=== PATIENT | female | born 1955 | race American Indian/Alaskan Native ===

== ENCOUNTER 2016-10-25 14:22 | Observation (INO) | payer MEDICARE, OTHER ==
[2016-10-25 14:45] VITALS: BMI 25.3
[2016-10-25] MEDS ORDERED: Sodium Chloride 0.9% 1,000 ML IV ONE (14:57)
--- NOTE | 2016-10-25 14:58 | ED PDOC ---
Arrival/HPI - General Chief Complaint: Weakness/Neurological Deficit Time Seen by Provider: 10/25/16 14:38 Historian: Patient - History of Present Illness Narrative History of Present Illness (Text): 10/25/16 14:59 61yo female with PMHx of Afib, Asthma, Hypertension, BIBA for complaint of generalized weakness. Reports clear productive cough since Saturday. States she had chest pain earlier today that lasted for minutes. Also admits to melena since Saturday. She saw her PMD 3weeks ago. Denies fever, chills, abdominal pain , nausea, vomiting, diarrhea, constipation, SOB, diaphoresis, LE edema, sore throat, sick contact, travel. Past Medical History - Provider Review Nursing Documentation Reviewed: Yes - Infectious Disease Hx of Infectious Diseases: None - Tetanus Immunization Tetanus Immunization: Unknown - Past Medical History Past Medical History: No Previous - Cardiac Hx Cardiac Disorders: Yes Hx Cardiac Arrhythmia: Yes Hx Heart Murmur: Yes Hx Hypertension: Yes - Pulmonary Hx Respiratory Disorders: Yes Hx Asthma: Yes Hx Chronic Obstructive Pulmonary Disease (COPD): Yes - Neurological Hx Neurological Disorder: No Hx Paralysis: No - HEENT Hx HEENT Disorder: No Hx Blind: No Hx Cataracts: No Hx Deafness: No Hx Difficulty Chewing: No Hx Epistaxis: No Hx Glaucoma: No Hx Macular Degeneration: No - Renal Hx Renal Disorder: No - Endocrine/Metabolic Hx Endocrine Disorders: No - Hematological/Oncological Hx Blood Disorders: Yes Hx Blood Transfusions: Yes (4 YRS AGO) - Integumentary Hx Dermatological Disorder: No Hx Cellulitis: No - Musculoskeletal/Rheumatological Hx Musculoskeletal Disorders: Yes Hx Falls: Yes - Gastrointestinal Hx Gastrointestinal Disorders: No Hx Crohn's Disease: No Hx Diverticulitis: No Hx Gastroesophageal Reflux: No Hx Gastrointestinal Ulcer: No Hx Liver Failure: No - Genitourinary/Gynecological Hx Genitourinary Disorders: No - Psychiatric Hx Psychophysiologic Disorder: No Hx Emotional Abuse: No Hx Physical Abuse: No Hx Substance Use: No - Surgical History Hx Cardiac Catheterization: Yes Hx Cholecystectomy: Yes Other/Comment: B/L Bunion removal to feet - Anesthesia Hx Anesthesia Reactions: No Hx Malignant Hyperthermia: No - Suicidal Assessment Feels Threatened In Home Enviroment: No Family/Social History - Physician Review Nursing Documentation Reviewed: Yes Family/Social History: Unknown Family HX Smoking Status: Former Smoker Hx Alcohol Use: No Amount per day: 6 Hx Substance Use: No Hx Substance Use Treatment: No Allergies/Home Meds Allergies/Adverse Reactions: Allergies ALTOIDS Allergy (Intermediate, Uncoded 10/25/16 14:45) SWELLING FACE/LIPS UNKNOWN FOOD Allergy (Intermediate, Uncoded 10/25/16 14:45) SWELLING FACE/LIPS SEEN IN ED 03/07/16 Home Medications: Home Meds Medication Instructions Recorded Confirmed Aspirin [Aspir 81] 81 mg PO DAILY 01/16/13 06/10/16 Fluticasone/Salmeterol [Advair 1 puff IH BID PRN 01/16/13 06/10/16 250-50 Diskus] Metoprolol Tartrate [Lopressor] 25 mg PO BID 01/16/13 06/10/16 Tiotropium [Spiriva] 18 mcg IH DAILY PRN 01/16/13 06/10/16 Enalapril Maleate [Enalapril] 5 mg PO QAM 03/08/16 06/10/16 Furosemide 40 mg PO QAM 03/08/16 06/10/16 traMADol [Ultram] 50 mg PO TID PRN 05/29/16 06/10/16 Review of Systems - Physician Review All systems were reviewed & negative as marked: Yes - Review of Systems Constitutional: Fatigue Eyes: Normal ENT: Normal Respiratory: Normal Cardiovascular: Chest Pain. absent: Palpitations, Edema, Calf Pain Gastrointestinal: Stool Changes (Melena). absent: Abdominal Pain, Constipation , Diarrhea, Nausea, Vomiting, Hematochezia, Hematemesis Genitourinary Female: Normal Musculoskeletal: Normal Skin: Normal Neurological: Normal Endocrine: Normal Hemo/Lymphatic: Normal Psychiatric: Normal Physical Exam Vital Signs Reviewed: Yes Vital Signs Temp Pulse Resp BP Pulse Ox 10/25/16 20:08 102 H 20 123/81 100 10/25/16 17:00 126 H 18 152/79 H 100 10/25/16 15:47 98.4 F 115 H 20 158/86 H 100 Temperature: Afebrile Blood Pressure: Normal Pulse: Regular Respiratory Rate: Normal Appearance: Positive for: Well-Appearing, Non-Toxic, Comfortable Pain Distress: None Mental Status: Positive for: Alert and Oriented X 3 - Systems Exam Head: Present: Atraumatic, Normocephalic Pupils: Present: PERRL Extroacular Muscles: Present: EOMI Conjunctiva: Present: Normal Mouth: Present: Moist Mucous Membranes Neck: Present: Normal Range of Motion Respiratory/Chest: Present: Clear to Auscultation, Good Air Exchange. No: Respiratory Distress, Accessory Muscle Use, Wheezes, Decreased Breath Sounds, Rales, Retracting, Rhonchi Cardiovascular: Present: Regular Rate and Rhythm, Normal S1, S2. No: Murmurs Abdomen: Present: Normal Bowel Sounds. No: Tenderness, Distention, Peritoneal Signs, Rebound, Guarding, McBurney's Point Tender, Rovsing's Sign Present Back: Present: Normal Inspection Upper Extremity: Present: Normal Inspection. No: Cyanosis, Edema Lower Extremity: Present: Normal Inspection. No: Edema Neurological: Present: GCS=15, CN II-XII Intact, Speech Normal Skin: Present: Warm, Dry, Normal Color. No: Rashes Psychiatric: Present: Alert, Oriented x 3, Normal Insight, Normal Concentration Medical Decision Making ED Course and Treatment: 10/25/16 22:30 PT presented for stated history. She remained tacy in ED even with hydration. Lab was reviewed with elevated LFT, Cr. and Lactate noted. Elevated LFT was pt' s baseline when compared to previous lab result. Review of pt's lab and VS however indicated that pt does not meet the Sepsis criteria. She had no leukocytosis and hypotensive. CXR was NAD. Rocephin and Zithromax was given secondary to pt's complaint of productive cough and history of COPD. Case was DW Dr. Guerra and pt was placed in Tele OBS. Result and plan was DW the pt and she agreed. - Lab Interpretations Lab Results: 10/25/16 15:59 10/25/16 15:59 Lab Results 10/25/16 18:10: Influenza Typ A,B (EIA) Negative for flu a/b 10/25/16 16:05: Phosphorus 3.4, Magnesium 1.6 L 10/25/16 15:59: WBC 7.2, RBC 3.72, Hgb 11.7 L, Hct 33.9 L, MCV 91.1, MCH 31.5, MCHC 34.5, RDW 14.5, Plt Count 249, MPV 9.9, Gran % 62.4, Lymph % (Auto) 22.6, Cooper % (Auto) 14.1 H, Eos % (Auto) 0.6 L, Baso % (Auto) 0.3, Gran # 4.48, Lymph # 1.6, Cooper # 1.0 H, Eos # 0.0, Baso # 0.02, PT 10.7, INR 0.99, APTT 23.3 L, pO2 36, VBG pH 7.30 L, VBG pCO2 51.0, VBG HCO3 25.1, VBG Total CO2 26.7, VBG O2 Sat (Calc) 68.2 H, VBG Base Excess -2.0 L, VBG Potassium 3.7, Glucose 176 H, Lactate 4.4 H*, FiO2 21.0, Sodium 133.0, Potassium 4.0, Chloride 97.0 L, Carbon Dioxide 25, Anion Gap 16, BUN 17, Creatinine 1.5 H, Est GFR ( Amer) 43, Est GFR (Non-Af Amer) 35, Random Glucose 169 H, Calcium 9.9, Total Bilirubin 1.0 , AST 175 H, ALT 113 H, Alkaline Phosphatase 154 H, Lactate Dehydrogenase 690, Total Creatine Kinase 70, Troponin I < 0.01, Total Protein 7.9, Albumin 4.1, Globulin 3.8, Albumin/Globulin Ratio 1.1, Venous Blood Potassium 3.7 - RAD Interpretation Radiology Orders: 10/25/16 14:58 CHEST PORTABLE [RAD] Stat - EKG Interpretation Interpreted by ED Physician: Yes (sinus tachy with PAC; LAD; LVH @ 101bpm. No ST changes) - Medication Orders Current Medication Orders: Discontinued Medications Sodium Chloride (Sodium Chloride 0.9%) 1,000 mls @ 250 mls/hr IV .Q4H ONE Stop: 10/25/16 18:56 Last Admin: 10/25/16 16:14 Dose: 250 MLS/HR eMAR Start Stop Document 10/25/16 16:14 OCS (Rec: 10/25/16 16:14 OCS [facility] [id number]) Intravenous Solution Start Date 10/25/16 Start Time 16:14 Sodium Chloride 2,200 ml/ IV (SUPPLIES) 2,200 mls @ 4,408.92 mls/hr IV ONCE ONE PRN Reason: 60 ML/KG/HR Stop: 10/25/16 16:25 Azithromycin (Zithromax 500mg In Ns) 250 mls @ 167 mls/hr IVPB STAT STA PRN Reason: Protocol Stop: 10/25/16 18:47 Last Admin: 10/25/16 20:27 Dose: 167 MLS/HR eMAR Start Stop Document 10/25/16 20:27 OCS (Rec: 10/25/16 20:28 OCS [facility] [id number]) Intravenous Solution Start Date 10/25/16 Start Time 20:28 Ceftriaxone Sodium (Rocephin 1 Gram Ivpb) 100 mls @ 200 mls/hr IVPB STAT STA PRN Reason: Protocol Stop: 10/25/16 17:46 Last Admin: 10/25/16 17:31 Dose: 200 MLS/HR eMAR Start Stop Document 10/25/16 17:31 OCS (Rec: 10/25/16 17:31 OCS [facility] [id number]) Intravenous Solution Start Date 10/25/16 Start Time 17:31 Disposition/Present on Arrival - Present on Arrival Any Indicators Present on Arrival: No History of DVT/PE: No History of Uncontrolled Diabetes: No Urinary Catheter: No History of Decub. Ulcer: No History Surgical Site Infection Following: None - Disposition Have Diagnosis and Disposition been Completed?: Yes Diagnosis: Chest pain, Bronchitis, Malaise, Elevated liver function tests, Dehydration Disposition: HOME/ ROUTINE Disposition Time: 17:20 Patient Problems: Current Active Problems Problem Status Diagnosed Bronchitis Acute Chest pain Acute Malaise Acute Condition: FAIR
--- NOTE | 2016-10-25 15:36 | RAD ---
HISTORY: chest pain COMPARISON: 07/20/2016 FINDINGS: LUNGS: No active pulmonary disease. PLEURA: No significant pleural effusion identified, no pneumothorax apparent. CARDIOVASCULAR: Normal. OSSEOUS STRUCTURES: No significant abnormalities. VISUALIZED UPPER ABDOMEN: Normal. OTHER FINDINGS: None. IMPRESSION: No active disease.
[2016-10-25 16:07] LABS: ADD MANUAL DIFF? NO
[2016-10-25 16:13] LABS: BASO # 0.02 K/mm3 (0.0-2.0); BASO % 0.3 % (0.0-3.0); EOS % 0.6 % (1.5-5.0); GRAN # 4.48 (1.4-6.5); GRAN % 62.4 % (50.0-68.0); HEMATOCRIT 33.9 % (36.0-48.0); LYMPH # 1.6 (1.2-3.4); LYMPH % 22.6 % (22.0-35.0); MEAN CELL VOLUME 91.1 fL (80.0-105.0); MEAN CORPUSCULAR HEMOGLOBIN 31.5 pg (25.0-35.0); MEAN CORPUSCULAR HGB CONC 34.5 g/dl (31.0-37.0); MEAN PLATELET VOLUME 9.9 fl (7.0-11.0); MONO % 14.1 % (1.0-6.0); PLATELET COUNT 249 10^3/uL (120.0-450.0); RED CELL DISTRIBUTION WIDTH 14.5 % (11.5-14.5); WHITE BLOOD COUNT 7.2 10^3/ul (4.5-11.0)
[2016-10-25 16:21] LABS: ALB/GLOB RATIO 1.1 (1.1-1.8); ALKALINE PHOSPHATASE 154 U/L (38-133); ALT/SGPT 113 U/L (7-56); AST/SGOT 175 U/L (15-39); BLOOD UREA NITROGEN 17 mg/dL (7-21); CALCIUM 9.9 mg/dL (8.4-10.5); CARBON DIOXIDE 25 mmol/L (21-33); CHLORIDE 95 mmol/L (98-107); GFR AFRICAN-AMERICAN 43; GLUCOSE,RANDOM 169 mg/dL (70-110); INR 0.99 (0.93-1.08); PARTIAL THROMBOPLASTIN TIME 23.3 Seconds (23.7-30.8); SODIUM 132 mmol/L (132-148); TOTAL PROTEIN 7.9 g/dL (5.8-8.3)
[2016-10-25 16:34] LABS: TROPONIN I < 0.01 ng/mL
[2016-10-25 17:01] LABS: MAGNESIUM 1.6 mg/dL (1.7-2.2); PHOSPHOROUS 3.4 mg/dL (2.5-4.5)
[2016-10-25] MEDS ORDERED: cefTRIAXone 1 gm 100 ML IVPB STA (17:17)
[2016-10-25] MEDS ORDERED: Azithromycin 500MG/NS 250ml 250 ML IVPB STA (17:18)
[2016-10-25 20:00] LABS: URINE BILIRUBIN NEGATIVE (NEGATIVE); URINE BLOOD NEGATIVE (NEGATIVE); URINE GLUCOSE (UA) NEGATIVE (NEGATIVE); URINE KETONE TRACE mg/dL (NEGATIVE); URINE LEUKOCYTE ESTERASE TRACE Leu/uL (NEGATIVE); URINE PROTEIN NEGATIVE mg/dL (<30 mg/dL); URINE UROBILINOGEN 0.2 E.U./dL (<1 E.U./dL)
[2016-10-25 20:09] LABS: URINE APPEARANCE SL CLOUDY (CLEAR); URINE COLOR DARK YELLOW (YELLOW)
[2016-10-25 20:19] LABS: URINE RBC 0 - 2 /hpf (0-2)
[2016-10-25 20:20] LABS: URINE BACTERIA RARE (NEG); URINE WBC 0 - 2 /hpf (0-6)
[2016-10-26] MEDS ORDERED: Tiotropium 18 mcg Cap For Inhalation IH PRN (07:10)
[2016-10-26] MEDS ORDERED: Sodium Chloride 0.45% 1,000 ML IV SCH ×2 (07:30→08:30)
[2016-10-26] MEDS ORDERED: Magnesium Sulfate 2 GM in Sodium Chloride 0.9% 100 ML IVPB ONE (08:23)
[2016-10-26 09:04] LABS: ALB/GLOB RATIO 1.1 (1.1-1.8); ALKALINE PHOSPHATASE 120 U/L (38-133); ALT/SGPT 93 U/L (7-56); AST/SGOT 124 U/L (15-39); BILIRUBIN,TOTAL 0.8 mg/dL (0.2-1.3); BLOOD UREA NITROGEN 14 mg/dL (7-21); CARBON DIOXIDE 24 mmol/L (21-33); CHLORIDE 101 mmol/L (98-107); CHOLESTEROL 171 mg/dL (130-200); GFR AFRICAN-AMERICAN > 60; GLUCOSE,RANDOM 105 mg/dL (70-110); MAGNESIUM 1.5 mg/dL (1.7-2.2); PHOSPHOROUS 3.6 mg/dL (2.5-4.5); POTASSIUM 3.4 mmol/L (3.6-5.0); SODIUM 135 mmol/L (132-148); TOTAL PROTEIN 6.8 g/dL (5.8-8.3)
--- NOTE | 2016-10-26 09:14 | US ---
HISTORY: high lfts and high creatinine COMPARISON: None available. TECHNIQUE: Sonographic evaluation of the abdomen. FINDINGS: LIVER: Measures 20.5 cm in sagittal dimension. Echogenic liver may be seen in setting of hepatic parenchymal disease or fatty infiltration. No focal hepatic mass identified. The main portal vein appears patent with normal directional flow. No intrahepatic bile duct dilatation. GALLBLADDER: Cholecystectomy. COMMON BILE DUCT: Measures 4 mm. PANCREAS: Not well visualized. RIGHT KIDNEY: Measures 9.8 x 4.4 x 5.5cm. No obstructing calculus or hydronephrosis identified. LEFT KIDNEY: Measures 8.2 x 5.2 x 5.8cm. No obstructing calculus or hydronephrosis identified. SPLEEN: Measures approximately 5.0 x 3.1 x 2.5 cm. AORTA: Not well-visualized. IVC: Not well-visualized. OTHER FINDINGS: None. IMPRESSION: Hepatomegaly. Echogenic liver may be seen in setting of hepatic parenchymal disease or fatty infiltration. Cholecystectomy.
[2016-10-26] MEDS ORDERED: Potassium Chloride 20 mEq ER Tab PO ONE (09:50)
--- NOTE | 2016-10-26 10:14 | CON ---
DATE: 10/26/2016 SERVICE: Cardiology. CONSULTING PHYSICIAN: Dr. Brittany Beebe. REASON FOR CONSULTATION: Cardiac evaluation. History of mitral regurgitation, shortness of breath, admitted with chest pain, palpitation, felt like she was going to pass out. BRIEF CLINICAL HISTORY: This is a 61-year-old female with past medical history of asthma, paroxysmal atrial fibrillation, hypertension, mitral regurgitation, status post cardiac catheterization many ye ars ago, normal coronaries, moderate to severe mitral regurgitation, papillary muscle dysfunction. T EE was suggested, but patient never showed up and never followed through, came in yesterday with com plaint of very brief episode of chest pain for 1 minute. Prior to that, patient had shortness of [place] ath, felt like she was going to passed out, used pump couple of times, but did not get better (albute rol), so came to the Emergency Room. Denies any episode of chest pain, but complained of shortness o f breath, dyspnea on exertion. PAST MEDICAL HISTORY: Significant for hypertension, history of mitral regurgitation, papillary muscl e dysfunction. MEDINA was suggested, but the patient never showed up. History of asthma and questionab le history of palpitation and paroxysmal atrial fibrillation. PAST SURGICAL HISTORY: Significant for surgery for carpal tunnel syndrome and history of cholecystec aristides and history of bunion removal from the toe. Previous cardiac workup as follows: The patient had a cardiac catheterization done on 02/05/2013 claudia t shows normal coronaries, moderate to severe mitral regurgitation. The patient had a stress test do ne on 01/27/2015 which was negative, ejection fraction 64%, negative for ischemia. The patient had ec ho on 01/26/2015 that shows ejection fraction 50%, moderate mitral regurgitation, mild to moderate tri cuspid regurg, RV systolic pressure 35. Echo shows papillary muscle dysfunction, mild to moderate mi tral regurg, RV systolic pressure 35. MEDINA was suggested and scheduled. The patient never showed up. SOCIAL HISTORY: Denies smoking. Denies any history of alcohol abuse, socially drinks alcohol. FAMILY HISTORY: One brother at the age of 39 with MD. ALLERGIES: ALLERGY TO UNKNOWN FOOD. PHYSICAL EXAMINATION: VITAL SIGNS: Height of the patient 5 feet 7 inches, weight of the [id number] pounds, body mass index 25.4 kg/m2. Temperature afebrile, heart rate 120, blood pressure 142/89. HEENT: PERRLA. Extraocular muscles intact. NECK: Supple. No carotid bruits. No thyromegaly. CHEST: Clear to auscultation. HEART: S1, S2 regular. ABDOMEN: Soft. EXTREMITIES: Clubbing and cyanosis negative. LABORATORY DATA: Blood workup as follows: WBC 7.8, hemoglobin 11.7, hematocrit 33.9, platelet count 249. Chemistry shows sodium 130, potassium 4, chloride 95, carbon dioxide 16, anion gap of 17, BUN 17, creatinine 1.5. IMPRESSION: Acute kidney injury, sinus tachycardia, history of mitral regurgitation, moderate to sev ere; papillary muscle dysfunction, asthma, paroxysmal atrial fibrillation, status post cardiac cathet erization 02/05/2013, normal coronaries, status post a stress test 01/27/2015, normal cardiac perfusi on study. History of echo 01/26/2015 that shows ejection fraction 50%, moderate mitral regurgitation, papillary muscle dysfunction, mild to moderate tricuspid regurgitation, right ventricular systolic p ressure 35. Transesophageal echocardiogram was recommended and scheduled, but patient never showed u p. RECOMMENDATION: 1. We will lower the fluid to prevent going into pulmonary edema. The patient has mitral regurgitat ion. We will cut down to 50 mL an hour. 2. Schedule repeat echo to assess LV function and mitral regurgitation. We will get a stress test t o rule out any ischemia. Low-dose beta-jasmyn. We will follow with you with a lipid profile, TSH, thyroid profile, lipid profile and hemoglobin A1c because fasting blood sugar 169. We will follow wi th you. Also, supplement magnesium and repeat the lab in the morning. Thank you, Dr. Guerra, for providing us the opportunity in taking care of the patient. Brittany Beebe MD cc: [id number] TT: 10/26/2016 10:14:10 Confirmation # [id number] Dictation # [id number] tn
--- NOTE | 2016-10-26 10:19 | HP ---
CHIEF COMPLAINT: Generalized weakness, chest pain. HISTORY OF PRESENT ILLNESS: According to the patient, she feels whole body aches, general weakness, a little bit of cough for the last few days. She did have chest pain for a few minutes, then went aw ay and keeps coming back again. The patient denied any relation to exertion. She has that pain whil e she is sitting. She has no nausea, no dizziness, no other complaint. The patient also denied any fever, chills. However, she has these symptoms for the last few days, seems getting more frequent of chest pain. Her body aches are still there and she still feels generally weak. PAST MEDICAL HISTORY: She has history of hypertension, high cholesterol, history of gout and pseudog out. She had history of back cyst, surgical removed cyst from her back and bunion surgery. She had history of supraventricular tachycardia, palpitations, cardiac arrhythmia, supraventricular, mitral r egurg. No history of coronary artery disease, no history of any cardiac events like NH. She also do es have a history of asthma, sometimes she uses inhalers. ALLERGIES: SHE SAID ALTOIDS, BUT NO OTHER ALLERGIES. SOCIAL HISTORY: No smoking, no drinking. She lives by herself. FAMILY HISTORY: She had a brother had a heart attack at age 39. REVIEW OF SYSTEMS: Shows complaint of knee arthritis, knee pain, back pain. Sometimes she does comp candi of dyspnea or cough, wheezing. Otherwise, negative. HOME MEDICATIONS: She has tramadol, Cardizem-CD 240, Spiriva inhalers, Naprosyn, Lopressor 25 b.i.d. , Mobic 7.5. Probably, patient does not take both of them, but she takes it when she needs it. Lasi x 40 every day, Advair, enalapril 5 mg once a day, colchicine 0.6 once a day, aspirin 81 once a day, allopurinol 100 once a day. PHYSICAL EXAMINATION: Please be advised that patient was seen on 10/25/2016: GENERAL: The patient in the bed. She is comfortable, no respiratory distress, does not seem to be i n any significant distress. VITAL SIGNS: Temperature 98, heart rate 115, blood pressure 158/86, respirations 20, saturating 100% . HEAD AND NECK: Normal. No JVD, no thyromegaly. CHEST: Clear. CARDIAC: First sound, second sound normal. ABDOMEN: Soft, nontender, obese. EXTREMITIES: No edema. NEUROLOGIC: She is normal. She is alert, awake, oriented x 3, moves all extremities. LABORATORY DATA: White count 7.2, hemoglobin 11.7, hematocrit 33.9, platelets 249. Chemistry: Sodi um 132, potassium 4, chloride 95, bicarbonate 25, BUN 17, creatinine 1.5, blood sugar 169. Her liver function test: AST and ALT is elevated including also alkaline phosphatase. The patient also had m agnesium which is low at 1.6. Her lactate level was slightly elevated. The patient also had a urina lysis, which was negative. She also had serology for influenza type A and B and it was negative. Sh e also had a PT/INR, which is normal, PTT was normal. Her ABG shows pH 7.30, pCO2 36, pCO2 51. That is venous blood and lactate level was 4.4 on room air. Chest x-ray also was done, which shows no active pulmonary disease. Cardiovascular is normal and the pleura with no significant effusion. Also, she had an EKG was reported. There is no acute ST eleva tion reported. IMPRESSION AND PLAN: 1. This is a 61-year-old female with history of hypertension, moderate mitral regurgitation. Came i n with generalized weakness, cough, chest pain, which is not related to her cough. We will admit the patient to telemetry. We will get cardiac enzymes, cardiology consult, ID consult. Cardiology, Dr. Beebe. ID consult, Dr. Florez. We will put the patient on Rocephin, Zithromax for now. Cultures hav e been obtained. 2. Renal insufficiency. 3. Abnormal liver functions test, hepatitis, could be drug induced versus vital. Will consider GI c onsult. Will give the patient IV fluid. Repeat labs in the morning. We did advise the patient not to take nonsteroidals unnecessarily. Hold off on any nonsteroidal anti-inflammatory drugs. IV hydra tion. Hold on Lasix. Continue IV. Repeat labs and will follow up clinically. Ultrasound of the li can and kidney has been ordered and will continue follow up with the patient and other consultants. Baltazar Guerra MD cc: [phone] TT: 10/26/2016 10:18:48 en
[2016-10-26] MEDS: diltiaZEM 240 mg/24 Hours CD Cap PO SCH (11:30)
[2016-10-26] MEDS: cefTRIAXone 1 gm 100 ML IVPB SCH (12:45)
--- NOTE | 2016-10-26 13:33 | CARD ---
APPROVED REPORT EKG Measurement Heart [id number] <Conclusion> Sinus tachycardia with premature atrial complexes with aberrant conduction Left axis deviation Moderate voltage criteria for LVH, may be normal variant Nonspecific ST abnormality Abnormal ECG
[2016-10-26] MEDS: Azithromycin 500MG/NS 250ml 250 ML IVPB SCH ×2 (13:41)
--- NOTE | 2016-10-26 17:46 | CARD ---
APPROVED REPORT EXAM: Two-dimensional and M-mode echocardiogram with Doppler and color Doppler. INDICATION CP/LVFX/MR 2D DIMENSIONS IVSd1.0 (0.7-1.1cm)LVDd4.1 (3.9-5.9cm) PWd1.3 (0.7-1.1cm)LVDs3.0 (2.5-4.0cm) FS (%) 27.4 %LVEF (%)53.6 (>50%) M-Mode DIMENSIONS Aortic Root3.10 (2.2-3.7cm)Aortic Cusp Exc.1.50 (1.5-2.0cm) Aortic Valve AoV Peak Clpavxzg758.0cm/[place] Peak GR.9mmHg Mitral Valve MV E Pwrvowbv51.3cm/sMV A Svgoxzyy989.0cm/sE/A ratio0.5 TDI Lateral E' Peak V8.87cm/sMedial E' Peak V7.70cm/sE/Lateral E'6.1 E/Medial E'7.1 Pulmonary Valve PV Peak Ubivknfz58.9cm/sPV Peak Grad.2mmHg Tricuspid Valve TR Peak Mirclino343us/sRAP [id number] Peak Gr.29mmHg [id number] LEFT VENTRICLE The left ventricle is normal size. There is normal left ventricular wall thickness. The left ventricular function is normal.EF-55-60% There is borderline hypokinesis in the apical anterior wall. Transmitral Doppler flow pattern is Grade III-reversible restrictive diastolic dysfunction. No left ventricle thrombus noted on this study. There is no ventricular septal defect visualized. There is no left ventricular aneurysm. There is no mass noted in the left ventricle. RIGHT VENTRICLE The right ventricle is mildly to moderately dilated. There is normal right ventricular wall thickness. Systolic function of RV is mildly reduced. ATRIA The left atrium is mildly dilated. The right atrium is mildly dilated. The atrial septum is aneurysmal. AORTIC VALVE The aortic valve is thickened but opens well. There is trace aortic regurgitation. There is no aortic valvular stenosis. There is no aortic valvular vegetation. MITRAL VALVE The mitral valve is thickened but opens well. Mitral annular calcification is mild to moderate. Mitral regurgitation is severe. The mitral regurgitant jet is posteriorly directed, which is consistent with anterior leaflet pathology. There is no mitral valve stenosis. A mild mitral valve prolapse is present, of anterior leaflet TRICUSPID VALVE The tricuspid valve leaflets are thickened , but open well. There is moderate tricuspid regurgitation.RVSP-39 mmof Hg. There is no tricuspid valve stenosis. There is no tricuspid valve prolapse or vegetation. PULMONIC VALVE The pulmonic valve is mildly thickened. There is no pulmonic valvular regurgitation. There is no pulmonic valvular stenosis. GREAT VESSELS The aortic root is normal in size. The ascending aorta is normal in size. The pulmonary artery is normal. The IVC is normal in size and collapses >50% with inspiration. PERICARDIAL EFFUSION There is no pleural effusion. There is no pericardial effusion. <Conclusion> The left ventricle is normal size. There is normal left ventricular wall thickness. The left ventricular function is normal.EF-55-60% The right ventricle is mildly to moderately dilated. Systolic function of RV is mildly reduced. There is trace aortic regurgitation. Mitral regurgitation is severe. The mitral regurgitant jet is posteriorly directed, which is consistent with anterior leaflet pathology. There is moderate tricuspid regurgitation.RVSP-39 mmof Hg. The IVC is normal in size and collapses >50% with inspiration. There is no pericardial effusion.
--- NOTE | 2016-10-26 18:15 | CP.PCM.CON ---
History of Present Illness - History of Present Illness History of Present Illness: 61 year old female with PMH of atrial fibrillation, asthma, HTN came in to [facility] because of generalized weakness, associated with cough productive of clear phlegm and some shortness of breath. She denies fever or chills, no nausea or vomiting, no chest pain, no headache or dizziness, no abdominal pain, no diarrhea, no dysuria, no sore throat, no colds. Infectious Diseases consult is requested to further evaluate and manage. Review of Systems - Review of Systems All systems: reviewed and no additional remarkable complaints except (as per HPI ) Past Patient History - Infectious Disease Hx of Infectious Diseases: None - Tetanus Immunizations Tetanus Immunization: Unknown - Past Social History Smoking Status: Former Smoker - CARDIAC Hx Cardiac Disorders: Yes Hx Cardia Arrhythmia: Yes Hx Heart Murmur: Yes Hx Hypertension: Yes - PULMONARY Hx Respiratory Disorders: Yes Hx Asthma: Yes Hx Chronic Obstructive Pulmonary Disease (COPD): Yes - NEUROLOGICAL Hx Neurological Disorder: No Hx Paralysis: No - HEENT Hx HEENT Problems: No Hx Blind: No Hx Cataracts: No Hx Deafness: No Hx Difficulty Chewing: No Hx Epistaxis: No Hx Glaucoma: No Hx Macular Degeneration: No - RENAL Hx Chronic Kidney Disease: No - ENDOCRINE/METABOLIC Hx Endocrine Disorders: No - HEMATOLOGICAL/ONCOLOGICAL Hx Blood Disorders: Yes Hx Blood Transfusions: Yes (4 YRS AGO) - INTEGUMENTARY Hx Dermatological Problems: No Hx Cellulitis: No - MUSCULOSKELETAL/RHEUMATOLOGICAL Hx Musculoskeletal Disorders: Yes Hx Falls: Yes - GASTROINTESTINAL Hx Gastrointestinal Disorders: No Hx Crohn's Disease: No Hx Diverticulitis: No Hx Gastroesophageal Reflux: No Hx Liver Failure: No - GENITOURINARY/GYNECOLOGICAL Hx Genitourinary Disorders: No - PSYCHIATRIC Hx Psychophysiologic Disorder: No Hx Emotional Abuse: No Hx Physical Abuse: No Hx Substance Use: No - SURGICAL HISTORY Hx Cardiac Catheterization: Yes Hx Cholecystectomy: Yes Other/Comment: B/L Bunion removal to feet - ANESTHESIA Hx Anesthesia Reactions: No Hx Malignant Hyperthermia: No Meds Allergies/Adverse Reactions: Allergies Allergy/AdvReac Type Severity Reaction Status Date / Time ALTOIDS Allergy Intermediate SWELLING Uncoded 10/25/16 14:45 FACE/LIPS UNKNOWN FOOD Allergy Intermediate SWELLING Uncoded 10/25/16 14:45 FACE/LIPS Physical Exam - Constitutional Appears: Non-toxic, No Acute Distress - Head Exam Head Exam: NORMAL INSPECTION - ENT Exam ENT Exam: Mucous Membranes Moist - Neck Exam Neck exam: Negative for: Lymphadenopathy, Meningismus - Respiratory Exam Respiratory Exam: Decreased Breath Sounds - Cardiovascular Exam Cardiovascular Exam: +S1, +S2 - GI/Abdominal Exam GI & Abdominal Exam: Soft. absent: Tenderness Results - Vital Signs Recent Vital Signs: Last Vital Signs Temp 98.4 F 10/25/16 15:47 Pulse 102 H 10/25/16 20:08 Resp 20 10/25/16 20:08 BP 123/81 10/25/16 20:08 Pulse Ox 100 10/25/16 20:08 - Labs Result Diagrams: 10/25/16 15:59 10/26/16 08:30 Labs: Laboratory Results - last 24 hr 10/25/16 19:45 Urine Color Dark yellow Urine Appearance Sl cloudy Urine pH 6.0 Ur Specific [place] 1.020 Urine Protein Negative Urine Glucose (UA) Negative Urine Ketones Trace H Urine Blood Negative Urine Nitrate Negative Urine Bilirubin Negative Urine Urobilinogen 0.2 Ur Leukocyte Esterase Trace H Urine RBC 0 - 2 Urine WBC 0 - 2 Ur Epithelial Cells 1 - 3 Urine Bacteria Rare Assessment & Plan - Assessment and Plan (Free Text) Plan: Assessment Consider acute bronchitis atrial fibrillation asthma HTN Plan Started patient on Rocephin and Zithromax; follow up blood cx; reviewed CXR which did not show infiltrates; PCT is only 0.15 Will follow clinically
--- NOTE | 2016-10-26 19:25 | CON ---
DATE: 10/26/2016 This patient was seen and evaluated earlier today. This is a 61-year-old patient with a past medical history of paroxysmal atrial fibrillation, hypertension, asthma, admitted with chest pain. The indra ent also was admitted with chest pain and dizziness. The patient also complains of some dark stool s scooter Saturday. No history of vomiting blood. No abdominal pain. The patient also complains of exerti onal shortness of breath. She said this has been progressively for the last 2 years, but recently go t worse. Other past medical history as above. The patient has a history of asthma, history of a colonoscopy done in the [facility] about close to 5 year s ago, history of carpal tunnel syndrome surgery, status post cholecystectomy, and history of bunion surgery done in the past. SOCIAL HISTORY: Denies smoking. Alcohol socially over the weekend. FAMILY HISTORY: Positive for PR, coronary artery disease. Brother at the age of 39 with PR. ALLERGIES TO SOME FOOD. REVIEW OF SYSTEMS: Positive as above. Other systems reviewed and negative. On examination, the patient is lying on the bed not in acute distress. Temperature is 97.8, pulse 97, blood pressure is 105/59, respirations 18. HENT: Atraumatic. Anicteric. NECK: Supple. HEART: S1, S2 heard. LUNGS: Bilateral air entry present. ABDOMEN: Soft. There was no tenderness. HEART: S1, S2 is heard. There was a systolic murmur present. ABDOMEN: Soft. There is no mass, no tenderness. EXTREMITIES: No edema, no cyanosis. CLINICAL LABORATORIES: Hemoglobin 11.7, hematocrit 33.9, WBC 7.2, platelets 249, BUN 14, creatinine 0.9, total bilirubin is 1.5. AST is 134, ALT is 93, improving. The patient did have an ultrasound scan of the abdomen done status post cholecystectomy. Common bile duct is normal; measures only 4 mm. IMPRESSION: This 61-year-old patient with significant valvular disease secondary to the papular dysf unction, and a history of paroxysmal atrial fibrillation in the past, admitted with chest pain and al so shortness of breath. The patient also was found to have an elevated liver enzymes. Status post c holecystectomy, common bile duct is normal. The patient has come in with exertion. The likelihood o f questionable history of dark stools. On exam, the patient's hemoglobin was normal at 11.7 . Her other comorbidities include asthma, hypertension, asthma, suspected asthmatic bronchitis. The patient has been started on antibiotic, ce ftriaxone. The LFTs showing improving trend. The most likely cause for the LFTs could be secondary to the hepat ic congestion. Hepatitis profile has been requested. Will follow up on that. Followup of CBC. The patient did have a colonoscopy done close to 5 years ago in [facility]. She was told there were no polyp s. Will continue to closely follow up her care, and suggest further management based on the clinical cou rse. Sun Ramirez MD cc: [phone] TT: 10/26/2016 19:25:05 Confirmation # [id number] Dictation # [id number] geoffrey
[2016-10-27 05:52] VITALS: RESP 18
--- NOTE | 2016-10-27 06:55 | CP.PCM.PN ---
Subjective - Date & Time of Evaluation Date of Evaluation: 10/27/16 Time of Evaluation: 06:54 - Subjective Subjective: Nurse Maya calls :"Right sided chest pain." Patient was seen at bedside. Complains of waking up with left sided chest pain 20 minutes ago, at 8 /10 in the beginning now at 5/10, heaviness, no radiation of pain. No complaints of sob, nausea, sweating, palpitation. Has no other complaints. EKG troponin were ordered. This 61 year odl woman was admitted with body ache , generalized weakness, cough, Has PMH of HTN,HLD,Gout, pseudo gout, SVT, MR. Objective - Vital Signs/Intake and Output Vital Signs (last 24 hours): Temp Pulse Resp BP Pulse Ox 98.0 F 83 18 133/76 99 10/27/16 05:51 10/27/16 05:51 10/27/16 05:51 10/27/16 05:51 10/27/16 05:51 Intake and Output: 10/26/16 10/27/16 18:59 06:59 Intake Total 180 1610 Output Total 1300 Balance -1120 1610 - Medications Medications: Current Medications Allopurinol (Zyloprim) 100 mg PO DAILY [facility] Last Admin: 10/26/16 11:31 Dose: 100 mg Aspirin (Ecotrin) 81 mg PO DAILY [facility] Last Admin: 10/26/16 11:31 Dose: 81 mg Diltiazem HCl (Cardizem Cd) 240 mg PO DAILY [facility] Last Admin: 10/26/16 11:30 Dose: 240 mg Azithromycin (Zithromax 500mg In Ns) 250 mls @ 167 mls/hr IVPB DAILY [facility] PRN Reason: Protocol Last Admin: 10/26/16 13:41 Dose: 167 mls/hr Ceftriaxone Sodium (Rocephin 1 Gram Ivpb) 100 mls @ 100 mls/hr IVPB DAILY [facility] PRN Reason: Protocol Last Admin: 10/26/16 12:45 Dose: 100 mls/hr Lisinopril (Zestril) 5 mg PO DAILY [facility] Last Admin: 10/26/16 11:31 Dose: 5 mg Metoprolol Tartrate (Lopressor) 25 mg PO BID [facility] Last Admin: 10/26/16 18:15 Dose: 25 mg Tiotropium [place] (Spiriva) 18 mcg IH DAILY PRN PRN Reason: Cough and congestion Tramadol HCl (Ultram) 50 mg PO TID PRN PRN Reason: Pain, moderate (4-7) - Labs Labs: 10/26/16 08:30 PT 10.7 Seconds (9.9-11.8) 10/25/16 15:59 INR 0.99 (0.93-1.08) 10/25/16 15:59 APTT 23.3 Seconds (23.7-30.8) L 10/25/16 15:59 - Constitutional Appears: Well, No Acute Distress - Head Exam Head Exam: ATRAUMATIC, NORMAL INSPECTION, NORMOCEPHALIC - Eye Exam Eye Exam: Normal appearance - ENT Exam ENT Exam: Normal External Ear Exam - Neck Exam Neck Exam: Normal Inspection - Respiratory Exam Respiratory Exam: Clear to Ausculation Bilateral, NORMAL BREATHING PATTERN. absent: Accessory Muscle Use, Chest Wall Tenderness, Rhonchi, Wheezes, Respiratory Distress, Stridor - Cardiovascular Exam Cardiovascular Exam: REGULAR RHYTHM, +S1 (Normal.), +S2 (Normal.). absent: JVD - GI/Abdominal Exam GI & Abdominal Exam: Normal Bowel Sounds. absent: Distended - Rectal Exam Rectal Exam: Deferred - Extremities Exam Extremities Exam: Normal Inspection - Back Exam Back Exam: NORMAL INSPECTION - Neurological Exam Neurological Exam: Oriented x3 - Psychiatric Exam Psychiatric exam: Normal Affect, Normal Mood, Suicidal Ideation - Skin Skin Exam: Normal Color Assessment and Plan - Assessment and Plan (Free Text) Assessment: A/P : Chest pain. Abnormal LFT. Anemia. EKG- New flipped T's in 1,aVL, II. Troponin -Pending. 0.4mg SL NTG. Serial EKG,troponins.
[2016-10-27 08:14] LABS: HEMATOCRIT 29.2 % (36.0-48.0); MEAN CELL VOLUME 91.8 fL (80.0-105.0); MEAN CORPUSCULAR HEMOGLOBIN 31.4 pg (25.0-35.0); MEAN CORPUSCULAR HGB CONC 34.2 g/dl (31.0-37.0); MEAN PLATELET VOLUME 10.2 fl (7.0-11.0); RED CELL DISTRIBUTION WIDTH 14.7 % (11.5-14.5); WHITE BLOOD COUNT 4.8 10^3/ul (4.5-11.0)
[2016-10-27 08:18] LABS: ALKALINE PHOSPHATASE 112 U/L (38-133); ALT/SGPT 90 U/L (7-56); AST/SGOT 126 U/L (15-39); BILIRUBIN,TOTAL 0.7 mg/dL (0.2-1.3); BLOOD UREA NITROGEN 9 mg/dL (7-21); CALCIUM 9.2 mg/dL (8.4-10.5); CARBON DIOXIDE 23 mmol/L (21-33); CHLORIDE 104 mmol/L (98-107); GFR AFRICAN-AMERICAN > 60; GLUCOSE,RANDOM 91 mg/dL (70-110); POTASSIUM 3.8 mmol/L (3.6-5.0); SODIUM 135 mmol/L (132-148); TOTAL PROTEIN 6.5 g/dL (5.8-8.3)
[2016-10-27] MEDS: diltiaZEM 240 mg/24 Hours CD Cap PO SCH (10:27)
[2016-10-27] MEDS: cefTRIAXone 1 gm 100 ML IVPB SCH (10:30)
[2016-10-27] MEDS: Azithromycin 500MG/NS 250ml 250 ML IVPB SCH (10:30)
[2016-10-27 16:34] VITALS: TEMP 98; O2SAT 100
[2016-10-27 17:24] VITALS: BP 91/69; PULSE 75
[2016-10-27] MEDS ORDERED: Pantoprazole 40 mg EC Tab PO STA (18:07)
--- NOTE | 2016-10-27 19:55 | CARD ---
APPROVED REPORT EKG Measurement Heart [id number] <Conclusion> Sinus rhythm with premature atrial complexes Minimal voltage criteria for LVH, may be normal variant consider inferior ischemia Borderline ECG
--- NOTE | 2016-10-27 20:03 | CARD ---
APPROVED REPORT EKG Measurement Heart [id number] <Conclusion> arm lead reversal, Sinus rhythm with premature atrial complexes Septal infarct, age undetermined Abnormal ECG
--- NOTE | 2016-10-27 21:32 | CP.PCM.PN ---
Subjective - Date & Time of Evaluation Date of Evaluation: 10/27/16 Time of Evaluation: 12:30 - Subjective Subjective: Comfortable in bed, not in distress, not short of breath at rest but still with dyspnea on exertion. No fevers overnight. Objective - Vital Signs/Intake and Output Vital Signs (last 24 hours): Temp Pulse Resp BP Pulse Ox 98.0 F 75 18 91/69 L 100 10/27/16 16:33 10/27/16 17:23 10/27/16 16:33 10/27/16 17:23 10/27/16 16:33 Intake and Output: 10/27/16 10/28/16 18:59 06:59 Intake Total 1190 Balance 1190 - Medications Medications: Current Medications Allopurinol (Zyloprim) 100 mg PO DAILY [facility] Last Admin: 10/27/16 10:27 Dose: 100 mg Aspirin (Ecotrin) 81 mg PO DAILY [facility] Last Admin: 10/27/16 10:27 Dose: 81 mg Diltiazem HCl (Cardizem Cd) 240 mg PO DAILY [facility] Last Admin: 10/27/16 10:27 Dose: 240 mg Lisinopril (Zestril) 5 mg PO DAILY [facility] Last Admin: 10/27/16 10:27 Dose: 5 mg Metoprolol Tartrate (Lopressor) 25 mg PO BID [facility] Last Admin: 10/27/16 17:23 Dose: Not Given Pantoprazole Sodium (Protonix Ec Tab) 40 mg PO 0630 [facility] Tiotropium [place] (Spiriva) 18 mcg IH DAILY PRN PRN Reason: Cough and congestion Tramadol HCl (Ultram) 50 mg PO TID PRN PRN Reason: Pain, moderate (4-7) - Labs Labs: 10/27/16 08:00 10/27/16 08:00 PT 10.7 Seconds (9.9-11.8) 10/25/16 15:59 INR 0.99 (0.93-1.08) 10/25/16 15:59 APTT 23.3 Seconds (23.7-30.8) L 10/25/16 15:59 - Constitutional Appears: Non-toxic, No Acute Distress - Head Exam Head Exam: NORMAL INSPECTION - ENT Exam ENT Exam: Mucous Membranes Moist - Neck Exam Neck Exam: absent: Lymphadenopathy, Meningismus - Respiratory Exam Respiratory Exam: Decreased Breath Sounds - Cardiovascular Exam Cardiovascular Exam: +S1, +S2 - GI/Abdominal Exam GI & Abdominal Exam: Soft. absent: Tenderness Assessment and Plan - Assessment and Plan (Free Text) Plan: Assessment dyspnea probably related to pulmonary edema from severe mitral regurgitation; no evidence or infection noted atrial fibrillation asthma HTN Plan blood cx negative; reviewed CXR which did not show infiltrates; PCT is only 0.15 - will d/c antibiotics and observe Will follow clinically Follow up plan for mitral regurgitation
[2016-10-28] MEDS ORDERED: Pantoprazole 40 mg EC Tab PO SCH (06:30)
--- NOTE | 2016-10-28 07:34 | PN ---
DATE: 10/26/2016 This patient was seen and evaluated today. The patient is comfortable, tolerating the diet. PHYSICAL EXAMINATION: ABDOMEN: Soft. There is no mass palpable. No tenderness. HEART: S1, S2 heard. There is a systolic murmur present. LUNGS: Bilateral air entry present. EXTREMITIES: No edema. No cyanosis. LABORATORY DATA: Hemoglobin 10, hematocrit 29.2, WBCs 4.8, platelets 241. Chemistries showed LFTs: AST is 126, ALT is 90, . IMPRESSION: This is a 61-year-old patient was admitted with atypical chest pain. The patient also f ound to have elevated liver enzymes. GI consult was requested to evaluate. Sonogram was negative, s tatus post cholecystectomy. The patient does binge drinking, mainly during the weekend. Recen tly, she has increased her alcohol intake. She is very concerned about it. She is worried about the liver damage. I did explain to her that part of the liver enzyme elevation could be due to the alco hol and she has promised to change her lifestyle. The patient may benefit from the elective upper ga strointestinal endoscopic evaluation. She did give a history of having colonoscopy done more than 5 years ago. She said there were no polyps at that time. The patient is fully aware of the importance of followup outpatient to have this workup done. Thank you very much for allowing us to participate in the care of the patient. The patient would farhan efit from empiric PPI, Protonix therapy, empiric short course of PPI therapy. Sun Ramirez MD cc: [id number] TT: 10/28/2016 07:33:53 Confirmation # [id number] Dictation # [id number] en
--- NOTE | 2016-10-29 10:29 | DS ---
The patient - she feels better. She has no new complaints. She is comfortable. She wants to go [facility], and will be discharged home today. Her discharge date is 10/27/2016. PHYSICAL EXAMINATION: VITAL SIGNS: Today, temperature 98, heart rate 86, blood pressure 134/88, respirations 19, saturatio n 100%. HEAD AND NECK: Normal. No JVD, no thyromegaly. CHEST: Clear. CARDIAC: First and second sounds are normal. Systolic murmur. ABDOMEN: Soft, obese, nontender. EXTREMITIES: No edema, some varicose veins. NEUROLOGIC: Normal. LABORATORY STUDIES: The patient has urine culture negative. Blood culture negative, and she also walker d a stress thallium, which was negative for ischemia. Echocardiograph: Severe MR. The patient advis ed MEDINA. She refused now. DISCHARGE DIAGNOSES: 1. Severe mitral regurgitation. 2. Chest pain, noncardiac. 3. Hypertension, hypercholesterolemia. 4. Abnormal liver function test. We discontinued allopurinol. We discontinued metoprolol 25 b.i.d. ____ because of low blood pressure of 91, and we will keep enalapril 5 mg 1 a day, and we will keep Cardizem. We will monitor her vitals - blood pressure and heart rate, as outpatient. 5. Renal insufficiency, resolved. We will monitor her kidney function as outpatient. The patient also advised to hold off on colchicine, to hold off on any allopurinol since she has only 1 or 2 ____ per year, and we will monitor her condition for that - only use it p.r.n. for the colchi cine p.r.n. The patient advised to continue tramadol p.r.n., Cardizem CD 240 once a day, Spiriva, La six 40 mg in the morning, Advair, aspirin 81, Protonix 40 mg 1 a day, and follow up in the office. E nalapril 5 mg 1 a day. Baltazar Guerra MD cc: [phone] TT: 10/29/2016 10:28:27 geoffrey
--- NOTE | 2016-10-29 10:31 | PN ---
DATE: 10/26/2016 SUBJECTIVE: The patient is comfortable, no distress. She feels better. She had a stress test done, results still pending, but she feels better. PHYSICAL EXAMINATION: On 10/26: VITAL SIGNS: Temperature 98.4, heart rate 91, blood pressure 115/77, respirations 20, saturation 90 on room air. HEAD AND NECK: Normal. No JVD, no thyromegaly. CHEST: Clear, good entry. CARDIAC: First sound, second sounds are normal. ABDOMEN: Soft, nontender. EXTREMITIES: No edema. NEUROLOGIC: Normal. LABORATORY DATA: The patient had an echocardiogram; laboratory-alan, echocardiogram shows severe neetu ral regurgitations. She also had abnormal liver functions test and high creatinine, and labs were or dered for tomorrow to check on her creatinine and liver functions test. She had also liver ultrasoun d, which shows hepatomegaly, echogenic liver, may be seen in the setting of hepatic parenchymal disea ses or fatty infiltrations. IMPRESSION AND PLAN: 1. Chest pain, dyspnea. The patient was seen by Dr. Beebe. Echocardiography shows severe mitral reg urgitation, stress test still pending. The patient will need a transesophageal echo, she refused. W ill discuss with her later. 2. History of hypertension, history of paroxysmal atrial fibrillation, stable now. No need for any anticoagulation; however, with severe mitral regurgitation, she may need surgical evaluations includi ng mitral valve replacement or valve ligation. Will discuss further with the cardiology consult. 3. The patient does have a history of abnormal liver function tests, high creatinine. Will repeat l abs in the morning. We will repeat chemistry and liver enzymes and so far her ultrasound of the live r shows fatty liver. 4. Valvular heart disease, severe mitral regurgitation, transesophageal echocardiogram recommended. PLAN: Continue current treatment for now. We will follow up clinically. We will discuss further [facility] cardiology. Awaiting a stress test. Baltazar Guerra MD cc: [phone] TT: 10/29/2016 10:30:37 Confirmation # [id number] Dictation # [id number] an
== END 2016-10-27 19:30 | disposition home or self-care (01) ==
LOC: ED 14:22 → ERH 18:11 → 2RSO 21:05 → 5RNO 10-27 14:01
PROVIDERS: ADMIT Internal Medicine; ATTEND Internal Medicine
DX: I08.1 Rheumatic disorders of both mitral and tricuspid valves (principal); R07.89 Other chest pain; J20.9 Acute bronchitis, unspecified; I10 Essential (primary) hypertension; E78.5 Hyperlipidemia, unspecified; I48.0 Paroxysmal atrial fibrillation; J44.9 Chronic obstructive pulmonary disease, unspecified; E86.0 Dehydration; E78.00 Pure hypercholesterolemia, unspecified; J45.909 Unspecified asthma, uncomplicated; M10.9 Gout, unspecified; D64.9 Anemia, unspecified; J81.1 Chronic pulmonary edema; K75.9 Inflammatory liver disease, unspecified; K76.0 Fatty (change of) liver, not elsewhere classified; N28.9 Disorder of kidney and ureter, unspecified; Z79.82 Long term (current) use of aspirin; Z79.899 Other long term (current) drug therapy; Z82.49 Family history of ischemic heart disease and other diseases of the circulatory system; Z87.891 Personal history of nicotine dependence; Z90.49 Acquired absence of other specified parts of digestive tract; Z91.018 Allergy to other foods; R40.2412 Glasgow coma scale score 13-15, at arrival to emergency department; R53.81 Other malaise; R79.89 Other specified abnormal findings of blood chemistry; M17.9 Osteoarthritis of knee, unspecified; M54.9 Dorsalgia, unspecified; M25.569 Pain in unspecified knee; I51.89 Other ill-defined heart diseases; N17.9 Acute kidney failure, unspecified; R00.0 Tachycardia, unspecified
CPT/HCPCS: 36415; 71010; 76700; 80053; 80061; 80074; 81001; 82550; 82803; 83036; 83615; 83735; 84100; 84145; 84443; 84484; 85025; 85027; 85610; 85730; 87040; 87086; 87804; 93005; 93017; 93306; 96365; 96367; 96375; 96376; 99285; G0378; J0456; J0696; J3475; J7030; J7040

== ENCOUNTER 2016-11-07 11:00 | Emergency (ER) | payer MEDICARE, OTHER ==
[2016-11-07 11:01] VITALS: BMI 25.3
[2016-11-07 11:11] VITALS: TEMP 99.2
[2016-11-07] MEDS ORDERED: DiphenhydrAMINE 50 mg/ml Inj IVP STA (11:25)
--- NOTE | 2016-11-07 11:27 | ED PDOC ---
Arrival/HPI - General Chief Complaint: Allergic Reaction Time Seen by Provider: 11/07/16 11:17 Historian: Patient - History of Present Illness Narrative History of Present Illness (Text): 11/07/16 11:18 A 61 year old female, whose past medical history includes hypertension, high cholesterol, gout, and asthma, presents to the emergency department complaining of an allergic reaction that began last night. Patient reports yesterday for dinner she had Popeyes chicken, which she usually does but also had a Chewy yogurt bar. She states afterwards she went to shower and she used her body wash on her face because she ran out of her soap. Patient says before going to bed she felt a bump on the left side of her face but went to sleep without difficulty. This morning upon waking up she noticed swelling to her face and lips. Patient denies any shortness of breath, rash, feeling of throat constricting, or any other complaints at this time. PMD: Dr. Guerra Time/Duration: Other (8-16 hours) Symptom Onset: Gradual Symptom Course: Worsening Quality: Other Activities at Onset: Rest Context: Home Past Medical History - Provider Review Nursing Documentation Reviewed: Yes - Infectious Disease Hx of Infectious Diseases: None - Tetanus Immunization Tetanus Immunization: Unknown - Past Medical History Past Medical History: No Previous - Cardiac Hx Cardiac Disorders: Yes Hx Cardiac Arrhythmia: Yes Hx Heart Murmur: Yes Hx Hypertension: Yes - Pulmonary Hx Respiratory Disorders: Yes Hx Asthma: Yes Hx Chronic Obstructive Pulmonary Disease (COPD): Yes - Neurological Hx Neurological Disorder: No Hx Paralysis: No - HEENT Hx HEENT Disorder: No Hx Sinusitis: Yes - Renal Hx Renal Disorder: No - Endocrine/Metabolic Hx Endocrine Disorders: No - Hematological/Oncological Hx Blood Disorders: Yes Hx Blood Transfusions: Yes - Integumentary Hx Dermatological Disorder: No Hx Cellulitis: No - Musculoskeletal/Rheumatological Hx Musculoskeletal Disorders: Yes Hx Falls: Yes - Gastrointestinal Hx Gastrointestinal Disorders: No Hx Crohn's Disease: No Hx Diverticulitis: No Hx Gastroesophageal Reflux: No Hx Liver Failure: No - Genitourinary/Gynecological Hx Genitourinary Disorders: No - Psychiatric Hx Psychophysiologic Disorder: No Hx Emotional Abuse: No Hx Physical Abuse: No Hx Substance Use: No - Surgical History Hx Cardiac Catheterization: Yes Hx Cholecystectomy: Yes Hx Orthopedic Surgery: Yes - Anesthesia Hx Anesthesia Reactions: No Hx Malignant Hyperthermia: No - Suicidal Assessment Feels Threatened In Home Enviroment: No Family/Social History - Physician Review Nursing Documentation Reviewed: Yes Family/Social History: Unknown Family HX Smoking Status: Former Smoker Hx Alcohol Use: No Amount per day: 6 Hx Substance Use: No Hx Substance Use Treatment: No Allergies/Home Meds Allergies/Adverse Reactions: Allergies ALTOIDS Allergy (Intermediate, Uncoded 11/07/16 11:03) SWELLING FACE/LIPS UNKNOWN FOOD Allergy (Intermediate, Uncoded 11/07/16 11:03) SWELLING FACE/LIPS SEEN IN ED 03/07/16 Home Medications: Home Meds Medication Instructions Recorded Confirmed Fluticasone/Salmeterol [Advair 1 puff IH BID PRN 01/16/13 11/07/16 250-50 Diskus] Metoprolol Tartrate [Lopressor] 25 mg PO BID 01/16/13 11/07/16 Tiotropium [Spiriva] 18 mcg IH DAILY PRN 01/16/13 06/10/16 Furosemide 40 mg PO QAM 03/08/16 11/07/16 traMADol [Ultram] 50 mg PO TID PRN 05/29/16 11/07/16 Review of Systems - Physician Review All systems were reviewed & negative as marked: Yes - Review of Systems Constitutional: Other (facial swelling) ENT: Other (lip swelling; no throat closing sensation) Respiratory: absent: SOB Skin: absent: Rash Physical Exam Vital Signs Reviewed: Yes Vital Signs Temp Pulse Resp BP Pulse Ox 11/07/16 14:17 97 H 18 106/75 95 11/07/16 11:06 99.2 F 112 H 17 102/71 97 Temperature: Afebrile Blood Pressure: Normal Pulse: Tachycardic Respiratory Rate: Normal Appearance: Positive for: Well-Appearing, Non-Toxic, Comfortable Pain Distress: None Mental Status: Positive for: Alert and Oriented X 3 - Systems Exam Head: Present: Atraumatic, Normocephalic, Swelling Pupils: Present: PERRL Extroacular Muscles: Present: EOMI Conjunctiva: Present: Normal Mouth: Present: Moist Mucous Membranes. No: Normal Lips (swelling) Pharnyx: Present: Normal. No: ERYTHEMA, EXUDATE, TONSILS ENLARGED Neck: Present: Normal Range of Motion Respiratory/Chest: Present: Clear to Auscultation, Good Air Exchange. No: Respiratory Distress, Accessory Muscle Use Cardiovascular: Present: Normal S1, S2, Tachycardic. No: Murmurs Abdomen: Present: Normal Bowel Sounds. No: Tenderness, Distention, Peritoneal Signs Upper Extremity: Present: Normal Inspection. No: Cyanosis, Edema Lower Extremity: Present: Normal Inspection. No: Edema Neurological: Present: GCS=15, CN II-XII Intact, Speech Normal Skin: Present: Warm, Dry, Normal Color. No: Rashes Psychiatric: Present: Alert, Oriented x 3, Normal Insight, Normal Concentration Medical Decision Making ED Course and Treatment: 11/07/16 11:18 Impression: A 61 year old female with swelling to the face and lips. Differential Diagnosis included but are not limited to: Allergic reaction Plan: -- Solu-Medrol and Benadryl -- Reassess and disposition Prior Visits: Notes and results from previous visits were reviewed. The patient last presented to the emergency department on 10/25/16 for evaluation of generalized weakness. Progress Notes: 11/07/16 13:52 On reevaluation the patient feels better and is in no acute distress. Patient oxygen saturation is 100. She is sitting up eating food without difficulty. I have discussed the results and plan with the patient, who expresses understanding. Patient given the opportunity to ask question, all questions were answered and there is agreement with the plan to discharge the patient home. Patient is stable for discharge. Patient was instructed to follow up with physician/clinic in 1-2 days or return if symptoms persist/worsen or new concerning symptoms arise. - Medication Orders Current Medication Orders: Discontinued Medications Dexamethasone (Decadron Inj) 10 mg IM STAT STA Stop: 11/07/16 11:59 Last Admin: 11/07/16 12:11 Dose: 10 mg Diphenhydramine HCl (Benadryl) 25 mg IVP STAT STA Stop: 11/07/16 11:26 Diphenhydramine HCl (Benadryl) 25 mg PO STAT STA Stop: 11/07/16 11:59 Last Admin: 11/07/16 12:11 Dose: 25 mg Methylprednisolone (Solu-Medrol) 125 mg IVP STAT STA Stop: 11/07/16 11:25 - Scribe Statement The provider has reviewed the documentation as recorded by the Robert Mix Provider Scribe Attestation: All medical record entries made by the Scribe were at my direction and personally dictated by me. I have reviewed the chart and agree that the record accurately reflects my personal performance of the history, physical exam, medical decision making, and the department course for this patient. I have also personally directed, reviewed, and agree with the discharge instructions and disposition. Disposition/Present on Arrival - Present on Arrival Any Indicators Present on Arrival: No History of DVT/PE: No History of Uncontrolled Diabetes: No Urinary Catheter: No History of Decub. Ulcer: No History Surgical Site Infection Following: None - Disposition Have Diagnosis and Disposition been Completed?: Yes Diagnosis: Allergic reaction Disposition: HOME/ ROUTINE Disposition Time: 13:52 Patient Problems: Current Active Problems Problem Status Onset Allergic reaction Acute Condition: IMPROVED Discharge Instructions (ExitCare): General Allergic Reaction (ED) Additional Instructions: Thank you for letting us take care of you today. Your provider was Dr. Chew. You were treated for an allergic reaction. The emergency medical care you received today was directed at your acute symptoms. If you were prescribed any medication, please fill it and take as directed. It may take several days for your symptoms to resolve. Return to the Emergency Department if your symptoms worsen, do not improve, or if you have any other problems. Please contact your doctor or call one of the physicians/clinics you have been referred to that are listed on the Patient Visit Information form that is included in your discharge packet. Bring any paperwork you were given at discharge with you along with any medications you are taking to your follow up visit. Our treatment cannot replace ongoing medical care by a primary care provider (PCP) outside of the emergency department. Thank you for allowing the [facility] team to be part of your care today. Follow up with your doctor in 2-3 days to be re-evaluation. DO NOT EAT THE GRANOLA BAR THAT YOU MAY BE ALLERGIC TO! Prescriptions: predniSONE [Prednisone] 40 mg PO DAILY #10 tab Referrals: Baltazar Guerra MD [Primary Care Provider] - Follow up with primary
[2016-11-07 14:17] VITALS: BP 106/75; PULSE 97; RESP 18; O2SAT 95
== END 2016-11-07 14:43 | disposition home or self-care (01) ==
LOC: ED 11:00
DX: T78.40XA Allergy, unspecified, initial encounter (principal); Z87.891 Personal history of nicotine dependence; I10 Essential (primary) hypertension
CPT/HCPCS: 96372; 99283; J1100

== ENCOUNTER 2016-12-21 17:56 | Inpatient (IN) | payer MEDICARE, OTHER ==
[2016-12-21 17:56] VITALS: BMI 25.3
--- NOTE | 2016-12-21 18:31 | ED PDOC ---
Arrival/HPI - General Chief Complaint: Respiratory Distress Time Seen by Provider: 12/21/16 18:29 Historian: Patient - History of Present Illness Narrative History of Present Illness (Text): 12/21/16 18:30 Patient is a 61 year old female whose past medical history includes atrial fibrillation and "asthma since I was a kid", who presents to the emergency department with shortness of breath for the past 2-3 days. She states it has been constant. She also reports intermittent chest pain. Denies leg pain or swelling. Denies pleuritic pain. Denies lightheadedness or dizziness. Nonsmoker but states family members smoked heavily in past. Currently no chest discomfort. Time/Duration: < week Symptom Onset: Gradual Symptom Course: Unchanged Modifying Factors (Text): None Past Medical History - Provider Review Nursing Documentation Reviewed: Yes - Infectious Disease Hx of Infectious Diseases: None - Tetanus Immunization Tetanus Immunization: Unknown - Past Medical History Past Medical History: No Previous - Cardiac Hx Cardiac Disorders: Yes Hx Cardiac Arrhythmia: Yes Hx Heart Murmur: Yes Hx Hypertension: Yes - Pulmonary Hx Respiratory Disorders: Yes Hx Asthma: Yes Hx Chronic Obstructive Pulmonary Disease (COPD): Yes - Neurological Hx Neurological Disorder: No - HEENT Hx HEENT Disorder: No - Renal Hx Renal Disorder: No - Endocrine/Metabolic Hx Endocrine Disorders: No - Hematological/Oncological Hx Blood Disorders: Yes Hx Blood Transfusions: Yes - Integumentary Hx Dermatological Disorder: No - Musculoskeletal/Rheumatological Hx Musculoskeletal Disorders: Yes Hx Falls: Yes - Gastrointestinal Hx Gastrointestinal Disorders: No - Genitourinary/Gynecological Hx Genitourinary Disorders: No - Psychiatric Hx Psychophysiologic Disorder: No Hx Substance Use: No - Surgical History Hx Cardiac Catheterization: Yes Hx Cholecystectomy: Yes Hx Orthopedic Surgery: Yes - Anesthesia Hx Anesthesia Reactions: No Hx Malignant Hyperthermia: No - Suicidal Assessment Feels Threatened In Home Enviroment: No Family/Social History - Physician Review Nursing Documentation Reviewed: Yes Family/Social History: Unknown Family HX Smoking Status: Former Smoker Hx Alcohol Use: No Amount per day: 6 Hx Substance Use: No Hx Substance Use Treatment: No Allergies/Home Meds Allergies/Adverse Reactions: Allergies ALTOIDS Allergy (Intermediate, Uncoded 11/07/16 11:03) SWELLING FACE/LIPS UNKNOWN FOOD Allergy (Intermediate, Uncoded 11/07/16 11:03) SWELLING FACE/LIPS SEEN IN ED 03/07/16 Home Medications: Home Meds Medication Instructions Recorded Confirmed Unobtainable 12/21/16 12/21/16 Review of Systems - Review of Systems Eyes: absent: Vision Changes ENT: absent: Hearing Changes Respiratory: SOB Cardiovascular: Chest Pain, Palpitations, AVELAR. absent: Edema, Calf Pain Gastrointestinal: absent: Abdominal Pain, Nausea, Vomiting Genitourinary Female: absent: Dysuria Musculoskeletal: absent: Back Pain Skin: absent: Rash Neurological: absent: Dizziness Endocrine: absent: Diaphoresis Psychiatric: absent: Depression Physical Exam - Physical Exam Narrative Physical Exam (Text): Head: Atraumatic. Normocephalic. Eyes: PERRL. EOMI. Conjunctivae are not pale. ENT: Mucous membranes are moist and intact. Oropharynx is clear and symmetric. Neck: Supple. Full ROM. No JVD. No lymphadenopathy. No palpable thyromegaly. Cardiovascular: Tachycardic, systolic murmur noted. Pulmonary/Chest: No evidence of respiratory distress. Mild expiratory wheeze, no rales or rhonchi. Abdominal: Soft and non-distended. There is no tenderness. No rebound, guarding, or rigidity. No organomegaly. Good bowel sounds. Back: No CVA tenderness. Extremities: No edema. No cyanosis. No clubbing. Full range of motion in all extremities. No calf tenderness. Soft tissue swelling to lateral aspect of left neck soft and nontender, no fluctuance. Skin: Skin is warm and dry. No petechiae. No purpura. No vesicular rash. Neurological: Alert, awake, and oriented to person, place, time, and situation. Normal speech. Motor and sensory exam intact. Psychiatric: Good eye contact. Normal interaction, affect, and behavior. Vital Signs Reviewed: Yes Vital Signs Temp Pulse Resp BP Pulse Ox 12/22/16 01:00 126 H 16 151/96 H 100 12/21/16 23:21 124 H 16 124/84 100 12/21/16 20:10 125 H 136/59 L 12/21/16 20:03 136 H 136/59 L 12/21/16 19:08 122 H 155/92 H 12/21/16 18:14 20 12/21/16 18:13 98.0 F 103 H 20 152/105 H 97 Temperature: Afebrile Blood Pressure: Normal Pulse: Tachycardic Respiratory Rate: Normal Appearance: Positive for: Well-Appearing, Non-Toxic Pain Distress: None Mental Status: Positive for: Alert and Oriented X 3 Medical Decision Making ED Course and Treatment: Differential Diagnosis included but are not limited to: Atrial fibrillation with RVR vs congestive heart failure vs. copd Patient is noted to be in narrow complex tachcardia. EKG suggestive of sinus tachycardia with PACs, although on monitor patient is noted to have intermittent irregularly irregular rhythm consistent with atrial fibrillation. Suspicion that patient alternates from sinus tachycardia with PACs and atrial fibrillation. She reports prior history of atrial fibrillation. Denies smoking. Denies ocp. Denies calf pain or swelling. Denies prolonged immobilization. Denies headache or trauma or recent active bleeding. She denies chest pain or pleuritic chest discomfort. Cardizem bolus and drip given with improvement in heart rate. On exam, patient feels less sob. Heparin ordered for tachyarrhythmia. Case d/w Dr Guerra, will admit to telemetry and consult Dr. Beebe. Risks/side effects of medications reviewed with patient. 12/21/16 23:16 12/21/16 23:20 LFTs elevated, but no abdominal pain or ruq pain. Patient also noted to be hyponatremic, cannot exclude lung disease or malignancy. Currently no obvious infiltrate noted on cxr, if symptoms persist recommend chest ct. 12/21/16 23:57 VQ scan ordered as persistent tachycardia. I endorsed VQ scan results to Dr. Louie, house doctor. Patient with no hypoxia, no pleuritic pain at this time. Prior vq scan from 2014 reviewed low probability. - Critical Care Critical Care Minutes: 30 minutes - Lab Interpretations Lab Results: 12/21/16 19:00 12/21/16 19:00 Lab Results 12/21/16 19:00: Sodium 129 L, Potassium 4.5, Chloride 96 L, Carbon Dioxide 21, Anion Gap 17, BUN 24 H, Creatinine 1.2, Est GFR ( Amer) 55, Est GFR (Non- Af Amer) 46, Random Glucose 107, Calcium 9.5, Total Bilirubin 0.7, AST 82 H, ALT 68 H, Alkaline Phosphatase 180 H, Lactate Dehydrogenase 602, Total Creatine Kinase 57, Troponin I 0.02 D, NT-Pro-B Natriuret Pep 115, Total Protein 7.7, Albumin 4.2, Globulin 3.5, Albumin/Globulin Ratio 1.2 12/21/16 19:00: PT 11.0, INR 1.02, APTT 24.9 12/21/16 19:00: WBC 8.5 D, RBC 4.00, Hgb 12.6, Hct 35.8 L, MCV 89.5, MCH 31.5, MCHC 35.2, RDW 13.6, Plt Count 315, MPV 9.6, Gran % 68.4 H, Lymph % (Auto) 17.7 L, [place] % (Auto) 13.6 H, Eos % (Auto) 0.1 L, Baso % (Auto) 0.2, Gran # 5.81, Lymph # 1.5, [place] # 1.2 H, Eos # 0.0, Baso # 0.02 - RAD Interpretation Radiology Orders: 12/21/16 18:35 CHEST PORTABLE [RAD] Stat Adjunct Faculty For Medical Terminology: Radiologist - EKG Interpretation Interpreted by ED Physician: Yes Type: 12 lead EKG - Medication Orders Current Medication Orders: Heparin Sodium/Sodium Chloride (Heparin 12162 Units/250ml 1/2 Normal Saline) 25 ,000 units in 250 mls @ 13.227 mls/hr IV .[id number] PRN; Protocol; 18 UNITS/KG/HR PRN Reason: ADJUST RATE PER PROTOCOL Last Admin: 12/22/16 10:56 Dose: 13.88 units/kg/hr, 10.2 mls/hr diltiaZEM IVPB 100mg in NS (Cardizem 100mg In Ns) 100 mls @ 10 mls/hr IV .Q10H PRN; Protocol; 10 MG/HR PRN Reason: TITRATE PER MD ORDER Last Admin: 12/22/16 10:50 Dose: 10 mg/hr, 10 mls/hr Levalbuterol HCl (Xopenex) 1.25 mg IH QIDRESP PRN PRN Reason: Shortness of Breath Metoprolol Tartrate (Lopressor) 25 mg PO BRKDIN [facility] Last Admin: 12/22/16 08:16 Dose: 25 mg Discontinued Medications Diltiazem HCl (Cardizem) 15 mg IVP ONCE ONE Stop: 12/21/16 18:37 Last Admin: 12/21/16 19:08 Dose: 15 mg Diltiazem HCl (Cardizem) 20 mg IVP ONCE ONE Stop: 12/21/16 19:53 Last Admin: 12/21/16 20:10 Dose: 20 mg Diltiazem HCl (Cardizem) 10 mg IVP STAT STA Stop: 12/22/16 07:00 Last Admin: 12/22/16 07:55 Dose: 10 mg Heparin Sodium (Porcine) (Heparin) 4,000 units IV ONCE ONE PRN Reason: Protocol Stop: 12/21/16 21:22 Last Admin: 12/21/16 22:57 Dose: 4,000 units diltiaZEM IVPB 100mg in NS (Cardizem 100mg In Ns) 100 mls @ 5 mls/hr IV .Q20H PRN; Protocol; 5 MG/HR PRN Reason: PER MD Last Admin: 12/21/16 20:03 Dose: 5 mls/hr - Scribe Statement The provider has reviewed the documentation as recorded by the Robert Carmona Provider Scribe Attestation: All medical record entries made by the Robert were at my direction and personally dictated by me. I have reviewed the chart and agree that the record accurately reflects my personal performance of the history, physical exam, medical decision making, and the department course for this patient. I have also personally directed, reviewed, and agree with the discharge instructions and disposition. Disposition/Present on Arrival - Present on Arrival Any Indicators Present on Arrival: No History of DVT/PE: No History of Uncontrolled Diabetes: No Urinary Catheter: No History of Decub. Ulcer: No History Surgical Site Infection Following: None - Disposition Have Diagnosis and Disposition been Completed?: Yes Diagnosis: Atrial fibrillation, Tachycardia, Elevated liver enzymes, Abnormal chest xray Disposition: HOSPITALIZED Disposition Time: 18:00 Patient Plan: Admission, Telemetry Patient Problems: Current Active Problems Problem Status Onset Atrial fibrillation Acute Tachycardia Acute Condition: SERIOUS
[2016-12-21] MEDS ORDERED: diltiaZEM IVPB 100mg in NS 100 ML IV PRN (18:36)
[2016-12-21 19:12] LABS: ADD MANUAL DIFF? NO
[2016-12-21 19:26] LABS: ALB/GLOB RATIO 1.2 (1.1-1.8); BILIRUBIN,TOTAL 0.7 mg/dL (0.2-1.3); CALCIUM 9.5 mg/dL (8.4-10.5); POTASSIUM 4.5 mmol/L (3.6-5.0); TOTAL PROTEIN 7.7 g/dL (5.8-8.3)
[2016-12-21 19:38] LABS: TROPONIN I 0.02 ng/mL
[2016-12-21 19:45] LABS: BASO # 0.02 K/mm3 (0.0-2.0); BASO % 0.2 % (0.0-3.0); EOS % 0.1 % (1.5-5.0); GRAN # 5.81 (1.4-6.5); GRAN % 68.4 % (50.0-68.0); HEMATOCRIT 35.8 % (36.0-48.0); LYMPH # 1.5 (1.2-3.4); LYMPH % 17.7 % (22.0-35.0); MEAN CELL VOLUME 89.5 fL (80.0-105.0); MEAN CORPUSCULAR HEMOGLOBIN 31.5 pg (25.0-35.0); MEAN CORPUSCULAR HGB CONC 35.2 g/dl (31.0-37.0); MEAN PLATELET VOLUME 9.6 fl (7.0-11.0); MONO # 1.2 (0.1-0.6); MONO % 13.6 % (1.0-6.0); PLATELET COUNT 315 10^3/uL (120.0-450.0); RED CELL DISTRIBUTION WIDTH 13.6 % (11.5-14.5); WHITE BLOOD COUNT 8.5 10^3/ul (4.5-11.0)
[2016-12-21 20:14] LABS: INR 1.02 (0.93-1.08); PARTIAL THROMBOPLASTIN TIME 24.9 Seconds (23.7-30.8)
--- NOTE | 2016-12-21 20:43 | RAD ---
HISTORY: sob COMPARISON: Chest x-ray performed 10/25/16 TECHNIQUE: Chest, one view. FINDINGS: LUNGS: Hyperinflation may be seen in the setting of COPD. No focal consolidation. Please note that chest x-ray has limited sensitivity for the detection of pulmonary masses. PLEURA: No significant pleural effusion identified. No definite pneumothorax . CARDIOVASCULAR: Borderline cardiomegaly. OSSEOUS STRUCTURES: Degenerative changes. VISUALIZED UPPER ABDOMEN: Unremarkable. OTHER FINDINGS: None. IMPRESSION: Findings consistent with COPD. Correlate clinically.
[2016-12-21] MEDS: Heparin25000 units/250ml 1/2NS 25,000 UNITS/250 ML BAG IV PRN (22:58)
[2016-12-21] MEDS ORDERED: Levalbuterol 1.25 MG/3 ML Inhal Soln UD IH PRN (22:59)
[2016-12-22 01:53] LABS: URINE BILIRUBIN NEGATIVE (NEGATIVE); URINE BLOOD NEGATIVE (NEGATIVE); URINE GLUCOSE (UA) NEGATIVE (NEGATIVE); URINE KETONE NEGATIVE (NEGATIVE); URINE LEUKOCYTE ESTERASE NEGATIVE Leu/uL (NEGATIVE); URINE PROTEIN TRACE mg/dL (<30 mg/dL); URINE UROBILINOGEN 0.2 E.U./dL (<1 E.U./dL)
[2016-12-22 02:10] LABS: URINE COLOR YELLOW (YELLOW)
[2016-12-22 02:11] LABS: URINE APPEARANCE CLEAR (CLEAR)
[2016-12-22 02:22] LABS: URINE BACTERIA MANY (NEG); URINE RBC 0 - 2 /hpf (0-2); URINE WBC 0 - 2 /hpf (0-6)
[2016-12-22 07:49] LABS: ADD MANUAL DIFF? NO
[2016-12-22 08:01] LABS: BASO # 0.02 K/mm3 (0.0-2.0); BASO % 0.3 % (0.0-3.0); EOS % 0.4 % (1.5-5.0); GRAN # 4.53 (1.4-6.5); GRAN % 63.2 % (50.0-68.0); HEMATOCRIT 32.4 % (36.0-48.0); LYMPH # 1.4 (1.2-3.4); LYMPH % 19.3 % (22.0-35.0); MEAN CORPUSCULAR HEMOGLOBIN 30.8 pg (25.0-35.0); MEAN CORPUSCULAR HGB CONC 34.3 g/dl (31.0-37.0); MEAN PLATELET VOLUME 9.6 fl (7.0-11.0); MONO # 1.2 (0.1-0.6); MONO % 16.8 % (1.0-6.0); PLATELET COUNT 279 10^3/uL (120.0-450.0); RED CELL DISTRIBUTION WIDTH 13.5 % (11.5-14.5); WHITE BLOOD COUNT 7.2 10^3/ul (4.5-11.0)
[2016-12-22 08:11] LABS: ALB/GLOB RATIO 1.2 (1.1-1.8); BILIRUBIN,TOTAL 1.1 mg/dL (0.2-1.3); CALCIUM 9.1 mg/dL (8.4-10.5); MAGNESIUM 1.6 mg/dL (1.7-2.2); POTASSIUM 3.8 mmol/L (3.6-5.0); TOTAL PROTEIN 6.7 g/dL (5.8-8.3)
[2016-12-22 08:18] LABS: INR 1.06 (0.93-1.08)
[2016-12-22 08:32] LABS: PARTIAL THROMBOPLASTIN TIME 178.8 Seconds (23.7-30.8)
--- NOTE | 2016-12-22 09:54 | NM ---
COMPARISON: Chest x-ray performed 12/21/16 TECHNIQUE: 30.0 mCi technetium 99-m DTPA was inhaled. 2.0 mCI technetium 99-m MAA administered intravenously. FINDINGS: VENTILATION COMPONENT: Ventilation images demonstrate heterogeneous radiopharmaceutical uptake. Hilar clumping of radiopharmaceutical may represent underlying COPD. Tracheal deposition of radiotracer consistent with swallowed radiotracer. PERFUSION COMPONENT: No significant mismatched perfusion defects are appreciated. IMPRESSION: Lowprobability ventilation perfusion scan for pulmonary embolism. Additional findings as above. Preliminary impression was provided by virtual radiologic.
[2016-12-22] MEDS: diltiaZEM IVPB 100mg in NS 100 ML IV PRN ×2 (10:50→20:33)
[2016-12-22] MEDS: Heparin25000 units/250ml 1/2NS 25,000 UNITS/250 ML BAG IV PRN ×3 (10:56→20:32)
--- NOTE | 2016-12-22 15:40 | CARD ---
APPROVED REPORT EKG Measurement Heart [id number] ND 142P29 [id number] <Conclusion> Sinus tachycardia with premature supraventricular complexes Left axis deviation Minimal voltage criteria for LVH, may be normal variant Nonspecific ST abnormality Abnormal ECG
--- NOTE | 2016-12-22 15:40 | CARD ---
APPROVED REPORT EKG Measurement Heart [id number] CO [id number] [id number] <Conclusion> Sinus tachycardia and premature ventricular complexes or fusion complexes Left axis deviation Minimal voltage criteria for LVH, may be normal variant Nonspecific ST abnormality Abnormal ECG
--- NOTE | 2016-12-22 19:07 | CON ---
DATE: 12/22/2016 REASON FOR CONSULTATION: Rapid atrial fibrillation. HISTORY OF PRESENT ILLNESS: The patient is a 61-year-old female who has a history of bronchial asthm a and severe significant mitral insufficiency related to anterior mitral leaflet pathology. The indra ent also has right ventricular systolic dysfunction. According to the patient, she was offered heart mitral valve surgery in the past. The patient presented because of palpitations and dizziness, was found to be in rapid atrial fibrillation and was started on Cardizem infusion. The patient is curren tly on a rate of 10 mg per hour. The patient denies any syncope. The patient is unaware of any miah nary artery disease. Myoview stress test was attempted in October of this year, but was not completed because the patient was claustrophobic. The patient denies any retrosternal chest pain. MEDICATIONS: Cardizem infusion at 10 mg per hour, intravenous heparin infusion in a therapeutic anne men, Lopressor 25 mg once a day, Xopenex inhaler p.r.n. REVIEW OF SYSTEMS: No nausea or vomiting. No fever or chills. PHYSICAL EXAMINATION: GENERAL: The patient is a middle-aged female who does not appear to be in any distress. VITAL SIGNS: Blood pressure 111/69, heart rate 70, temperature 98.5, respirations 16. HEENT: Normocephalic. NECK: No JVD. CHEST: Bilateral rhonchi. HEART: S1, S2 irregular. ABDOMEN: Soft. EXTREMITIES: No edema. LABORATORY DATA: Hemoglobin and hematocrit 11.1 and 32.4, white count and platelet count are within normal limits. SMA-7: Sodium 128, potassium 3.8, chloride 99, CO2 of 20, glucose 136, BUN 22, creat inine 1.2. ALT and AST are 58 and 57 respectively, slight improvement compared to yesterday. Total cholesterol 217, HDL cholesterol is 98, both are elevated. TSH level is within normal limits. The m ost recent PTT is 178 seconds which is significantly high on heparin therapy. EKG revealed sinus tac hycardia with PVCs, heart rate 113, minimal voltage criteria for LVH. ASSESSMENT: 1. New onset atrial fibrillation. 2. Severe mitral insufficiency. 3. Cor pulmonale with mildly depressed right ventricular systolic function and mild pulmonary hypert ension. RECOMMENDATIONS: Continue current IV Cardizem and IV heparin. Continue Lopressor 25 mg twice a day and Xopenex inhaler 1.25 mg p.r.n., ventilation perfusion scan was low probability for PE. My review of the chest x-ray revealed right lower lobe infiltrate with the possibility of pneumonia. Yovani Michael MD cc: [id number] TT: 12/22/2016 19:06:21 Confirmation # [id number] Dictation # [id number]
--- NOTE | 2016-12-22 20:46 | CON ---
DATE: 12/22/2016 HISTORY OF PRESENT ILLNESS: This patient was seen and evaluated earlier. This is a 61-year-old indra ent with a history of paroxysmal atrial fibrillation, presented to the Emergency Room with shortness of breath. The patient was found to have AFib with rapid ventricular response. The rate is controll ed with Cardizem drip. The patient has also been started on heparin. The patient has a history of a nemia, noticed to have a slight drop in hemoglobin from 12.6-11.1. GI consultation was requested bec ause of the drop in hemoglobin. The patient also found to have elevated liver enzymes on admission. Denies any abdominal pain. The patient was seen by our service in October. She was admitted at that time with chest pain. The patient was evaluated by soft sugar operator head. The patient noticed to have severe mitral regurgitation due to papillary muscle dysfunction. The patient also has a history of ETOH us e. Recommended at that time to follow up. LFTs were improving. The patient was advised to follow u p as an outpatient evaluation for an endoscopy. The patient was noncompliant, did not follow up. Th e patient still states that she has been socially drinking alcohol. OTHER PAST MEDICAL HISTORY: Status post cholecystectomy. The patient had a colonoscopy about 5 year s ago at [facility] and she was told there were no polyps. The patient had bunion surgery and carpal tunn el surgery in the past. SOCIAL HISTORY: Positive as above, history of ETOH use socially. Denies smoking. FAMILY HISTORY: Positive for coronary artery disease. Brother at the age of 39. ALLERGIES: To some food. REVIEW OF SYSTEMS: Positive as above. Other systems reviewed and negative. PHYSICAL EXAMINATION: GENERAL: The patient is lying on the bed, not in acute distress. VITAL SIGNS: Temperature is 98.4, blood pressure 123/85, respirations are 16, pulse 86. HEENT: Atraumatic, anicteric. NECK: Supple. HEART: S1, S2. There is a systolic murmur present. EXTREMITIES: No cyanosis. No clubbing. NEUROLOGIC: Alert, oriented. Moves all the extremities. LABORATORY DATA: Hemoglobin 11.1, hematocrit 32.4, WBC 7.2, platelets 279. Chemistries: Total bili barber 1.1, AST 58, ALT 57, alkaline phosphatase 142. IMPRESSION: This is a 61-year-old patient admitted with shortness of breath, found to have atrial fib rillation with rapid ventricular response. The patient is on Cardizem drip and heparin. The patient noticed to have a drop in hemoglobin from 12.6-11.1. PROBLEMS: 1. Anemia, drop in blood count. Her baseline in October was around 11.7. The patient denies any obvi ous bleeding per rectum or melena now. The differential diagnosis should include peptic ulcer diseas e, angiodysplasia, include gastrointestinal loss of blood. Would recommend stool for occult blood an d also close followup of the hemoglobin and hematocrit. The patient would benefit from a gastrointes tinal workup if any valvular surgery is considered prior to that, if the cardiac condition is optimiz ed. 2. His abnormal liver function tests are improving. Status post cholecystectomy. The differential diagnosis should include hepatic congestion. The patient also has increased alcohol intake and binge drinking, but she has now cut down. This could also partly contribute. 3. History of asthma. Thank you very much for allowing us to participate in the care of the patient. We will continue to c losely follow up and suggest further management based on the clinical course. Sun Ramirez MD cc: [id number] TT: 12/22/2016 20:45:38 Confirmation # [id number] Dictation # [id number] larry
[2016-12-23] MEDS: MethylPREDNISolone 40 mg Vial IV SCH ×5 (01:14→23:15)
[2016-12-23] MEDS: Budesonide 0.5 mg/2 ml Inhal Susp UD IH SCH ×3 (02:20→19:24)
[2016-12-23] MEDS: diltiaZEM IVPB 100mg in NS 100 ML IV PRN (06:30)
[2016-12-23 06:41] LABS: BLOOD UREA NITROGEN 17 mg/dL (7-21); CALCIUM 9.3 mg/dL (8.4-10.5); CARBON DIOXIDE 22 mmol/L (21-33); CHLORIDE 100 mmol/L (98-107); GFR AFRICAN-AMERICAN > 60; GLUCOSE,RANDOM 166 mg/dL (70-110); POTASSIUM 4.5 mmol/L (3.6-5.0); SODIUM 130 mmol/L (132-148)
[2016-12-23] MEDS ORDERED: Arformoterol 15 mcg/2 ml Inh Sol IH SCH (08:00)
[2016-12-23] MEDS: Arformoterol 15 mcg/2 ml Inh Sol IH SCH ×2 (08:02→19:24)
[2016-12-23] MEDS: cefTRIAXone 1 gm 1 GM/100 ML BAG IVPB SCH (09:38)
--- NOTE | 2016-12-23 14:15 | PN ---
DATE: 12/23/2016 SUBJECTIVE: The patient denies any palpitations, dizziness, or shortness of breath. OBJECTIVE VITAL SIGNS: Blood pressure 130/87, heart rate 83, temperature 98, respiration 18. The monitor reve als normal sinus rhythm. HEAD, EARS, EYES, NOSE, AND THROAT: Normocephalic. CHEST: Clear. HEART: S1 and S2 regular. EXTREMITIES: No edema. LABORATORIES: SMA-7: Sodium 130, potassium 4.5, chloride 100, CO2 of 22, glucose 166, BUN 17, creat inine 1.0. ASSESSMENT 1. Paroxysmal atrial fibrillation. 2. Improving hyponatremia. 3. Severe mitral insufficiency. 4. Cor pulmonale with mildly depressed right ventricular systolic function. 5. Mild pulmonary hypertension. RECOMMENDATIONS: Discontinue IV Cardizem. Discontinue IV heparin and switch to therapeutic subcutan eous Lovenox regimen. Continue IV Rocephin at 1 gram daily, Lopressor 25 mg twice a day. Start Card izem at 60 mg orally t.i.d. Yovani Michael MD cc: [id number] TT: 12/23/2016 14:14:28 Confirmation # [id number] Dictation # [id number] fn
[2016-12-23] MEDS: Enoxaparin 60 mg Syringe SC SCH (14:47)
--- NOTE | 2016-12-23 17:47 | PN ---
DATE: 12/23/2016 SUBJECTIVE: The patient is comfortable, tolerating the diet. No abdominal pain. Her breathing is a lso better. PHYSICAL EXAMINATION: VITAL SIGNS: Her temperature is 98, blood pressure 130/87, pulse 83, respirations 18. HEENT: Atraumatic, anicteric. NECK: Supple. HEART: S1, S2 heard. LUNGS: Bilateral air entry present. ABDOMEN: Soft. There is no tenderness. EXTREMITIES: No cyanosis, no clubbing, no edema. LABORATORY DATA: There are no recent labs today. Chemistry is essentially unremarkable except sodiu m is 130. IMPRESSION: This is a 61-year-old patient admitted with shortness of breath, found to have atrial fi brillation with rapid ventricular response. The patient was on Cardizem drip, which has been changed to p.o. and heparin drip also has been discontinued and changed to Lovenox. Her problems include: 1. Anemia, drop in blood count, on anticoagulation. Will need close followup of the hemoglobin and hematocrit. Would need a gastrointestinal workup if surgery is planned. 2. Mitral regurgitation, due to papillary dysfunction. 3. Abnormal liver function tests probably secondary to hepatic congestion. The patient also has his tory of ETOH use. RECOMMENDATIONS: Followup of the LFTs. Thank you very much for allowing us to participate in the care of the patient. Sun Ramirez MD cc: [id number] TT: 12/23/2016 17:46:00 Confirmation # [id number] Dictation # [id number] larry
--- NOTE | 2016-12-23 18:23 | PN ---
DATE: 12/23/2016 The patient was seen today. She was comfortable, in no distress. She felt better after IV steroids. She has no chest pain, breathing is much better and she feels better. PHYSICAL EXAMINATION: VITAL SIGNS: Temperature 98, heart rate 83, blood pressure 130/87, respirations . HEAD AND NECK: Normal. No JVD, no thyromegaly. CHEST: Clear, good entry. CARDIAC: First sound, second sound regular. ABDOMEN: Soft, nontender. EXTREMITIES: No edema. NEUROLOGIC: Normal. LABORATORY: Sodium 130, potassium 4.5, chloride 100, bicarbonate 22, BUN 17, creatinine 1, blood sug ar 166, calcium 9.3. CBC is 7.2, white count 7.2, hemoglobin 11.1, hematocrit 32.4, platelets 279. IMPRESSION: 1. Ventricular tachycardia, atrial fibrillation. Continue Cardizem infusion; switch to p.o. Cardize m per cardiology; she is a patient of Dr. Michael, and will continue Cardizem 60 mg 3 times a day a nd metoprolol 25 mg p.o. daily. Follow up clinically and will discuss further with the cardiology. 2. Acute chronic obstructive pulmonary disease exacerbation, mild. Continue IV steroids, continue i nhaled bronchodilators, continue Rocephin. Follow up clinically. 3. History of gouty arthritis - pseudogout also. Continue colchicine and allopurinol. 4. Hypercholesterolemia. The patient is getting Lipitor. PLAN: Continue current treatment. Continue Lovenox 60 mg q.12. Will follow up clinically. Baltazar Guerra MD cc: [phone] TT: 12/23/2016 18:22:55 Confirmation # [id number] Dictation # [id number] dn
[2016-12-24] MEDS: Enoxaparin 60 mg Syringe SC SCH ×2 (01:27→12:46)
[2016-12-24] MEDS: MethylPREDNISolone 40 mg Vial IV SCH ×2 (05:40→12:45)
[2016-12-24 06:10] VITALS: O2SAT 98
[2016-12-24] MEDS: Arformoterol 15 mcg/2 ml Inh Sol IH SCH (07:58)
[2016-12-24] MEDS: Budesonide 0.5 mg/2 ml Inhal Susp UD IH SCH (07:58)
--- NOTE | 2016-12-24 07:58 | HP ---
REASON FOR ADMISSION: Chest pain and palpitations. HISTORY OF PRESENT ILLNESS: The patient is a 61-year-old female with a history of mitral valvular di sease, insufficiency. She came into the hospital with palpitations, short of breath and feeling dizz y. The patient came to the ER for evaluation and found to have rapid atrial fibrillation. No syncop e or chest discomfort; maybe tightness, but no chest pain. She denied any associated symptoms like f ever. Maybe a mild cough she has; otherwise, stable. MEDICATIONS: She takes Cardizem-CD, she takes metoprolol 25, she takes allopurinol 100 p.o. daily, s he takes also aspirin 81 mg daily, she takes colchicine 0.6 mg once a day and she takes an inhaler, V entolin. ALLERGIES: SHE IS ALLERGIC TO ALTOIDS, FOOD AND NO DRUG ALLERGY. FAMILY HISTORY: Noncontributory. SOCIAL HISTORY: She lives by herself, nonsmoker, no children. She does drink alcohol occasionally. She might drink a little more recently. REVIEW OF SYSTEMS: Knee arthritis. She gets a cough, sometimes a wheeze, back pain, otherwise negat aaliyah. PAST MEDICAL HISTORY: Mitral valve disease, she has had palpitations in the past, osteoarthritis bot h knees, chronic back pain, overweight, hypertension. PHYSICAL EXAMINATION: VITAL SIGNS: When she came in on the , the patient had the following: Temperature 98.5, heart r ate 151 when she came in, blood pressure 118/84, respirations 18. HEAD AND NECK: Normal. No JVD, no thyromegaly. CHEST: Clear, a few rhonchi bilaterally. CARDIAC: First sound and second sounds are normal. ABDOMEN: Soft, obese, nontender. EXTREMITIES: No edema. NEUROLOGIC: Normal. LABORATORY DATA: On the 12/22: White count 8.5, hemoglobin 12.6, hematocrit 35.8, platelets 315. C hemistry noted for sodium 129, potassium 4.5, chloride 96, bicarbonate 21, BUN 24, creatinine 1.2, bl ood sugar 107. AST and ALT: Mild elevation, AST is 82, ALT 68, alkaline phosphatase 180. The patie nt's troponin 0.02. BNP is normal at 115. The patient's chest x-ray is no active pulmonary disease, just COPD, no pneumonia, no infiltrates. EKG: Atrial fibrillation . An electrocardiogram was done and was read by Dr. Michael, which shows left axis deviation, sinus tachycardia with prematur e supraventricular complexes. IMPRESSION AND PLAN: 1. Acute supraventricular tachycardia, probably atrial fibrillations. Will continue Cardizem infusi ons, IV heparin and a cardiology consult with Dr. Michael. 2. Chronic obstructive pulmonary disease, mild exacerbation. Will put the patient on IV steroids an d nebulizer treatment. Continue metoprolol, continue inhalers, continue steroids, continue heparin. The patient may benefit later on from Eliquis for chronic atrial fibrillations. We will address the echo findings and mitral valve disease; maybe she needs a mitral valve repair. Will discuss t hat with cardiology. Baltazar Guerra MD cc: 223 TT: 12/23/2016 18:40:01 tamar
[2016-12-24] MEDS: cefTRIAXone 1 gm 1 GM/100 ML BAG IVPB SCH (09:12)
[2016-12-24 09:21] LABS: HEMATOCRIT 31.8 % (36.0-48.0); MEAN CELL VOLUME 90.3 fL (80.0-105.0); MEAN CORPUSCULAR HEMOGLOBIN 30.7 pg (25.0-35.0); MEAN PLATELET VOLUME 9.6 fl (7.0-11.0); RED CELL DISTRIBUTION WIDTH 13.5 % (11.5-14.5); WHITE BLOOD COUNT 8.7 10^3/ul (4.5-11.0)
[2016-12-24 09:31] LABS: ALB/GLOB RATIO 1.2 (1.1-1.8); ALKALINE PHOSPHATASE 110 U/L (38-133); ALT/SGPT 47 U/L (7-56); AST/SGOT 34 U/L (15-39); BILIRUBIN,TOTAL 0.5 mg/dL (0.2-1.3); BLOOD UREA NITROGEN 17 mg/dL (7-21); CALCIUM 9.4 mg/dL (8.4-10.5); CARBON DIOXIDE 18 mmol/L (21-33); CHLORIDE 100 mmol/L (95-110); GFR AFRICAN-AMERICAN > 60; GLUCOSE,RANDOM 215 mg/dL (70-110); POTASSIUM 3.8 mmol/L (3.6-5.0); SODIUM 128 mmol/L (132-148); TOTAL PROTEIN 6.9 g/dL (5.8-8.3)
[2016-12-24 12:03] VITALS: BP 135/83; PULSE 74; RESP 74; TEMP 98.7
[2016-12-24 12:19] LABS: MAGNESIUM 1.6 mg/dL (1.7-2.2)
[2016-12-24] MEDS ORDERED: Magnesium Sulfate 2 GM in Sodium Chloride 0.9% 100 ML IVPB ONE (12:40)
[2016-12-24] MEDS ORDERED: Magnesium Oxide 400 mg Tab UD PO SCH (12:45)
--- NOTE | 2016-12-24 14:13 | PN ---
DATE: 12/24/2016 Seen and examined at the bedside earlier today. The patient states she is feeling better. No shortn ess of breath. No chest pain. She wants to go home. Tolerating diet. VITAL SIGNS: Temperature is 98.3, blood pressure 141/78, her pulse is 97, respirations 21, 98% on ro om air. LABORATORIES: WBC is 8.7, H and H is 10.8 and 31.8, platelets of 245. Sodium is 128, K is 3.8, BUN 17, creatinine 0.9. Her LFTs are normal. Mag is 1.6. PHYSICAL EXAMINATION: HEENT: Sclera is anicteric. NECK: Supple. CARDIAC: S1, S2. LUNG SOUNDS: With decreased breath sounds at the bases, but good air entry, no rales or wheeze. ABDOMEN: With bowel sounds, soft, nontender. No rebound, guarding, or organomegaly. EXTREMITIES: No edema. NEUROLOGIC: Awake, alert, and oriented. ASSESSMENT: This is a 61-year-old female with history of mitral regurgitation, came with shortness o f breath and found to be in atrial fibrillation with rapid ventricular response. The patient was on Cardizem and also on heparin drip, which have both been discontinued. The patient is on oral Cardize m and on Lovenox. The patient has anemia, abnormal liver functions which may be secondary to hepatic congestion. She does have a history of ethyl alcohol use. Her liver enzymes are now normalized. A void any hepatotoxic drugs as well. Had discussion with patient. The patient wants to go home. We discussed with her that she would benefit from endoscopy and colonoscopy in view of decreased blood c ount and she is going to be on anticoagulants. The patient would prefer to have this done as an outp atient and would like to go home. The patient is currently on Lovenox q. 12, on Solu-Medrol and, lik e I said, Cardizem. The patient has low magnesium, which is going to be replaced. The patient was seen and case discussed with Dr. Ramirez. Kiley CHEUNG cc: [id number] TT: 12/24/2016 14:12:25 Confirmation # [id number] Dictation # [id number] en
[2016-12-24] MEDS ORDERED: Budesonide 0.5 mg/2 ml Inhal Susp UD IH ONE (15:30)
[2016-12-24] MEDS ORDERED: Arformoterol 15 mcg/2 ml Inh Sol IH ONE (15:30)
--- NOTE | 2016-12-24 16:23 | PN ---
DATE: 12/24/2016 REASON FOR CONSULTATION: Shortness of breath, AFib with rapid ventricular rate, chronic atrial fibri llation. Consult was seen by Dr. Michael, who is covering us. BRIEF CLINICAL HISTORY: This is a 61-year-old female with a past medical history significant for ast hma, history of chronic atrial fibrillation on anticoagulation. Came in with palpitation, AFib with rapid rate of 120 and shortness of breath. V/Q scan was done, was low probability. History of parox ysmal atrial fibrillation, history of mitral insufficiency, severe decreased LV function. Denies any chest pain, shortness of breath, any palpitation. Now lying flat. PHYSICAL EXAMINATION: As follows: VITAL SIGNS: Temperature afebrile, heart rate 74, blood pressure 135/83. HEENT: PERRLA, intact. NECK: Supple. No carotid bruits. No thyromegaly. CHEST: Clear to auscultation. HEART: Loud systolic murmur noted in mitral area. S1, S2 irregular. ABDOMEN: Soft. EXTREMITIES: Clubbing and cyanosis negative. BLOOD WORKUP: As follows: WBC 8.7, hemoglobin 10.8, hematocrit 31.8, platelet count 245. Chemistry shows sodium 128, potassium ____, chloride ____, carbon dioxide 18, anion gap of 14, BUN 17, creatin ine 0.9, magnesium 1.6. IMPRESSION: The patient's last echocardiography done on 10/26/2016, that showed ejection fraction 55 % to 60%, right ventricle mild to moderately dilated, systolic right ventricular function is mildly r educed, trace aortic regurgitation, severe mitral regurgitation, mild ____ status post ____ consisten t with anterior leaflet pathology, moderate tricuspid regurgitation, right ventricular systolic press ure 39. History of cardiac catheterization 02/05/2013 that shows essentially normal coronary, preser nico left ventricular function, ejection fraction 65%, normal right-sided pressure, 3-4+ mitral regurg itation, possibly severe. The patient was scheduled for MEDINA, but patient did not show up in the past . Status post cardiac catheterization, normal coronaries dated in 2014. Last stress test 01/26/2015 shows ischemia, but essentially unchanged from 2012. After that, the patient had a cardiac catheter ization that was found to be normal coronaries. The patient's most recent echo was 10/26/2016. The patient was mentioned to have MEDINA done to assess the severity of the mitral valve for possible mitral valve repair. The patient is still thinking. Discussed with Dr. Guerra this morning. If the patie nt agree, we will schedule a MEDINA as an outpatient for preparation of the valve surgery. We will foll ow with you. Thank you, Dr. Guerra, for providing us the opportunity in taking care of the patient. We will follo w with you. Brittany Beebe MD cc: [id number] TT: 12/24/2016 16:23:06 Confirmation # [id number] Dictation # [id number] sn
[2016-12-24 16:26] LABS: IRON 60 ug/dL (45-180)
--- NOTE | 2016-12-24 16:29 | PN ---
DATE: 12/24/2016 ADDENDUM TYPE OF DICTATION: Addendum to the progress note dictated. REASON FOR ADDENDUM: Question was asked by whether the patient needs long-term anticoagulation and can we send the patient home on Lovenox. All EKG reviewed. The patient very briefly was in Camilla b, possibly secondary to, precipitated by upper respiratory tract infection as patient was at home, a zithromycin, albuterol, and prednisone, so that triggers AFib. All the previous EKG was normal sinus , so we will discontinue Lovenox. Change Cardizem to CD 120 mg daily and on Lopressor 25 mg and aspi rin 325 mg daily. If the patient agreed, we will schedule a MEDINA and cardiac catheterization in preparation for the valve. If the patient does not want to go for the valve, continue current treat ment. We will follow with you. Will discuss with Dr. Guerra. Thank you, Dr. Guerra, for providing us the opportunity in taking care of the patient. Brittany Beebe MD cc: [id number] TT: 12/24/2016 16:29:17 Confirmation # [id number] Dictation # [id number] en
--- NOTE | 2016-12-24 16:33 | PN ---
DATE: 12/24/2016 ADDENDUM Addendum to initial progress note. REASON FOR ADDENDUM: Old chart reviewed. The patient had a cardiac catheterization done on 02/06/20 13 that showed normal coronaries, preserved LV function, ejection fraction 55%, normal right-sided pr essure, ejection fraction 65%, normal right-sided pressure, 3-4 MR, possibly severe MR, possibly arsen re MR with a severely enlarged left atrium, dated 02/05/2013. The patient subsequently scheduled for MEDINA to assess MR 02/19/2013. The patient did not show up. Later on, patient had the echo done, mos t recently on 10/26/2016 that shows severe mitral regurgitation, ____ 39, ____ function 55% to 60%. Discussed this morning about the patient, that needs MEDINA and possibly since 4 years, needs cardiac ca theterization for progression of the valve. The patient has a history of paroxysmal atrial fibrillat ion. The patient admitted in ____, now is normal sinus. Discussed with the patient. The patient is thinking, discussed also with Charlie. Thank you, Dr. Guerra, for providing the opportunity in taking care of the patient. Brittany Beebe MD cc:Baltazar Guerra MD 305 TT: 12/24/2016 16:32:27 Confirmation # [id number] Dictation # [id number] sn
[2016-12-24 17:39] LABS: FOLATE > 20.0 ng/mL
[2016-12-24] MEDS ORDERED: Arformoterol 15 mcg/2 ml Inh Sol IH SCH (20:00)
[2016-12-24] MEDS ORDERED: Budesonide 0.5 mg/2 ml Inhal Susp UD IH SCH (20:00)
--- NOTE | 2016-12-24 20:30 | PN ---
DATE: 12/24/2016 ADDENDUM This is an addendum to the GI progress report dictated by Kiley John APN. The patient has paroxysm al atrial fibrillation. This is an addendum to the GI progress report dictated by Kiley John APN. The cardiology note was reviewed. The patient has paroxysmal atrial fibrillation. Admitted with anemia. The patient had an emia. The patient would benefit from EGD and a colonoscopy. The patient will be scheduled for this as an outpatient. The patient agreed to schedule for a MEDINA. Planned to have the MEDINA. The patient i s agreeable. At the moment, the patient wants to make a decision about the valvular surgery. The derick monahan was strictly advised to lifestyle changes and reducing the alcohol intake. Will continue to cl osely follow up her care and suggest further management based on the clinical course. The patient wi ll be scheduled for an outpatient EGD and a colonoscopy. If the patient is sent home with Lovenox, t he plan is to hold the Lovenox dose the night before. Sun Ramirez MD cc: [id number] TT: 12/24/2016 20:29:40 Confirmation # [id number] Dictation # [id number] dn
[2016-12-24] MEDS ORDERED: Fluticasone-Salmeterol 250-50mcg Diskus IH SCH (22:00)
[2016-12-25] MEDS ORDERED: diltiaZEM 120 mg/24 Hours CD Cap PO SCH (10:00)
[2016-12-25] MEDS ORDERED: Aspirin 325 mg EC Tablets PO SCH (10:00)
--- NOTE | 2016-12-25 11:12 | DS ---
SUBJECTIVE: A 61-year-old female was discharged 12/24/2016. Patient came in with acute chest discomf ort associated with palpitations, found to have atrial fibrillation, transient, which converted to si nus rhythm on IV Cardizem. The patient was given IV heparin. Seen initially by Dr. Michael and wa s seen lately by Dr. Beebe. The patient is stable. She feels comfortable, no distress. PHYSICAL EXAMINATION: VITAL SIGNS: Temperature 98.7, heart rate 74, blood pressure 135/83, respiratory rate 18. HEAD AND NECK: Normal. No JVD, no thyromegaly. CHEST: Clear, good air entry. CARDIAC: First and second sounds are normal. ABDOMEN: Soft, nontender. EXTREMITIES: No edema. NEUROLOGIC: Normal. LABORATORY DATA: White count 8.7, hemoglobin 10.8, hematocrit 31.8, platelets 245. Chemistry shows sodium 128, potassium 3.8, chloride 100, bicarbonate 18, BUN 17, creatinine 0.9, blood sugar was 215. The patient magnesium also was 1.6. She was seen by cardiology, Dr. Beebe. She also had a VQ scan initially when she came in for chest di scomfort and palpitations, which shows low variability for ventilation perfusion scan. The patient d oes have a history also of mitral valve disease, was severe mitral regurgitation. DISCHARGE DIAGNOSIS: 1. Paroxysmal atrial fibrillation. The patient now in sinus rhythm. Discussed with Dr. Beebe. No n eed for Coumadin. She will continue with aspirin 325. 2. Hypertension. 3. History of mitral valve disease with severe mitral regurgitation. Patient will need a valve ____ _ or valve replacement. He will be seen by a cardiac surgeon and he will look at the patient and her echo. 4. The patient is obese. The patient advised to follow diet, low carbohydrate diet and walking ever y day. 5. Chronic osteoarthritis. Continue allopurinol and colchicine. 6. Anemia. The patient will benefit from esophagogastroduodenoscopy (EGD), colonoscopy. PLAN: We will discharge the patient home. Continue aspirin, continue Cardizem 120 once a day, metop rolol 25 b.i.d. The patient also was given Medrol pack and magnesium 400 b.i.d., Advair, Z-THELMA, Lipi tor 20, and allopurinol 100 and also she has an inhaler bronchodilator Ventolin 2 puffs q.i.d. We tarun freeman discharge the patient and follow up in office. The patient encouraged to go for cardiac catheteriz ation for further evaluation of coronary anatomy as well valve pathology Discharge home. Follow up w zia a week. Also follow up with the GI consult, Dr. Ramirez for outpatient EGD, colon. Baltazar Guerra MD cc: 223 TT: 12/25/2016 11:12:25 jn
== END 2016-12-24 17:15 | disposition home or self-care (01) | DRG 309 ==
LOC: ED 17:56 → ERH 21:19 → 2RSO 12-22 02:52
PROVIDERS: ADMIT Internal Medicine; ATTEND Internal Medicine
DX: I48.0 Paroxysmal atrial fibrillation (principal); J44.1 Chronic obstructive pulmonary disease with (acute) exacerbation; E87.1 Hypo-osmolality and hyponatremia; I27.2 Other secondary pulmonary hypertension; K76.1 Chronic passive congestion of liver; I10 Essential (primary) hypertension; I08.1 Rheumatic disorders of both mitral and tricuspid valves; D64.9 Anemia, unspecified; M17.0 Bilateral primary osteoarthritis of knee; I47.1 Supraventricular tachycardia; J45.909 Unspecified asthma, uncomplicated; M11.20 Other chondrocalcinosis, unspecified site; M10.9 Gout, unspecified; E78.00 Pure hypercholesterolemia, unspecified; I48.2 Chronic atrial fibrillation; E66.3 Overweight; Z68.24 Body mass index [BMI] 24.0-24.9, adult; Z79.01 Long term (current) use of anticoagulants

== ENCOUNTER 2016-12-28 13:13 | Day surgery (SDC) | payer MEDICARE ==
[2016-12-28] MEDS ORDERED: Propofol 10 mg/ml Inj (20 ML) ONE ×4 (15:13→17:10)
[2016-12-28] MEDS ORDERED: Benzocaine/Butamben/Tetracai 14-2-2% TOP Spray TOP ONE (15:14)
[2016-12-28] MEDS ORDERED: Albuterol HFA 90 mcg/actuation (8 g) ONE (15:15)
[2016-12-28] MEDS ORDERED: Sodium Chloride 0.9% 1,000 ML IV SCH (15:15)
[2016-12-28] MEDS ORDERED: Midazolam 2 MG/2 ML VIAL ONE (15:36)
[2016-12-28] MEDS ORDERED: Esmolol 100 mg/10ml Inj IV ONE (15:38)
[2016-12-28 17:05] VITALS: RESP 20; TEMP 98.1; O2SAT 96
[2016-12-28 17:48] VITALS: BP 126/70; PULSE 72
== END 2016-12-28 17:50 | disposition home or self-care (01) ==
LOC: ENDO 13:13
PROVIDERS: ATTEND Internal Medicine Gastroenterology
DX: K25.9 Gastric ulcer, unspecified as acute or chronic, without hemorrhage or perforation (principal); K29.50 Unspecified chronic gastritis without bleeding; K57.10 Diverticulosis of small intestine without perforation or abscess without bleeding; K64.8 Other hemorrhoids; K63.89 Other specified diseases of intestine; D50.9 Iron deficiency anemia, unspecified
CPT/HCPCS: 43239; 45378; 88305; 88342; J2001; J2250; J2704; J3010; J7040 ×2

== ENCOUNTER 2017-02-23 11:39 | Observation (INO) | payer MEDICARE, OTHER ==
--- NOTE | 2017-02-23 12:29 | ED PDOC ---
Arrival/HPI - General Chief Complaint: Shortness Of Breath Time Seen by Provider: 02/23/17 11:47 Historian: Patient - History of Present Illness Narrative History of Present Illness (Text): 02/23/17 11:51 A 61 year old female, whose past medical history includes, atrial fibrillation and asthma, presents to the emergency department with shortness of breath upon exertion, which has worsened within the last few days. The patient notes she was hospitalized in December for the same exact complaint and symptoms. She admits to feel better after being hospitalized, but the pain returned shortly after and is now experiencing the same symptoms. She reports that over the past week she feels short of breath with exertion and intermittent chest discomfort. Pain not pleuritic. Also reports right knee pain for several weeks, denies trauma. Time/Duration: < week (4 days) Symptom Course: Unchanged Activities at Onset: Light Context: Home Past Medical History - Provider Review Nursing Documentation Reviewed: Yes - Infectious Disease Hx of Infectious Diseases: None - Tetanus Immunization Tetanus Immunization: Unknown - Reproductive Menopause: Yes - Past Medical History Past Medical History: No Previous - Cardiac Hx Hypertension: Yes Hx Pacemaker: No Other/Comment: leaky valve - Pulmonary Hx Respiratory Disorders: Yes Hx Asthma: Yes Hx Chronic Obstructive Pulmonary Disease (COPD): Yes - Neurological Hx Paralysis: No - HEENT Hx HEENT Disorder: No - Renal Hx Renal Disorder: No - Endocrine/Metabolic Hx Endocrine Disorders: No - Hematological/Oncological Hx Blood Transfusions: Yes Hx Blood Transfusion Reaction: No - Integumentary Hx Dermatological Disorder: No - Musculoskeletal/Rheumatological Hx Musculoskeletal Disorders: Yes - Gastrointestinal Hx Gastrointestinal Disorders: No - Genitourinary/Gynecological Hx Genitourinary Disorders: No - Psychiatric Hx Emotional Abuse: No Hx Physical Abuse: No Hx Substance Use: No - Surgical History Hx Orthopedic Surgery: Yes - Anesthesia Hx Anesthesia Reactions: No Hx Malignant Hyperthermia: No - Suicidal Assessment Feels Threatened In Home Enviroment: No Family/Social History - Physician Review Nursing Documentation Reviewed: Yes Family/Social History: No Known Family HX Smoking Status: Former Smoker Hx Alcohol Use: Yes (SOCIALLY) Amount per day: 6 Hx Substance Use: No Hx Substance Use Treatment: No Allergies/Home Meds Allergies/Adverse Reactions: Allergies ALTOIDS Allergy (Intermediate, Uncoded 02/23/17 11:50) SWELLING FACE/LIPS UNKNOWN FOOD Allergy (Intermediate, Uncoded 02/23/17 11:50) SWELLING FACE/LIPS SEEN IN ED 03/07/16 Home Medications: Home Meds Medication Instructions Recorded Confirmed Albuterol/Ipratropium [Combivent 1 puff IH QID 02/23/17 02/23/17 Respimat] Enalapril Maleate [Vasotec] 5 mg PO DAILY 02/23/17 02/23/17 Ibuprofen [Motrin Tab] 600 mg PO TID 02/23/17 02/23/17 Pantoprazole [Protonix EC Tab] 40 mg PO DAILY 02/23/17 02/23/17 Review of Systems - Review of Systems Constitutional: absent: Fevers Eyes: absent: Vision Changes ENT: absent: Hearing Changes Respiratory: SOB. absent: Cough Cardiovascular: Chest Pain, AVELAR. absent: Calf Pain Gastrointestinal: absent: Abdominal Pain, Nausea, Vomiting Genitourinary Female: absent: Hematuria Musculoskeletal: Other (right side knee pain-chronic). absent: Back Pain Skin: absent: Rash Neurological: absent: Headache Endocrine: absent: Diaphoresis Hemo/Lymphatic: absent: Easy Bleeding Psychiatric: absent: Depression Physical Exam - Physical Exam Narrative Physical Exam (Text): 02/23/17 12:00 Head: Atraumatic. Normocephalic. Eyes: PERRL. EOMI. Conjunctivae are not pale. ENT: Mucous membranes are moist and intact. Oropharynx is clear and symmetric. Neck: Supple. Full ROM. No JVD. No lymphadenopathy. Cardiovascular: Occasional premature beat. Systolic murmur. Distal pulses are 2+ and symmetric. Pulmonary/Chest: No evidence of respiratory distress. Clear to auscultation bilaterally. No wheezing, rales or rhonchi. Abdominal: Soft and non-distended. There is no tenderness. No rebound, guarding, or rigidity. No organomegaly. Good bowel sounds. Back: No CVA tenderness. Extremities: No edema. No cyanosis. No clubbing. Full range of motion in all extremities. There is mild pain on palpation of anterior right knee but no warmth or erythema, no hip pain, no streaking. Distal pulses intact. No calf tenderness. Skin: Skin is warm and dry. No petechiae. No purpura. Neurological: Alert, awake, and oriented to person, place, time, and situation. Normal speech. Motor and sensory exam intact. Psychiatric: Good eye contact. Normal interaction, affect, and behavior. Vital Signs Reviewed: Yes Vital Signs Temp Pulse Resp BP Pulse Ox 02/23/17 21:41 97 H 18 150/72 99 02/23/17 19:13 78 132/62 02/23/17 19:00 98 H 18 143/75 99 02/23/17 17:00 102 H 18 145/81 99 02/23/17 15:00 99 H 18 148/89 99 02/23/17 13:39 112 H 18 151/99 H 99 02/23/17 11:47 18 02/23/17 11:46 98.2 F 103 H 18 136/107 H 97 Temperature: Afebrile Blood Pressure: Hypertensive Pulse: Tachycardic Respiratory Rate: Normal Appearance: Positive for: Well-Appearing, Non-Toxic, Uncomfortable Pain Distress: Mild Mental Status: Positive for: Alert and Oriented X 3 Medical Decision Making ED Course and Treatment: 02/23/17 12:00 Impression: A 61 year old female with shortness of breath and mild chest pain. Differential Diagnosis included but are not limited to: CHF vs. COPD vs. CAD Plan: -- EKG -- Chest X-ray -- Labs -- Urinalysis -- Reassess and disposition Prior Visits: Notes and results from previous visits were reviewed. The patient was last seen in the emergency department on 12/21/16 for shortness of breath. The patient was hospitalized. Progress Notes: Patient with complaints of chest pain and shortness of breath. Initial EKG unremarkable. Tachycardia improved on monitor. Not hypoxic. No calf pain or swelling. There has been unremarkable VQ scan earlier this year. No pleuritic pain or hypoxia. Chest X-Ray Tube Wrapper : John Sawant MD Report Date : 02/23/2017 12:54:30 HISTORY:sob COMPARISON:12/21/2016 FINDINGS: LUNGS:Ill-defined opacity at right base. Possible early pneumonia. Followup advised. PLEURA:No significant pleural effusion identified, no pneumothorax apparent. CARDIOVASCULAR:Normal. OSSEOUS STRUCTURES:No significant abnormalities. VISUALIZED UPPER ABDOMEN:Normal. OTHER FINDINGS:None. IMPRESSION: Possible early right basilar pneumonia. Follow-up advised. Given abnormal cxr findings, ct chest ordered as patient with complaints of chest pain and sob. CT Chest without contrast Tube Wrapper : John Sawant MD Report Date : 02/23/2017 15:07:10 HISTORY:abnormal cxr ? pneumonia COMPARISON:Chest x-ray 02/23/2017 FINDINGS: LUNGS:No pulmonary infiltrate. Bilateral minimal lower lobe linear scar/ atelectasis. Incidental 5 mm subpleural nodule in left lower lobe. No followup recommended as per Fleischner society criteria. MEDIASTINUM:Unremarkable thoracic aorta. No aneurysm. Normal sized heart. Main pulmonary artery unremarkable. No vascular congestion. No lymphadenopathy. PLEURA:No pleural fluid. No pneumothorax. BONES:Moderate thoracic levoscoliosis. No acute fracture. UPPER ABDOMEN:Grossly unremarkable. OTHER FINDINGS:None. IMPRESSION:No pulmonary infiltrate. Opacity seen at right base on chest radiograph was artifactual. No acute abnormality. Given persistent pain and no recent cardiac evaluation, patient admitted for observation for chest pain. Case accepted by hospitalist. - Lab Interpretations Microbiology Results: Microbiology Results 02/23/17 13:47 Blood Blood Culture - Preliminary NO GROWTH AFTER 24 HOURS 02/23/17 13:47 Blood Blood Culture - Preliminary NO GROWTH AFTER 24 HOURS Lab Results: 02/23/17 13:47 02/23/17 13:47 Lab Results 02/23/17 13:47: PT 10.7, INR 0.99, APTT 24.5 02/23/17 13:47: WBC 7.0, RBC 3.94, Hgb 12.1, Hct 35.8 L, MCV 90.9, MCH 30.7, MCHC 33.8, RDW 14.1, Plt Count 286, MPV 10.1, Gran % 66.8, Lymph % (Auto) 19.8 L , [place] % (Auto) 11.4 H, Eos % (Auto) 1.7, Baso % (Auto) 0.3, Gran # 4.69, Lymph # 1.4, [place] # 0.8 H, Eos # 0.1, Baso # 0.02 02/23/17 13:47: Sodium 139, Potassium 3.8, Chloride 106, Carbon Dioxide 21, Anion Gap 16, BUN 7, Creatinine 0.8, Est GFR ( Amer) > 60, Est GFR (Non- Af Amer) > 60, Random Glucose 149 H, Calcium 9.7, Total Bilirubin 0.6, AST 41 H , ALT 34, Alkaline Phosphatase 153 H, Lactate Dehydrogenase 578, Total Creatine Kinase 54, Troponin I < 0.01 D, NT-Pro-B Natriuret Pep 357, Total Protein 7.4, Albumin 4.0, Globulin 3.4, Albumin/Globulin Ratio 1.2 - RAD Interpretation Radiology Orders: 02/23/17 12:01 CHEST PORTABLE [RAD] Stat 02/23/17 13:59 CHEST W/O CONTRAST [CT] Stat - EKG Interpretation EKG Interpretation (Text): 02/23/17 23:01 EKG sinus tachycardia rate of 108, left axis deviation, left ventricular hypertrophy Interpreted by ED Physician: Yes Type: 12 lead EKG - Medication Orders Current Medication Orders: Discontinued Medications Albuterol Sulfate (Albuterol 0.083% Inhal Valeria (2.5 Mg/3 Ml) Ud) 2.5 mg IH QIDRESP PRN PRN Reason: Shortness of Breath Albuterol/Ipratropium (Duoneb 3 Mg/0.5 Mg (3 Ml) Ud) 3 ml IH QIDRESP [facility] Last Admin: 02/23/17 22:00 Dose: 3 ml Aspirin (Ecotrin) 325 mg PO DAILY [facility] Last Admin: 02/24/17 09:05 Dose: 325 mg Atorvastatin Calcium (Lipitor) 20 mg PO DIN [facility] Last Admin: 02/23/17 19:14 Dose: 20 mg Diltiazem HCl (Cardizem Cd) 120 mg PO DAILY [facility] Last Admin: 02/24/17 09:05 Dose: 120 mg Ibuprofen (Motrin Tab) 600 mg PO TID [facility] Ibuprofen (Motrin Tab) 400 mg PO TID [facility] Ibuprofen (Motrin Tab) 400 mg PO TID PRN PRN Reason: Pain, moderate (4-7) Last Admin: 02/24/17 03:21 Dose: 400 mg Re-Assess: MAR Pain/Vitals Document 02/24/17 04:21 CDL (Rec: 02/24/17 05:21 CDL [id number]) Pain Reassessment Is This A Pain ReAssessment? Yes Sleep Is patient sleeping during reassessment? Yes Lisinopril (Zestril) 5 mg PO DAILY [facility] Last Admin: 02/24/17 09:06 Dose: 5 mg Magnesium Oxide (Mag-Ox) 400 mg PO DAILY [facility] Last Admin: 02/24/17 09:05 Dose: 400 mg Metoprolol Tartrate (Lopressor) 25 mg PO BRKDIN [facility] Last Admin: 02/24/17 08:25 Dose: 25 mg Pantoprazole Sodium (Protonix Ec Tab) 40 mg PO ACB [facility] Last Admin: 02/24/17 08:26 Dose: 40 mg - PA / DRILLER OPERATOR / Resident Statement MD/DO has reviewed & agrees with the documentation as recorded. - Scribe Statement The provider has reviewed the documentation as recorded by the Sohaibe Jennifer Otero Provider Scribe Attestation: All medical record entries made by the Sohaibfermin were at my direction and personally dictated by me. I have reviewed the chart and agree that the record accurately reflects my personal performance of the history, physical exam, medical decision making, and the department course for this patient. I have also personally directed, reviewed, and agree with the discharge instructions and disposition. Disposition/Present on Arrival - Present on Arrival Any Indicators Present on Arrival: No History of DVT/PE: No History of Uncontrolled Diabetes: No Urinary Catheter: No History of Decub. Ulcer: No History Surgical Site Infection Following: None - Disposition Have Diagnosis and Disposition been Completed?: Yes Diagnosis: Chest pain Disposition: HOSPITALIZED Disposition Time: 13:25 Patient Plan: Admission, Observation Condition: FAIR
--- NOTE | 2017-02-23 12:56 | RAD ---
HISTORY: sob COMPARISON: 12/21/2016 FINDINGS: LUNGS: Ill-defined opacity at right base. Possible early pneumonia. Followup advised. PLEURA: No significant pleural effusion identified, no pneumothorax apparent. CARDIOVASCULAR: Normal. OSSEOUS STRUCTURES: No significant abnormalities. VISUALIZED UPPER ABDOMEN: Normal. OTHER FINDINGS: None. IMPRESSION: Possible early right basilar pneumonia. Follow-up advised.
--- NOTE | 2017-02-23 13:13 | CARD ---
APPROVED REPORT EKG Measurement Heart [id number] <Conclusion> Sinus tachycardia Possible Left atrial enlargement Left axis deviation Left ventricular hypertrophy Abnormal ECG
[2017-02-23 13:44] VITALS: O2SAT 99
[2017-02-23 13:53] LABS: BASO # 0.02 K/mm3 (0.0-2.0); BASO % 0.3 % (0.0-3.0); EOS # 0.1 (0.0-0.7); EOS % 1.7 % (1.5-5.0); GRAN # 4.69 (1.4-6.5); GRAN % 66.8 % (50.0-68.0); HEMATOCRIT 35.8 % (36.0-48.0); LYMPH # 1.4 (1.2-3.4); LYMPH % 19.8 % (22.0-35.0); MEAN CELL VOLUME 90.9 fl (80.0-105.0); MEAN CORPUSCULAR HEMOGLOBIN 30.7 pg (25.0-35.0); MEAN CORPUSCULAR HGB CONC 33.8 g/dl (31.0-37.0); MEAN PLATELET VOLUME 10.1 fl (7.0-11.0); MONO # 0.8 (0.1-0.6); MONO % 11.4 % (1.0-6.0); RED CELL DISTRIBUTION WIDTH 14.1 % (11.5-14.5)
[2017-02-23 14:02] LABS: INR 0.99 (0.93-1.08); PARTIAL THROMBOPLASTIN TIME 24.5 Seconds (23.7-30.8)
[2017-02-23 14:03] LABS: ALB/GLOB RATIO 1.2 (1.1-1.8); ALKALINE PHOSPHATASE 153 U/L (38-133); ALT/SGPT 34 U/L (7-56); AST/SGOT 41 U/L (15-39); BILIRUBIN,TOTAL 0.6 mg/dL (0.2-1.3); BLOOD UREA NITROGEN 7 mg/dL (7-21); CALCIUM 9.7 mg/dL (8.4-10.5); CARBON DIOXIDE 21 mmol/L (21-33); CHLORIDE 106 mmol/L (98-107); GFR AFRICAN-AMERICAN > 60; GLUCOSE,RANDOM 149 mg/dL (70-110); POTASSIUM 3.8 mmol/L (3.6-5.0); SODIUM 139 mmol/L (132-148); TOTAL PROTEIN 7.4 g/dL (5.8-8.3)
[2017-02-23 14:18] LABS: TROPONIN I < 0.01 ng/mL
--- NOTE | 2017-02-23 15:08 | CT ---
PROCEDURE: CT Chest without contrast HISTORY: abnormal cxr ? pneumonia COMPARISON: Chest x-ray 02/23/2017 TECHNIQUE: Contiguous axial images were obtained through the chest without intravenous contrast enhancement. Sagittal and coronal reconstructions were performed. Radiation dose (DLP): 341.13 mGy-cm. This CT exam was performed using one or more of the following dose reduction techniques: Automated exposure control, adjustment of the mA and/or kV according to patient size, and/or use of iterative reconstruction technique. FINDINGS: LUNGS: No pulmonary infiltrate. Bilateral minimal lower lobe linear scar/ atelectasis. Incidental 5 mm subpleural nodule in left lower lobe. No followup recommended as per Fleischner society criteria. MEDIASTINUM: Unremarkable thoracic aorta. No aneurysm. Normal sized heart. Main pulmonary artery unremarkable. No vascular congestion. No lymphadenopathy. PLEURA: No pleural fluid. No pneumothorax. BONES: Moderate thoracic levoscoliosis. No acute fracture. UPPER ABDOMEN: Grossly unremarkable. OTHER FINDINGS: None. IMPRESSION: No pulmonary infiltrate. Opacity seen at right base on chest radiograph was artifactual. No acute abnormality.
[2017-02-23 16:38] LABS: URINE BILIRUBIN SMALL (NEGATIVE); URINE BLOOD NEGATIVE (NEGATIVE); URINE GLUCOSE (UA) NEGATIVE (NEGATIVE); URINE KETONE NEGATIVE (NEGATIVE); URINE LEUKOCYTE ESTERASE NEGATIVE Leu/uL (NEGATIVE); URINE PROTEIN TRACE mg/dL (<30 mg/dL)
[2017-02-23 16:43] LABS: URINE APPEARANCE CLEAR (CLEAR); URINE COLOR YELLOW (YELLOW)
--- NOTE | 2017-02-23 17:55 | CP.PCM.HP ---
<Sebastien Cohn - Last Filed: 02/23/17 17:50> History of Present Illness - History of Present Illness History of Present Illness: CC: Shortness of breath, chest pain, and R knee pain 61 F whose pmh includes severe mitral regurge, atrial fibrillation and asthma, presents to the ED with chest pain and shortness of breath mainly upon exertion. Pt states that the pain and sob started 10 days ago but has gotten recently worse in the last few days. She c/o chest discomfort under her L breast that is non radiating and 4/10 in severity. Pt was hospitalized in December for similar complaints. She also complains of right knee pain that she attributes to a fall in 2013 and she states that she normally is treated with a cortisone shot. The patient denies any f/c, vision changes, hearing changes, cough, wheezing, calf pain, abdominal pain, n/v, back pain, headache, sweats, or any other complaints at this time. PMH: as above PSH: cholecystectomy, bunioectomy, and carpal tunnel ALL: NKA Med: refer to MAR SH: denies any smoking, or drugs; social drinker FH: denies Present on Admission - Present on Admission Any Indicators Present on Admission: No Review of Systems - Review of Systems All systems: reviewed and no additional remarkable complaints except (HPI) Past Patient History - Infectious Disease Hx of Infectious Diseases: None - Tetanus Immunizations Tetanus Immunization: Unknown - Past Social History Smoking Status: Former Smoker - CARDIAC Hx Hypertension: Yes Hx Pacemaker: No Other/Comment: leaky valve - PULMONARY Hx Respiratory Disorders: Yes Hx Asthma: Yes Hx Chronic Obstructive Pulmonary Disease (COPD): Yes - NEUROLOGICAL Hx Paralysis: No - HEENT Hx HEENT Problems: No - RENAL Hx Chronic Kidney Disease: No - ENDOCRINE/METABOLIC Hx Endocrine Disorders: No - HEMATOLOGICAL/ONCOLOGICAL Hx Blood Transfusions: Yes Hx Blood Transfusion Reaction: No - INTEGUMENTARY Hx Dermatological Problems: No - MUSCULOSKELETAL/RHEUMATOLOGICAL Hx Musculoskeletal Disorders: Yes - GASTROINTESTINAL Hx Gastrointestinal Disorders: No - GENITOURINARY/GYNECOLOGICAL Hx Genitourinary Disorders: No - PSYCHIATRIC Hx Emotional Abuse: No Hx Physical Abuse: No Hx Substance Use: No - SURGICAL HISTORY Hx Orthopedic Surgery: Yes - ANESTHESIA Hx Anesthesia Reactions: No Hx Malignant Hyperthermia: No Meds Allergies/Adverse Reactions: Allergies Allergy/AdvReac Type Severity Reaction Status Date / Time ALTOIDS Allergy Intermediate SWELLING Uncoded 02/23/17 11:50 FACE/LIPS UNKNOWN FOOD Allergy Intermediate SWELLING Uncoded 02/23/17 11:50 FACE/LIPS Physical Exam - Constitutional Appears: No Acute Distress - Head Exam Head Exam: ATRAUMATIC, NORMAL INSPECTION, NORMOCEPHALIC - Eye Exam Eye Exam: EOMI, PERRL Pupil Exam: NORMAL ACCOMODATION, PERRL - ENT Exam ENT Exam: Mucous Membranes Moist - Respiratory Exam Respiratory Exam: Clear to Auscultation Bilateral. absent: Rales, Rhonchi, Wheezes - Cardiovascular Exam Cardiovascular Exam: Tachycardia, +S1, +S2. absent: Irregular Rhythm - GI/Abdominal Exam GI & Abdominal Exam: Normal Bowel Sounds, Soft. absent: Tenderness - Extremities Exam Extremities exam: Negative for: calf tenderness, pedal edema, tenderness Additional comments: R knee warm to touch and mildly swollen - Back Exam Back exam: absent: CVA tenderness (L) - Neurological Exam Neurological exam: Alert, CN II-XII Intact, Oriented x3 - Psychiatric Exam Psychiatric exam: Normal Affect, Normal Mood - Skin Skin Exam: Dry, Intact, Warm Results - Vital Signs Recent Vital Signs: Last Vital Signs Temp 98.2 F 02/23/17 11:46 Pulse 102 H 02/23/17 17:00 Resp 18 02/23/17 17:00 BP 145/81 02/23/17 17:00 Pulse Ox 99 02/23/17 17:00 - Labs Result Diagrams: 02/23/17 13:47 02/23/17 13:47 Labs: Laboratory Results - last 24 hr 02/23/17 16:26 Urine Color Yellow Urine Appearance Clear Urine pH 6.0 Ur Specific [place] 1.020 Urine Protein Trace H Urine Glucose (UA) Negative Urine Ketones Negative Urine Blood Negative Urine Nitrate Negative Urine Bilirubin Small H Urine Urobilinogen 1.0 H Ur Leukocyte Esterase Negative Urine RBC 1 - 3 Urine WBC 1 - 3 Ur Epithelial Cells 3 - 4 Assessment & Plan - Assessment and Plan (Free Text) Assessment: 61 F whose pmh includes severe mitral regurg, atrial fibrillation and asthma, presents to the ED with chest pain and shortness of breath possibly secondary to her paroxysmal afib, and R knee pain. 1. Chest pain: - Trops x 1 negative, BNP negative - f/u serial trops - EKG showed sinus tach 103bpm, LVH and LAD - CXR showed possible infiltrates - CT chest showed no signs of pneumonia - Cardiology consulted for recs - Cont home Aspirin, Cardizem , and Metoprolol - F/u daily labs, Lipid profile 2. R knee pain - Motrin 400mg PRN - F/u R knee xray 3. HTN - Cont home Lisinopril 4. Hx of asthma - Cont Albuterol as needed 5. GI/DVT ppx - protonix and SCDs Case and plan was seen, reviewed, and discussed in detail with Dr Escalante. <Luis Enrique Escalante - Last Filed: 02/23/17 18:12> Results - Vital Signs Recent Vital Signs: Last Vital Signs Temp 98.2 F 02/23/17 11:46 Pulse 102 H 02/23/17 17:00 Resp 18 02/23/17 17:00 BP 145/81 02/23/17 17:00 Pulse Ox 99 02/23/17 17:00 - Labs Result Diagrams: 02/23/17 13:47 02/23/17 13:47 Labs: Laboratory Results - last 24 hr 02/23/17 16:26 Urine Color Yellow Urine Appearance Clear Urine pH 6.0 Ur Specific [place] 1.020 Urine Protein Trace H Urine Glucose (UA) Negative Urine Ketones Negative Urine Blood Negative Urine Nitrate Negative Urine Bilirubin Small H Urine Urobilinogen 1.0 H Ur Leukocyte Esterase Negative Urine RBC 1 - 3 Urine WBC 1 - 3 Ur Epithelial Cells 3 - 4 Attending/Attestation - Attestation I have personally seen and examined this patient.: Yes I have fully participated in the care of the patient.: Yes I have reviewed all pertinent clinical information: Yes Notes (Text): 02/23/17 18:08 61 year old female with past medical history of paroxysmal afib, mitral regurgitation, asthma, arthritis and hypertension who presents with complaint of intermittent chest pain and shortness of breath. EKG showed sinus tachycardia at 103 bpm. Initial cardiac enzyme was negative. CXR showed possible infiltrate however this was followed up with CT chest which was negative. Will admit to telemetry unit and obtain serial cardiac enzymes to rule out ACS. Cardiology evaluation is requested. Continue with home medications including aspirin, cardizem and metoprolol. She also complained of right knee pain. She is currently on motrin and xray of the knee is ordered. She is on albuterol for history of asthma. Luis Enrique Escalante MD Hospitalist.
[2017-02-23] MEDS: diltiaZEM 120 mg/24 Hours CD Cap PO SCH (19:13)
[2017-02-23] MEDS: Magnesium Oxide 400 mg Tab UD PO SCH (19:14)
[2017-02-23] MEDS: Aspirin 325 mg EC Tablets PO SCH (19:14)
[2017-02-23] MEDS ORDERED: Albuterol-Ipratrop 3 mg / 0.5 (3 ml) UD IH SCH (19:30)
[2017-02-23] MEDS ORDERED: Albuterol 0.083% Inhal Sol (2.5 mg/3 mL) UD IH PRN (19:30)
[2017-02-24 00:02] LABS: TROPONIN I < 0.01 ng/mL
[2017-02-24 01:01] VITALS: RESP 20; BMI 25.9
[2017-02-24 06:35] VITALS: TEMP 98
[2017-02-24 06:50] LABS: ALB/GLOB RATIO 1.2 (1.1-1.8); ALKALINE PHOSPHATASE 129 U/L (38-133); ALT/SGPT 33 U/L (7-56); AST/SGOT 40 U/L (15-39); BILIRUBIN,TOTAL 0.4 mg/dL (0.2-1.3); BLOOD UREA NITROGEN 8 mg/dL (7-21); CALCIUM 9.3 mg/dL (8.4-10.5); CARBON DIOXIDE 24 mmol/L (21-33); CHOLESTEROL 191 mg/dL (130-200); GFR AFRICAN-AMERICAN > 60; GLUCOSE,RANDOM 107 mg/dL (70-110); TOTAL PROTEIN 6.5 g/dL (5.8-8.3)
[2017-02-24 06:54] LABS: HEMATOCRIT 34.6 % (36.0-48.0); MEAN CELL VOLUME 90.6 fl (80.0-105.0); MEAN CORPUSCULAR HEMOGLOBIN 29.6 pg (25.0-35.0); MEAN CORPUSCULAR HGB CONC 32.7 g/dl (31.0-37.0); MEAN PLATELET VOLUME 9.7 fl (7.0-11.0); RED CELL DISTRIBUTION WIDTH 14.3 % (11.5-14.5); WHITE BLOOD COUNT 4.2 10^3/ul (4.5-11.0)
[2017-02-24 06:57] LABS: CHLORIDE 106 mmol/L (98-107); POTASSIUM 3.9 mmol/L (3.6-5.0); SODIUM 138 mmol/L (132-148)
[2017-02-24 07:02] LABS: TROPONIN I < 0.01 ng/mL
[2017-02-24] MEDS ORDERED: Pantoprazole 40 mg EC Tab PO SCH (07:30)
[2017-02-24] MEDS: Magnesium Oxide 400 mg Tab UD PO SCH (09:05)
[2017-02-24] MEDS: Aspirin 325 mg EC Tablets PO SCH (09:05)
[2017-02-24] MEDS: diltiaZEM 120 mg/24 Hours CD Cap PO SCH (09:05)
[2017-02-24 09:07] VITALS: BP 142/89; PULSE 111
--- NOTE | 2017-02-24 09:38 | RAD ---
PROCEDURE: Right Knee Radiographs. HISTORY: right knee pain COMPARISON: None. FINDINGS: BONES: No acute fracture JOINTS: Medial and patellofemoral osteoarthritis noted. No articular erosion. JOINT EFFUSION: Trace OTHER FINDINGS: None. IMPRESSION: Medial and patellofemoral osteoarthritis.
--- NOTE | 2017-02-24 15:29 | CP.PCM.DIS ---
<SOCO MCKEON - Last Filed: 02/24/17 15:14> Provider - Provider Date of Admission: 02/23/17 15:17 Attending physician: Luis Enrique Escalante MD Primary care physician: Baltazar Guerra MD Consults: Cardio: Abiel Time Spent in preparation of Discharge (in minutes): 45 Hospital Course - Lab Results Lab Results: Micro Results 02/23/17 16:26 Urine Urine Culture - Preliminary No growth. Most Recent Lab Values WBC 4.2 10^3/ul (4.5-11.0) L D 02/24/17 06:00 RBC 3.82 10^6/uL (3.5-6.1) 02/24/17 06:00 Hgb 11.3 g/dL (12.0-16.0) L 02/24/17 06:00 Hct 34.6 % (36.0-48.0) L 02/24/17 06:00 MCV 90.6 fl (80.0-105.0) 02/24/17 06:00 MCH 29.6 pg (25.0-35.0) 02/24/17 06:00 MCHC 32.7 g/dl (31.0-37.0) 02/24/17 06:00 RDW 14.3 % (11.5-14.5) 02/24/17 06:00 Plt Count 254 10^3/uL (120.0-450.0) 02/24/17 06:00 MPV 9.7 fl (7.0-11.0) 02/24/17 06:00 Gran % 66.8 % (50.0-68.0) 02/23/17 13:47 Lymph % (Auto) 19.8 % (22.0-35.0) L 02/23/17 13:47 [place] % (Auto) 11.4 % (1.0-6.0) H 02/23/17 13:47 Eos % (Auto) 1.7 % (1.5-5.0) 02/23/17 13:47 Baso % (Auto) 0.3 % (0.0-3.0) 02/23/17 13:47 Gran # 4.69 (1.4-6.5) 02/23/17 13:47 Lymph # 1.4 (1.2-3.4) 02/23/17 13:47 [place] # 0.8 (0.1-0.6) H 02/23/17 13:47 Eos # 0.1 (0.0-0.7) 02/23/17 13:47 Baso # 0.02 K/mm3 (0.0-2.0) 02/23/17 13:47 PT 10.7 Seconds (9.9-11.8) 02/23/17 13:47 INR 0.99 (0.93-1.08) 02/23/17 13:47 APTT 24.5 Seconds (23.7-30.8) 02/23/17 13:47 Sodium 138 mmol/L (132-148) 02/24/17 06:00 Potassium 3.9 mmol/L (3.6-5.0) 02/24/17 06:00 Chloride 106 mmol/L (98-107) 02/24/17 06:00 Carbon Dioxide 24 mmol/L (21-33) 02/24/17 06:00 Anion Gap 12 (10-20) 02/24/17 06:00 BUN 8 mg/dL (7-21) 02/24/17 06:00 Creatinine 0.9 mg/dL (0.5-1.4) 02/24/17 06:00 Est GFR ( Amer) > 60 02/24/17 06:00 Est GFR (Non-Af Amer) > 60 02/24/17 06:00 Random Glucose 107 mg/dL (70-110) 02/24/17 06:00 Calcium 9.3 mg/dL (8.4-10.5) 02/24/17 06:00 Total Bilirubin 0.4 mg/dL (0.2-1.3) 02/24/17 06:00 AST 40 U/L (15-39) H 02/24/17 06:00 ALT 33 U/L (7-56) 02/24/17 06:00 Alkaline Phosphatase 129 U/L (38-133) 02/24/17 06:00 Lactate Dehydrogenase 486 U/L (333-699) 02/24/17 06:00 Total Creatine Kinase 40 U/L (35-230) 02/24/17 06:00 Troponin I < 0.01 ng/mL 02/24/17 06:00 NT-Pro-B Natriuret Pep 357 pg/mL (0-450) 02/23/17 13:47 Total Protein 6.5 g/dL (5.8-8.3) 02/24/17 06:00 Albumin 3.5 g/dL (3.0-4.8) 02/24/17 06:00 Globulin 3.0 gm/dL 02/24/17 06:00 Albumin/Globulin Ratio 1.2 (1.1-1.8) 02/24/17 06:00 Triglycerides 55 mg/dL (35-160) 02/24/17 06:00 Cholesterol 191 mg/dL (130-200) 02/24/17 06:00 LDL Cholesterol Direct 107 mg/dL (0-129) 02/24/17 06:00 HDL Cholesterol 72 mg/dL (29-60) H 02/24/17 06:00 Urine Color Yellow (YELLOW) 02/23/17 16:26 Urine Appearance Clear (CLEAR) 02/23/17 16:26 Urine pH 6.0 (4.7-8.0) 02/23/17 16:26 Ur Specific [place] 1.020 (1.005-1.035) 02/23/17 16:26 Urine Protein Trace mg/dL (<30 mg/dL) H 02/23/17 16:26 Urine Glucose (UA) Negative mg/dL (NEGATIVE) 02/23/17 16:26 Urine Ketones Negative mg/dL (NEGATIVE) 02/23/17 16:26 Urine Blood Negative (NEGATIVE) 02/23/17 16:26 Urine Nitrate Negative (NEGATIVE) 02/23/17 16:26 Urine Bilirubin Small (NEGATIVE) H 02/23/17 16:26 Urine Urobilinogen 1.0 E.U./dL (<1 E.U./dL) H 02/23/17 16:26 Ur Leukocyte Esterase Negative Miguel/uL (NEGATIVE) 02/23/17 16:26 Urine RBC 1 - 3 /hpf (0-2) 02/23/17 16:26 Urine WBC 1 - 3 /hpf (0-6) 02/23/17 16:26 Ur Epithelial Cells 3 - 4 /hpf (0-5) 02/23/17 16:26 - Hospital Course Hospital Course: 61 F whose pmh includes severe mitral regurge, atrial fibrillation and asthma, presents to the ED with chest pain and shortness of breath mainly upon exertion. Pt states that the pain and sob started 10 days ago but has gotten recently worse in the last few days. She c/o chest discomfort under her L breast that is non radiating and 4/10 in severity. Pt was hospitalized in December for similar complaints. She also complains of right knee pain that she attributes to a fall in 2013 and she states that she normally is treated with a cortisone shot. The patient denies any f/c, vision changes, hearing changes, cough, wheezing, calf pain, abdominal pain, n/v, back pain, headache, sweats, or any other complaints at this time. In the ED, labs and imaging were ordered. EKG showed sinus tachycardia. CXR shows possible early right basilar pneumonia. Chest CT shows no pulmonary infiltrate. CBC and CMP were unremarkable. Troponin negative x1. Pt was admitted to evaluate chest pain to rule out acute coronary syndrome. Troponins were trended and were negative x2. Cardio was consulted. Pt clear for discharge from their standpoint, but should continue diltiazem and metoprolol. Today, pt was seen and examined at bedside. Pt denies any acute overnight events. Pt states that CP has subsided. Pt states that right knee was less swollen and painful. Official right knee x-ray interpretation showed osteoarthritis. Pt denied CP, SOB, n/v/d, chills, fevers, abdominal pain, [place], dizziness, dysuria, polyuria, or joint pain other than right knee. Pt will discharged home and continued on current medications. Pt was advised to follow up with PMD and site manager to further manage her condition. Discharge Exam - Head Exam Head Exam: ATRAUMATIC, NORMAL INSPECTION, NORMOCEPHALIC - Eye Exam Eye Exam: EOMI, PERRL - ENT Exam ENT Exam: Mucous Membranes Moist - Neck Exam Neck exam: Full Rom - Respiratory Exam Respiratory Exam: Clear to PA & Lateral. absent: Rales, Rhonchi, Wheezes - Cardiovascular Exam Cardiovascular Exam: RRR, +S1, +S2. absent: Diastolic murmur, Gallop, Rubs, Systolic Murmur - GI/Abdominal Exam GI & Abdominal Exam: Soft. absent: Distended, Guarding, Rebound, Rigid, Tenderness - Extremities Exam Additional comments: Decreased right knee swelling and tenderness - Neurological Exam Neurological exam: Alert, CN II-XII Intact, Oriented x3 - Psychiatric Exam Psychiatric exam: Normal Affect, Normal Mood - Skin Skin Exam: Dry, Intact, Normal Color, Warm Discharge Plan - Follow Up Plan Condition: FAIR Disposition: HOME/ ROUTINE Instructions: Chest Pain (DC), Chest Pain (GEN) Additional Instructions: 1. Follow up with PMD within 1 week 2. Get referral for orthopedic from PMD if knee pain worsens 3. Follow up with site manager within 1 week 4. Take medications as prescribed 5. Return to ED, if symptoms worsen, including but not limited to chest with radiation to left arm or shortness of breath Referrals: Brittany Beebe MD [Staff Provider] - Baltazar Guerra MD [Primary Care Provider] - <Luis Enrique Escalante - Last Filed: 02/24/17 15:45> Provider - Provider Date of Admission: 02/23/17 15:17 Attending physician: Luis Enrique Escalante MD Primary care physician: Baltazar Guerra MD Hospital Course - Lab Results Lab Results: Micro Results 02/23/17 16:26 Urine Urine Culture - Preliminary No growth. Most Recent Lab Values WBC 4.2 10^3/ul (4.5-11.0) L D 02/24/17 06:00 RBC 3.82 10^6/uL (3.5-6.1) 02/24/17 06:00 Hgb 11.3 g/dL (12.0-16.0) L 02/24/17 06:00 Hct 34.6 % (36.0-48.0) L 02/24/17 06:00 MCV 90.6 fl (80.0-105.0) 02/24/17 06:00 MCH 29.6 pg (25.0-35.0) 02/24/17 06:00 MCHC 32.7 g/dl (31.0-37.0) 02/24/17 06:00 RDW 14.3 % (11.5-14.5) 02/24/17 06:00 Plt Count 254 10^3/uL (120.0-450.0) 02/24/17 06:00 MPV 9.7 fl (7.0-11.0) 02/24/17 06:00 Gran % 66.8 % (50.0-68.0) 02/23/17 13:47 Lymph % (Auto) 19.8 % (22.0-35.0) L 02/23/17 13:47 [place] % (Auto) 11.4 % (1.0-6.0) H 02/23/17 13:47 Eos % (Auto) 1.7 % (1.5-5.0) 02/23/17 13:47 Baso % (Auto) 0.3 % (0.0-3.0) 02/23/17 13:47 Gran # 4.69 (1.4-6.5) 02/23/17 13:47 Lymph # 1.4 (1.2-3.4) 02/23/17 13:47 [place] # 0.8 (0.1-0.6) H 02/23/17 13:47 Eos # 0.1 (0.0-0.7) 02/23/17 13:47 Baso # 0.02 K/mm3 (0.0-2.0) 02/23/17 13:47 PT 10.7 Seconds (9.9-11.8) 02/23/17 13:47 INR 0.99 (0.93-1.08) 02/23/17 13:47 APTT 24.5 Seconds (23.7-30.8) 02/23/17 13:47 Sodium 138 mmol/L (132-148) 02/24/17 06:00 Potassium 3.9 mmol/L (3.6-5.0) 02/24/17 06:00 Chloride 106 mmol/L (98-107) 02/24/17 06:00 Carbon Dioxide 24 mmol/L (21-33) 02/24/17 06:00 Anion Gap 12 (10-20) 02/24/17 06:00 BUN 8 mg/dL (7-21) 02/24/17 06:00 Creatinine 0.9 mg/dL (0.5-1.4) 02/24/17 06:00 Est GFR ( Amer) > 60 02/24/17 06:00 Est GFR (Non-Af Amer) > 60 02/24/17 06:00 Random Glucose 107 mg/dL (70-110) 02/24/17 06:00 Calcium 9.3 mg/dL (8.4-10.5) 02/24/17 06:00 Total Bilirubin 0.4 mg/dL (0.2-1.3) 02/24/17 06:00 AST 40 U/L (15-39) H 02/24/17 06:00 ALT 33 U/L (7-56) 02/24/17 06:00 Alkaline Phosphatase 129 U/L (38-133) 02/24/17 06:00 Lactate Dehydrogenase 486 U/L (333-699) 02/24/17 06:00 Total Creatine Kinase 40 U/L (35-230) 02/24/17 06:00 Troponin I < 0.01 ng/mL 02/24/17 06:00 NT-Pro-B Natriuret Pep 357 pg/mL (0-450) 02/23/17 13:47 Total Protein 6.5 g/dL (5.8-8.3) 02/24/17 06:00 Albumin 3.5 g/dL (3.0-4.8) 02/24/17 06:00 Globulin 3.0 gm/dL 02/24/17 06:00 Albumin/Globulin Ratio 1.2 (1.1-1.8) 02/24/17 06:00 Triglycerides 55 mg/dL (35-160) 02/24/17 06:00 Cholesterol 191 mg/dL (130-200) 02/24/17 06:00 LDL Cholesterol Direct 107 mg/dL (0-129) 02/24/17 06:00 HDL Cholesterol 72 mg/dL (29-60) H 02/24/17 06:00 Urine Color Yellow (YELLOW) 02/23/17 16:26 Urine Appearance Clear (CLEAR) 02/23/17 16:26 Urine pH 6.0 (4.7-8.0) 02/23/17 16:26 Ur Specific [place] 1.020 (1.005-1.035) 02/23/17 16:26 Urine Protein Trace mg/dL (<30 mg/dL) H 02/23/17 16:26 Urine Glucose (UA) Negative mg/dL (NEGATIVE) 02/23/17 16:26 Urine Ketones Negative mg/dL (NEGATIVE) 02/23/17 16:26 Urine Blood Negative (NEGATIVE) 02/23/17 16:26 Urine Nitrate Negative (NEGATIVE) 02/23/17 16:26 Urine Bilirubin Small (NEGATIVE) H 02/23/17 16:26 Urine Urobilinogen 1.0 E.U./dL (<1 E.U./dL) H 02/23/17 16:26 Ur Leukocyte Esterase Negative Miguel/uL (NEGATIVE) 02/23/17 16:26 Urine RBC 1 - 3 /hpf (0-2) 02/23/17 16:26 Urine WBC 1 - 3 /hpf (0-6) 02/23/17 16:26 Ur Epithelial Cells 3 - 4 /hpf (0-5) 02/23/17 16:26 Attending/Attestation - Attestation I have personally seen and examined this patient.: Yes I have fully participated in the care of the patient.: Yes I have reviewed all pertinent clinical information, including history, physical exam and plan: Yes Notes (Text): 02/24/17 15:40 61 year old female with past medical history of paroxysmal afib, mitral regurgitation, asthma, arthritis and hypertension who presented with complaint of intermittent chest pain and shortness of breath. CXR showed possible infiltrate however this was followed up with CT chest which was negative. Serial cardiac enzymes were negative and ACS was ruled out. Her symptoms improved. She was seen by cardiology and cleared for discharge to continue with her home medications, aspirin, cardizem and metoprolol. She also complained of right knee pain. Xray of the knee showed arthritis. Symptoms improved with motrin. Patient is discharged home to follow up with her pmd Dr. Guerra and cardiology. If worsening knee pain consider orthopedic or rheum eval as per pmd. Luis Enrique Escalante MD Hospitalist.
--- NOTE | 2017-02-25 11:22 | CON ---
DATE: 02/23/2017 CONSULTING PHYSICIAN: Dr. Brittany Beebe. REASON FOR CONSULTATION: Followup chest pain, shortness of breath, right knee pain, cardiac evaluation, history of cardiac catheterization, has normal coronaries, and severe mitral regurgitation. BRIEF CLINICAL HISTORY: This is a 61-year-old female with past medical history significant for severe mitral regurgitation, paroxysmal atrial fibrillation, asthma, COPD, status post cardiac catheterization,has normal coronaries, admitted with complaints of shortness of breath, mild chest discomfort and right knee pain. Denies any episode of chest pain. Denies any palpitation, but complaining of dyspnea on exertion and chest pain. The patient was offered for evaluation of open heart surgery, but the patient scared and does not want to come in. Now, the patient is determined to go for open heart surgery. PAST MEDICAL HISTORY: Significant for paroxysmal atrial fibrillation, mitral regurgitation, normal coronaries. PAST SURGICAL HISTORY: Significant for cholecystectomy, carpal tunnel syndrome and bunionectomy, removal of bunion from the foot. ALLERGIES: NO KNOWN DRUG ALLERGIES. SOCIAL HISTORY: Denies smoking. Denies any history of alcohol abuse. CURRENT MEDICATIONS: The patient is taking at home: Ibuprofen, enalapril 5 mg daily, atorvastatin 20 mg daily, propranolol 20 mg daily, albuterol sulfate 90 mcg daily, magnesium 400 mg daily, Cardizem 120 mg daily, metoprolol tartarate 25 mg twice a day, and aspirin 81 mg daily. REVIEW OF SYSTEMS: As per HPI. Previous cardiac workup as follows: The patient's last echocardiography on 10/26/2016, ejection fraction 55-60%, right ventricle mild to moderately dilated, RV systolic pressure mildly reduced, trace aortic regurgitation, severe mitral regurgitation, eccentric jet with anterior mitral valve pathology, moderate tricuspid regurgitation, RV systolic pressure of 39. History of cardiac catheterization on 02/05/2013 that showed eccentric normal coronaries, preserved LV function ejection fraction 65%,normal right sided pressure 3 to 4 mitral regurgitation, possibly severe. She is scheduled for MEDINA, but the patient did not show up in the past. Last stress test 01/26/2015 shows anemia, but essentially unchanged from 2012. After that the patient had a cardiac catheterization that revealed normal coronaries. The patient was scheduled multiple times for MEDINA, but the patient did not show up for MEDINA to assess the severity of the mitral valve. Last time, the patient admitted in 2016 for a very brief period of atrial fibrillation after being treated with Proventil, converted to normal sinus. Will be discharged on Cardizem CD 120 mg, Lopressor 25 mg b.i.d. and aspirin and scheduled for MEDINA for preoperation evaluation, but the patient did not show up. Now, the patient think that she will go for surgery. PHYSICAL EXAMINATION VITAL SIGNS: Temperature afebrile, heart rate 111, blood pressure 142/88. HEENT: PERRLA. Extraocular muscles intact. NECK: Supple. No carotid bruit or thyromegaly. CHEST: Clear to auscultation. HEART: S1 and S2 regular. Loud systolic murmur in the mitral area. ABDOMEN: Soft. EXTREMITIES: Clubbing and cyanosis negative. LABORATORY DATA: Blood workup as follows: WBC 4.2, hemoglobin 11.3, hematocrit 34.6, platelet count 254. Chemistry shows sodium 130, potassium 3.9, chloride 106, carbon dioxide 24, anion gap of 4, BUN 8, creatinine 0.9. Troponin 0.01 negative. EKG shows sinus tachycardia with APCs. Repeat EKG shows heart rate of 100. IMPRESSION: Severe mitral regurgitation, normal coronaries, status post cardiac catheterization, chronic obstructive pulmonary disease, possible atrial fibrillation. No evidence of acute myocardial infarction. No evidence of acute coronary artery syndrome. Troponin remains flat and negative. RECOMMENDATION: Okay to discharge. Need the patient to follow up MEDINA and possible cardiac catheterization as it was more than 2 to 3 years. Emphasis made with compliance of the medication as mentioned, the patient may need mitral valve to be repaired. The patient partially agreed and wanted to go home. We will discuss with Dr. Escalante. The patient will go home and will schedule outpatient to see and to set up for MEDINA and followup possible valve repair. Continue Cardizem CD 120 mg. Continue metoprolol. Continue atorvastatin. Continue enalapril. We will follow with you. Thank you, Dr. Escalante for providing me opportunity in taking care of the patient, Dariana Mcgregor. We will follow with you. Brittany Beebe MD cc: Dr. Escalante
== END 2017-02-24 12:21 | disposition home or self-care (01) ==
LOC: ED 11:39 → ERH 15:17 → 2RNO 22:21
PROVIDERS: ADMIT Internal Medicine; ATTEND Internal Medicine
DX: I10 Essential (primary) hypertension (principal); I48.0 Paroxysmal atrial fibrillation; M17.11 Unilateral primary osteoarthritis, right knee; Z87.891 Personal history of nicotine dependence; Z91.018 Allergy to other foods; R00.0 Tachycardia, unspecified; I51.7 Cardiomegaly; J45.909 Unspecified asthma, uncomplicated; Z90.49 Acquired absence of other specified parts of digestive tract; I08.3 Combined rheumatic disorders of mitral, aortic and tricuspid valves
CPT/HCPCS: 36415; 71010; 71250; 73560; 80053; 80061; 81001; 82550; 83615; 83880; 84484; 85025; 85027; 85610; 85730; 87040; 87086; 93005; 99285; G0378

== ENCOUNTER 2017-03-18 08:50 | Day surgery (SDC) | payer MEDICARE ==
[2017-03-14 08:04] VITALS: BMI 24.7
[2017-03-18] MEDS ORDERED: Midazolam 2 MG/2 ML VIAL ONE ×2 (12:18→12:37)
[2017-03-18] MEDS ORDERED: Naloxone 0.4 mg/ml Inj (Adult) ONE (12:18)
[2017-03-18] MEDS ORDERED: Flumazenil 0.1 mg/ml Inj (5ml) IVP ONE (12:18)
[2017-03-18] MEDS ORDERED: Midazolam 2 MG/2 ML VIAL IV ONE ×5 (12:24→12:37)
[2017-03-18] MEDS ORDERED: Sodium Chloride 0.9% 1,000 ML IV SCH (13:00)
[2017-03-18 13:53] VITALS: RESP 18; TEMP 98
[2017-03-18 15:09] VITALS: BP 137/72; PULSE 85; O2SAT 100
--- NOTE | 2017-03-18 22:34 | HP ---
REASON FOR ADMISSION: Transesophageal echo, has significant mitral regurgitation. BRIEF CLINICAL HISTORY: This is a 61-year-old female with past medical history significant for paroxysmal atrial fibrillation, mitral regurgitation, status post cardiac cath with normal coronaries, admitted electively for MEDINA to assess the significance of mitral regurg for possible mitral valve surgery, MV repair. Denies any chest pain, shortness of breath or any palpitation. PAST MEDICAL HISTORY: Significant for paroxysmal atrial fibrillation, mitral regurgitation, normal coronaries. PAST SURGICAL HISTORY: Significant for cholecystectomy, carpal tunnel syndrome and bunionectomy, removal of bunion from the foot. ALLERGIES: NO KNOWN DRUG ALLERGIES. SOCIAL HISTORY: Denies smoking. Denies any history of alcohol abuse. RECENT CARDIAC WORKUP: The patient had prior echo done that shows significant mitral regurgitation, history of cardiac catheterization in the past. PREVIOUS CARDIAC WORKUP: As follows, the patient had echocardiography on 10/26/2016, ejection fraction right ventricle [id number] dilated, RV systolic function moderately reduced, trace aortic regurgitation, severe mitral regurgitation, eccentric jet posteriorly directed posterior mitral valve pathology, moderate tricuspid regurgitation, RV systolic pressure of 39. History of cardiac catheterization on 02/05/2013 that shows normal coronaries, preserved LV function ejection fraction 65% and the patient had been earlier scheduled MEDINA 2-3 times that was canceled. The patient recently admitted to [facility] on 02/24/2017 and is scheduled for cardiac cath for MEDINA today. CURRENT MEDICATIONS: The patient is taking simvastatin 20 mg, cholestyramine, metoprolol tartarate 25 mg, enalapril 5 mg, Cardizem 180 mg, aspirin 81 mg, Protonix 40, hydroxyzine 25 mg daily. REVIEW OF SYSTEMS: As per HPI. PHYSICAL EXAMINATION: VITAL SIGNS: As follows, temperature afebrile, heart rate 79, blood pressure 114/74. HEENT: PERRLA. Extraocular muscles intact. NECK: Supple. No carotid bruit or thyromegaly. CHEST: Clear to auscultation. HEART: S1 and S2 regular. ABDOMEN: Soft. EXTREMITIES: Clubbing and cyanosis negative. LABORATORY DATA: Blood workup not done. Last blood workup on 02/24/2017, WBC 4.2, hemoglobin 11.3, hematocrit 34.6, platelet count 254. Chemistry shows sodium 130, potassium 3.9, chloride 106, carbon dioxide 24, anion gap of 12, BUN 8, creatinine 0.9. Troponin at that time was negative. IMPRESSION: Severe mitral regurgitation, ordered the transesophageal echocardiography to assess significance of mitral regurgitation and need for mitral valve repair, history of hypertension, hyperlipidemia, paroxysmal atrial fibrillation. RECOMMENDATION: MEDINA. Further recommendation after MEDINA. We will follow with you. Thank you Dr. Escalante for providing me the opportunity in taking care of patient, Dariana Mcgregor. Brittany Beebe MD
--- NOTE | 2017-03-19 14:55 | DS ---
BRIEF CLINICAL HISTORY: This is a 61-year-old female with past medical history significant for severe mitral regurgitation, paroxysmal atrial fibrillation, admitted for MEDINA. MEDINA was attempted. A total 5 mg of Versed was given and 150 mcg of fentanyl was given, and multiple attempts were made for the MEIDNA. The patient pulled the tube three times, (while probe was going into the esophagus), so the procedure was aborted to prevent injury to the esophagus. The patient was bending herself and making posturing as well as pulling the tube, so we decided to abort the procedure and refer the patient for evaluation for mitral valve repair and do the MEDINA if needed under anesthesia. FINAL DIAGNOSES: Mitral regurgitation, paroxysmal atrial fibrillation, hypertension, hyperlipidemia. PRINCIPAL PROCEDURES DONE: MEDINA was attempted, unsuccessful because the patient pulled the tube 3 times. Brittany Beebe MD cc:
== END 2017-03-18 15:45 | disposition home or self-care (01) ==
LOC: TEE 08:50
PROVIDERS: ATTEND Internal Medicine Cardiovascular Disease
DX: I34.0 Nonrheumatic mitral (valve) insufficiency (principal); I48.0 Paroxysmal atrial fibrillation; I10 Essential (primary) hypertension; E78.5 Hyperlipidemia, unspecified; G56.00 Carpal tunnel syndrome, unspecified upper limb
CPT/HCPCS: 93312; J2250; J3010; J7040 ×2

== ENCOUNTER 2017-05-12 16:54 | Inpatient (IN) | payer OTHER ==
[2017-05-12] MEDS ORDERED: MENTHOL PO PRN (17:19)
[2017-05-12] MEDS ORDERED: BENZOCAINE PO PRN (17:19)
[2017-05-12 17:21] VITALS: BMI 26.2
[2017-05-12] MEDS ORDERED: HYPROMELLOSE BOTHEYES SCH (17:30)
[2017-05-12] MEDS ORDERED: DEXTRAN BOTHEYES SCH (17:30)
[2017-05-12] MEDS ORDERED: Non Formulary Medication (Cholecalciferol (Vitamin D3) [Vitamin D3] 50,000 UNIT) PO SCH (17:30)
[2017-05-12] MEDS ORDERED: Levalbuterol 0.63 MG/3 ML Inhal Soln UD IH PRN (17:54)
[2017-05-12] MEDS ORDERED: Cefepime 1gm in NS 100ml 1 GM/100 ML BAG IVPB SCH (18:00)
[2017-05-12] MEDS ORDERED: Ergocalciferol 50,000 Intl Units Cap PO SCH (18:30)
[2017-05-12] MEDS: Aritificial Tears (15ml) OU SCH ×2 (19:00→21:13)
[2017-05-12] MEDS: guaiFENesin 600 mg ER Tab PO SCH (19:00)
[2017-05-12] MEDS: Oxycodone/Acetaminophen 5/325 mg Tab PO PRN ×2 (19:24→23:42)
[2017-05-12] MEDS: Albuterol-Ipratrop 3 mg / 0.5 (3 ml) UD IH SCH (19:40)
[2017-05-12] MEDS: Acetylcysteine 20% Inhal Soln (4ml) IH SCH (19:40)
[2017-05-12] MEDS: Aritificial Tears (15ml) OP SCH (21:13)
[2017-05-12] MEDS: MethylPREDNISolone 40 mg Vial IVP SCH (21:24)
[2017-05-12] MEDS: Benzocaine/Menthol (Cepacol) Lozenge MT PRN (21:32)
[2017-05-13] MEDS: Acetylcysteine 20% Inhal Soln (4ml) IH SCH ×4 (01:06→20:10)
[2017-05-13] MEDS: Albuterol-Ipratrop 3 mg / 0.5 (3 ml) UD IH SCH ×4 (01:07→20:11)
[2017-05-13] MEDS: Aritificial Tears (15ml) OP SCH ×6 (02:22→20:00)
[2017-05-13] MEDS: Aritificial Tears (15ml) OU SCH ×6 (02:22→21:23)
[2017-05-13] MEDS ORDERED: Cefepime 1gm in NS 100ml 1 GM/100 ML BAG IVPB SCH (06:00)
[2017-05-13] MEDS ORDERED: Pantoprazole 20 mg EC Tab PO SCH (06:00)
[2017-05-13] MEDS ORDERED: Pantoprazole 40 mg EC Tab PO SCH (06:41)
[2017-05-13 07:53] LABS: GRAN # 8.49 (1.4-6.5); GRAN % 85.8 % (50.0-68.0); HEMATOCRIT 25.1 % (36.0-48.0); LYMPH # 0.7 (1.2-3.4); LYMPH % 7.3 % (22.0-35.0); MEAN CELL VOLUME 89.6 fl (80.0-105.0); MEAN CORPUSCULAR HEMOGLOBIN 29.6 pg (25.0-35.0); MEAN CORPUSCULAR HGB CONC 33.1 g/dl (31.0-37.0); MEAN PLATELET VOLUME 8.4 fl (7.0-11.0); MONO # 0.7 (0.1-0.6); MONO % 6.9 % (1.0-6.0); RED CELL DISTRIBUTION WIDTH 14.5 % (11.5-14.5); WHITE BLOOD COUNT 9.9 10^3/ul (4.5-11.0)
[2017-05-13 08:03] LABS: ALB/GLOB RATIO 0.9 (1.1-1.8); ALKALINE PHOSPHATASE 113 U/L (38-126); ALT/SGPT 41 U/L (7-56); AST/SGOT 32 U/L (14-36); BILIRUBIN,TOTAL 0.4 mg/dL (0.2-1.3); BLOOD UREA NITROGEN 28 mg/dL (7-21); CALCIUM 9.2 mg/dL (8.4-10.5); CARBON DIOXIDE 29 mmol/L (21-33); CHLORIDE 105 mmol/L (95-110); GFR AFRICAN-AMERICAN > 60; GLUCOSE,RANDOM 190 mg/dL (70-110); POTASSIUM 4.1 mmol/L (3.6-5.0); SODIUM 139 mmol/L (132-148); TOTAL PROTEIN 6.3 g/dL (5.8-8.3)
[2017-05-13 08:08] LABS: INR 4.34 (0.93-1.08)
[2017-05-13 08:26] LABS: IRON 38 ug/dL (45-180)
[2017-05-13] MEDS: Potassium Chloride 20 mEq ER Tab PO SCH (08:26)
[2017-05-13] MEDS: guaiFENesin 600 mg ER Tab PO SCH ×2 (10:10→17:22)
[2017-05-13] MEDS: MethylPREDNISolone 40 mg Vial IVP SCH (10:11)
--- NOTE | 2017-05-13 11:01 | CP.PCM.CON ---
History of Present Illness - History of Present Illness History of Present Illness: Heme/Onc Consult Note for Daniel Mtz PGY2 Reason for consult: Anemia This is a 62yo female with past medical history of HTN, hyperlipidemia, atrial fibrillation, severe mitral valve regurgitation from history of mitral valve prolapse with recent mitral valve replacement at [facility] on 05/04/17 who was admitted for cough and shortness of breath. Patient was sent from [facility] for rehabilitation felt chest pain when coughing and shortness of breath. CXR in ED showed severe cardiomegaly with possible pneumonia. Patient was treated for pneumonia empirically. An echo was done which did not show vegetations or abnormalities of the new valve and EF was 52%. Patient was also found to have anemia upon admission. Upon examination , patient reports having some chest soreness when she coughs. She reports coughing up clear mucus. She denies having dark colored stool, blood in stool, hematuria or any vaginal bleeding. She denies shortness of breath, nausea, vomiting, diarrhea, constipation, fever or chills. Past medical history: HTN, hyperlipidemia, atrial fibrillation, severe mitral valve regurgitation from history of mitral valve prolapse Past surgical history: open heart surgery with mitral valve replacement ( bioprosthetic), cholecystectomy, carpal tunnel repair, bunionectomy Home meds: As per MAR Allergies: no known drug allergies, allergies to altoids and unknown food Social history: Denies EtOH, drug or tobacco use Review of Systems - Review of Systems All systems: reviewed and no additional remarkable complaints except Review of Systems: + cough, pleuritic chest pain Past Patient History - Infectious Disease Hx of Infectious Diseases: None - Tetanus Immunizations Tetanus Immunization: Unknown - Past Social History Smoking Status: Never Smoked Alcohol: None Drugs: Denies - CARDIAC Hx Cardiac Disorders: Yes Hx Pacemaker: No Other/Comment: Mitral Valve Replacement - PULMONARY Hx Respiratory Disorders: Yes Hx Asthma: Yes Hx Chronic Obstructive Pulmonary Disease (COPD): Yes - NEUROLOGICAL Hx Neurological Disorder: Yes Hx Dizziness: Yes Hx Migraine: Yes - HEENT Hx HEENT Problems: No - RENAL Hx Chronic Kidney Disease: No - ENDOCRINE/METABOLIC Hx Endocrine Disorders: No - HEMATOLOGICAL/ONCOLOGICAL Hx Blood Disorders: No - INTEGUMENTARY Hx Dermatological Problems: No - MUSCULOSKELETAL/RHEUMATOLOGICAL Hx Falls: No - GASTROINTESTINAL Hx Gastrointestinal Disorders: No - GENITOURINARY/GYNECOLOGICAL Hx Genitourinary Disorders: No - PSYCHIATRIC Hx Emotional Abuse: No Hx Physical Abuse: No - SURGICAL HISTORY Other/Comment: Mitral Valve Replacement - ANESTHESIA Hx Anesthesia: Yes Hx Anesthesia Reactions: No Hx Malignant Hyperthermia: No Meds Allergies/Adverse Reactions: Allergies Allergy/AdvReac Type Severity Reaction Status Date / Time ALTOIDS Allergy Intermediate SWELLING Uncoded 05/12/17 17:20 FACE/LIPS UNKNOWN FOOD Allergy Intermediate SWELLING Uncoded 05/12/17 17:20 FACE/LIPS - Medications Medications: Current Medications Acetylcysteine (Acetylcysteine 20%) 2 ml IH Q6 GUALBERTO PRN Reason: Protocol Last Admin: 05/13/17 07:23 Dose: 2 ml Albuterol/Ipratropium (Duoneb 3 Mg/0.5 Mg (3 Ml) Ud) 3 ml IH [id number] GUALBERTO PRN Reason: Protocol Last Admin: 05/13/17 07:23 Dose: 3 ml Artificial Tears (Artificial Tears) 0 ml OU Q4H GUALBERTO PRN Reason: Protocol Last Admin: 05/13/17 10:05 Dose: 1 drop Artificial Tears (Artificial Tears) 0 ml OP Q4 GUALBERTO Last Admin: 05/13/17 08:27 Dose: 1 drop Aspirin (Ecotrin) 81 mg PO DAILY GUALBERTO PRN Reason: Protocol Last Admin: 05/13/17 10:10 Dose: 81 mg Atorvastatin Calcium (Lipitor) 10 mg PO HS GUALBERTO PRN Reason: Protocol Last Admin: 05/12/17 21:24 Dose: 10 mg Benzocaine/Menthol (Cepacol Sore Throat) 1 flower MT Q2 PRN PRN Reason: Sore Throat Last Admin: 05/12/17 21:32 Dose: 1 flower Bisacodyl (Dulcolax) 10 mg ND DAILY PRN; Protocol PRN Reason: Constipation Carvedilol (Coreg) 6.25 mg PO BID GUALBERTO PRN Reason: Protocol Last Admin: 05/13/17 10:06 Dose: 6.25 mg Colchicine (Colocrys) 0.6 mg PO DAILY GUALBERTO PRN Reason: Protocol Last Admin: 05/13/17 10:06 Dose: 0.6 mg Diphenhydramine HCl (Benadryl) 25 mg PO HS PRN; Protocol PRN Reason: Insomnia Last Admin: 05/12/17 21:26 Dose: 25 mg Doxycycline Hyclate (Doryx) 100 mg PO Q12 GUALBERTO PRN Reason: Protocol Stop: 05/18/17 22:01 Last Admin: 05/13/17 10:10 Dose: 100 mg Ergocalciferol (Drisdol 50,000 Intl Units Cap) 1 cap PO Q7D GUALBERTO PRN Reason: Protocol Furosemide (Lasix) 40 mg PO BID GUALBERTO PRN Reason: Protocol Last Admin: 05/13/17 10:10 Dose: 40 mg Guaifenesin (Mucinex La) 600 mg PO BID GUALBERTO PRN Reason: Protocol Last Admin: 05/13/17 10:10 Dose: 600 mg Hydroxyzine HCl (Atarax) 25 mg PO Q6H PRN; Protocol PRN Reason: Allergy symptoms Cefepime HCl (Maxipime 1gm) 1 gm in 100 mls @ 100 mls/hr IVPB Q24H GUALBERTO PRN Reason: Protocol Last Admin: 05/13/17 05:44 Dose: 100 mls/hr Levalbuterol HCl (Xopenex) 0.63 mg IH [id number] PRN; Protocol PRN Reason: Shortness of Breath Lisinopril (Zestril) 5 mg PO DAILY GUALBERTO PRN Reason: Protocol Last Admin: 05/13/17 10:11 Dose: 5 mg Loratadine (Claritin) 10 mg PO DAILY GUALBERTO PRN Reason: Protocol Last Admin: 05/13/17 10:06 Dose: 10 mg Methylprednisolone (Solu-Medrol) 40 mg IVP Q12 GUALBERTO PRN Reason: Protocol Last Admin: 05/13/17 10:11 Dose: 40 mg Montelukast Sodium (Singulair) 10 mg PO HS GUALBERTO PRN Reason: Protocol Last Admin: 05/12/17 21:25 Dose: 10 mg Oxycodone/Acetaminophen (Percocet 5/325 Mg Tab) 1 tab PO Q4H PRN; Protocol PRN Reason: Pain, moderate (4-7) Stop: 05/15/17 19:16 Last Admin: 05/12/17 23:42 Dose: 1 tab Pantoprazole Sodium (Protonix Ec Tab) 40 mg PO 0600 GUALBERTO PRN Reason: Protocol Potassium Chloride (K-Dur 20 Meq Er Tab) 20 meq PO BRK GUALBERTO PRN Reason: Protocol Last Admin: 05/13/17 08:26 Dose: 20 meq Physical Exam - Constitutional Appears: No Acute Distress - Head Exam Head Exam: ATRAUMATIC, NORMAL INSPECTION, NORMOCEPHALIC - Eye Exam Eye Exam: Normal appearance, PERRL Pupil Exam: NORMAL ACCOMODATION - ENT Exam ENT Exam: Mucous Membranes Moist - Respiratory Exam Respiratory Exam: Clear to Auscultation Bilateral, NORMAL BREATHING PATTERN. absent: Rales, Rhonchi, Wheezes - Cardiovascular Exam Cardiovascular Exam: REGULAR RHYTHM, +S1, +S2. absent: Gallop, Rubs, Systolic Murmur Additional comments: midline sternal scar clean and dry - GI/Abdominal Exam GI & Abdominal Exam: Normal Bowel Sounds, Soft. absent: Rebound, Rigid, Tenderness - Extremities Exam Extremities exam: Positive for: normal inspection. Negative for: calf tenderness, pedal edema - Neurological Exam Neurological exam: Alert, CN II-XII Intact, Oriented x3 - Psychiatric Exam Psychiatric exam: Normal Affect, Normal Mood - Skin Skin Exam: Dry, Warm Results - Vital Signs Recent Vital Signs: Last Vital Signs Temp 97.6 F 05/12/17 18:12 Pulse 68 05/12/17 18:12 Resp 20 05/12/17 18:12 BP 118/78 05/13/17 10:11 Pulse Ox - Labs Result Diagrams: 05/13/17 07:48 05/13/17 07:48 Labs: Laboratory Results - last 24 hr 05/13/17 05/13/17 05/13/17 07:48 07:48 07:48 WBC 9.9 RBC 2.80 L Hgb 8.3 L Hct 25.1 L MCV 89.6 MCH 29.6 MCHC 33.1 RDW 14.5 Plt Count 524 H MPV 8.4 Gran % 85.8 H Lymph % (Auto) 7.3 L [place] % (Auto) 6.9 H Eos % (Auto) 0.0 L Baso % (Auto) 0.0 Gran # 8.49 H Lymph # 0.7 L [place] # 0.7 H Eos # 0.0 Baso # 0.00 PT 49.2 H INR 4.34 H* Sodium 139 Potassium 4.1 Chloride 105 Carbon Dioxide 29 Anion Gap 9 L BUN 28 H Creatinine 1.1 Est GFR ( Amer) > 60 Est GFR (Non-Af Amer) 50 Random Glucose 190 H Calcium 9.2 Iron TIBC % Saturation Total Bilirubin 0.4 AST 32 ALT 41 Alkaline Phosphatase 113 Total Protein 6.3 Albumin 2.9 L Globulin 3.3 Albumin/Globulin Ratio 0.9 L 05/13/17 07:48 WBC RBC Hgb Hct MCV MCH MCHC RDW Plt Count MPV Gran % Lymph % (Auto) [place] % (Auto) Eos % (Auto) Baso % (Auto) Gran # Lymph # [place] # Eos # Baso # PT INR Sodium Potassium Chloride Carbon Dioxide Anion Gap BUN Creatinine Est GFR ( Amer) Est GFR (Non-Af Amer) Random Glucose Calcium Iron 38 L TIBC 226 L % Saturation 17 L Total Bilirubin AST ALT Alkaline Phosphatase Total Protein Albumin Globulin Albumin/Globulin Ratio Assessment & Plan - Assessment and Plan (Free Text) Assessment: This is a 62yo female with past medical history of HTN, hyperlipidemia, atrial fibrillation, severe mitral valve regurgitation from history of mitral valve prolapse with recent mitral valve replacement ( bioprosthetic valve) at [facility] on 05/04/17 who was admitted for cough and shortness of breath. Patient was found to have acute on chronic decompensated CHF secondary to recent mitral valve replacement surgery (POD#8) and pneumonia who was transferred to TCU for further strengthening. Patient was found to have anemia on admission. She was placed on Coumadin with supratherapeutic INR without overt signs of bleeding. Patient is also noted to have mild thrombocytosis as well. Anemia can be secondary to blood loss from surgery versus blood loss from elevated INR (unlikely). Thrombocytosis can be reactive from surgery versus iron deficiency anemia. With elevated thrombocytosis >600, patient can be at risk for small strokes. Plan: - Iron studies showed low Iron, TIBC and % saturation - Ferritin pending - Continue to monitor INR- trending down (goal INR is between 2-3) - Continue to hold Coumadin - Continue ASA - Will obtain stool occult - Will start patient on Venofer 200mg x 3. Case seen, discussed and reviewed with Dr. Jimenez. Daniel Fragoso PGY2 - Date & Time Date: 05/13/17 Time: 11:11
--- NOTE | 2017-05-13 19:59 | CP.PCM.CON ---
History of Present Illness - History of Present Illness History of Present Illness: 1 year old female with PMH of atrial fibrillation, asthma, HTN, severe mitral regurgitation S/P mitral valve replacement, esophageal ulcers, carpal tunnel syndrome, COPD, dyslipidemia, S/P cholecystectomy, S/P foot surgery came in to [facility] because of generalized weakness and cough and was found to be in congestive heart failure. Pneumonia could not be ruled out either and the patient is also being treated for this. She has been doing well and is now transferred to [facility] for continued medical therapy and physical therapy. Infectious Diseases consult is requested to continue her antibiotic therapy. She denies fever or chills, no nausea or vomiting, no chest pain, no SOB at rest, no abdominal pain , no diarrhea, no dysuria. Review of Systems - Review of Systems All systems: reviewed and no additional remarkable complaints except (as per HPI ) Past Patient History - Infectious Disease Hx of Infectious Diseases: None - Tetanus Immunizations Tetanus Immunization: Unknown - Past Social History Smoking Status: Never Smoked - CARDIAC Hx Cardiac Disorders: Yes Hx Pacemaker: No Other/Comment: Mitral Valve Replacement - PULMONARY Hx Respiratory Disorders: Yes Hx Asthma: Yes Hx Chronic Obstructive Pulmonary Disease (COPD): Yes - NEUROLOGICAL Hx Neurological Disorder: Yes Hx Dizziness: Yes Hx Migraine: Yes - HEENT Hx HEENT Problems: No - RENAL Hx Chronic Kidney Disease: No - ENDOCRINE/METABOLIC Hx Endocrine Disorders: No - HEMATOLOGICAL/ONCOLOGICAL Hx Blood Disorders: No - INTEGUMENTARY Hx Dermatological Problems: No - MUSCULOSKELETAL/RHEUMATOLOGICAL Hx Falls: No - GASTROINTESTINAL Hx Gastrointestinal Disorders: No - GENITOURINARY/GYNECOLOGICAL Hx Genitourinary Disorders: No - PSYCHIATRIC Hx Emotional Abuse: No Hx Physical Abuse: No - SURGICAL HISTORY Other/Comment: Mitral Valve Replacement - ANESTHESIA Hx Anesthesia: Yes Hx Anesthesia Reactions: No Hx Malignant Hyperthermia: No Meds Allergies/Adverse Reactions: Allergies Allergy/AdvReac Type Severity Reaction Status Date / Time ALTOIDS Allergy Intermediate SWELLING Uncoded 05/12/17 17:20 FACE/LIPS UNKNOWN FOOD Allergy Intermediate SWELLING Uncoded 05/12/17 17:20 FACE/LIPS - Medications Medications: Current Medications Acetylcysteine (Acetylcysteine 20%) 2 ml IH Q6 GUALBERTO PRN Reason: Protocol Last Admin: 05/13/17 01:06 Dose: 2 ml Albuterol/Ipratropium (Duoneb 3 Mg/0.5 Mg (3 Ml) Ud) 3 ml IH [id number] GUALBERTO PRN Reason: Protocol Last Admin: 05/13/17 01:07 Dose: 3 ml Artificial Tears (Artificial Tears) 0 ml OU Q4H GUALBERTO PRN Reason: Protocol Last Admin: 05/13/17 02:22 Dose: Not Given Artificial Tears (Artificial Tears) 0 ml OP Q4 GUALBERTO Last Admin: 05/13/17 02:22 Dose: Not Given Aspirin (Ecotrin) 81 mg PO DAILY GUALBERTO PRN Reason: Protocol Atorvastatin Calcium (Lipitor) 10 mg PO HS GUALBERTO PRN Reason: Protocol Last Admin: 05/12/17 21:24 Dose: 10 mg Benzocaine/Menthol (Cepacol Sore Throat) 1 flower MT Q2 PRN PRN Reason: Sore Throat Last Admin: 05/12/17 21:32 Dose: 1 flower Bisacodyl (Dulcolax) 10 mg MS DAILY PRN; Protocol PRN Reason: Constipation Carvedilol (Coreg) 6.25 mg PO BID GUALBERTO PRN Reason: Protocol Last Admin: 05/12/17 19:00 Dose: 6.25 mg Colchicine (Colocrys) 0.6 mg PO DAILY GUALBERTO PRN Reason: Protocol Diphenhydramine HCl (Benadryl) 25 mg PO HS PRN; Protocol PRN Reason: Insomnia Last Admin: 05/12/17 21:26 Dose: 25 mg Doxycycline Hyclate (Doryx) 100 mg PO Q12 GUALBERTO PRN Reason: Protocol Stop: 05/18/17 22:01 Last Admin: 05/12/17 21:24 Dose: 100 mg Ergocalciferol (Drisdol 50,000 Intl Units Cap) 1 cap PO Q7D GUALBERTO PRN Reason: Protocol Furosemide (Lasix) 40 mg PO BID GUALBERTO PRN Reason: Protocol Last Admin: 05/12/17 19:00 Dose: 40 mg Guaifenesin (Mucinex La) 600 mg PO BID GUALBERTO PRN Reason: Protocol Last Admin: 05/12/17 19:00 Dose: 600 mg Hydroxyzine HCl (Atarax) 25 mg PO Q6H PRN; Protocol PRN Reason: Allergy symptoms Cefepime HCl (Maxipime 1gm) 1 gm in 100 mls @ 100 mls/hr IVPB Q24H GUALBERTO PRN Reason: Protocol Last Admin: 05/13/17 05:44 Dose: 100 mls/hr Levalbuterol HCl (Xopenex) 0.63 mg IH [id number] PRN; Protocol PRN Reason: Shortness of Breath Lisinopril (Zestril) 5 mg PO DAILY GUALBERTO PRN Reason: Protocol Loratadine (Claritin) 10 mg PO DAILY GUALBERTO PRN Reason: Protocol Methylprednisolone (Solu-Medrol) 40 mg IVP Q12 GUALBERTO PRN Reason: Protocol Last Admin: 05/12/17 21:24 Dose: 40 mg Montelukast Sodium (Singulair) 10 mg PO HS GUALBERTO PRN Reason: Protocol Last Admin: 05/12/17 21:25 Dose: 10 mg Oxycodone/Acetaminophen (Percocet 5/325 Mg Tab) 1 tab PO Q4H PRN; Protocol PRN Reason: Pain, moderate (4-7) Stop: 05/15/17 19:16 Last Admin: 05/12/17 23:42 Dose: 1 tab Pantoprazole Sodium (Protonix Ec Tab) 40 mg PO DAILY GUALBERTO PRN Reason: Protocol Potassium Chloride (K-Dur 20 Meq Er Tab) 20 meq PO BRK GUALBERTO PRN Reason: Protocol Physical Exam - Constitutional Appears: Non-toxic, No Acute Distress - Head Exam Head Exam: NORMAL INSPECTION - Neck Exam Neck exam: Negative for: Meningismus - Respiratory Exam Respiratory Exam: Decreased Breath Sounds - Cardiovascular Exam Cardiovascular Exam: +S1, +S2 - GI/Abdominal Exam GI & Abdominal Exam: Soft. absent: Tenderness Results - Vital Signs Recent Vital Signs: Last Vital Signs Temp 97.6 F 05/12/17 18:12 Pulse 68 05/12/17 18:12 Resp 20 05/12/17 18:12 BP 122/76 05/12/17 19:00 Pulse Ox - Labs Result Diagrams: 05/13/17 07:48 05/13/17 07:48 Assessment & Plan - Assessment and Plan (Free Text) Plan: Assessment sytemic inflammatory response syndrome, consider due to congestive heart failure , R/O HCAP severe mitral regurgitation S/P mitral valve replacement atrial fibrillation asthma HTN esophageal ulcers carpal tunnel syndrome COPD dyslipidemia atrial fibrillation S/P cholecystectomy S/P foot surgery Plan sputum cx only showing normal oral hong; PCT is low; continue Doxycycline day 5 - continue for 2-4 more days will continue to follow clinically
--- NOTE | 2017-05-13 20:31 | PN ---
DATE: 05/13/2017 SUBJECTIVE: The patient is seen lying in bed. She is awake and alert. She is comfortable. She complains of cough. She complains of whitish phlegm. She denies any shortness of breath, she denies any fevers. PHYSICAL EXAMINATION GENERAL: Middle-aged lady sitting in bed. VITAL SIGNS: Blood pressure 118/78, heart rate 68, respiratory rate 20 and temperature 97.6. HEENT: Normocephalic and atraumatic. NECK: Supple, no JVD. LUNGS: Bilateral equal entry, no rales. CARDIAC: S1 and S2, regular rate and rhythm, no murmur, no rub. ABDOMEN: Soft, nondistended, nontender, bowel sounds present. EXTREMITIES: No lower extremity edema. INTAKE AND OUTPUT: Not charted. LABORATORY DATA: WBC 9.9, hemoglobin 8.3, hematocrit 25 and platelets 524. Sodium 139, potassium 4.1, chloride 105, CO2 of 29, BUN 28, creatinine 1.1, glucose 190 and calcium 9.2. Iron saturation 17, iron 38 and ferritin 190. Albumin 2.9. MEDICATIONS: List reviewed. ASSESSMENT: 1. Resolved acute kidney injury. 2. Stable chronic kidney disease stage I/II. 3. Mild prerenal azotemia. 4. History of mitral valve replacement. 5. Left ventricular hypertrophy. 6. Paroxysmal atrial fibrillation. 7. History of anemia. PLAN: 1. Avoid nephrotoxins. 2. Intravenous Venofer. 3. Monitor labs closely. 4. Monitor H&H. 5. Continue physical therapy. Stacia Cornejo MD
[2017-05-13] MEDS: Oxycodone/Acetaminophen 5/325 mg Tab PO PRN (21:28)
[2017-05-13] MEDS: Benzocaine/Menthol (Cepacol) Lozenge MT PRN (21:29)
--- NOTE | 2017-05-13 23:30 | CON ---
DATE: 05/13/2017 LOCATION: The patient is in room 321, bed 1. REASON FOR CONSULTATION: Status post mitral valve bioprosthetic valve replacement, CHF, and paroxysmal atrial fibrillation. HISTORY OF PRESENT ILLNESS: A 62-year-old female with past medical history significant for severe mitral regurgitation, and chronic paroxysmal atrial fibrillation since last two years. The patient has history of mitral valve prolapse along with severe mitral regurgitation and two years ago she was told to have surgery, but she did not want to do it. Finally, she agreed and she recently had mitral valve replacement and status post continue to have paroxysmal atrial fibrillation. The patient was residential for this physical therapy, but the patient then started coughing with shortness of breath and was brought to the emergency room for respiratory tract infection and possible CHF. The patient treated medically on the floor. Now, she is in Transitional Care Unit for deconditioning and physical therapy. PAST MEDICAL HISTORY: Significant for paroxysmal atrial fibrillation, mitral valve prolapse, severe mitral regurgitation, status post mitral valve, bioprosthetic valve replacement. The patient's cardiac catheterization preop showed 50% LAD disease otherwise no significant coronary artery disease was seen and the patient has only mitral valve replacement surgery. The patient also known to have cholecystectomy, carpal tunnel surgery, bunionectomy, bioprosthetic mitral valve replacement was done, worked by [facility]. ALLERGIES: THE PATIENT DENIES ANY ALLERGIES. PERSONAL HISTORY: No history of smoking or alcohol abuse. MEDICATION: The patient's medications from [facility] post discharge included aspirin, oxycodone, albuterol inhaler, Coumadin 3 mg daily, carvedilol, and atorvastatin. REVIEW OF SYSTEMS: All other system reviewed, positive mentioned the history otherwise negative. PHYSICAL EXAMINATION: VITAL SIGNS: Blood pressure is 118/78, respiration 20 afebrile, pulse is 70 per minute. HEENT: Head is normocephalic. Eyes, pupil normal. Conjunctivae are pale. NECK: JVP low. Carotids equal. Thorax; AP diameter normal. Thorax has surgical scar. LUNGS: No significant rales. CARDIOVASCULAR: S1 and S2. ABDOMEN: Soft and nontender. No organomegaly. EXTREMITIES: No clubbing, no cyanosis. LABORATORY DATA: WBC 9.9, hemoglobin 8.3, hematocrit 25.1 and platelet 524. Sodium 139, potassium 4.1, BUN 28 and creatinine 1.1. AST and ALT normal. Total protein 6.3, albumin 2.9, prothrombin time 49.2, INR 4.34, which is elevated. DIAGNOSES: Decompensated congestive heart failure, acute and chronic secondary to recent postop IV fluid overload, diastolic dysfunction, history of paroxysmal atrial fibrillation, severe mitral regurgitation, status post mitral valve replacement, bioprosthetic mitral valve, hypertension, cough, possible pneumonia, and deconditioning. Chest x-ray on 05/10/2017 showed vascular congestion. EKG shows sinus rhythm, first degree AV block, left axis deviation, septal infarct age undetermined, and increased prothrombin time. PLAN: The patient is on carvedilol 6.25 mg b.i.d., colchicine 0.6 mg p.o. daily, Doryx 100 mg p.o. q. 12 hour, DuoNeb hand nebulizer therapy, aspirin 81 mg daily, Venofer IV therapy, furosemide 40 mg b.i.d., Lipitor 10 mg p.o. daily, Maxipime 1 g IV q. 24 hours, Protonix 40 mg daily, Singulair 10 mg at bedtime, Solu-Medrol 40 mg IV q. 12 hour, lisinopril 5 mg daily. The patient will have repeat PT/INR in the morning and we will follow closely. Brittany Rouse MD
[2017-05-14] MEDS: Acetylcysteine 20% Inhal Soln (4ml) IH SCH ×4 (01:38→20:16)
[2017-05-14] MEDS: Albuterol-Ipratrop 3 mg / 0.5 (3 ml) UD IH SCH ×4 (01:38→20:16)
[2017-05-14] MEDS: Aritificial Tears (15ml) OU SCH ×6 (01:41→21:04)
--- NOTE | 2017-05-14 03:18 | CON ---
PULMONARY CONSULTATION DATE: 05/13/2017 REFERRING PHYSICIAN: Baltazar Guerra MD REASON FOR CONSULT: Cough, shortness of breath. HISTORY OF PRESENT ILLNESS: This is a 62-year-old female known to me from *------*of the hospital with cough, shortness of breath, sputum production, treated with antibiotics and diuretics also, steroids and inhaled bronchodilators given, now admitted to TICU for continued care. Overall, she feels better. Still has some cough and shortness of breath. No nausea, no vomiting, diarrhea, leg pain or leg swelling. PAST MEDICAL HISTORY: Valvular heart disease status post valve repair, chronic obstructive lung disease, atrial fibrillation. ALLERGIES: TO SEAFOOD AND ALSO ALTOIDS. SOCIAL HISTORY: A few years ago, stopped smoking. Denied any alcohol use. FAMILY HISTORY: No significant cardiopulmonary disease reported. MEDICATIONS: She is on Mucomyst 20% 2 mL q. 6 hours, artificial tears q. 4 hours, Atarax 25 mg q. 6 hours p.r.n., Benadryl 25 mg at bedtime p.r.n, Cepacol lozenges q. 12 hours p.r.n., Claritin 10 mg daily, colchicine 0.6 mg daily, Coreg 6.25 mg twice a day,doxycycline 100 mg twice a day, vitamin D 50,000 units q. 7 days, Dulcolax suppository p.r.n. basis, DuoNeb q. 6 hours, Ecotrin 81 mg daily, iron sucrose 100 mg daily, potassium 20 mEq daily, Lasix 20 mg twice a day, Lipitor 10 mg at bedtime, Mucinex LA 600 mg twice a day, Percocet 5/325 one tablet q. 4 hours p.r.n., prednisone 30 mg daily, Protonix 40 mg daily, Singulair 10 mg daily, Xopenex inhaled q. 6 hours, Zestril 5 mg daily. REVIEW OF SYSTEMS: No headache. No rhinitis. Still have cough, shortness of breath. No nausea. No vomiting, diarrhea, leg pain or leg swelling. PHYSICAL EXAMINATION: GENERAL: Sitting up in a chair, in no acute distress. VITAL SIGNS: Temp is 98, heart rate is 104, respiratory rate is 20, blood pressure 136/89, pulse ox 93% on nasal cannula. HEENT: Moist mucous membranes. Crowded airway. Mallampati score is IV. NECK: Supple. No JVD. LUNGS: Have prolonged expiratory phase. Have scattered rhonchi. HEART: S1 and S2. ABDOMEN: Soft and nontender. No organomegaly. EXTREMITIES: There is no edema. NEUROLOGIC: Awake and alert. Follow simple commands. LABORATORY DATA: Shows hemoglobin 8.3, hematocrit 25.1, WBC 9.9, platelet count is 524. PTT is 4.34. Sodium 136, potassium 4.1, chloride 105, bicarbonate 29, BUN 28, creatinine 1.1, glucose 190, calcium is 9.2, iron is 38, ferritin is 190, AST 32, ALT 41, alkaline phosphatase is 113, albumin is 2.9, vitamin B12 is 741, folate is 10.8. IMPRESSION AND PLAN: Exacerbation of chronic obstructive lung disease, cardiomyopathy, pulmonary infiltrate, may have a sleep apnea syndrome, atrial fibrillation. Pulmonary point of view, doing okay. Continue p.r.n. inhaled bronchodilator. Gastric prophylaxis. Hold Coumadin. INR in the morning. Start therapy. Thank you, and we will follow with you. Brittany Arciniega MD
[2017-05-14] MEDS: Aritificial Tears (15ml) OP SCH ×6 (04:58→21:04)
[2017-05-14] MEDS: Pantoprazole 40 mg EC Tab PO SCH (06:40)
[2017-05-14 07:20] LABS: INR 3.21 (0.93-1.08)
[2017-05-14] MEDS: Potassium Chloride 20 mEq ER Tab PO SCH (08:00)
[2017-05-14] MEDS: guaiFENesin 600 mg ER Tab PO SCH ×2 (10:05→17:29)
[2017-05-14] MEDS: Multivitamin Therapeutic Tab PO SCH (11:45)
--- NOTE | 2017-05-14 12:04 | CP.PCM.PN ---
Subjective - Date & Time of Evaluation Date of Evaluation: 05/14/17 Time of Evaluation: 10:55 - Subjective Subjective: Comfortable, not in distress, no fevers. Objective - Vital Signs/Intake and Output Vital Signs (last 24 hours): Temp Pulse Resp BP Pulse Ox 98.1 F 104 H 20 136/89 93 L 05/13/17 16:00 05/13/17 16:00 05/13/17 16:00 05/13/17 17:22 05/13/17 16:00 - Medications Medications: Current Medications Acetylcysteine (Acetylcysteine 20%) 2 ml IH Q6 GUALBERTO PRN Reason: Protocol Last Admin: 05/14/17 01:38 Dose: 2 ml Albuterol/Ipratropium (Duoneb 3 Mg/0.5 Mg (3 Ml) Ud) 3 ml IH [id number] GUALBERTO PRN Reason: Protocol Last Admin: 05/14/17 01:38 Dose: 3 ml Artificial Tears (Artificial Tears) 0 ml OU Q4H GUALBERTO PRN Reason: Protocol Last Admin: 05/14/17 01:41 Dose: Not Given Artificial Tears (Artificial Tears) 0 ml OP Q4 GUALBERTO Last Admin: 05/14/17 04:58 Dose: Not Given Aspirin (Ecotrin) 81 mg PO DAILY GUALBERTO PRN Reason: Protocol Last Admin: 05/13/17 10:10 Dose: 81 mg Atorvastatin Calcium (Lipitor) 10 mg PO HS GUALBERTO PRN Reason: Protocol Last Admin: 05/13/17 21:24 Dose: 10 mg Benzocaine/Menthol (Cepacol Sore Throat) 1 flower MT Q2 PRN PRN Reason: Sore Throat Last Admin: 05/13/17 21:29 Dose: 1 flower Bisacodyl (Dulcolax) [address] DAILY PRN; Protocol PRN Reason: Constipation Carvedilol (Coreg) 6.25 mg PO BID GUALBERTO PRN Reason: Protocol Last Admin: 05/13/17 17:21 Dose: 6.25 mg Colchicine (Colocrys) 0.6 mg PO DAILY GUALBERTO PRN Reason: Protocol Last Admin: 05/13/17 10:06 Dose: 0.6 mg Diphenhydramine HCl (Benadryl) 25 mg PO HS PRN; Protocol PRN Reason: Insomnia Last Admin: 05/12/17 21:26 Dose: 25 mg Doxycycline Hyclate (Doryx) 100 mg PO Q12 GUALBERTO PRN Reason: Protocol Stop: 05/18/17 22:01 Last Admin: 05/13/17 21:24 Dose: 100 mg Ergocalciferol (Drisdol 50,000 Intl Units Cap) 1 cap PO Q7D GUALBERTO PRN Reason: Protocol Furosemide (Lasix) 40 mg PO BID GUALBERTO PRN Reason: Protocol Last Admin: 05/13/17 17:22 Dose: 40 mg Guaifenesin (Mucinex La) 600 mg PO BID GUALBERTO PRN Reason: Protocol Last Admin: 05/13/17 17:22 Dose: 600 mg Hydroxyzine HCl (Atarax) 25 mg PO Q6H PRN; Protocol PRN Reason: Allergy symptoms Iron Sucrose 200 mg/ Sodium (Chloride) 110 mls @ 110 mls/hr IVPB Q2D GUALBERTO Stop: 05/17/17 12:14 Last Admin: 05/13/17 11:36 Dose: 110 mls/hr Levalbuterol HCl (Xopenex) 0.63 mg IH [id number] PRN; Protocol PRN Reason: Shortness of Breath Lisinopril (Zestril) 5 mg PO DAILY GUALBERTO PRN Reason: Protocol Last Admin: 05/13/17 10:11 Dose: 5 mg Loratadine (Claritin) 10 mg PO DAILY GUALBERTO PRN Reason: Protocol Last Admin: 05/13/17 10:06 Dose: 10 mg Montelukast Sodium (Singulair) 10 mg PO HS GUALBERTO PRN Reason: Protocol Last Admin: 05/13/17 21:24 Dose: 10 mg Oxycodone/Acetaminophen (Percocet 5/325 Mg Tab) 1 tab PO Q4H PRN; Protocol PRN Reason: Pain, moderate (4-7) Stop: 05/15/17 19:16 Last Admin: 05/13/17 21:28 Dose: 1 tab Pantoprazole Sodium (Protonix Ec Tab) 40 mg PO 0600 GUALBERTO PRN Reason: Protocol Potassium Chloride (K-Dur 20 Meq Er Tab) 20 meq PO BRK GUALBERTO PRN Reason: Protocol Last Admin: 05/13/17 08:26 Dose: 20 meq Prednisone (Prednisone Tab) 30 mg PO DAILY GUALBERTO PRN Reason: Protocol - Labs Labs: 05/13/17 07:48 05/13/17 07:48 PT 49.2 SECONDS (9.4-12.5) H 05/13/17 07:48 INR 4.34 (0.93-1.08) H* 05/13/17 07:48 - Constitutional Appears: Non-toxic - Head Exam Head Exam: NORMAL INSPECTION - ENT Exam ENT Exam: Mucous Membranes Moist - Neck Exam Neck Exam: absent: Meningismus - Respiratory Exam Respiratory Exam: Decreased Breath Sounds - Cardiovascular Exam Cardiovascular Exam: +S1, +S2 - GI/Abdominal Exam GI & Abdominal Exam: Soft. absent: Tenderness Assessment and Plan - Assessment and Plan (Free Text) Plan: Assessment sytemic inflammatory response syndrome, consider due to congestive heart failure , R/O HCAP severe mitral regurgitation S/P mitral valve replacement atrial fibrillation asthma HTN esophageal ulcers carpal tunnel syndrome COPD dyslipidemia atrial fibrillation S/P cholecystectomy S/P foot surgery Plan sputum cx only showing normal oral hong; PCT is low; continue Doxycycline day 6 - continue for 1-3 more days will continue to follow clinically
--- NOTE | 2017-05-14 13:09 | PN ---
DATE: 05/14/2017 REASON FOR CONSULTATION: Followup status post mitral valve bioprosthetic replaced, history of paroxysmal atrial fibrillation, admitted with cough and shortness of breath postop from rehab facility. SUBJECTIVE: The patient denies any chest pain, shortness of breath or any palpitation, feels a lot better. PHYSICAL EXAMINATION: VITAL SIGNS: As follows; temperature afebrile, heart rate 91 and blood pressure 130/83. HEENT: PERRLA. Extraocular muscles intact. NECK: Supple. No carotid bruit or thyromegaly. CHEST: Clear to auscultation. HEART: S1 and S2 regular. ABDOMEN: Soft. EXTREMITIES: Clubbing and cyanosis negative. LABORATORY DATA: Blood workup as follows; WBC 9.9, hemoglobin 8.3, hematocrit 25.1, and platelet count 524. Chemistry shows sodium 139, potassium 4.1, chloride 105, carbon dioxide 29, anion gap of 9, BUN 28 and creatinine 1.1. IMPRESSION: A 62-year-old female with past medical history significant for severe mitral regurgitation for many years status post cardiac catheterization twice, nonobstructive coronary artery disease, preop evaluation, cardiac cath mid LAD 40% stenosis. He is status post mitral valve replacement bioprosthetic mitral valve, hypertension, cough, possible pneumonia, deconditioning of the body where recent EKG shows normal sinus rhythm and paroxysmal atrial fibrillation. RECOMMENDATIONS: Continue Coreg, continue colchicine, continue DuoNeb nebulizer treatment. Continue Lisinopril. INR is 3.21. When INR gets below 2.5, we will start anticoagulation. Right now, we will hold because of supratherapeutic INR. We will repeat INR tomorrow. If INR is below 2.5, we will start Coumadin. INR trend is down. It was 5.2 on 05/12/2017, now it is 3.2. We will repeat tomorrow. Brittany Beebe MD
--- NOTE | 2017-05-14 20:52 | PN ---
DATE: SUBJECTIVE: The patient is currently seen ambulating in the TCU. She has no specific complaints. Her creatinine levels down to 1.1 which is her baseline. The patient remains on oral diuretic therapy. The patient is noted to be significantly anemic. She is receiving IV iron for iron saturation of 17%. MEDICATIONS: Medication list reviewed. The patient is currently on acetylcysteine, Artificial Tears, Atarax, Benadryl, Cepacol, Claritin, colchicine, Coreg, doxycycline, vitamin D, Dulcolax, DuoNeb, Ecotrin, Feosol, IV iron, K-tabs, Lasix orally, Lipitor, Mucinex, Percocet p.r.n., prednisone, Protonix, Singulair, Thera tabs, Xopenex, and Zestril. OBJECTIVE: VITAL SIGNS: Blood pressure 125/78, temperature 97.4, respiratory rate 16 with a pulse of 81. HEENT: Normocephalic and atraumatic. Conjunctivae are pale. Sclerae are nonicteric. NECK: Supple. No neck vein distention. CHEST: Clear to auscultation and percussion. Scattered rhonchi. Slight decreased breath sounds at the bases. No rales. CARDIOVASCULAR: Normal S1 and S2. No audible murmurs, rubs or gallops. ABDOMEN: Soft. Bowel sounds normal. No rebound or guarding. No masses. EXTREMITIES: Show no cyanosis, clubbing or edema. LABORATORY DATA and IMAGING: No labs done today. Yesterday's CBC, white blood cell count 9.9, hemoglobin 8.2 with a platelet count of 524,000. Chemistries from yesterday showed normal electrolytes. BUN 28 with a creatinine of 1.1. Creatinine is back to baseline levels. Last glucose is 260. Iron saturations is 17%. Albumin is 2.9 with a calcium of 9.2. ASSESSMENT: 1. Slight elevation of BUN with a creatinine that is fallen back to baseline range. The patient was initially admitted with a diagnosis of congestive heart failure and possible pneumonia. The patient remains on steroid therapy and Lasix therapy as a consequence that her BUN remains slightly elevated. 2. Significant anemia. The patient is on oral and IV iron therapy. She should continue Venofer in the TCU. 3. History of borderline left ventricular hypertrophy with mild valvular heart disease, aortic insufficiency, aortic stenosis, mitral regurgitation with a prostatic mitral valve. 4. History of paroxysmal atrial fibrillation. The patient is on chronic anticoagulation. Coumadin is on hold for a PT of 36.21 and INR of 3.21. 5. No past history of chronic kidney disease. PLAN 1. Suggest continuing IV Venofer therapy to help improve her iron saturations and erase her severe anemia. 2. Complete a course of oral antibiotic therapy for possible pneumonia versus CHF. 3. When able try and wean the patient off of steroids which will help improve her BUN. 4. Agree with transfer to the TCU. The patient will continue rehabilitation in the TCU. Ayan Hernandez MD MTDD
[2017-05-14] MEDS: Oxycodone/Acetaminophen 5/325 mg Tab PO PRN (21:06)
--- NOTE | 2017-05-14 22:13 | PN ---
PULMONARY PROGRESS NOTE DATE: 05/14/2017 REFERRING PHYSICIAN: Baltazar Guerra MD SUBJECTIVE: She is sitting up in a chair, feels better, still has a cough, shortness of breath. No nausea or vomiting. No diarrhea. No leg pain or leg swelling. PHYSICAL EXAMINATION GENERAL: No acute distress. VITAL SIGNS: Temperature is 98, heart rate is 81, respiratory rate is 20, blood pressure 125/78 and pulse oximetry is 93% on nasal cannula. HEENT: Moist mucous membranes. Crowded airway. NECK: Supple. No JVD. LUNGS: Has expiratory rhonchi, overall fair airflow. HEART: S1 and S2. ABDOMEN: Soft and nontender. No organomegaly. EXTREMITIES: No edema. NEUROLOGIC: Awake and alert. Follows simple commands. MEDICATIONS: She is on Mucomyst 2 mL q.6 hours, artificial tears to both eyes q.4 hours, Atarax 25 mg q.6 hours p.r.n., Benadryl 25 mg at bedtime p.r.n., Cepacol lozenges q.2 hours p.r.n., Claritin 10 mg daily, colchicine 0.6 mg daily, Coreg 6.25 mg twice a day, doxycycline 100 mg twice a day, vitamin D 50,000 units subq q.7 days, Dulcolax 10 mg p.r.n., albuterol/Atrovent nebulizer q.6 hours around the clock, Ecotrin 81 mg daily, ferrous sulfate 324 mg 3 times a day, also getting IV sucrose, Lasix is at 40 mg twice a day, Lipitor 10 mg daily, Mucinex LA 600 mg twice a day, Percocet 5/325 one tablet q.4 hours p.r.n., prednisone 30 mg daily, Protonix 40 mg daily, multivitamins daily, Xopenex q.6 hours p.r.n. and Zestril 5 mg daily. LABORATORY DATA: Reviewed and shows today's INR is 3.21. Blood sugar is 260. IMPRESSION AND PLAN: Exacerbation of chronic obstructive lung disease, cardiomyopathy, pulmonary infiltrate, may have a sleep apnea syndrome, atrial fibrillation. Pulmonary point of view doing okay. Continue p.o. and inhaled bronchodilator. Gastric prophylaxis. Coumadin on hold. Followup INR. Thank you and we will follow with you. Brittany Arciniega MD [facility] # [id number]
[2017-05-15] MEDS: Aritificial Tears (15ml) OP SCH ×6 (00:44→22:14)
[2017-05-15] MEDS: Aritificial Tears (15ml) OU SCH ×4 (01:07→13:22)
[2017-05-15] MEDS: Pantoprazole 40 mg EC Tab PO SCH (05:49)
[2017-05-15 07:13] LABS: HEMATOCRIT 27.2 % (36.0-48.0); MEAN CELL VOLUME 89.8 fl (80.0-105.0); MEAN CORPUSCULAR HGB CONC 32.4 g/dl (31.0-37.0); MEAN PLATELET VOLUME 8.7 fl (7.0-11.0); RED CELL DISTRIBUTION WIDTH 14.8 % (11.5-14.5); WHITE BLOOD COUNT 10.6 10^3/ul (4.5-11.0)
[2017-05-15] MEDS: Acetylcysteine 20% Inhal Soln (4ml) IH SCH ×3 (07:21→20:34)
[2017-05-15] MEDS: Albuterol-Ipratrop 3 mg / 0.5 (3 ml) UD IH SCH ×3 (07:21→20:34)
[2017-05-15 07:24] LABS: INR 2.24 (0.93-1.08)
[2017-05-15 07:30] LABS: ALB/GLOB RATIO 0.9 (1.1-1.8); ALKALINE PHOSPHATASE 122 U/L (38-126); AST/SGOT 42 U/L (14-36); BLOOD UREA NITROGEN 26 mg/dL (7-21); CALCIUM 9.2 mg/dL (8.4-10.5); CARBON DIOXIDE 29 mmol/L (21-33); CHLORIDE 106 mmol/L (98-107); GFR AFRICAN-AMERICAN > 60; GLUCOSE,RANDOM 132 mg/dL (70-110); POTASSIUM 3.3 mmol/L (3.6-5.0); SODIUM 141 mmol/L (132-148); TOTAL PROTEIN 6.1 g/dL (5.8-8.3)
[2017-05-15 07:32] LABS: ALT/SGPT 35 U/L (7-56); BILIRUBIN,TOTAL 0.5 mg/dL (0.2-1.3); MAGNESIUM 1.2 mg/dL (1.7-2.2); PHOSPHOROUS 3.7 mg/dL (2.5-4.5)
[2017-05-15] MEDS: Potassium Chloride 20 mEq ER Tab PO SCH (07:56)
[2017-05-15] MEDS: Multivitamin Therapeutic Tab PO SCH (07:59)
[2017-05-15] MEDS ORDERED: Potassium Chloride 20 mEq ER Tab PO ONE (08:38)
--- NOTE | 2017-05-15 08:48 | HP ---
REASON FOR ADMISSION: 1. Generalized weakness. 2. Status post mitral valve replacement, needs physical therapy and also nosocomial infection, needs IV antibiotics. HISTORY OF PRESENT ILLNESS: This is a 62-year-old female was operated at [facility] for valve replacement. Patient's echo done on the valve, seems okay. She came in with symptoms of upper respiratory infections, cough, difficulty getting the sputum out, chest pain with cough and patient was admitted with nosocomial infections. She is seen by Pulmonary consult Dr. Arciniega, ID consult Dr. Valenzuela. Patient was having heavy and difficulty breathing, short of breath, could not stop coughing and she was feeling more weak. Patient admitted, given IV antibiotics. We will continue current antibiotics, chest CT, mucolytic agents Mucomyst, and continue current therapy in TCU plus physical therapy. She will be seen by the same consult as in TCU also. Patient denied any fever, any chills at this time and we will continue physical therapy and current IV medications as before. She also had anemia which IV iron, may be transfusions; however, her coronary artery was normal meaning no significant stenosis and may benefit at least from iron infusion. FAMILY HISTORY: Significant for hypertension, cardiac disease, otherwise negative. SOCIAL HISTORY: She does not smoke, does not drink. She lives by herself. REVIEW OF SYSTEMS: As in the present illness in addition to gouty arthritis. PAST MEDICAL AND SURGICAL HISTORY: As I mentioned, patient had valve replacement recently, she had severe mitral regurgitation before, dyspnea due to underlying COPD and also she had pseudogout arthritis, which is treated with colchicine and Naprosyn. She also had a couple of knee aspirations, steroid injections, she is overweight, hypertension, hypercholesterolemia. PHYSICAL EXAMINATION: VITAL SIGNS: Temperature 98, heart rate 91, blood pressure 133/83, saturation 93 liters, respirations 20 that is on room air. HEAD AND NECK: Normal. No JVD. No thyromegaly. CHEST: Few rales on the bases. CARDIAC: First sound and second sound normal. ABDOMEN: Soft, obese and nontender. EXTREMITIES: No edema. NEUROLOGIC: Normal. LABORATORY DATA: Her laboratory studies when she came in here, white count 9.9, hemoglobin 8.3, hematocrit 25.3 and platelets 545. PT/INR; INR 4.3 which is high. Chemistry noted for sodium 139, potassium 4.1, chloride 105, bicarb 79, BUN 28 and creatinine 1.1. Her iron studies shows low iron, low saturation, and low ferritin. Blood sugar 172. Patient is on IV steroids. Previous chest x-ray shows congestion consistent with congestive heart failure. IMPRESSION AND PLAN: 1. Acute respiratory infection, nosocomial, continue Maxipime and doxycycline. Continue chest CT and mucolytic agents, acetylcysteine or Mucomyst q. 6 hours. 2. Congestive heart failure, probably fluid overload or diastolic heart failure, continue Lasix. Patient feels better. 3. Hypercholesterolemia. 4. Hypertension. 5. Chronic anxiety. 6. Plan to continue Zestril, continue Lipitor, continue aspirin, followup clinically. 7. History of paroxysmal atrial fibrillation, status post valve replacement. Continue Coumadin. We will adjust Coumadin. Hold off on Coumadin today due to high INR and repeated in the morning. Continue current medications. Followup with other consultants. 8. Generalized weakness and deconditioning. Continue physical therapy and followup clinically. Baltazar Guerra MD
--- NOTE | 2017-05-15 09:39 | CP.PCM.PN ---
Subjective - Date & Time of Evaluation Date of Evaluation: 05/15/17 Time of Evaluation: 09:36 - Subjective Subjective: Heme/Onc Progress Note for Daniel Mtz PGY2 Patient seen and examined at bedside. As per nursing, there were no acute overnight events. Patient has been refusing IV access intermittently. She reports feeling well today. She denies chest pain, shortness of breath, nausea/ vomiting/diarrhea/constipation, fever/chills, dysuria or hematuria. Objective - Vital Signs/Intake and Output Vital Signs (last 24 hours): Temp Pulse Resp BP Pulse Ox 98 F 86 20 130/79 100 05/14/17 17:07 05/15/17 07:55 05/14/17 17:07 05/15/17 07:57 05/14/17 17:07 - Medications Medications: Current Medications Acetylcysteine (Acetylcysteine 20%) 2 ml IH Q6 GUALBERTO PRN Reason: Protocol Last Admin: 05/15/17 07:21 Dose: 2 ml Albuterol/Ipratropium (Duoneb 3 Mg/0.5 Mg (3 Ml) Ud) 3 ml IH [id number] GUALBERTO PRN Reason: Protocol Last Admin: 05/15/17 07:21 Dose: 3 ml Artificial Tears (Artificial Tears) 0 ml OU Q4H GUALBERTO PRN Reason: Protocol Last Admin: 05/15/17 05:49 Dose: Not Given Artificial Tears (Artificial Tears) 0 ml OP Q4 GUALBERTO Last Admin: 05/15/17 05:49 Dose: Not Given Aspirin (Ecotrin) 81 mg PO 0800 GUALBERTO PRN Reason: Protocol Last Admin: 05/15/17 07:56 Dose: 81 mg Atorvastatin Calcium (Lipitor) 10 mg PO HS GUALBERTO PRN Reason: Protocol Last Admin: 05/14/17 21:05 Dose: 10 mg Benzocaine/Menthol (Cepacol Sore Throat) 1 flower MT Q2 PRN PRN Reason: Sore Throat Last Admin: 05/13/17 21:29 Dose: 1 flower Bisacodyl (Dulcolax) 10 mg [place] DAILY PRN; Protocol PRN Reason: Constipation Carvedilol (Coreg) 6.25 mg PO 0800,1800 GUALBERTO PRN Reason: Protocol Last Admin: 05/15/17 07:55 Dose: 6.25 mg Colchicine (Colocrys) 0.6 mg PO DAILY GUALBERTO PRN Reason: Protocol Last Admin: 05/14/17 10:05 Dose: 0.6 mg Diphenhydramine HCl (Benadryl) 25 mg PO HS PRN; Protocol PRN Reason: Insomnia Last Admin: 05/12/17 21:26 Dose: 25 mg Doxycycline Hyclate (Doryx) 100 mg PO Q12 GUALBERTO PRN Reason: Protocol Stop: 05/18/17 22:01 Last Admin: 05/14/17 21:05 Dose: 100 mg Ergocalciferol (Drisdol 50,000 Intl Units Cap) 1 cap PO Q7D GUALBERTO PRN Reason: Protocol Ferrous Sulfate (Feosol) 324 mg PO TID GUALBERTO Last Admin: 05/14/17 17:28 Dose: 324 mg Furosemide (Lasix) 40 mg PO 0800,1800 GUALBERTO PRN Reason: Protocol Last Admin: 05/15/17 07:57 Dose: 40 mg Guaifenesin (Mucinex La) 600 mg PO BID GUALBERTO PRN Reason: Protocol Last Admin: 05/14/17 17:29 Dose: 600 mg Hydroxyzine HCl (Atarax) 25 mg PO Q6H PRN; Protocol PRN Reason: Allergy symptoms Iron Sucrose 200 mg/ Sodium (Chloride) 110 mls @ 110 mls/hr IVPB Q2D GUALBERTO Stop: 05/17/17 12:14 Last Admin: 05/13/17 11:36 Dose: 110 mls/hr Levalbuterol HCl (Xopenex) 0.63 mg IH [id number] PRN; Protocol PRN Reason: Shortness of Breath Lisinopril (Zestril) 5 mg PO DAILY GUALBERTO PRN Reason: Protocol Last Admin: 05/14/17 10:06 Dose: 5 mg Loratadine (Claritin) 10 mg PO DAILY GUALBERTO PRN Reason: Protocol Last Admin: 05/14/17 10:05 Dose: 10 mg Magnesium Oxide (Mag-Ox) 400 mg PO DAILY GUALBERTO Montelukast Sodium (Singulair) 10 mg PO HS GUALBERTO PRN Reason: Protocol Last Admin: 05/14/17 21:05 Dose: 10 mg Multivitamins (Thera Tab) 1 tab PO 0800 GUALBERTO Last Admin: 05/15/17 07:59 Dose: 1 tab Oxycodone/Acetaminophen (Percocet 5/325 Mg Tab) 1 tab PO Q4H PRN; Protocol PRN Reason: Pain, moderate (4-7) Stop: 05/15/17 19:16 Last Admin: 05/14/17 21:06 Dose: 1 tab Pantoprazole Sodium (Protonix Ec Tab) 40 mg PO 0600 GUALBERTO PRN Reason: Protocol Last Admin: 05/15/17 05:49 Dose: 40 mg Potassium Chloride (K-Dur 20 Meq Er Tab) 20 meq PO BRK GUALBERTO PRN Reason: Protocol Last Admin: 05/15/17 07:56 Dose: 20 meq Prednisone (Prednisone Tab) 30 mg PO 0800 GUALBERTO PRN Reason: Protocol Last Admin: 05/15/17 07:58 Dose: 30 mg Warfarin Sodium (Coumadin) 2 mg PO 1800 [facility] PRN Reason: Protocol - Labs Labs: 05/15/17 07:05 05/15/17 07:05 PT 25.1 SECONDS (9.4-12.5) H 05/15/17 07:05 INR 2.24 (0.93-1.08) H 05/15/17 07:05 - Constitutional Appears: No Acute Distress - Head Exam Head Exam: ATRAUMATIC, NORMAL INSPECTION, NORMOCEPHALIC - Eye Exam Eye Exam: Normal appearance, PERRL Pupil Exam: PERRL - ENT Exam ENT Exam: Mucous Membranes Moist - Respiratory Exam Respiratory Exam: Clear to Ausculation Bilateral, NORMAL BREATHING PATTERN. absent: Rales, Rhonchi, Wheezes - Cardiovascular Exam Cardiovascular Exam: REGULAR RHYTHM, +S1, +S2. absent: Gallop, Rubs, Murmur Additional comments: midline sternal scarring at previous surgical site - clean and dry - GI/Abdominal Exam GI & Abdominal Exam: Soft, Normal Bowel Sounds. absent: Rigid, Tenderness, Rebound - Extremities Exam Extremities Exam: Normal Inspection. absent: Calf Tenderness, Pedal Edema - Neurological Exam Neurological Exam: Alert, Awake, CN II-XII Intact, Oriented x3 - Skin Skin Exam: Dry, Warm Assessment and Plan - Assessment and Plan (Free Text) Assessment: This is a 62yo female with past medical history of HTN, hyperlipidemia, atrial fibrillation, severe mitral valve regurgitation from history of mitral valve prolapse with recent mitral valve replacement ( bioprosthetic valve) at [facility] on 05/04/17 who was admitted for cough and shortness of breath. Patient was found to have acute on chronic decompensated CHF secondary to recent mitral valve replacement surgery (POD#10) and pneumonia who was transferred to TCU for further strengthening. Patient was found to have anemia on admission. She was placed on Coumadin with supratherapeutic INR without overt signs of bleeding. Patient is also noted to have mild thrombocytosis as well. Anemia can be secondary to blood loss from surgery versus blood loss from elevated INR (unlikely). Thrombocytosis can be reactive from surgery versus iron deficiency anemia. With elevated thrombocytosis >600, patient can be at risk for small strokes. Plan: - Patient has limited IV access - Continue venofer if pt has access - Continue PO Iron with Dulcolax prn - Patient Hgb stable at 8.8- no overt signs of bleeding - Will set up patient to have outpatient transfusion of 2U PRBC with goal Hgb> 10. - INR now 2.4 which is therapeutic - Patient will restart Coumadin as per Cardiology with goal of 2-3 - Continue ASA Case seen, discussed and reviewed with Dr. Jimenez. Daniel Fragoso PGY2
[2017-05-15] MEDS: guaiFENesin 600 mg ER Tab PO SCH ×2 (09:54→17:21)
[2017-05-15] MEDS: Magnesium Oxide 400 mg Tab UD PO SCH (09:57)
--- NOTE | 2017-05-15 11:28 | PN ---
DATE: 05/14/2017 SUBJECTIVE: The patient has problem with IV access, could not get IV into her arm. Currently, she is on p.o. iron. She is on nebulizer treatment and her IV steroids were later changed to p.o. prednisone. She is better clinically. She is still having some cough associated with midline chest pain due to surgery. She is afebrile. No nausea. No vomiting. Her INR is elevated. We are going to hold the Coumadin and we will repeat the PT/INR in the morning. PHYSICAL EXAMINATION: VITAL SIGNS: Temperature 98, heart rate 90, blood pressure 116/78, respirations 20, and saturation 100%. HEAD/NECK: Normal. CHEST: Clear. CARDIAC: First sound and second sound normal. ABDOMEN: Soft, obese, and nontender. EXTREMITIES: No edema. NEUROLOGIC: Normal. LABORATORY DATA: The patient's laboratory studies on 05/14/2017 was noted for PT/INR, PT 36.2 and INR is 3.21. IMPRESSION AND PLAN: 1. Anemia, postoperative. We will continue iron. We will try to get IV access for IV iron, if not we will continue p.o. 2. Paroxysmal atrial fibrillation, status post mitral valve replacement, biologic valve, stable. Echocardiogram shows valve in the good position; no paravalvular leak and no pericardial effusion. We will continue Coumadin. INR repeated in the morning. 3. Nosocomial infections and respiratory infections. We will continue current therapy. We will follow up with ID consult with further recommendations. 4. Intravenous problem. We may need to switch to p.o. 5. Generalized weakness and decondition. Continue physical therapy. 6. Chronic obstructive pulmonary disease with acute exacerbation. Continue p.o. prednisone. Continue inhaled bronchodilators. 7. Hypertension and hypercholesterolemia. Continue Lipitor. Continue current medications. 8. Congestive heart failure, probably diastolic. She had good left ventricular functions and continue Lasix for now. We will follow up with other client support consultant. Baltazar Guerra MD
--- NOTE | 2017-05-15 12:26 | PN ---
DATE: 05/14/2017 REASON FOR CONSULTATION AND FOLLOWUP: Status post mitral valve bioprosthetic replacement, history of paroxysmal atrial fibrillation, admitted with cough and shortness of breath postop from rehab facility. SUBJECTIVE: The patient denies any chest pain, shortness of breath or any palpitation, feels a lot better. OBJECTIVE: GENERAL: Lying flat in the bed, not in apparent distress. VITAL SIGNS: As follows; temperature afebrile, heart rate 86 and blood pressure 137/90. HEENT: PERRLA intact. NECK: Supple. No carotid bruit or thyromegaly. CHEST: Clear to auscultation. HEART: S1 and S2 regular. ABDOMEN: Soft. EXTREMITIES: Clubbing and cyanosis negative. LABORATORY DATA: Blood workup as follows; WBC 10.6, hemoglobin 8.8, hematocrit 27.2, and platelet count 505. Sodium 140, potassium 3.2, chloride 106, carbon dioxide 22, anion gap of 9, BUN 26 and creatinine 0.9. Total protein 6.9, albumin 2.9, albumin-globulin ratio 0.9. IMPRESSION: Anemia postop hypokalemia, protein-calorie malnutrition, which was present on admission to Transitional Care Unit, history of severe mitral regurgitation, mild nonobstructive coronary artery disease, status post cardiac catheterization twice, last one before the open heart surgery, status post open heart surgery for mitral valve replacement bioprosthetic, and paroxysmal atrial fibrillation of the normal sinus. RECOMMENDATIONS: Supplement potassium. Increase nutrition support. Continue Coreg, multivitamins and iron added to the current regimen. Supplement potassium today. Increase nutritional support and we will restart low dose of Coumadin because history of recent valve replacement, history of paroxysmal atrial fibrillation. Now INR is 2.2, before INR was supratherapeutic, so was held. We will start low dose 2 mg and follow the PT/INR. Discussed with the patient at length. Continue rehab and we will add on some supplement for increase nutrition support for hypoproteinemia. We will add ensure pudding four times a day to increase nutrition support for treatment of hypoproteinemia, which is moderate. which has been present since admission. Thank you Dr. Guerra, for providing me the opportunity in taking care of the patient, Dariana Mcgregor. Brittany Beebe MD [facility] # [id number]
[2017-05-15] MEDS: Oxycodone/Acetaminophen 5/325 mg Tab PO PRN (21:22)
[2017-05-16] MEDS: Aritificial Tears (15ml) OP SCH ×6 (00:48→21:16)
[2017-05-16] MEDS: Acetylcysteine 20% Inhal Soln (4ml) IH SCH ×4 (01:30→20:04)
[2017-05-16] MEDS: Albuterol-Ipratrop 3 mg / 0.5 (3 ml) UD IH SCH ×4 (01:30→20:04)
[2017-05-16] MEDS: Pantoprazole 40 mg EC Tab PO SCH (05:22)
[2017-05-16] MEDS: Potassium Chloride 20 mEq ER Tab PO SCH ×2 (07:59→18:03)
[2017-05-16] MEDS: Multivitamin Therapeutic Tab PO SCH (08:00)
--- NOTE | 2017-05-16 08:50 | PN ---
DATE: 05/15/2017 PULMONARY PROGRESS NOTE REFERRING PHYSICIAN: Baltazar Guerra MD SUBJECTIVE: The patient is sitting up in a chair, night was unremarkable. Feels much better. Still has some cough and sputum production. No nausea, no vomiting, no diarrhea, leg pain or leg swelling. OBJECTIVE: GENERAL: In no acute distress. VITAL SIGNS: Temperature 98, heart rate 86, respiratory rate 20, blood pressure 130/79, and pulse oximetry 100% on nasal cannula. HEENT: Moist mucous membranes. No ulcer or thrush. NECK: Supple. No JVD. LUNGS: Fair airflow without rhonchi. HEART: S1 and S2. ABDOMEN: Soft and nontender. No organomegaly. EXTREMITIES: No edema. NEUROLOGIC: Alert, awake, follow simple commands. MEDICATIONS: She is on Mucomyst 20% inhale q.6 hours, artificial tears to both eyes, Atarax 25 mg q.6 hours p.r.n., Benadryl 25 mg at bedtime p.r.n., Cepacol lozenges q.2 hours p.r.n., Claritin 10 mg daily, colchicine 0.6 mg daily, Coreg 6.25 mg twice a day, Coumadin 2 mg will be given, doxycycline 100 mg twice a day, vitamin D 50,000 units q.7 days, Dulcolax 10 mg p.r.n., DuoNeb q.6 hours, Ecotrin 81 mg daily, ferrous sulfate 324 mg 3 times a day, IV iron, also on potassium 20 mEq daily, Lasix is at 40 mg twice a day, Lipitor 10 mg daily, magnesium oxide 400 mg daily, Mucinex LA 600 mg twice a day, Percocet 5/325 one tablet q.4 hours p.r.n., prednisone 30 mg daily, Protonix 40 mg daily, Singulair 10 mg daily, multivitamins daily, Xopenex inhale on a p.r.n. basis, and Zestril 5 mg daily. LABORATORY DATA: Shows hemoglobin 8.8, hematocrit 27.2, WBC 10.6, and platelets 505. INR of 3.24. Sodium 141, potassium 3.3, chloride 106, bicarbonate 29, BUN 26, creatinine 0.9, glucose 131, calcium 9.2, magnesium 1.2, AST 42, ALT 35, alkaline phosphatase 122, and albumin 2.9. IMPRESSION AND PLAN: Chronic obstructive lung disease, cardiomyopathy, pulmonary infiltrate, may have a sleep apnea syndrome, and atrial fibrillation. From a pulmonary point of view she is doing okay. Decrease prednisone to 20 mg. Continue antibiotics. Continue inhaled bronchodilator. Gastric prophylaxis. On anticoagulation. Fall precautions. Outpatient sleep study and PFT. Thank you and we will follow with you. Brittany Arciniega MD
[2017-05-16] MEDS ORDERED: Ergocalciferol 50,000 Intl Units Cap PO SCH (09:00)
--- NOTE | 2017-05-16 09:26 | CP.PCM.PN ---
Subjective - Date & Time of Evaluation Date of Evaluation: 05/16/17 Time of Evaluation: 09:23 - Subjective Subjective: Heme/Onc Progress Note for Daniel Mtz PGY2 Patient seen and examined at bedside. I spoke with nursing staff who did not report any acute overnight events. Patient was found to have an empty pizza box in her room. I discussed with her the importance of low salt, low fat diet considering her recent open heart surgery. Patient reports she would like to talk to a gaming table operator to learn about what her diet should be with her cardiac history. Otherwise she feels well. She denies chest pain, shortness of breath, nausea/vomiting/diarrhea, fever/chills, numbness or tingling. Objective - Vital Signs/Intake and Output Vital Signs (last 24 hours): Temp Pulse Resp BP Pulse Ox 98 F 100 H 16 128/76 92 L 05/15/17 16:00 05/16/17 07:57 05/15/17 16:00 05/16/17 07:57 05/15/17 10:00 Intake and Output: 05/16/17 05/16/17 06:59 18:59 Intake Total 420 Balance 420 - Medications Medications: Current Medications Acetylcysteine (Acetylcysteine 20%) 2 ml IH Q6 G[facility]BERTO PRN Reason: Protocol Last Admin: 05/16/17 07:43 Dose: 2 ml Albuterol/Ipratropium (Duoneb 3 Mg/0.5 Mg (3 Ml) Ud) 3 ml IH [id number] G[facility]BERTO PRN Reason: Protocol Last Admin: 05/16/17 07:44 Dose: 3 ml Artificial Tears (Artificial Tears) 0 ml OP Q4 G[facility]BERTO Last Admin: 05/16/17 07:56 Dose: 1 drop Aspirin (Ecotrin) 81 mg PO 0800 [facility] PRN Reason: Protocol Last Admin: 05/16/17 07:57 Dose: 81 mg Atorvastatin Calcium (Lipitor) 10 mg PO HS [facility]ERT[facility] PRN Reason: Protocol Last Admin: 05/15/17 21:22 Dose: 10 mg Benzocaine/Menthol (Cepacol Sore Throat) 1 flower MT Q2 PRN PRN Reason: Sore Throat Last Admin: 05/13/17 21:29 Dose: 1 flower Bisacodyl (Dulcolax) 10 mg NM DAILY PRN; Protocol PRN Reason: Constipation Carvedilol (Coreg) 6.25 mg PO 0800,1800 [facility]O PRN Reason: Protocol Last Admin: 05/16/17 07:57 Dose: 6.25 mg Colchicine (Colocrys) 0.6 mg PO DAILY [facility] PRN Reason: Protocol Last Admin: 05/15/17 09:52 Dose: 0.6 mg Diphenhydramine HCl (Benadryl) 25 mg PO HS PRN; Protocol PRN Reason: Insomnia Last Admin: 05/12/17 21:26 Dose: 25 mg Doxycycline Hyclate (Doryx) 100 mg PO Q12 G[facility]BERTO PRN Reason: Protocol Stop: 05/18/17 22:01 Last Admin: 05/15/17 21:21 Dose: 100 mg Ergocalciferol (Drisdol 50,000 Intl Units Cap) 1 cap PO Q7D [facility]ERTO PRN Reason: Protocol Last Admin: 05/16/17 08:00 Dose: 1 cap Ferrous Sulfate (Feosol) 324 mg PO TID [facility] Last Admin: 05/15/17 17:20 Dose: 324 mg Furosemide (Lasix) 40 mg PO 0800,1800 [facility]O PRN Reason: Protocol Last Admin: 05/16/17 07:57 Dose: 40 mg Guaifenesin (Mucinex La) 600 mg PO BID [facility]ERTO PRN Reason: Protocol Last Admin: 05/15/17 17:21 Dose: 600 mg Hydroxyzine HCl (Atarax) 25 mg PO Q6H PRN; Protocol PRN Reason: Allergy symptoms Iron Sucrose 200 mg/ Sodium (Chloride) 110 mls @ 110 mls/hr IVPB Q2D [facility] Stop: 05/17/17 12:14 Last Admin: 05/15/17 11:40 Dose: 110 mls/hr Levalbuterol HCl (Xopenex) 0.63 mg IH [id number] PRN; Protocol PRN Reason: Shortness of Breath Lisinopril (Zestril) 5 mg PO DAILY [facility] PRN Reason: Protocol Last Admin: 05/15/17 09:55 Dose: 5 mg Loratadine (Claritin) 10 mg PO DAILY [facility] PRN Reason: Protocol Last Admin: 05/15/17 09:52 Dose: 10 mg Magnesium Oxide (Mag-Ox) 400 mg PO DAILY [facility] Last Admin: 05/15/17 09:57 Dose: 400 mg Montelukast Sodium (Singulair) 10 mg PO HS [facility] PRN Reason: Protocol Last Admin: 05/15/17 21:22 Dose: 10 mg Multivitamins (Thera Tab) 1 tab PO 0800 [facility] Last Admin: 05/16/17 08:00 Dose: 1 tab Oxycodone/Acetaminophen (Percocet 5/325 Mg Tab) 1 tab PO Q4H PRN; Protocol PRN Reason: Pain, moderate (4-7) Stop: 05/18/17 20:02 Last Admin: 05/15/17 21:22 Dose: 1 tab Pantoprazole Sodium (Protonix Ec Tab) 40 mg PO 0600 [facility] PRN Reason: Protocol Last Admin: 05/16/17 05:22 Dose: 40 mg Potassium Chloride (K-Dur 20 Meq Er Tab) 20 meq PO BRK [facility] PRN Reason: Protocol Last Admin: 05/16/17 07:59 Dose: 20 meq Prednisone (Prednisone Tab) 20 mg PO 0800 [facility] PRN Reason: Protocol Last Admin: 05/16/17 07:59 Dose: 20 mg Warfarin Sodium (Coumadin) 2 mg PO 1800 [facility] PRN Reason: Protocol Last Admin: 05/15/17 17:20 Dose: 2 mg - Labs Labs: 05/15/17 07:05 05/15/17 07:05 PT 25.1 SECONDS (9.4-12.5) H 05/15/17 07:05 INR 2.24 (0.93-1.08) H 05/15/17 07:05 - Constitutional Appears: No Acute Distress - Head Exam Head Exam: ATRAUMATIC, NORMAL INSPECTION, NORMOCEPHALIC - Eye Exam Eye Exam: Normal appearance, PERRL Pupil Exam: NORMAL ACCOMODATION, PERRL - ENT Exam ENT Exam: Mucous Membranes Moist - Neck Exam Neck Exam: Full ROM - Respiratory Exam Respiratory Exam: Clear to Ausculation Bilateral, NORMAL BREATHING PATTERN. absent: Rales, Rhonchi, Wheezes - Cardiovascular Exam Cardiovascular Exam: REGULAR RHYTHM, +S1, +S2. absent: Gallop, Murmur - GI/Abdominal Exam GI & Abdominal Exam: Soft, Normal Bowel Sounds. absent: Rigid, Tenderness, Rebound - Extremities Exam Extremities Exam: Normal Inspection. absent: Calf Tenderness, Pedal Edema - Neurological Exam Neurological Exam: Alert, Awake, CN II-XII Intact, Oriented x3 - Psychiatric Exam Psychiatric exam: Normal Affect, Normal Mood - Skin Skin Exam: Dry, Warm Assessment and Plan - Assessment and Plan (Free Text) Assessment: This is a 62yo female with past medical history of HTN, hyperlipidemia, atrial fibrillation, severe mitral valve regurgitation from history of mitral valve prolapse with recent mitral valve replacement ( bioprosthetic valve) at [facility] on 05/04/17 who was admitted for cough and shortness of breath. Patient was found to have acute on chronic decompensated CHF secondary to recent mitral valve replacement surgery (POD#11) and pneumonia who was transferred to TCU for further strengthening. Patient was found to have anemia on admission. She was placed on Coumadin with supratherapeutic INR without overt signs of bleeding. Patient is also noted to have mild thrombocytosis as well. Anemia can be secondary to blood loss from surgery versus blood loss from elevated INR (unlikely). Thrombocytosis (improved) can be reactive from surgery versus iron deficiency anemia. Plan: - Hgb stable without overt signs of bleeding. - Pt received Venofer yesterday - Continue Iron PO - Pt now on Coumadin- Continue to monitor INR with goal between 2-3 - Patient will have outpatient transfusion of 2U PRBC to maintain Hgb>10. It will most likely be scheduled next week. Case seen, discussed and reviewed with Dr. Jimenez. Daniel Fragoso PGY2
[2017-05-16] MEDS: Magnesium Oxide 400 mg Tab UD PO SCH (10:23)
[2017-05-16] MEDS: guaiFENesin 600 mg ER Tab PO SCH ×2 (10:23→18:04)
--- NOTE | 2017-05-16 11:38 | CP.PCM.PN ---
Subjective - Date & Time of Evaluation Date of Evaluation: 05/16/17 Time of Evaluation: 10:30 - Subjective Subjective: Comfortable, no fevers, not in distress, no SOB at rest. Objective - Vital Signs/Intake and Output Vital Signs (last 24 hours): Temp Pulse Resp BP Pulse Ox 98 F 100 H 16 128/76 92 L 05/15/17 16:00 05/16/17 07:57 05/15/17 16:00 05/16/17 07:57 05/15/17 10:00 Intake and Output: 05/16/17 05/16/17 06:59 18:59 Intake Total 420 Balance 420 - Medications Medications: Current Medications Acetylcysteine (Acetylcysteine 20%) 2 ml IH Q6 [facility] PRN Reason: Protocol Last Admin: 05/16/17 07:43 Dose: 2 ml Albuterol/Ipratropium (Duoneb 3 Mg/0.5 Mg (3 Ml) Ud) 3 ml IH [id number] [facility]ERT[facility] PRN Reason: Protocol Last Admin: 05/16/17 07:44 Dose: 3 ml Artificial Tears (Artificial Tears) 0 ml OP Q4 [facility]ERTO Last Admin: 05/16/17 07:56 Dose: 1 drop Aspirin (Ecotrin) 81 mg PO 0800 [facility] PRN Reason: Protocol Last Admin: 05/16/17 07:57 Dose: 81 mg Atorvastatin Calcium (Lipitor) 10 mg PO HS [facility] PRN Reason: Protocol Last Admin: 05/15/17 21:22 Dose: 10 mg Benzocaine/Menthol (Cepacol Sore Throat) 1 flower MT Q2 PRN PRN Reason: Sore Throat Last Admin: 05/13/17 21:29 Dose: 1 flower Bisacodyl (Dulcolax) [address] DAILY PRN; Protocol PRN Reason: Constipation Carvedilol (Coreg) 6.25 mg PO 0800,1800 [facility] PRN Reason: Protocol Last Admin: 05/16/17 07:57 Dose: 6.25 mg Colchicine (Colocrys) 0.6 mg PO DAILY [facility] PRN Reason: Protocol Last Admin: 05/15/17 09:52 Dose: 0.6 mg Diphenhydramine HCl (Benadryl) 25 mg PO HS PRN; Protocol PRN Reason: Insomnia Last Admin: 05/12/17 21:26 Dose: 25 mg Doxycycline Hyclate (Doryx) 100 mg PO Q12 [facility] PRN Reason: Protocol Stop: 05/18/17 22:01 Last Admin: 05/15/17 21:21 Dose: 100 mg Ergocalciferol (Drisdol 50,000 Intl Units Cap) 1 cap PO Q7D [facility] PRN Reason: Protocol Last Admin: 05/16/17 08:00 Dose: 1 cap Ferrous Sulfate (Feosol) 324 mg PO TID [facility] Last Admin: 05/15/17 17:20 Dose: 324 mg Furosemide (Lasix) 40 mg PO 0800,1800 [facility] PRN Reason: Protocol Last Admin: 05/16/17 07:57 Dose: 40 mg Guaifenesin (Mucinex La) 600 mg PO BID [facility] PRN Reason: Protocol Last Admin: 05/15/17 17:21 Dose: 600 mg Hydroxyzine HCl (Atarax) 25 mg PO Q6H PRN; Protocol PRN Reason: Allergy symptoms Iron Sucrose 200 mg/ Sodium (Chloride) 110 mls @ 110 mls/hr IVPB Q2D [facility] Stop: 05/17/17 12:14 Last Admin: 05/15/17 11:40 Dose: 110 mls/hr Levalbuterol HCl (Xopenex) 0.63 mg IH [id number] PRN; Protocol PRN Reason: Shortness of Breath Lisinopril (Zestril) 5 mg PO DAILY [facility] PRN Reason: Protocol Last Admin: 05/15/17 09:55 Dose: 5 mg Loratadine (Claritin) 10 mg PO DAILY [facility] PRN Reason: Protocol Last Admin: 05/15/17 09:52 Dose: 10 mg Magnesium Oxide (Mag-Ox) 400 mg PO DAILY [facility] Last Admin: 05/15/17 09:57 Dose: 400 mg Montelukast Sodium (Singulair) 10 mg PO HS [facility] PRN Reason: Protocol Last Admin: 05/15/17 21:22 Dose: 10 mg Multivitamins (Thera Tab) 1 tab PO 0800 [facility] Last Admin: 05/16/17 08:00 Dose: 1 tab Oxycodone/Acetaminophen (Percocet 5/325 Mg Tab) 1 tab PO Q4H PRN; Protocol PRN Reason: Pain, moderate (4-7) Stop: 05/18/17 20:02 Last Admin: 05/15/17 21:22 Dose: 1 tab Pantoprazole Sodium (Protonix Ec Tab) 40 mg PO 0600 [facility] PRN Reason: Protocol Last Admin: 05/16/17 05:22 Dose: 40 mg Potassium Chloride (K-Dur 20 Meq Er Tab) 20 meq PO BRK [facility] PRN Reason: Protocol Last Admin: 05/16/17 07:59 Dose: 20 meq Prednisone (Prednisone Tab) 20 mg PO 0800 [facility] PRN Reason: Protocol Last Admin: 05/16/17 07:59 Dose: 20 mg Warfarin Sodium (Coumadin) 2 mg PO 1800 [facility] PRN Reason: Protocol Last Admin: 05/15/17 17:20 Dose: 2 mg - Labs Labs: 05/15/17 07:05 05/15/17 07:05 PT 25.1 SECONDS (9.4-12.5) H 05/15/17 07:05 INR 2.24 (0.93-1.08) H 05/15/17 07:05 - Constitutional Appears: Non-toxic, No Acute Distress - Head Exam Head Exam: NORMAL INSPECTION - ENT Exam ENT Exam: Mucous Membranes Moist - Neck Exam Neck Exam: absent: Lymphadenopathy, Meningismus - Respiratory Exam Respiratory Exam: Decreased Breath Sounds - Cardiovascular Exam Cardiovascular Exam: +S1, +S2 - GI/Abdominal Exam GI & Abdominal Exam: Soft. absent: Tenderness Assessment and Plan - Assessment and Plan (Free Text) Plan: Assessment sytemic inflammatory response syndrome, consider due to congestive heart failure , R/O HCAP severe mitral regurgitation S/P mitral valve replacement atrial fibrillation asthma HTN esophageal ulcers carpal tunnel syndrome COPD dyslipidemia atrial fibrillation S/P cholecystectomy S/P foot surgery Plan sputum cx only showing normal oral hong; PCT is low; continue Doxycycline day 8 - will d/c after today will continue to monitor clinically
--- NOTE | 2017-05-16 12:09 | PN ---
DATE: 05/15/2017 SUBJECTIVE: The patient is seen sitting in chair. She is awake. She is alert. She complains of cough. She complains of white phlegm. She complains of dyspnea on exertion. She denies any chest tightness, palpitations. PHYSICAL EXAMINATION: GENERAL: An elderly lady sitting in chair. VITAL SIGNS: Blood pressure 105/75, heart rate 74, respiratory rate 18, temperature 98. HEENT: Normocephalic, atraumatic. NECK: Supple, no JVD. LUNGS: Bilateral equal entry, no rales. CARDIAC: S1 and S2, regular rate and rhythm, no rub, no murmur. ABDOMEN: Soft, nondistended, nontender, bowel sounds present. EXTREMITIES: No lower extremity edema. INTAKE AND OUTPUT: Not charted. LABORATORY DATA: WBC 10.6, hemoglobin 8.8, hematocrit 27, platelets 505. Sodium 141, potassium 3.3, chloride 106, CO2 of 29, BUN 26, creatinine 0.9, glucose 132. ASSESSMENT: 1. Hypokalemia. 2. Severe anemia. 3. Left ventricular hypertrophy. 4. Paroxysmal atrial fibrillation. 5. Resolved acute kidney injury/prerenal azotemia. PLAN: 1. Replace potassium. 2. Continue antibiotics. 3. Push p.o. fluids. 4. Continue Lasix. 5. Avoid nephrotoxins. Stacia Cornejo MD
--- NOTE | 2017-05-16 16:27 | PN ---
DATE: 05/16/2017 LOCATION: The patient in room 321, bed 1. REASON FOR CONSULTATION AND FOLLOWUP: Status post mitral valve bioprosthetic replacement, history of paroxysmal atrial fibrillation, admitted with cough and shortness of breath, postop from rehab facility, also complaining chest pain, which is a localized musculoskeletal pain at the site of the . SUBJECTIVE: The patient is sitting in chair comfortably without any shortness of breath or palpitation. She still feels tenderness on the chest wall with some pain at the site of the surgery. PHYSICAL EXAMINATION: VITAL SIGNS: Blood pressure 113/77, respirations 16, pulse 113, earlier pulse was 100, temperature 98. HEENT: Head is normocephalic. Eyes: Pupils are normal. Conjunctivae slightly pale. NECK: JVP low. Carotids equal. THORAX: AP diameter normal. LUNGS: Clear. CARDIOVASCULAR: S1 and S2. Tenderness around the of the chest wall. ABDOMEN: Soft. No tenderness. No organomegaly. EXTREMITIES: No clubbing. No cyanosis. LABORATORY DATA: WBC 10.6, hemoglobin 8.8, hematocrit 27.2, platelets 505. Sodium 141, potassium 3.3, BUN 26, creatinine 0.9, calcium 9.2, phosphorus 3.7, magnesium 1.2. This was yesterday. DIAGNOSES: Status post bioprosthetic mitral valve replacement; anemia; postoperative; history of severe mitral regurgitation prior to surgery; mild nonobstructive coronary artery disease; paroxysmal atrial fibrillation, but now maintaining sinus rhythm, but has sinus tachycardia; hypokalemia; hypomagnesemia. PLAN: The patient received supplemental potassium yesterday. We will increase the Coreg dose to help the sinus tachycardia. Sinus tachycardia is multifactorial, probably large role of anemia. The patient's prothrombin time is 25.1 and INR is 2.24. Plan is that we will increase the carvedilol dose to 12.5 b.i.d. because of sinus tachycardia. Warfarin is 2 mg p.o. daily and the patient's prothrombin time/INR is therapeutic. The patient is getting ferrous sulfate 324 mg p.o. t.i.d. for anemia. The patient received Venofer IV, furosemide 40 mg p.o. b.i.d., Lipitor 10 daily, magnesium 400 mg p.o. daily, prednisone 20 mg p.o. daily, Protonix 40 daily, Singulair 10 mg at bedtime, Zestril 5 mg daily. We will repeat SMA-7, magnesium and phosphorus in the morning. We will follow with you. Brittany Rouse MD
--- NOTE | 2017-05-16 20:01 | PN ---
DATE: 05/16/2017 SUBJECTIVE: The patient is seen, sitting in chair. She is awake. She is alert. She is comfortable. She is complaining of cough. She is bringing a lot of white phlegm. PHYSICAL EXAMINATION: GENERAL: Elderly lady, sitting in chair. VITAL SIGNS: Blood pressure /72, heart rate 120, respiratory rate 16, temperature 98. HEENT: Normocephalic, atraumatic. NECK: Supple, no JVD. LUNGS: Bilateral rhonchi, expiratory wheeze. CARDIAC: S1 and S2, regular rate and rhythm, no murmur, no rub. ABDOMEN: Obese, distended, soft, nontender, bowel sounds are present. EXTREMITIES: No lower extremity edema. LABORATORY DATA: No new labs today. ASSESSMENT: 1. Acute kidney injury/prerenal azotemia, resolved. 2. Hypokalemia secondary to diuretics. 3. Pneumonia. 4. Congestive heart failure. 5. Severe anemia. 6. Paroxysmal atrial fibrillation. PLAN: 1. Continue to replace potassium. 2. Complete antibiotics. 3. Continue Lasix. 4. Continue Coreg for rate control, continue anticoagulation. Stacia Cornejo MD
[2017-05-16] MEDS: Benzocaine/Menthol (Cepacol) Lozenge MT PRN (21:18)
[2017-05-16] MEDS: Oxycodone/Acetaminophen 5/325 mg Tab PO PRN (21:20)
[2017-05-17] MEDS: Aritificial Tears (15ml) OP SCH ×6 (01:43→21:25)
[2017-05-17] MEDS: Albuterol-Ipratrop 3 mg / 0.5 (3 ml) UD IH SCH ×4 (01:55→20:39)
[2017-05-17] MEDS: Acetylcysteine 20% Inhal Soln (4ml) IH SCH ×5 (01:55→20:39)
--- NOTE | 2017-05-17 04:02 | PN ---
PULMONARY PROGRESS NOTE DATE: 05/16/2017 REFERRING PHYSICIAN: Baltazar Guerra MD SUBJECTIVE: She is out of bed to chair, doing well in therapy, feels better, still has some cough and sputum production. No nausea or vomiting. No diarrhea. No leg pain or leg swelling. OBJECTIVE: GENERAL: In no acute distress. VITAL SIGNS: Temperature is 98, heart rate is 65, respiratory rate is 14, blood pressure is 127/62, and pulse oximetry is 98% on room air. HEENT: Moist mucous membranes. No ulcer or thrush noted. NECK: Supple. No JVD. LUNGS: Has a fair airflow with few rhonchi. HEART: S1 and S2. ABDOMEN: Soft and nontender. No organomegaly. EXTREMITIES: There is no edema. NEUROLOGIC: Awake and alert, follow simple commands. CURRENT MEDICATIONS: She is on Mucomyst 20% inhaled q.6 hours, artificial tears q.4 hours, Atarax 25 mg q.6 hours p.r.n., Benadryl 25 mg at bedtime p.r.n., Cepacol lozenges q.2 hours p.r.n., Claritin 10 mg daily, colchicine 0.6 mg daily, Coreg 12.5 mg twice a day, Coumadin 2 mg daily, doxycycline 100 mg twice a day, vitamin D 50,000 units q.7 days, Dulcolax p.r.n. basis, DuoNeb q.6 hours, Ecotrin 81 mg daily, ferrous sulfate 325 mg 3 times a day, IV iron, also on potassium 20 mEq twice a day, Lasix 40 mg twice a day, Lipitor 10 mg daily, magnesium oxide 400 mg daily, Mucinex 600 mg twice a day, Percocet 5/325 one tablet q.4 hours p.r.n., prednisone 20 mg daily, Protonix 40 mg daily, Singulair 10 mg at bedtime, multivitamins daily, Xopenex inhaled q.6 hours, and Zestril 5 mg daily. LABORATORY DATA: Reviewed and no new lab is available since yesterday. IMPRESSION AND PLAN: Chronic obstructive lung disease, cardiomyopathy, pulmonary infiltrate, may have sleep apnea syndrome, and atrial fibrillation. From a pulmonary point of view, she is doing okay. Continue bronchodilator. Keep head at 45 degrees, aspiration precaution, gastric prophylaxis, on anticoagulation, and continue therapy. Thank you and we will follow with you. Brittany Arciniega MD
[2017-05-17] MEDS: Pantoprazole 40 mg EC Tab PO SCH (05:59)
[2017-05-17 07:41] LABS: BASO # 0.01 K/mm3 (0.0-2.0); BASO % 0.1 % (0.0-3.0); EOS # 0.5 (0.0-0.7); EOS % 3.8 % (1.5-5.0); GRAN # 7.06 (1.4-6.5); GRAN % 60.2 % (50.0-68.0); HEMATOCRIT 30.1 % (36.0-48.0); LYMPH % 25.8 % (22.0-35.0); MEAN CELL VOLUME 89.6 fl (80.0-105.0); MEAN CORPUSCULAR HEMOGLOBIN 28.9 pg (25.0-35.0); MEAN CORPUSCULAR HGB CONC 32.2 g/dl (31.0-37.0); MEAN PLATELET VOLUME 9.3 fl (7.0-11.0); MONO # 1.2 (0.1-0.6); MONO % 10.1 % (1.0-6.0); RED CELL DISTRIBUTION WIDTH 14.7 % (11.5-14.5); WHITE BLOOD COUNT 11.7 10^3/ul (4.5-11.0)
[2017-05-17 07:54] LABS: INR 1.44 (0.93-1.08)
[2017-05-17 07:56] LABS: ALKALINE PHOSPHATASE 135 U/L (38-126); ALT/SGPT 46 U/L (7-56); AST/SGOT 39 U/L (14-36); BILIRUBIN,TOTAL 0.6 mg/dL (0.2-1.3); BLOOD UREA NITROGEN 23 mg/dL (7-21); CALCIUM 9.6 mg/dL (8.4-10.5); CARBON DIOXIDE 28 mmol/L (21-33); CHLORIDE 104 mmol/L (98-107); GFR AFRICAN-AMERICAN > 60; GLUCOSE,RANDOM 132 mg/dL (70-110); MAGNESIUM 1.1 mg/dL (1.7-2.2); POTASSIUM 3.4 mmol/L (3.6-5.0); SODIUM 141 mmol/L (132-148)
[2017-05-17] MEDS: Multivitamin Therapeutic Tab PO SCH (08:32)
[2017-05-17] MEDS ORDERED: Potassium Chloride 20 mEq ER Tab PO ONE ×2 (08:48→19:07)
--- NOTE | 2017-05-17 10:26 | CP.PCM.PN ---
Subjective - Date & Time of Evaluation Date of Evaluation: 05/17/17 Time of Evaluation: 10:21 - Subjective Subjective: Heme/Onc Progress Note for Daniel Mtz PGY2 Patient seen and examined at bedside. As per nursing, patient was having hemoptysis overnight. She has been having a productive cough the past couple days with clear sputum and then started to cough small amounts of bright red blood overnight. She reports having chest soreness which is not new. She denies shortness of breath, fever/chills, numbness/tingling, dysuria, hematuria, nausea /vomiting/diarrhea or blood in stool. The patient is very anxious on exam. Objective - Vital Signs/Intake and Output Vital Signs (last 24 hours): Temp Pulse Resp BP Pulse Ox 97.6 F 65 14 127/62 98 05/16/17 17:39 05/16/17 18:02 05/16/17 17:39 05/16/17 18:04 05/16/17 17:39 Intake and Output: 05/17/17 05/17/17 06:59 18:59 Intake Total 420 Balance 420 - Medications Medications: Current Medications Acetylcysteine (Acetylcysteine 20%) 2 ml IH Q6 GUALBERTO PRN Reason: Protocol Last Admin: 05/17/17 07:32 Dose: Not Given Albuterol/Ipratropium (Duoneb 3 Mg/0.5 Mg (3 Ml) Ud) 3 ml IH [id number] GUALBERTO PRN Reason: Protocol Last Admin: 05/17/17 07:32 Dose: Not Given Artificial Tears (Artificial Tears) 0 ml OP Q4 GUALBERTO Last Admin: 05/17/17 05:58 Dose: Not Given Aspirin (Ecotrin) 81 mg PO 0800 GUALBERTO PRN Reason: Protocol Last Admin: 05/16/17 07:57 Dose: 81 mg Atorvastatin Calcium (Lipitor) 10 mg PO HS GUALBERTO PRN Reason: Protocol Last Admin: 05/16/17 21:17 Dose: 10 mg Benzocaine/Menthol (Cepacol Sore Throat) 1 flower MT Q2 PRN PRN Reason: Sore Throat Last Admin: 05/16/17 21:18 Dose: 1 flower Bisacodyl (Dulcolax) 10 mg IL DAILY PRN; Protocol PRN Reason: Constipation Carvedilol (Coreg) 12.5 mg PO 0800,1800 [facility] Last Admin: 05/16/17 18:02 Dose: 12.5 mg Colchicine (Colocrys) 0.6 mg PO DAILY GUALBERTO PRN Reason: Protocol Last Admin: 05/16/17 10:23 Dose: 0.6 mg Diphenhydramine HCl (Benadryl) 25 mg PO HS PRN; Protocol PRN Reason: Insomnia Last Admin: 05/16/17 22:30 Dose: 25 mg Ergocalciferol (Drisdol 50,000 Intl Units Cap) 1 cap PO Q7D GUALBERTO PRN Reason: Protocol Last Admin: 05/16/17 08:00 Dose: 1 cap Ferrous Sulfate (Feosol) 324 mg PO TID [facility] Last Admin: 05/16/17 18:03 Dose: 324 mg Furosemide (Lasix) 40 mg PO 0800,1800 GUALBERTO PRN Reason: Protocol Last Admin: 05/16/17 18:04 Dose: 40 mg Guaifenesin (Mucinex La) 600 mg PO BID GUALBERTO PRN Reason: Protocol Last Admin: 05/16/17 18:04 Dose: 600 mg Hydroxyzine HCl (Atarax) 25 mg PO Q6H PRN; Protocol PRN Reason: Allergy symptoms Iron Sucrose 200 mg/ Sodium (Chloride) 110 mls @ 110 mls/hr IVPB Q2D [facility] Stop: 05/17/17 12:14 Last Admin: 05/15/17 11:40 Dose: 110 mls/hr Levalbuterol HCl (Xopenex) 0.63 mg IH [id number] PRN; Protocol PRN Reason: Shortness of Breath Lisinopril (Zestril) 5 mg PO DAILY GUALBERTO PRN Reason: Protocol Last Admin: 05/16/17 10:23 Dose: 5 mg Loratadine (Claritin) 10 mg PO DAILY GUALBERTO PRN Reason: Protocol Last Admin: 05/16/17 10:23 Dose: 10 mg Magnesium Oxide (Mag-Ox) 400 mg PO DAILY [facility] Last Admin: 05/16/17 10:23 Dose: 400 mg Montelukast Sodium (Singulair) 10 mg PO HS GUALBERTO PRN Reason: Protocol Last Admin: 05/16/17 21:17 Dose: 10 mg Multivitamins (Thera Tab) 1 tab PO 0800 [facility] Last Admin: 05/16/17 08:00 Dose: 1 tab Oxycodone/Acetaminophen (Percocet 5/325 Mg Tab) 1 tab PO Q4H PRN; Protocol PRN Reason: Pain, moderate (4-7) Stop: 05/18/17 20:02 Last Admin: 05/16/17 21:20 Dose: 1 tab Pantoprazole Sodium (Protonix Ec Tab) 40 mg PO 0600 GUALBERTO PRN Reason: Protocol Last Admin: 05/17/17 05:59 Dose: 40 mg Potassium Chloride (K-Dur 20 Meq Er Tab) 20 meq PO BID GUALBERTO PRN Reason: Protocol Last Admin: 05/16/17 18:03 Dose: 20 meq Prednisone (Prednisone Tab) 20 mg PO 0800 GUALBERTO PRN Reason: Protocol Last Admin: 05/16/17 07:59 Dose: 20 mg Warfarin Sodium (Coumadin) 5 mg PO 1800 [facility] PRN Reason: Protocol - Labs Labs: 05/17/17 07:38 05/17/17 07:38 PT 16.0 SECONDS (9.4-12.5) H 05/17/17 07:38 INR 1.44 (0.93-1.08) H 05/17/17 07:38 - Constitutional Appears: No Acute Distress - Head Exam Head Exam: ATRAUMATIC, NORMAL INSPECTION, NORMOCEPHALIC - Eye Exam Eye Exam: Normal appearance Pupil Exam: NORMAL ACCOMODATION, PERRL - ENT Exam ENT Exam: Mucous Membranes Moist Additional comments: Pt had some blood under her dentures but no signs of bleeding in her oropharynx. - Respiratory Exam Respiratory Exam: Clear to Ausculation Bilateral, NORMAL BREATHING PATTERN. absent: Rales, Rhonchi, Wheezes - Cardiovascular Exam Cardiovascular Exam: Tachycardia, REGULAR RHYTHM, +S1, +S2. absent: Gallop, Rubs, Murmur - GI/Abdominal Exam GI & Abdominal Exam: Soft, Normal Bowel Sounds. absent: Rigid, Tenderness, Mass , Rebound - Extremities Exam Extremities Exam: Normal Inspection. absent: Calf Tenderness, Pedal Edema - Neurological Exam Neurological Exam: Alert, Awake, CN II-XII Intact, Oriented x3 - Psychiatric Exam Psychiatric exam: Anxious, Normal Affect, Normal Mood - Skin Skin Exam: Dry, Intact, Warm Assessment and Plan - Assessment and Plan (Free Text) Assessment: This is a 62yo female with past medical history of HTN, hyperlipidemia, atrial fibrillation, severe mitral valve regurgitation from history of mitral valve prolapse with recent mitral valve replacement ( bioprosthetic valve) at [facility] on 05/04/17 who was admitted for cough and shortness of breath. Patient was found to have acute on chronic decompensated CHF secondary to recent mitral valve replacement surgery (POD#11) and pneumonia who was transferred to TCU for further strengthening. Patient was found to have anemia on admission. She was placed on Coumadin with supratherapeutic INR without overt signs of bleeding. Thrombocytosis was noted but now has resolved. Anemia can be secondary to blood loss from surgery versus blood loss from elevated INR (unlikely). Hemoptysis can be secondary to chronic cough and bronchitis in the setting of being on Coumadin. Plan: - Hgb 9.7 which has improved (was 8.8) - Continue Coumadin - INR: 1.44 - Continue to monitor INR with goal between 2-3 - Spoke with Dr. Arciniega who reports to obtain CXR for patient - Will give patient Codeine for cough - As per nursing staff, patient has been very anxious since admission. Will consult Psych. - Continue Iron PO - Patient will have outpatient transfusion of 2U PRBC to maintain Hgb>10 Case seen, discussed and reviewed with Dr. Jimenez. Daniel Fragoso PGY2
[2017-05-17] MEDS ORDERED: Promethazine/Cod 6.25mg-10mg/5ml Syr UD PO PRN (10:31)
[2017-05-17] MEDS: Potassium Chloride 20 mEq ER Tab PO SCH ×2 (10:34→17:35)
[2017-05-17] MEDS: Magnesium Oxide 400 mg Tab UD PO SCH (10:35)
[2017-05-17] MEDS: guaiFENesin 600 mg ER Tab PO SCH ×2 (10:35→17:36)
--- NOTE | 2017-05-17 10:45 | RAD ---
HISTORY: F/U pneumonia and compare COMPARISON: 05/10/2017 TECHNIQUE: Chest PA and lateral FINDINGS: LUNGS: There is improvement in the bibasilar infiltrates. Minimal linear infiltrates or atelectasis can still be seen. PLEURA: No significant pleural effusion identified. No pneumothorax apparent. CARDIOVASCULAR: Moderate cardiomegaly OSSEOUS STRUCTURES: Sternal wires VISUALIZED UPPER ABDOMEN: Normal. OTHER FINDINGS: None. IMPRESSION: Improved bibasilar infiltrates
--- NOTE | 2017-05-17 14:21 | PN ---
DATE: 05/17/2017 REASON FOR CONSULTATION: Followup status post mitral valve repair, bioprosthetic replacement, paroxysmal atrial fibrillation, admitted with cough and shortness of breath, transferred from postop from rehab facility, and chest pain, musculoskeletal. SUBJECTIVE: The patient denies any chest pain, but complains of coughing some blood. Denies any chest pain. Denies any shortness of breath. Denies any palpitation. OBJECTIVE: GENERAL: Lying flat in the bed, not in apparent distress. VITAL SIGNS: As follows; temperature afebrile, heart rate 65, and blood pressure 127/62. HEENT: PERRLA intact. NECK: Supple. No carotid bruit or thyromegaly. CHEST: Clear to auscultation. HEART: S1 and S2 regular. ABDOMEN: Soft. EXTREMITIES: Clubbing and cyanosis negative. LABORATORY DATA: Blood workup as follows; WBC 11.7, hemoglobin 9.7, hematocrit 30.1, and platelet count 430.. Chemistry shows sodium 141, potassium 4.3, chloride 104, carbon dioxide 28, anion gap of 12, BUN 23, and creatinine 0.9. Total protein 7 and albumin 3.5. IMPRESSION: Severe mitral regurgitation, paroxysmal atrial fibrillation, status post open heart surgery for bioprosthetic mitral valve replacement, anemia, postoperative pneumonia, now the patient is in normal sinus, hypokalemia, and electrolyte abnormality. Coughing up of the blood. RECOMMENDATIONS: We will get a chest x-ray PA and lateral to rule out any early pneumonia. Increase Coumadin. Today, Coumadin level is 1.44, yesterday it was 2.24, we will increase to 5 mg today. Admitting INR was 4.34, supratherapeutic, so it was on hold. Chest x-ray PA and lateral and increase Coumadin to 5 today, continue Coreg. We will follow with you. Thank you Dr. Guerra for providing me the opportunity in taking care of the patient, Dariana Mcgregor, who will follow with you. Brittany Beebe MD
[2017-05-17] MEDS ORDERED: Magnesium Sulfate 1 gm in D5W 1 GM/100 ML BAG IVPB ONE (19:07)
[2017-05-17] MEDS ORDERED: Magnesium Oxide 400 mg Tab UD PO STA (21:29)
--- NOTE | 2017-05-18 00:07 | PN ---
DATE: 05/17/2017 REFERRING PHYSICIAN: Baltazar Guerra MD SUBJECTIVE: She is sitting up in a reclining chair. Night was unremarkable. This morning when she woke up, she saw some blood in the mouth and spit out blood which improved spontaneously this afternoon when I examined her. She does have some cough and clear sputum. There is no more hemoptysis noted. No nausea, vomiting, or diarrhea. No leg pain or leg swelling. OBJECTIVE: GENERAL: No acute distress. VITAL SIGNS: Temperature 98, heart rate is 98, respiratory rate is 18, blood pressure 102/68, pulse ox 100% on room air. HEENT: Moist mucous membranes, has a denture, no sign of bleeding. Nasal mucosa looks okay. No bleeding. LUNGS: Has a fair airflow with few rhonchi. HEART: S1 and S2. ABDOMEN: Soft, nontender, no organomegaly. EXTREMITIES: There is no edema. NEUROLOGIC: Awake and follows simple commands. MEDICATIONS: She is on Mucomyst 20% inhaled q.6 hours, Atarax 25 mg q.6 hours p.r.n., Benadryl 25 mg at bedtime p.r.n., Cepacol lozenges q.12 hours one p.r.n., Claritin 10 mg daily, colchicine 0.6 mg daily, Coreg 12.5 mg twice a day, Coumadin 5 mg given today, vitamin D 50,000 units weekly, Dulcolax 10 mg daily, Ecotrin 81 mg daily, ferrous sulfate 324 mg three times a day, potassium 20 mEq twice a day, Lasix 40 mg twice a day, Lipitor 10 mg at bedtime, magnesium oxide 400 mg twice a day, Mucinex LA 600 mg twice a day, Percocet 5/325 one tab q.4 hours p.r.n., promethazine with codeine q.4 hours p.r.n., prednisone 20 mg daily, Protonix 40 mg daily, Singulair 10 mg daily, multivitamins daily, Xopenex inhaled q.6 hours, and Zestril 5 mg daily. LABORATORY DATA: Shows hemoglobin 9.7, hematocrit 30.1, WBC 11.7, platelet count is 430. INR 1.4. Sodium 141, potassium 3.4, chloride 104, bicarbonate 28, BUN 23, creatinine 0.9, glucose 132, calcium 9.6, magnesium 1.1. AST 39, ALT 46, alk phos is 135. Chest x-ray done today shows improved basilar infiltrates. IMPRESSION AND PLAN: Chronic obstructive lung disease, cardiomyopathy, pulmonary infiltrates, may have sleep apnea syndrome, atrial fibrillation, has some blood from the mouth, worse with sputum. Presently, there is no more bleeding and the cough with clear sputum. Pulmonary point of view, continue taper down of steroids, antibiotics, inhaled bronchodilator. Continue therapy. Thank you and we will follow with you. Brittany Arciniega MD
--- NOTE | 2017-05-18 00:39 | PN ---
SUBJECTIVE: The patient is sitting chair. She is awake. She is alert. She complains of cough. She is bringing up a lot of phlegm. She denies any fever, chills. She denies any chest tightness. PHYSICAL EXAMINATION: GENERAL: An elderly lady sitting in chair. VITAL SIGNS: Blood pressure 128/87, heart rate 107, respiratory rate 14, temperature 97.8. HEENT: Normocephalic, atraumatic. NECK: Supple, no JVD. LUNGS: Bilateral equal entry, bilateral scattered rhonchi. CARDIAC: S1 and S2, regular rate and rhythm, no murmur, no rub. ABDOMEN: Obese, distended, soft, nontender, bowel sounds present. EXTREMITIES: No lower extremity edema. INTAKE AND OUTPUT: Not charted. LABORATORY DATA: WBC 11.7, hemoglobin 9.7, hematocrit 30, platelets 430. Sodium 141, potassium 3.4, chloride 104, CO2 of 28, BUN 23, creatinine 0.9, glucose 132, calcium 9.6, phosphorus 3.7, magnesium 1.1. CURRENT MEDICATIONS: Atarax, Benadryl, Cepacol, Claritin, colchicine, Coreg, Coumadin, DuoNeb, Ecotrin, Feosol, K-Dur, magnesium oxide 400 daily, Singulair and Xopenex. ASSESSMENT AND PLAN: 1. Persistent severe hypokalemia. 2. Hypomagnesemia, K-Dur 40 mEq p.o times one dose now. 3. Continue Lasix. 4. Complete antibiotics. 5. Monitor electrolytes closely. Stacia Cornejo MD
[2017-05-18] MEDS: Acetylcysteine 20% Inhal Soln (4ml) IH SCH ×4 (01:52→19:32)
[2017-05-18] MEDS: Albuterol-Ipratrop 3 mg / 0.5 (3 ml) UD IH SCH ×4 (01:52→19:32)
[2017-05-18] MEDS: Oxycodone/Acetaminophen 5/325 mg Tab PO PRN (03:09)
[2017-05-18] MEDS: Aritificial Tears (15ml) OP SCH ×6 (03:11→21:21)
[2017-05-18] MEDS: Pantoprazole 40 mg EC Tab PO SCH (05:39)
[2017-05-18] MEDS: Potassium Chloride 20 mEq ER Tab PO SCH ×2 (08:25→17:28)
[2017-05-18] MEDS: Multivitamin Therapeutic Tab PO SCH (08:25)
[2017-05-18 09:07] LABS: BASO # 0.01 K/mm3 (0.0-2.0); BASO % 0.1 % (0.0-3.0); EOS # 0.5 (0.0-0.7); EOS % 4.1 % (1.5-5.0); GRAN # 7.97 (1.4-6.5); GRAN % 60.1 % (50.0-68.0); LYMPH # 3.5 (1.2-3.4); LYMPH % 26.5 % (22.0-35.0); MEAN CELL VOLUME 90.3 fl (80.0-105.0); MEAN CORPUSCULAR HEMOGLOBIN 29.6 pg (25.0-35.0); MEAN CORPUSCULAR HGB CONC 32.8 g/dl (31.0-37.0); MEAN PLATELET VOLUME 9.7 fl (7.0-11.0); MONO # 1.2 (0.1-0.6); MONO % 9.2 % (1.0-6.0); RED CELL DISTRIBUTION WIDTH 14.8 % (11.5-14.5); WHITE BLOOD COUNT 13.3 10^3/ul (4.5-11.0)
[2017-05-18 09:16] LABS: INR 1.67 (0.93-1.08)
[2017-05-18 09:21] LABS: BLOOD UREA NITROGEN 22 mg/dL (7-21); CALCIUM 9.7 mg/dL (8.4-10.5); CARBON DIOXIDE 29 mmol/L (21-33); CHLORIDE 102 mmol/L (98-107); GFR AFRICAN-AMERICAN > 60; GLUCOSE,RANDOM 200 mg/dL (70-110); POTASSIUM 3.8 mmol/L (3.6-5.0); SODIUM 139 mmol/L (132-148)
--- NOTE | 2017-05-18 10:05 | PN ---
DATE: 05/17/2017 SUBJECTIVE: The patient is in Transitional Care Unit. She is having the problem with IV access to give the patient IV magnesium as her magnesium is low. The patient tried several times, almost more than 10 times, difficult to access. The patient advised to take magnesium p.o. The patient has mood distress. She is still coughing on and off, but less frequent than before and often and less severe. She does have chest discomfort from coughing and recent cardiothoracic surgery from the midline wound that which expected, but seems stable. PHYSICAL EXAMINATION: VITAL SIGNS: On 05/17/2017, her temperature is 98, her heart rate is 107, blood pressure 128/87, respirations 14, and saturation 100%. HEAD/NECK: Normal. No JVD. No thyromegaly. CHEST: Clear, good air entry. CARDIAC: First sound and second sound normal. ABDOMEN: Soft, obese, and nontender. EXTREMITIES: No edema. NEUROLOGIC: Normal. LABORATORY DATA: On 05/17/2017, sodium 141, potassium 3.4, chloride 104, bicarbonate 28, BUN 23, creatinine 0.9. Blood sugar 132, calcium 9.6, magnesium 1.1. Liver function test noted for alkaline phosphatase slightly elevated 135 and AST is 39. IMPRESSION AND PLAN: 1. Generalized weakness, chest discomfort with recent cardiothoracic surgery, status post valve replacement, mitral valve. The patient doing better regarding surgery. We will continue physical therapy and we will follow up clinically. 2. Iron deficiency anemia, acute blood loss secondary to recent surgery. The patient received already iron IV and we are having the problem with IV access to give any magnesium IV for hypomagnesemia. We will hold of on that for today, we will try in the morning. Continue magnesium 400 mg p.o. b.i.d. Followup clinically. 3. Acute chronic obstructive pulmonary disease exacerbation, seems doing better, less wheezing. Continue prednisone, currently on 20 mg plus inhaled bronchodilator, Xopenex and . Continue current therapy. Continue chest PT. Followup clinically. 4. Paroxysmal atrial fibrillation, hypertension, hypercholesteremia, chronic pseudogout, obesity, high cholesterol. Continue current therapy. Continue gastrointestinal and deep venous thrombosis prophylaxis. Followup clinically. The patient will come next week after discharge to get blood transfusion. Baltazar Guerra MD [facility]
[2017-05-18] MEDS: guaiFENesin 600 mg ER Tab PO SCH ×2 (10:40→17:29)
[2017-05-18] MEDS: Magnesium Oxide 400 mg Tab UD PO SCH ×2 (10:40→17:29)
--- NOTE | 2017-05-18 13:07 | PN ---
DATE: 05/16/2017 SUBJECTIVE: The patient is getting IV iron, seems tolerating it well. She still have cough, but less often and less frequent, and she seems doing well. Otherwise, no other complaint other than chest pain from recent cardiothoracic surgery. PHYSICAL EXAMINATION: VITAL SIGNS: The patient had vital signs checked. Temperature was 97.6, heart rate is 68, blood pressure 132/86, respiratory rate 20, and saturation 100% on room air. HEAD AND NECK: Normal. No JVD. No thyromegaly. CHEST: Few rhonchi on the bases, otherwise clear. Midline incision seems clear, no infections. CARDIAC: First sound and second sound normal. ABDOMEN: Soft, obese and nontender. EXTREMITIES: No edema. NEUROLOGIC: Normal. LABORATORY DATA: White count 11.7, hemoglobin 9.7, hematocrit 30.1, platelets 43. Chemistry show sodium 141, blood sugar 227. Her iron study was reported to be low as iron level 38 and total iron capacity 226 and iron saturation or transferrin saturation is 17. IMPRESSION AND PLAN: 1. Acute iron-deficiency anemia due to blood loss. Continue IV Venofer. The patient getting second dose, seems doing well. Continue current therapy. The patient will need blood transfusion as outpatient after completion of iron therapy. We will maintain the IV which is a problem to keep, but we will observe. 2. Electrolyte abnormalities. The patient almost to have potassium problem. She will continue to get potassium K-Dur 20 mEq b.i.d., also renal functions seems better after hydration, it is 0.9 and seems doing well. 3. Status post mitral valve replacement. Echo shows normal function and no paravalvular leak, no vegetations. Pericardium is clear. No bleeding. No effusions. 4. The patient has hypertension, hypercholesterolemia, generalized weakness, midline chest pain with cough. We will continue current therapy. 5. Chronic obstructive pulmonary disease with acute exacerbation. Continue steroids, continue inhaled bronchodilators, Mucomyst, chest PT and followup clinically. Continue GI and DVT prophylaxis. Continue aspirin. Also, the patient taken Coumadin for paroxysmal atrial fibrillation and we will follow up clinically. 6. Congestive heart failure, diastolic dysfunctions. We will continue Lasix. We will continue potassium and follow up clinically. The patient seems comfortable and less dyspneic. CURRENT MEDICATIONS: Mucomyst, artificial tears, Atarax, IV iron, Cepacol, Claritin, Coreg, Coumadin, vitamin D, Dulcolax, Ecotrin 81 and K-Dur 20 b.i.d., Lasix 40 p.o. b.i.d. for diastolic heart failure, Percocet for pain, promethazine with codeine for cough. Continue prednisone 30 mg, we will decrease to 20 mg gradually and taper it off. Also, the patient is getting Zestril 5 mg plus inhaled bronchodilators, Zithromax and we will follow up clinically. Baltazar Guerra MD
--- NOTE | 2017-05-18 15:28 | PN ---
DATE: 05/18/2017 REASON FOR CONSULTATION: Followup status post mitral valve repair, bioprosthetic replacement, paroxysmal atrial fibrillation, admitted with cough and shortness of breath, possible early pneumonia. SUBJECTIVE: Denies any chest pain, shortness of breath or any palpitation. PHYSICAL EXAMINATION: VITAL SIGNS: As follows, temperature afebrile, heart rate 110, and blood pressure 99/70. HEENT: PERRLA. Extraocular muscles intact. NECK: Supple. No carotid bruit or thyromegaly. CHEST: Clear to auscultation. HEART: S1 and S2, regular. ABDOMEN: Soft. EXTREMITIES: Clubbing and cyanosis negative. LABORATORY DATA: Blood workup as follows: WBC 13.8, hemoglobin , hematocrit 29.0, and platelet count 390. Chemistries; sodium , chloride 102, carbon dioxide 29, anion gap of 12, BUN 32, and creatinine 1.0. IMPRESSION: Pneumonia, status post open heart surgery, status post bioprosthetic aortic valve replacement, and paroxysmal atrial fibrillation on anticoagulation. INR 1.67. Has admitting with supratherapeutic INR. Followup chest x-ray yesterday done, improved with bibasilar infiltrates. RECOMMENDATIONS: Continue antibiotic. Continue gentle diuretic. Continue aspirin. Continue atorvastatin. Coumadin is started. Followup PT and INR. Thank you Dr. Guerra for providing me the opportunity in taking care of the patient, Dariana Mcgregor, we will repeat INR in the morning. Brittany Beebe MD
--- NOTE | 2017-05-18 16:50 | PN ---
DATE: 05/18/[address] [facility] visit on TCU. For Dr. Jimenez. SUBJECTIVE: The patient is a 62-year-old female seen sitting up in chair, participating with reconditioning on TCU with non-anemic indices with recommendations for transfusion to be done as per protocols for TCU. The patient did have an episode of hemoptysis in the recent past. She is treated for pneumonia with the hemoptysis spontaneously improving as per Dr. Arciniega. Her recent admission was for COPD, cardiomyopathy with pulmonary infiltrates, atrial fibrillation with anemia. The patient is otherwise in no acute distress this visit. She had a chest x-ray done yesterday, which was read as improved bibasilar infiltrates. OBJECTIVE: VITAL SIGNS: Temperature 98, pulse 111, respirations 18, blood pressure 99/70, pulse ox 97%. HEENT: Unremarkable. NECK: Supple. HEART: Regular rate, occasional ectopic beat. LUNGS: Rare rhonchi. ABDOMEN: Soft, nontender. EXTREMITIES: No edema. SKIN: Warm and dry. NEUROLOGIC: Awake, alert and oriented. LABORATORY DATA: The patient's labs were done. White blood cell count of 13.3, hemoglobin of 9.5 improved from 8.2 five days prior in the hospital, hematocrit of 29.0, and platelet count of 390,000 with a chem metabolic panel showing a BUN of 22 with a normal creatinine of 1.0, otherwise normal chem metabolic panel. Her INR is 1.67 today. ASSESSMENT: For this patient is that of deconditioning, anticoagulation on Coumadin, iron deficiency anemia secondary to blood loss, chronic obstructive pulmonary disease, paroxysmal atrial fibrillation, hypertension, cardiomyopathy, hemoptysis improved. The patient with recent mitral valve replacement surgery, postop day 14, I believe, with pneumonia, improving. PLAN: For this patient after conversation with Dr. Jimenez is to continue present medical regimen. We will monitor clinically and with labs with consideration for transfusion as per TCU protocols. She should be discharged as per Dr. Guerra. We will monitor clinically and with labs, with adjustment of her INR, with her Coumadin as indicated. Larry Mcdaniel MD
--- NOTE | 2017-05-18 20:46 | PN ---
DATE: 05/18/2017 REFERRING PHYSICIAN: Baltazar Guerra MD. SUBJECTIVE: The patient is sitting up in a reclining chair. Night was unremarkable. Family is at bedside. Since yesterday, there is no more blood in the mouth. Still has a cough and clear sputum. No nausea, vomiting, or diarrhea. No leg pain or leg swelling. OBJECTIVE: GENERAL: No acute distress. VITAL SIGNS: Temperature 98, heart rate is 110, respiratory rate is 20, blood pressure 111/77, pulse ox 95% on room air. HEENT: Moist mucous membranes. No ulcer or thrush noted. NECK: Supple. No JVD. LUNGS: Has a fair airflow with few rhonchi. HEART: S1 and S2. ABDOMEN: Soft, nontender, no organomegaly. EXTREMITIES: There is no edema. NEUROLOGIC: Awake, alert, and follows simple commands. MEDICATIONS: She is on Mucomyst inhaled q. 6 hours, Artificial tears to both eyes, hydroxizine 25 mg q. 6 hours p.r.n., Benadryl 25 mg at bedtime p.r.n., Cepacol lozenges q.12 hours one p.r.n., Claritin 10 mg daily, colchicine 0.6 mg daily, Coreg 12.5 mg twice a day, Coumadin 5 mg daily, vitamin D 50,000 units subcutaneously weekly, Dulcolax p.r.n. basis, albuterol/Atrovent nebulizer q. 6 hours, Ecotrin 81 mg daily, ferrous sulfate 324 mg 3 times a day, potassium 20 mEq twice a day, Lasix 40 mg twice a day, Lipitor 10 mg daily, magnesium oxide 400 mg twice a day, Mucinex LA 600 mg twice a day, Percocet 5/325 one tablet q. 4 hours p.r.n., Phenergan with codeine 5 mL q. 4 hour p.r.n., prednisone 20 mg daily, Protonix 40 mg daily, Singulair 10 mg daily, multivitamins daily, Xopenex inhale q. 8 hours p.r.n. and Zestril 5 mg daily. LABORATORY DATA: Shows hemoglobin 9.5, hematocrit 29.0, WBC 13.3, platelet is 390. INR 1.67. Sodium 139, potassium 2.8, chloride 102, bicarbonate 29, BUN 22, creatinine 1.0, glucose is 200, and calcium is 9.7. IMPRESSION AND PLAN: Chronic obstructive lung disease, cardiomyopathy, pulmonary infiltrates, may have sleep apnea syndrome, atrial fibrillation. Pulmonary point of view, doing okay. We will cut down prednisone to 10 mg daily, inhaled bronchodilator, gastric prophylaxis, deep vein thrombosis prophylaxis. Continue therapy. Thank you and we will follow with you. Brittany Arciniega MD
[2017-05-19] MEDS: Acetylcysteine 20% Inhal Soln (4ml) IH SCH ×2 (03:00→07:33)
[2017-05-19] MEDS: Albuterol-Ipratrop 3 mg / 0.5 (3 ml) UD IH SCH ×2 (03:00→07:33)
[2017-05-19] MEDS: Aritificial Tears (15ml) OP SCH ×4 (03:03→12:15)
[2017-05-19] MEDS: Pantoprazole 40 mg EC Tab PO SCH (06:34)
[2017-05-19] MEDS: Potassium Chloride 20 mEq ER Tab PO SCH (08:22)
[2017-05-19] MEDS: Multivitamin Therapeutic Tab PO SCH (08:23)
[2017-05-19] MEDS: Magnesium Oxide 400 mg Tab UD PO SCH (09:01)
[2017-05-19] MEDS: guaiFENesin 600 mg ER Tab PO SCH (09:02)
[2017-05-19 10:46] VITALS: BP 104/75; PULSE 104; RESP 78; TEMP 98.9; O2SAT 96
--- NOTE | 2017-05-19 11:52 | PN ---
DATE: 05/19/2017 REASON FOR CONSULTATION AND FOLLOWUP: Status post mitral valve replacement, bioprosthetic replacement, paroxysmal atrial fibrillation, admitted with cough and pneumonia. Continue care at Transitional Care Unit. SUBJECTIVE: Denies any chest pain, shortness of breath or any palpitation. Feels a lot better. OBJECTIVE: GENERAL: Walking in the hallway, not in acute distress. VITAL SIGNS: Temperature afebrile, heart rate 85, and blood pressure 131/90. HEENT: PERRLA, intact. NECK: Supple. No carotid bruits. No thyromegaly. CHEST: Clear to auscultation. HEART: S1 and S2, regular. ABDOMEN: Soft. EXTREMITIES: Clubbing and cyanosis negative. LABORATORY DATA: WBC 13.3, hemoglobin 9.9, hematocrit 29.0, platelet count 390. Chemistry shows sodium 139, potassium 3.8, chloride 102, carbon dioxide 29, anion gap of 12, BUN of 22, creatinine 1.0. DIAGNOSTIC DATA: Repeat chest x-ray shows improvement in bibasilar infiltrate. IMPRESSION: A 62-year-old female with a past medical history significant for severe mitral regurgitation status post recently two to three weeks ago, open heart surgery for mitral valve replacement, bioprosthetic, history of paroxysmal atrial fibrillation. The patient was on anticoagulation. The patient was discharged to the retirement, but readmitted here at the [facility] because of the cough and pneumonia. The patient is on anticoagulation, INR is subtherapeutic, increased yesterday to 5 mg today. INR is pending. Repeat chest x-ray shows improvement in the pneumonia. RECOMMENDATIONS: Continue anticoagulation, goal is to keep INR between 2 to 2.5. Continue carvedilol. Continue aspirin. We will follow with you. If the patient been in normal sinus for 3 months,we will discontinue anticoagulant and discussed with the patient. Brittany Beebe MD
--- NOTE | 2017-05-19 15:15 | PN ---
DATE: 05/19/2017 This is patient's hospital visit on the TCU. For Dr. Jimenez. SUBJECTIVE: The patient is a 62-year-old female now getting dressed for discharge home today as per Dr. Guerra with Dr. Arciniega also in attendance at this visit her provider scribe. The patient is requesting to go home on steroids for her breathing which Dr. Arciniega reports he will do as indicated. The patient is now reconditioned after 7 days on TCU, anxious to go home after approximately 20 plus days in the hospital. With this her hemoptysis has significantly improved, her COPD is also improved as was her pneumonia. She also suffers from cardiomyopathy, atrial fibrillation and anemia. OBJECTIVE: VITAL SIGNS: Temperature 98.9, pulse 85, respirations 12, blood pressure 131/90, pulse ox 96%. HEENT: Unremarkable. NECK: Supple. HEART: Regular rate. LUNGS: Rare rhonchi. ABDOMEN: Soft, obese, nontender. EXTREMITIES: No edema. SKIN: Warm and dry. NEUROLOGIC: Awake, alert and oriented x3. LABORATORY DATA: The patient's labs were not done today, they were to be repeated in the morning; however, her labs from yesterday showed a hemoglobin of 9.5 improved from 8.2 on 05/13 with a chem metabolic panel within normal range except for nonfasting glucose of 200. ASSESSMENT: For this patient is that of deconditioning, anticoagulation on Coumadin, iron deficiency anemia secondary to blood loss, chronic obstructive pulmonary disease, paroxysmal atrial fibrillation, hypertension, cardiomyopathy, hemoptysis, improved; also being treated for pneumonia with improvement. PLAN: For this patient after conversation with Dr. Jimenez is to continue present medical regimen. Yesterday, her INR was 1.67, it was not repeated today. However, she is taking Coumadin 5 mg daily as per Dr. Beebe. We would recommend to continue that with a plan for her to followup with Dr. Jimenez in the office in approximately 2 days time for a repeat of her labs to consider a transfusion as indicated. However, her hemoglobin has significantly improved to 9.5 with her INR also be checked at that time. Otherwise, she is to continue present medical regimen as per her primary Dr. Guerra and Dr. Arciniega with followup with Dr. Jimenez in 2 days for repeat labs with consideration for transfusions as indicated. Larry Mcdaniel MD
--- NOTE | 2017-05-19 18:34 | PN ---
DATE: 05/18/2017 SUBJECTIVE: The patient is seen sitting in chair. She is awake, she is alert. She is complaining of cough. She is also complaining of copious white phlegm. PHYSICAL EXAMINATION: GENERAL: Elderly lady sitting in chair. VITAL SIGNS: Blood pressure 108/74, respiratory rate 18, temperature 98.4, heart rate 110. HEENT: Normocephalic, atraumatic, positive pallor. NECK: Supple, no JVD. LUNGS: Bilateral equal air entry, bilateral equal expansion. CARDIAC: S1 and S2, regular rate and rhythm, positive murmur, no rub. EXTREMITIES: No lower extremity edema. LABORATORY DATA: WBC 13.3, hemoglobin 9.5, hematocrit 29, platelets 390. Sodium 139, potassium 3.8, chloride 102, CO2 of 29, BUN 22, creatinine 1.0, glucose 200, and calcium 9.7. ASSESSMENT: 1. Hyponatremia, improving. 2. Resolved acute kidney injury. 3. Decompensated congestive heart failure, improving. 4. Bilateral pneumonia. 5. Chronic obstructive pulmonary disease. PLAN: 1. Continue Aldactone 25 b.i.d. 2. Complete antibiotics. 3. Continue Lasix. 4. Close outpatient followup. Stacia Cornejo MD
--- NOTE | 2017-05-19 23:22 | PN ---
DATE: 05/19/2017 PULMONARY PROGRESS NOTE REFERRING PHYSICIAN: Dr. Guerra. SUBJECTIVE: She is sitting up in the chair, being discharged home. Feels better. No headache. No rhinitis. No nausea. Decreased cough. No dysuria. No leg pain or leg swelling. OBJECTIVE: GENERAL: In no acute distress. VITAL SIGNS: Temperature is 98, heart rate is 85, respiratory rate is 20, blood pressure is 104/75, and pulse ox is 96% on room air. HEENT: Moist mucous membranes. No ulcer or thrush noted. NECK: Supple. No JVD. LUNGS: Has a fair airflow with few rhonchi. HEART: S1 and S2. ABDOMEN: Soft and nontender. No organomegaly. EXTREMITIES: No edema. NEUROLOGIC: Awake, alert, and follow simple commands. LABORATORY DATA: Reviewed and shows hemoglobin 9.5, hematocrit 29.0. WBC 13.3, platelets 390. INR 1.67. Sodium 139, potassium 3.8, chloride 102, bicarbonate 29, BUN 22, creatinine 1.0, glucose is 200, calcium is 9.7, MEDICATIONS: Reviewed and noted. No new change in medications since yesterday. IMPRESSION AND PLAN: Chronic obstructive lung disease, cardiomyopathy, pulmonary infiltrates, may have sleep apnea syndrome, atrial fibrillation. From pulmonary point of view, doing okay. May discharge home on p.o. Prednisone, inhaled bronchodilator. Outpatient attended sleep study and PFT. Followup with PMD. Thank you and we will follow up with you. Brittany Arciniega MD
--- NOTE | 2017-05-20 02:47 | DS ---
HISTORY OF PRESENT ILLNESS: The patient is a 62-year-old female status post valve replacement. She came into the hospital with coughing and dyspnea and short of breath. The patient was treated for acute COPD exacerbation, congestive heart failure, was given IV Lasix, potassium, and was oxygen, nebulizer treatment, IV steroids, and cough medicines plus short course of antibiotics including Maxipime and then doxycycline followed by doxycycline alone. The patient clinically improved. She was in the Medical Floor transferred to this Transitional Care Unit. She did very well. The patient is seen by Pulmonary consult Dr. Arciniega, Cardiology consult Dr. Beebe, ID consult Dr. Valenzuela. The patient's cough improved. Her mid sternotomy area was clean. No wound infections. She did have physical therapy for generalized weakness and postoperative. Her echo shows good valve placement. No paravalvular leak. No pericardial effusions or hemopericardium. Clinically stable. Good LV function. The patient does have chronic probably diastolic heart failure. She is improved with Lasix. The patient was tapered off steroids. She was switched to p.o. prednisone. Seen by telecommunicator and the patient was discharged home to be followed up. The patient does have a history of paroxysmal atrial fibrillation for which she takes Coumadin for it. Her INR is therapeutic and she was then changed on Coumadin 5 mg daily. PHYSICAL EXAMINATION: DISCHARGE VITAL SIGNS: Temperature 98.4, heart rate 85, blood pressure 131/90, respirations 18, and saturation 94%. HEAD/NECK: Normal. No JVD. No thyromegaly. CHEST: Midline sternotomy clean. Clean wound. LUNGS: Clear. No rales. No crepitations. No wheezing. ABDOMEN: Soft, obese, and nontender. EXTREMITIES: No edema. NEUROLOGIC: Normal. LABORATORY DATA: Last lab was 05/18/2017, which showed white count of 13.3, hemoglobin 9.5, hematocrit 29, and her platelets was 390. Her chemistry shows sodium 139, potassium 3.8, chloride 102, bicarbonate 29, BUN 22, creatinine is 1. Blood sugar 132 and did go up to 200. The patient also had magnesium. IV access problem. She was given magnesium p.o. 400 mg b.i.d. Could not get IV access in hand. She refused any further sticks. The patient while she is in the hospital, she had physical therapy, seen by multiple consultants and got IV iron for her anemia. Dr. Jimenez has seen her for anemia. She needs blood transfusion, which will be done as an outpatient. The patient is stable. We discharged home to be followed up in a week. Home medications were given and was called in and sent electronically to [facility] on [address]. DISCHARGE DIAGNOSES: 1. Status post mitral valve replacement and thoracotomy. 2. Generalized weakness, deconditioning. 3. Acute chronic obstructive pulmonary disease exacerbation. 4. Acute diastolic heart failure. 5. Paroxysmal atrial fibrillation. 6. Anemia requiring IV iron and possibly blood transfusion, it will be scheduled as an outpatient due to IV access problem. 7. Chronic arthritis, pseudogout. 8. Hypercholesterolemia. 9. Hypertension. 10. Overweight. PLAN: Discharged the patient. Followup as an outpatient. Continue Coumadin. Monitor PT/INR. Percocet was sent electronically twice a day for 5 more days. See her next week. Medications on discharge is Combivent, artificial tears, aspirin 81, Lipitor, simvastatin 20, Dulcolax tablet, Coreg 12.5 mg b.i.d., Benadryl, vitamin D, iron p.o. b.i.d., Lasix 40 b.i.d., Zestril 5 mg daily, magnesium oxide 400 mg b.i.d., Singulair 10 once a day, multivitamins once a day, Protonix 40 once a day, K-Dur 20 b.i.d., prednisone was given 10 mg for 2 more days, to be followed up by 5 mg 2 more days, and discontinue. The patient was given prescription of prednisone by Dr. Arciniega, however, advised to follow up with Dr. Arciniega, warfarin and Coumadin 5 mg daily. Baltazar Guerra MD
--- NOTE | 2017-05-20 09:15 | CP.PCM.PCO ---
Physician Communication Note - Physician Communication Note Physician Communication Note: this health technical writer was on vacation, pt will be seen today
--- NOTE | 2017-05-20 13:04 | CP.PCM.PCO ---
Physician Communication Note - Physician Communication Note Physician Communication Note: pt was d/c before this technical writer alfred
== END 2017-05-19 15:46 | disposition home or self-care (01) | DRG 945 ==
LOC: TRCU 16:54
PROVIDERS: ADMIT Internal Medicine; ATTEND Internal Medicine
PROC: 3E0F7GC Introduction of Other Therapeutic Substance into Respiratory Tract, Via Natural or Artificial Opening (ICD-10-PCS; 2017-05-12)
PROC: F07Z9ZZ Gait Training/Functional Ambulation Treatment (ICD-10-PCS; principal; 2017-05-13)
PROC: F08Z4ZZ Home Management Treatment (ICD-10-PCS; 2017-05-13)
DX: R53.1 Weakness (principal); I50.33 Acute on chronic diastolic (congestive) heart failure; J18.9 Pneumonia, unspecified organism; I42.9 Cardiomyopathy, unspecified; E46 Unspecified protein-calorie malnutrition; J44.0 Chronic obstructive pulmonary disease with (acute) lower respiratory infection; I13.0 Hypertensive heart and chronic kidney disease with heart failure and stage 1 through stage 4 chronic kidney disease, or unspecified chronic kidney disease; K22.10 Ulcer of esophagus without bleeding; E87.1 Hypo-osmolality and hyponatremia; J44.1 Chronic obstructive pulmonary disease with (acute) exacerbation; R04.2 Hemoptysis; D62 Acute posthemorrhagic anemia; I48.0 Paroxysmal atrial fibrillation; F41.9 Anxiety disorder, unspecified; E78.00 Pure hypercholesterolemia, unspecified; N18.1 Chronic kidney disease, stage 1; G56.00 Carpal tunnel syndrome, unspecified upper limb; I48.2 Chronic atrial fibrillation; I25.10 Atherosclerotic heart disease of native coronary artery without angina pectoris; E87.6 Hypokalemia; E83.42 Hypomagnesemia; T50.2X5A Adverse effect of carbonic-anhydrase inhibitors, benzothiadiazides and other diuretics, initial encounter; D50.0 Iron deficiency anemia secondary to blood loss (chronic); E66.9 Obesity, unspecified; I35.8 Other nonrheumatic aortic valve disorders; Z79.01 Long term (current) use of anticoagulants; Z90.49 Acquired absence of other specified parts of digestive tract; Z95.2 Presence of prosthetic heart valve; Z87.891 Personal history of nicotine dependence

== ENCOUNTER 2017-06-17 12:39 | Inpatient (IN) | payer MEDICARE, OTHER ==
[2017-06-17 12:39] VITALS: BMI 26.2
[2017-06-17] MEDS ORDERED: Albuterol-Ipratrop 3 mg / 0.5 (3 ml) UD IH STA ×2 (12:57)
--- NOTE | 2017-06-17 13:00 | ED PDOC ---
Arrival/HPI - General Chief Complaint: Chest Pain Time Seen by Provider: 06/17/17 12:41 Historian: Patient - History of Present Illness Narrative History of Present Illness (Text): 06/17/17 12:50 Dariana Mcgregor is a 62 year old female, whose past medical history includes afrib ( on Coumadin) and COPD, who presents to the emergency department complaining of chest pain that began two days ago. Patient reports today when she woke up it became worse and pain radiates to her left arm. Patient denies any trauma or other complaints. PMD: Dr. Lin Time/Duration: < week Symptom Onset: Sudden Symptom Course: Worsening Activities at Onset: Light Context: Home Past Medical History - Provider Review Nursing Documentation Reviewed: Yes - Infectious Disease Hx of Infectious Diseases: None - Tetanus Immunization Tetanus Immunization: Unknown - Reproductive Currently : No - Past Medical History Past Medical History: No Previous - Cardiac Hx Cardiac Disorders: Yes Hx Pacemaker: No Other/Comment: Mitral Valve Replacement - Pulmonary Hx Respiratory Disorders: Yes Hx Asthma: Yes Hx Chronic Obstructive Pulmonary Disease (COPD): Yes - Neurological Hx Neurological Disorder: Yes Hx Dizziness: Yes Hx Migraine: Yes - HEENT Hx HEENT Disorder: No - Renal Hx Renal Disorder: No - Endocrine/Metabolic Hx Endocrine Disorders: No - Hematological/Oncological Hx Blood Disorders: No - Integumentary Hx Dermatological Disorder: No - Musculoskeletal/Rheumatological Hx Falls: No - Gastrointestinal Hx Gastrointestinal Disorders: No - Genitourinary/Gynecological Hx Genitourinary Disorders: No - Psychiatric Hx Emotional Abuse: No Hx Physical Abuse: No Hx Substance Use: No - Surgical History Other/Comment: Mitral Valve Replacement - Anesthesia Hx Anesthesia: Yes Hx Anesthesia Reactions: No Hx Malignant Hyperthermia: No - Suicidal Assessment Feels Threatened In Home Enviroment: No Family/Social History - Physician Review Nursing Documentation Reviewed: Yes Family/Social History: Unknown Family HX Smoking Status: Never Smoked Hx Alcohol Use: Yes (SOCIALLY) Amount per day: 6 Hx Substance Use: No Hx Substance Use Treatment: No Allergies/Home Meds Allergies/Adverse Reactions: Allergies cinnamon Allergy (Intermediate, Verified 05/16/17 17:07) Home Medications: Home Meds Medication Instructions Recorded Confirmed Pantoprazole [Protonix EC Tab] 40 mg PO DAILY 02/23/17 06/17/17 Albuterol HFA [Ventolin HFA 90 1 puff IH BID 03/14/17 06/17/17 mcg/actuation (8 g)] Aspirin [[place] Aspirin] 81 mg PO DAILY 03/14/17 06/17/17 Cetirizine HCl [Zyrtec] 10 mg PO DAILY 03/14/17 06/17/17 Cholecalciferol (Vitamin D3) 50,000 unit PO Q7D 03/14/17 06/17/17 [Vitamin D3] Colchicine [Colcrys] 0.6 mg PO DAILY 03/14/17 06/17/17 ALPRAZolam [Xanax] 0.25 mg PO Q8H PRN 05/09/17 06/17/17 Acetaminophen/Codeine 1 tab PO Q4H PRN 05/09/17 06/17/17 [Tylenol/Codeine 300 MG/30 MG] Acetylcysteine 20% 2 ml IH Q6 05/09/17 06/17/17 Albuterol 0.083% [Albuterol 0.083% 3 ml IH Q6 05/09/17 06/17/17 Inhal Valeria (2.5 mg/3 ml) UD] Atorvastatin [Lipitor] 10 mg PO HS 05/09/17 06/17/17 Benzocaine/Menthol [Cepacol Sore 1 lozenge PO QID 05/09/17 06/17/17 Throat Lozenge] Bisacodyl [Dulcolax] 10 mg CO DAILY PRN 05/09/17 06/17/17 Carvedilol [Coreg] 6.25 mg PO Q12 05/09/17 06/17/17 Dextran 70/Hypromellose/Pf 1 drop BOTHEYES Q4H PRN 05/09/17 06/17/17 [Artificial Tears Drops] DiphenhydrAMINE [Benadryl] 25 mg PO HS PRN 05/09/17 06/17/17 Docusate Sodium [[place]' 200 mg PO HS 05/09/17 06/17/17 Laxative] Dronedarone [Multaq] 400 mg PO BID 05/09/17 06/17/17 Guaifenesin [Expectorant Cough 200 mg PO Q6H PRN 05/09/17 06/17/17 Syrup] Magnesium Oxide [Mgo] 400 mg PO BID 05/09/17 06/17/17 Polyethylene Glycol 3350 [Miralax] 17 gm PO DAILY PRN 05/09/17 06/17/17 Warfarin [Coumadin] 3 mg PO DAILY 05/09/17 06/17/17 Review of Systems - Review of Systems Constitutional: absent: Fevers Eyes: absent: Vision Changes Respiratory: absent: SOB Cardiovascular: Chest Pain Gastrointestinal: absent: Abdominal Pain Genitourinary Female: absent: Dysuria Musculoskeletal: absent: Back Pain Neurological: absent: Headache Endocrine: absent: Polyuria Physical Exam Vital Signs Reviewed: Yes Vital Signs Temp Pulse Resp BP Pulse Ox 06/17/17 17:08 98/50 L 06/17/17 15:26 88 18 91/38 L 100 06/17/17 12:51 97.5 F L 75 18 92/55 L 100 Temperature: Afebrile Blood Pressure: Hypotensive Pulse: Regular Respiratory Rate: Normal Appearance: Positive for: Well-Appearing, Non-Toxic, Comfortable Pain Distress: None Mental Status: Positive for: Alert and Oriented X 3 - Systems Exam Head: Present: Atraumatic, Normocephalic Pupils: Present: PERRL Extroacular Muscles: Present: EOMI Conjunctiva: Present: Normal Respiratory/Chest: Present: Wheezes (bilateral wheezing). No: Clear to Auscultation, Good Air Exchange, Respiratory Distress, Accessory Muscle Use Cardiovascular: Present: Regular Rate and Rhythm, Normal S1, S2. No: Murmurs Lower Extremity: Present: Normal Inspection, NORMAL PULSES, Normal ROM, Neurovascularly Intact, Capillary Refill < 2 s. No: Edema, Tenderness, Swelling , Deformity Neurological: Present: GCS=15, CN II-XII Intact, Speech Normal Skin: Present: Warm, Dry, Normal Color. No: Rashes Psychiatric: Present: Alert, Oriented x 3, Normal Insight, Normal Concentration Medical Decision Making ED Course and Treatment: 06/17/17 EKG: Ordered, reviewed, and independently interpreted the EKG. Rate : 81 BPM Rhythm : NSR Interpretation : No ST-segment elevations or depressions, no T-wave inversions, normal intervals. Comparison : No changes 06/17/17 13:35 Chest X-ray: Creator : Alec Gay MD COMPARISON: 05/17/2017 FINDINGS: LUNGS: No active pulmonary disease. PLEURA: No significant pleural effusion identified, no pneumothorax apparent. CARDIOVASCULAR: Moderate cardiomegaly OSSEOUS STRUCTURES: Sternal wires VISUALIZED UPPER ABDOMEN: Normal. OTHER FINDINGS: None. IMPRESSION: No active disease. 06/17/17 17:23 noted inr, as per dr lin reports level was 8 last week, but "still took my meds"., even though advised to dc. h/h stable no active bleeding, vit k given. - Lab Interpretations Lab Results: 06/17/17 14:00 06/17/17 14:00 Lab Results 06/17/17 14:00: Sodium 136, Potassium 4.3, Chloride 103, Carbon Dioxide 25, Anion Gap 12, BUN 10, Creatinine 1.2, Est GFR ( Amer) 55, Est GFR (Non- Af Amer) 45, Random Glucose 128 H, Calcium 9.2, Magnesium 1.6 L, Total Bilirubin 0.6, AST 33, ALT 22, Alkaline Phosphatase 166 H D, Lactate Dehydrogenase 902 H, Total Creatine Kinase 137, Troponin I 0.02 D, NT-Pro-B Natriuret Pep 1790 H, Total Protein 7.2, Albumin 3.6, Globulin 3.6, Albumin/ Globulin Ratio 1.0 L 06/17/17 14:00: WBC 7.3 D, RBC 3.26 L, Hgb 9.5 L, Hct 29.1 L, MCV 89.3, MCH 29.1, MCHC 32.6, RDW 15.7 H, Plt Count 328, MPV 9.2, Gran % 70.2 H, Lymph % ( Auto) 16.3 L, [place] % (Auto) 9.8 H, Eos % (Auto) 3.6, Baso % (Auto) 0.1, Gran # 5.11, Lymph # 1.2, [place] # 0.7 H, Eos # 0.3, Baso # 0.01 I have reviewed the lab results: Yes - RAD Interpretation Radiology Orders: 06/17/17 12:56 CHEST PORTABLE [RAD] Stat Visual And Stock Associate: Radiologist - EKG Interpretation Interpreted by ED Physician: Yes Type: 12 lead EKG Comparison: Com.w/previous EKG - Medication Orders Current Medication Orders: Albuterol/Ipratropium (Duoneb 3 Mg/0.5 Mg (3 Ml) Ud) 3 ml IH [id number] [id number] Last Admin: 06/19/17 01:38 Dose: 3 ml Albuterol/Ipratropium (Duoneb 3 Mg/0.5 Mg (3 Ml) Ud) 3 ml IH Q2H PRN PRN Reason: Shortness of Breath Alprazolam (Xanax) 0.25 mg PO Q8H PRN; Protocol PRN Reason: Anxiety Stop: 06/25/17 08:11 Aspirin (Ecotrin) 81 mg PO DAILY [facility] Last Admin: 06/18/17 10:30 Dose: 81 mg Atorvastatin Calcium (Lipitor) 10 mg PO HS [facility] Last Admin: 06/18/17 21:39 Dose: 10 mg Azithromycin (Zithromax) 500 mg PO DAILY [facility] PRN Reason: Protocol Bisacodyl (Dulcolax) 10 mg CO DAILY PRN PRN Reason: Constipation Furosemide (Lasix) 40 mg PO DAILY [facility] Guaifenesin (Robitussin) 200 mg PO Q6H PRN PRN Reason: Cough Last Admin: 06/18/17 10:30 Dose: 200 mg Magnesium Oxide (Mag-Ox) 400 mg PO BID [facility] Last Admin: 06/18/17 18:28 Dose: 400 mg Methylprednisolone (Solu-Medrol) 40 mg IVP Q12 [facility] Last Admin: 06/18/17 21:39 Dose: 40 mg IVP Administration Document 06/18/17 21:39 CDL (Rec: 06/18/17 21:39 CDL [id number]) Charges for Administration # of IVP Administrations 1 Montelukast Sodium (Singulair) 10 mg PO HS [facility] Last Admin: 06/18/17 21:39 Dose: 10 mg Pantoprazole Sodium (Protonix Ec Tab) 40 mg PO DAILY [facility] Last Admin: 06/18/17 10:30 Dose: 40 mg Polyethylene Glycol (Miralax) 17 gm PO DAILY PRN PRN Reason: Constipation Last Admin: 06/18/17 10:30 Dose: 17 gm Roflumilast (Daliresp) 500 mcg PO DAILY [facility] Discontinued Medications Albuterol/Ipratropium (Duoneb 3 Mg/0.5 Mg (3 Ml) Ud) 3 ml IH STAT STA Stop: 06/17/17 12:58 Last Admin: 06/17/17 13:21 Dose: 3 ml Albuterol/Ipratropium (Duoneb 3 Mg/0.5 Mg (3 Ml) Ud) 3 ml IH STAT STA Stop: 06/17/17 12:58 Last Admin: 06/17/17 13:21 Dose: 3 ml Benzocaine/Menthol (Cepacol Sore Throat) 1 flower MT STAT STA Stop: 06/18/17 03:30 Last Admin: 06/18/17 03:35 Dose: 1 flower Furosemide (Lasix) 20 mg IVP STAT STA Stop: 06/17/17 16:42 Last Admin: 06/17/17 17:08 Dose: Not Given Non-Admin Reason: BP Parameters Not Met MAR Blood Pressure Document 06/17/17 17:08 YP (Rec: 06/17/17 17:08 YP [id number]) Blood Pressure Blood Pressure (100/60-150/90) 98/50 Phytonadione 10 mg/ Sodium (Chloride) 51 mls @ 100 mls/hr IV ONCE ONE Stop: 06/17/17 17:52 Last Admin: 06/17/17 17:48 Dose: 100 mls/hr eMAR Start Stop Document 06/17/17 17:48 YP (Rec: 06/17/17 17:48 YP [id number]) Intravenous Solution Start Date 06/17/17 Start Time 17:48 Sodium Chloride (Sodium Chloride 0.9%) 1,000 mls @ 50 mls/hr IV .Q20H GUALBERTO Stop: 06/18/17 17:00 Last Admin: 06/18/17 10:30 Dose: 50 mls/hr eMAR Start Stop Document 06/18/17 10:30 DH (Rec: 06/18/17 10:31 DH [id number]) Intravenous Solution Start Date 06/18/17 Start Time 10:31 Lorazepam (Ativan) 0.5 mg PO ONCE ONE PRN Reason: Protocol Stop: 06/17/17 13:26 Last Admin: 06/17/17 14:02 Dose: Magnesium Oxide (Mag-Ox) 400 mg PO DAILY GUALBERTO Last Admin: 06/18/17 10:30 Dose: 400 mg Methylprednisolone (Solu-Medrol) 125 mg IVP STAT STA Stop: 06/17/17 12:58 Last Admin: 06/17/17 14:02 Dose: 125 mg IVP Administration Document 06/17/17 14:02 YP (Rec: 06/17/17 14:02 YP [id number]) Charges for Administration # of IVP Administrations 1 Phytonadione (Vitamin K Tab) 5 mg PO ONCE ONE Stop: 06/17/17 17:47 Last Admin: 06/17/17 19:24 Dose: 5 mg - Scribe Statement The provider has reviewed the documentation as recorded by the Sohaibe Migdalia Palacios Provider Scribe Attestation: All medical record entries made by the Sohaibe were at my direction and personally dictated by me. I have reviewed the chart and agree that the record accurately reflects my personal performance of the history, physical exam, medical decision making, and the department course for this patient. I have also personally directed, reviewed, and agree with the discharge instructions and disposition. Disposition/Present on Arrival - Present on Arrival Any Indicators Present on Arrival: No History of DVT/PE: No History of Uncontrolled Diabetes: No Urinary Catheter: No History of Decub. Ulcer: No History Surgical Site Infection Following: None - Disposition Have Diagnosis and Disposition been Completed?: Yes Diagnosis: COPD exacerbation, CHF (congestive heart failure), Supratherapeutic INR Disposition: HOSPITALIZED Disposition Time: 06:00 Condition: STABLE
--- NOTE | 2017-06-17 13:34 | RAD ---
HISTORY: cp COMPARISON: 05/17/2017 FINDINGS: LUNGS: No active pulmonary disease. PLEURA: No significant pleural effusion identified, no pneumothorax apparent. CARDIOVASCULAR: Moderate cardiomegaly OSSEOUS STRUCTURES: Sternal wires VISUALIZED UPPER ABDOMEN: Normal. OTHER FINDINGS: None. IMPRESSION: No active disease.
[2017-06-17 14:13] LABS: BASO # 0.01 K/mm3 (0.0-2.0); BASO % 0.1 % (0.0-3.0); EOS # 0.3 (0.0-0.7); EOS % 3.6 % (1.5-5.0); GRAN # 5.11 (1.4-6.5); GRAN % 70.2 % (50.0-68.0); HEMATOCRIT 29.1 % (36.0-48.0); LYMPH # 1.2 (1.2-3.4); LYMPH % 16.3 % (22.0-35.0); MEAN CELL VOLUME 89.3 fl (80.0-105.0); MEAN CORPUSCULAR HEMOGLOBIN 29.1 pg (25.0-35.0); MEAN CORPUSCULAR HGB CONC 32.6 g/dl (31.0-37.0); MEAN PLATELET VOLUME 9.2 fl (7.0-11.0); MONO # 0.7 (0.1-0.6); MONO % 9.8 % (1.0-6.0); RED CELL DISTRIBUTION WIDTH 15.7 % (11.5-14.5); WHITE BLOOD COUNT 7.3 10^3/ul (4.5-11.0)
[2017-06-17 14:30] LABS: BILIRUBIN,TOTAL 0.6 mg/dL (0.2-1.3); CALCIUM 9.2 mg/dL (8.4-10.5); MAGNESIUM 1.6 mg/dL (1.7-2.2); POTASSIUM 4.3 mmol/L (3.6-5.0); TOTAL PROTEIN 7.2 g/dL (5.8-8.3)
[2017-06-17 14:31] LABS: TROPONIN I 0.02 ng/mL
[2017-06-17 17:20] LABS: INR 17.64 (0.93-1.08)
[2017-06-17 17:21] LABS: PARTIAL THROMBOPLASTIN TIME 127.6 Seconds (25.1-36.5)
[2017-06-17] MEDS ORDERED: Phytonadione 10 MG in Sodium Chloride 0.9% 50 ML IV ONE (17:22)
--- NOTE | 2017-06-17 23:59 | CARD ---
APPROVED REPORT EKG Measurement Heart [id number] AL 156P [id number] <Conclusion> Ectopic Atrial rhythm Left axis deviation Minimal voltage criteria for LVH, may be normal variant Possible Anterior infarct, age undetermined T wave abnormality, consider inferolateral ischemia Abnormal ECG
[2017-06-18] MEDS ORDERED: Benzocaine/Menthol (Cepacol) Lozenge MT STA (03:29)
--- NOTE | 2017-06-18 04:32 | CON ---
DATE:06/17/2017 REASON FOR CONSULTATION AND FOLLOWUP: Chest pain, COPD exacerbation possible, incidental finding of elevated INR, severe (INR is 17.64, PT 203, and APTT 127.6). BRIEF CLINICAL HISTORY: This is a 62-year-old female with past medical history significant for severe mitral regurgitation, status post open heart surgery, MVR bioprosthetic, history of paroxysmal atrial fibrillation, multiple admissions prior to open heart surgery with recurrent paroxysmal atrial fibrillation and severe mitral regurgitation for more than two years, ultimately finally the patient agreed for mitral valve surgery status post re-catheterization done, mild nonobstructive coronary artery disease. Two years ago, the patient had a cardiac catheterization, nonobstructive coronary artery disease, who came in today with a complaint of right-sided chest pain and shortness of breath possibly secondary to acute exacerbation of COPD, but incidental finding was severely elevated PT/INR, so the patient was admitted. The patient denies any chest pain, now denies any shortness of breath, denies any palpitation now. PAST MEDICAL HISTORY: Significant for paroxysmal atrial fibrillation, mitral valve prolapse, severe mitral regurgitation, and mitral valve bioprosthetic surgery done in 04/2017, around six weeks ago. PREVIOUS CARDIAC WORKUP: As follows: The patient had a cardiac catheterization done in 04/[address] Delatorre, mid LAD 50% of stenosis, prior two years ago the patient had another cardiac catheterization done with mild CAD. At this time, the cath was done because the patient was being evaluated for surgery and complaining of chest pain, so re-catheterization was done as suggested by the surgeon. PAST SURGICAL HISTORY: Significant for cholecystectomy, carpal tunnel syndrome, bunionectomy, removal of bunion from the foot and most recently in the middle 04/2017, the patient had open heart surgery, bioprosthetic MVR was done in [facility]. Most recent echocardiography done on 05/10/2017 showed normal size, ejection fraction of 55%, trace aortic regurgitation, aortic sclerosis, mild aortic stenosis, trace mitral regurgitation, mitral annular calcification, [id number] tricuspid regurgitation, RV systolic pressure of 37, trace pericardial effusion, status post bioprosthetic mitral valve replacement, status post open heart surgery twp to three weeks ago and bioprosthetic valve was replaced, mitral valve appears well seated. ALLERGIES: NO KNOWN DRUG ALLERGIES. CURRENT MEDICATIONS: The patient at home taking Coumadin 3 mg daily, MiraLax, magnesium, guaifenesin, Colace, colchicine, cholecalciferol, aspirin, albuterol, and Xanax. REVIEW OF SYSTEMS: As per HPI. PHYSICAL EXAMINATION: VITAL SIGNS: As follows: Temperature afebrile, heart rate 80 and blood pressure 98/50. HEENT: PERRLA. Extraocular muscles intact. NECK: Supple. No carotid bruits. No thyromegaly. CHEST: Clear to auscultation. HEART: S1 and S2, regular. ABDOMEN: Soft. EXTREMITIES: Clubbing and cyanosis negative. LABORATORY DATA: Blood workup as follows: WBC 7.3, hemoglobin 9.5, hematocrit 29.1, and platelet count 328,000. Chemistry shows sodium 132, potassium 4.3, chloride 103, carbon dioxide 25, anion gap of 12, BUN of 10, and creatinine 1.2. BNP 1790. Total protein 7.2, albumin 3.6. EKG showed baseline artifact but normal sinus. Chest x-ray, no acute changes or CHF noted. IMPRESSION: Chest pain, atypical. The patient had recent catheterization done prior to open heart surgery six to eight weeks ago, nonobstructive coronary artery disease prior to that the patient two year ago negative nonobstructive coronary artery disease. The patient multiple admissions with chest pain prior to that, also history of mitral valve repair, history of severe mitral prolapse, history of severe mitral regurgitation, status post open heart surgery eight weeks ago. Coumadin toxicity, INR severely elevated at 17.6, PT 203, and APTT 127.6, mild anemia. RECOMMENDATIONS: We will give p.o. vitamin K, repeat INR/PT in the morning, keep observing the patient. We will closely monitor. Though the BUN is elevated, but give gentle hydration 15 mL an hour and if needed the blood pressure remains low. Continue treatment, aggressive, for COPD. I will give baby aspirin from tomorrow and repeat the blood workup. We are planning to discontinue Coumadin. Anyway, we will see further recommendation as per hospital course. If the patient remains sinus, we can discontinue Coumadin. We will follow with you. Thank you Dr. Guerra, for providing us the opportunity in taking care of this patient, Dariana Mcgregor. Brittany Beebe MD [facility]
--- NOTE | 2017-06-18 06:44 | CP.PCM.CON ---
History of Present Illness - History of Present Illness History of Present Illness: Heme/Onc consult note for Dr Jimenez's service. Reason for consult: supratherapeutic INR Patient is a 62 y/o with PMH of severe mitral regurgitation s/p open heart surgery and repair with MVR biprosthetic, history of paroxysmal afib ( was on coumadin), and non obstructing CAD , COPD whom presented initially due to dizziness and was found to have supratherapeutic INR. Heme/onc is consulted for elevated INR. On admission patient's INR was 17.64. Patient states last week when the visiting nurse came to her house, her INR was 7, Dr Guerra told her to cut down the Coumadin from 5 to 3, however patient states she already has pre- organized medications she takes on a daily bases in a pill container thus she forgot to adjust the dose. Patient states on Saturday she noticed her gum was bleeding when she tried to brush her teeth. She also noticed she was easily bruising and had bruising of the left eye. Patient denies blood in the stool, or dark stool. Denies prior history of bleeding disorder, denies cp or sob. No nausea or vomiting. PMHx: severe mitral regurgitation s/p open heart surgery and repair with MVR biprosthetic, history of paroxysmal afib ( was on Coumadin), and non obstructing CAD , COPD. PSHx: open heart surgery, carpal tunnel, bunion, cholecystectomy. Social: Denies alcohol, tobacco or illicit drug use. Allergy: cinnamon Home meds: Reviewed, please see medical record. Review of Systems - Review of Systems All systems: reviewed and no additional remarkable complaints except Review of Systems: As per HPI. - Hematologic/Lymphatic Hematologic: Easy Bleeding, Easy Bruising. absent: Lymphadenopathy Past Patient History - Infectious Disease Hx of Infectious Diseases: None - Tetanus Immunizations Tetanus Immunization: Unknown - Past Social History Smoking Status: Never Smoked Alcohol: None Drugs: Denies Home Situation {Lives}: With Family - CARDIAC Hx Cardiac Disorders: Yes Hx Congestive Heart Failure: Yes Hx Hypercholesterolemia: Yes Hx Hypertension: Yes Hx Peripheral Edema: Yes Hx Peripheral Vascular Disease: Yes - PULMONARY Hx Respiratory Disorders: Yes Hx Chronic Obstructive Pulmonary Disease (COPD): Yes - NEUROLOGICAL Hx Neurological Disorder: No - HEENT Hx HEENT Problems: No - RENAL Hx Chronic Kidney Disease: No - ENDOCRINE/METABOLIC Hx Endocrine Disorders: No - HEMATOLOGICAL/ONCOLOGICAL Hx Blood Disorders: No - INTEGUMENTARY Hx Dermatological Problems: No - MUSCULOSKELETAL/RHEUMATOLOGICAL Hx Musculoskeletal Disorders: No Hx Falls: No - GASTROINTESTINAL Hx Gastrointestinal Disorders: No - GENITOURINARY/GYNECOLOGICAL Hx Genitourinary Disorders: No - PSYCHIATRIC Hx Psychophysiologic Disorder: Yes Hx Anxiety: Yes Hx Depression: Yes Hx Substance Use: No - SURGICAL HISTORY Hx Surgeries: Yes Hx Cholecystectomy: Yes Hx Open Heart Surgery: Yes - ANESTHESIA Hx Anesthesia: Yes Hx Anesthesia Reactions: No Hx Malignant Hyperthermia: No Meds Allergies/Adverse Reactions: Allergies Allergy/AdvReac Type Severity Reaction Status Date / Time cinnamon Allergy Intermediate Verified 05/16/17 17:07 - Medications Medications: Current Medications Aspirin (Ecotrin) 81 mg PO DAILY GUALBERTO Atorvastatin Calcium (Lipitor) 10 mg PO HS GUALBERTO Last Admin: 06/17/17 21:52 Dose: 10 mg Physical Exam - Constitutional Appears: No Acute Distress, Older Than Stated Age - Head Exam Head Exam: ATRAUMATIC, NORMAL INSPECTION, NORMOCEPHALIC - Eye Exam Eye Exam: EOMI, Normal appearance, PERRL. absent: Scleral icterus Pupil Exam: NORMAL ACCOMODATION - ENT Exam ENT Exam: Mucous Membranes Moist - Neck Exam Neck exam: Positive for: Normal Inspection - Respiratory Exam Respiratory Exam: Clear to Auscultation Bilateral, NORMAL BREATHING PATTERN. absent: Rales, Rhonchi, Wheezes, Respiratory Distress, Stridor - Cardiovascular Exam Cardiovascular Exam: REGULAR RHYTHM, RRR, +S1, +S2 - GI/Abdominal Exam GI & Abdominal Exam: Normal Bowel Sounds, Soft. absent: Distended, Firm, Guarding, Rigid, Tenderness - Extremities Exam Extremities exam: Positive for: normal inspection. Negative for: pedal edema - Back Exam Back exam: NORMAL INSPECTION - Neurological Exam Neurological exam: Alert, Oriented x3, Reflexes Normal - Psychiatric Exam Psychiatric exam: Normal Affect, Normal Mood - Skin Skin Exam: Dry, Intact, Warm Additional comments: small ecchymotic rash on the upper extremities. Results - Vital Signs Recent Vital Signs: Last Vital Signs Temp 97.9 F 06/18/17 05:55 Pulse 95 H 06/18/17 05:56 Resp 72 H 06/18/17 05:55 BP 91/60 L 06/18/17 05:55 Pulse Ox 98 12/12/17 05:55 - Labs Result Diagrams: 06/18/17 06:20 06/18/17 06:20 Labs: Laboratory Results - last 24 hr 06/17/17 16:48 PT 203.9 H INR 17.64 H* APTT 127.6 H* Assessment & Plan - Assessment and Plan (Free Text) Assessment: Patient is a 62 y/o with PMH of severe mitral regurgitation s/p open heart surgery and repair with MVR biprosthetic, history of paroxysmal afib ( was on Coumadin), and non obstructing CAD, COPD whom presented initially presented due to dizziness and was found to have supratherapeutic INR. Supratherapeutic INR likely due to patient taking high dose of Coumadin. Patient was giving IV 10mg of vitamin K by ED, patient was also giving 5 mg po of vitamin by chha. INR is currently 1.76. As per chha, Dr Beebe , patient was on Coumadin due to paroxysmal afib, and patient currently doesn't need Coumadin, thus Coumadin should be discontinued. Patient to only take aspirin 81 mg once a day for non obstructing CAD. Spoke to patient and made her aware of the plan. Patient understands she needs to stop taking Coumadin as recommended by chha, Dr Beebe. Thank you for consulting Dr Jimenez. Patient seen, examined and case discussed with Dr Jimenez. - Date & Time Date: 06/18/17 Time: 07:45
[2017-06-18 06:46] LABS: INR 1.76 (0.93-1.08)
[2017-06-18 06:50] LABS: GRAN # 9.78 (1.4-6.5); GRAN % 93.5 % (50.0-68.0); HEMATOCRIT 28.7 % (36.0-48.0); LYMPH # 0.5 (1.2-3.4); LYMPH % 4.9 % (22.0-35.0); MEAN CELL VOLUME 88.9 fl (80.0-105.0); MEAN CORPUSCULAR HEMOGLOBIN 28.5 pg (25.0-35.0); MEAN CORPUSCULAR HGB CONC 32.1 g/dl (31.0-37.0); MEAN PLATELET VOLUME 9.8 fl (7.0-11.0); MONO # 0.2 (0.1-0.6); MONO % 1.6 % (1.0-6.0); PLATELET COUNT 359 10^3/uL (120.0-450.0); RED CELL DISTRIBUTION WIDTH 15.5 % (11.5-14.5); WHITE BLOOD COUNT 10.5 10^3/ul (4.5-11.0)
[2017-06-18 07:05] LABS: BILIRUBIN,TOTAL 0.7 mg/dL (0.2-1.3); CALCIUM 9.6 mg/dL (8.4-10.5); MAGNESIUM 1.5 mg/dL (1.7-2.2); PHOSPHOROUS 3.7 mg/dL (2.5-4.5); POTASSIUM 4.7 mmol/L (3.6-5.0); TOTAL PROTEIN 7.7 g/dL (5.8-8.3)
[2017-06-18] MEDS ORDERED: guaiFENesin 100 mg/5 ml Syrup UD PO PRN (08:10)
[2017-06-18] MEDS ORDERED: POLYETHYLENE GLYCOL 3350 17 GM/Dose PACKET PO PRN (08:10)
[2017-06-18] MEDS ORDERED: Albuterol-Ipratrop 3 mg / 0.5 (3 ml) UD IH PRN (08:18)
[2017-06-18 08:36] LABS: NEUTROPHIL 92 % (50.0-70.0)
[2017-06-18 08:37] LABS: ANISOCYTOSIS 1+; HYPOCHROMIA 1+
[2017-06-18] MEDS ORDERED: Magnesium Oxide 400 mg Tab UD PO SCH ×2 (10:00→18:00)
[2017-06-18] MEDS ORDERED: Sodium Chloride 0.45% 1,000 ML IV SCH (10:00)
[2017-06-18] MEDS ORDERED: Sodium Chloride 0.9% 1,000 ML IV SCH (10:00)
[2017-06-18] MEDS: Pantoprazole 40 mg EC Tab PO SCH (10:30)
[2017-06-18] MEDS: Albuterol-Ipratrop 3 mg / 0.5 (3 ml) UD IH SCH ×2 (13:45→19:32)
--- NOTE | 2017-06-18 14:19 | PN ---
DATE: REASON FOR THE CONSULTATION AND FOLLOWUP: Chest pain, COPD exacerbation, possible incidental finding of severally elevated INR of 17.6, PT of 203, and APTT of 127.6. SUBJECTIVE: Denies any black color stool, melena or obvious bleeding from anywhere. OBJECTIVE: GENERAL Not in distress. VITAL SIGNS: As follows; temperature afebrile, heart rate 95, and blood pressure 116/76. HEENT: PERRLA, intact. NECK: Supple. No carotid bruits. No thyromegaly. CHEST: Clear to auscultation. LUNGS: S1 and S2, regular. ABDOMEN: Soft. EXTREMITIES: Clubbing and cyanosis negative. LABORATORY DATA: Blood workup as follows; WBC count 10.5, hemoglobin 9.2, hematocrit 28.7, and platelet count 359. Chemistry shows sodium 137, potassium 4.7, chloride 103, carbon dioxide 22, anion gap of 17, BUN 21, and creatinine 1.9. Total protein 7.7, albumin 3.9, albumin and globulin ratio 3.8, TSH 0.48, and INR 1.76. IMPRESSION: Chest pain, atypical; history of cardiac catheterization twice, recently in 04/2017; mid left anterior descending artery disease prior two years ago and nonobstructive coronary artery disease; history of mitral valve bioprosthetic repair in April; history of paroxysmal atrial fibrillation, was on Coumadin postop for three months, the patient discontinued recently, but the patient took an extra couple of dose at home by mixing with other medication, admitted with chest pain, but incidental finding was severely elevated INR of 17.64, but no obvious bleeding noted. H and H remained stable, admitting was 9.2 yesterday, today was 9.2. IV was given by ER and I gave 5 mg p.o., now INR is subtherapeutic. RECOMMENDATIONS: We will discontinue telemetry. We will get a gentle hydration 50 mL an hour. Probably this acute bump in BUN and creatinine secondary to steroid as well as Lasix. Agree to discontinue telemetry. Repeat the blood workup. Possible discharge in a day or two. Thank you Dr. Guerra, for providing us the opportunity in taking care of the patient, Dariana. We will follow with you. Brittany Beebe MD
[2017-06-18 15:47] LABS: PH,URINE 5.5 (4.7-8.0); URINE BILIRUBIN NEGATIVE (NEGATIVE); URINE BLOOD NEGATIVE (NEGATIVE); URINE GLUCOSE (UA) NEGATIVE (NEGATIVE); URINE KETONE TRACE mg/dL (NEGATIVE); URINE LEUKOCYTE ESTERASE NEGATIVE Leu/uL (NEGATIVE); URINE PROTEIN NEGATIVE mg/dL (<30 mg/dL); URINE UROBILINOGEN 0.2 E.U./dL (<1 E.U./dL)
[2017-06-18 15:49] LABS: URINE APPEARANCE CLEAR (CLEAR); URINE COLOR YELLOW (YELLOW)
[2017-06-18] MEDS: MethylPREDNISolone 40 mg Vial IVP SCH (21:39)
--- NOTE | 2017-06-18 21:39 | HP ---
REASON FOR ADMISSION: Chest discomfort and chest pain. HISTORY OF PRESENT ILLNESS: This is a 62-year-old female just recently had cardiac surgery with replacement of mitral valve, on Coumadin for paroxysmal atrial fibrillation, and came to the emergency room with the chest pain that has been on for couple of days. The patient also had noted that she has been monitored for PT and INR; however, her INR was elevated, advised to stop Coumadin, but she forget and she continued Coumadin and her INR is came back to be 8, which is highly elevated. She did mention she spit some blood from spitting and little blood came out, but otherwise no active bleeding and seems stopped. The patient came to the ER for the above complaint and will be admitted for observation. PAST MEDICAL HISTORY: As I mentioned, she has mitral valve replacement surgery, open heart surgery, she did have also chronic osteoarthritis, and chronic gouty arthritis. She does have history of hypertension, COPD, chronic anxiety, and hypercholesterolemia. HOME MEDICATIONS: Coumadin and warfarin she takes 3 mg daily. She takes MiraLax, Protonix 40, magnesium, and cough syrup. She was getting Multaq 400 mg b.i.d., Colace, Benadryl, colchicine 0.6 mg p.o. daily, carvedilol 6.25, Zyrtec 10 mg, vitamin D, Cepacol, Lipitor 10, aspirin 81, bronchodilator nebulizer treatment including DuoNeb, Tylenol With Codeine p.r.n. for pain, and Xanax 0.25 every 8 hours p.r.n. ALLERGIES: NO OTHER ALLERGIES. FAMILY HISTORY: Noncontributory. REVIEW OF SYSTEMS: As in the past, She does complain of throat pain, but she also complain of recent left chest pain. She did have open heart surgery, just midline chest wall discomfort that has been before. She also complaining of anxiety. She is always worry and anxious. PHYSICAL EXAMINATION: GENERAL: On 06/17/2017; the patient is sitting on the bed and is comfortable. No distress. She has no active complaint of chest pain. VITAL SIGNS: Her temperature 97.5, heart rate 75, blood pressure is 92/55, respirations 18, and saturating 100%. HEAD AND NECK: Normal. No JVD. No thyromegaly. CHEST: Clear good air entry. Her chest wall exam; there is midline scar, it seems comfortable, it seems healing well, and no infections and little bit of mild tenderness on palpitation. CARDIAC: First sound and second sound normal. ABDOMEN: Soft and nontender. EXTREMITIES: No edema. NEUROLOGIC: Normal. LABORATORY DATA: White count 7.3, hemoglobin 9.5, hematocrit 29.1, and platelets 328. Chemistry; sodium 136, potassium 4.3, chloride 103, bicarbonate 25, BUN 10, creatinine 1.2, blood sugar 128, calcium 9.2, and magnesium is low 1.6. Liver enzymes are noted for normal AST, ALT and alkaline phosphatase 166. The patient also had ProBNP, which is 1790 and had troponin 0.02. Her PT was 203.9. Her INR is 17.64. Her PTT was 127.6. IMPRESSION AND PLAN: 1. This is a 62-year-old female who came in with chest pain and also has high Coumadin level. Repeat INR is very extremely high. The patient received vitamin K 10 mg in emergency room and we will repeat that Coumadin in the morning. I am going to get a Hematology consult to follow up with Dr. Jimenez, discussed with him already and with vitamin K. 2. Chest pain. Cardiology consult, Dr. Beebe and will monitor, probably we will repeat the troponin, although she has recent cardiac surgery, but that was 2 weeks ago. Current medications; the patient right now getting is Xanax 0.25, Robitussin, Protonix, magnesium oxide 400 mg p.o. daily, Lipitor 10, DuoNeb, aspirin and Dulcolax and we will monitor clinical status. Repeat lab in the morning. Baltazar Guerra MD
--- NOTE | 2017-06-19 00:27 | CON ---
DATE: 06/18/2017 The patient admitted for Dr. Baltazar Guerra. REFERRING MD: Dr. Guerra. REASON FOR CONSULTATION: Evaluation of the patient, known to me from her prior evaluation in 05/2017, who presents with chest pain and an elevated creatinine level. HISTORY OF PRESENT ILLNESS: The patient is a 62-year-old black female with a history of paroxysmal atrial fibrillation, currently in normal sinus rhythm, on chronic anticoagulation, who comes in with a coagulopathy, the patient presented to the hospital with chest pain. The patient is status post mitral valve replacement surgery in 04/2017; history of LVH; history of aortic stenosis; atrial insufficiency; mitral regurgitation; history of anemia in part secondary to iron deficiency back in 05/2017; history of mild nonobstructive coronary artery disease. At the time of her last evaluation, the patient was treated with diuretics and antibiotic therapy for CHF and possible pneumonia. At that point in time, her creatinine was in the mid one range above her baseline of 1 to 1.1. At the time of discharge, her creatinine fell down to 0.9-1.0. When she presented to the hospital, yesterday creatinine was 1.2, this morning it is 1.9, hence we were asked to evaluate the patient for the rise in creatinine. The patient did receive a dose of steroids and diuretics in the emergency room. She is currently on cautious IV fluid hydration. Her chest x-ray showed no CHF. PAST MEDICAL HISTORY: Significant for that of paroxysmal atrial fibrillation, on chronic anticoagulation; history of mitral valve replacement surgery in 04/2017; history of LVH; aortic stenosis; aortic insufficiency; mitral regurgitation; history of anemia with iron deficiency back in 05/2017; history of nonobstructive coronary artery disease. HOME MEDICATIONS: Include that of Coumadin; MiraLax; Protonix; magnesium oxide; Multaq; p.r.n. Benadryl; [place] laxative; Artificial Tears; colchicine p.r.n.; vitamin D; Zyrtec; Coreg; Dulcolax; Lipitor; low-dose aspirin; albuterol; acetylcysteine p.r.n.; Tylenol with Codeine; Xanax p.r.n. ALLERGIES: THE PATIENT IS ALLERGIC TO CINNAMON. SHE HAS NO KNOWN ALLERGIES TO MEDICATION. Medications presently in hospital include that of Dulcolax, DuoNeb, Ecotrin, Lipitor, magnesium oxide, MiraLax, Protonix, Robitussin, normal saline 50 mL an hour started by Cardiology, and Xanax. SOCIAL HISTORY: History of occasional alcohol use, none recently. No history of cigarette smoking. She was never a cigarette smoker. She had exposure of cigarettes as secondhand smoke from her father. FAMILY HISTORY: Father of brain cancer and diabetes. Mother of complications of heart disease. REVIEW OF SYSTEMS: A 10+ systems reviewed with the patient and all negative except what is noted above. GENERAL: The patient states since discharge from the hospital in May, she has been stable. No loss of appetite. No weight loss. ENT: Denies any hearing or visual problems. PULMONARY: Presently, no shortness of breath. History of mild asthma in the past. No history of COPD. No history of emphysema or bronchitis. CARDIAC: History of valvular heart disease, history of atrial fibrillation, history of nonobstructive coronary artery disease, history of chest pain. GI: No nausea, vomiting, diarrhea, constipation, abdominal pain. : No history of chronic kidney disease. No history of UTIs. WEATHERIZATION ADMINISTRATOR: Postmenopausal. ENDOCRINE: No history of diabetes. MUSCULOSKELETAL: No issues. NEURO: No history of CVA, TIA, seizures or syncope. HEMATOLOGY/ONCOLOGY: History of anemia as noted above. PSYCHIATRIC HISTORY: Negative. PHYSICAL EXAMINATION: GENERAL: The patient is currently seen on telemetry. She is sitting in bed, eating her lunch. She appears to be in no acute distress, her chest pain had resolved. She remains on cautious IV fluid hydration. VITAL SIGNS: Blood pressure 91-116 systolic, diastolic 60-76. Pulse rate is 95. Temperature 97.9. Respiratory rate is with oxygen saturation of 98%. HEENT: Exam shows her be normocephalic, atraumatic. Conjunctivae are pale. Sclerae are nonicteric. Pupils are equal and reactive to light and accommodation. Extraocular muscles are intact. Posterior pharynx is normal. NECK: Supple. No neck vein distention. No bruits. No lymphadenopathy. No thyromegaly. CHEST: Clear to auscultation and percussion. No rales. No rhonchi or wheezing. CARDIOVASCULAR: Shows an S1, S2 which are normal. Positive soft systolic murmur at the left lower sternal border. ABDOMEN: Soft. Bowel sounds normal. No rebound. No guarding. No masses. BACK: No CVAT. No spinal tenderness. EXTREMITIES: Show no cyanosis, clubbing or edema. Distal lower extremity pulses are 2+ bilateral. NEURO: Shows her be alert, oriented x3 with no gross focal motor or sensory deficits noted. LABORATORY DATA AND IMAGING STUDIES: Imaging: Admitting chest x-ray shows no acute pulmonary disease. Renal ultrasound done in the spring shows a borderline small left kidney, otherwise negative. Labs: CBC, white blood cell count 10.5, hemoglobin 9.2 with a platelet count of 359,000. Coagulations on admission, PT 203.9 with an INR of 17.64. Today's PT is 19.6 with an INR of 1.76. Chemistries, normal electrolytes. BUN on admission was 10, today is 21; creatinine was 1.2, today is 1.9. Glucose is 191. Magnesium level is low at 1.5. Liver enzymes are normal, slight elevation of alkaline phosphatase of 146. BNP on admission was 1790. Albumin was 3.6, today it is 3.9. LDL cholesterol was 153, total cholesterol was 217. ASSESSMENT: 1. Mild elevation of BUN and creatinine, possibly secondary to diuretic therapy given in the emergency room. The patient has no past history of chronic kidney disease. On previous admission, she had a mild elevation of her creatinine. At the time of discharge, her creatinine was in the 0.9 to 1.0 range. The patient does have a borderline small left kidney. Her urinalysis in the past showed no significant proteinuria or red blood cells. In all likelihood with cautious IV fluid hydration, her BUN and creatinine will drift down to normal. The patient did receive one dose of steroids in the emergency room also. 2. Status post mitral valve replacement approximately 7 weeks ago. This appears to be stable. 3. History of nonobstructive coronary artery disease with mild valvular heart disease and borderline left ventricular hypertrophy. The patient has a history of aortic insufficiency, aortic stenosis, mitral regurgitation. 4. History of paroxysmal atrial fibrillation. She appears to be in sinus rhythm at this point in time. The patient remains on chronic anticoagulation. Apparently, there was some misunderstanding about removing Coumadin from her pill box, hence her PT/INR was significantly elevated at the time of presentation to the hospital. 5. History of anemia. The patient had a mild iron deficiency in the past. I will check her iron levels and we could supplement with IV Venofer accordingly. 6. Mild hypomagnesemia. The patient will start on magnesium oxide supplements. PLAN: 1. Discussed with the patient in detail. I have explained to her that IV fluid hydration being given cautiously will likely correct her slight elevation of BUN and creatinine. 2. I will recheck her iron saturations and ferritin level, IV Venofer as necessary. 3. Try and avoid diuretic therapy as well as steroid therapy and avoid any nephrotoxic agents. 4. No reason right now to repeat any extensive renal evaluation as I believe her BUN and creatinine will likely trend back toward normal. 5. Continue to monitor accurate Is and Os and monitor the patient on telemetry. 6. Daily labs over the next several days. 7. Check phosphorus level, magnesium level on a frequent basis. 8. Case discussed with the patient in detail. Thank you for letting me partake and share in the care of your patient. Ayan Hernandez MD
[2017-06-19] MEDS: Albuterol-Ipratrop 3 mg / 0.5 (3 ml) UD IH SCH ×2 (01:38→07:29)
--- NOTE | 2017-06-19 03:00 | CON ---
PULMONARY CONSULTATION DATE: 06/18/2017 REFERRING PHYSICIAN: Baltazar Guerra MD REASON FOR CONSULTATION: Cough, shortness of breath, and exacerbation of chronic lung disease. HISTORY OF PRESENT ILLNESS: This is a 62-year-old female known to me from previous admission. She has a history of mitral valve disease, requiring prosthetic valve surgery early this year; paroxysmal atrial fibrillation, chronic obstructive lung disease, history of passive smoking in the past, chronic lung disease, comes in with cough and shortness of breath, found to have a iatrogenic coagulopathy, and admitted for further workup. Has cough and sputum production. No nausea. No vomiting, diarrhea, leg pain or leg swelling. PAST MEDICAL HISTORY: As per history of present illness. ALLERGIES: NONE KNOWN. SOCIAL HISTORY: History of secondhand smoking. No alcohol use. FAMILY HISTORY: No significant cardiopulmonary disease reported. MEDICATIONS: She is on Dulcolax p.r.n. basis, DuoNeb q.2 hours p.r.n. and q.6 hours around the clock, Ecotrin 81 mg daily, Lipitor 10 mg daily, magnesium oxide mg twice a day, MiraLax 17 g daily, Protonix 40 mg daily, Robitussin 200 mg p.o. q.6 hours p.r.n. for cough, Protonix 40 mg daily, and Xanax 0.25 mg q.8 hours p.r.n. REVIEW OF SYSTEMS: No headache. No rhinitis. Has cough and shortness of breath. No chest pain. No nausea. No vomiting. No diarrhea. No neck pain. No neck swelling. Admit to have snoring, daytime sleepy, and tired. PHYSICAL EXAMINATION: GENERAL: Lying in the bed, [id number] distress secondary to cough and shortness of breath. VITAL SIGNS: Temperature is 98, heart rate is 112, respiratory rate is 20, blood pressure is 126/68, and pulse ox is 98% on room air. HEENT: Moist mucous membrane. Crowded airway. Mallampati score is IV. NECK: Supple. No JVD. LUNGS: Has a poor airflow with prolonged expiratory phase with wheezing. HEART: S1 and S2. ABDOMEN: Soft and nontender. No organomegaly. EXTREMITIES: There is trace edema. NEUROLOGIC: Awake, alert, and follows simple commands. LABORATORY DATA: Shows hemoglobin 9.2, hematocrit 28.7, WBC 10.5, and platelet is 359. INR is 1.76 on admission. INR yesterday was 17. Sodium 137, potassium 4.7, chloride 103, bicarbonate 22, BUN is 21, creatinine 1.9, glucose 191, calcium 9.6, phosphorous 3.7, and magnesium 1.8. AST 36, ALT 22, alkaline phosphatase 146, proBNP 1450, albumin 3.9, and cholesterol is 217. TSH is 0.48. Chest x-ray done in ER shows no significant lung disease. EKG done in ER shows ectopic atrial rhythm, left axis deviation, and possible inferior infarct. IMPRESSION AND PLAN: Chronic obstructive lung disease, cardiomyopathy, may have sleep apnea syndrome, and atrial fibrillation. We will add IV and inhaled bronchodilator, Zithromax 500 mg daily, and diuretics. We will get procalcitonin in the morning, sleep apnea precaution, and avoid sedation. Thank you and we will follow with you. Brittany Arciniega MD
[2017-06-19 06:40] LABS: INR 1.55 (0.93-1.08)
[2017-06-19 06:46] LABS: IRON 73 ug/dL (45-180)
[2017-06-19 07:08] LABS: BILIRUBIN,TOTAL 0.7 mg/dL (0.2-1.3); CALCIUM 9.2 mg/dL (8.4-10.5); MAGNESIUM 1.4 mg/dL (1.7-2.2); PHOSPHOROUS 3.7 mg/dL (2.5-4.5); POTASSIUM 4.7 mmol/L (3.6-5.0); TOTAL PROTEIN 6.9 g/dL (5.8-8.3)
[2017-06-19] MEDS ORDERED: Magnesium Sulfate 2 GM in Sodium Chloride 0.9% 100 ML IV ONE (07:58)
[2017-06-19 09:25] LABS: GRAN # 9.49 (1.4-6.5); GRAN % 92.8 % (50.0-68.0); HEMATOCRIT 25.7 % (36.0-48.0); LYMPH # 0.6 (1.2-3.4); LYMPH % 5.7 % (22.0-35.0); MEAN CELL VOLUME 89.9 fl (80.0-105.0); MEAN CORPUSCULAR HGB CONC 32.3 g/dl (31.0-37.0); MEAN PLATELET VOLUME 9.8 fl (7.0-11.0); MONO # 0.2 (0.1-0.6); MONO % 1.5 % (1.0-6.0); RED CELL DISTRIBUTION WIDTH 15.5 % (11.5-14.5); WHITE BLOOD COUNT 10.2 10^3/ul (4.5-11.0)
[2017-06-19] MEDS: Pantoprazole 40 mg EC Tab PO SCH (09:46)
[2017-06-19] MEDS: MethylPREDNISolone 40 mg Vial IVP SCH (09:47)
[2017-06-19] MEDS ORDERED: Magnesium Oxide 400 mg Tab UD PO SCH (10:00)
--- NOTE | 2017-06-19 11:22 | IP.NPCORE ---
COPD Progress Note - COPD Progress Note Spirometry Assessment Completed:: No FEV1/FVC<70: No (not documented ) Plan to assess at outpatient follow up: Yes Symptoms:: Increase in Dyspnea Initial CXR:: no active pul disease Date:: 06/17/17 Time:: 12:50 Oxygen Saturation/Pulse Oximetry:: 100 ABG Not Indicated (Symptoms Improved): No Nebulizers Q2-4 hrs:: Duonebs/Albuterol Therapy Antibiotics Not Indicated: Yes Systemic Steroids w/ methylprednisolone Name/Dose/Frequency:: solumedrol 40 q12 Oxygen Delivery Method: Room Air Smoking cessation counseling all stages copd exacerbation: Yes
[2017-06-19 11:25] VITALS: O2SAT 100
[2017-06-19 11:54] VITALS: BP 126/74; PULSE 104; RESP 20; TEMP 97.8
--- NOTE | 2017-06-19 12:20 | PN ---
DATE: 06/19/2017 REASON FOR CONSULTATION: Followup chest pain, COPD exacerbation, incidental finding severely elevated INR, 17.6, PT 203 and PTT 127.6, not actively bleeding. SUBJECTIVE: Denies any black color stool, melena, any obvious bleeding, hematemesis or hemoptysis. OBJECTIVE: GENERAL: Not in apparent distress. IV fluid was given yesterday. VITAL SIGNS: As follows, temperature afebrile, heart rate 93, blood pressure 142/97. HEENT: PERRLA, intact. NECK: Supple. No carotid bruits or thyromegaly. CHEST: Clear to auscultation. LUNGS: S1 and S2, regular. ABDOMEN: Soft. EXTREMITIES: Clubbing and cyanosis negative. LABORATORY DATA: Blood workup as follows; WBC 10.5, hemoglobin 9.2, hematocrit 28.7 as of yesterday, and platelet count 359. Chemistry; sodium 133, potassium 4.3, chloride 103, carbon dioxide 22, anion gap of 13, BUN 26, and creatinine 1.3. INR 1.55. IMPRESSION: Acute kidney injury, elevated PT, INR by mistake, the patient took couple of extra doses of Coumadin. History of paroxysmal atrial fibrillation, although normal sinus; history of severe mitral regurgitation, severe mitral valve prolapse, status post open heart surgery 8 weeks ago. RECOMMENDATIONS: Discontinue Coumadin as mentioned in the office. The patient is status post bioprosthetic AVR. Continue aspirin. Discontinue IV fluid. Repeat CBC today. If remained stable, possible discharge home. Continue atorvastatin. We will resume back Coreg 6.25 b.i.d. Avoid nephrotoxic medication. Avoid FERNANDEZ and ARB for now. We will follow. Thank you Dr. Guerra, for providing us the opportunity in taking care of the patient, Dariana Mcgregor. Brittany Beebe MD cc: Baltazar Guerra MD
--- NOTE | 2017-06-19 13:29 | PN ---
DATE: 06/18/2017 SUBJECTIVE: The patient is comfortable sitting, in no distress, no nosebleed, no bleeding disorders. Seen by jet handler and by Dr. Jimenez, client application support specialist. The patient got vitamin K which revised her PT/INR within 24 hours. She got more than 10 mg vitamin K. Also, the patient seems stable, comfortable, no distress, moving around, and seems doing well. PHYSICAL EXAMINATION: VITAL SIGNS: As follows; temperature 97, heart rate 98, blood pressure 126/68, respirations 19. HEAD AND NECK: Normal. No JVD, no thyromegaly. CHEST: Clear. Good air entry. CARDIAC: First sound and second sound normal. ABDOMEN: Soft, nontender. EXTREMITIES: No edema. NEUROLOGIC: Shows following. LABORATORY DATA: White count 10.5, hemoglobin 9.2, hematocrit 20.7, platelets are 359. Chemistry shows sodium 137, potassium 4.7, chloride 103, bicarb 22, BUN 21, creatinine 1.9, blood sugar 191. Her magnesium is low. I am going to give her IV magnesium before she leaves. Her AST and ALT are normal except for alkaline phosphatase slightly elevated. The patient had recent sternotomy. Her BNP is 1790, which is less than before. The patient also had cholesterol done. Her LDL 153. Her TSH was normal. I gave a prescription for cholesterol medication and advised to follow, but the patient is noncompliant, either with medication for cholesterol or Coumadin, and her PT/INR came down afterwards; INR 17.64 with vitamin K, it came back to 1.76. IMPRESSION AND PLAN: 1. Coagulopathy secondary to noncompliance with Coumadin. The patient had postoperative valve replacement, that is the main reason for Coumadin Dr. Beebe. Ynes, discussed with Dr. Beebe, not needed. Questionable history of paroxysmal atrial fibrillation, right now she is in regular sinus rhythm and she should be in regular sinus rhythm more often than in paroxysmal atrial fibrillation after replacing her mitral valve. We will continue aspirin 325 mg once a day as per Dr. Beebe, plus proton pump inhibitors to protect her stomach. 2. Chronic obstructive pulmonary disease. Continue inhaled bronchodilator. The patient may need a sleep study as an outpatient. 3. Acute renal failure. The patient is getting IV fluid 70 mL per hour, slowly hydration, and we will repeat basic metabolic panel in the morning to check in her kidney functions. The patient is seen by Dr. Cornjeo as a consult. 4. The patient does have chronic osteoarthritis, chronic anxiety. We are going to get her some Xanax p.r.n. I gave her also some colchicine. Allopurinol, at this time, hold off, once the kidney functions improve and then we will give it p.r.n. Continue current therapy. Currently, she is on Lasix 40 mg p.o. daily, which could be too much for her. We will discuss that with Cardiology. Electrolyte abnormalities, low magnesium; I am going to give her magnesium more p.o. or IV. Baltazar Guerra MD
--- NOTE | 2017-06-19 14:36 | PN ---
DATE: 06/19/2017 SUBJECTIVE: The patient is seen sitting in bed. She is awake, she is alert, she is comfortable. She reports that she has no fever at this time. No chills. No fatigue. No shortness of breath. PHYSICAL EXAMINATION: GENERAL: Elderly lady sitting in bed. VITAL SIGNS: Blood pressure 126/74, heart rate 104, respiratory rate 20, temperature 97.8. HEENT: Normocephalic, atraumatic, positive pallor. NECK: Supple, no JVD. LUNGS: Bilateral equal air entry, bilateral scattered rhonchi, no rales. CARDIAC: S1, S2. Regular rate and rhythm, no murmur, no rub. ABDOMEN: Obese, distended, soft, nontender, bowel sounds present. EXTREMITIES: No lower extremity edema. INTAKE AND OUTPUT: 1320/not charted. LABORATORY DATA: WBC 10, hemoglobin to 8.3, hematocrit 26, platelets 327. Sodium 33, potassium 4.7, chloride 103, CO2 22, BUN 26, creatinine 1.3, glucose 191, calcium 9.2, phosphorus 3.7 magnesium 1.4, saturation iron 32, iron 73, ferritin pending. Urine sodium 22. Urine creatinine 211. CURRENT MEDICATIONS: Coreg 6.25 b.i.d., Daliresp, Dulcolax, DuoNeb, Ecotrin, Lasix 40 p.o. daily, Lipitor, mag oxide, MiraLax, Protonix, Robitussin, Singulair, Solu-Medrol 40 q. 12 h., Xanax, Zithromax, mag oxide discontinued yesterday, the patient received 2 g of magnesium sulfate this morning. ASSESSMENT: 1. Acute kidney injury superimposed on chronic kidney disease stage II, resolving acute kidney injury. 2. Paroxysmal atrial fibrillation. 3. Coagulopathy. 4. Severe anemia. 5. Chronic obstructive pulmonary disease. 6. History of acute kidney injury in the past. 7. Hyponatremia secondary to dehydration. 8. Anemia. PLAN: 1. Continue low-dose Lasix, consider switching to every other day. 2. Agree with replacement of magnesium. 3. Restart Coumadin? 4. Chronic anemia. Check urine immunofixation and serum protein electrophoresis. The patient will require outpatient followup. Stacia Cornejo MD [facility] # [id number]
--- NOTE | 2017-06-19 18:41 | PN ---
PULMONARY PROGRESS NOTE DATE: 06/19/2017 REFERRING PHYSICIAN: Baltazar Guerra MD SUBJECTIVE: She is sitting side of the bed. Night was unremarkable. Feels better. Decreased cough. Decrease short of breath. No nausea. No vomiting, diarrhea, leg pain or leg swelling. OBJECTIVE: GENERAL: In no acute distress. VITAL SIGNS: Temperature is 98, heart rate is 104, respiratory rate is 20, blood pressure is 126/70, and pulse ox is 100% on room air. HEENT: Moist mucous membrane. Crowded airway. NECK: Supple. No JVD. LUNGS: Has a few scattered rhonchi and has much better airflow. HEART: S1 and S2. ABDOMEN: Soft and nontender. No organomegaly. EXTREMITIES: No edema. NEUROLOGIC: Awake and alert. Follow simple commands. MEDICATIONS: She is on Coreg 6.25 mg twice a day, Daliresp 500 mcg daily, Dulcolax p.r.n. basis, DuoNeb q.2 hours p.r.n. and q.6 hours around the clock, Ecotrin 81 mg daily, Lasix 40 mg daily, Lipitor 10 mg daily, magnesium oxide 400 mg twice a day, MiraLax 17 g daily, Protonix 40 mg daily, Robitussin 200 mg q.6 hours p.r.n. Singulair 10 mg daily, Solu-Medrol 40 mg q.12 hours, Xanax 0.25 mg q.8 hours p.r.n., and Zithromax 500 mg daily. LABORATORY DATA: Shows hemoglobin 8.3, hematocrit 25.7, WBC 10.2, and platelet is 327. INR 1.5. Sodium 133, potassium 4.7, chloride 103, bicarbonate 22, BUN 26, creatinine 1.3, glucose 191, calcium 9.2, phosphorus 3.7, magnesium 1.4, iron is 73, AST 25, ALT 23, alkaline phosphatase 122, and procalcitonin 0.05. IMPRESSION AND PLAN: Chronic obstructive lung disease, cardiomyopathy, may have sleep apnea syndrome, atrial fibrillation, and history of valvular disease. Pulmonary point of view, she is doing okay. Could be discharged from tapered dose of steroids, antibiotics, and p.o. and inhaled bronchodilator. We will recommend outpatient full pulmonary function test and also attended sleep study. Does have a loud snoring, daytime sleepy, and tired. Thank you and we will follow with you. Brittany Arciniega MD
[2017-06-20 00:59] LABS: TOTAL PROTEIN, SERUM 6.4 g/dL (6.1-8.1)
[2017-06-20 20:49] LABS: BETA 1 GLOBULIN 0.4 g/dL (0.4-0.6); BETA 2 GLOBULIN 0.4 g/dL (0.2-0.5); GAMMA GLOBULIN 1.3 g/dL (0.8-1.7)
--- NOTE | 2017-06-20 22:34 | DS ---
HISTORY OF PRESENT ILLNESS: The patient came in with chest pain and found to have high PT/INR coagulopathy due to Coumadin noncompliance with INR of 8. The patient got vitamin K, INR normalized. Cardiology recommended to discontinue Coumadin, no need, the patient seems stable. The patient's laboratory found creatinine went up to 1.9. Renal consult seen the patient. IV fluid was given and her creatinine went down to 1.3 with IV hydration. The patient does not have any obvious source of bleeding. She has no GI bleed. She has no rectal bleed. She denied any nausea or vomiting. No hematuria. No coughing blood. Seems hemodynamically stable. Her hemoglobin when she came in was 9.5, that is after surgery and with hydration it came down to 9.2 and then 8.3. The patient is otherwise stable. Her creatinine level shows BUN 26 and creatinine 1.3. Magnesium level 1.4. Magnesium was given. The patient advised to continue magnesium b.i.d. 400 mg, and her iron study was within normal range and iron saturation normal. Her ProBNP came down to 1550. The patient is stable hemodynamically. She feels fine, no complaints, and was discharged home to be followed as an outpatient. PHYSICAL EXAMINATION: VITAL SIGNS: On discharge, temperature 97.8, heart rate 104, blood pressure 126/74, respirations 20, and saturation is normal. HEAD AND NECK: Normal. No JVD. No thyromegaly. CHEST: Clear with good air entry. CARDIAC: First sound and second sound normal. ABDOMEN: Soft, nontender. EXTREMITIES: No edema. NEUROLOGIC: Normal. LABORATORY DATA: As I mentioned, sodium 133, potassium 4.7, chloride 102, bicarbonate 22, BUN 26, and creatinine 1.3. Blood sugar 191 and magnesium 1.4. Her CBC, when she came in hemoglobin 9.5, hematocrit 29.1, white count 7.3, and platelets 328. On discharge, her white count 10.2, hemoglobin 8.3, hematocrit 25.7, and platelets 327. DISCHARGE DIAGNOSES: As I mentioned before. 1. Coagulopathy. 2. Chest pain, noncardiac. 3. Status post mitral valve replacement. 4. Acute renal failure, improved. 5. Chronic obstructive pulmonary disease. 6. Anemia. 7. We will discharge the patient and follow up in the office within a week. PLAN: Continue current medications. The patient will be discharged home on Lasix 20 instead of 40 gives chance for hydration and will follow up as an outpatient. She will continue Coreg, baby aspirin, magnesium 400 b.i.d. advised, MiraLax, Multaq 400 b.i.d. as Cardiology followup will be seeing the patient within in a week, Colace, eyedrops, colchicine, vitamin D, Zyrtec, Dulcolax, Cepacol, Lipitor 10, nebulizer treatment, *------* and Singulair. CBC and chemistry was given to the patient to be done on Saturday and will follow up clinically. Baltazar Guerra MD
== END 2017-06-19 15:34 | disposition home health service (06) | DRG 918 ==
LOC: ED 12:39 → ERH 14:49 → 2RSO 17:54
PROVIDERS: ADMIT Internal Medicine; ATTEND Internal Medicine
DX: T45.511A Poisoning by anticoagulants, accidental (unintentional), initial encounter (principal); N17.9 Acute kidney failure, unspecified; I42.9 Cardiomyopathy, unspecified; E87.1 Hypo-osmolality and hyponatremia; J44.1 Chronic obstructive pulmonary disease with (acute) exacerbation; I13.0 Hypertensive heart and chronic kidney disease with heart failure and stage 1 through stage 4 chronic kidney disease, or unspecified chronic kidney disease; I50.9 Heart failure, unspecified; I48.0 Paroxysmal atrial fibrillation; E83.42 Hypomagnesemia; E86.0 Dehydration; M1A.9XX0 Chronic gout, unspecified, without tophus (tophi); N18.2 Chronic kidney disease, stage 2 (mild); F41.9 Anxiety disorder, unspecified; E78.00 Pure hypercholesterolemia, unspecified; I25.10 Atherosclerotic heart disease of native coronary artery without angina pectoris; G47.30 Sleep apnea, unspecified; M19.90 Unspecified osteoarthritis, unspecified site; I08.0 Rheumatic disorders of both mitral and aortic valves; D50.9 Iron deficiency anemia, unspecified; Z79.01 Long term (current) use of anticoagulants; Z91.14 Patient's other noncompliance with medication regimen; Z79.82 Long term (current) use of aspirin

== ENCOUNTER 2017-07-08 16:33 | Inpatient (IN) | payer MEDICARE, OTHER ==
--- NOTE | 2017-07-08 16:58 | ED PDOC ---
Arrival/HPI - General Chief Complaint: Chest Pain Time Seen by Provider: 07/08/17 16:56 - History of Present Illness Narrative History of Present Illness (Text): 62F c/o chest pain constant all day today. no exac or reliev fx. feels same as chest pain for which she has been seen here in the past. Past Medical History - Infectious Disease Hx of Infectious Diseases: None - Tetanus Immunization Tetanus Immunization: Unknown - Reproductive Menopause: Yes - Past Medical History Past Medical History: No Previous - Cardiac Hx Cardiac Disorders: Yes Hx Pacemaker: No Other/Comment: Mitral Valve Replacement - Pulmonary Hx Respiratory Disorders: Yes Hx Asthma: Yes Hx Chronic Obstructive Pulmonary Disease (COPD): Yes - Neurological Hx Neurological Disorder: Yes Hx Dizziness: Yes Hx Migraine: Yes - HEENT Hx HEENT Disorder: No - Renal Hx Renal Disorder: No - Endocrine/Metabolic Hx Endocrine Disorders: No - Hematological/Oncological Hx Blood Disorders: No - Integumentary Hx Dermatological Disorder: No - Musculoskeletal/Rheumatological Hx Falls: No - Gastrointestinal Hx Gastrointestinal Disorders: No - Genitourinary/Gynecological Hx Genitourinary Disorders: No - Psychiatric Hx Emotional Abuse: No Hx Physical Abuse: No Hx Substance Use: No - Surgical History Other/Comment: Mitral Valve Replacement - Anesthesia Hx Anesthesia: Yes Hx Anesthesia Reactions: No Hx Malignant Hyperthermia: No - Suicidal Assessment Feels Threatened In Home Enviroment: No Family/Social History Family/Social History: Other (nc) Smoking Status: Never Smoked Hx Alcohol Use: Yes (SOCIALLY) Amount per day: 6 Hx Substance Use: No Hx Substance Use Treatment: No Allergies/Home Meds Allergies/Adverse Reactions: Allergies cinnamon Allergy (Intermediate, Verified 05/16/17 17:07) Home Medications: Home Meds Medication Instructions Recorded Confirmed Pantoprazole [Protonix EC Tab] 40 mg PO DAILY 02/23/17 06/19/17 Albuterol HFA [Ventolin HFA 90 1 puff IH BID 03/14/17 06/17/17 mcg/actuation (8 g)] Aspirin [[place] Aspirin] 81 mg PO DAILY 03/14/17 06/19/17 Cetirizine HCl [Zyrtec] 10 mg PO DAILY 03/14/17 06/17/17 Cholecalciferol (Vitamin D3) 50,000 unit PO Q7D 03/14/17 06/17/17 [Vitamin D3] Colchicine [Colcrys] 0.6 mg PO DAILY 03/14/17 06/17/17 ALPRAZolam [Xanax] 0.25 mg PO Q8H PRN 05/09/17 06/17/17 Acetaminophen/Codeine 1 tab PO Q4H PRN 05/09/17 06/17/17 [Tylenol/Codeine 300 MG/30 MG] Albuterol 0.083% [Albuterol 0.083% 3 ml IH Q6 05/09/17 06/17/17 Inhal Valeria (2.5 mg/3 ml) UD] Atorvastatin [Lipitor] 10 mg PO HS 05/09/17 06/17/17 Benzocaine/Menthol [Cepacol Sore 1 lozenge PO QID 05/09/17 06/17/17 Throat Lozenge] Bisacodyl [Dulcolax] 10 mg [place] DAILY PRN 05/09/17 06/17/17 Carvedilol [Coreg] 6.25 mg PO Q12 05/09/17 06/19/17 Dextran 70/Hypromellose/Pf 1 drop BOTHEYES Q4H PRN 05/09/17 06/17/17 [Artificial Tears Drops] DiphenhydrAMINE [Benadryl] 25 mg PO HS PRN 05/09/17 06/17/17 Docusate Sodium [[place]' 200 mg PO HS 05/09/17 06/17/17 Laxative] Dronedarone [Multaq] 400 mg PO BID 05/09/17 06/17/17 Guaifenesin [Expectorant Cough 200 mg PO Q6H PRN 05/09/17 06/17/17 Syrup] Magnesium Oxide [Mgo] 400 mg PO BID 05/09/17 06/19/17 Polyethylene Glycol 3350 [Miralax] 17 gm PO DAILY PRN 05/09/17 06/17/17 Furosemide [Lasix] 20 mg PO DAILY 06/19/17 06/19/17 Methylprednisolone [Medrol Dose 06/19/17 Pack (21 tabs)] Review of Systems - Review of Systems Constitutional: absent: Fevers Respiratory: Cough. absent: SOB Cardiovascular: Chest Pain Gastrointestinal: absent: Abdominal Pain, Nausea, Vomiting Physical Exam Vital Signs Reviewed: Yes Vital Signs Temp Pulse Resp BP Pulse Ox 01/01/18 16:48 97.6 F 106 H 18 142/89 100 Appearance: Positive for: Well-Appearing, Non-Toxic, Comfortable Pain Distress: None Mental Status: Positive for: Alert and Oriented X 3 - Systems Exam Head: Present: Atraumatic Pupils: Present: PERRL Mouth: Present: Moist Mucous Membranes Nose (Internal): No: Epistaxis Neck: Present: Normal Range of Motion Respiratory/Chest: Present: Clear to Auscultation. No: Respiratory Distress, Accessory Muscle Use Cardiovascular: Present: Tachycardic Abdomen: No: Tenderness, Distention Upper Extremity: Present: NORMAL PULSES Lower Extremity: No: Edema, CALF TENDERNESS Neurological: Present: GCS=15, Motor Func Grossly Intact, Normal Sensory Function Skin: Present: Warm, Dry Medical Decision Making ED Course and Treatment: 07/08/17 16:56 Progress Notes: EKG: Ordered, reviewed, and independently interpreted the EKG. Rate : 109 BPM Rhythm : Sinus Tachycardia Interpretation : Left axis deviation, no STEMI. - RAD Interpretation Radiology Orders: 07/08/17 17:34 CHEST PORTABLE [RAD] Stat - Scribe Statement The provider has reviewed the documentation as recorded by the Scribe Jennifer Otero Provider Scribe Attestation: All medical record entries made by the Scribe were at my direction and personally dictated by me. I have reviewed the chart and agree that the record accurately reflects my personal performance of the history, physical exam, medical decision making, and the department course for this patient. I have also personally directed, reviewed, and agree with the discharge instructions and disposition. Disposition/Present on Arrival - Present on Arrival History of DVT/PE: No History of Uncontrolled Diabetes: No Urinary Catheter: No History of Decub. Ulcer: No History Surgical Site Infection Following: None - Disposition Forms: [employer] (Yi)
[2017-07-08 17:55] LABS: BASO # 0.01 K/mm3 (0.0-2.0); BASO % 0.2 % (0.0-3.0); EOS # 0.1 (0.0-0.7); EOS % 1.2 % (1.5-5.0); GRAN # 2.86 (1.4-6.5); GRAN % 68.3 % (50.0-68.0); HEMOGLOBIN 10.1 g/dL (12.0-16.0); LYMPH # 0.9 (1.2-3.4); LYMPH % 20.3 % (22.0-35.0); MEAN CELL VOLUME 85.3 fl (80.0-105.0); MEAN CORPUSCULAR HEMOGLOBIN 29.1 pg (25.0-35.0); MEAN CORPUSCULAR HGB CONC 34.1 g/dl (31.0-37.0); MEAN PLATELET VOLUME 8.6 fl (7.0-11.0); MONO # 0.4 (0.1-0.6); RBC 3.47 10^6/uL (3.5-6.1); RED CELL DISTRIBUTION WIDTH 14.7 % (11.5-14.5); WHITE BLOOD COUNT 4.2 10^3/ul (4.5-11.0)
--- NOTE | 2017-07-08 18:07 | RAD ---
HISTORY: cp COMPARISON: Comparison chest 06/17/2017. FINDINGS: LUNGS: Lungs appear hyperinflated. Central pulmonary vasculature is slightly increased which may be due to semi-erect patient position. Rule out mild chronic compensated pulmonary edema/ CHF. Suspect mild bibasilar atelectasis. . PLEURA: No significant pleural effusion identified, no pneumothorax apparent. CARDIOVASCULAR: Sternotomy wires and CABG clips again noted. Additionally, probable prostatic mitral valve OSSEOUS STRUCTURES: No significant abnormalities. VISUALIZED UPPER ABDOMEN: Normal. OTHER FINDINGS: None. IMPRESSION: Lungs appear hyperinflated. Central pulmonary vasculature is slightly increased which may be due to semi-erect patient position. Rule out mild chronic compensated pulmonary edema/ CHF. Suspect mild bibasilar atelectasis. . Cardiomegaly.
[2017-07-08] MEDS ORDERED: Sodium Chloride 0.9% 500 ML IV STA ×2 (18:13→20:11)
[2017-07-08 18:40] LABS: TROPONIN I < 0.01 ng/mL
[2017-07-08 19:14] LABS: ALB/GLOB RATIO 1.1 (1.1-1.8); ALBUMIN 3.9 g/dL (3.0-4.8); ALT/SGPT 29 U/L (7-56); AST/SGOT 29 U/L (14-36); BLOOD UREA NITROGEN 12 mg/dL (7-21); CALCIUM 9.4 mg/dL (8.4-10.5); GFR AFRICAN-AMERICAN > 60; GFR NON-AFRICAN AMERICAN > 60
[2017-07-08 19:49] LABS: VENOUS BLOOD GAS BASE EXCESS -4.4 mmol/L (0.0-2.0); VENOUS BLOOD GAS PO2 131 mm/Hg (30-55); VENOUS BLOOD PH 7.42 (7.32-7.43)
[2017-07-08 21:13] LABS: FREE T4 1.24 ng/dL (0.78-2.19)
[2017-07-08] MEDS ORDERED: diltiaZEM IVPB 100mg in NS 100 ML IV PRN (22:37)
[2017-07-09 00:36] VITALS: BMI 25.5
--- NOTE | 2017-07-09 00:41 | CP.PCM.PN ---
Subjective - Date & Time of Evaluation Date of Evaluation: 07/08/17 Time of Evaluation: 20:33 - Subjective Subjective: called by nurse pt,heart rat is 175 ,a-fib ,pt is admitted for cp tonight is noted to be in mild sob.chest x-ray shows mild vascular congestion.bp is 170/ 100. hr is 175. Objective - Vital Signs/Intake and Output Vital Signs (last 24 hours): Temp Pulse Resp BP Pulse Ox 98.6 F 136 H 20 144/89 100 07/08/17 19:49 07/08/17 23:17 07/08/17 19:49 07/08/17 23:17 07/08/17 19:49 - Medications Medications: Current Medications Diltiazem HCl 125 mg/ Sodium (Chloride) 125 mls @ 5 mls/hr IV .Q24H GUALBERTO; 5 MG/ HR PRN Reason: Protocol Last Admin: 07/08/17 23:17 Dose: 5 mg/hr, 5 mls/hr Nitroglycerin (Nitrostat Sl Tab) 0.4 mg SL Q5M PRN PRN Reason: chest pain Last Admin: 07/08/17 21:20 Dose: 0.4 mg - Constitutional Appears: Other (pt is in mild sob) - Head Exam Head Exam: NORMOCEPHALIC - Eye Exam Eye Exam: Normal appearance Pupil Exam: PERRL - ENT Exam ENT Exam: Mucous Membranes Moist - Neck Exam Neck Exam: Full ROM - Respiratory Exam Respiratory Exam: Clear to Ausculation Bilateral - Cardiovascular Exam Cardiovascular Exam: Tachycardia - GI/Abdominal Exam GI & Abdominal Exam: Normal Bowel Sounds - Rectal Exam Rectal Exam: Deferred - Extremities Exam Extremities Exam: Full ROM - Neurological Exam Neurological Exam: Awake, Oriented x3 - Psychiatric Exam Psychiatric exam: Anxious - Skin Skin Exam: Normal Color Assessment and Plan - Assessment and Plan (Free Text) Assessment: atrial fib with rapid vent rate . chf. copd . Plan: cardiazem bolous 10 mg and 5 mg drip , lasix 40 mg x1.
[2017-07-09 06:15] LABS: VENOUS BLOOD GAS BASE EXCESS -2.8 mmol/L (0.0-2.0); VENOUS BLOOD GAS PO2 163 mm/Hg (30-55); VENOUS BLOOD PH 7.42 (7.32-7.43)
--- NOTE | 2017-07-09 09:52 | CARD ---
APPROVED REPORT EKG Measurement Heart [id number] <Conclusion> Sinus tachycardia Possible Left atrial enlargement Left axis deviation Septal infarct, age undetermined Abnormal ECG
[2017-07-09 12:38] LABS: BASO # 0.01 K/mm3 (0.0-2.0); BASO % 0.2 % (0.0-3.0); EOS % 0.7 % (1.5-5.0); GRAN # 2.15 (1.4-6.5); GRAN % 52.2 % (50.0-68.0); HEMOGLOBIN 9.2 g/dL (12.0-16.0); LYMPH # 1.1 (1.2-3.4); LYMPH % 27.2 % (22.0-35.0); MEAN CELL VOLUME 86.5 fl (80.0-105.0); MEAN CORPUSCULAR HEMOGLOBIN 29.5 pg (25.0-35.0); MEAN CORPUSCULAR HGB CONC 34.1 g/dl (31.0-37.0); MEAN PLATELET VOLUME 8.9 fl (7.0-11.0); MONO # 0.8 (0.1-0.6); MONO % 19.7 % (1.0-6.0); RBC 3.12 10^6/uL (3.5-6.1); RED CELL DISTRIBUTION WIDTH 14.8 % (11.5-14.5); WHITE BLOOD COUNT 4.1 10^3/ul (4.5-11.0)
[2017-07-09 12:59] LABS: B-TYPE NATRIURETIC PEPTIDE 716 pg/mL (0-450); TROPONIN I 0.02 ng/mL
[2017-07-09 13:18] LABS: ALB/GLOB RATIO 1.1 (1.1-1.8); ALBUMIN 3.6 g/dL (3.0-4.8); ALT/SGPT 29 U/L (7-56); AST/SGOT 28 U/L (14-36); BLOOD UREA NITROGEN 12 mg/dL (7-21); CALCIUM 9.4 mg/dL (8.4-10.5); GFR AFRICAN-AMERICAN > 60; GFR NON-AFRICAN AMERICAN > 60; MAGNESIUM 1.1 mg/dL (1.7-2.2)
--- NOTE | 2017-07-09 14:43 | CON ---
DATE: 07/09/2017 REASON FOR CONSULTATION: Chest pain, palpitation, possible atrial flutter. BRIEF CLINICAL HISTORY: This is a 62-year-old female with past medical history significant for paroxysmal atrial fibrillation, severe mitral regurgitation, mitral valve prolapse. History goes back to 2 years ago, the patient had severe mitral valve prolapse and was referred for open heart surgery, which she kept on deferring. Ultimately, the patient had open heart surgery, mitral valve repair done in 04/2017. Came in yesterday who says she was brooming and suddenly she felt chest pain and fluttering, so she came to the emergency room. Found to be initially read as tachycardia with atrial flutter with 2:1 conduction. The patient denies any chest pain now, on Cardizem drip. PAST MEDICAL HISTORY: Significant for paroxysmal atrial fibrillation, mitral regurgitation, normal coronaries, cardiac catheterization twice before surgery, most recent one was in 04/[address] Delatorre at [facility], found to be 50% LAD on 04/2017 before the open heart surgery. PAST SURGICAL HISTORY: Significant for cholecystectomy, carpal tunnel syndrome, and bunionectomy, removal of the bunion from the foot and most recently in 02/2017, the patient's MVR bioprosthetic was done at [facility]. ALLERGIES: NO KNOWN DRUG ALLERGIES. SOCIAL HISTORY: Denies any smoking. Denies any history of alcohol abuse. CURRENT MEDICATIONS: The patient is at home taking Daliresp, MiraLax, Singulair, magnesium, Lasix, dextran, cetirizine, atorvastatin, aspirin, albuterol. REVIEW OF SYSTEMS: As per HPI. PHYSICAL EXAMINATION: As follows; VITAL SIGNS: Temperature afebrile, heart rate 122, blood pressure 120/74. HEENT: PERRLA. Extraocular muscles intact. NECK: Supple. No carotid bruit or thyromegaly. CHEST: Clear to auscultation. HEART: S1 and S2 regular. ABDOMEN: Soft. EXTREMITIES: Clubbing and cyanosis negative. LABORATORY DATA: Blood workup as follows: WBC 4.2, hemoglobin 10.3, hematocrit 29.6, and platelet count 301. Chemistry shows sodium 127, potassium 4.3, chloride 96, carbon dioxide 18, anion gap of 8, BUN 12, and creatinine 0.9. Troponin is 0.01. EKG, initial sinus tachycardia, later on it shows atrial flutter. IMPRESSION: Atrial fibrillation flutter, status post open heart surgery, history of paroxysmal atrial fibrillation, obesity. RECOMMENDATION: We will start Cardizem 20 bolus IV followed by 10 and start low-dose beta-jasmyn, start anticoagulation. The patient was on anticoagulation recently, but discontinued. The patient is back to normal sinus. Now, the patient back again into atrial fibrillation flutter, so we will continue long-term anticoagulation with low dose of beta-jasmyn, metoprolol and Cardizem. We will follow with you. Once the rate is controlled, we will change to p.o. Cardizem. We will get lipid profile, TSH, hemoglobin A1c. Thank you , for providing us the opportunity in taking care of Dariana Mcgregor. Brittany Beebe MD
[2017-07-10] MEDS ORDERED: Magnesium Sulfate 1 gm in D5W 1 GM/100 ML BAG IVPB ONE (02:26)
[2017-07-10 06:22] LABS: BASO # 0.05 K/mm3 (0.0-2.0); BASO % 1.2 % (0.0-3.0); EOS # 0.2 (0.0-0.7); GRAN # 1.89 (1.4-6.5); HEMOGLOBIN 9.3 g/dL (12.0-16.0); LYMPH # 1.2 (1.2-3.4); LYMPH % 29.9 % (22.0-35.0); MEAN CELL VOLUME 87.3 fl (80.0-105.0); MEAN CORPUSCULAR HEMOGLOBIN 29.4 pg (25.0-35.0); MEAN CORPUSCULAR HGB CONC 33.7 g/dl (31.0-37.0); MEAN PLATELET VOLUME 8.7 fl (7.0-11.0); MONO # 0.7 (0.1-0.6); MONO % 17.9 % (1.0-6.0); RBC 3.16 10^6/uL (3.5-6.1); RED CELL DISTRIBUTION WIDTH 14.8 % (11.5-14.5)
[2017-07-10 06:36] VITALS: O2SAT 99
[2017-07-10 06:49] LABS: ALBUMIN 3.7 g/dL (3.0-4.8); ALT/SGPT 30 U/L (7-56); AST/SGOT 36 U/L (14-36); BLOOD UREA NITROGEN 8 mg/dL (7-21); CALCIUM 9.7 mg/dL (8.4-10.5); GFR AFRICAN-AMERICAN > 60; GFR NON-AFRICAN AMERICAN > 60; HDL CHOLESTEROL 77 mg/dL (29-60); MAGNESIUM 1.7 mg/dL (1.7-2.2)
[2017-07-10 06:57] LABS: LDL CHOLESTEROL 69 mg/dL (0-129)
[2017-07-10] MEDS: Magnesium Oxide 400 mg Tab UD PO SCH ×2 (09:22→17:19)
[2017-07-10] MEDS ORDERED: Potassium Chloride 20 mEq ER Tab PO ONE (10:17)
[2017-07-10 12:16] VITALS: RESP 20; TEMP 97.6
--- NOTE | 2017-07-10 12:27 | PN ---
DATE: 07/10/2017 REASON FOR CONSULTATION AND FOLLOWUP: Chest pain, palpitation, atrial fibrillation and flutter, recurrent. The patient denies chest pain, shortness of breath, or any palpitation. OBJECTIVE: GENERAL: Not in apparent distress. The patient converted to normal sinus, currently on IV Cardizem. VITAL SIGNS: As follows; temperature afebrile, heart rate 90, and blood pressure 125/70. HEENT: PERRLA intact. NECK: Supple. No carotid bruits or thyromegaly. CHEST: Clear to auscultation. HEART: S1 and S2 regular. ABDOMEN: Soft. EXTREMITIES: Clubbing and cyanosis negative. LABORATORY DATA: Blood workup as follows, WBC 14.9, hemoglobin 27.6, and platelet count 291. Chemistry showed sodium 131, potassium 3.4, chloride 99, carbon dioxide 21, anion gap of 14, BUN 8, and creatinine 0.9. IMPRESSION: Atrial fibrillation and flutter, recurrent paroxysmal converted to normal sinus on Cardizem, history of nonobstructive coronary artery disease, status post cardiac cauterization 2 months ago, nonobstructive coronary artery disease prior to mitral valve replacement, status post mitral valve replacement, history of severe mitral valve prolapse, severe mitral regurgitation, no evidence of acute myocardial infarction. RECOMMENDATIONS: Continue beta-jasmyn, change Cardizem to p.o., continue atorvastatin, continue Eliquis 5 mg p.o. b.i.d. possible discharge. No further cardiac workup as planned. We will follow with you. Thank you Dr. Guerra for providing us the opportunity in taking care of the patient Dariana Mcgregor. Brittany Beebe MD
--- NOTE | 2017-07-10 12:48 | HP ---
REASON FOR ADMISSION: Chest pain, palpation. HISTORY OF PRESENT ILLNESS: A 62-year-old female ,she was doing okay. She had recent mitral valve repair within six to eight weeks ago. She came into the hospital because she felt suddenly a chest pain, discomfort, more on the left side and felt palpitations with that; no sweating, no dizziness. The patient had these symptoms for almost an hour. She came to the ER for evaluation. She denied any short of breath, any fever, chills, nausea, vomiting or dyspnea with that. PAST MEDICAL HISTORY: As I mentioned, she had mitral valve repair, biologic valve, cholecystectomy, carpal tunnel syndrome, bunion surgery in her foot, otherwise negative. ALLERGIES: CINNAMON, OTHERWISE NO MEDICATION ALLERGY. HOME MEDICATIONS: She takes Ventolin. She takes vitamin D eye drops, artificial tears, colchicine 0.6 mg p.o. daily, Zyrtec, Coreg 6.25 mg b.i.d, Lipitor 10 mg, aspirin, Daliresp, Singulair, Protonix, mag oxide, Lasix 20 mg daily. REVIEW OF SYSTEMS: She does have arthritis. She has back pain, knee pain, chronic, intermittent. She does have anxiety, otherwise except for recent chest surgery with wound midline surgery pain, negative. PHYSICAL EXAMINATION: VITAL SIGNS: On admission here, temperature 98, heart rate was 125, blood pressure 120/74, respirations 20. HEAD AND NECK: Normal. No JVD. No thyromegaly. CHEST: Clear, good air entry. CARDIAC: First sound and second sound normal. Midline incision is clean. ABDOMEN: Soft and nontender. EXTREMITIES: No edema. NEUROLOGIC: Normal. LABORATORY DATA: Laboratory study was noted for white count 4.1, hemoglobin 9.2, hematocrit 27, and platelets 296. Chemistry noted for sodium 128, potassium 4, chloride 20, bicarb 14, BUN 12, creatinine 0.9. The patient also had a magnesium which was low 1.1. She also had liver function test which is normal except alkaline phosphatase slightly elevated 170. Troponin was negative. TSH was 0.21. DIAGNOSTICS: Electrocardiogram was done, patient does have sinus tachycardia on EKG; however, while patient within the first 24 hours, she developed atrial flutter 2:1 and she was started on Cardizem. Chest x-ray, no active pulmonary disease. There is some central vascular increased marking. IMPRESSION AND PLAN: Chest pain associated with palpitations. We will admit the patient to telemetry, cardiology, Dr. Beebe. The patient will be started on Cardizem, also patient was on Eliquis and we will monitor her atrial fibrillation. Also, we will be adding a baby aspirin, magnesium, Lopressor added 25 mg b.i.d. and we will continue the rest of the medications. We will follow up with cardiology. Repeat cardiac enzyme and follow up clinically. Baltazar Guerra MD
[2017-07-10 17:41] VITALS: BP 135/89; PULSE 105
--- NOTE | 2017-07-12 03:51 | DS ---
HISTORY OF PRESENT ILLNESS: The patient is clinically stable. She has no new complaints, sitting with no distress. PHYSICAL EXAMINATION: VITAL SIGNS: Temperature 97.6, heart rate 79, blood pressure 112/86, respirations 20. HEAD AND NECK: Normal. No JVD. No thyromegaly. CHEST: Clear. CARDIAC: First sound and second sound normal. ABDOMEN: Soft, nontender. EXTREMITIES: No edema. NEUROLOGIC: Normal. LABORATORY DATA: The patient has laboratory study, which shows white count 4, hemoglobin 9.3, hematocrit 27.6, platelets 291. Chemistry shows sodium 131, potassium 3.4, chloride 99, bicarbonate 21, BUN 8, creatinine 0.9, blood sugar is 116. Differential is normal. Magnesium is up 1.7. DISCHARGE DIAGNOSES: 1. Paroxysmal atrial fibrillation, we will continue Cardizem CD 120 once a day, continue metoprolol 25 mg b.i.d., continue Eliquis 5 mg b.i.d. 2. History of mitral valve repair, biologic valve stable, continue current treatment. 3. History of gouty arthritis, continue colchicine. 4. Hypomagnesemia, continue magnesium oxide b.i.d. 5. Hypercholesterolemia, continue Lipitor, continue aspirin 81 mg. As she has had chronic constipation, the patient given Miralax and Protonix daily. 6. Chronic back pain, chronic osteoarthritis, continue Tylenol p.r.n. Physical therapy saw the patient. We will discharge the patient, follow up in the office in a week. Baltazar Guerra MD
== END 2017-07-10 17:54 | disposition home or self-care (01) | DRG 310 ==
LOC: ED 16:33 → ERH 19:19 → 2RSO 21:05 → OBSVTOIN 07-09 17:54
PROVIDERS: ADMIT Internal Medicine; ATTEND Internal Medicine
DX: I48.0 Paroxysmal atrial fibrillation (principal); I48.92 Unspecified atrial flutter; E83.42 Hypomagnesemia; Z95.2 Presence of prosthetic heart valve; E78.00 Pure hypercholesterolemia, unspecified; I25.10 Atherosclerotic heart disease of native coronary artery without angina pectoris; K59.09 Other constipation; G89.29 Other chronic pain; M54.9 Dorsalgia, unspecified; E66.9 Obesity, unspecified; J44.9 Chronic obstructive pulmonary disease, unspecified; M10.9 Gout, unspecified; M19.90 Unspecified osteoarthritis, unspecified site; Z79.82 Long term (current) use of aspirin; Z79.899 Other long term (current) drug therapy

== ENCOUNTER 2017-07-20 10:19 | Emergency (ER) | payer MEDICARE, OTHER ==
[2017-07-20 10:20] VITALS: BMI 25.5
[2017-07-20 10:43] VITALS: BP 105/64
[2017-07-20] MEDS ORDERED: DiphenhydrAMINE 50 mg/ml Inj IVP STA (11:07)
--- NOTE | 2017-07-20 12:27 | ED PDOC ---
Arrival/HPI - General Chief Complaint: Allergic Reaction Time Seen by Provider: 07/20/17 11:01 Historian: Patient - History of Present Illness Narrative History of Present Illness (Text): 07/20/17 11:05 A 62 year old female, whose past medical history includes asthma, COPD, and hypertension, presents to the emergency department complaining of swollen tongue with bleeding to right side. Patient reports not taking FERNANDEZ inhibitors. Patient denies any difficulty speaking, respiratory compromise, any open wounds , or any other complaints at this time. Also, patient denies any respiratory compromise or any history of smoking. Patient takes Eliquis as an anticoagulent. No PMD Past Medical History - Provider Review Nursing Documentation Reviewed: Yes - Infectious Disease Hx of Infectious Diseases: None - Tetanus Immunization Tetanus Immunization: Unknown - Past Medical History Past Medical History: No Previous - Cardiac Hx Cardiac Disorders: Yes Hx Hypertension: Yes Hx Pacemaker: No Other/Comment: Mitral Valve Replacement - Pulmonary Hx Respiratory Disorders: Yes Hx Asthma: Yes Hx Chronic Obstructive Pulmonary Disease (COPD): Yes - Neurological Hx Neurological Disorder: Yes Hx Dizziness: Yes Hx Migraine: Yes - HEENT Hx HEENT Disorder: No - Renal Hx Renal Disorder: No - Endocrine/Metabolic Hx Endocrine Disorders: No - Hematological/Oncological Hx Blood Disorders: No - Integumentary Hx Dermatological Disorder: No - Musculoskeletal/Rheumatological Hx Falls: No - Gastrointestinal Hx Gastrointestinal Disorders: No - Genitourinary/Gynecological Hx Genitourinary Disorders: No - Psychiatric Hx Emotional Abuse: No Hx Physical Abuse: No Hx Substance Use: No - Surgical History Other/Comment: Mitral Valve Replacement - Anesthesia Hx Anesthesia: Yes Hx Anesthesia Reactions: No Hx Malignant Hyperthermia: No - Suicidal Assessment Feels Threatened In Home Enviroment: No Family/Social History - Physician Review Nursing Documentation Reviewed: Yes Family/Social History: No Known Family HX Smoking Status: Never Smoked Hx Alcohol Use: Yes (SOCIALLY) Frequency of alcohol use: Socially Amount per day: 6 Hx Substance Use: No Hx Substance Use Treatment: No Allergies/Home Meds Allergies/Adverse Reactions: Allergies cinnamon Allergy (Intermediate, Verified 07/20/17 10:30) ANAPHYLAXIS Home Medications: Home Meds Medication Instructions Recorded Confirmed Pantoprazole [Protonix EC Tab] 40 mg PO DAILY 02/23/17 07/20/17 Albuterol HFA [Ventolin HFA 90 1 puff IH BID 03/14/17 07/20/17 mcg/actuation (8 g)] Aspirin [[place] Aspirin] 81 mg PO DAILY 03/14/17 07/20/17 Cetirizine HCl [Zyrtec] 10 mg PO DAILY 03/14/17 07/20/17 Cholecalciferol (Vitamin D3) 50,000 unit PO Q7D 03/14/17 07/20/17 [Vitamin D3] Colchicine [Colcrys] 0.6 mg PO DAILY 03/14/17 07/20/17 Atorvastatin [Lipitor] 10 mg PO HS 05/09/17 07/20/17 Bisacodyl [Dulcolax] 10 mg DE DAILY PRN 05/09/17 07/20/17 Dextran 70/Hypromellose/Pf 1 drop BOTHEYES Q4H PRN 05/09/17 07/20/17 [Artificial Tears Drops] DiphenhydrAMINE [Benadryl] 25 mg PO HS PRN 05/09/17 07/20/17 Docusate Sodium [[place]' 200 mg PO HS 05/09/17 07/20/17 Laxative] Magnesium Oxide [Mgo] 400 mg PO BID 05/09/17 07/20/17 Polyethylene Glycol 3350 [Miralax] 17 gm PO DAILY PRN 05/09/17 07/20/17 Furosemide [Lasix] 20 mg PO DAILY 06/19/17 07/20/17 Review of Systems - Review of Systems Constitutional: Normal, Other (swollen tongue) Eyes: Normal ENT: Normal Respiratory: Normal Cardiovascular: Normal Gastrointestinal: Normal Genitourinary Female: Normal Musculoskeletal: Normal Skin: Normal Neurological: Normal Endocrine: Normal Hemo/Lymphatic: Normal Psychiatric: Normal Physical Exam Vital Signs Reviewed: Yes Vital Signs Temp Pulse Resp BP Pulse Ox 07/20/17 10:39 105/64 07/20/17 10:31 98.6 F 120 H 16 98 Temperature: Afebrile Blood Pressure: Normal Pulse: Regular Respiratory Rate: Normal Appearance: Positive for: Well-Appearing Pain Distress: None Mental Status: Positive for: Alert and Oriented X 3 - Systems Exam Mouth: No: Normal Tounge (swollen tongue with no active bleeding to right side; no open wounds; ), Normal Teeth (excessive dental and bridgework with many sharp edges.) Neck: Present: Normal Range of Motion. No: Other (no strider; no palpable edema ; no crepature trachea) Respiratory/Chest: Present: Clear to Auscultation, Good Air Exchange. No: Respiratory Distress, Accessory Muscle Use Cardiovascular: Present: Regular Rate and Rhythm, Normal S1, S2. No: Murmurs Abdomen: Present: Normal Bowel Sounds. No: Tenderness, Distention, Peritoneal Signs Neurological: Present: GCS=15, CN II-XII Intact, Speech Normal Skin: No: Rashes Medical Decision Making ED Course and Treatment: 07/20/17 11:10 Impression: 62 year old female with swollen tongue. Plan: -- Benadryl -- Pepcid -- Medrol -- Reassess and disposition Prior Visits: Notes and results from previous visits were reviewed. Patient was last seen in the emergency department on 07/08/2017 for chest pain. Patient was admitted. Progress Notes: - Medication Orders Current Medication Orders: Discontinued Medications Diphenhydramine HCl (Benadryl) 25 mg IVP STAT STA Stop: 07/20/17 11:08 Last Admin: 07/20/17 11:45 Dose: 25 mg IVP Administration Document 07/20/17 11:45 [email or web address] (Rec: 07/20/17 11:46 [email or web address] [id number]) Charges for Administration # of IVP Administrations 1 Famotidine (Pepcid) 20 mg IVP STAT STA Stop: 07/20/17 11:09 Last Admin: 07/20/17 11:46 Dose: 20 mg IVP Administration Document 07/20/17 11:46 [email or web address] (Rec: 07/20/17 11:46 [email or web address] [id number]) Charges for Administration # of IVP Administrations 1 Methylprednisolone (Solu-Medrol) 125 mg IVP STAT STA Stop: 07/20/17 11:09 Last Admin: 07/20/17 11:46 Dose: 125 mg IVP Administration Document 07/20/17 11:46 [email or web address] (Rec: 07/20/17 11:46 [email or web address] [id number]) Charges for Administration # of IVP Administrations 1 - Scribe Statement The provider has reviewed the documentation as recorded by the Robert Zamudio Provider Scribe Attestation: All medical record entries made by the Scribfermin were at my direction and personally dictated by me. I have reviewed the chart and agree that the record accurately reflects my personal performance of the history, physical exam, medical decision making, and the department course for this patient. I have also personally directed, reviewed, and agree with the discharge instructions and disposition. Disposition/Present on Arrival - Present on Arrival Any Indicators Present on Arrival: No History of DVT/PE: No History of Uncontrolled Diabetes: No Urinary Catheter: No History of Decub. Ulcer: No History Surgical Site Infection Following: None - Disposition Have Diagnosis and Disposition been Completed?: Yes Diagnosis: Angioedema Disposition: HOME/ ROUTINE Disposition Time: 13:30 Condition: IMPROVED Additional Instructions: Benadryl 25mg later today. Return to ER if symptoms recur. [facility] - Follow up with primary Forms: [employer] ([place])
[2017-07-20 13:42] VITALS: PULSE 87; TEMP 98
[2017-07-20 13:48] VITALS: RESP 18; O2SAT 99
== END 2017-07-20 13:48 | disposition home or self-care (01) ==
LOC: ED 10:19
DX: T78.3XXA Angioneurotic edema, initial encounter (principal)
CPT/HCPCS: 96374; 96375; 99283; J1200; J2930

== ENCOUNTER 2017-07-21 10:19 | Emergency (ER) | payer MEDICARE ==
[2017-07-21 10:36] VITALS: RESP 18; BMI 25.3
--- NOTE | 2017-07-21 13:08 | ED PDOC ---
Arrival/HPI - General Chief Complaint: Allergic Reaction Time Seen by Provider: 07/21/17 10:29 Historian: Patient - History of Present Illness Narrative History of Present Illness (Text): 07/21/17 13:00 Dariana Mcgregor is a 62 year old female, whose past medical history includes COPD and hypertension, who presents to the emergency department complaining of an allergic reaction that began a couple days ago. Patient states her lips and tongue are swollen and was seen in the emergency department yesterday for the same reason but discharged home. Patient notes having new medication Eloquis, which she took last night. Patient denies fever, shortness of breath, cough, chest pain, headache, or other complaints. Time/Duration: < week Symptom Onset: Gradual Symptom Course: Unchanged Context: Home Past Medical History - Provider Review Nursing Documentation Reviewed: Yes - Infectious Disease Hx of Infectious Diseases: None - Tetanus Immunization Tetanus Immunization: Unknown - Past Medical History Past Medical History: No Previous - Cardiac Hx Cardiac Disorders: Yes Hx Hypertension: Yes Hx Pacemaker: No Other/Comment: Mitral Valve Replacement - Pulmonary Hx Respiratory Disorders: Yes Hx Asthma: Yes Hx Chronic Obstructive Pulmonary Disease (COPD): Yes - Neurological Hx Neurological Disorder: Yes Hx Dizziness: Yes Hx Migraine: Yes - HEENT Hx HEENT Disorder: No - Renal Hx Renal Disorder: No - Endocrine/Metabolic Hx Endocrine Disorders: No - Hematological/Oncological Hx Blood Disorders: No - Integumentary Hx Dermatological Disorder: No - Musculoskeletal/Rheumatological Hx Falls: No - Gastrointestinal Hx Gastrointestinal Disorders: No - Genitourinary/Gynecological Hx Genitourinary Disorders: No - Psychiatric Hx Emotional Abuse: No Hx Physical Abuse: No Hx Substance Use: No - Surgical History Other/Comment: Mitral Valve Replacement - Anesthesia Hx Anesthesia: Yes Hx Anesthesia Reactions: No Hx Malignant Hyperthermia: No - Suicidal Assessment Feels Threatened In Home Enviroment: No Family/Social History - Physician Review Nursing Documentation Reviewed: Yes Family/Social History: Unknown Family HX Smoking Status: Never Smoked Hx Alcohol Use: Yes (SOCIALLY) Amount per day: 6 Hx Substance Use: No Hx Substance Use Treatment: No Allergies/Home Meds Allergies/Adverse Reactions: Allergies cinnamon Allergy (Intermediate, Verified 07/20/17 10:30) ANAPHYLAXIS Home Medications: Home Meds Medication Instructions Recorded Confirmed Pantoprazole [Protonix EC Tab] 40 mg PO DAILY 02/23/17 07/21/17 Albuterol HFA [Ventolin HFA 90 1 puff IH BID 03/14/17 07/21/17 mcg/actuation (8 g)] Aspirin [[place] Aspirin] 81 mg PO DAILY 03/14/17 07/21/17 Cetirizine HCl [Zyrtec] 10 mg PO DAILY 03/14/17 07/21/17 Cholecalciferol (Vitamin D3) 50,000 unit PO Q7D 03/14/17 07/21/17 [Vitamin D3] Colchicine [Colcrys] 0.6 mg PO DAILY 03/14/17 07/21/17 Atorvastatin [Lipitor] 10 mg PO HS 05/09/17 07/21/17 Bisacodyl [Dulcolax] 10 mg LA DAILY PRN 05/09/17 07/21/17 Dextran 70/Hypromellose/Pf 1 drop BOTHEYES Q4H PRN 05/09/17 07/21/17 [Artificial Tears Drops] DiphenhydrAMINE [Benadryl] 25 mg PO HS PRN 05/09/17 07/21/17 Docusate Sodium [[place]' 200 mg PO HS 05/09/17 07/21/17 Laxative] Magnesium Oxide [Mgo] 400 mg PO BID 05/09/17 07/21/17 Polyethylene Glycol 3350 [Miralax] 17 gm PO DAILY PRN 05/09/17 07/21/17 Furosemide [Lasix] 20 mg PO DAILY 06/19/17 07/21/17 Review of Systems - Physician Review All systems were reviewed & negative as marked: Yes - Review of Systems Constitutional: absent: Fevers Respiratory: absent: SOB Cardiovascular: absent: Chest Pain Skin: Other (swollen lips and tongue ) Physical Exam Vital Signs Reviewed: Yes Vital Signs Temp Pulse Resp BP Pulse Ox 07/21/17 14:12 98 F 98 H 18 153/80 H 98 07/21/17 10:30 98.1 F 115 H 18 133/84 94 L Temperature: Afebrile Blood Pressure: Normal Pulse: Tachycardic Respiratory Rate: Normal Appearance: Positive for: Well-Appearing, Non-Toxic, Comfortable Pain Distress: None Mental Status: Positive for: Alert and Oriented X 3 - Systems Exam Head: Present: Atraumatic, Normocephalic Pupils: Present: PERRL Extroacular Muscles: Present: EOMI Conjunctiva: Present: Normal Mouth: Present: Moist Mucous Membranes. No: Normal Lips (swollen lips) Pharnyx: Present: Normal. No: ERYTHEMA, EXUDATE, TONSILS ENLARGED, Peritonsilar Swelling Nose (External): Present: Atraumatic Respiratory/Chest: Present: Clear to Auscultation, Good Air Exchange. No: Respiratory Distress, Accessory Muscle Use, Wheezes, Rales Cardiovascular: Present: Regular Rate and Rhythm, Normal S1, S2. No: Murmurs Abdomen: Present: Normal Bowel Sounds. No: Tenderness, Distention, Peritoneal Signs, Rebound, Guarding Upper Extremity: Present: Normal Inspection, Normal ROM, NORMAL PULSES, Neurovascularly Intact, Capillary Refill < 2s. No: Cyanosis, Edema, Tenderness , Swelling, Erythema Lower Extremity: No: Edema Neurological: Present: GCS=15, CN II-XII Intact, Speech Normal Skin: Present: Warm, Dry, Normal Color. No: Rashes Psychiatric: Present: Alert, Oriented x 3, Normal Insight, Normal Concentration Medical Decision Making ED Course and Treatment: 07/21/17 13:09 Impression: 62 year old female with swollen lips due to a possible allergic reaction Plan: -- Decadron, Prednisone -- Reassess and disposition Progress Notes: 07/21/17 14:04 Reevaluation: On reevaluation the patient feels better and is in no acute distress. I have discussed the results and plan with the patient, who expresses understanding. The patient's lip swelling has gone down and is stable. - Medication Orders Current Medication Orders: Discontinued Medications Dexamethasone (Decadron Inj) 10 mg IM STAT STA Stop: 07/21/17 11:22 Last Admin: 07/21/17 11:40 Dose: Not Given Non-Admin Reason: Patient Refused Famotidine (Pepcid) 20 mg PO STAT STA Stop: 07/21/17 11:53 Last Admin: 07/21/17 12:05 Dose: 20 mg Prednisone (Prednisone Tab) 60 mg PO STAT ONE Stop: 07/21/17 11:53 Last Admin: 07/21/17 12:05 Dose: 60 mg - Scribe Statement The provider has reviewed the documentation as recorded by the Robert Palacios Provider Scribe Attestation: All medical record entries made by the Scribe were at my direction and personally dictated by me. I have reviewed the chart and agree that the record accurately reflects my personal performance of the history, physical exam, medical decision making, and the department course for this patient. I have also personally directed, reviewed, and agree with the discharge instructions and disposition. Disposition/Present on Arrival - Present on Arrival Any Indicators Present on Arrival: No History of DVT/PE: No History of Uncontrolled Diabetes: No Urinary Catheter: No History of Decub. Ulcer: No History Surgical Site Infection Following: None - Disposition Have Diagnosis and Disposition been Completed?: Yes Diagnosis: Allergic reaction Disposition: HOME/ ROUTINE Disposition Time: 12:15 Condition: IMPROVED Discharge Instructions (ExitCare): General Allergic Reaction (ED) Additional Instructions: Thank you for letting us take care of you today. The emergency medical care you received today was directed at your acute symptoms. If you were prescribed any medication, please fill it and take as directed. It may take several days for your symptoms to resolve. Return to the Emergency Department if your symptoms worsen, do not improve, or if you have any other problems. Please contact your doctor or call one of the physicians/clinics you have been referred to that are listed on the Patient Visit Information form that is included in your discharge packet. Bring any paperwork you were given at discharge with you along with any medications you are taking to your follow up visit. Our treatment cannot replace ongoing medical care by a primary care provider (PCP) outside of the emergency department. Thank you for allowing the [facility] team to be part of your care today. Please call Dr. Beebe about your Eliquis dosing when you leave the hospital. Prescriptions: predniSONE [Prednisone] 40 mg PO DAILY #10 tab Forms: [employer] ([place])
[2017-07-21 14:19] VITALS: BP 153/80; PULSE 98; TEMP 98; O2SAT 98
== END 2017-07-21 14:22 | disposition home or self-care (01) ==
LOC: ED 10:19
DX: T78.49XA Other allergy, initial encounter (principal); X58.XXXA Exposure to other specified factors, initial encounter

== ENCOUNTER 2017-08-09 09:06 | Observation (INO) | payer MEDICARE ==
[2017-08-09 09:07] VITALS: BMI 25.3
[2017-08-09] MEDS ORDERED: DiphenhydrAMINE 50 mg/ml Inj IVP STA (09:24)
[2017-08-09] MEDS ORDERED: Famotidine 20mg/50ml 20 MG/50 ML BAG IVPB STA (09:24)
--- NOTE | 2017-08-09 09:25 | ED PDOC ---
Arrival/HPI - General Chief Complaint: Allergic Reaction Time Seen by Provider: 08/09/17 09:22 Historian: Patient - History of Present Illness Narrative History of Present Illness (Text): 08/09/17 09:25 A 62 year old female, whose past medical history includes asthma, COPD, and hypertension, presents to the emergency department complaining of swollen tongue x 7 hours. Patient admits similar symptoms in the past. Patient denies sob, cp, abdominal pain, dizziness, recent travel, or abnormal gait. After reviewing list of medication, patient is taking Enalapril for HTN. Patient was recommended to stop taking this medication. Time/Duration: Other (see hpi) Context: Home Past Medical History - Provider Review Nursing Documentation Reviewed: Yes - Infectious Disease Hx of Infectious Diseases: None - Tetanus Immunization Tetanus Immunization: Unknown - Reproductive Menopause: Yes - Past Medical History Past Medical History: No Previous - Cardiac Hx Cardiac Disorders: Yes Hx Hypertension: Yes Hx Pacemaker: No Other/Comment: Mitral Valve Replacement - Pulmonary Hx Respiratory Disorders: Yes Hx Asthma: Yes Hx Chronic Obstructive Pulmonary Disease (COPD): Yes - Neurological Hx Neurological Disorder: Yes Hx Dizziness: Yes Hx Migraine: Yes - HEENT Hx HEENT Disorder: No - Renal Hx Renal Disorder: No - Endocrine/Metabolic Hx Endocrine Disorders: No - Hematological/Oncological Hx Blood Disorders: No - Integumentary Hx Dermatological Disorder: No - Musculoskeletal/Rheumatological Hx Falls: No - Gastrointestinal Hx Gastrointestinal Disorders: No - Genitourinary/Gynecological Hx Genitourinary Disorders: No - Psychiatric Hx Substance Use: No - Surgical History Other/Comment: Mitral Valve Replacement - Anesthesia Hx Anesthesia: Yes Hx Anesthesia Reactions: No Hx Malignant Hyperthermia: No - Suicidal Assessment Feels Threatened In Home Enviroment: No Family/Social History - Physician Review Nursing Documentation Reviewed: Yes Family/Social History: Other (noncontributory) Smoking Status: Never Smoked Hx Alcohol Use: Yes (SOCIALLY) Amount per day: 6 Hx Substance Use: No Hx Substance Use Treatment: No Allergies/Home Meds Allergies/Adverse Reactions: Allergies cinnamon Allergy (Intermediate, Verified 07/20/17 10:30) ANAPHYLAXIS Home Medications: Home Meds Medication Instructions Recorded Confirmed Atorvastatin [Lipitor] 20 mg PO HS 05/09/17 08/09/17 Furosemide [Lasix] 20 mg PO DAILY 06/19/17 08/09/17 Apixaban [Eliquis] 5 mg PO DAILY 08/09/17 08/09/17 Enalapril Maleate [Vasotec] 5 mg PO DAILY 08/09/17 08/09/17 Review of Systems - Review of Systems Constitutional: Normal. absent: Fatigue, Weight Change, Fevers Eyes: Normal ENT: Other (tongue swelling) Respiratory: Normal Cardiovascular: Normal Gastrointestinal: Normal Genitourinary Female: Normal Musculoskeletal: Normal Skin: Normal Neurological: Normal Endocrine: Normal Hemo/Lymphatic: Normal Psychiatric: Normal Physical Exam Vital Signs Temp Pulse Resp BP Pulse Ox 08/09/17 13:11 120 H 137/84 08/09/17 12:54 110 H 16 130/80 99 08/09/17 10:50 98.1 F 115 H 16 137/89 99 08/09/17 09:07 97.9 F 108 H 18 127/81 98 Temperature: Afebrile Blood Pressure: Normal Pulse: Regular Respiratory Rate: Normal Appearance: Positive for: Well-Appearing, Non-Toxic, Comfortable Pain Distress: None Mental Status: Positive for: Alert and Oriented X 3 - Systems Exam Head: Present: Atraumatic, Normocephalic Pupils: Present: PERRL Extroacular Muscles: Present: EOMI Conjunctiva: Present: Normal Mouth: Present: Moist Mucous Membranes, Normal Lips, Normal Teeth. No: Drooling , Normal Tounge (swollen tongue) Pharnyx: Present: Normal. No: ERYTHEMA, EXUDATE, TONSILS ENLARGED Neck: Present: Normal Range of Motion. No: Meningeal Signs, MIDLINE TENDERNESS , Lymphadenopathy Respiratory/Chest: Present: Clear to Auscultation, Good Air Exchange. No: Respiratory Distress, Accessory Muscle Use Cardiovascular: Present: Regular Rate and Rhythm, Normal S1, S2. No: Murmurs Abdomen: Present: Normal Bowel Sounds. No: Tenderness, Distention, Peritoneal Signs Back: Present: Normal Inspection Upper Extremity: Present: Normal Inspection, Normal ROM. No: Cyanosis, Edema Lower Extremity: Present: Normal Inspection, Normal ROM. No: Edema Neurological: Present: GCS=15, CN II-XII Intact, Speech Normal, Motor Func Grossly Intact, Normal Sensory Function, Normal Cerebellar Funct, Gait Normal Skin: Present: Warm, Dry, Normal Color. No: Rashes Psychiatric: Present: Alert, Oriented x 3, Normal Insight, Normal Concentration Medical Decision Making ED Course and Treatment: 08/09/17 13:00 Patient stated she did not take her BP medication this morning. I will order Metoprolol 25 mg PO. 08/09/17 13:42 Dr. Guerra came to ED to examined patient. He recommended observation for angioedema caused by FERNANDEZ inhibitor Re-evaluation Time: 13:43 Reassessment Condition: Re-examined, Improving,but remains with symptoms - Lab Interpretations Lab Results: Lab Results 08/09/17 09:40: Grp A Beta Strep Ag Negative - Medication Orders Current Medication Orders: Sodium Chloride (Sodium Chloride 0.9%) 1,000 mls @ 999 mls/hr IV .Q1H1M STA Stop: 08/09/17 14:27 Discontinued Medications Diphenhydramine HCl (Benadryl) 50 mg IVP STAT STA Stop: 08/09/17 09:25 Last Admin: 08/09/17 09:36 Dose: 50 mg IVP Administration Document 08/09/17 09:36 MS (Rec: 08/09/17 09:36 MS [facility] [id number]) Charges for Administration # of IVP Administrations 1 Famotidine (Pepcid 20mg/50ml Premix) 20 mg in 50 mls @ 100 mls/hr IVPB STAT STA Stop: 08/09/17 09:53 Last Admin: 08/09/17 09:35 Dose: 100 mls/hr eMAR Start Stop Document 08/09/17 09:35 MS (Rec: 08/09/17 09:36 MS [facility] [id number]) Intravenous Solution Start Date 08/09/17 Start Time 09:36 End Date 08/09/17 End time 10:06 Total Infusion Time 30 Methylprednisolone (Solu-Medrol) 125 mg IVP STAT STA Stop: 08/09/17 09:24 Last Admin: 08/09/17 09:36 Dose: 125 mg IVP Administration Document 08/09/17 09:36 MS (Rec: 08/09/17 09:36 MS [facility] [id number]) Charges for Administration # of IVP Administrations 1 Metoprolol Tartrate (Lopressor) 25 mg PO STAT STA Stop: 08/09/17 13:00 Last Admin: 08/09/17 13:11 Dose: 25 mg MAR Pulse and Blood Pressure Document 08/09/17 13:11 MS (Rec: 08/09/17 13:12 MS [facility] [id number]) Pulse Pulse Rate (60-90) 120 Blood Pressure Blood Pressure (100/60-150/90) 137/84 Disposition/Present on Arrival - Present on Arrival Any Indicators Present on Arrival: No History of DVT/PE: No History of Uncontrolled Diabetes: No Urinary Catheter: No History of Decub. Ulcer: No History Surgical Site Infection Following: None - Disposition Have Diagnosis and Disposition been Completed?: Yes Diagnosis: Angioedema due to angiotensin converting enzyme inhibitor (FERNANDEZ-I) Disposition: HOSPITALIZED Disposition Time: 13:46 Patient Plan: Admission, Observation Condition: STABLE Referrals: [facility], [Non-Staff] - Follow up with primary Forms: [employer] ([place])
[2017-08-09] MEDS ORDERED: Sodium Chloride 0.9% 1,000 ML IV STA (13:27)
[2017-08-09 15:09] LABS: BASO # 0.01 K/mm3 (0.0-2.0); BASO % 0.1 % (0.0-3.0); GRAN # 7.08 (1.4-6.5); GRAN % 97.4 % (50.0-68.0); HEMOGLOBIN 11.3 g/dL (12.0-16.0); LYMPH # 0.2 (1.2-3.4); LYMPH % 2.2 % (22.0-35.0); MEAN CELL VOLUME 86.2 fl (80.0-105.0); MEAN CORPUSCULAR HEMOGLOBIN 29.5 pg (25.0-35.0); MEAN CORPUSCULAR HGB CONC 34.2 g/dl (31.0-37.0); MEAN PLATELET VOLUME 9.1 fl (7.0-11.0); MONO % 0.3 % (1.0-6.0); PLATELET COUNT 323 10^3/uL (120.0-450.0); RBC 3.83 10^6/uL (3.5-6.1); RED CELL DISTRIBUTION WIDTH 14.3 % (11.5-14.5); WHITE BLOOD COUNT 7.3 10^3/ul (4.5-11.0)
[2017-08-09 15:13] LABS: ALB/GLOB RATIO 1.2 (1.1-1.8); ALBUMIN 4.1 g/dL (3.0-4.8); ALT/SGPT 38 U/L (7-56); AST/SGOT 41 U/L (14-36); BLOOD UREA NITROGEN 11 mg/dL (7-21); CALCIUM 9.9 mg/dL (8.4-10.5); GFR AFRICAN-AMERICAN > 60; GFR NON-AFRICAN AMERICAN > 60
[2017-08-09 16:34] VITALS: RESP 20
[2017-08-09 16:38] LABS: BAND 2 % (0-2); LYMPHOCYTE 1 % (22.0-35.0); MONOCYTE 2 % (1.0-6.0); NEUTROPHIL 95 % (50.0-70.0); PLATELET ESTIMATE NORMAL (NORMAL)
[2017-08-09] MEDS: MethylPREDNISolone 40 mg Vial IVP SCH (21:40)
[2017-08-10] MEDS: Albuterol 0.083% Inhal Sol (2.5 mg/3 mL) UD INH SCH ×2 (02:17→07:36)
[2017-08-10] MEDS: diltiaZEM 120 mg/24 Hours CD Cap PO SCH ×2 (08:14→09:29)
[2017-08-10 08:17] VITALS: BP 152/94; PULSE 152
[2017-08-10] MEDS: MethylPREDNISolone 40 mg Vial IVP SCH (09:30)
[2017-08-10 10:44] VITALS: TEMP 98.3; O2SAT 97
--- NOTE | 2017-08-10 23:01 | CON ---
DATE:08/10/2017 CONSULTING SERVICE: Cardiology. CONSULTING PHYSICIAN: Brittany Beebe MD REASON FOR CONSULTATION AND FOLLOWUP: Cardiac evaluation, AFib with rapid ventricular rate, ALLERGIC REACTION TO FERNANDEZ, history of status post MVR. BRIEF CLINICAL HISTORY: This is a 62-year-old female with past medical history significant to COPD, asthma, hypertension, history of mitral valve repair because of severe mitral regurgitation, mitral valve prolapse who came in with tongue swelling after taking enalapril. Denies any chest pain. 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 Patient denies any chest pain, shortness of breath, any palpitation. PAST MEDICAL HISTORY: Significant for paroxysmal atrial fibrillation, mitral valve prolapse, severe mitral regurgitation and mitral valve bioprosthetic MVR dated 04/2017. Previous cardiac workup as follows, patient had a cardiac catheterization done at [facility] before open heart surgery because patient is complaining of chest pain prior. Cardiac catheterization shows 50% LAD but it was a year ago so patient had it just before valve surgery in 04/[address] done at [facility] by [address]. Delatorre, found to be mild LAD. No significant flow-limiting disease. Patient had surgery done by Dr. Bui with MV repair, bioprosthetic. PAST SURGICAL HISTORY: Significant for cholecystectomy, carpal tunnel syndrome, bunionectomy, removal of bunion from the foot and most recently the patient had mentioned open heart surgery at [facility] with bioprosthetic MVR. Most recent echo done on 05/10/2017 that shows a normal LV size, ejection fraction 55%, trace aortic regurgitation, aortic sclerosis, mild aortic stenosis, trace mitral regurgitation, mitral annular calcification,[id number] tricuspid regurgitation, RV systolic pressure of 37, trace pericardial effusion, status post bioprosthetic mitral valve replacement, status post open heart surgery. ALLERGIES: ALLERGY TO FERNANDEZ INHIBITORS. CURRENT MEDICATIONS: Patient was on Coumadin before then patient stopped it because of patient being in sinus, Recently the patient was seen in the office and found to be in AFib so Eliquis was started. Current medications, patient is supposed to take Cardizem CD 120 mg daily, Singulair, metoprolol tartarate 25 b.i.d., , Ativan, apixaban. REVIEW OF SYSTEMS: As follows . PHYSICAL EXAMINATION: As follows: VITAL SIGNS: Temperature afebrile, heart rate 98 before, patient's heart rate HEENT: PERRLA intact. NECK: Supple. No carotid bruits or thyromegaly. CHEST: Clear to auscultation. HEART: S1 and S2 regular. ABDOMEN: Soft. EXTREMITIES: Clubbing and cyanosis negative. IMPRESSION: Paroxysmal atrial fibrillation, status post mitral valve repair. ALLERGIC REACTION TO ANGIOTENSIN CONVERTING ENZYME INHIBITORS. RECOMMENDATION: We will resume Cardizem, resume beta-jasmyn, resume Eliquis. We will follow with you. POSSIBLE ALLERGY TO FERNANDEZ INHIBITORS. We will follow with you. Brittany Beebe MD
--- NOTE | 2017-08-12 07:56 | HP ---
DATE: 08/09/2017 REASON FOR ADMISSION: Severe neck swelling and facial swelling overnight. HISTORY OF PRESENT ILLNESS: This is a 62-year-old female who came into the hospital because of the swelling in her neck. She could not swallow. She has also face swelling. She has history of mitral valve, biologic valve placement with open heart surgery. She has been on FERNANDEZ inhibitors, came in with the neck swelling, diffuse and difficulty swallowing. In the emergency room, the patient was given IV steroids, IV Zantac. She was given Claritin and Benadryl with some improvement and she was admitted for observations overnight. She has no other complaints. The patient does have a history of COPD. She is using nebulizers treatment. She does also have a history of paroxysmal atrial fibrillation. Seems noncompliant with her medications. PAST MEDICAL HISTORY: As above, the patient has a biological, mitral valve replacement; has paroxysmal atrial fibrillation; hypertension; COPD; chronic osteoarthritis, chronic back pain, hypercholesterolemia, chronic atrial fibrillation, and history of one time congestive heart failure. ALLERGIES: CINNAMON; OTHERWISE, NO MEDICATION ALLERGY EXCEPT CURRENTLY NOW FERNANDEZ INHIBITORS ON THIS ADMISSION, ENALAPRIL. SOCIAL HISTORY: She does not smoke, does not drink. FAMILY HISTORY: Noncontributory. MEDICATIONS: She takes at home Lipitor 20 mg at bedtime; Eliquis 5 mg p.o. b.i.d., never started yet; Cardizem 120 mg once a day; Singulair 10 mg; Lopressor 25 mg b.i.d.; Lasix 20 mg p.o. daily; baby aspirin and DuoNeb nebulizer treatment. REVIEW OF SYSTEMS: As in the present illness, otherwise negative. PHYSICAL EXAMINATION VITAL SIGNS: Temperature 98, heart rate is 98, blood pressure 160/102. On repeat exam, her blood pressure was . HEAD AND NECK: Normal. No JVD. No thyromegaly. She does have diffuse neck swelling. Her lips and her tongue are mildly swollen. CHEST: Clear. Good air entry. CARDIAC: First sound and second sound normal. ABDOMEN: Soft, nontender, obese. EXTREMITIES: No edema. NEUROLOGIC: Normal. LABORATORY DATA: White count 7.3, hemoglobin 11.3, hematocrit 33, platelets 323,000. Chemistry: Sodium 127, potassium 4.8, chloride 100, bicarbonate 17, BUN 11, creatinine 0.9, blood sugar 151, alkaline phosphatase 158, AST 41, ALT 38. Total protein 7.6, albumin 4.1, globulin 3.5, albumin-globulin ratio 1.2. The patient also had serology for beta-streptococcus, which is negative. IMPRESSION AND PLAN: This is a 62-year-old female who came in with what angioneurotic edema probably secondary to enalapril. We will discontinue enalapril. We will give her Solu-Medrol IV, Claritin, Benadryl IV, Pepcid 20 mg b.i.d. and we will follow up here clinically. Also, we will resume Eliquis; we will resume Cardizem, and all other medications. We will follow up clinically. We will also consider Cardiology consult for followup here. Baltazar Guerra MD
--- NOTE | 2017-08-12 19:43 | DS ---
HISTORY OF PRESENT ILLNESS: Patient admitted with acute angioneurotic edema due to FERNANDEZ inhibitors, did well, seen by Cardiology. I discussed with him, okay to discharge. She does have history of paroxysmal atrial fibrillation. We will continue giving beta-jasmyn and Cardizem plus Eliquis 5 mg b.i.d. Patient has no chest pain, no shortness of breath. She wants to go home, will be discharged home. PHYSICAL EXAMINATION: VITAL SIGNS: Stable. Temperature 98, heart rate 110, blood pressure 152/94, respirations 20, saturation 97%. HEAD AND NECK: Normal. No JVD. No thyromegaly. CHEST: Clear. Good air entry. CARDIAC: First and second sounds are normal. ABDOMEN: Soft, nontender. EXTREMITIES: No edema. NEUROLOGIC: Normal. DISCHARGE DIAGNOSES: 1. Acute angioneurotic edema secondary to FERNANDEZ inhibitors most likely. 2. Paroxysmal atrial fibrillation. 3. Hypertension. 4. Chronic obstructive pulmonary disease. 5. Chronic osteoarthritis. 6. Chronic back pain. PLAN: Discharge home. Continue the . Continue Zantac 150 b.i.d. Continue Benadryl 50 mg q. 6 hours first 48 hours and will go slowly. Follow up in the office within a week. Continue Eliquis 5 mg b.i.d., Cardizem and metoprolol 25 b.i.d. Continue all other medications at home and will follow up clinically. All medicines have been reconciled on discharge. Baltazar Guerra MD
== END 2017-08-10 12:15 | disposition home or self-care (01) ==
LOC: ED 09:06 → ERH 13:41 → 3RNO 16:03
PROVIDERS: ADMIT Internal Medicine; ATTEND Internal Medicine
DX: T78.3XXA Angioneurotic edema, initial encounter (principal); T46.4X5A Adverse effect of angiotensin-converting-enzyme inhibitors, initial encounter; E78.00 Pure hypercholesterolemia, unspecified; G89.29 Other chronic pain; I11.0 Hypertensive heart disease with heart failure; I50.9 Heart failure, unspecified; I48.2 Chronic atrial fibrillation; I48.0 Paroxysmal atrial fibrillation; J44.9 Chronic obstructive pulmonary disease, unspecified; I34.0 Nonrheumatic mitral (valve) insufficiency; I34.1 Nonrheumatic mitral (valve) prolapse; M19.90 Unspecified osteoarthritis, unspecified site; R13.10 Dysphagia, unspecified; Z79.01 Long term (current) use of anticoagulants; Z79.899 Other long term (current) drug therapy; Z91.14 Patient's other noncompliance with medication regimen; Z95.3 Presence of xenogenic heart valve; Z87.892 Personal history of anaphylaxis; Z91.018 Allergy to other foods; R40.2412 Glasgow coma scale score 13-15, at arrival to emergency department; M54.9 Dorsalgia, unspecified; I08.3 Combined rheumatic disorders of mitral, aortic and tricuspid valves
CPT/HCPCS: 80053; 85025; 87070; 87430; 94640; 96361; 96365; 96375; 96376; 99284; G0378; J1200; J2920; J2930; J7040

== ENCOUNTER 2017-08-20 05:16 | Emergency (ER) | payer MEDICARE ==
[2017-08-20 05:17] VITALS: BMI 25.3
[2017-08-20 05:50] VITALS: RESP 18
--- NOTE | 2017-08-20 06:14 | ED PDOC ---
Arrival/HPI - General Chief Complaint: Medical Clearance Time Seen by Provider: 08/20/17 05:57 Historian: Patient - History of Present Illness Narrative History of Present Illness (Text): 08/20/17 06:10 62 year old female, whose past medical history includes hypertension, hyperlipidemia, cardiac valve replacement, and COPD, presents to the emergency department complaining of waking from her sleep with a mouth full of blood and on her sheets. Patient states she had a pervious history of bleeding secondary to Coumadin followed by her cardiac surgery. Patient states she was switched to Eliquis. She is now concerned of the reoccurred bleeding. Patient also noted intermittent chest pain, but denies any history of any bleeding elsewhere, fever , chills, shortness of breath, nausea, vomiting, diarrhea, urinary symptoms, back pain, neck pain, headache, dizziness, or any other complaints. Time/Duration: 1/2 hour Symptom Onset: Sudden Activities at Onset: Light Context: Home, Other (sleeping) Past Medical History - Provider Review Nursing Documentation Reviewed: Yes - Infectious Disease Hx of Infectious Diseases: None - Tetanus Immunization Tetanus Immunization: Unknown - Reproductive Menopause: Yes - Past Medical History Past Medical History: No Previous - Cardiac Hx Cardiac Disorders: Yes Hx Hypertension: Yes Hx Pacemaker: No Other/Comment: Mitral Valve Replacement 04/23 - Pulmonary Hx Respiratory Disorders: Yes Hx Asthma: Yes Hx Chronic Obstructive Pulmonary Disease (COPD): Yes - Neurological Hx Neurological Disorder: Yes Hx Dizziness: Yes Hx Migraine: Yes - HEENT Hx HEENT Disorder: No - Renal Hx Renal Disorder: No - Endocrine/Metabolic Hx Endocrine Disorders: No - Hematological/Oncological Hx Blood Disorders: No - Integumentary Hx Dermatological Disorder: No - Musculoskeletal/Rheumatological Hx Musculoskeletal Disorders: No Hx Falls: No - Gastrointestinal Hx Gastrointestinal Disorders: No - Genitourinary/Gynecological Hx Genitourinary Disorders: No - Psychiatric Hx Psychophysiologic Disorder: No Hx Emotional Abuse: No Hx Physical Abuse: No Hx Substance Use: No - Surgical History Other/Comment: Mitral Valve Replacement - Anesthesia Hx Anesthesia: Yes Hx Anesthesia Reactions: No Hx Malignant Hyperthermia: No - Suicidal Assessment Feels Threatened In Home Enviroment: No Family/Social History - Physician Review Nursing Documentation Reviewed: Yes Family/Social History: No Known Family HX Smoking Status: Never Smoked Hx Alcohol Use: Yes (SOCIALLY) Amount per day: 6 Hx Substance Use: No Hx Substance Use Treatment: No Allergies/Home Meds Allergies/Adverse Reactions: Allergies cinnamon Allergy (Intermediate, Verified 08/20/17 05:55) ANAPHYLAXIS Home Medications: Home Meds Medication Instructions Recorded Confirmed Apixaban [Eliquis] 5 mg PO DAILY 08/09/17 08/20/17 Ranitidine HCl [Acid Glass Sander 150] 150 mg PO BID 08/20/17 08/20/17 Simvastatin [Zocor] 20 mg PO HS 08/20/17 08/20/17 diltiaZEM [Cardizem] 120 mg PO DAILY 08/20/17 08/20/17 Review of Systems - Physician Review All systems were reviewed & negative as marked: Yes - Review of Systems Constitutional: absent: Fevers, Other (Chills) ENT: Other (Mouth full of blood) Respiratory: absent: SOB Cardiovascular: Chest Pain Gastrointestinal: absent: Diarrhea, Nausea, Vomiting Genitourinary Female: absent: Dysuria, Frequency, Hematuria Musculoskeletal: absent: Back Pain, Neck Pain Neurological: absent: Headache, Dizziness Physical Exam Vital Signs Reviewed: Yes Vital Signs Temp Pulse Resp BP Pulse Ox 08/20/17 05:44 98.0 F 107 H 18 115/72 97 Temperature: Afebrile Blood Pressure: Normal Pulse: Tachycardic Respiratory Rate: Normal Appearance: Positive for: Well-Appearing, Non-Toxic, Comfortable Pain Distress: None Mental Status: Positive for: Alert and Oriented X 3 - Systems Exam Head: Present: Atraumatic, Normocephalic Pupils: Present: PERRL Extroacular Muscles: Present: EOMI Conjunctiva: Present: Normal Ears: Present: Normal Mouth: Present: Moist Mucous Membranes Neck: Present: Normal Range of Motion. No: Meningeal Signs Respiratory/Chest: Present: Clear to Auscultation, Good Air Exchange. No: Respiratory Distress, Accessory Muscle Use Cardiovascular: Present: Regular Rate and Rhythm, Normal S1, S2. No: Murmurs Abdomen: Present: Normal Bowel Sounds. No: Tenderness, Distention, Peritoneal Signs Back: Present: Normal Inspection Upper Extremity: Present: Normal Inspection. No: Cyanosis, Edema Lower Extremity: Present: Normal Inspection. No: Edema Neurological: Present: GCS=15, CN II-XII Intact, Speech Normal Skin: Present: Warm, Dry, Normal Color. No: Rashes Psychiatric: Present: Alert, Oriented x 3, Normal Insight, Normal Concentration Medical Decision Making ED Course and Treatment: 08/20/17 06:10 Impression: 62 year old female presents complaining from waking up with a mouth full of flood. Has similar symptoms in the past. Plan: -- Labs -- EKG -- Chest X-ray -- Reassess and disposition Progress Notes: EKG shows Sinus Tachycardia at 104 BPM with LAD. LVH. Septal infarct. Non- specific ST/T changes. Interpreted by me. 08/20/17 06:19 08/20/17 06:23 CXR Impression: As read by me, no acute processes. - Lab Interpretations I have reviewed the lab results: Yes - RAD Interpretation Radiology Orders: 08/20/17 06:08 CHEST PORTABLE [RAD] Stat - EKG Interpretation Interpreted by ED Physician: Yes Type: 12 lead EKG - Transfer of Care Patient signed out to Dr:Jie Alvarez Pending Labs:: Labs/reassess/final disposition - Scribe Statement The provider has reviewed the documentation as recorded by the Robert Amaral Provider Scribe Attestation: All medical record entries made by the Scribe were at my direction and personally dictated by me. I have reviewed the chart and agree that the record accurately reflects my personal performance of the history, physical exam, medical decision making, and the department course for this patient. I have also personally directed, reviewed, and agree with the discharge instructions and disposition. Disposition/Present on Arrival - Present on Arrival Any Indicators Present on Arrival: No History of DVT/PE: No History of Uncontrolled Diabetes: No Urinary Catheter: No History of Decub. Ulcer: No History Surgical Site Infection Following: None - Disposition Have Diagnosis and Disposition been Completed?: No Diagnosis: Chest pain Disposition Time: 07:00 Condition: STABLE Discharge Instructions (ExitCare): Chest Pain (ED) Forms: [employer] (Sami)
--- NOTE | 2017-08-20 07:24 | ED PDOC ---
Physical Exam Vital Signs Reviewed: Yes Vital Signs Temp Pulse Resp BP Pulse Ox 08/20/17 10:34 108 H 18 138/95 H 98 08/20/17 08:00 98.4 F 102 H 18 117/82 99 08/20/17 05:44 98.0 F 107 H 18 115/72 97 Temperature: Afebrile Blood Pressure: Normal Pulse: Tachycardic Respiratory Rate: Normal Appearance: Positive for: Well-Appearing, Non-Toxic, Comfortable Pain Distress: None Mental Status: Positive for: Alert and Oriented X 3 Medical Decision Making ED Course and Treatment: 08/20/17 07:23 Case signed out to me by Dr. Lopes. Pending labs, reassessment and final disposition. 08/20/17 11:34 feels much better; asymptomatic; labs stable. - Lab Interpretations Lab Results: 08/20/17 08:10 08/20/17 08:10 Lab Results 08/20/17 08:10: Blood Type O POSITIVE, Antibody Screen Negative, BBK History Checked Patient has bt 08/20/17 08:10: WBC 7.0, RBC 3.86, Hgb 11.3 L, Hct 33.8 L, MCV 87.6, MCH 29.3, MCHC 33.4, RDW 14.8 H, Plt Count 270, MPV 9.6 08/20/17 08:10: Sodium 133, Potassium 4.2, Chloride 100, Carbon Dioxide 22, Anion Gap 15, BUN 14, Creatinine 0.9, Est GFR ( Amer) > 60, Est GFR (Non- Af Amer) > 60, Random Glucose 150 H, Calcium 9.6, Total Bilirubin 0.3, AST 36, ALT 25, Alkaline Phosphatase 140 H, Lactate Dehydrogenase 664, Total Creatine Kinase 28 L, Troponin I < 0.01 D, Total Protein 6.9, Albumin 3.7, Globulin 3.2 , Albumin/Globulin Ratio 1.2 08/20/17 08:10: PT 13.2 H, INR 1.14 H, APTT 33.4 I have reviewed the lab results: Yes - RAD Interpretation Radiology Orders: 08/20/17 06:08 CHEST PORTABLE [RAD] Stat - Medication Orders Current Medication Orders: Discontinued Medications Diltiazem HCl (Cardizem) 60 mg PO STAT STA Stop: 08/20/17 10:15 Last Admin: 08/20/17 10:41 Dose: 60 mg Metoprolol Tartrate (Lopressor) 25 mg PO STAT STA Stop: 08/20/17 10:15 Last Admin: 08/20/17 10:41 Dose: 25 mg - Scribe Statement The provider has reviewed the documentation as recorded by the Robert Vicente Provider Scribe Attestation: All medical record entries made by the Scribfermin were at my direction and personally dictated by me. I have reviewed the chart and agree that the record accurately reflects my personal performance of the history, physical exam, medical decision making, and the department course for this patient. I have also personally directed, reviewed, and agree with the discharge instructions and disposition. Disposition/Present on Arrival - Present on Arrival Any Indicators Present on Arrival: No History of DVT/PE: No History of Uncontrolled Diabetes: No Urinary Catheter: No History of Decub. Ulcer: No History Surgical Site Infection Following: None - Disposition Have Diagnosis and Disposition been Completed?: Yes Diagnosis: Chest pain, Dizziness Disposition: HOME/ ROUTINE Disposition Time: 11:40 Patient Plan: Discharge Patient Problems: Current Active Problems Problem Status Onset Chest pain Acute Condition: STABLE Discharge Instructions (ExitCare): Chest Pain (ED) Additional Instructions: see your doctor this week. Forms: [employer] (Icelandic)
[2017-08-20 08:39] LABS: HEMOGLOBIN 11.3 g/dL (12.0-16.0); MEAN CELL VOLUME 87.6 fl (80.0-105.0); MEAN CORPUSCULAR HEMOGLOBIN 29.3 pg (25.0-35.0); MEAN CORPUSCULAR HGB CONC 33.4 g/dl (31.0-37.0); MEAN PLATELET VOLUME 9.6 fl (7.0-11.0); RBC 3.86 10^6/uL (3.5-6.1); RED CELL DISTRIBUTION WIDTH 14.8 % (11.5-14.5)
--- NOTE | 2017-08-20 08:42 | RAD ---
HISTORY: chest pain COMPARISON: 07/08/2017 FINDINGS: LUNGS: No active pulmonary disease. PLEURA: No significant pleural effusion identified, no pneumothorax apparent. CARDIOVASCULAR: Status post CABG. OSSEOUS STRUCTURES: No significant abnormalities. VISUALIZED UPPER ABDOMEN: Normal. OTHER FINDINGS: None. IMPRESSION: No active disease.
[2017-08-20 08:50] LABS: ALB/GLOB RATIO 1.2 (1.1-1.8); ALBUMIN 3.7 g/dL (3.0-4.8); ALT/SGPT 25 U/L (7-56); AST/SGOT 36 U/L (14-36); BLOOD UREA NITROGEN 14 mg/dL (7-21); CALCIUM 9.6 mg/dL (8.4-10.5); GFR AFRICAN-AMERICAN > 60; GFR NON-AFRICAN AMERICAN > 60
[2017-08-20 08:57] LABS: INR 1.14 (0.93-1.08); PARTIAL THROMBOPLASTIN TIME 33.4 Seconds (25.1-36.5); PROTHROMBIN TIME 13.2 SECONDS (9.4-12.5); TROPONIN I < 0.01 ng/mL
--- NOTE | 2017-08-20 10:30 | CARD ---
APPROVED REPORT EKG Measurement Heart [id number] SD 134P [id number] <Conclusion> Sinus tachycardia Left axis deviation Moderate voltage criteria for LVH, may be normal variant No change
[2017-08-20 12:11] VITALS: BP 138/73; PULSE 88; TEMP 98; O2SAT 99
== END 2017-08-20 12:29 | disposition home or self-care (01) ==
LOC: ED 05:16
DX: R07.9 Chest pain, unspecified (principal); I10 Essential (primary) hypertension; E78.5 Hyperlipidemia, unspecified; Z95.2 Presence of prosthetic heart valve; Z79.01 Long term (current) use of anticoagulants

== ENCOUNTER 2017-10-29 12:56 | Inpatient (IN) | payer MEDICARE, OTHER ==
[2017-10-29 13:17] VITALS: BMI 25.0
--- NOTE | 2017-10-29 13:35 | ED PDOC ---
Arrival/HPI - General Chief Complaint: Chest Pain Time Seen by Provider: 10/29/17 13:12 Historian: Patient - History of Present Illness Narrative History of Present Illness (Text): 10/29/17 13:32 Patient is a 62 year old female with a past medical history of hypertension, hyperlipidemia, atrial fibrillation, CHF, COPD, and valve replacement, who presents to the emergency department complaining of left sided chest pain since last night. Patient reports experiencing sharp/tight left sided chest pain throughout the night that would occasionally radiate to the right. She notes associated shortness of breath, nausea, and two episodes of non-bilious non- bloody vomiting. Patient mentions her symptoms have slightly improved this morning. Patient denies any lower extremity edema, fevers, chills, headache, dizziness, cough, abdominal pain, diarrhea, back pain, neck pain, or any other complaints. Patient reports not taking her medication for today. PMD: Dr. Guerra Human Resources Assistant Manager: Dr. Beebe Time/Duration: Other (last night) Symptom Course: Improving (this morning) Quality: Tightness, Other (sharp) Context: Home Past Medical History - Provider Review Nursing Documentation Reviewed: Yes - Infectious Disease Hx of Infectious Diseases: None - Tetanus Immunization Tetanus Immunization: Unknown - Past Medical History Past Medical History: No Previous - Cardiac Hx Cardiac Disorders: Yes Hx Hypertension: Yes Hx Pacemaker: No Other/Comment: Mitral Valve Replacement 04/23 - Pulmonary Hx Respiratory Disorders: Yes Hx Asthma: Yes Hx Chronic Obstructive Pulmonary Disease (COPD): Yes - Neurological Hx Neurological Disorder: Yes Hx Dizziness: Yes Hx Migraine: Yes - HEENT Hx HEENT Disorder: No - Renal Hx Renal Disorder: No - Endocrine/Metabolic Hx Endocrine Disorders: No - Hematological/Oncological Hx Blood Disorders: No - Integumentary Hx Dermatological Disorder: No - Musculoskeletal/Rheumatological Hx Musculoskeletal Disorders: No Hx Falls: No - Gastrointestinal Hx Gastrointestinal Disorders: No - Genitourinary/Gynecological Hx Genitourinary Disorders: No - Psychiatric Hx Psychophysiologic Disorder: No Hx Emotional Abuse: No Hx Physical Abuse: No Hx Substance Use: No - Surgical History Other/Comment: Mitral Valve Replacement - Anesthesia Hx Anesthesia: Yes Hx Anesthesia Reactions: No Hx Malignant Hyperthermia: No - Suicidal Assessment Feels Threatened In Home Enviroment: No Family/Social History - Physician Review Nursing Documentation Reviewed: Yes Family/Social History: No Known Family HX Smoking Status: Never Smoked Hx Alcohol Use: Yes (SOCIALLY) Amount per day: 6 Hx Substance Use: No Hx Substance Use Treatment: No Allergies/Home Meds Allergies/Adverse Reactions: Allergies cinnamon Allergy (Intermediate, Verified 10/29/17 13:23) ANAPHYLAXIS Home Medications: Home Meds Medication Instructions Recorded Confirmed Apixaban [Eliquis] 5 mg PO DAILY 08/09/17 08/20/17 Ranitidine HCl [Acid Disease And Insect Control Boss 150] 150 mg PO BID 08/20/17 08/20/17 Simvastatin [Zocor] 20 mg PO HS 08/20/17 08/20/17 diltiaZEM [Cardizem] 120 mg PO DAILY 08/20/17 08/20/17 Review of Systems - Physician Review All systems were reviewed & negative as marked: Yes - Review of Systems Constitutional: absent: Fevers, Night Sweats Respiratory: SOB. absent: Cough Cardiovascular: Chest Pain. absent: Edema Gastrointestinal: Nausea, Vomiting. absent: Abdominal Pain, Diarrhea Musculoskeletal: absent: Back Pain, Neck Pain Neurological: absent: Headache, Dizziness Physical Exam Vital Signs Reviewed: Yes Vital Signs Temp Pulse Resp BP Pulse Ox 10/29/17 15:33 98 F 98 H 19 127/78 100 10/29/17 14:29 139/74 10/29/17 13:17 98.2 F 88 18 159/73 H 100 Temperature: Afebrile Blood Pressure: Hypertensive Pulse: Regular Respiratory Rate: Normal Appearance: Positive for: Well-Appearing Pain Distress: None Mental Status: Positive for: Alert and Oriented X 3 - Systems Exam Head: Present: Atraumatic, Normocephalic Pupils: Present: PERRL Extroacular Muscles: Present: EOMI Conjunctiva: Present: Normal Mouth: Present: Moist Mucous Membranes Neck: Present: Normal Range of Motion. No: JVD Respiratory/Chest: Present: Good Air Exchange, Wheezes (Trace wheezing), Rales ( crackles in right lung field). No: Clear to Auscultation, Respiratory Distress , Accessory Muscle Use Cardiovascular: Present: Regular Rate and Rhythm, Normal S1, S2. No: Murmurs Abdomen: Present: Normal Bowel Sounds. No: Tenderness, Distention, Peritoneal Signs Back: Present: Normal Inspection Upper Extremity: Present: Normal Inspection, NORMAL PULSES. No: Cyanosis, Edema Lower Extremity: Present: Normal Inspection, NORMAL PULSES. No: Edema, CALF TENDERNESS Neurological: Present: GCS=15, CN II-XII Intact, Speech Normal Skin: Present: Warm, Dry, Normal Color. No: Rashes Psychiatric: Present: Alert, Oriented x 3, Normal Insight, Normal Concentration Medical Decision Making ED Course and Treatment: 10/29/17 13:32 Impression: Patient is a 62 year old female with chest pain. Patient notes shortness of breath. Differential Diagnosis included but are not limited to: CHF vs. COPD exacerbation Plan: -- Chest xray -- EKG -- Labs -- Urinalysis -- Lasix, Duoneb and Solumedrol -- Reassess and disposition Prior Visits: Notes and results from previous visits were reviewed. Patient was last seen in the emergency department on 08/20/17 complaining of bleeding. Progress Notes: EKG shows NSR at 88 BPM with LAFB, LVH, ST wave inversions in inferior and lateral leads, changed compared to previous EKG done on 08/20/15. Interpreted by me. Report Date : 10/29/2017 14:23:09 Procedure: Chest xray Dictator : Alec Gay MD IMPRESSION: No active disease. 10/29/17 16:09 EKG is different then previous which is different than previous. Case discussed with Dr. Beebe, who agrees with plan. Aspirin only at this time. Case discussed with Dr. Guerra who agrees with admission and requests blood cultures which were ordered. - Lab Interpretations Lab Results: 10/29/17 14:20 10/29/17 14:46 Lab Results 10/29/17 14:46: Sodium 131 L, Potassium 4.6, Chloride 99, Carbon Dioxide 19 L, Anion Gap 17, BUN 22 H, Creatinine 1.3 H, Est GFR ( Amer) 50, Est GFR ( Non-Af Amer) 41, Random Glucose 112 H, Calcium 9.8, Magnesium 1.7, Total Bilirubin 1.1, AST 39 H, ALT 28, Alkaline Phosphatase 189 H, Lactate Dehydrogenase 594, Total Creatine Kinase 89, Troponin I 0.04 D, Total Protein 8.3, Albumin 4.4, Globulin 3.9, Albumin/Globulin Ratio 1.1 10/29/17 14:46: PT 14.0 H, INR 1.22 H, APTT 32.4 10/29/17 14:20: WBC 7.1, RBC 3.78, Hgb 11.0 L, Hct 32.5 L, MCV 86.0, MCH 29.1, MCHC 33.8, RDW 14.4, Plt Count 349, MPV 9.5, Gran % 65.0, Lymph % (Auto) 16.4 L , Creek % (Auto) 17.0 H, Eos % (Auto) 1.3 L, Baso % (Auto) 0.3, Gran # 4.59, Lymph # (Auto) 1.2, Creek # (Auto) 1.2 H, Eos # (Auto) 0.1, Baso # (Auto) 0.02 I have reviewed the lab results: Yes - RAD Interpretation Radiology Orders: 10/29/17 13:31 CHEST PORTABLE [RAD] Stat - Medication Orders Current Medication Orders: Discontinued Medications Albuterol/Ipratropium (Duoneb 3 Mg/0.5 Mg (3 Ml) Ud) 3 ml IH Q15M GUALBERTO Stop: 10/29/17 14:16 Last Admin: 10/29/17 14:29 Dose: 3 ml Aspirin (Aspirin Chewable) 324 mg PO STAT STA Stop: 10/29/17 15:46 Furosemide (Lasix) 40 mg IVP STAT STA Stop: 10/29/17 13:33 Last Admin: 10/29/17 14:29 Dose: 40 mg MAR Blood Pressure Document 10/29/17 14:29 GMD (Rec: 10/29/17 14:29 GMD [id number]) Blood Pressure Blood Pressure (100/60-150/90) 139/74 IVP Administration Document 10/29/17 14:29 GMD (Rec: 10/29/17 14:29 GMD [id number]) Charges for Administration # of IVP Administrations 1 Methylprednisolone (Solu-Medrol) 125 mg IVP STAT STA Stop: 10/29/17 13:33 Last Admin: 10/29/17 14:29 Dose: 125 mg IVP Administration Document 10/29/17 14:29 GMD (Rec: 10/29/17 14:30 GMD [id number]) Charges for Administration # of IVP Administrations 1 - Scribe Statement The provider has reviewed the documentation as recorded by the Robert Sims [employer] Kelly Milton Provider Scribe Attestation: All medical record entries made by the Scribe were at my direction and personally dictated by me. I have reviewed the chart and agree that the record accurately reflects my personal performance of the history, physical exam, medical decision making, and the department course for this patient. I have also personally directed, reviewed, and agree with the discharge instructions and disposition. Disposition/Present on Arrival - Present on Arrival Any Indicators Present on Arrival: No History of DVT/PE: No History of Uncontrolled Diabetes: No Urinary Catheter: No History of Decub. Ulcer: No History Surgical Site Infection Following: None - Disposition Have Diagnosis and Disposition been Completed?: Yes Diagnosis: Chest pain, COPD exacerbation, CHF (congestive heart failure) Disposition: HOSPITALIZED Disposition Time: 16:16 Patient Plan: Admission Patient Problems: Current Active Problems Problem Status Onset CHF (congestive heart failure) Acute COPD exacerbation Acute Chest pain Acute Condition: FAIR Discharge Instructions (ExitCare): Heart Failure (ED), Chest Pain (ED) Referrals: Baltazar Guerra MD [Primary Care Provider] - Follow up with primary Forms: [employer] (Kazakh)
--- NOTE | 2017-10-29 14:24 | RAD ---
HISTORY: sob COMPARISON: 06/19/2018 FINDINGS: LUNGS: No active pulmonary disease. PLEURA: No significant pleural effusion identified, no pneumothorax apparent. CARDIOVASCULAR: Mild cardiomegaly. OSSEOUS STRUCTURES: Sternal wires VISUALIZED UPPER ABDOMEN: Normal. OTHER FINDINGS: None. IMPRESSION: No active disease.
[2017-10-29] MEDS: Albuterol-Ipratrop 3 mg / 0.5 (3 ml) UD IH SCH ×3 (14:29→16:24)
[2017-10-29 14:34] LABS: BASO # 0.02 K/mm3 (0.0-2.0); BASO % 0.3 % (0.0-3.0); EOS # 0.1 (0.0-0.7); EOS % 1.3 % (1.5-5.0); GRAN # 4.59 (1.4-6.5); LYMPH # 1.2 (1.2-3.4); LYMPH % 16.4 % (22.0-35.0); MEAN CORPUSCULAR HEMOGLOBIN 29.1 pg (25.0-35.0); MEAN CORPUSCULAR HGB CONC 33.8 g/dl (31.0-37.0); MEAN PLATELET VOLUME 9.5 fl (7.0-11.0); MONO # 1.2 (0.1-0.6); RBC 3.78 10^6/uL (3.5-6.1); RED CELL DISTRIBUTION WIDTH 14.4 % (11.5-14.5); WHITE BLOOD COUNT 7.1 10^3/ul (4.5-11.0)
[2017-10-29 15:15] LABS: INR 1.22 (0.93-1.08); PARTIAL THROMBOPLASTIN TIME 32.4 Seconds (25.1-36.5)
[2017-10-29 15:42] LABS: ALB/GLOB RATIO 1.1 (1.1-1.8); ALBUMIN 4.4 g/dL (3.0-4.8); CALCIUM 9.8 mg/dL (8.4-10.5); TROPONIN I 0.04 ng/mL
[2017-10-29] MEDS ORDERED: Albuterol-Ipratrop 3 mg / 0.5 (3 ml) UD IH PRN (19:02)
[2017-10-30] MEDS ORDERED: DILTIAZEM 120 MG PO SCH (10:00)
[2017-10-30] MEDS ORDERED: RANITIDINE HCL 150 MG PO SCH (10:00)
--- NOTE | 2017-10-30 10:31 | CARD ---
APPROVED REPORT EKG Measurement Heart [id number] OR 136P [id number] <Conclusion> Normal sinus rhythm Left anterior fascicular block Left ventricular hypertrophy with repolarization abnormality Prolonged QT ST-T CHANGES. Correlate Clinically.
[2017-10-30 10:33] LABS: HEMOGLOBIN 10.4 g/dL (12.0-16.0); MEAN CELL VOLUME 85.7 fl (80.0-105.0); MEAN CORPUSCULAR HEMOGLOBIN 29.1 pg (25.0-35.0); MEAN PLATELET VOLUME 9.1 fl (7.0-11.0); RBC 3.57 10^6/uL (3.5-6.1); RED CELL DISTRIBUTION WIDTH 14.3 % (11.5-14.5); WHITE BLOOD COUNT 8.3 10^3/ul (4.5-11.0)
[2017-10-30] MEDS: diltiaZEM 120 mg/24 Hours CD Cap PO SCH (10:43)
[2017-10-30 10:55] LABS: TROPONIN I 0.06 ng/mL
[2017-10-30] MEDS: MethylPREDNISolone 40 mg Vial IVP SCH ×2 (11:31→21:53)
[2017-10-30 12:29] LABS: PH,URINE 5.5 (4.7-8.0); URINE BILIRUBIN NEGATIVE (NEGATIVE); URINE BLOOD NEGATIVE (NEGATIVE); URINE GLUCOSE (UA) NEGATIVE (NEGATIVE); URINE LEUKOCYTE ESTERASE SMALL Leu/uL (NEGATIVE); URINE PROTEIN NEGATIVE mg/dL (<30 mg/dL); URINE UROBILINOGEN 0.2 E.U./dL (<1 E.U./dL)
[2017-10-30 12:31] LABS: URINE APPEARANCE CLEAR (CLEAR); URINE COLOR YELLOW (YELLOW)
[2017-10-30 12:35] LABS: URINE RBC 0 - 2 /hpf (0-2)
[2017-10-30 12:36] LABS: URINE BACTERIA FEW (NEG)
[2017-10-30] MEDS ORDERED: Albuterol-Ipratrop 3 mg / 0.5 (3 ml) UD IH PRN ×2 (14:38→14:50)
[2017-10-30] MEDS ORDERED: Albuterol-Ipratrop 3 mg / 0.5 (3 ml) UD IH SCH (16:00)
--- NOTE | 2017-10-30 18:23 | CARD ---
APPROVED REPORT EKG Measurement Heart [id number] <Conclusion> Normal sinus rhythm Left axis deviation Moderate voltage criteria for LVH, may be normal variant Marked T wave abnormality, consider anterolateral ischemia Prolonged QT Abnormal ECG
[2017-10-30] MEDS: Budesonide 0.5 mg/2 ml Inhal Susp UD IH SCH (19:55)
[2017-10-30] MEDS: Arformoterol 15 mcg/2 ml Inh Sol IH SCH (19:55)
--- NOTE | 2017-10-30 20:59 | CON ---
DATE: REASON FOR CONSULTATION: Chest pain, cardiac evaluation. BRIEF CLINICAL HISTORY: This is a 62-year-old female with past medical history significant for paroxysmal atrial fibrillation, severe mitral regurgitation, mitral valve prolapse; history goes back 2 years ago when the patient had severe mitral valve prolapse and was referred for open heart surgery . Ultimately, the patient had open heart surgery, mitral valve repair done in 04/2017, who came yesterday with complaint of chest pain. She states that she laid down and felt that she will get better, drink some water, did not get better, so came to the emergency room. Denies any chest pain now. PAST MEDICAL HISTORY: Significant for paroxysmal atrial fibrillation, mitral regurgitation, normal coronaries, status post cardiac catheterization twice before surgery, most recently, patient had in 04/[address] Delatorre at [facility] before open heart surgery, found to be 50% LAD disease on 04/23/2017 just before open heart surgery. PAST SURGICAL HISTORY: Significant for cholecystectomy, carpal tunnel syndrome, bunionectomy, removal of bunion from the toe of the foot most recently in 02/2017, history of MVR bioprosthetic was done at [facility]. ALLERGIES: NO KNOWN DRUG ALLERGIES. SOCIAL HISTORY: Denies any smoking. Denies any history of alcohol abuse. CURRENT MEDICATIONS: The patient is taking Cardizem 120 mg daily, Zocor 20 mg daily, ranitidine 150 mg, Singulair 10, metoprolol titrate 25 mg daily, aspirin 81 mg, Eliquis 5 mg twice, and albuterol. REVIEW OF SYSTEMS: History of paroxysmal atrial fibrillation as per HPI. PHYSICAL EXAMINATION: VITAL SIGNS: Temperature afebrile, heart rate 80, blood pressure 130/80. HEENT: PERRLA. Extraocular muscles intact. NECK: Supple. No carotid bruit or thyromegaly. CHEST: Clear to auscultation. HEART: S1 and S2 regular. ABDOMEN: Soft. EXTREMITIES: Clubbing and cyanosis negative. LABORATORY DATA: Blood workup as follows: WBC 7.8, hemoglobin 11, hematocrit 32.5, and platelet count 349. Chemistry shows sodium 131, potassium 4.6, chloride 99, carbon dioxide 19, anion gap of 17, BUN 23, and creatinine 1.3. Troponin is 0.04. EKG shows normal sinus, T inversion, LVH. IMPRESSION: Chest pain; history of cardiac catheterization twice, last one 04/2017 before open heart surgery; history of mitral valve repair, mitral valve prolapse, hypertension, paroxysmal atrial fibrillation. RECOMMENDATION: Add on troponin. If the troponin remains negative, treat medically. Resume Cardizem, resume Eliquis. Lipid profile, TSH, hemoglobin A1c. Thank you, Dr. Guerra, for providing us the opportunity in taking care of the patient, Dariana Mcgregor. We will follow with you. Brittany Beebe MD
--- NOTE | 2017-10-30 23:53 | CP.PCM.PN ---
Subjective - Date & Time of Evaluation Date of Evaluation: 10/30/17 Time of Evaluation: 23:49 - Subjective Subjective: S:Patient requested benadryl for her eczema. Has complaint of itching. No other complaints. Pertinent medical record was reviewed. O: Last Vital Signs 3 Temp 97.9 F 10/30/17 17:31 Pulse 92 H 10/30/17 22:00 Resp 20 10/30/17 17:31 BP 129/82 10/30/17 17:31 Pulse Ox 96 10/30/17 05:48 Awake, alert , not in distress. SKIN: Right scapular area has minimal eczematous lesion. (Patient was seen in presence of nurse Betito) LUNGS:Normal breathing pattern. A:Itching. Hx eczema. P:Benadryl 25 mg PO x 1. Objective - Vital Signs/Intake and Output Vital Signs (last 24 hours): Temp Pulse Resp BP Pulse Ox 97.9 F 92 H 20 129/82 96 10/30/17 17:31 10/30/17 22:00 10/30/17 17:31 10/30/17 17:31 10/30/17 05:48 Intake and Output: 10/30/17 10/31/17 18:59 06:59 Intake Total 660 Balance 660 - Medications Medications: Current Medications Acetaminophen (Tylenol 325mg Tab) 650 mg PO Q6H PRN PRN Reason: Headache Last Admin: 10/30/17 23:00 Dose: 650 mg Albuterol/Ipratropium (Duoneb 3 Mg/0.5 Mg (3 Ml) Ud) 3 ml IH [id number] PRN PRN Reason: Shortness of Breath Apixaban (Eliquis) 5 mg PO BID [facility] PRN Reason: Protocol Last Admin: 10/30/17 17:10 Dose: 5 mg Arformoterol Tartrate (Brovana) 15 mcg IH [id number] [facility] Last Admin: 10/30/17 19:55 Dose: 15 mcg Aspirin (Aspirin Chewable) 81 mg PO DAILY [facility] Last Admin: 10/30/17 10:43 Dose: 81 mg Budesonide (Pulmicort Respules) 0.5 mg IH [id number] [facility] Last Admin: 10/30/17 19:55 Dose: 0.5 mg Diltiazem HCl (Cardizem Cd) 120 mg PO DAILY [facility] Last Admin: 10/30/17 10:43 Dose: 120 mg Diphenhydramine HCl (Benadryl) 25 mg PO STAT STA Stop: 10/30/17 23:49 Doxycycline Hyclate (Doryx) 100 mg PO Q12 [facility] PRN Reason: Protocol Last Admin: 10/30/17 21:53 Dose: 100 mg Famotidine (Pepcid) 20 mg PO BID [facility] Last Admin: 10/30/17 17:09 Dose: 20 mg Methylprednisolone (Solu-Medrol) 40 mg IVP Q12 [facility] Last Admin: 10/30/17 21:53 Dose: 40 mg Metoprolol Tartrate (Lopressor) 25 mg PO BID [facility] Last Admin: 10/30/17 17:09 Dose: 25 mg - Labs Labs: 10/30/17 10:19 PT 14.0 SECONDS (9.4-12.5) H 10/29/17 14:46 INR 1.22 (0.93-1.08) H 10/29/17 14:46 APTT 32.4 Seconds (25.1-36.5) 10/29/17 14:46
--- NOTE | 2017-10-31 01:30 | CON ---
DATE: PULMONARY CONSULTATION REFERRING PHYSICIAN: Baltazar Guerra MD REASON FOR CONSULTATION: Cough, shortness of breath, chronic lung disease. HISTORY OF PRESENT ILLNESS: This is a 62-year-old female with past medical history significant for chronic obstructive lung disease, history of mitral valve replacement, paroxysmal atrial fibrillation, hypertension, chronic lung disease, osteoarthritis, hyperlipidemia, congestive heart failure, comes in with cough, shortness of breath. Admits to have snoring at night, and daytime sleepy and tired. No nausea, no vomiting. No diarrhea. No leg pain, no leg swelling. PAST MEDICAL HISTORY: As per history of present illness. ALLERGIES: [employer]. SOCIAL HISTORY: History of secondhand smoking. Denied any alcohol use. FAMILY HISTORY: No significant cardiopulmonary disease reported. MEDICATIONS: She is on aspirin 81 mg daily, Cardizem CD 120 mg daily, DuoNeb every 4 hours p.r.n., Eliquis 5 mg twice a day, metoprolol tartrate 25 mg twice a day, Pepcid 20 mg twice a day, Solu-Medrol 40 mg every 12 hours. REVIEW OF SYSTEMS: No headache, no rhinitis. Admit to have snoring, daytime sleepy and tired, cough, shortness of breath. No nausea, no vomiting. No diarrhea. No leg pain or leg swelling. PHYSICAL EXAMINATION: GENERAL: Lying in the bed. VITAL SIGNS: Temperature is 98, heart rate is 99, respiratory rate is 20, blood pressure 140/79, pulse ox 96% on room air. HEENT: Small oral cavity. Crowded airway. Mallampati score is 4. NECK: Supple. No JVD. LUNGS: Have a prolonged expiratory phase with some wheezing. HEART: S1 and S2. ABDOMEN: Soft, nontender, no organomegaly. EXTREMITIES: No edema. NEUROLOGICAL: Awake, alert and follows simple command. LABORATORY DATA: Shows hemoglobin 10.4, hematocrit 30.6, WBC 8.3, platelets 330. INR 1.2. PTT 32. Sodium 131, potassium 4.6, chloride 99, bicarbonate is 19, BUN 22, creatinine 1.3, glucose 112, calcium is 9.8, AST 39, ALT 28, alk phos is 189. LDH 544. Troponin 0.06. Albumin 4.4. Cholesterol is 236, triglyceride is 72. TSH 0.15. . Had EKG done on admission, shows a normal sinus rhythm, left anterior fascicular block. Chest x-ray done in ER shows no active pulmonary disease. IMPRESSION AND PLAN: Chronic obstructive lung disease, cardiomyopathy, atrial fibrillation which is paroxysmal valvular heart disease, may have sleep apnea syndrome. Had a sleep study done, we will follow on it. Continue IV and inhaled bronchodilator. Keep head at 45 degrees. May add doxycycline 100 mg twice a day. Continue anticoagulation, gastric prophylaxis. Fall precaution. Thank you and we will follow with you. Brittany Arciniega MD
[2017-10-31 07:39] LABS: GRAN # 8.34 (1.4-6.5); GRAN % 92.5 % (50.0-68.0); HEMOGLOBIN 9.3 g/dL (12.0-16.0); LYMPH # 0.4 (1.2-3.4); LYMPH % 4.5 % (22.0-35.0); MEAN CORPUSCULAR HEMOGLOBIN 28.9 pg (25.0-35.0); MEAN CORPUSCULAR HGB CONC 33.6 g/dl (31.0-37.0); MEAN PLATELET VOLUME 9.3 fl (7.0-11.0); MONO # 0.3 (0.1-0.6); PLATELET COUNT 284 10^3/uL (120.0-450.0); RBC 3.22 10^6/uL (3.5-6.1); RED CELL DISTRIBUTION WIDTH 14.6 % (11.5-14.5)
[2017-10-31 08:09] LABS: ALB/GLOB RATIO 1.2 (1.1-1.8); ALBUMIN 3.9 g/dL (3.0-4.8); CALCIUM 9.2 mg/dL (8.4-10.5)
[2017-10-31] MEDS: Budesonide 0.5 mg/2 ml Inhal Susp UD IH SCH ×2 (08:20→22:57)
[2017-10-31] MEDS: Arformoterol 15 mcg/2 ml Inh Sol IH SCH ×2 (08:20→22:56)
[2017-10-31] MEDS ORDERED: Dextrose 5%/0.9% NS 1,000 ML IV SCH (08:30)
[2017-10-31 09:01] LABS: LYMPHOCYTE 8 % (22.0-35.0); MONOCYTE 1 % (1.0-6.0); NEUTROPHIL 91 % (50.0-70.0); PLATELET ESTIMATE NORMAL (NORMAL)
[2017-10-31] MEDS: diltiaZEM 120 mg/24 Hours CD Cap PO SCH (10:30)
[2017-10-31] MEDS: MethylPREDNISolone 40 mg Vial IVP SCH ×2 (10:30→22:31)
--- NOTE | 2017-10-31 10:30 | CP.PCM.PN ---
Subjective - Date & Time of Evaluation Date of Evaluation: 10/31/17 Time of Evaluation: 09:10 - Subjective Subjective: I feel better after my nebulizer treatment, I want to go home with it, denies chest pain Reason for consult and follow up: Cardiac evaluation, chest pain Seen and examined by me and Dr. Beebe Objective - Vital Signs/Intake and Output Vital Signs (last 24 hours): Temp Pulse Resp BP Pulse Ox 98.3 F 95 H 18 104/67 100 10/31/17 06:00 10/31/17 06:00 10/31/17 06:00 10/31/17 06:00 10/31/17 06:00 Intake and Output: 10/31/17 10/31/17 06:59 18:59 Intake Total 780 Balance 780 - Medications Medications: Current Medications Acetaminophen (Tylenol 325mg Tab) 650 mg PO Q6H PRN PRN Reason: Headache Last Admin: 10/30/17 23:00 Dose: 650 mg Albuterol/Ipratropium (Duoneb 3 Mg/0.5 Mg (3 Ml) Ud) 3 ml IH [id number] PRN PRN Reason: Shortness of Breath Apixaban (Eliquis) 5 mg PO BID [facility] PRN Reason: Protocol Last Admin: 10/30/17 17:10 Dose: 5 mg Arformoterol Tartrate (Brovana) 15 mcg IH [id number] [facility] Last Admin: 10/31/17 08:20 Dose: 15 mcg Aspirin (Aspirin Chewable) 81 mg PO DAILY [facility] Last Admin: 10/30/17 10:43 Dose: 81 mg Budesonide (Pulmicort Respules) 0.5 mg IH [id number] [facility] Last Admin: 10/31/17 08:20 Dose: 0.5 mg Diltiazem HCl (Cardizem Cd) 120 mg PO DAILY [facility] Last Admin: 10/30/17 10:43 Dose: 120 mg Doxycycline Hyclate (Doryx) 100 mg PO Q12 [facility] PRN Reason: Protocol Last Admin: 10/30/17 21:53 Dose: 100 mg Famotidine (Pepcid) 20 mg PO BID [facility] Last Admin: 10/30/17 17:09 Dose: 20 mg Dextrose/Sodium Chloride (Dextrose 5%/0.9% Ns 1000 Ml) 1,000 mls @ 70 mls/hr IV .[id number] [facility] Magnesium Oxide (Mag-Ox) 400 mg PO DAILY [facility] Methylprednisolone (Solu-Medrol) 40 mg IVP Q12 [facility] Last Admin: 10/30/17 21:53 Dose: 40 mg Metoprolol Tartrate (Lopressor) 25 mg PO BID [facility] Last Admin: 10/30/17 17:09 Dose: 25 mg - Labs Labs: 10/31/17 07:30 10/31/17 07:30 PT 14.0 SECONDS (9.4-12.5) H 10/29/17 14:46 INR 1.22 (0.93-1.08) H 10/29/17 14:46 APTT 32.4 Seconds (25.1-36.5) 10/29/17 14:46 - Constitutional Appears: No Acute Distress - Head Exam Head Exam: NORMAL INSPECTION - Eye Exam Eye Exam: Normal appearance Pupil Exam: NORMAL ACCOMODATION - ENT Exam ENT Exam: Mucous Membranes Moist - Respiratory Exam Respiratory Exam: Decreased Breath Sounds, Clear to Ausculation Bilateral, NORMAL BREATHING PATTERN - Cardiovascular Exam Cardiovascular Exam: REGULAR RHYTHM, +S1, +S2 Additional comments: NSR - GI/Abdominal Exam GI & Abdominal Exam: Soft, Normal Bowel Sounds - Extremities Exam Extremities Exam: Full ROM, Normal Capillary Refill - Neurological Exam Neurological Exam: Alert, Awake, Oriented x3 - Psychiatric Exam Psychiatric exam: Normal Affect, Normal Mood - Skin Skin Exam: Intact, Normal Color, Warm Assessment and Plan - Assessment and Plan (Free Text) Assessment: Came into the ER due to shortness of breath and chest pain. history of COPD, mitral valve rrepair for mitral prolapse, Atrial fibrillation,hypertension, osteoarthritis,hyperlipidemia and history of congestive heart failure. Plan: Negative Troponins Last cardiac cath 05/03 Symptoms more pulmonary than cardiac Dr. Arciniega on pulmonary consult Cardiac status stable,will treat medically On ASA 81 mg, Cardizem CD 120 mg daily, lopressor 25 mg BID Continue current medications Continue current treatment Will follow up Plan and treatment discussed with Dr. Beebe
[2017-10-31] MEDS: Magnesium Oxide 400 mg Tab UD PO SCH (10:31)
--- NOTE | 2017-10-31 10:56 | PN ---
DATE: 10/30/2017 SUBJECTIVE: The patient seems doing well. She is comfortable. No distress. No nausea. No vomiting. She is feeling better. She seen by Cardiology. There is no any complaint. The patient seen by chimney mechanic, seems doing well otherwise she is comfortable in no distress. PHYSICAL EXAMINATION: VITAL SIGNS: Temperature 97.9, heart rate 88, blood pressure 129/82, respirations 20. HEAD AND NECK: Normal. No JVD. No thyromegaly. CHEST: Clear, good air entry. CARDIAC: First sound and second sound normal. ABDOMEN: Soft, nontender. EXTREMITIES: No edema. NEUROLOGICAL: Normal. LABORATORY DATA: White count 8.3, hemoglobin 10.4, hematocrit 30.6, platelets 330. Her sodium 131, her BUN 22, creatinine 1.3. IMPRESSION: 1. Hyponatremia, acute renal insufficiency. We would repeat lab in the morning. We will consider Renal Consult. 2. Chest pain, short of breath. Cardiology seen her. We will discuss with him and we will continue current medications, Cardizem and beta-blockers and Eliquis, seems doing okay. 3. Asthma. 4. Atrial fibrillation, paroxysmal. 5. Hypertension. 6. Chronic obstructive pulmonary disease. 7. Chronic osteoarthritis. PLAN: Continue current therapy which is aspirin, Brovana, Cardizem, Eliquis, Lopressor, Pepcid and currently on IV Solu-Medrol every 12. Continue current therapy. Baltazar Guerra MD .
--- NOTE | 2017-10-31 13:03 | CT ---
PROCEDURE: CT Abdomen and Pelvis without intravenous contrast HISTORY: r/o kidney stone COMPARISON: None. TECHNIQUE: Without contrast. Contrast Dose: Radiation dose: Total exam DLP = Total exam DLP = 790 mGy-cm. This CT exam was performed using one or more of the following dose reduction techniques: Automated exposure control, adjustment of the mA and/or kV according to patient size, and/or use of iterative reconstruction technique. FINDINGS: LOWER THORAX: Unremarkable. LIVER: Unremarkable. No gross lesion or ductal dilatation. GALLBLADDER AND BILE DUCTS: Gallbladder removed PANCREAS: Unremarkable. No gross lesion or ductal dilatation. SPLEEN: Unremarkable. ADRENALS: Unremarkable. No mass. KIDNEYS AND URETERS: Unremarkable. No hydronephrosis. No solid mass. VASCULATURE: Unremarkable. No aortic aneurysm. BOWEL: Unremarkable. No obstruction. No gross mural thickening. APPENDIX: Unremarkable. Normal appendix. PERITONEUM: Unremarkable. No free fluid. No free air. LYMPH NODES: Unremarkable. No enlarged lymph nodes. BLADDER: Unremarkable. REPRODUCTIVE: Unremarkable. BONES: No acute fracture. OTHER FINDINGS: None. IMPRESSION: No acute findings. No evidence of urolithiasis
--- NOTE | 2017-10-31 13:07 | CP.PCM.CON ---
<Sheila Bull - Last Filed: 10/31/17 13:17> History of Present Illness - History of Present Illness History of Present Illness: Nephrology consult note for Dr. Workman 62 year old female with past medical history of asthma, paroxysmal Afib, HTN, MR s/p valve replacement in 04/2018 presents to [facility] With chest pain and shortness of breath. Nephrology service was consulted for sudden increase of BUN and creatinine. Patient reports she was never diagnosed with renal problems such as stones or infections in her life. She denies family history of renal illness. Patient does report of few episodes of nocturia in the past 2 months. Patient's PMD had originally started her on Lasix BID but discontinued 1 month ago due to an unknown reason. She has been actively trying to lose weight for the past few month and denies decreased of appetite. Patient further denies having fever, chills, headache, abdominal pain, nausea, vomiting , or change of urine color. Review of Systems - Constitutional Constitutional: As Per HPI. absent: Anorexia, Chills, Fever - EENT Eyes: As Per HPI. absent: Blind Spots, Blurred Vision, Change in Vision, Decreased Night Vision Ears: As Per HPI. absent: Decreased Hearing, Dizziness Nose/Mouth/Throat: As Per HPI. absent: Epistaxis, Nasal Trauma, Nose Pain - Breasts Breasts: As Per HPI. absent: Change in Shape, Mass - Cardiovascular Cardiovascular: As Per HPI. absent: Chest Pain, Edema - Respiratory Respiratory: As Per HPI. absent: Cough, Dyspnea, Hemoptysis - Gastrointestinal Gastrointestinal: As Per HPI. absent: Abdominal Pain, Belching, Change in Stool Character - Genitourinary Genitourinary: As Per HPI, Nocturia. absent: Dysuria, Hematuria, Freq UTI, Hx Renal/Bladder Calculi - Reproductive: Female Reproductive:Female: As Per HPI - Menstruation Menstruation: As Per HPI - Musculoskeletal Musculoskeletal: As Per HPI. absent: Numbness, Tingling - Integumentary Integumentary: As Per HPI. absent: Acne, Change in Nails, Change in Pigmentation - Neurological Neurological: As Per HPI. absent: Abnormal Gait, Abnormal Speech, Behavioral Changes - Psychiatric Psychiatric: As Per HPI. absent: Abnormal Sleep Pattern, Auditory Hallucinations, Behavioral Changes - Endocrine Endocrine: As Per HPI. absent: Change in Body Appearance - Hematologic/Lymphatic Hematologic: As Per HPI Past Patient History - Infectious Disease Hx of Infectious Diseases: None - Tetanus Immunizations Tetanus Immunization: Unknown - Past Social History Smoking Status: Never Smoked - CARDIAC Hx Cardiac Disorders: Yes Hx Hypertension: Yes Hx Pacemaker: No Other/Comment: Mitral Valve Replacement 04/23 - PULMONARY Hx Respiratory Disorders: Yes Hx Asthma: Yes Hx Chronic Obstructive Pulmonary Disease (COPD): Yes - NEUROLOGICAL Hx Neurological Disorder: Yes Hx Dizziness: Yes Hx Migraine: Yes - HEENT Hx HEENT Problems: No - RENAL Hx Chronic Kidney Disease: No - ENDOCRINE/METABOLIC Hx Endocrine Disorders: No - HEMATOLOGICAL/ONCOLOGICAL Hx Blood Disorders: No - INTEGUMENTARY Hx Dermatological Problems: No - MUSCULOSKELETAL/RHEUMATOLOGICAL Hx Musculoskeletal Disorders: No Hx Falls: No - GASTROINTESTINAL Hx Gastrointestinal Disorders: No - GENITOURINARY/GYNECOLOGICAL Hx Genitourinary Disorders: No - PSYCHIATRIC Hx Psychophysiologic Disorder: No Hx Emotional Abuse: No Hx Physical Abuse: No Hx Substance Use: No - SURGICAL HISTORY Other/Comment: Mitral Valve Replacement - ANESTHESIA Hx Anesthesia: Yes Hx Anesthesia Reactions: No Hx Malignant Hyperthermia: No Meds Allergies/Adverse Reactions: Allergies Allergy/AdvReac Type Severity Reaction Status Date / Time cinnamon Allergy Intermediate ANAPHYLAXIS Verified 10/29/17 13:23 - Medications Medications: Current Medications Acetaminophen (Tylenol 325mg Tab) 650 mg PO Q6H PRN PRN Reason: Headache Last Admin: 10/30/17 23:00 Dose: 650 mg Albuterol/Ipratropium (Duoneb 3 Mg/0.5 Mg (3 Ml) Ud) 3 ml IH [id number] PRN PRN Reason: Shortness of Breath Apixaban (Eliquis) 5 mg PO BID [facility] PRN Reason: Protocol Last Admin: 10/31/17 10:30 Dose: 5 mg Arformoterol Tartrate (Brovana) 15 mcg IH [id number] [facility] Last Admin: 10/31/17 08:20 Dose: 15 mcg Aspirin (Aspirin Chewable) 81 mg PO DAILY [facility] Last Admin: 10/31/17 10:31 Dose: 81 mg Budesonide (Pulmicort Respules) 0.5 mg IH [id number] [facility] Last Admin: 10/31/17 08:20 Dose: 0.5 mg Diltiazem HCl (Cardizem Cd) 120 mg PO DAILY [facility] Last Admin: 10/31/17 10:30 Dose: 120 mg Doxycycline Hyclate (Doryx) 100 mg PO Q12 [facility] PRN Reason: Protocol Last Admin: 10/31/17 10:30 Dose: 100 mg Famotidine (Pepcid) 20 mg PO BID [facility] Last Admin: 10/31/17 10:30 Dose: 20 mg Dextrose/Sodium Chloride (Dextrose 5%/0.9% Ns 1000 Ml) 1,000 mls @ 70 mls/hr IV .[id number] [facility] Magnesium Oxide (Mag-Ox) 400 mg PO DAILY [facility] Last Admin: 10/31/17 10:31 Dose: 400 mg Methylprednisolone (Solu-Medrol) 40 mg IVP Q12 [facility] Last Admin: 10/31/17 10:30 Dose: 40 mg Metoprolol Tartrate (Lopressor) 25 mg PO BID [facility] Last Admin: 10/31/17 10:31 Dose: 25 mg Physical Exam - Additional Findings Additional findings: - Constitutional Appears: No Acute Distress - Head Exam Head Exam: NORMAL INSPECTION - Eye Exam Eye Exam: Normal appearance Pupil Exam: NORMAL ACCOMODATION - ENT Exam ENT Exam: Mucous Membranes Moist - Respiratory Exam Respiratory Exam: Clear to Ausculation Bilateral, NORMAL BREATHING PATTERN - Cardiovascular Exam Cardiovascular Exam: REGULAR RHYTHM, +S1, +S2 - GI/Abdominal Exam GI & Abdominal Exam: Soft, Normal Bowel Sounds - Extremities Exam Extremities Exam: Full ROM, Normal Capillary Refill, No Edema - Neurological Exam Neurological Exam: Alert, Awake, Oriented x3 - Psychiatric Exam Psychiatric exam: Normal Affect, Normal Mood - Skin Skin Exam: Intact, Normal Color, Warm Results - Vital Signs Recent Vital Signs: Last Vital Signs Temp 97.7 F 10/31/17 12:00 Pulse 82 10/31/17 12:00 Resp 17 10/31/17 12:00 BP 130/72 10/31/17 12:00 Pulse Ox 100 10/31/17 06:00 - Labs Result Diagrams: 10/31/17 07:30 10/31/17 07:30 Labs: Laboratory Results - last 24 hr 10/30/17 10/31/17 10/31/17 10:20 07:30 07:30 WBC 9.0 RBC 3.22 L Hgb 9.3 L Hct 27.7 L MCV 86.0 MCH 28.9 MCHC 33.6 RDW 14.6 H Plt Count 284 MPV 9.3 Gran % 92.5 H Lymph % (Auto) 4.5 L Nelson % (Auto) 3.0 Eos % (Auto) 0.0 L Baso % (Auto) 0.0 Gran # 8.34 H Lymph # (Auto) 0.4 L Nelson # (Auto) 0.3 Eos # (Auto) 0.0 Baso # (Auto) 0.00 Neutrophils % (Manual) 91 H Lymphocytes % (Manual) 8 L Monocytes % (Manual) 1 Platelet Evaluation Normal Sodium 130 L Potassium 5.1 H Chloride 101 Carbon Dioxide 17 L Anion Gap 18 BUN 50 H Creatinine 2.0 H Est GFR ( Amer) 30 Est GFR (Non-Af Amer) 25 Random Glucose 159 H Hemoglobin A1c 6.0 Calcium 9.2 Phosphorus 3.6 Magnesium 1.6 L Total Bilirubin 0.2 AST 22 ALT 19 Alkaline Phosphatase 141 H D Troponin I Total Protein 7.2 Albumin 3.9 Globulin 3.3 Albumin/Globulin Ratio 1.2 10/31/17 08:30 WBC RBC Hgb Hct MCV MCH MCHC RDW Plt Count MPV Gran % Lymph % (Auto) Nelson % (Auto) Eos % (Auto) Baso % (Auto) Gran # Lymph # (Auto) Nelson # (Auto) Eos # (Auto) Baso # (Auto) Neutrophils % (Manual) Lymphocytes % (Manual) Monocytes % (Manual) Platelet Evaluation Sodium Potassium Chloride Carbon Dioxide Anion Gap BUN Creatinine Est GFR ( Amer) Est GFR (Non-Af Amer) Random Glucose Hemoglobin A1c Calcium Phosphorus Magnesium Total Bilirubin AST ALT Alkaline Phosphatase Troponin I 0.04 D Total Protein Albumin Globulin Albumin/Globulin Ratio Assessment & Plan - Assessment and Plan (Free Text) Assessment: Acute renal failure -Likely secondary recent medication dose changes -Baseline Cr 0.9, today 2.0 -Bladder ultrasound to check post void residual volume -Abdomen CT to rule out nephrolithiasis -Follow up urinalysis and cultures -Follow up microalbumin with Cr ratio -Avoid nephrotoxic agents -Continue IVF Electrolyte imbalance -Continue IVF -Avoid potassium rich food such as banana and orange juice -Follow up urine osmolality, sodium Discussed with attending Dr. Workman <Vishal Workman - Last Filed: 10/31/17 19:02> Meds - Medications Medications: Current Medications Acetaminophen (Tylenol 325mg Tab) 650 mg PO Q6H PRN PRN Reason: Headache Last Admin: 10/30/17 23:00 Dose: 650 mg Albuterol/Ipratropium (Duoneb 3 Mg/0.5 Mg (3 Ml) Ud) 3 ml IH [id number] PRN PRN Reason: Shortness of Breath Apixaban (Eliquis) 5 mg PO BID [facility] PRN Reason: Protocol Last Admin: 10/31/17 18:08 Dose: 5 mg Arformoterol Tartrate (Brovana) 15 mcg IH [id number] [facility] Last Admin: 10/31/17 08:20 Dose: 15 mcg Aspirin (Aspirin Chewable) 81 mg PO DAILY [facility] Last Admin: 10/31/17 10:31 Dose: 81 mg Budesonide (Pulmicort Respules) 0.5 mg IH [id number] [facility] Last Admin: 10/31/17 08:20 Dose: 0.5 mg Diltiazem HCl (Cardizem Cd) 120 mg PO DAILY [facility] Last Admin: 10/31/17 10:30 Dose: 120 mg Doxycycline Hyclate (Doryx) 100 mg PO Q12 [facility] PRN Reason: Protocol Last Admin: 10/31/17 10:30 Dose: 100 mg Famotidine (Pepcid) 20 mg PO BID [facility] Last Admin: 10/31/17 18:09 Dose: 20 mg Dextrose/Sodium Chloride (Dextrose 5%/0.9% Ns 1000 Ml) 1,000 mls @ 70 mls/hr IV .[id number] [facility] Last Admin: 10/31/17 09:22 Dose: 70 mls/hr Magnesium Oxide (Mag-Ox) 400 mg PO DAILY [facility] Last Admin: 10/31/17 10:31 Dose: 400 mg Methylprednisolone (Solu-Medrol) 40 mg IVP Q12 [facility] Last Admin: 10/31/17 10:30 Dose: 40 mg Metoprolol Tartrate (Lopressor) 25 mg PO BID [facility] Last Admin: 10/31/17 18:08 Dose: 25 mg Results - Vital Signs Recent Vital Signs: Last Vital Signs Temp 97.7 F 10/31/17 12:00 Pulse 93 H 10/31/17 18:08 Resp 17 10/31/17 12:00 BP 142/81 10/31/17 18:08 Pulse Ox 100 10/31/17 06:00 - Labs Result Diagrams: 10/31/17 07:30 10/31/17 07:30 Labs: Laboratory Results - last 24 hr 10/31/17 10/31/17 10/31/17 07:30 07:30 08:30 WBC 9.0 RBC 3.22 L Hgb 9.3 L Hct 27.7 L MCV 86.0 MCH 28.9 MCHC 33.6 RDW 14.6 H Plt Count 284 MPV 9.3 Gran % 92.5 H Lymph % (Auto) 4.5 L Nelson % (Auto) 3.0 Eos % (Auto) 0.0 L Baso % (Auto) 0.0 Gran # 8.34 H Lymph # (Auto) 0.4 L Nelson # (Auto) 0.3 Eos # (Auto) 0.0 Baso # (Auto) 0.00 Neutrophils % (Manual) 91 H Lymphocytes % (Manual) 8 L Monocytes % (Manual) 1 Platelet Evaluation Normal Sodium 130 L Potassium 5.1 H Chloride 101 Carbon Dioxide 17 L Anion Gap 18 BUN 50 H Creatinine 2.0 H Est GFR ( Amer) 30 Est GFR (Non-Af Amer) 25 Random Glucose 159 H Calcium 9.2 Phosphorus 3.6 Magnesium 1.6 L Total Bilirubin 0.2 AST 22 ALT 19 Alkaline Phosphatase 141 H D Troponin I 0.04 D Total Protein 7.2 Albumin 3.9 Globulin 3.3 Albumin/Globulin Ratio 1.2 Urine Color Urine Appearance Urine pH Ur Specific Lavon Urine Protein Urine Glucose (UA) Urine Ketones Urine Blood Urine Nitrate Urine Bilirubin Urine Urobilinogen Ur Leukocyte Esterase Urine RBC Urine WBC Ur Epithelial Cells Urine Bacteria Urine Osmolality Ur Random Creatinine U Random Total Protein Ur Random Sodium Ur Random Urea Nitrogn 10/31/17 10/31/17 10/31/17 14:18 14:18 14:18 WBC RBC Hgb Hct MCV MCH MCHC RDW Plt Count MPV Gran % Lymph % (Auto) Nelson % (Auto) Eos % (Auto) Baso % (Auto) Gran # Lymph # (Auto) Nelson # (Auto) Eos # (Auto) Baso # (Auto) Neutrophils % (Manual) Lymphocytes % (Manual) Monocytes % (Manual) Platelet Evaluation Sodium Potassium Chloride Carbon Dioxide Anion Gap BUN Creatinine Est GFR ( Amer) Est GFR (Non-Af Amer) Random Glucose Calcium Phosphorus Magnesium Total Bilirubin AST ALT Alkaline Phosphatase Troponin I Total Protein Albumin Globulin Albumin/Globulin Ratio Urine Color Urine Appearance Urine pH Ur Specific [place] Urine Protein Urine Glucose (UA) Urine Ketones Urine Blood Urine Nitrate Urine Bilirubin Urine Urobilinogen Ur Leukocyte Esterase Urine RBC Urine WBC Ur Epithelial Cells Urine Bacteria Urine Osmolality 364 Ur Random Creatinine 94 U Random Total Protein 9 Ur Random Sodium < 5 Ur Random Urea Nitrogn 648 10/31/17 14:18 WBC RBC Hgb Hct MCV MCH MCHC RDW Plt Count MPV Gran % Lymph % (Auto) Nelson % (Auto) Eos % (Auto) Baso % (Auto) Gran # Lymph # (Auto) Nelson # (Auto) Eos # (Auto) Baso # (Auto) Neutrophils % (Manual) Lymphocytes % (Manual) Monocytes % (Manual) Platelet Evaluation Sodium Potassium Chloride Carbon Dioxide Anion Gap BUN Creatinine Est GFR ( Amer) Est GFR (Non-Af Amer) Random Glucose Calcium Phosphorus Magnesium Total Bilirubin AST ALT Alkaline Phosphatase Troponin I Total Protein Albumin Globulin Albumin/Globulin Ratio Urine Color Yellow Urine Appearance Clear Urine pH 6.0 Ur Specific [place] 1.010 Urine Protein Negative Urine Glucose (UA) Negative Urine Ketones Negative Urine Blood Negative Urine Nitrate Negative Urine Bilirubin Negative Urine Urobilinogen 0.2 Ur Leukocyte Esterase Trace H Urine RBC 0 - 2 Urine WBC 1 - 3 Ur Epithelial Cells 1 - 3 Urine Bacteria Few Urine Osmolality Ur Random Creatinine U Random Total Protein Ur Random Sodium Ur Random Urea Nitrogn Attending/Attestation - Attestation I have personally seen and examined this patient.: Yes I have fully participated in the care of the patient.: Yes I have reviewed all pertinent clinical information: Yes Notes (Text): Patient seen and examined; I agree with the resident's note as above with the following additions/edits: 62 yo F w/ pmh of asthma, paroxysmal Afib, HTN, non-obstructive CAD, s/p mitral valve replacement (04/2018), presented with chest pain and shortness of breath; nephrology service being consulted for acute renal failure; On further perusal of records, patient has had multiple episodes of KEYSHA with increase of serum creatinine from baseline of ~0.9 before quickly improving; on current admission, serum creat already at 1.3, increased to 2.0 today; of note, patient received IV lasix 40 mg x 1 dose in ED yesterday; urine lytes consistent with pre-renal etiology with Ur Na < 5; likely very sensitive to hemodynamic changes (SBP in low 100's this morning), cannot rule out cardiorenal component but appears relatively euvolemic on exam; has some renal asymmetry on previous US with smaller L kidney but no vascular calcifications seen on CT; Normal post-void residual volume on bladder US; -Agree with IVF w/ NS at 70 cc/hr -continue to hold diuretics; -will obtain renal artery duplex to look for stenosis (although lack of uncontrolled hypertension makes this doubtful); -mild hyperkalemia, low K diet for now; mild metabolic acidosis; should improve as renal function improves -mild hyponatremia, should improve with volume repletion; 10/31/17 18:47
[2017-10-31 14:33] LABS: URINE BILIRUBIN NEGATIVE (NEGATIVE); URINE BLOOD NEGATIVE (NEGATIVE); URINE GLUCOSE (UA) NEGATIVE (NEGATIVE); URINE LEUKOCYTE ESTERASE TRACE Leu/uL (NEGATIVE); URINE PROTEIN NEGATIVE mg/dL (<30 mg/dL); URINE UROBILINOGEN 0.2 E.U./dL (<1 E.U./dL)
[2017-10-31 14:34] LABS: URINE APPEARANCE CLEAR (CLEAR); URINE COLOR YELLOW (YELLOW)
[2017-10-31 14:46] LABS: CREATININE,RANDOM URINE 94 mg/dL
[2017-10-31 14:50] LABS: OSMOLALITY,URINE 364 mosm/kg (300-1000)
[2017-10-31 14:57] LABS: URINE BACTERIA FEW (NEG); URINE RBC 0 - 2 /hpf (0-2)
[2017-10-31 15:02] LABS: TOTAL PROTEIN,RANDOM URINE 9 mg/L
--- NOTE | 2017-10-31 18:18 | US ---
PROCEDURE: Urinary bladder ultrasound HISTORY: check post-void residual volume COMPARISON: None TECHNIQUE: Standard protocol for this study/examination. FINDINGS: Urinary bladder assessment: Prevoid volume: 485.5 ml Postvoid residual: 29.4 ml Intrinsic, mural, perivesical abnormalities: None IMPRESSION: Unremarkable urinary bladder wall. No focal or diffuse abnormalities. Bladder wall thickening on the postvoid component of this study likely related to decreased urinary bladder state.
[2017-10-31 20:20] VITALS: RESP 20
--- NOTE | 2017-10-31 23:24 | CP.PCM.PN ---
Subjective - Date & Time of Evaluation Date of Evaluation: 10/31/17 Time of Evaluation: 23:22 - Subjective Subjective: Patient was seen once for insertion for heparin lock. Later on nurse calls and tells that patient has itching. Has no other complaints. Medical record was reviewed. This 62 year old woman was admitted for left sided chest pain , CHF / COPD exacerbation. Has PMH of HTN,HLD,AFib,CHF, COPD, valve replacement. Objective - Vital Signs/Intake and Output Vital Signs (last 24 hours): Temp Pulse Resp BP Pulse Ox 97.9 F 93 H 20 142/81 100 10/31/17 16:00 10/31/17 18:08 10/31/17 16:00 10/31/17 18:08 10/31/17 16:00 - Medications Medications: Current Medications Acetaminophen (Tylenol 325mg Tab) 650 mg PO Q6H PRN PRN Reason: Headache Last Admin: 10/30/17 23:00 Dose: 650 mg Albuterol/Ipratropium (Duoneb 3 Mg/0.5 Mg (3 Ml) Ud) 3 ml IH [id number] PRN PRN Reason: Shortness of Breath Apixaban (Eliquis) 5 mg PO BID [facility] PRN Reason: Protocol Last Admin: 10/31/17 18:08 Dose: 5 mg Arformoterol Tartrate (Brovana) 15 mcg IH [id number] [facility] Last Admin: 10/31/17 22:56 Dose: Not Given Aspirin (Aspirin Chewable) 81 mg PO DAILY [facility] Last Admin: 10/31/17 10:31 Dose: 81 mg Budesonide (Pulmicort Respules) 0.5 mg IH [id number] [facility] Last Admin: 10/31/17 22:57 Dose: Not Given Diltiazem HCl (Cardizem Cd) 120 mg PO DAILY [facility] Last Admin: 10/31/17 10:30 Dose: 120 mg Doxycycline Hyclate (Doryx) 100 mg PO Q12 [facility] PRN Reason: Protocol Last Admin: 10/31/17 22:09 Dose: 100 mg Famotidine (Pepcid) 20 mg PO BID [facility] Last Admin: 10/31/17 18:09 Dose: 20 mg Dextrose/Sodium Chloride (Dextrose 5%/0.9% Ns 1000 Ml) 1,000 mls @ 70 mls/hr IV .[id number] [facility] Last Admin: 10/31/17 09:22 Dose: 70 mls/hr Magnesium Oxide (Mag-Ox) 400 mg PO DAILY [facility] Last Admin: 10/31/17 10:31 Dose: 400 mg Methylprednisolone (Solu-Medrol) 40 mg IVP Q12 [facility] Last Admin: 10/31/17 22:31 Dose: 40 mg Metoprolol Tartrate (Lopressor) 25 mg PO BID [facility] Last Admin: 10/31/17 18:08 Dose: 25 mg - Labs Labs: 10/31/17 07:30 10/31/17 07:30 PT 14.0 SECONDS (9.4-12.5) H 10/29/17 14:46 INR 1.22 (0.93-1.08) H 10/29/17 14:46 APTT 32.4 Seconds (25.1-36.5) 10/29/17 14:46 - Constitutional Appears: Well, No Acute Distress - Head Exam Head Exam: ATRAUMATIC, NORMAL INSPECTION, NORMOCEPHALIC - Eye Exam Eye Exam: Normal appearance - ENT Exam ENT Exam: Normal External Ear Exam - Neck Exam Neck Exam: Normal Inspection - Respiratory Exam Respiratory Exam: NORMAL BREATHING PATTERN - Cardiovascular Exam Cardiovascular Exam: absent: JVD - GI/Abdominal Exam GI & Abdominal Exam: absent: Distended - Rectal Exam Rectal Exam: Deferred - Exam Additional comments: Deferred. - Extremities Exam Extremities Exam: Normal Inspection - Back Exam Back Exam: NORMAL INSPECTION - Neurological Exam Neurological Exam: Alert, Awake, Oriented x3 - Psychiatric Exam Psychiatric exam: Normal Affect, Normal Mood - Skin Skin Exam: Normal Color Additional comments: No rash noted. Assessment and Plan - Assessment and Plan (Free Text) Assessment: Poor venous access. Itching. HTN. HLD. A.Fib. CHF. COPD. Plan: Benadryl 25 mg PO X 1. # 24 angiocath was inserted in left forearm. Continue present management.
--- NOTE | 2017-11-01 00:11 | PN ---
DATE: 10/31/2017 PULMONARY PROGRESS NOTE REFERRING PHYSICIAN: Baltazar Guerra MD SUBJECTIVE: She is lying in the bed, feels a little better today. No headache, no rhinitis. Still has some cough. No nausea, no vomiting, no diarrhea. No leg pain or leg swelling. OBJECTIVE: GENERAL: In no acute distress. VITAL SIGNS: Temperature is 98, heart rate is 92, respiratory rate is 20, blood pressure 142/81, pulse ox 100% on nasal cannula. HEENT: Moist mucous membrane. Crowded airway. NECK: Supple. No JVD. LUNGS: Have a scattered rhonchi. HEART: S1 and S2. ABDOMEN: Soft, nontender, no organomegaly. EXTREMITIES: No edema. NEUROLOGIC: Awake, alert, and follows simple command. MEDICATIONS: She is on aspirin 81 mg daily, Brovana inhaled twice a day, Cardizem CD 120 mg daily, IV fluid D5 normal saline 70 mL per hour, doxycycline 100 mg twice a day, albuterol/Atrovent nebulizer every 4 hour p.r.n., Eliquis 5 mg twice a day, metoprolol tartrate 25 mg twice a day, magnesium oxide 400 mg daily, Pepcid 20 mg twice a day, Pulmicort inhaled twice a day, Solu-Medrol 40 mg twice day, Tylenol p.r.n. basis. LABORATORY DATA: Shows hemoglobin 9.3, hematocrit 27.7, WBC 9, platelet is 284. Sodium 130, potassium 4.1, chloride 101, bicarbonate 17, BUN 50, creatinine 2, glucose is 159, calcium is 9.2, phosphorus 3.6, magnesium 1.6. AST 22, ALT 19, alk phos is 141. Troponin 0.04. Albumin is 3.9. TSH 0.15. Microbiology: Blood culture has been negative. Had a CAT scan of the abdomen and pelvis done today, which shows no acute finding. IMPRESSION AND PLAN: Chronic obstructive lung disease, cardiomyopathy, atrial fibrillation, valvular heart disease, may have sleep apnea syndrome. Pulmonary point view, doing okay. Continue IV and inhaled bronchodilator. Keep head at 45 degrees. Gastric prophylaxis, anticoagulation, fall precaution. We would recommend followup PFT, outpatient. May benefit from therapy and we will follow with you. Brittany Arciniega MD [facility] # [id number]
[2017-11-01] MEDS: Arformoterol 15 mcg/2 ml Inh Sol IH SCH ×3 (00:26→09:19)
[2017-11-01] MEDS: Budesonide 0.5 mg/2 ml Inhal Susp UD IH SCH ×4 (00:28→09:20)
[2017-11-01 07:30] LABS: ALB/GLOB RATIO 1.1 (1.1-1.8); ALBUMIN 3.8 g/dL (3.0-4.8); CALCIUM 9.4 mg/dL (8.4-10.5)
--- NOTE | 2017-11-01 07:36 | CP.PCM.PN ---
Subjective - Date & Time of Evaluation Date of Evaluation: 11/01/17 Time of Evaluation: 06:45 - Subjective Subjective: Lying in bed, 1 pillow, sleeping but easily awaken,I feel better today, denies chest pain Reason for consult and follow up: Cardiac evaluation, chest pain Seen and examined by me and Dr. Beebe Objective - Vital Signs/Intake and Output Vital Signs (last 24 hours): Temp Pulse Resp BP Pulse Ox 97.9 F 93 H 20 142/81 100 10/31/17 16:00 10/31/17 18:08 10/31/17 16:00 10/31/17 18:08 10/31/17 16:00 - Medications Medications: Current Medications Acetaminophen (Tylenol 325mg Tab) 650 mg PO Q6H PRN PRN Reason: Headache Last Admin: 10/30/17 23:00 Dose: 650 mg Albuterol/Ipratropium (Duoneb 3 Mg/0.5 Mg (3 Ml) Ud) 3 ml IH [id number] PRN PRN Reason: Shortness of Breath Apixaban (Eliquis) 5 mg PO BID [facility] PRN Reason: Protocol Last Admin: 10/31/17 18:08 Dose: 5 mg Arformoterol Tartrate (Brovana) 15 mcg IH [id number] [facility] Last Admin: 11/01/17 00:26 Dose: 15 mcg Aspirin (Aspirin Chewable) 81 mg PO DAILY [facility] Last Admin: 10/31/17 10:31 Dose: 81 mg Budesonide (Pulmicort Respules) 0.5 mg IH [id number] [facility] Last Admin: 11/01/17 00:29 Dose: Not Given Diltiazem HCl (Cardizem Cd) 120 mg PO DAILY [facility] Last Admin: 10/31/17 10:30 Dose: 120 mg Doxycycline Hyclate (Doryx) 100 mg PO Q12 [facility] PRN Reason: Protocol Last Admin: 10/31/17 22:09 Dose: 100 mg Famotidine (Pepcid) 20 mg PO BID [facility] Last Admin: 10/31/17 18:09 Dose: 20 mg Dextrose/Sodium Chloride (Dextrose 5%/0.9% Ns 1000 Ml) 1,000 mls @ 70 mls/hr IV [id number] [facility] Last Admin: 10/31/17 09:22 Dose: 70 mls/hr Magnesium Oxide (Mag-Ox) 400 mg PO DAILY [facility] Last Admin: 10/31/17 10:31 Dose: 400 mg Methylprednisolone (Solu-Medrol) 40 mg IVP Q12 [facility] Last Admin: 10/31/17 22:31 Dose: 40 mg Metoprolol Tartrate (Lopressor) 25 mg PO BID [facility] Last Admin: 10/31/17 18:08 Dose: 25 mg - Labs Labs: 10/31/17 07:30 11/01/17 06:58 PT 14.0 SECONDS (9.4-12.5) H 10/29/17 14:46 INR 1.22 (0.93-1.08) H 10/29/17 14:46 APTT 32.4 Seconds (25.1-36.5) 10/29/17 14:46 - Constitutional Appears: No Acute Distress - Head Exam Head Exam: NORMAL INSPECTION - Eye Exam Eye Exam: Normal appearance - ENT Exam ENT Exam: Mucous Membranes Moist - Neck Exam Neck Exam: Full ROM, Normal Inspection - Respiratory Exam Respiratory Exam: Decreased Breath Sounds, Clear to Ausculation Bilateral, NORMAL BREATHING PATTERN - Cardiovascular Exam Cardiovascular Exam: +S1, +S2 Additional comments: No JVD - GI/Abdominal Exam GI & Abdominal Exam: Soft, Normal Bowel Sounds - Extremities Exam Extremities Exam: Full ROM, Normal Capillary Refill - Neurological Exam Neurological Exam: Alert, Awake, Oriented x3 - Psychiatric Exam Psychiatric exam: Normal Affect, Normal Mood - Skin Skin Exam: Intact, Normal Color, Warm Assessment and Plan - Assessment and Plan (Free Text) Assessment: IMPRESSION: Came into the ER due to shortness of breath and chest pain. history of COPD, mitral valve rrepair for mitral prolapse, Atrial fibrillation, hypertension,osteoarthritis,hyperlipidemia and history of congestive heart failure. Plan: BUN and creatinine elevated- being evaluated/consulted by Renal Negative Troponins Stable cardiac status Dr. Arciniega on pulmonary consult Cardiac status stable,will treat medically On ASA 81 mg, Cardizem CD 120 mg daily, Lopressor 25 mg BID Continue current medications Continue current treatment Will follow up Plan and treatment discussed with Dr. Beebe
[2017-11-01 08:56] VITALS: BP 159/85; PULSE 76; TEMP 97.6; O2SAT 99
[2017-11-01] MEDS: diltiaZEM 120 mg/24 Hours CD Cap PO SCH (09:05)
[2017-11-01] MEDS: Magnesium Oxide 400 mg Tab UD PO SCH (09:07)
[2017-11-01] MEDS: MethylPREDNISolone 40 mg Vial IVP SCH (09:08)
--- NOTE | 2017-11-01 11:44 | CP.PCM.PN ---
Subjective - Date & Time of Evaluation Date of Evaluation: 11/01/17 Time of Evaluation: 11:40 - Subjective Subjective: Reports no more shortness of breath; urinating well; gets swelling in ankles if she doesn't take diuretics; Objective - Vital Signs/Intake and Output Vital Signs (last 24 hours): Temp Pulse Resp BP Pulse Ox 97.6 F 76 20 159/85 H 99 11/01/17 08:55 11/01/17 09:06 11/01/17 08:55 11/01/17 09:06 11/01/17 08:55 - Medications Medications: Current Medications Acetaminophen (Tylenol 325mg Tab) 650 mg PO Q6H PRN PRN Reason: Headache Last Admin: 10/30/17 23:00 Dose: 650 mg Albuterol/Ipratropium (Duoneb 3 Mg/0.5 Mg (3 Ml) Ud) 3 ml IH [id number] PRN PRN Reason: Shortness of Breath Apixaban (Eliquis) 5 mg PO BID [facility] PRN Reason: Protocol Last Admin: 11/01/17 09:06 Dose: 5 mg Arformoterol Tartrate (Brovana) 15 mcg IH [id number] [facility] Last Admin: 11/01/17 09:19 Dose: 15 mcg Aspirin (Aspirin Chewable) 81 mg PO DAILY [facility] Last Admin: 11/01/17 09:05 Dose: 81 mg Budesonide (Pulmicort Respules) 0.5 mg IH [id number] [facility] Last Admin: 11/01/17 09:20 Dose: 0.5 mg Diltiazem HCl (Cardizem Cd) 120 mg PO DAILY [facility] Last Admin: 11/01/17 09:05 Dose: 120 mg Doxycycline Hyclate (Doryx) 100 mg PO Q12 [facility] PRN Reason: Protocol Last Admin: 11/01/17 09:06 Dose: 100 mg Famotidine (Pepcid) 20 mg PO BID [facility] Last Admin: 11/01/17 09:07 Dose: 20 mg Magnesium Oxide (Mag-Ox) 400 mg PO DAILY [facility] Last Admin: 11/01/17 09:07 Dose: 400 mg Methylprednisolone (Solu-Medrol) 40 mg IVP Q12 [facility] Last Admin: 11/01/17 09:08 Dose: 40 mg Metoprolol Tartrate (Lopressor) 25 mg PO BID [facility] Last Admin: 11/01/17 09:06 Dose: 25 mg - Labs Labs: 10/31/17 07:30 11/01/17 06:58 PT 14.0 SECONDS (9.4-12.5) H 10/29/17 14:46 INR 1.22 (0.93-1.08) H 10/29/17 14:46 APTT 32.4 Seconds (25.1-36.5) 10/29/17 14:46 - Constitutional Appears: Non-toxic, No Acute Distress - Eye Exam Eye Exam: Normal appearance. absent: Scleral icterus - ENT Exam ENT Exam: Mucous Membranes Moist - Respiratory Exam Respiratory Exam: Clear to Ausculation Bilateral Additional comments: fair air movement; - Cardiovascular Exam Cardiovascular Exam: RRR, +S1, +S2. absent: Gallop - GI/Abdominal Exam GI & Abdominal Exam: Soft. absent: Distended, Tenderness - Extremities Exam Additional comments: no leg edema; - Neurological Exam Neurological Exam: Alert, Awake - Psychiatric Exam Psychiatric exam: Normal Affect, Normal Mood. absent: Agitated - Skin Skin Exam: Warm. absent: Cyanosis Assessment and Plan (1) Acute kidney injury Assessment & Plan: Due to overdiuresis, improved with IVF; susceptible to hemodynamic changes in renal function with diuretics in the setting of likely pulmonary htn; recommend to dose diuretics conservatively as outpatient; counseled on low Na diet; -Will f/u renal artery duplex (but doubt there will be any major findings); -Otherwise stable for d/c home; Status: Acute
--- NOTE | 2017-11-01 11:56 | US ---
PROCEDURE: Bilateral renal artery duplex ultrasound. CLINICAL HISTORY: Renal artery stenosis. Uncontrolled hypertension. Evaluate for renovascular hypertension. PHYSICIAN(S): John Vera M.D. TECHNIQUE: Duplex sonography with color-flow Doppler was used to evaluate the visualized segments of the main renal arteries. The patient was evaluated in a fasting state. Imaging in a supine and decubitus position was performed. Limited evaluation of the arcuate waveforms and resistive indices were performed. FINDINGS: The overall quality of the study is adequate. The kidneys are normal in size, shape, and location. The right kidney measures 10.8cm in length and the left kidney measures 9.8cm in length. No solid renal masses, abnormal calcifications, or hydronephrosis is seen. The main right renal artery is well visualized from the aorta to the hilum. The peak systolic velocity in the right main renal artery is 73 cm/sec. This is consistent with a 0 to 49% stenosis in the main right renal artery. The arcuate waveforms are normal. The resistive index is normal. The main left renal artery is also well seen from its origin to the renal hilum. The peak systolic velocity in the main left renal artery is 85cm/sec. This corresponds to a 0 to 49% stenosis in the main left renal artery. The arcuate waveforms and resistive indices are normal. IMPRESSION: 1. The main renal arteries are well visualized. 2. No sonographically significant stenosis is identified. 3. The kidneys are normal and symmetric in size. There are no solid renal masses, abnormal calcifications or hydronephrosis noted.
--- NOTE | 2017-11-01 14:07 | PN ---
DATE: 10/31/2017 SUBJECTIVE: Dariana Mcgregor seems doing clinically fine. Her creatinine today went up to 2. PHYSICAL EXAMINATION: VITAL SIGNS: Temperature 97.9, heart rate 93, blood pressure 142/81, respirations 20, and 100% saturating. HEAD AND NECK: Normal. No JVD. No thyromegaly. CHEST: Clear bilaterally. CARDIAC: First sound and second sound normal. ABDOMEN: Soft, nontender. EXTREMITIES: No edema. NEUROLOGIC: Normal. LABORATORY DATA: Shows sodium 130, potassium 5.1, chloride 17, BUN 50, creatinine 2, blood sugar 159, calcium 9.2, phosphorus 3.6, magnesium 1.6, and alkaline phosphatase 141. Total protein 7.2, which is normal. The patient has also CBC, which shows white count 9, hemoglobin 9.3, hematocrit 27.7, platelets 284. UA was normal. IMPRESSION AND PLAN: 1. Acute renal injury. We will get a Renal consult with Dr. Workman and we will continue IV fluids and repeat chemistry in the morning, probably due to poor p.o. intake. 2. Acute chronic obstructive pulmonary disease exacerbation. Continue Solu-Medrol 40 IV every 12 hours. Continue doxycycline, seems stable breathing alan. Continue DuoNeb and seems doing well with Brovana. Continue current therapy. 3. Paroxysmal atrial fibrillation. Continue Eliquis, Lopressor 25 mg b.i.d. The patient also should be getting baby aspirin 81 mg for stroke prevention. 4. 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 Continue current therapy. CURRENT MEDICATIONS: Aspirin 81 mg, Brovana Cardizem CD 120, IV fluids, doxycycline, DuoNeb, Eliquis 5 mg b.i.d., Lopressor 25 b.i.d., mag oxide 400 daily, Pepcid 20 b.i.d., Pulmicort, Solu-Medrol IV, and Tylenol p.r.n. Continue current therapy. We will repeat lab in the morning. The patient may benefit from TCU for continuation of her therapy for COPD. We will discuss with the patient. Baltazar Guerra MD
== END 2017-11-01 13:48 | disposition home or self-care (01) | DRG 191 ==
LOC: ED 12:56 → ERH 16:38 → 2RNO 21:56 → 3RSO 10-31 15:41
PROVIDERS: ADMIT Internal Medicine; ATTEND Internal Medicine
DX: J44.1 Chronic obstructive pulmonary disease with (acute) exacerbation (principal); N17.9 Acute kidney failure, unspecified; E87.1 Hypo-osmolality and hyponatremia; I42.9 Cardiomyopathy, unspecified; E87.2 Acidosis; I11.0 Hypertensive heart disease with heart failure; I50.9 Heart failure, unspecified; I48.0 Paroxysmal atrial fibrillation; E87.5 Hyperkalemia; M19.90 Unspecified osteoarthritis, unspecified site; I25.10 Atherosclerotic heart disease of native coronary artery without angina pectoris; E78.5 Hyperlipidemia, unspecified; L30.9 Dermatitis, unspecified; I34.1 Nonrheumatic mitral (valve) prolapse; Z95.3 Presence of xenogenic heart valve; Z79.01 Long term (current) use of anticoagulants

== ENCOUNTER 2017-11-26 12:19 | Inpatient (IN) | payer MEDICARE, OTHER ==
[2017-11-26] MEDS ORDERED: Albuterol-Ipratrop 3 mg / 0.5 (3 ml) UD IH STA (13:03)
--- NOTE | 2017-11-26 13:38 | RAD ---
HISTORY: sob COMPARISON: 10/29/2017 FINDINGS: LUNGS: No consolidation. No gross mass seen Bilateral hyperaeration PLEURA: No significant pleural effusion identified, no pneumothorax apparent. CARDIOVASCULAR: Cardiomegaly. Midline sternotomy. Coronary artery bypass clips The discontinuous this most superior sternal wires are similar status. Valvular prosthesis Pulmonary venous mild congestion possibly chronic OSSEOUS STRUCTURES: Midline sternotomy. VISUALIZED UPPER ABDOMEN: Normal. OTHER FINDINGS: None. IMPRESSION: Cardiomegaly with mild pulmonary venous congestion - probably chronic. Mild acute on chronic pathology possible Midline sternotomy coronary artery bypass clips and valvular prosthesis. Possible epicardial lead
[2017-11-26 13:50] LABS: BASO # 0.04 K/mm3 (0.0-2.0); BASO % 0.3 % (0.0-3.0); EOS # 0.4 (0.0-0.7); EOS % 2.9 % (1.5-5.0); GRAN # 9.57 (1.4-6.5); GRAN % 72.6 % (50.0-68.0); LYMPH # 2.4 (1.2-3.4); LYMPH % 18.4 % (22.0-35.0); MEAN CELL VOLUME 92.8 fl (80.0-105.0); MEAN CORPUSCULAR HGB CONC 32.4 g/dl (31.0-37.0); MEAN PLATELET VOLUME 9.8 fl (7.0-11.0); MONO # 0.8 (0.1-0.6); MONO % 5.8 % (1.0-6.0); RBC 2.23 10^6/uL (3.5-6.1); RED CELL DISTRIBUTION WIDTH 15.9 % (11.5-14.5); WHITE BLOOD COUNT 13.2 10^3/ul (4.5-11.0)
[2017-11-26 14:00] LABS: ALB/GLOB RATIO 1.3 (1.1-1.8); ALBUMIN 3.7 g/dL (3.0-4.8); ALT/SGPT 28 U/L (7-56); AST/SGOT 27 U/L (14-36); BLOOD UREA NITROGEN 41 mg/dL (7-21); GFR AFRICAN-AMERICAN > 60; GFR NON-AFRICAN AMERICAN > 60; INR 1.03 (0.93-1.08); PROTHROMBIN TIME 11.7 SECONDS (9.4-12.5)
[2017-11-26 14:03] LABS: HEMOGLOBIN 6.7 g/dL (12.0-16.0)
[2017-11-26 14:10] LABS: TROPONIN I < 0.01 ng/mL
[2017-11-26] MEDS ORDERED: Sodium Chloride 0.9% 500 ML IV STA (14:37)
--- NOTE | 2017-11-26 15:09 | ED PDOC ---
Arrival/HPI - General Chief Complaint: Shortness Of Breath Time Seen by Provider: 11/26/17 12:22 Historian: Patient - History of Present Illness Narrative History of Present Illness (Text): 11/26/17 15:01 Patient is a 62 yo female with past medical history of COPD, mitral valve disease, paroxsymal atrial fibrillation on Eliquis, presents to the Emergency Department today complaining of shortness of breath with exertion over the past week, worse over the past three days. Patient states that when she stands and exerts herself she feels more short of breath. States that she has no chest pain currently. Reports having dark stools for the past two weeks. Denies abdominal pain. At rest she denies dizziness or lightheadedness, denies palpitations. Symptom Onset: Gradual Context: Standing, Exertion Past Medical History - Infectious Disease Hx of Infectious Diseases: None - Tetanus Immunization Tetanus Immunization: Unknown - Reproductive Menopause: Yes - Past Medical History Past Medical History: No Previous - Cardiac Hx Cardiac Disorders: Yes Hx Hypertension: Yes Hx Pacemaker: No Other/Comment: Mitral Valve Replacement 04/23 - Pulmonary Hx Respiratory Disorders: Yes Hx Asthma: Yes Hx Chronic Obstructive Pulmonary Disease (COPD): Yes - Neurological Hx Neurological Disorder: Yes Hx Dizziness: Yes Hx Migraine: Yes - HEENT Hx HEENT Disorder: No - Renal Hx Renal Disorder: No - Endocrine/Metabolic Hx Endocrine Disorders: No - Hematological/Oncological Hx Blood Disorders: No - Integumentary Hx Dermatological Disorder: No - Musculoskeletal/Rheumatological Hx Musculoskeletal Disorders: No Hx Falls: No - Gastrointestinal Hx Gastrointestinal Disorders: No - Genitourinary/Gynecological Hx Genitourinary Disorders: No - Psychiatric Hx Psychophysiologic Disorder: No Hx Emotional Abuse: No Hx Physical Abuse: No Hx Substance Use: No - Surgical History Other/Comment: Mitral Valve Replacement - Anesthesia Hx Anesthesia: Yes Hx Anesthesia Reactions: No Hx Malignant Hyperthermia: No - Suicidal Assessment Feels Threatened In Home Enviroment: No Family/Social History Family/Social History: Unknown Family HX Smoking Status: Never Smoked Hx Alcohol Use: No (social) Amount per day: 6 Hx Substance Use: No Hx Substance Use Treatment: No Allergies/Home Meds Allergies/Adverse Reactions: Allergies cinnamon Allergy (Intermediate, Verified 10/29/17 13:23) ANAPHYLAXIS Home Medications: Home Meds Medication Instructions Recorded Confirmed Simvastatin [Zocor] 20 mg PO HS 08/20/17 11/26/17 Budesonide/Formoterol Fumarate 1 aer IH DAILY 11/26/17 11/26/17 [Symbicort] Cholecalciferol [Vitamin D 1000 IU] 50,000 iu PO QWK 11/26/17 11/26/17 Diltiazem HCl [Cartia Xt] 120 mg PO DAILY 11/26/17 11/26/17 Famotidine [Pepcid] 40 mg PO BID 11/26/17 11/26/17 Ferrous Sulfate [Feosol] 325 mg PO BID 11/26/17 11/26/17 Furosemide [Lasix] 20 mg PO DAILY 11/26/17 11/26/17 Loratadine [Claritin] 10 mg PO DAILY 11/26/17 11/26/17 Review of Systems - Review of Systems Constitutional: Fatigue. absent: Fevers Eyes: absent: Vision Changes ENT: absent: Hearing Changes Respiratory: SOB. absent: Wheezing Cardiovascular: AVELAR. absent: Chest Pain, Palpitations, Edema, Calf Pain, Orthopnea Gastrointestinal: Other (dark stools). absent: Abdominal Pain, Diarrhea, Nausea , Vomiting Genitourinary Female: absent: Dysuria, Hematuria Musculoskeletal: absent: Back Pain Skin: absent: Rash Neurological: Dizziness. absent: Headache, Focal Weakness Endocrine: absent: Polyuria Hemo/Lymphatic: absent: Easy Bleeding, Easy Bruising Psychiatric: absent: Depression Physical Exam Vital Signs Reviewed: Yes Vital Signs Temp Pulse Resp BP Pulse Ox 11/26/17 15:16 116 H 14 105/45 L 98 11/26/17 12:36 98.6 F 105 H 16 114/68 97 Temperature: Afebrile Blood Pressure: Hypotensive Pulse: Tachycardic Appearance: Positive for: Ill-Appearing Pain Distress: Mild Mental Status: Positive for: Alert and Oriented X 3 - Systems Exam Head: Present: Atraumatic Pupils: Present: PERRL Extroacular Muscles: Present: EOMI Mouth: Present: Moist Mucous Membranes Pharnyx: No: ERYTHEMA Nose (Internal): Present: Normal Inspection, No Active Bleeding Neck: Present: Normal Range of Motion. No: Meningeal Signs Respiratory/Chest: Present: Wheezes Cardiovascular: Present: Murmurs, Tachycardic Abdomen: No: Tenderness, Distention, Peritoneal Signs Rectal: Present: Occult Blood, Melena. No: Rectal Tenderness, Gross Blood Genitourinary/Pelvic Exam: No: Vaginal Bleeding Back: No: CVA Tenderness Upper Extremity: No: Cyanosis, Edema Lower Extremity: No: Edema, CALF TENDERNESS Neurological: Present: Motor Func Grossly Intact, Normal Sensory Function Skin: Present: Warm Psychiatric: Present: Alert, Normal Insight, Normal Concentration Medical Decision Making ED Course and Treatment: Patient is a 62 yo female on eliquis for paroxysmal atrial fibrillation, presents with shortness of breath with exertion worse over past several days. On exam she is tachycardic, hypotensive. IV line established. Hgb found to be 6. Of concern, she is noted to have melena on exam and is reportedly taking a beta jasmyn as well. On re-exam she remains tachycardic but is alert, oriented, exhibits no pain or respiratory distress. IV fluids ordered. Blood transfusion ordered. Risks/benefits reviewed with patient and she has signed consent. She remains alert and oriented and comfortable. Abnormal labs and exam reviewed with patient. Protonix ordered. After consultations, FFP also ordered as patient hypotensive, tachycardic with melena. Patient evaluated by consular officer in the Emergency department and accepted to ICU. Dr. Guerra updated with treatment plan. - Critical Care Critical Care Minutes: 45 minutes - Lab Interpretations Lab Results: 11/26/17 13:40 11/26/17 13:40 Lab Results 11/26/17 13:40: PT 11.7, INR 1.03, APTT 30.0 11/26/17 13:40: Sodium 138, Potassium 4.6, Chloride 105, Carbon Dioxide 20 L, Anion Gap 18, BUN 41 H, Creatinine 0.9, Est GFR ( Amer) > 60, Est GFR ( Non-Af Amer) > 60, Random Glucose 118 H, Calcium 9.0, Total Bilirubin 0.3, AST 27, ALT 28, Alkaline Phosphatase 94, Lactate Dehydrogenase 709 H, Total Creatine Kinase 29 L, Troponin I < 0.01 D, Total Protein 6.5, Albumin 3.7, Globulin 2.8, Albumin/Globulin Ratio 1.3 11/26/17 13:40: WBC 13.2 H D, RBC 2.23 L, Hgb 6.7 L* D, Hct 20.7 L*, MCV 92.8 D , MCH 30.0, MCHC 32.4, RDW 15.9 H, Plt Count 236, MPV 9.8, Gran % 72.6 H, Lymph % (Auto) 18.4 L, [place] % (Auto) 5.8, Eos % (Auto) 2.9, Baso % (Auto) 0.3, Gran # 9.57 H, Lymph # (Auto) 2.4, [place] # (Auto) 0.8 H, Eos # (Auto) 0.4, Baso # (Auto ) 0.04 - RAD Interpretation Radiology Orders: 11/26/17 13:00 CHEST PORTABLE [RAD] Stat - EKG Interpretation EKG Interpretation (Text): EKG at 12:30 sinus tachycardia rate of 107 with moderate voltage criteria for lvh EKG at 14:48 sinus tachycardia rate of 113 with premature atrial complexes, nonspecific st abnormality Interpreted by ED Physician: Yes Type: 12 lead EKG - Medication Orders Current Medication Orders: Albuterol/Ipratropium (Duoneb 3 Mg/0.5 Mg (3 Ml) Ud) 3 ml IH [id number] PRN PRN Reason: Shortness of Breath Pantoprazole Sodium (Protonix 40mg Ivpb) 40 mg in 100 mls @ 20 mls/hr IVPB .Q5H [facility] Ondansetron HCl (Zofran Inj) 4 mg IVP Q6H PRN PRN Reason: Nausea/Vomiting Discontinued Medications Albuterol/Ipratropium (Duoneb 3 Mg/0.5 Mg (3 Ml) Ud) 3 ml IH STAT STA Stop: 11/26/17 13:04 Last Admin: 11/26/17 13:28 Dose: 3 ml Sodium Chloride (Sodium Chloride 0.9%) 500 mls @ 1,000 mls/hr IV .Q30M STA Stop: 11/26/17 15:06 Pantoprazole Sodium (Protonix Inj) 40 mg IVP ONCE STA Stop: 11/26/17 14:37 Disposition/Present on Arrival - Present on Arrival Any Indicators Present on Arrival: No History of DVT/PE: No History of Uncontrolled Diabetes: No Urinary Catheter: No History of Decub. Ulcer: No History Surgical Site Infection Following: None - Disposition Have Diagnosis and Disposition been Completed?: Yes Diagnosis: GI bleed, Anemia, Sinus tachycardia, COPD exacerbation Disposition: HOSPITALIZED Disposition Time: 14:30 Patient Plan: Admission, ICU Patient Problems: Current Active Problems Problem Status Onset Anemia Acute COPD exacerbation Acute GI bleed Acute Sinus tachycardia Acute Condition: CRITICAL
[2017-11-26] MEDS ORDERED: Albuterol-Ipratrop 3 mg / 0.5 (3 ml) UD IH PRN (15:35)
--- NOTE | 2017-11-26 15:52 | CP.PCM.CON ---
History of Present Illness - History of Present Illness History of Present Illness: MICU Consult Note HPI Patient is 62yo male with PMHx of PAF on Eliquis, HTN, COPD, epistaxis, presents with SOB for 4-5 days. Pt notes she has chronic SOB, now worsening over the last few days. Pt also notes diarrhea, with dark stools,without blood or mucus. Denies N/V, abd pain, NSAID abuse, recent travel, fever, chills, cough. Pt also endorses chest discomfort. In the ER patient noted to be anemic, HH 6.7, to receive 2u PRBC, 2u FFP Last Eliquis dose yesterday morning. PMHx as above PSHx as above Meds as per EMR ROS as per HPI FHx NC Review of Systems - Review of Systems Review of Systems: as per HPI Past Patient History - Infectious Disease Hx of Infectious Diseases: None - Tetanus Immunizations Tetanus Immunization: Unknown - Past Social History Smoking Status: Never Smoked - CARDIAC Hx Cardiac Disorders: Yes Hx Hypertension: Yes Hx Pacemaker: No Other/Comment: Mitral Valve Replacement 04/23 - PULMONARY Hx Respiratory Disorders: Yes Hx Asthma: Yes Hx Chronic Obstructive Pulmonary Disease (COPD): Yes - NEUROLOGICAL Hx Neurological Disorder: Yes Hx Dizziness: Yes Hx Migraine: Yes - HEENT Hx HEENT Problems: No - RENAL Hx Chronic Kidney Disease: No - ENDOCRINE/METABOLIC Hx Endocrine Disorders: No - HEMATOLOGICAL/ONCOLOGICAL Hx Blood Disorders: No - INTEGUMENTARY Hx Dermatological Problems: No - MUSCULOSKELETAL/RHEUMATOLOGICAL Hx Musculoskeletal Disorders: No Hx Falls: No - GASTROINTESTINAL Hx Gastrointestinal Disorders: No - GENITOURINARY/GYNECOLOGICAL Hx Genitourinary Disorders: No - PSYCHIATRIC Hx Psychophysiologic Disorder: No Hx Emotional Abuse: No Hx Physical Abuse: No Hx Substance Use: No - SURGICAL HISTORY Other/Comment: Mitral Valve Replacement - ANESTHESIA Hx Anesthesia: Yes Hx Anesthesia Reactions: No Hx Malignant Hyperthermia: No Meds Allergies/Adverse Reactions: Allergies Allergy/AdvReac Type Severity Reaction Status Date / Time cinnamon Allergy Intermediate ANAPHYLAXIS Verified 10/29/17 13:23 Physical Exam - Constitutional Appears: Non-toxic, No Acute Distress - Head Exam Head Exam: NORMAL INSPECTION - Eye Exam Eye Exam: Normal appearance - ENT Exam ENT Exam: Mucous Membranes Moist - Neck Exam Neck exam: Positive for: Full Rom - Respiratory Exam Respiratory Exam: Clear to Auscultation Bilateral, NORMAL BREATHING PATTERN - Cardiovascular Exam Cardiovascular Exam: REGULAR RHYTHM, +S1, +S2 - GI/Abdominal Exam GI & Abdominal Exam: Normal Bowel Sounds, Soft - Extremities Exam Extremities exam: Positive for: full ROM, normal inspection - Neurological Exam Neurological exam: Alert, CN II-XII Intact, Oriented x3 Results - Vital Signs Recent Vital Signs: Last Vital Signs Temp 98.6 F 11/26/17 12:36 Pulse 116 H 11/26/17 15:16 Resp 14 11/26/17 15:16 BP 105/45 L 11/26/17 15:16 Pulse Ox 98 11/26/17 15:16 - Labs Result Diagrams: 11/26/17 13:40 11/26/17 13:40 Labs: Laboratory Results - last 24 hr 11/26/17 15:04 Crossmatch See Detail BBK History Checked Patient has bt Assessment & Plan - Assessment and Plan (Free Text) Assessment: 62yo female a/w GIB, Anemia, SOB GIB Anemia SOB PAF on Eliquis HTN Tachycardia Guiac Positive - currently afebrile, HD stable, tachycardic Sinus tach 110, benign abd exam, + guiac Recommend: - supp o2 as needed - duonebs PRN - hold BP meds - Panculture - hold Eliquis - 2u PRBC, 2u FFP - cardiology eval - GI eval - PPI drip - NPO - maintain 2 large bore PIVs - q6hr CBC - CT abd pelvis - GI ppx - DVT ppx, SCDs - monitor in MICU critical care time 30 minutes
--- NOTE | 2017-11-26 16:09 | CT ---
PROCEDURE: CT Abdomen and Pelvis without intravenous contrast HISTORY: gi bleed COMPARISON: None. TECHNIQUE: Without contrast.. Contrast dose: Radiation dose: Total exam DLP = 606 mGy-cm. This CT exam was performed using one or more of the following dose reduction techniques: Automated exposure control, adjustment of the mA and/or kV according to patient size, and/or use of iterative reconstruction technique. FINDINGS: LOWER THORAX: Chronic linear scarring is seen at the right lung base. There is also small focal area of consolidation which is also unchanged. LIVER: Unremarkable. No gross lesion or ductal dilatation. GALLBLADDER AND BILE DUCTS: Gallbladder removed PANCREAS: Unremarkable. No gross lesion or ductal dilatation. SPLEEN: Unremarkable. ADRENALS: Unremarkable. No mass. KIDNEYS AND URETERS: Unremarkable. No hydronephrosis. No solid mass. VASCULATURE: Unremarkable. No aortic aneurysm. BOWEL: Unremarkable. No obstruction. No gross mural thickening. APPENDIX: Unremarkable. Normal appendix. PERITONEUM: Unremarkable. No free fluid. No free air. LYMPH NODES: Unremarkable. No enlarged lymph nodes. BLADDER: Unremarkable. REPRODUCTIVE: Unremarkable. BONES: No acute fracture. OTHER FINDINGS: None. IMPRESSION: Negative study
[2017-11-26] MEDS: Pantoprazole 40mg/100mL NS 40 MG/100 ML BAG IVPB SCH ×2 (16:39→21:00)
[2017-11-26 22:06] VITALS: BMI 25.3
[2017-11-26] MEDS ORDERED: Pneumococcal 23-Valent Vaccine IM ONE (22:06)
[2017-11-26 23:00] LABS: HEMOGLOBIN 8.6 g/dL (12.0-16.0); MEAN CELL VOLUME 87.8 fl (80.0-105.0); MEAN CORPUSCULAR HEMOGLOBIN 29.9 pg (25.0-35.0); MEAN PLATELET VOLUME 9.7 fl (7.0-11.0); RBC 2.88 10^6/uL (3.5-6.1); WHITE BLOOD COUNT 12.6 10^3/ul (4.5-11.0)
[2017-11-26 23:18] LABS: INR 1.01 (0.93-1.08); PROTHROMBIN TIME 11.5 SECONDS (9.4-12.5)
[2017-11-26 23:19] LABS: PARTIAL THROMBOPLASTIN TIME 29.8 Seconds (25.1-36.5)
[2017-11-27 07:04] LABS: BASO # 0.03 K/mm3 (0.0-2.0); BASO % 0.3 % (0.0-3.0); EOS # 0.3 (0.0-0.7); EOS % 3.4 % (1.5-5.0); GRAN # 6.09 (1.4-6.5); GRAN % 66.4 % (50.0-68.0); HEMOGLOBIN 7.8 g/dL (12.0-16.0); LYMPH # 1.9 (1.2-3.4); LYMPH % 21.2 % (22.0-35.0); MEAN CELL VOLUME 86.8 fl (80.0-105.0); MEAN CORPUSCULAR HEMOGLOBIN 29.3 pg (25.0-35.0); MEAN CORPUSCULAR HGB CONC 33.8 g/dl (31.0-37.0); MEAN PLATELET VOLUME 9.9 fl (7.0-11.0); MONO # 0.8 (0.1-0.6); MONO % 8.7 % (1.0-6.0); RBC 2.66 10^6/uL (3.5-6.1); RED CELL DISTRIBUTION WIDTH 16.7 % (11.5-14.5); WHITE BLOOD COUNT 9.2 10^3/ul (4.5-11.0)
[2017-11-27 07:18] LABS: INR 0.98 (0.93-1.08); PARTIAL THROMBOPLASTIN TIME 28.2 Seconds (25.1-36.5); PROTHROMBIN TIME 11.3 SECONDS (9.4-12.5)
[2017-11-27] MEDS: Pantoprazole 40mg/100mL NS 40 MG/100 ML BAG IVPB SCH ×4 (07:22→21:30)
[2017-11-27 07:57] LABS: ALB/GLOB RATIO 1.4 (1.1-1.8); ALBUMIN 3.6 g/dL (3.0-4.8); ALT/SGPT 18 U/L (7-56); AST/SGOT 28 U/L (14-36); BLOOD UREA NITROGEN 24 mg/dL (7-21); CALCIUM 8.8 mg/dL (8.4-10.5); GFR AFRICAN-AMERICAN > 60; GFR NON-AFRICAN AMERICAN 56
--- NOTE | 2017-11-27 08:13 | CARD ---
APPROVED REPORT EKG Measurement Heart [id number] [id number] <Conclusion> Sinus tachycardia Moderate voltage criteria for LVH, may be normal variant Borderline ECG
--- NOTE | 2017-11-27 09:06 | CP.CCUPN ---
<Juan Feliciano - Last Filed: 11/27/17 10:26> CCU Subjective - Physician Review Subjective (Free Text): 11/27/17 09:06 Patient seen and examined at bedside in ICU. Reports still some weakness and lightheadedness, but otherwise feeling much better. No shortness of breath since admission and transfusion. Denies chest pain, shortness of breath, wheezing, room-spinning sensation at rest, syncope/near-syncope. As per nursing , no acute events overnight, but 2 small tarry BM, and Hgb today decreased from 8.6 to 7.8. Critical Care Time Spent (in minutes): 35 CCU Objective - Vital Signs / Intake & Output Vital Signs (Last 4 hours): Vital Signs Pulse 11/27/17 06:00 108 H Intake and Output (Last 8hrs): Intake & Output 11/26/17 11/27/17 11/27/17 22:59 06:59 14:59 Intake Total 520 Balance 520 Weight 73.482 kg Intake: IV 120 Right Forearm 120 Oral 60 Blood Product 325 Red Blood Cells Cpd As1 325 Lr Unit [id number] Other 15 Red Blood Cells Cpd As1 15 Lr Unit [id number] Other: Voiding Method Toilet # Voids Urine, Voided 0 # Bowel Movements 0 - Physical Exam Head: Positive for: Atraumatic, Normocephalic Pupils: Positive for: PERRL. Negative for: Non-Reactive, Pinpoint Extroacular Muscles: Positive for: EOMI. Negative for: Gaze Palsy, Entrapment Conjunctiva: Positive for: Other (mild conjunctival pallor). Negative for: Injected, Icteric Mouth: Positive for: Moist Mucous Membranes, Normal Lips, Normal Tounge, Normal Teeth. Negative for: Dry, Drooling Pharnyx: Positive for: Normal. Negative for: ERYTHEMA, EXUDATE, TONSILS ENLARGED, Uvular Deviation, Muffled/Hoarse Voice Nose (External): Positive for: Atraumatic. Negative for: Abrasion, Laceration Nose (Internal): Positive for: Normal Inspection, No Active Bleeding. Negative for: Epistaxis Neck: Positive for: Normal Range of Motion, Trachea Midline. Negative for: JVD Respiratory/Chest: Positive for: Clear to Auscultation, Good Air Exchange. Negative for: Respiratory Distress, Accessory Muscle Use, Wheezes Cardiovascular: Positive for: Murmurs, Normal S1, S2, Tachycardic (tachy but regular rhythm). Negative for: Irregular Rhythm, Bradycardic Abdomen: Positive for: Normal Bowel Sounds. Negative for: Tenderness, Distention, Peritoneal Signs Genitourinary/Pelvic Exam: Negative for: Vaginal Bleeding Back: Negative for: CVA Tenderness Upper Extremity: Positive for: Normal Inspection, Normal ROM, NORMAL PULSES. Negative for: Cyanosis, Edema, Tenderness, Swelling, Erythema, Deformity Lower Extremity: Positive for: Normal Inspection, NORMAL PULSES, Normal ROM. Negative for: Edema, CALF TENDERNESS, Tenderness, Swelling, Erythema, Deformity Neurological: Positive for: GCS=15, Speech Normal, Motor Func Grossly Intact, Normal Sensory Function, Other (moving all extremities spontaneously) Skin: Positive for: Warm, Dry, Normal Color. Negative for: Rashes Psychiatric: Positive for: Alert, Oriented x 3 (x4 (self, location, year, president)), Normal Insight, Normal Concentration, Normal Affect, Normal Mood. Negative for: Anxious, Agitated, Lethargic - Medications Active Medications: Active Medications Generic Name Dose Route Start Last Admin Trade Name Freq PRN Reason Stop Dose Admin Albuterol/Ipratropium 3 ml 11/26/17 15:35 Duoneb 3 Mg/0.5 Mg (3 Ml) Ud IH [id number] PRN Shortness of Breath Diphenhydramine HCl 25 mg 11/26/17 17:49 11/27/17 00:43 Benadryl PO 25 mg Q6 PRN Administration Allergy symptoms Pantoprazole Sodium 40 mg in 100 mls @ 20 mls/hr 11/26/17 15:30 11/27/17 07: 22 Protonix 40mg Ivpb IVPB 20 mls/hr .Q5H GUALBERTO Administration Ondansetron HCl 4 mg 11/26/17 15:29 Zofran Inj IVP Q6H PRN Nausea/Vomiting - Patient Studies Lab Studies: Lab Studies 11/27/17 11/27/17 11/27/17 Range/Units 06:00 06:00 06:00 WBC 9.2 D (4.5-11.0) 10^3/ul RBC 2.66 L (3.5-6.1) 10^6/uL Hgb 7.8 L (12.0-16.0) g/dL Hct 23.1 L (36.0-48.0) % MCV 86.8 (80.0-105.0) fl MCH 29.3 (25.0-35.0) pg MCHC 33.8 (31.0-37.0) g/dl RDW 16.7 H (11.5-14.5) % Plt Count 182 (120.0-450.0) 10^3/uL MPV 9.9 (7.0-11.0) fl Gran % 66.4 (50.0-68.0) % Lymph % (Auto) 21.2 L (22.0-35.0) % Clayton % (Auto) 8.7 H (1.0-6.0) % Eos % (Auto) 3.4 (1.5-5.0) % Baso % (Auto) 0.3 (0.0-3.0) % Gran # 6.09 (1.4-6.5) Lymph # (Auto) 1.9 (1.2-3.4) Clayton # (Auto) 0.8 H (0.1-0.6) Eos # (Auto) 0.3 (0.0-0.7) Baso # (Auto) 0.03 (0.0-2.0) K/mm3 PT 11.3 (9.4-12.5) SECONDS INR 0.98 (0.93-1.08) APTT 28.2 (25.1-36.5) Seconds Sodium 142 (132-148) mmol/L Potassium 4.2 (3.6-5.0) mmol/L Chloride 107 (98-107) mmol/L Carbon Dioxide 24 (21-33) mmol/L Anion Gap 14 (10-20) BUN 24 H (7-21) mg/dL Creatinine 1.0 (0.7-1.2) mg/dl Est GFR ( Amer) > 60 Est GFR (Non-Af Amer) 56 Random Glucose 110 (70-110) mg/dL Calcium 8.8 (8.4-10.5) mg/dL Phosphorus 4.1 (2.5-4.5) mg/dL Magnesium 2.1 (1.7-2.2) mg/dL Total Bilirubin 0.3 (0.2-1.3) mg/dL AST 28 (14-36) U/L ALT 18 (7-56) U/L Alkaline Phosphatase 89 (38-126) U/L Total Protein 6.2 (5.8-8.3) g/dL Albumin 3.6 (3.0-4.8) g/dL Globulin 2.6 gm/dL Albumin/Globulin Ratio 1.4 (1.1-1.8) Blood Type Antibody Screen Crossmatch BBK History Checked 11/26/17 11/26/17 11/26/17 Range/Units 22:55 22:55 15:04 WBC 12.6 H (4.5-11.0) 10^3/ul RBC 2.88 L (3.5-6.1) 10^6/uL Hgb 8.6 L (12.0-16.0) g/dL Hct 25.3 L (36.0-48.0) % MCV 87.8 D (80.0-105.0) fl MCH 29.9 (25.0-35.0) pg MCHC 34.0 (31.0-37.0) g/dl RDW 16.0 H (11.5-14.5) % Plt Count 187 (120.0-450.0) 10^3/uL MPV 9.7 (7.0-11.0) fl Gran % (50.0-68.0) % Lymph % (Auto) (22.0-35.0) % Clayton % (Auto) (1.0-6.0) % Eos % (Auto) (1.5-5.0) % Baso % (Auto) (0.0-3.0) % Gran # (1.4-6.5) Lymph # (Auto) (1.2-3.4) Clayton # (Auto) (0.1-0.6) Eos # (Auto) (0.0-0.7) Baso # (Auto) (0.0-2.0) K/mm3 PT 11.5 (9.4-12.5) SECONDS INR 1.01 (0.93-1.08) APTT 29.8 (25.1-36.5) Seconds Sodium (132-148) mmol/L Potassium (3.6-5.0) mmol/L Chloride (98-107) mmol/L Carbon Dioxide (21-33) mmol/L Anion Gap (10-20) BUN (7-21) mg/dL Creatinine (0.7-1.2) mg/dl Est GFR ( Amer) Est GFR (Non-Af Amer) Random Glucose (70-110) mg/dL Calcium (8.4-10.5) mg/dL Phosphorus (2.5-4.5) mg/dL Magnesium (1.7-2.2) mg/dL Total Bilirubin (0.2-1.3) mg/dL AST (14-36) U/L ALT (7-56) U/L Alkaline Phosphatase (38-126) U/L Total Protein (5.8-8.3) g/dL Albumin (3.0-4.8) g/dL Globulin gm/dL Albumin/Globulin Ratio (1.1-1.8) Blood Type O POSITIVE Antibody Screen Negative Crossmatch See Detail BBK History Checked Patient has bt Laboratory Results - last 24 hr 11/26/17 11/26/17 11/26/17 15:04 22:55 22:55 WBC 12.6 H RBC 2.88 L Hgb 8.6 L Hct 25.3 L MCV 87.8 D MCH 29.9 MCHC 34.0 RDW 16.0 H Plt Count 187 MPV 9.7 Gran % Lymph % (Auto) Clayton % (Auto) Eos % (Auto) Baso % (Auto) Gran # Lymph # (Auto) Clayton # (Auto) Eos # (Auto) Baso # (Auto) PT 11.5 INR 1.01 APTT 29.8 Sodium Potassium Chloride Carbon Dioxide Anion Gap BUN Creatinine Est GFR ( Amer) Est GFR (Non-Af Amer) Random Glucose Calcium Phosphorus Magnesium Total Bilirubin AST ALT Alkaline Phosphatase Total Protein Albumin Globulin Albumin/Globulin Ratio Blood Type O POSITIVE Antibody Screen Negative Crossmatch See Detail BBK History Checked Patient has bt 11/27/17 11/27/17 11/27/17 06:00 06:00 06:00 WBC 9.2 D RBC 2.66 L Hgb 7.8 L Hct 23.1 L MCV 86.8 MCH 29.3 MCHC 33.8 RDW 16.7 H Plt Count 182 MPV 9.9 Gran % 66.4 Lymph % (Auto) 21.2 L Clayton % (Auto) 8.7 H Eos % (Auto) 3.4 Baso % (Auto) 0.3 Gran # 6.09 Lymph # (Auto) 1.9 Clayton # (Auto) 0.8 H Eos # (Auto) 0.3 Baso # (Auto) 0.03 PT 11.3 INR 0.98 APTT 28.2 Sodium 142 Potassium 4.2 Chloride 107 Carbon Dioxide 24 Anion Gap 14 BUN 24 H Creatinine 1.0 Est GFR ( Amer) > 60 Est GFR (Non-Af Amer) 56 Random Glucose 110 Calcium 8.8 Phosphorus 4.1 Magnesium 2.1 Total Bilirubin 0.3 AST 28 ALT 18 Alkaline Phosphatase 89 Total Protein 6.2 Albumin 3.6 Globulin 2.6 Albumin/Globulin Ratio 1.4 Blood Type Antibody Screen Crossmatch BBK History Checked EKG/Cardiology Studies: Cardiology / EKG Studies 11/26/17 14:48 EKG [ELECTROCARDIOGRAM] Stat Comment: Reason For Exam: SOB Fingerstick Blood Sugar Results: 114 Review of Systems - Review of Systems Review of Systems: as per [facility] Critical Care Progress Note - Nutrition Nutrition: Nutrition Category Date Time Status NPO Diet [DIET] Diets 11/26/17 Dinner Ordered Assessment/Plan - Assessment and Plan (Free Text) Assessment: This is a 62 yo AA F with PMH of severe MR s/p mitral valve bioprosthesis, paroxysmal AFib on Eliquis, non-obstructing CAD, and COPD. She presented with progressively worsening shortness of breath and 2 weeks tarry stools/diarrhea, and was admitted to ICU for symptomatic anemia (Hgb 6.7) suspected to be 2/2 GI bleed. Plan: Neuro: -AAOx3, moving all extremities spontaneously -maintain normothermia -weakness likely 2/2 anemia, should be evaluated by PT/OT after Hgb stabilized and transferred to floors Cardio: -persistently tachycardic to 110's, but hemodynamically stable, maintaining MAP > 65 and SBP 120's-150's -cardiac meds held overnight due to NPO for GI bleed, will restart home Lopressor and Diltiazem, continue to hold Lasix/Aspirin/Eliquis -s/p 2 units pRBCs and FFP each, pending 3rd unit of pRBCs due to overnight Hgb decrease from 8.6 (post-transfusion) to 7.8 (this AM) -holding AC for AFib due to suspected GI bleed -Cardio consulted, appreciate their recs Pulm: -resume home Singulair -continue PRN Duonebs given hx COPD -Supplemental O2 as needed, satting well on 2L NC currently GI: -NPO except meds given suspected GI bleed -continue Protonix drip -GI following, appreciate all recs; pending EGD tomorrow after off Eliquis for 48 hours, if starts actively bleeding can do tonight Renal: -monitor and replete electrolytes as needed -monitor I's and O's -BUN improved to 24 from 41, Cr stable at 1.0 (was 0.9), continue to monitor Heme -coags wnl again today -s/p 2 units FFP, 2 units pRBCs, receiving 3rd unit pRBCs now -will recheck CBC after 3rd unit to confirm appropriate Hgb response to transfusion ID: -afebrile, no leukocytosis -no indication for abx at this time Dispo: ICU, pending EGD tomorrow, tonight if emergently needed, pending CBC recheck after 3rd unit pRBCs FEN: NPO pending scope, possible GI bleed Access: Peripheral IV x3 Consults: GI, Cardio Ppx: Protonix drip covers GI, SCDs for DVT (avoid AC in setting of suspected GI bleed) Patient seen, reviewed, and discussed with attending, Dr. Camarena <Rinku Camarena - Last Filed: 11/27/17 12:02> CCU Objective - Vital Signs / Intake & Output Vital Signs (Last 4 hours): Vital Signs Temp Pulse Resp BP 11/27/17 09:26 98.7 F 108 H 16 135/75 11/27/17 09:06 98.6 F 102 H 16 131/70 Intake and Output (Last 8hrs): Intake & Output 11/26/17 11/27/17 11/27/17 22:59 06:59 14:59 Intake Total 520 0 Balance 520 0 Weight 162 lb Intake: IV 120 Right Forearm 120 Oral 60 Blood Product 325 0 Red Blood Cells Cpd As1 0 Lr Unit [id number] Red Blood Cells Cpd As1 325 Lr Unit [id number] Other 15 Red Blood Cells Cpd As1 15 Lr Unit [id number] Other: Voiding Method Toilet # Voids Urine, Voided 0 # Bowel Movements 0 - Medications Active Medications: Active Medications Generic Name Dose Route Start Last Admin Trade Name Freq PRN Reason Stop Dose Admin Albuterol/Ipratropium 3 ml 11/26/17 15:35 Duoneb 3 Mg/0.5 Mg (3 Ml) Ud IH [id number] PRN Shortness of Breath Diltiazem HCl 120 mg 11/27/17 10:00 Cardizem Cd PO DAILY GUALBERTO Diphenhydramine HCl 25 mg 11/26/17 17:49 11/27/17 00:43 Benadryl PO 25 mg Q6 PRN Administration Allergy symptoms Pantoprazole Sodium 40 mg in 100 mls @ 20 mls/hr 11/26/17 15:30 11/27/17 07: 22 Protonix 40mg Ivpb IVPB 20 mls/hr .Q5H GUALBERTO Administration Metoprolol Tartrate 25 mg 11/27/17 10:00 Lopressor PO BID GUALBERTO Metoprolol Tartrate 5 mg 11/27/17 09:45 Lopressor IV 11/28/17 23:59 Q6H GUALBERTO Ondansetron HCl 4 mg 11/26/17 15:29 Zofran Inj IVP Q6H PRN Nausea/Vomiting - Patient Studies Lab Studies: Lab Studies 11/27/17 11/27/17 11/27/17 Range/Units 06:00 06:00 06:00 WBC 9.2 D (4.5-11.0) 10^3/ul RBC 2.66 L (3.5-6.1) 10^6/uL Hgb 7.8 L (12.0-16.0) g/dL Hct 23.1 L (36.0-48.0) % MCV 86.8 (80.0-105.0) fl MCH 29.3 (25.0-35.0) pg MCHC 33.8 (31.0-37.0) g/dl RDW 16.7 H (11.5-14.5) % Plt Count 182 (120.0-450.0) 10^3/uL MPV 9.9 (7.0-11.0) fl Gran % 66.4 (50.0-68.0) % Lymph % (Auto) 21.2 L (22.0-35.0) % Clayton % (Auto) 8.7 H (1.0-6.0) % Eos % (Auto) 3.4 (1.5-5.0) % Baso % (Auto) 0.3 (0.0-3.0) % Gran # 6.09 (1.4-6.5) Lymph # (Auto) 1.9 (1.2-3.4) Clayton # (Auto) 0.8 H (0.1-0.6) Eos # (Auto) 0.3 (0.0-0.7) Baso # (Auto) 0.03 (0.0-2.0) K/mm3 PT 11.3 (9.4-12.5) SECONDS INR 0.98 (0.93-1.08) APTT 28.2 (25.1-36.5) Seconds Sodium (132-148) mmol/L Potassium (3.6-5.0) mmol/L Chloride (98-107) mmol/L Carbon Dioxide (21-33) mmol/L Anion Gap (10-20) BUN (7-21) mg/dL Creatinine (0.7-1.2) mg/dl Est GFR ( Amer) Est GFR (Non-Af Amer) Random Glucose (70-110) mg/dL Calcium (8.4-10.5) mg/dL Phosphorus (2.5-4.5) mg/dL Magnesium (1.7-2.2) mg/dL Total Bilirubin (0.2-1.3) mg/dL AST (14-36) U/L ALT (7-56) U/L Alkaline Phosphatase (38-126) U/L Total Protein (5.8-8.3) g/dL Albumin (3.0-4.8) g/dL Globulin gm/dL Albumin/Globulin Ratio (1.1-1.8) Triglycerides 119 (35-160) mg/dL Cholesterol 194 (130-200) mg/dL LDL Cholesterol Direct 117 (0-129) mg/dL HDL Cholesterol 51 (29-60) mg/dL Blood Type Antibody Screen Crossmatch BBK History Checked 11/27/17 11/26/17 11/26/17 Range/Units 06:00 22:55 22:55 WBC 12.6 H (4.5-11.0) 10^3/ul RBC 2.88 L (3.5-6.1) 10^6/uL Hgb 8.6 L (12.0-16.0) g/dL Hct 25.3 L (36.0-48.0) % MCV 87.8 D (80.0-105.0) fl MCH 29.9 (25.0-35.0) pg MCHC 34.0 (31.0-37.0) g/dl RDW 16.0 H (11.5-14.5) % Plt Count 187 (120.0-450.0) 10^3/uL MPV 9.7 (7.0-11.0) fl Gran % (50.0-68.0) % Lymph % (Auto) (22.0-35.0) % Clayton % (Auto) (1.0-6.0) % Eos % (Auto) (1.5-5.0) % Baso % (Auto) (0.0-3.0) % Gran # (1.4-6.5) Lymph # (Auto) (1.2-3.4) Clayton # (Auto) (0.1-0.6) Eos # (Auto) (0.0-0.7) Baso # (Auto) (0.0-2.0) K/mm3 PT 11.5 (9.4-12.5) SECONDS INR 1.01 (0.93-1.08) APTT 29.8 (25.1-36.5) Seconds Sodium 142 (132-148) mmol/L Potassium 4.2 (3.6-5.0) mmol/L Chloride 107 (98-107) mmol/L Carbon Dioxide 24 (21-33) mmol/L Anion Gap 14 (10-20) BUN 24 H (7-21) mg/dL Creatinine 1.0 (0.7-1.2) mg/dl Est GFR ( Amer) > 60 Est GFR (Non-Af Amer) 56 Random Glucose 110 (70-110) mg/dL Calcium 8.8 (8.4-10.5) mg/dL Phosphorus 4.1 (2.5-4.5) mg/dL Magnesium 2.1 (1.7-2.2) mg/dL Total Bilirubin 0.3 (0.2-1.3) mg/dL AST 28 (14-36) U/L ALT 18 (7-56) U/L Alkaline Phosphatase 89 (38-126) U/L Total Protein 6.2 (5.8-8.3) g/dL Albumin 3.6 (3.0-4.8) g/dL Globulin 2.6 gm/dL Albumin/Globulin Ratio 1.4 (1.1-1.8) Triglycerides (35-160) mg/dL Cholesterol (130-200) mg/dL LDL Cholesterol Direct (0-129) mg/dL HDL Cholesterol (29-60) mg/dL Blood Type Antibody Screen Crossmatch BBK History Checked 11/26/17 Range/Units 15:04 WBC (4.5-11.0) 10^3/ul RBC (3.5-6.1) 10^6/uL Hgb (12.0-16.0) g/dL Hct (36.0-48.0) % MCV (80.0-105.0) fl MCH (25.0-35.0) pg MCHC (31.0-37.0) g/dl RDW (11.5-14.5) % Plt Count (120.0-450.0) 10^3/uL MPV (7.0-11.0) fl Gran % (50.0-68.0) % Lymph % (Auto) (22.0-35.0) % Clayton % (Auto) (1.0-6.0) % Eos % (Auto) (1.5-5.0) % Baso % (Auto) (0.0-3.0) % Gran # (1.4-6.5) Lymph # (Auto) (1.2-3.4) Clayton # (Auto) (0.1-0.6) Eos # (Auto) (0.0-0.7) Baso # (Auto) (0.0-2.0) K/mm3 PT (9.4-12.5) SECONDS INR (0.93-1.08) APTT (25.1-36.5) Seconds Sodium (132-148) mmol/L Potassium (3.6-5.0) mmol/L Chloride (98-107) mmol/L Carbon Dioxide (21-33) mmol/L Anion Gap (10-20) BUN (7-21) mg/dL Creatinine (0.7-1.2) mg/dl Est GFR ( Amer) Est GFR (Non-Af Amer) Random Glucose (70-110) mg/dL Calcium (8.4-10.5) mg/dL Phosphorus (2.5-4.5) mg/dL Magnesium (1.7-2.2) mg/dL Total Bilirubin (0.2-1.3) mg/dL AST (14-36) U/L ALT (7-56) U/L Alkaline Phosphatase (38-126) U/L Total Protein (5.8-8.3) g/dL Albumin (3.0-4.8) g/dL Globulin gm/dL Albumin/Globulin Ratio (1.1-1.8) Triglycerides (35-160) mg/dL Cholesterol (130-200) mg/dL LDL Cholesterol Direct (0-129) mg/dL HDL Cholesterol (29-60) mg/dL Blood Type O POSITIVE Antibody Screen Negative Crossmatch See Detail BBK History Checked Patient has bt Laboratory Results - last 24 hr 11/26/17 11/26/17 11/26/17 15:04 22:55 22:55 WBC 12.6 H RBC 2.88 L Hgb 8.6 L Hct 25.3 L MCV 87.8 D MCH 29.9 MCHC 34.0 RDW 16.0 H Plt Count 187 MPV 9.7 Gran % Lymph % (Auto) Clayton % (Auto) Eos % (Auto) Baso % (Auto) Gran # Lymph # (Auto) Clayton # (Auto) Eos # (Auto) Baso # (Auto) PT 11.5 INR 1.01 APTT 29.8 Sodium Potassium Chloride Carbon Dioxide Anion Gap BUN Creatinine Est GFR ( Amer) Est GFR (Non-Af Amer) Random Glucose Calcium Phosphorus Magnesium Total Bilirubin AST ALT Alkaline Phosphatase Total Protein Albumin Globulin Albumin/Globulin Ratio Triglycerides Cholesterol LDL Cholesterol Direct HDL Cholesterol Blood Type O POSITIVE Antibody Screen Negative Crossmatch See Detail BBK History Checked Patient has bt 11/27/17 11/27/17 11/27/17 06:00 06:00 06:00 WBC 9.2 D RBC 2.66 L Hgb 7.8 L Hct 23.1 L MCV 86.8 MCH 29.3 MCHC 33.8 RDW 16.7 H Plt Count 182 MPV 9.9 Gran % 66.4 Lymph % (Auto) 21.2 L Clayton % (Auto) 8.7 H Eos % (Auto) 3.4 Baso % (Auto) 0.3 Gran # 6.09 Lymph # (Auto) 1.9 Clayton # (Auto) 0.8 H Eos # (Auto) 0.3 Baso # (Auto) 0.03 PT 11.3 INR 0.98 APTT 28.2 Sodium 142 Potassium 4.2 Chloride 107 Carbon Dioxide 24 Anion Gap 14 BUN 24 H Creatinine 1.0 Est GFR ( Amer) > 60 Est GFR (Non-Af Amer) 56 Random Glucose 110 Calcium 8.8 Phosphorus 4.1 Magnesium 2.1 Total Bilirubin 0.3 AST 28 ALT 18 Alkaline Phosphatase 89 Total Protein 6.2 Albumin 3.6 Globulin 2.6 Albumin/Globulin Ratio 1.4 Triglycerides Cholesterol LDL Cholesterol Direct HDL Cholesterol Blood Type Antibody Screen Crossmatch BBK History Checked 11/27/17 06:00 WBC RBC Hgb Hct MCV MCH MCHC RDW Plt Count MPV Gran % Lymph % (Auto) Clayton % (Auto) Eos % (Auto) Baso % (Auto) Gran # Lymph # (Auto) Clayton # (Auto) Eos # (Auto) Baso # (Auto) PT INR APTT Sodium Potassium Chloride Carbon Dioxide Anion Gap BUN Creatinine Est GFR ( Amer) Est GFR (Non-Af Amer) Random Glucose Calcium Phosphorus Magnesium Total Bilirubin AST ALT Alkaline Phosphatase Total Protein Albumin Globulin Albumin/Globulin Ratio Triglycerides 119 Cholesterol 194 LDL Cholesterol Direct 117 HDL Cholesterol 51 Blood Type Antibody Screen Crossmatch BBK History Checked EKG/Cardiology Studies: Cardiology / EKG Studies 11/26/17 14:48 EKG [ELECTROCARDIOGRAM] Stat Comment: Reason For Exam: SOB Critical Care Progress Note - Nutrition Nutrition: Nutrition Category Date Time Status NPO Diet [DIET] Diets 11/26/17 Dinner Ordered Assessment/Plan - Assessment and Plan (Free Text) Plan: Patient seen and examined on rounds with resident, agree with note with following additions/exceptions: Patient is 62yo female a/w GIB, Anemia, SOB, found to have HH 6.7, given 2u PRBC , 2u FFP, and additional 1u PRBC today. Currently afebrile, HD stable, comfortable in NAD, doing well, reports NO major complaints. GI consulted, plan for EGD tomorrow. Cardiology consulted as well. Eliquis being held. CT abd/pelvis neg for acute pathology GIB Anemia SOB PAF on Eliquis HTN Tachycardia Guiac Positive Recommend: - supp o2 as needed - duonebs PRN - resume Cardizem PO - Panculture - hold Eliquis - 1u PRBC, repeat HH - cardiology eval - GI eval - PPI drip - NPO - maintain 2 large bore PIVs - q6hr CBC - GI ppx - DVT ppx, SCDs - monitor in MICU
[2017-11-27] MEDS ORDERED: diltiaZEM 180 mg/24 Hours CD Cap PO SCH (10:00)
[2017-11-27 10:08] LABS: HDL CHOLESTEROL 51 mg/dL (29-60)
[2017-11-27 10:18] LABS: LDL CHOLESTEROL 117 mg/dL (0-129)
--- NOTE | 2017-11-27 11:12 | CP.PCM.CON ---
<Grecia Willis - Last Filed: 11/27/17 15:57> History of Present Illness - History of Present Illness History of Present Illness: PGY-[address] Ramirez's service 62 yo female with past medical history of COPD, mitral valve disease, paroxysmal atrial fibrillation on Eliquis, presented to the Emergency Department today complaining of shortness of breath with exertion over the past week. Patient states that the sob has been worsening over the past three days, adn she is no longer able to walk a block without resting. She also report dark black stool for about 1 week. Patient states that she was started on PO iron about 3 weeks ago. Patient report previous mucosal bleeding of the mouth and nose when she was on warfarin. However she denies any bleeding since starting eliquis about 4-5 months ago. States that she has no chest pain currently.Denies abdominal pain. She also reports lightheadedness. Previous EGD from last year showed gastric ulcer with clean base. Colonoscopy showed internal hemorrhoids, redundant colon. Patient states that she did not follow up with GI. PMH: mitral valve disease, paroxysmal atrial fibrillation on Eliquis PSH: mitral valve replacement family history: heart disease, multiple members social history: social alcohol use, denies smoking or illiict drug use Review of Systems - Review of Systems All systems: reviewed and no additional remarkable complaints except Past Patient History - Infectious Disease Hx of Infectious Diseases: None - Tetanus Immunizations Tetanus Immunization: Unknown - Past Social History Smoking Status: Never Smoked - CARDIAC Hx Cardiac Disorders: Yes (ACS) Hx Hypertension: Yes Hx Pacemaker: No Other/Comment: Mitral Valve Replacement 04/23 - PULMONARY Hx Respiratory Disorders: Yes Hx Asthma: Yes Hx Chronic Obstructive Pulmonary Disease (COPD): Yes - NEUROLOGICAL Hx Neurological Disorder: Yes Hx Dizziness: Yes Hx Migraine: Yes - HEENT Hx HEENT Problems: No - RENAL Hx Chronic Kidney Disease: No - ENDOCRINE/METABOLIC Hx Endocrine Disorders: No - HEMATOLOGICAL/ONCOLOGICAL Hx Blood Disorders: Yes Hx Anemia: Yes (BLOOD TRANSFUSION) - INTEGUMENTARY Hx Dermatological Problems: No - MUSCULOSKELETAL/RHEUMATOLOGICAL Hx Musculoskeletal Disorders: Yes (KERWIN BUNION SX,LEFT CARPAL TUNNEL SX) Hx Falls: No - GASTROINTESTINAL Hx Gastrointestinal Disorders: Yes Hx Gall Bladder Disease: Yes (GALLSTONES) - GENITOURINARY/GYNECOLOGICAL Hx Genitourinary Disorders: Yes Hx Urinary Tract Infection: Yes - PSYCHIATRIC Hx Psychophysiologic Disorder: No Hx Emotional Abuse: No Hx Physical Abuse: No Hx Substance Use: No - SURGICAL HISTORY Hx Surgeries: Yes (BILATERAL BUNION SX,LEFT CARPAL TUNNEL SX,CARD CATH) Other/Comment: Mitral Valve Replacement - ANESTHESIA Hx Anesthesia: Yes Hx Anesthesia Reactions: No Hx Malignant Hyperthermia: No Meds Allergies/Adverse Reactions: Allergies Allergy/AdvReac Type Severity Reaction Status Date / Time cinnamon Allergy Intermediate ANAPHYLAXIS Verified 11/26/17 19:37 - Medications Medications: Current Medications Albuterol/Ipratropium (Duoneb 3 Mg/0.5 Mg (3 Ml) Ud) 3 ml IH [id number] PRN PRN Reason: Shortness of Breath Diltiazem HCl (Cardizem Cd) 120 mg PO DAILY [facility] Diphenhydramine HCl (Benadryl) 25 mg PO Q6 PRN PRN Reason: Allergy symptoms Last Admin: 11/27/17 00:43 Dose: 25 mg Pantoprazole Sodium (Protonix 40mg Ivpb) 40 mg in 100 mls @ 20 mls/hr IVPB .Q5H [facility] Last Admin: 11/27/17 07:22 Dose: 20 mls/hr Metoprolol Tartrate (Lopressor) 25 mg PO BID [facility] Metoprolol Tartrate (Lopressor) 5 mg IV Q6H [facility] Stop: 11/28/17 23:59 Ondansetron HCl (Zofran Inj) 4 mg IVP Q6H PRN PRN Reason: Nausea/Vomiting Physical Exam - Constitutional Appears: No Acute Distress - Head Exam Head Exam: ATRAUMATIC, NORMOCEPHALIC - Eye Exam Eye Exam: EOMI, Normal appearance - ENT Exam ENT Exam: Mucous Membranes Moist - Respiratory Exam Respiratory Exam: Clear to Auscultation Bilateral, NORMAL BREATHING PATTERN. absent: Decreased Breath Sounds, Rales, Rhonchi, Wheezes, Respiratory Distress - Cardiovascular Exam Cardiovascular Exam: REGULAR RHYTHM, +S1, +S2. absent: Bradycardia, Tachycardia , Systolic Murmur - GI/Abdominal Exam GI & Abdominal Exam: Normal Bowel Sounds, Soft. absent: Diminished Bowel Sounds , Distended, Firm, Guarding, Tenderness - Extremities Exam Extremities exam: Positive for: normal inspection. Negative for: pedal edema, tenderness - Neurological Exam Neurological exam: Alert, Oriented x3 - Psychiatric Exam Psychiatric exam: Normal Affect, Normal Mood - Skin Skin Exam: Dry, Intact, Normal Color, Warm Results - Vital Signs Recent Vital Signs: Last Vital Signs Temp 98.7 F 11/27/17 09:26 Pulse 108 H 11/27/17 09:26 Resp 16 11/27/17 09:26 BP 135/75 11/27/17 09:26 Pulse Ox 99 11/26/17 20:50 - Labs Result Diagrams: 11/27/17 13:20 11/27/17 06:00 Labs: Laboratory Results - last 24 hr 11/26/17 11/26/17 11/26/17 15:04 22:55 22:55 WBC 12.6 H RBC 2.88 L Hgb 8.6 L Hct 25.3 L MCV 87.8 D MCH 29.9 MCHC 34.0 RDW 16.0 H Plt Count 187 MPV 9.7 Gran % Lymph % (Auto) Barron % (Auto) Eos % (Auto) Baso % (Auto) Gran # Lymph # (Auto) Barron # (Auto) Eos # (Auto) Baso # (Auto) PT 11.5 INR 1.01 APTT 29.8 Sodium Potassium Chloride Carbon Dioxide Anion Gap BUN Creatinine Est GFR ( Amer) Est GFR (Non-Af Amer) Random Glucose Calcium Phosphorus Magnesium Total Bilirubin AST ALT Alkaline Phosphatase Total Protein Albumin Globulin Albumin/Globulin Ratio Triglycerides Cholesterol LDL Cholesterol Direct HDL Cholesterol Blood Type O POSITIVE Antibody Screen Negative Crossmatch See Detail BBK History Checked Patient has bt 11/27/17 11/27/17 11/27/17 06:00 06:00 06:00 WBC 9.2 D RBC 2.66 L Hgb 7.8 L Hct 23.1 L MCV 86.8 MCH 29.3 MCHC 33.8 RDW 16.7 H Plt Count 182 MPV 9.9 Gran % 66.4 Lymph % (Auto) 21.2 L Barron % (Auto) 8.7 H Eos % (Auto) 3.4 Baso % (Auto) 0.3 Gran # 6.09 Lymph # (Auto) 1.9 Barron # (Auto) 0.8 H Eos # (Auto) 0.3 Baso # (Auto) 0.03 PT 11.3 INR 0.98 APTT 28.2 Sodium 142 Potassium 4.2 Chloride 107 Carbon Dioxide 24 Anion Gap 14 BUN 24 H Creatinine 1.0 Est GFR ( Amer) > 60 Est GFR (Non-Af Amer) 56 Random Glucose 110 Calcium 8.8 Phosphorus 4.1 Magnesium 2.1 Total Bilirubin 0.3 AST 28 ALT 18 Alkaline Phosphatase 89 Total Protein 6.2 Albumin 3.6 Globulin 2.6 Albumin/Globulin Ratio 1.4 Triglycerides Cholesterol LDL Cholesterol Direct HDL Cholesterol Blood Type Antibody Screen Crossmatch BBK History Checked 11/27/17 06:00 WBC RBC Hgb Hct MCV MCH MCHC RDW Plt Count MPV Gran % Lymph % (Auto) Barron % (Auto) Eos % (Auto) Baso % (Auto) Gran # Lymph # (Auto) Barron # (Auto) Eos # (Auto) Baso # (Auto) PT INR APTT Sodium Potassium Chloride Carbon Dioxide Anion Gap BUN Creatinine Est GFR ( Amer) Est GFR (Non-Af Amer) Random Glucose Calcium Phosphorus Magnesium Total Bilirubin AST ALT Alkaline Phosphatase Total Protein Albumin Globulin Albumin/Globulin Ratio Triglycerides 119 Cholesterol 194 LDL Cholesterol Direct 117 HDL Cholesterol 51 Blood Type Antibody Screen Crossmatch BBK History Checked Assessment & Plan - Assessment and Plan (Free Text) Assessment: 62 yo female with past medical history of COPD, mitral valve disease, paroxsymal atrial fibrillation on Eliquis, presented with shortness of breath with exertion, found to have low hgb of 6.7, s/p 3 units pRBC. GI bleed anemia mitral valve disease paroxsymal atrial fibrillation Plan: -EGD from December 2016 showed gastric ulcer with clean base. Colonscopy showed internal hemorrhiods, redundant colon - CT abd/pelvis without contrast did not show any acute findings - patient received total 3 units pRBC - continue to monitor H&H for acute bleeding - Hold milliekaciricco will hole for 48 hours before endoscopy if patient is stable - clear liquid diet, NPO after midnight for endoscopy tomorrow case seen and discussed with Dr. Ramirez <Sun Ramirez V - Last Filed: 11/27/17 23:47> Meds - Medications Medications: Current Medications Albuterol/Ipratropium (Duoneb 3 Mg/0.5 Mg (3 Ml) Ud) 3 ml IH [id number] PRN PRN Reason: Shortness of Breath Diltiazem HCl (Cardizem Cd) 120 mg PO DAILY [facility] Last Admin: 11/27/17 16:35 Dose: 120 mg Diphenhydramine HCl (Benadryl) 25 mg PO Q6 PRN PRN Reason: Allergy symptoms Last Admin: 11/27/17 00:43 Dose: 25 mg Pantoprazole Sodium (Protonix 40mg Ivpb) 40 mg in 100 mls @ 20 mls/hr IVPB .Q5H [facility] Last Admin: 11/27/17 18:05 Dose: 20 mls/hr Metoprolol Tartrate (Lopressor) 25 mg PO BID [facility] Metoprolol Tartrate (Lopressor) 5 mg IV Q6H [facility] Stop: 11/28/17 23:59 Last Admin: 11/27/17 21:11 Dose: 5 mg Ondansetron HCl (Zofran Inj) 4 mg IVP Q6H PRN PRN Reason: Nausea/Vomiting Results - Vital Signs Recent Vital Signs: Last Vital Signs Temp 98.7 F 11/27/17 10:11 Pulse 103 H 11/27/17 21:11 Resp 16 11/27/17 18:00 BP 153/79 H 11/27/17 21:11 Pulse Ox 96 11/27/17 18:10 - Labs Result Diagrams: 11/27/17 13:20 11/27/17 06:00 Labs: Laboratory Results - last 24 hr 11/26/17 11/27/17 11/27/17 15:04 06:00 06:00 WBC 9.2 D RBC 2.66 L Hgb 7.8 L Hct 23.1 L MCV 86.8 MCH 29.3 MCHC 33.8 RDW 16.7 H Plt Count 182 MPV 9.9 Gran % 66.4 Lymph % (Auto) 21.2 L Barron % (Auto) 8.7 H Eos % (Auto) 3.4 Baso % (Auto) 0.3 Gran # 6.09 Lymph # (Auto) 1.9 Barron # (Auto) 0.8 H Eos # (Auto) 0.3 Baso # (Auto) 0.03 PT INR APTT Sodium 142 Potassium 4.2 Chloride 107 Carbon Dioxide 24 Anion Gap 14 BUN 24 H Creatinine 1.0 Est GFR ( Amer) > 60 Est GFR (Non-Af Amer) 56 Random Glucose 110 Calcium 8.8 Phosphorus 4.1 Magnesium 2.1 Total Bilirubin 0.3 AST 28 ALT 18 Alkaline Phosphatase 89 Total Protein 6.2 Albumin 3.6 Globulin 2.6 Albumin/Globulin Ratio 1.4 Triglycerides Cholesterol LDL Cholesterol Direct HDL Cholesterol Blood Type O POSITIVE Antibody Screen Negative Crossmatch See Detail BBK History Checked Patient has bt 11/27/17 11/27/17 11/27/17 06:00 06:00 13:20 WBC 9.3 RBC 3.12 L Hgb 9.5 L Hct 27.3 L MCV 87.5 MCH 30.4 MCHC 34.8 RDW 16.3 H Plt Count 159 MPV 9.2 Gran % 70.2 H Lymph % (Auto) 12.3 L Barron % (Auto) 13.1 H Eos % (Auto) 4.2 Baso % (Auto) 0.2 Gran # 6.49 Lymph # (Auto) 1.1 L Barron # (Auto) 1.2 H Eos # (Auto) 0.4 Baso # (Auto) 0.02 PT 11.3 INR 0.98 APTT 28.2 Sodium Potassium Chloride Carbon Dioxide Anion Gap BUN Creatinine Est GFR ( Amer) Est GFR (Non-Af Amer) Random Glucose Calcium Phosphorus Magnesium Total Bilirubin AST ALT Alkaline Phosphatase Total Protein Albumin Globulin Albumin/Globulin Ratio Triglycerides 119 Cholesterol 194 LDL Cholesterol Direct 117 HDL Cholesterol 51 Blood Type Antibody Screen Crossmatch BBK History Checked Attending/Attestation - Attestation I have personally seen and examined this patient.: Yes I have fully participated in the care of the patient.: Yes I have reviewed all pertinent clinical information: Yes Notes (Text): This is an addendum to GI progress report dictated by the Patient Scheduler.The patient was seen and examined earlier. Medical records, lab studies, imagings were reviewed. Last 24 hours events reviewed. Agreed with the above treatment plan as outlined in Patient Scheduler 's notes the with the addition of the following 11/27/17 23:47
--- NOTE | 2017-11-27 12:19 | CARD ---
APPROVED REPORT EKG Measurement Heart [id number] <Conclusion> Sinus tachycardia with premature atrial complexes Moderate voltage criteria for LVH, may be normal variant Nonspecific ST abnormality Abnormal ECG
[2017-11-27 13:29] LABS: BASO # 0.02 K/mm3 (0.0-2.0); BASO % 0.2 % (0.0-3.0); EOS # 0.4 (0.0-0.7); EOS % 4.2 % (1.5-5.0); GRAN # 6.49 (1.4-6.5); GRAN % 70.2 % (50.0-68.0); HEMOGLOBIN 9.5 g/dL (12.0-16.0); LYMPH # 1.1 (1.2-3.4); LYMPH % 12.3 % (22.0-35.0); MEAN CELL VOLUME 87.5 fl (80.0-105.0); MEAN CORPUSCULAR HEMOGLOBIN 30.4 pg (25.0-35.0); MEAN CORPUSCULAR HGB CONC 34.8 g/dl (31.0-37.0); MEAN PLATELET VOLUME 9.2 fl (7.0-11.0); MONO # 1.2 (0.1-0.6); MONO % 13.1 % (1.0-6.0); RBC 3.12 10^6/uL (3.5-6.1); RED CELL DISTRIBUTION WIDTH 16.3 % (11.5-14.5); WHITE BLOOD COUNT 9.3 10^3/ul (4.5-11.0)
--- NOTE | 2017-11-27 14:13 | CP.PCM.CON ---
History of Present Illness - History of Present Illness History of Present Illness: Consult Note for Dr. Jimenez, Hematology oncology Consulted for Coagulopathy 62 F with a PMHx of severe mitral regurgitation s/p open heart surgery and repair with MVR biprosthetic, history of paroxysmal afib (on eliquis), and non obstructing CAD , COPD presenting to [facility] ED with complaints of shortness of breath and black tarry stools, loose in nature. Patient stated that she is on iron at home as well as Eliquis for PAF. Patient stated that her symptoms began roughly 2 weeks ago, and noticed that her loose stools were dark/black in color. Then the patient developed worsening shortness of breath, worse than usual. Patient was found to be anemic with a hgb of 6.7 mildly hypotensive and tachycardic in ED. Patient was admitted to ICU and transfused 2u pRBC and 2u FFP. Patient was seen and examined at bedside. Patient has mild complaints of dizziness and lightheadedness. Patient tolerated transfusions of FFP and pRBCs without incident. No acute or adverse events overnight as per nursing staff. Patient denied fever, chills, shortness of breath, chest pain, abdominal pains, nausea, vomiting. Patient noted small BM that were dark in nature. PMHx: severe mitral regurgitation s/p open heart surgery and repair with MVR biprosthetic, history of paroxysmal afib (Eliquis), and non obstructing CAD , COPD. PSHx: open heart surgery, carpal tunnel, bunion, cholecystectomy. Social: Denies alcohol, tobacco or illicit drug use. Allergy: cinnamon Home meds: Reviewed, please see medical record. Review of Systems - Review of Systems Review of Systems: as per HPI otherwise negative Past Patient History - Infectious Disease Hx of Infectious Diseases: None - Tetanus Immunizations Tetanus Immunization: Unknown - Past Social History Smoking Status: Never Smoked - CARDIAC Hx Cardiac Disorders: Yes (ACS) Hx Hypertension: Yes Hx Pacemaker: No Other/Comment: Mitral Valve Replacement 04/23 - PULMONARY Hx Respiratory Disorders: Yes Hx Asthma: Yes Hx Chronic Obstructive Pulmonary Disease (COPD): Yes - NEUROLOGICAL Hx Neurological Disorder: Yes Hx Dizziness: Yes Hx Migraine: Yes - HEENT Hx HEENT Problems: No - RENAL Hx Chronic Kidney Disease: No - ENDOCRINE/METABOLIC Hx Endocrine Disorders: No - HEMATOLOGICAL/ONCOLOGICAL Hx Blood Disorders: Yes Hx Anemia: Yes (BLOOD TRANSFUSION) - INTEGUMENTARY Hx Dermatological Problems: No - MUSCULOSKELETAL/RHEUMATOLOGICAL Hx Musculoskeletal Disorders: Yes (KERWIN BUNION SX,LEFT CARPAL TUNNEL SX) Hx Falls: No - GASTROINTESTINAL Hx Gastrointestinal Disorders: Yes Hx Gall Bladder Disease: Yes (GALLSTONES) - GENITOURINARY/GYNECOLOGICAL Hx Genitourinary Disorders: Yes Hx Urinary Tract Infection: Yes - PSYCHIATRIC Hx Psychophysiologic Disorder: No Hx Emotional Abuse: No Hx Physical Abuse: No Hx Substance Use: No - SURGICAL HISTORY Hx Surgeries: Yes (BILATERAL BUNION SX,LEFT CARPAL TUNNEL SX,CARD CATH) Other/Comment: Mitral Valve Replacement - ANESTHESIA Hx Anesthesia: Yes Hx Anesthesia Reactions: No Hx Malignant Hyperthermia: No Meds Allergies/Adverse Reactions: Allergies Allergy/AdvReac Type Severity Reaction Status Date / Time cinnamon Allergy Intermediate ANAPHYLAXIS Verified 11/26/17 19:37 - Medications Medications: Current Medications Albuterol/Ipratropium (Duoneb 3 Mg/0.5 Mg (3 Ml) Ud) 3 ml IH [id number] PRN PRN Reason: Shortness of Breath Diltiazem HCl (Cardizem Cd) 120 mg PO DAILY [facility]O Diphenhydramine HCl (Benadryl) 25 mg PO Q6 PRN PRN Reason: Allergy symptoms Last Admin: 11/27/17 00:43 Dose: 25 mg Pantoprazole Sodium (Protonix 40mg Ivpb) 40 mg in 100 mls @ 20 mls/hr IVPB .Q5H [facility] Last Admin: 11/27/17 07:22 Dose: 20 mls/hr Metoprolol Tartrate (Lopressor) 25 mg PO BID [facility] Metoprolol Tartrate (Lopressor) 5 mg IV Q6H [facility] Stop: 11/28/17 23:59 Ondansetron HCl (Zofran Inj) 4 mg IVP Q6H PRN PRN Reason: Nausea/Vomiting Physical Exam - Constitutional Appears: Chronically Ill - Head Exam Head Exam: ATRAUMATIC, NORMAL INSPECTION, NORMOCEPHALIC - Eye Exam Eye Exam: EOMI, Normal appearance, PERRL Pupil Exam: NORMAL ACCOMODATION, PERRL - ENT Exam ENT Exam: Mucous Membranes Dry - Respiratory Exam Respiratory Exam: Clear to Auscultation Bilateral, NORMAL BREATHING PATTERN - Cardiovascular Exam Cardiovascular Exam: Irregular Rhythm, +S1, +S2 - GI/Abdominal Exam GI & Abdominal Exam: Normal Bowel Sounds, Soft. absent: Tenderness - Neurological Exam Neurological exam: Alert, CN II-XII Intact, Oriented x3, Reflexes Normal - Psychiatric Exam Psychiatric exam: Normal Affect, Normal Mood - Skin Skin Exam: Dry, Intact, Normal Color, Warm Results - Vital Signs Recent Vital Signs: Last Vital Signs Temp 98.7 F 11/27/17 09:26 Pulse 108 H 11/27/17 09:26 Resp 16 11/27/17 09:26 BP 135/75 11/27/17 09:26 Pulse Ox 99 11/26/17 20:50 - Labs Result Diagrams: 11/27/17 13:20 11/27/17 06:00 Labs: Laboratory Results - last 24 hr 11/26/17 11/26/17 11/26/17 15:04 22:55 22:55 WBC 12.6 H RBC 2.88 L Hgb 8.6 L Hct 25.3 L MCV 87.8 D MCH 29.9 MCHC 34.0 RDW 16.0 H Plt Count 187 MPV 9.7 Gran % Lymph % (Auto) Colbert % (Auto) Eos % (Auto) Baso % (Auto) Gran # Lymph # (Auto) Colbert # (Auto) Eos # (Auto) Baso # (Auto) PT 11.5 INR 1.01 APTT 29.8 Sodium Potassium Chloride Carbon Dioxide Anion Gap BUN Creatinine Est GFR ( Amer) Est GFR (Non-Af Amer) Random Glucose Calcium Phosphorus Magnesium Total Bilirubin AST ALT Alkaline Phosphatase Total Protein Albumin Globulin Albumin/Globulin Ratio Triglycerides Cholesterol LDL Cholesterol Direct HDL Cholesterol Blood Type O POSITIVE Antibody Screen Negative Crossmatch See Detail BBK History Checked Patient has bt 11/27/17 11/27/17 11/27/17 06:00 06:00 06:00 WBC 9.2 D RBC 2.66 L Hgb 7.8 L Hct 23.1 L MCV 86.8 MCH 29.3 MCHC 33.8 RDW 16.7 H Plt Count 182 MPV 9.9 Gran % 66.4 Lymph % (Auto) 21.2 L Colbert % (Auto) 8.7 H Eos % (Auto) 3.4 Baso % (Auto) 0.3 Gran # 6.09 Lymph # (Auto) 1.9 Colbert # (Auto) 0.8 H Eos # (Auto) 0.3 Baso # (Auto) 0.03 PT 11.3 INR 0.98 APTT 28.2 Sodium 142 Potassium 4.2 Chloride 107 Carbon Dioxide 24 Anion Gap 14 BUN 24 H Creatinine 1.0 Est GFR ( Amer) > 60 Est GFR (Non-Af Amer) 56 Random Glucose 110 Calcium 8.8 Phosphorus 4.1 Magnesium 2.1 Total Bilirubin 0.3 AST 28 ALT 18 Alkaline Phosphatase 89 Total Protein 6.2 Albumin 3.6 Globulin 2.6 Albumin/Globulin Ratio 1.4 Triglycerides Cholesterol LDL Cholesterol Direct HDL Cholesterol Blood Type Antibody Screen Crossmatch BBK History Checked 11/27/17 11/27/17 06:00 13:20 WBC 9.3 RBC 3.12 L Hgb 9.5 L Hct 27.3 L MCV 87.5 MCH 30.4 MCHC 34.8 RDW 16.3 H Plt Count 159 MPV 9.2 Gran % 70.2 H Lymph % (Auto) 12.3 L Colbert % (Auto) 13.1 H Eos % (Auto) 4.2 Baso % (Auto) 0.2 Gran # 6.49 Lymph # (Auto) 1.1 L Colbert # (Auto) 1.2 H Eos # (Auto) 0.4 Baso # (Auto) 0.02 PT INR APTT Sodium Potassium Chloride Carbon Dioxide Anion Gap BUN Creatinine Est GFR ( Amer) Est GFR (Non-Af Amer) Random Glucose Calcium Phosphorus Magnesium Total Bilirubin AST ALT Alkaline Phosphatase Total Protein Albumin Globulin Albumin/Globulin Ratio Triglycerides 119 Cholesterol 194 LDL Cholesterol Direct 117 HDL Cholesterol 51 Blood Type Antibody Screen Crossmatch BBK History Checked Assessment & Plan - Assessment and Plan (Free Text) Assessment: 62 F with a PMHx of severe mitral regurgitation s/p open heart surgery and repair with MVR biprosthetic, history of paroxysmal afib (on eliquis), and non obstructing CAD , COPD presenting to [facility] ED with complaints of shortness of breath and black tarry stools, loose in nature.admitted to ICU for symptomatic anemia with a Hgb 6.7 likely secondary to GI bleed. Patient is NPO and has been transfused 2u pRBC with a 3rd unit ordered on account of Hgb dropping one unit s /p 2 u last night to this morning. Pt tolerated 2u pRBCs and 2u FFP without incident. Eliquis is on hold for PAF. Cardiology Dr Beebe consulted. Patient is on protonix drip. Pending EGD tomorrow after off Eliquis for 48 hours, unless untowards events transpire in the interim. Blood coags wnl. Continue to monitor H&H q6.
[2017-11-27] MEDS: diltiaZEM 120 mg/24 Hours CD Cap PO SCH (16:35)
[2017-11-27] MEDS: Metoprolol 1 mg/ml Inj IV SCH ×3 (16:36→21:11)
--- NOTE | 2017-11-27 19:21 | HP ---
DATE OF EXAM: 11/26/2017 REASON FOR ADMISSION: Palpitation and dyspnea. HISTORY OF PRESENT ILLNESS: A 62-year-old female with history of chronic paroxysmal atrial fibrillation, status post open heart surgery for mitral valve replacement. The patient came into the ER because of dyspnea, palpitations, and the patient is currently on Eliquis and baby aspirin. The patient also seems does not take her Protonix or Pepcid and came to the ER for palpitations, found to be in sinus rhythm, no atrial fibrillations, and she has been taken her Eliquis and baby aspirin without any GI protective medicine, Protonix or Pepcid. She did have a history of GI bleed in the past, small peptic ulcers that was like less than a year ago, was treated by Dr. Ramirez. It was negative for H. pylori at that time and there was no active bleeding. The patient was given IV iron and advised to follow up. The patient came in hemoglobin 6.5 range. Also, noted that she has melena while she is in the emergency room. There is no nausea, no vomiting, no abdominal pain, no fever, no chills, and no chest pain. PAST MEDICAL HISTORY: As I mentioned above, 1. She does have chronic paroxysmal atrial fibrillations. 2. Status post mitral valve repair. 3. COPD, asthma. 4. Edema, lower extremities. 5. Chronic osteoarthritis both knees and chronic low back pain. 6. Anemia of iron deficiency. ALLERGIES: CINNAMON, OTHERWISE NO DRUG ALLERGY. FAMILY HISTORY: Cardiac history. SOCIAL HISTORY: She lives by herself. No smoking. No drugs. No alcohol. Never smoked in her life. She does drink alcohol socially once in a while, but otherwise no alcohol abuse. REVIEW OF SYSTEMS: As in the present illness, palpitations, dyspnea, back pain, knee arthritis, anxiety, joint pain, wheezing, cough, otherwise negative. PHYSICAL EXAMINATION: VITAL SIGNS: When she came in on 11/26/2017, her temperature 98.1, heart rate 116, respiration was fast, and blood pressure was 107/63 initially. GENERAL: The patient was seen in the ICU right after her CT abdomen and pelvis and she seemed stable, no distress, and hemodynamically stable on the monitor. HEAD AND NECK: Normal. No JVD. No thyromegaly. CHEST: Clear bilaterally. CARDIAC: First and second sounds are normal. No murmur, rub, or gallop. ABDOMEN: Soft, nontender. EXTREMITIES: No edema. NEUROLOGIC: Normal. LABORATORY DATA: Noted for white count 13.2, hemoglobin 6.7, hematocrit 20.7, platelets 236. Her chemistry shows sodium 138, potassium 4.6, chloride 105, bicarb 20, BUN 41, creatinine 0.9, blood sugar 118. Liver function test is normal. Her troponin is negative. PT and PTT are normal. The patient is on Eliquis. The patient also had chest x-ray, which shows no active disease, possible atelectasis , bilateral hyperaeration of the lungs, no consolidation, no gross mass seen . The patient had abdominal and pelvic CT, the result is pending. IMPRESSION AND PLAN: This is a 62-year-old female on anticoagulation for her chronic atrial fibrillation with history of peptic ulcer, noncompliant with her medicines, came in with melena, tachycardia, found to have hemoglobin of 6.5 range. The patient was admitted to ICU because of the Eliquis half life and active bleeding. We will monitor her hemoglobin and hematocrit. Intravenous fluids, transfuse 2 units of packed red blood cells. There is antidote for factor X inhibitors; however, we will discuss with the greige goods examiner on the case and will continue to transfuse the patient. The patient is also getting fresh frozen plasma. At this time, we will continue current treatment. GI consult, Dr. Ramirez; critical care team on the case; and also Cardiology, Dr. Beebe and also we will consider Hematology consult, Dr. Jimenez. Baltazar Guerra MD
--- NOTE | 2017-11-27 21:02 | PN ---
DATE: 11/27/2017 SUBJECTIVE: The patient in the ICU, is comfortable, stable, no distress. Received 2 units of packed RBCs. PHYSICAL EXAMINATION: Her physical examination is as follows, VITAL SIGNS: Temperature 98, heart rate 96, blood pressure 132/83, respirations 16, saturating 97% on room air. HEAD AND NECK: Normal. No JVD. No thyromegaly. CHEST: Clear bilaterally. CARDIAC: First sound and second sound normal. There is no murmur, rub or gallop. ABDOMEN: Soft, nontender. EXTREMITIES: No edema. NEUROLOGIC: Normal. LABORATORY DATA: Laboratory study shows white count 9.3, hemoglobin 9.5, hematocrit 27.3, platelets 139. Chemistries: Sodium 142, potassium 4.2, chloride 107, bicarb 24, BUN 24, creatinine is 1. Liver function test is normal, troponin is negative. PT, PTT are normal. IMPRESSION AND PLAN: 1. Acute upper gastrointestinal bleed with melena and dropped hemoglobin requiring transfusions. 2. 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 The patient has post 24 hours of last dose. Her effect has been gone. The patient seems stable at this time. Hematology consult on board for evaluation of coagulopathy. We will follow his recommendation. 3. History of peptic ulcer in the past. She had an endoscopy by Dr. Ramirez less than a year ago and she has peptic ulceration. The patient was noncompliant with the Protonix and Pepcid at home while she was taking Eliquis and 81 mg of aspirin. Possibility of recurrent ulceration most likely the cause of her upper gastrointestinal bleeding is considered. 4. Mitral valve replacement, stable. Paroxysmal atrial fibrillation. The necessity for anticoagulation will be evaluated in the presence of gastrointestinal bleeding serous enough to drop hemoglobin to 6.5. We will reevaluate. We will discuss with Dr. Beebe. At this time, we will rescope. We are going to do upper endoscopy by Dr. Ramirez tomorrow. She is stable hemodynamically. We will continue current therapy. Current medication right now she is getting, Lopressor 25 mg b.i.d. and she is also getting 5 mg IV every 6 hours as scheduled, so we are holding off the p.o. now. She is getting Protonix 40, Pepcid 20, diltiazem CD 120 and Zofran 4 mg IV every 6 p.r.n. Continue current therapy. Continue to monitor the patient clinically and repeat labs in the morning for endoscopy tomorrow morning. Baltazar Guerra MD
--- NOTE | 2017-11-27 21:18 | CON ---
DATE: 11/27/2017 CARDIOLOGY CONSULTATION REASON FOR CONSULTATION: Cardiac evaluation, history of status post open heart surgery for mitral regurgitation, MVR, paroxysmal atrial fibrillation, on Eliquis, admitted with GI bleed. BRIEF CLINICAL HISTORY: This is a 62-year-old female with past medical history significant for paroxysmal atrial fibrillation, on Eliquis; COPD; status post open heart surgery for mitral valve, on Eliquis for paroxysmal atrial fibrillation, came in with previous history of progressively worsening shortness of breath and black tarry stool, admitting hemoglobin 6.7, denies any chest pain, status post received 2 units of packed RBC in the ER. Denies any chest pain, shortness of breath, any palpitations. Patient is n.p.o. for possible endoscopy today. On IV drip for proton pump inhibitor. PAST MEDICAL HISTORY: Significant for paroxysmal atrial fibrillation, history of mitral regurgitation, status post cardiac catheterization twice, nonobstructive coronary artery disease, history of mitral valve repair in 04/2017, hypertension, noncompliance with medication. PAST SURGICAL HISTORY: Significant for cholecystectomy; carpal tunnel syndrome; bunionectomy, removal of bunion from the toe of the foot, and most recently patient had MVR bioprosthetic done at [facility] in 04/2017; history of cardiac catheterization twice two years ago where the patient was prepped for valve surgery, the patient canceled the surgery and does not want to go. Most recently, patient had a cardiac catheterization on 04/23/2017 at [facility] just prior to open heart surgery for mitral valve replacement because patient kept on complaining of chest pain; history of severe mitral valve prolapse and multiple times with referral for surgery, patient did not go and was scared, so had cardiac catheterization twice, most recently just before surgery in 04/2017 and after that patient had a bioprosthetic mitral valve replaced, post operation remained in paroxysmal atrial fibrillation, so was on Eliquis because of this; status post bioprosthetic mitral valve replacement in 04/2017. RECENT CARDIAC WORKUP: As follows: Patient most recently had echocardiography done on 05/10/2017 that shows normal size ventricle, ejection fraction 55%, trace aortic regurgitation, mild aortic stenosis, trace mitral regurgitation, mitral annular calcification, [id number] tricuspid regurgitation, RV systolic pressure of 37, trace pericardial effusion, status post bioprosthetic MV replacement done, status post open heart surgery in 04/2017. SOCIAL HISTORY: Denies any smoking. Denies any history of alcohol abuse. ALLERGIES: NO KNOWN DRUG ALLERGY. ALLERGY TO CINNAMON. CURRENT MEDICATIONS: Prior to coming here, patient was taking Eliquis, Zocor, metoprolol, furosemide, iron, Cardizem CD 120 mg, and baby aspirin. REVIEW OF SYSTEMS: As per HPI. PHYSICAL EXAMINATION: VITAL SIGNS: As follows: Temperature afebrile; heart rate 120, normal sinus, sinus tachycardia; blood pressure 139/76. HEENT: PERRLA, intact. NECK: Supple. No carotid bruit or thyromegaly. CHEST: Clear to auscultation. HEART: S1 and S2 regular. ABDOMEN: Soft. EXTREMITIES: Clubbing and cyanosis negative. LABORATORY DATA: Blood workup as follows: WBC 9.8; hemoglobin 7.8, admitting hemoglobin 6.7, status post two packed RBC units; hematocrit 23.1, platelet count 182. Chemistry shows sodium 142, potassium , chloride , carbon dioxide 24, anion gap of 14, BUN 24, creatinine 1. IMPRESSION: Gastrointestinal bleed; was on Eliquis, paroxysmal atrial fibrillation; severe mitral valve prolapse, status post open heart surgery for mitral valve bioprosthetic replacement in 04/2017, status post cardiac catheterization twice, last most recently just prior to valve surgery because the patient was complaining of chest pain, found to be 50% left anterior descending artery stenosis; nonobstructive coronary artery disease; noncompliance with the medication; hypertension; multiple noncardiac surgery. RECOMMENDATION: Hold Eliquis for now, increase beta-jasmyn, patient is n.p.o. We will give IV Lopressor to control the heart rate. Patient, because of sinus tachycardia, resumed back on metoprolol. Patient is okay to go for endoscopy if needed. We will also get an echo to assess LV function. Last echo was almost a year ago. We will review if no recent echo was done less than six months, we will repeat otherwise. We will follow up with you. Thank you, Dr. Guerra, for providing me the opportunity in taking care of patient, Dariana Mcgregor. Brittany Beebe MD [facility] # [id number]
[2017-11-28] MEDS: Metoprolol 1 mg/ml Inj IV SCH ×2 (03:00→10:53)
[2017-11-28 04:53] LABS: BASO # 0.01 K/mm3 (0.0-2.0); BASO % 0.1 % (0.0-3.0); EOS # 0.5 (0.0-0.7); EOS % 5.1 % (1.5-5.0); GRAN # 6.26 (1.4-6.5); GRAN % 68.1 % (50.0-68.0); HEMOGLOBIN 9.6 g/dL (12.0-16.0); LYMPH # 1.6 (1.2-3.4); MEAN CORPUSCULAR HEMOGLOBIN 29.5 pg (25.0-35.0); MEAN CORPUSCULAR HGB CONC 33.6 g/dl (31.0-37.0); MEAN PLATELET VOLUME 9.5 fl (7.0-11.0); MONO # 0.9 (0.1-0.6); MONO % 9.7 % (1.0-6.0); RBC 3.25 10^6/uL (3.5-6.1); RED CELL DISTRIBUTION WIDTH 16.8 % (11.5-14.5); WHITE BLOOD COUNT 9.2 10^3/ul (4.5-11.0)
[2017-11-28 05:09] LABS: INR 0.99 (0.93-1.08); PARTIAL THROMBOPLASTIN TIME 28.6 Seconds (25.1-36.5); PROTHROMBIN TIME 11.3 SECONDS (9.4-12.5)
[2017-11-28 05:43] LABS: ALB/GLOB RATIO 1.2 (1.1-1.8); ALBUMIN 3.6 g/dL (3.0-4.8); ALT/SGPT 33 U/L (7-56); AST/SGOT 27 U/L (14-36); BLOOD UREA NITROGEN 12 mg/dL (7-21); GFR AFRICAN-AMERICAN > 60; GFR NON-AFRICAN AMERICAN > 60
[2017-11-28] MEDS ORDERED: Sodium Chloride 0.9% 500 ML IV STA (06:32)
[2017-11-28] MEDS ORDERED: Morphine 4 mg/ml ISec IVP STA (06:34)
[2017-11-28] MEDS: Pantoprazole 40mg/100mL NS 40 MG/100 ML BAG IVPB SCH ×4 (06:54→22:48)
--- NOTE | 2017-11-28 09:12 | CP.CCUPN ---
<Juan Feliciano - Last Filed: 11/28/17 11:30> CCU Subjective - Physician Review Subjective (Free Text): 11/28/17 09:03 Patient seen and examined at bedside in ICU. Reports overall feeling better, only complains of headache today. Denies chest pain, shortness of breath, room spinning, syncope/near-syncope. Reports 1 episode of diarrhea overnight, dark colored, but no dimitri blood. Hgb improved to 9.6 yesterday after transfused 3rd unit pRBC, remained 9.5 this AM. Pending EGD today as per GI. 11/28/17 10:46 S/p EGD, as per GI, large based non-bleeding antral ulcer, site biopsied so primary team will wait until tomorrow to start anticoagulation. Patient cleared for transfer to telemetry by GI. CCU Objective - Vital Signs / Intake & Output Intake and Output (Last 8hrs): Intake & Output 11/27/17 11/28/17 11/28/17 22:59 06:59 14:59 Intake Total 720 Output Total 350 Balance 370 Intake: IV 240 Right Forearm 240 Oral 480 Output: Urine 350 Urine, Voided 350 Other: # Bowel Movements 1 - Physical Exam Head: Positive for: Atraumatic, Normocephalic Pupils: Positive for: PERRL. Negative for: Non-Reactive, Pinpoint Extroacular Muscles: Positive for: EOMI. Negative for: Gaze Palsy, Entrapment Conjunctiva: Positive for: Normal (conjunctival pallor resolved). Negative for : Injected, Icteric Mouth: Positive for: Moist Mucous Membranes, Normal Lips, Normal Tounge, Normal Teeth. Negative for: Dry, Drooling Pharnyx: Positive for: Normal. Negative for: ERYTHEMA, EXUDATE, Uvular Deviation, Muffled/Hoarse Voice Nose (External): Positive for: Atraumatic. Negative for: Abrasion, Laceration Nose (Internal): Positive for: Normal Inspection, No Active Bleeding. Negative for: Epistaxis Neck: Positive for: Normal Range of Motion, Trachea Midline. Negative for: JVD Respiratory/Chest: Positive for: Clear to Auscultation, Good Air Exchange. Negative for: Respiratory Distress, Accessory Muscle Use, Wheezes Cardiovascular: Positive for: Regular Rate and Rhythm, Murmurs, Normal S1, S2, Peripheal Pulses Present (+2 radial and dorsalis pedis bilaterally). Negative for: Irregular Rhythm, Tachycardic, Bradycardic Abdomen: Positive for: Normal Bowel Sounds. Negative for: Tenderness, Distention, Peritoneal Signs Genitourinary/Pelvic Exam: Negative for: Vaginal Bleeding Back: Negative for: CVA Tenderness Upper Extremity: Positive for: Normal Inspection, Normal ROM, NORMAL PULSES. Negative for: Cyanosis, Edema, Tenderness, Swelling, Erythema, Deformity Lower Extremity: Positive for: Normal Inspection, NORMAL PULSES, Normal ROM. Negative for: Edema, CALF TENDERNESS, Tenderness, Swelling, Erythema, Deformity Neurological: Positive for: GCS=15, Speech Normal, Motor Func Grossly Intact, Normal Sensory Function, Other (moving all extremities spontaneously) Skin: Positive for: Warm, Dry, Normal Color. Negative for: Rashes, Diaphoretic , Cold, Pale Psychiatric: Positive for: Alert, Oriented x 3 (self, location, year), Normal Insight, Normal Concentration, Normal Affect, Normal Mood. Negative for: Anxious, Agitated, Lethargic - Medications Active Medications: Active Medications Generic Name Dose Route Start Last Admin Trade Name Freq PRN Reason Stop Dose Admin Albuterol/Ipratropium 3 ml 11/26/17 15:35 Duoneb 3 Mg/0.5 Mg (3 Ml) Ud IH [id number] PRN Shortness of Breath Diltiazem HCl 120 mg 11/27/17 10:00 11/27/17 16:35 Cardizem Cd PO 120 mg DAILY GUALBERTO Administration Diphenhydramine HCl 25 mg 11/26/17 17:49 11/27/17 00:43 Benadryl PO 25 mg Q6 PRN Administration Allergy symptoms Pantoprazole Sodium 40 mg in 100 mls @ 20 mls/hr 11/26/17 15:30 11/28/17 06: 54 Protonix 40mg Ivpb IVPB 20 mls/hr .Q5H GUALBERTO Administration Metoprolol Tartrate 25 mg 11/27/17 10:00 Lopressor PO BID GUALBERTO Metoprolol Tartrate 5 mg 11/27/17 09:45 11/28/17 03:00 Lopressor IV 11/28/17 23:59 Not Given Q6H GUALBERTO Ondansetron HCl 4 mg 11/26/17 15:29 Zofran Inj IVP Q6H PRN Nausea/Vomiting - Patient Studies Lab Studies: Microbiology Studies 11/26/17 16:01 MRSA Culture (Admit) - Final Naris MRSA NOT DETECTED Lab Studies 11/28/17 11/28/17 11/28/17 Range/Units 04:20 04:20 04:20 WBC (4.5-11.0) 10^3/ul RBC (3.5-6.1) 10^6/uL Hgb (12.0-16.0) g/dL Hct (36.0-48.0) % MCV (80.0-105.0) fl MCH (25.0-35.0) pg MCHC (31.0-37.0) g/dl RDW (11.5-14.5) % Plt Count (120.0-450.0) 10^3/uL MPV (7.0-11.0) fl Gran % (50.0-68.0) % Lymph % (Auto) (22.0-35.0) % [place] % (Auto) (1.0-6.0) % Eos % (Auto) (1.5-5.0) % Baso % (Auto) (0.0-3.0) % Gran # (1.4-6.5) Lymph # (Auto) (1.2-3.4) [place] # (Auto) (0.1-0.6) Eos # (Auto) (0.0-0.7) Baso # (Auto) (0.0-2.0) K/mm3 PT 11.3 (9.4-12.5) SECONDS INR 0.99 (0.93-1.08) APTT 28.6 (25.1-36.5) Seconds Sodium 141 (132-148) mmol/L Potassium 3.8 (3.6-5.0) mmol/L Chloride 107 (98-107) mmol/L Carbon Dioxide 24 (21-33) mmol/L Anion Gap 14 (10-20) BUN 12 (7-21) mg/dL Creatinine 0.9 (0.7-1.2) mg/dl Est GFR ( Amer) > 60 Est GFR (Non-Af Amer) > 60 Random Glucose 107 (70-110) mg/dL Calcium 9.0 (8.4-10.5) mg/dL Phosphorus 3.7 (2.5-4.5) mg/dL Magnesium 2.0 (1.7-2.2) mg/dL Total Bilirubin 0.5 (0.2-1.3) mg/dL AST 27 (14-36) U/L ALT 33 (7-56) U/L Alkaline Phosphatase 96 (38-126) U/L Total Protein 6.4 (5.8-8.3) g/dL Albumin 3.6 (3.0-4.8) g/dL Globulin 2.9 gm/dL Albumin/Globulin Ratio 1.2 (1.1-1.8) Triglycerides (35-160) mg/dL Cholesterol (130-200) mg/dL LDL Cholesterol Direct (0-129) mg/dL HDL Cholesterol (29-60) mg/dL TSH 3rd Generation 0.86 (0.46-4.68) mIU/mL Blood Type Antibody Screen Crossmatch BBK History Checked 11/28/17 11/27/17 11/27/17 Range/Units 04:20 13:20 06:00 WBC 9.2 9.3 (4.5-11.0) 10^3/ul RBC 3.25 L 3.12 L (3.5-6.1) 10^6/uL Hgb 9.6 L 9.5 L (12.0-16.0) g/dL Hct 28.6 L 27.3 L (36.0-48.0) % MCV 88.0 87.5 (80.0-105.0) fl MCH 29.5 30.4 (25.0-35.0) pg MCHC 33.6 34.8 (31.0-37.0) g/dl RDW 16.8 H 16.3 H (11.5-14.5) % Plt Count 174 159 (120.0-450.0) 10^3/uL MPV 9.5 9.2 (7.0-11.0) fl Gran % 68.1 H 70.2 H (50.0-68.0) % Lymph % (Auto) 17.0 L 12.3 L (22.0-35.0) % [place] % (Auto) 9.7 H 13.1 H (1.0-6.0) % Eos % (Auto) 5.1 H 4.2 (1.5-5.0) % Baso % (Auto) 0.1 0.2 (0.0-3.0) % Gran # 6.26 6.49 (1.4-6.5) Lymph # (Auto) 1.6 1.1 L (1.2-3.4) [place] # (Auto) 0.9 H 1.2 H (0.1-0.6) Eos # (Auto) 0.5 0.4 (0.0-0.7) Baso # (Auto) 0.01 0.02 (0.0-2.0) K/mm3 PT (9.4-12.5) SECONDS INR (0.93-1.08) APTT (25.1-36.5) Seconds Sodium (132-148) mmol/L Potassium (3.6-5.0) mmol/L Chloride (98-107) mmol/L Carbon Dioxide (21-33) mmol/L Anion Gap (10-20) BUN (7-21) mg/dL Creatinine (0.7-1.2) mg/dl Est GFR ( Amer) Est GFR (Non-Af Amer) Random Glucose (70-110) mg/dL Calcium (8.4-10.5) mg/dL Phosphorus (2.5-4.5) mg/dL Magnesium (1.7-2.2) mg/dL Total Bilirubin (0.2-1.3) mg/dL AST (14-36) U/L ALT (7-56) U/L Alkaline Phosphatase (38-126) U/L Total Protein (5.8-8.3) g/dL Albumin (3.0-4.8) g/dL Globulin gm/dL Albumin/Globulin Ratio (1.1-1.8) Triglycerides 119 (35-160) mg/dL Cholesterol 194 (130-200) mg/dL LDL Cholesterol Direct 117 (0-129) mg/dL HDL Cholesterol 51 (29-60) mg/dL TSH 3rd Generation (0.46-4.68) mIU/mL Blood Type Antibody Screen Crossmatch BBK History Checked 11/26/17 Range/Units 15:04 WBC (4.5-11.0) 10^3/ul RBC (3.5-6.1) 10^6/uL Hgb (12.0-16.0) g/dL Hct (36.0-48.0) % MCV (80.0-105.0) fl MCH (25.0-35.0) pg MCHC (31.0-37.0) g/dl RDW (11.5-14.5) % Plt Count (120.0-450.0) 10^3/uL MPV (7.0-11.0) fl Gran % (50.0-68.0) % Lymph % (Auto) (22.0-35.0) % [place] % (Auto) (1.0-6.0) % Eos % (Auto) (1.5-5.0) % Baso % (Auto) (0.0-3.0) % Gran # (1.4-6.5) Lymph # (Auto) (1.2-3.4) [place] # (Auto) (0.1-0.6) Eos # (Auto) (0.0-0.7) Baso # (Auto) (0.0-2.0) K/mm3 PT (9.4-12.5) SECONDS INR (0.93-1.08) APTT (25.1-36.5) Seconds Sodium (132-148) mmol/L Potassium (3.6-5.0) mmol/L Chloride (98-107) mmol/L Carbon Dioxide (21-33) mmol/L Anion Gap (10-20) BUN (7-21) mg/dL Creatinine (0.7-1.2) mg/dl Est GFR ( Amer) Est GFR (Non-Af Amer) Random Glucose (70-110) mg/dL Calcium (8.4-10.5) mg/dL Phosphorus (2.5-4.5) mg/dL Magnesium (1.7-2.2) mg/dL Total Bilirubin (0.2-1.3) mg/dL AST (14-36) U/L ALT (7-56) U/L Alkaline Phosphatase (38-126) U/L Total Protein (5.8-8.3) g/dL Albumin (3.0-4.8) g/dL Globulin gm/dL Albumin/Globulin Ratio (1.1-1.8) Triglycerides (35-160) mg/dL Cholesterol (130-200) mg/dL LDL Cholesterol Direct (0-129) mg/dL HDL Cholesterol (29-60) mg/dL TSH 3rd Generation (0.46-4.68) mIU/mL Blood Type O POSITIVE Antibody Screen Negative Crossmatch See Detail BBK History Checked Patient has bt Laboratory Results - last 24 hr 11/26/17 11/27/17 11/27/17 15:04 06:00 13:20 WBC 9.3 RBC 3.12 L Hgb 9.5 L Hct 27.3 L MCV 87.5 MCH 30.4 MCHC 34.8 RDW 16.3 H Plt Count 159 MPV 9.2 Gran % 70.2 H Lymph % (Auto) 12.3 L [place] % (Auto) 13.1 H Eos % (Auto) 4.2 Baso % (Auto) 0.2 Gran # 6.49 Lymph # (Auto) 1.1 L [place] # (Auto) 1.2 H Eos # (Auto) 0.4 Baso # (Auto) 0.02 PT INR APTT Sodium Potassium Chloride Carbon Dioxide Anion Gap BUN Creatinine Est GFR ( Amer) Est GFR (Non-Af Amer) Random Glucose Calcium Phosphorus Magnesium Total Bilirubin AST ALT Alkaline Phosphatase Total Protein Albumin Globulin Albumin/Globulin Ratio Triglycerides 119 Cholesterol 194 LDL Cholesterol Direct 117 HDL Cholesterol 51 TSH 3rd Generation Blood Type O POSITIVE Antibody Screen Negative Crossmatch See Detail BBK History Checked Patient has bt 11/28/17 11/28/17 11/28/17 04:20 04:20 04:20 WBC 9.2 RBC 3.25 L Hgb 9.6 L Hct 28.6 L MCV 88.0 MCH 29.5 MCHC 33.6 RDW 16.8 H Plt Count 174 MPV 9.5 Gran % 68.1 H Lymph % (Auto) 17.0 L [place] % (Auto) 9.7 H Eos % (Auto) 5.1 H Baso % (Auto) 0.1 Gran # 6.26 Lymph # (Auto) 1.6 [place] # (Auto) 0.9 H Eos # (Auto) 0.5 Baso # (Auto) 0.01 PT 11.3 INR 0.99 APTT 28.6 Sodium 141 Potassium 3.8 Chloride 107 Carbon Dioxide 24 Anion Gap 14 BUN 12 Creatinine 0.9 Est GFR ( Amer) > 60 Est GFR (Non-Af Amer) > 60 Random Glucose 107 Calcium 9.0 Phosphorus 3.7 Magnesium 2.0 Total Bilirubin 0.5 AST 27 ALT 33 Alkaline Phosphatase 96 Total Protein 6.4 Albumin 3.6 Globulin 2.9 Albumin/Globulin Ratio 1.2 Triglycerides Cholesterol LDL Cholesterol Direct HDL Cholesterol TSH 3rd Generation Blood Type Antibody Screen Crossmatch BBK History Checked 11/28/17 04:20 WBC RBC Hgb Hct MCV MCH MCHC RDW Plt Count MPV Gran % Lymph % (Auto) [place] % (Auto) Eos % (Auto) Baso % (Auto) Gran # Lymph # (Auto) [place] # (Auto) Eos # (Auto) Baso # (Auto) PT INR APTT Sodium Potassium Chloride Carbon Dioxide Anion Gap BUN Creatinine Est GFR ( Amer) Est GFR (Non-Af Amer) Random Glucose Calcium Phosphorus Magnesium Total Bilirubin AST ALT Alkaline Phosphatase Total Protein Albumin Globulin Albumin/Globulin Ratio Triglycerides Cholesterol LDL Cholesterol Direct HDL Cholesterol TSH 3rd Generation 0.86 Blood Type Antibody Screen Crossmatch BBK History Checked Fingerstick Blood Sugar Results: 114 Review of Systems - Review of Systems All systems: reviewed and no additional remarkable complaints except (as per HPI ) Critical Care Progress Note - Nutrition Nutrition: Nutrition Category Date Time Status Liquid Diet [DIET] Diets 11/27/17 Dinner Ordered Assessment/Plan - Assessment and Plan (Free Text) Assessment: This is a 62 yo AA F with PMH of severe MR s/p mitral valve bioprosthesis, paroxysmal AFib on Eliquis, non-obstructing CAD, and COPD. She presented with progressively worsening shortness of breath and 2 weeks tarry stools/diarrhea, and was admitted to ICU for symptomatic anemia (Hgb 6.7) suspected to be 2/2 GI bleed. Her Hgb has improved after transfusion of 3 units pRBCs, and she is pending EGD today by GI. Plan: Neuro: -AAOx3, moving all extremities spontaneously -maintain normothermia -weakness likely 2/2 anemia, should be evaluated by PT/OT after Hgb stabilized and transferred to floors Cardio: -remains hemodynamically stable s/p 3 units pRBCs, tachycardia resolved, Hgb 9.5 (was 9.6 overnight) -continue Lopressor and Diltiazem, continue to hold Lasix/Aspirin/Eliquis -s/p 3 units pRBCs and 2 units FFP -holding AC due to GI biopsy, to start heparin tomorrow as per GI -Cardio consulted, appreciate their recs Pulm: -resume home Singulair -continue PRN Duonebs given hx COPD -Supplemental O2 as needed, satting well on 2L NC currently GI: -NPO for EGD, defer to GI for diet advancement -transition from Protonix drip to scheduled protonix as per GI -GI following, appreciate all recs; EGD notable for broad non-bleeding antral ulcer, biopsy taken, wait 24 hours prior to starting Renal: -monitor and replete electrolytes as needed -monitor I's and O's -BUN improved to 12 from 24, Cr stable at 0.9 (was 1), continue to monitor Heme -coags wnl again today -s/p 2 units FFP, 3 units pRBCs, Hgb stable at 9.5 (was 9.6 overnight) -avoid AC for 24 hrs due to GI biopsy ID: -afebrile, no leukocytosis -no indication for abx at this time Dispo: s/p EGD, transferred to telemetry FEN: NPO Access: Peripheral IV x3 Consults: GI, Cardio Ppx: Protonix drip covers GI, SCDs for DVT (avoid AC in setting of suspected GI bleed) Patient seen, reviewed, and discussed with attending, Dr. Camarena <Rinku Camarena - Last Filed: 11/28/17 12:26> CCU Objective - Vital Signs / Intake & Output Vital Signs (Last 4 hours): Vital Signs Temp Pulse Resp BP Pulse Ox 11/28/17 12:00 85 67 H 118/73 11/28/17 11:30 103 H 25 H 11/28/17 11:00 100 H 23 126/80 11/28/17 10:53 101 H 128/53 L 11/28/17 10:52 100 H 128/58 L 11/28/17 10:30 92 H 43 H 11/28/17 10:09 101 H 128/58 L 11/28/17 10:08 43 H 11/28/17 10:00 100 H 11/28/17 09:38 98.6 F 91 H 16 136/80 100 11/28/17 09:36 100 11/28/17 09:00 94 H 16 127/67 96 11/28/17 08:30 105 H 96 Intake and Output (Last 8hrs): Intake & Output 11/27/17 11/28/17 11/28/17 22:59 06:59 14:59 Intake Total 720 Output Total 350 Balance 370 Intake: IV 240 Right Forearm 240 Oral 480 Output: Urine 350 Urine, Voided 350 Other: # Bowel Movements 1 - Medications Active Medications: Active Medications Generic Name Dose Route Start Last Admin Trade Name Freq PRN Reason Stop Dose Admin Albuterol/Ipratropium 3 ml 11/26/17 15:35 Duoneb 3 Mg/0.5 Mg (3 Ml) Ud IH [id number] PRN Shortness of Breath Diltiazem HCl 120 mg 11/27/17 10:00 11/28/17 10:52 Cardizem Cd PO 120 mg DAILY GUALBERTO Administration Diphenhydramine HCl 25 mg 11/26/17 17:49 11/27/17 00:43 Benadryl PO 25 mg Q6 PRN Administration Allergy symptoms Pantoprazole Sodium 40 mg in 100 mls @ 20 mls/hr 11/26/17 15:30 11/28/17 09: 10 Protonix 40mg Ivpb IVPB 20 mls/hr .Q5H GUALBERTO Administration Metoprolol Tartrate 25 mg 11/28/17 18:00 Lopressor PO BID GUALBERTO Montelukast Sodium 10 mg 11/28/17 22:00 Singulair PO HS GUALBERTO Ondansetron HCl 4 mg 11/26/17 15:29 Zofran Inj IVP Q6H PRN Nausea/Vomiting - Patient Studies Lab Studies: Microbiology Studies 11/26/17 16:01 MRSA Culture (Admit) - Final Naris MRSA NOT DETECTED Lab Studies 11/28/17 11/28/17 11/28/17 Range/Units 04:20 04:20 04:20 WBC (4.5-11.0) 10^3/ul RBC (3.5-6.1) 10^6/uL Hgb (12.0-16.0) g/dL Hct (36.0-48.0) % MCV (80.0-105.0) fl MCH (25.0-35.0) pg MCHC (31.0-37.0) g/dl RDW (11.5-14.5) % Plt Count (120.0-450.0) 10^3/uL MPV (7.0-11.0) fl Gran % (50.0-68.0) % Lymph % (Auto) (22.0-35.0) % [place] % (Auto) (1.0-6.0) % Eos % (Auto) (1.5-5.0) % Baso % (Auto) (0.0-3.0) % Gran # (1.4-6.5) Lymph # (Auto) (1.2-3.4) [place] # (Auto) (0.1-0.6) Eos # (Auto) (0.0-0.7) Baso # (Auto) (0.0-2.0) K/mm3 PT 11.3 (9.4-12.5) SECONDS INR 0.99 (0.93-1.08) APTT 28.6 (25.1-36.5) Seconds Sodium 141 (132-148) mmol/L Potassium 3.8 (3.6-5.0) mmol/L Chloride 107 (98-107) mmol/L Carbon Dioxide 24 (21-33) mmol/L Anion Gap 14 (10-20) BUN 12 (7-21) mg/dL Creatinine 0.9 (0.7-1.2) mg/dl Est GFR ( Amer) > 60 Est GFR (Non-Af Amer) > 60 Random Glucose 107 (70-110) mg/dL Calcium 9.0 (8.4-10.5) mg/dL Phosphorus 3.7 (2.5-4.5) mg/dL Magnesium 2.0 (1.7-2.2) mg/dL Total Bilirubin 0.5 (0.2-1.3) mg/dL AST 27 (14-36) U/L ALT 33 (7-56) U/L Alkaline Phosphatase 96 (38-126) U/L Total Protein 6.4 (5.8-8.3) g/dL Albumin 3.6 (3.0-4.8) g/dL Globulin 2.9 gm/dL Albumin/Globulin Ratio 1.2 (1.1-1.8) TSH 3rd Generation 0.86 (0.46-4.68) mIU/mL Crossmatch 11/28/17 11/27/17 11/26/17 Range/Units 04:20 13:20 15:04 WBC 9.2 9.3 (4.5-11.0) 10^3/ul RBC 3.25 L 3.12 L (3.5-6.1) 10^6/uL Hgb 9.6 L 9.5 L (12.0-16.0) g/dL Hct 28.6 L 27.3 L (36.0-48.0) % MCV 88.0 87.5 (80.0-105.0) fl MCH 29.5 30.4 (25.0-35.0) pg MCHC 33.6 34.8 (31.0-37.0) g/dl RDW 16.8 H 16.3 H (11.5-14.5) % Plt Count 174 159 (120.0-450.0) 10^3/uL MPV 9.5 9.2 (7.0-11.0) fl Gran % 68.1 H 70.2 H (50.0-68.0) % Lymph % (Auto) 17.0 L 12.3 L (22.0-35.0) % [place] % (Auto) 9.7 H 13.1 H (1.0-6.0) % Eos % (Auto) 5.1 H 4.2 (1.5-5.0) % Baso % (Auto) 0.1 0.2 (0.0-3.0) % Gran # 6.26 6.49 (1.4-6.5) Lymph # (Auto) 1.6 1.1 L (1.2-3.4) [place] # (Auto) 0.9 H 1.2 H (0.1-0.6) Eos # (Auto) 0.5 0.4 (0.0-0.7) Baso # (Auto) 0.01 0.02 (0.0-2.0) K/mm3 PT (9.4-12.5) SECONDS INR (0.93-1.08) APTT (25.1-36.5) Seconds Sodium (132-148) mmol/L Potassium (3.6-5.0) mmol/L Chloride (98-107) mmol/L Carbon Dioxide (21-33) mmol/L Anion Gap (10-20) BUN (7-21) mg/dL Creatinine (0.7-1.2) mg/dl Est GFR ( Amer) Est GFR (Non-Af Amer) Random Glucose (70-110) mg/dL Calcium (8.4-10.5) mg/dL Phosphorus (2.5-4.5) mg/dL Magnesium (1.7-2.2) mg/dL Total Bilirubin (0.2-1.3) mg/dL AST (14-36) U/L ALT (7-56) U/L Alkaline Phosphatase (38-126) U/L Total Protein (5.8-8.3) g/dL Albumin (3.0-4.8) g/dL Globulin gm/dL Albumin/Globulin Ratio (1.1-1.8) TSH 3rd Generation (0.46-4.68) mIU/mL Crossmatch See Detail Laboratory Results - last 24 hr 11/26/17 11/27/17 11/28/17 15:04 13:20 04:20 WBC 9.3 9.2 RBC 3.12 L 3.25 L Hgb 9.5 L 9.6 L Hct 27.3 L 28.6 L MCV 87.5 88.0 MCH 30.4 29.5 MCHC 34.8 33.6 RDW 16.3 H 16.8 H Plt Count 159 174 MPV 9.2 9.5 Gran % 70.2 H 68.1 H Lymph % (Auto) 12.3 L 17.0 L [place] % (Auto) 13.1 H 9.7 H Eos % (Auto) 4.2 5.1 H Baso % (Auto) 0.2 0.1 Gran # 6.49 6.26 Lymph # (Auto) 1.1 L 1.6 [place] # (Auto) 1.2 H 0.9 H Eos # (Auto) 0.4 0.5 Baso # (Auto) 0.02 0.01 PT INR APTT Sodium Potassium Chloride Carbon Dioxide Anion Gap BUN Creatinine Est GFR ( Amer) Est GFR (Non-Af Amer) Random Glucose Calcium Phosphorus Magnesium Total Bilirubin AST ALT Alkaline Phosphatase Total Protein Albumin Globulin Albumin/Globulin Ratio TSH 3rd Generation Crossmatch See Detail 11/28/17 11/28/17 11/28/17 04:20 04:20 04:20 WBC RBC Hgb Hct MCV MCH MCHC RDW Plt Count MPV Gran % Lymph % (Auto) [place] % (Auto) Eos % (Auto) Baso % (Auto) Gran # Lymph # (Auto) [place] # (Auto) Eos # (Auto) Baso # (Auto) PT 11.3 INR 0.99 APTT 28.6 Sodium 141 Potassium 3.8 Chloride 107 Carbon Dioxide 24 Anion Gap 14 BUN 12 Creatinine 0.9 Est GFR ( Amer) > 60 Est GFR (Non-Af Amer) > 60 Random Glucose 107 Calcium 9.0 Phosphorus 3.7 Magnesium 2.0 Total Bilirubin 0.5 AST 27 ALT 33 Alkaline Phosphatase 96 Total Protein 6.4 Albumin 3.6 Globulin 2.9 Albumin/Globulin Ratio 1.2 TSH 3rd Generation 0.86 Crossmatch Critical Care Progress Note - Nutrition Nutrition: Nutrition Category Date Time Status Liquid Diet [DIET] Diets 11/27/17 Dinner Ordered Assessment/Plan - Assessment and Plan (Free Text) Plan: Patient seen and examined on rounds with resident, agree with note with following additions/exceptions: Patient is 62yo female a/w GIB, Anemia, SOB, found to have HH 6.7, given 3u PRBC , 2u FFP Currently afebrile, HD stable, comfortable in NAD, doing well, reports NO major complaints. CT abd/pelvis neg for acute pathology EGD today with large non bleeding ulcer, biopsied HH sequentially stable GIB Anemia SOB PAF on Eliquis HTN Tachycardia Guiac Positive Recommend: - supp o2 as needed - duonebs PRN - resume Cardizem PO, Lopressor - Panculture - hold Eliquis for now - start Heparin drip tomorrow, OK by GI - cardiology follow up - GI follow up - PPI BID - resume diet - maintain 2 large bore PIVs - GI ppx - DVT ppx, HSQ - stable, transfer to telemetry
[2017-11-28] MEDS ORDERED: Propofol 10 mg/ml Inj (20 ML) ONE (09:42)
[2017-11-28] MEDS ORDERED: Etomidate 20 mg/10ml Inj IV ONE (09:42)
[2017-11-28] MEDS: diltiaZEM 120 mg/24 Hours CD Cap PO SCH (10:52)
[2017-11-28] MEDS: Oxycodone/Acetaminophen 5/325 mg Tab PO PRN ×2 (13:06→21:25)
--- NOTE | 2017-11-28 13:21 | PN ---
DATE: 11/28/2017 REASON FOR CONSULTATION: Followup cardiac evaluation, history of open heart surgery, status post mitral valve repair, paroxysmal atrial fibrillation, on Eliquis. Admitted with GI bleed, black tarry stool. Hemoglobin 6.7. SUBJECTIVE: The patient denies any chest pain, shortness of breath or any palpitation. OBJECTIVE: GENERAL: Not in any apparent distress, lying flat on the bed. Had endoscopy done, found to be ulcer, nonbleeding. No blood clot. VITAL SIGNS: Temperature afebrile, heart rate 100, blood pressure 128/53. HEENT: PERRLA. Extraocular muscles intact. NECK: Supple. No carotid bruit. No thyromegaly. CHEST: Clear to auscultation. HEART: S1 and S2 regular. ABDOMEN: Soft. EXTREMITIES: Clubbing and cyanosis negative. LABORATORY DATA: Blood workup as follows; WBC 9.2, hemoglobin 9.6, hematocrit 28.6, platelet count 174. Chemistry shows sodium 141, potassium 3.8, chloride 107, carbon dioxide 24, anion gap of 14, BUN 12, creatinine 0.9, total bilirubin 0.5, phosphorus 3.7, magnesium 2. TSH 0.86, triglyceride , cholesterol 194, LDL 117, HDL 51. IMPRESSION: Status post gastrointestinal bleed, black tarry stool. Admitting hemoglobin 6.7. Status post endoscopy, large ulcer noted. History of peptic ulcer in the past, possibly is recurrence. No blood clot noted. History of paroxysmal atrial fibrillation, history of severe mitral regurg, mitral valve prolapse, status post open heart surgery and mitral valve repair, hypertension, obesity. RECOMMENDATIONS: Eliquis is on hold. Continue Cardizem CD p.o. We will start p.o. beta-jasmyn to control the heart rate and going back into arrhythmia. Once ulcer healing was started, trial of heparin and if the patient can tolerate, we will go back to Eliquis if not bleeding. We will follow with you. We will discontinue IV metoprolol and start p.o. Repeat the blood workup in the morning. Okay to be transferred to telemetry. Discussed with litigation specialist, Dr. Rinku Camarena. We will discontinue IV Lopressor and start p.o. Thank you, Dr. Guerra, for providing us the opportunity in taking care of the patient, Dariana Mcgregor. Brittany Beebe MD [facility] # [id number]
--- NOTE | 2017-11-28 14:15 | CARD ---
APPROVED REPORT EXAM: Two-dimensional and M-mode echocardiogram with Doppler and color Doppler. INDICATION S/P MVR BIOPROSTHETIC 2D DIMENSIONS Left Atrium (2D)4.6 (1.6-4.0cm)IVSd1.1 (0.7-1.1cm) LVDd5.4 (3.9-5.9cm)PWd1.3 (0.7-1.1cm) LVDs3.4 (2.5-4.0cm)FS (%) 36.2 % LVEF (%)65.4 (>50%) M-Mode DIMENSIONS Aortic Root2.30 (2.2-3.7cm)Aortic Cusp Exc.1.80 (1.5-2.0cm) Aortic Valve AoV Peak Dmlxjmcr906.0cm/[place] GR.15mmHg Mitral Valve MV E Eakdnsev979.0cm/sMV A Wuxpkrak647.0cm/sE/A ratio1.1 TDI E/Lateral E'0.0E/Medial E'0.0 Tricuspid Valve TR Peak Rccicxet016vu/sRAP [id number] Peak Gr.9mmHg [id number] LEFT VENTRICLE The left ventricle is normal size. There is borderline concentric left ventricular hypertrophy. The left ventricular function is normal.EF-65% There is normal LV segmental wall motion. Transmitral Doppler flow pattern is Grade II-pseudonormal filling dynamics. No left ventricle thrombus noted on this study. There is no ventricular septal defect visualized. There is no left ventricular aneurysm. There is no mass noted in the left ventricle. RIGHT VENTRICLE The right ventricle is normal size. There is normal right ventricular wall thickness. The right ventricular systolic function is normal. ATRIA The left atrium is mildly dilated. The right atrium size is normal. The interatrial septum is intact with no evidence for an atrial septal defect. AORTIC VALVE The aortic valve is thickened but opens well. There is trace aortic regurgitation. There is no aortic valvular stenosis. There is no aortic valvular vegetation. MITRAL VALVE Mitral regurgitation is trace. There is a bioprosthetic mitral valve.S/p MVR normal functioning. TRICUSPID VALVE The tricuspid valve leaflets are thickened , but open well. There is trace tricuspid regurgitation.RVSP_19 mmof Hg. There is no tricuspid valve stenosis. There is no tricuspid valve prolapse or vegetation. PULMONIC VALVE The pulmonary valve is normal in structure. GREAT VESSELS The aortic root is normal in size. The ascending aorta is normal in size. The pulmonary artery is normal. The IVC is normal in size and collapses >50% with inspiration. PERICARDIAL EFFUSION There is no pleural effusion. There is no pericardial effusion. <Conclusion> The left ventricle is normal size. There is borderline concentric left ventricular hypertrophy. The left ventricular function is normal.EF-65% There is trace aortic regurgitation. Mitral regurgitation is trace. There is a bioprosthetic mitral valve.S/p MVR normal functioning. There is trace tricuspid regurgitation.RVSP_19 mmof Hg. The IVC is normal in size and collapses >50% with inspiration. There is no pericardial effusion. No vegetation or thrombus noted.
--- NOTE | 2017-11-28 21:48 | PN ---
DATE: 11/28/2017 This is [facility]'s hospital visit on the telemetry floor. For Dr. Jimenez. SUBJECTIVE: The patient is a 62-year-old female, seen lying awake in bed, now transferred from the Intensive Care Unit to the telemetry floor for continued monitoring. It should be noted that the patient did have a significant drop in her hemoglobin with a hemoglobin of 6.7 on admission. Post transfusions, her hemoglobin today is 9.6 with the patient known to suffer from paroxysmal atrial fibrillation Eliquis in the past with the patient now suspected to have a GI bleed. At present, she is in no acute distress with the patient reporting some discomfort to her joints and her knees and her wrists with her narcotic analgesics helping her pain. OBJECTIVE PHYSICAL EXAMINATION: VITAL SIGNS: Temperature was 98.6, pulse 111, respirations 22, blood pressure 141/81 with a pulse ox of 100%. HEENT: Unremarkable. NECK: Supple. HEART: Regular rate. LUNGS: Clear. ABDOMEN: Soft, obese, nontender. EXTREMITIES: No edema. SKIN: Warm and dry. NEUROLOGIC: Awake, alert and oriented. LABORATORY DATA: The patient's labs were done. White blood cell count of 9.2, hemoglobin 9.6, up from 6.7 two days prior; hemoglobin of 28.6; platelet count of 174,000 with the chem metabolic panel completely within normal range this visit with an INR of 0.99. ASSESSMENT: The assessment for this patient is that of gastrointestinal bleed with severe symptomatic anemia, status post transfusion of 3 units of packed red blood cells with EGD done earlier today with Dr. Ramirez noting a nonbleeding antral ulcer that was biopsied on EGD earlier today. The patient also suffers from hypertension; chronic obstructive pulmonary disease; paroxysmal atrial fibrillation, on Eliquis in the past; epistaxis; obesity. PLAN: The plan for this patient after conversation with Dr. Jimenez is to continue with present medical regimen as per consultants' recommendations with her anticoagulation to be started once her GI bleed is satisfactorily controlled as per gastrointestinal cyber security consultant's recommendations and as per Dr. Beebe's recommendation. Prognosis for this patient is guarded. This is a complex patient with a comprehensive medically necessary and appropriate visit carried out in excess of 30 minutes' [id number] time with the patient's labs reviewed. Medications reviewed and questions answered to her satisfaction. Larry Mcdaniel MD
[2017-11-29] MEDS: Pantoprazole 40mg/100mL NS 40 MG/100 ML BAG IVPB SCH ×2 (04:06→10:34)
[2017-11-29] MEDS: Oxycodone/Acetaminophen 5/325 mg Tab PO PRN ×2 (05:24→10:38)
[2017-11-29 07:18] LABS: BASO # 0.01 K/mm3 (0.0-2.0); BASO % 0.1 % (0.0-3.0); EOS # 0.4 (0.0-0.7); EOS % 3.5 % (1.5-5.0); GRAN # 7.42 (1.4-6.5); GRAN % 68.4 % (50.0-68.0); HEMOGLOBIN 9.6 g/dL (12.0-16.0); LYMPH # 1.6 (1.2-3.4); LYMPH % 14.8 % (22.0-35.0); MEAN CELL VOLUME 90.6 fl (80.0-105.0); MEAN CORPUSCULAR HGB CONC 33.1 g/dl (31.0-37.0); MEAN PLATELET VOLUME 9.7 fl (7.0-11.0); MONO # 1.4 (0.1-0.6); MONO % 13.2 % (1.0-6.0); RBC 3.2 10^6/uL (3.5-6.1); RED CELL DISTRIBUTION WIDTH 16.7 % (11.5-14.5); WHITE BLOOD COUNT 10.8 10^3/ul (4.5-11.0)
[2017-11-29 07:28] LABS: INR 1.06 (0.93-1.08); PARTIAL THROMBOPLASTIN TIME 29.6 Seconds (25.1-36.5); PROTHROMBIN TIME 12.2 SECONDS (9.4-12.5)
[2017-11-29 07:29] LABS: ALB/GLOB RATIO 1.3 (1.1-1.8); ALBUMIN 3.5 g/dL (3.0-4.8); ALT/SGPT 29 U/L (7-56); AST/SGOT 22 U/L (14-36); BLOOD UREA NITROGEN 9 mg/dL (7-21); CALCIUM 8.7 mg/dL (8.4-10.5); GFR AFRICAN-AMERICAN > 60; GFR NON-AFRICAN AMERICAN 56
--- NOTE | 2017-11-29 07:51 | CP.PCM.PN ---
Subjective - Date & Time of Evaluation Date of Evaluation: 11/29/17 Time of Evaluation: 06:35 - Subjective Subjective: Awake,Alert, complaining of headache and knee pain, no distress Reason for consultation and follow up: cardiac evaluation,shortness of breath with exertion over the past week. History of COPD,post mitral valve repair, paroxsymal atrial fibrillation on Eliquis, Seen and examined by me and Dr. Beebe Objective - Vital Signs/Intake and Output Vital Signs (last 24 hours): Temp Pulse Resp BP Pulse Ox 98.9 F 94 H 20 126/71 99 11/29/17 06:00 11/29/17 06:00 11/29/17 06:00 11/29/17 06:00 11/29/17 06:00 Intake and Output: 11/29/17 11/29/17 06:59 18:59 Intake Total 180 Balance 180 - Medications Medications: Current Medications Albuterol/Ipratropium (Duoneb 3 Mg/0.5 Mg (3 Ml) Ud) 3 ml IH [id number] PRN PRN Reason: Shortness of Breath Diltiazem HCl (Cardizem Cd) 120 mg PO DAILY [facility] Last Admin: 11/28/17 10:52 Dose: 120 mg Diphenhydramine HCl (Benadryl) 25 mg PO Q6 PRN PRN Reason: Allergy symptoms Last Admin: 11/27/17 00:43 Dose: 25 mg Pantoprazole Sodium (Protonix 40mg Ivpb) 40 mg in 100 mls @ 20 mls/hr IVPB .Q5H [facility] Last Admin: 11/29/17 04:06 Dose: 20 mls/hr Metoprolol Tartrate (Lopressor) 25 mg PO BID [facility] Last Admin: 11/28/17 18:14 Dose: 25 mg Montelukast Sodium (Singulair) 10 mg PO HS [facility] Last Admin: 11/28/17 21:25 Dose: 10 mg Ondansetron HCl (Zofran Inj) 4 mg IVP Q6H PRN PRN Reason: Nausea/Vomiting Oxycodone/Acetaminophen (Percocet 5/325 Mg Tab) 1 tab PO Q6H PRN PRN Reason: Pain, moderate (4-7) Stop: 12/01/17 12:51 Last Admin: 11/29/17 05:24 Dose: 1 tab - Labs Labs: 11/29/17 07:10 11/29/17 07:10 PT 12.2 SECONDS (9.4-12.5) 11/29/17 07:10 INR 1.06 (0.93-1.08) 11/29/17 07:10 APTT 29.6 Seconds (25.1-36.5) 11/29/17 07:10 - Constitutional Appears: No Acute Distress - Eye Exam Eye Exam: Normal appearance - ENT Exam ENT Exam: Mucous Membranes Moist Additional comments: headache - Respiratory Exam Respiratory Exam: Clear to Ausculation Bilateral, NORMAL BREATHING PATTERN - Cardiovascular Exam Cardiovascular Exam: REGULAR RHYTHM, +S1, +S2 Additional comments: NSR telemetry - GI/Abdominal Exam GI & Abdominal Exam: Soft, Normal Bowel Sounds - Extremities Exam Extremities Exam: Normal Capillary Refill Additional comments: knee swelling - Neurological Exam Neurological Exam: Alert, Awake, Oriented x3 - Psychiatric Exam Psychiatric exam: Normal Affect, Normal Mood - Skin Skin Exam: Intact, Normal Color, Warm Assessment and Plan - Assessment and Plan (Free Text) Assessment: A 62 year old female who came to the ER due to shortness of breath with exertion over the past week. History of COPD,post mitral valve repair , paroxsymal atrial fibrillation on Eliquis. Claimed to have black tarry stools. Admitting hemoglobin 6.7, transfused PRBC, repeat hemoglobin, 9.7. endoscopy done and large ulcer noted. Held Eliquis, will restart when stable. Plan: Eliquis still on hold Hemoglobin 9.6 Stable cardiac status Telemetry NSR, monitor for Afib, if needed will start Heparin Complaining of knee pain,swollen, X ray ordered Percocet given for knee pain and headache Blood pressure and heart rate stable Continue current medications Continue current treatment Will follow up Plan and treatment discussed with Dr. Beebe
[2017-11-29] MEDS: diltiaZEM 120 mg/24 Hours CD Cap PO SCH (10:37)
--- NOTE | 2017-11-29 10:41 | RAD ---
PROCEDURE: Bilateral Knee Radiographs. HISTORY: pain COMPARISON: None. FINDINGS: BONES: Right Knee: Normal. No fracture. Left Knee: Normal. No fracture. JOINTS: Right Knee: There is joint space narrowing in the medial compartment. Minimal bony sclerosis. No osteophytes Left knee: Normal. No osteoarthritis. SOFT TISSUES: Right Knee: Normal. Left Knee: Normal. JOINT EFFUSION: Right Knee: None. Left Knee: None. OTHER FINDINGS: None. IMPRESSION: Right Knee: There is joint space narrowing in the medial compartment. Minimal bony sclerosis. No osteophytes Left knee unremarkable
[2017-11-29] MEDS ORDERED: Triamcinolone Acetonide 40 mg/mL Inj IU ONE ×2 (12:44→12:47)
--- NOTE | 2017-11-29 12:45 | CP.PCM.PN ---
<Grecia Willis - Last Filed: 11/29/17 14:08> Subjective - Date & Time of Evaluation Date of Evaluation: 11/29/17 Time of Evaluation: 10:00 - Subjective Subjective: PGY -[address] Ramirez's service Patient was seen and examined at bedside. No acute distress. Patients states that she is feeling better, denies abd pain, n/v, diarrhea. She states that she would like to have solid food. She denies any bleeding. Objective - Vital Signs/Intake and Output Vital Signs (last 24 hours): Temp Pulse Resp BP Pulse Ox 98.5 F 88 20 125/85 99 11/29/17 12:00 11/29/17 12:00 11/29/17 12:00 11/29/17 12:00 11/29/17 06:00 Intake and Output: 11/29/17 11/29/17 06:59 18:59 Intake Total 180 Balance 180 - Medications Medications: Current Medications Albuterol/Ipratropium (Duoneb 3 Mg/0.5 Mg (3 Ml) Ud) 3 ml IH [id number] PRN PRN Reason: Shortness of Breath Diltiazem HCl (Cardizem Cd) 120 mg PO DAILY [facility] BEDS AT [facility] Last Admin: 11/29/17 10:37 Dose: 120 mg Diphenhydramine HCl (Benadryl) 25 mg PO Q6 PRN PRN Reason: Allergy symptoms Last Admin: 11/27/17 00:43 Dose: 25 mg Pantoprazole Sodium (Protonix 40mg Ivpb) 40 mg in 100 mls @ 20 mls/hr IVPB .Q5H COUNTS INCLUDE 234 BEDS AT THE [facility] Last Admin: 11/29/17 10:34 Dose: 20 mls/hr Metoprolol Tartrate (Lopressor) 25 mg PO BID [facility]S [facility]CLUDE 234 BEDS AT THE [facility] Last Admin: 11/29/17 10:37 Dose: 25 mg Montelukast Sodium (Singulair) 10 mg PO HS [facility]S INCLUDE 234 BEDS AT THE [facility] Last Admin: 11/28/17 21:25 Dose: 10 mg Ondansetron HCl (Zofran Inj) 4 mg IVP Q6H PRN PRN Reason: Nausea/Vomiting Oxycodone/Acetaminophen (Percocet 5/325 Mg Tab) 1 tab PO Q6H PRN PRN Reason: Pain, moderate (4-7) Stop: 12/01/17 12:51 Last Admin: 11/29/17 10:38 Dose: 1 tab - Labs Labs: 11/29/17 07:10 11/29/17 07:10 PT 12.2 SECONDS (9.4-12.5) 11/29/17 07:10 INR 1.06 (0.93-1.08) 11/29/17 07:10 APTT 29.6 Seconds (25.1-36.5) 11/29/17 07:10 - Constitutional Appears: Well, No Acute Distress - Head Exam Head Exam: ATRAUMATIC, NORMOCEPHALIC - Eye Exam Eye Exam: EOMI, Normal appearance - ENT Exam ENT Exam: Mucous Membranes Moist - Respiratory Exam Respiratory Exam: Clear to Ausculation Bilateral, NORMAL BREATHING PATTERN. absent: Accessory Muscle Use, Decreased Breath Sounds, Rales, Rhonchi, Wheezes, Respiratory Distress, Stridor - Cardiovascular Exam Cardiovascular Exam: REGULAR RHYTHM, +S1, +S2. absent: Bradycardia, Tachycardia , Murmur - GI/Abdominal Exam GI & Abdominal Exam: Soft, Normal Bowel Sounds. absent: Distended, Firm, Guarding, Tenderness - Extremities Exam Extremities Exam: Normal Inspection. absent: Pedal Edema, Tenderness - Neurological Exam Neurological Exam: Alert, Awake, Oriented x3 - Skin Skin Exam: Dry, Intact, Normal Color, Warm Assessment and Plan - Assessment and Plan (Free Text) Assessment: 62 yo female with past medical history of COPD, mitral valve disease, paroxsymal atrial fibrillation on Eliquis, presented with shortness of breath with exertion, found to have low hgb of 6.7, s/p 3 units pRBC adn 2 units FFP. GI bleed anemia mitral valve disease paroxsymal atrial fibrillation Plan: -EGD showed non bleeding gastric ulcer with clean base (zeke clase III) - follow up biopsy - CT abd/pelvis without contrast on 11/26/17 did not show any acute findings - patient received total 3 units pRBC, and 2 units FFP - continue to monitor H&H for acute bleeding - hgb stable at 9.6 - will discuss with primary care about restarting anticoagulation, may need to be on heparin - will advance diet to full liquid diet, consider advancing diet if tolerating - discontinue protonix drip, protonix bid case seen and discussed with Dr. James <James,Kovil V - Last Filed: 11/30/17 00:45> Objective - Vital Signs/Intake and Output Vital Signs (last 24 hours): Temp Pulse Resp BP Pulse Ox 98.9 F 102 H 20 146/85 96 11/29/17 18:00 11/29/17 22:00 11/29/17 18:00 11/29/17 18:00 11/29/17 18:00 Intake and Output: 11/29/17 11/30/17 18:59 06:59 Intake Total 100 Balance 100 - Medications Medications: Current Medications Albuterol/Ipratropium (Duoneb 3 Mg/0.5 Mg (3 Ml) Ud) 3 ml IH [id number] PRN PRN Reason: Shortness of Breath Diltiazem HCl (Cardizem Cd) 120 mg PO DAILY [facility]CLUDE 234 BEDS AT [facility] Last Admin: 11/29/17 10:37 Dose: 120 mg Diphenhydramine HCl (Benadryl) 25 mg PO Q6 PRN PRN Reason: Allergy symptoms Last Admin: 11/27/17 00:43 Dose: 25 mg Heparin Sodium/Sodium Chloride (Heparin 22673 Units/250ml 1/2 Normal Saline) 25 ,000 units in 250 mls @ 13.227 mls/hr IV .[id number] PRN; Protocol; 18 UNITS/KG/HR PRN Reason: ADJUST RATE PER PROTOCOL Last Titration: 11/29/17 22:10 Dose: 15 units/kg/hr, 11.022 mls/hr Metoprolol Tartrate (Lopressor) 25 mg PO BID COUNTS INCLUDE 234 BEDS AT THE [facility] Last Admin: 11/29/17 17:23 Dose: 25 mg Montelukast Sodium (Singulair) 10 mg PO HS COUNTS INCLUDE 234 BEDS AT THE [facility] Last Admin: 11/29/17 21:58 Dose: 10 mg Ondansetron HCl (Zofran Inj) 4 mg IVP Q6H PRN PRN Reason: Nausea/Vomiting Oxycodone/Acetaminophen (Percocet 5/325 Mg Tab) 1 tab PO Q6H PRN PRN Reason: Pain, moderate (4-7) Stop: 12/01/17 12:51 Last Admin: 11/29/17 10:38 Dose: 1 tab Pantoprazole Sodium (Protonix Inj) 40 mg IVP Q12 COUNTS INCLUDE 234 BEDS AT THE [facility] Last Admin: 11/29/17 21:58 Dose: 40 mg - Labs Labs: 11/29/17 07:10 11/29/17 07:10 PT 12.2 SECONDS (9.4-12.5) 11/29/17 07:10 INR 1.06 (0.93-1.08) 11/29/17 07:10 APTT 120.6 Seconds (25.1-36.5) H* 11/29/17 20:48 Attending/Attestation - Attestation I have personally seen and examined this patient.: Yes I have fully participated in the care of the patient.: Yes I have reviewed all pertinent clinical information, including history, physical exam and plan: Yes Notes (Text): This is an addendum to GI progress report dictated by the Sanitary [employer] Machine Tender.The patient was seen and examined earlier. Medical records, lab studies, imagings were reviewed. Last 24 hours events reviewed. Agreed with the above treatment plan as outlined in Sanitary [employer] Machine Tender 's notes the with the addition of the following 11/30/17 00:45
[2017-11-29] MEDS ORDERED: Heparin25000 units/250ml 1/2NS 25,000 UNITS/250 ML BAG IV PRN (13:26)
--- NOTE | 2017-11-29 15:32 | CP.PCM.PN ---
Subjective - Date & Time of Evaluation Date of Evaluation: 11/29/17 Time of Evaluation: 09:00 - Subjective Subjective: Heme/Onc Progress Note for Dr. Jimenez Patient was seen and examined at bedside. Patient would like to eat regular food , however upon further discussion understood current diet. Patient had complaints of pain overnight/morning as per nursing staff, meds administered with successful effect. Patient denied fever, chills, shortness of breath, chest pains, abdominal pains, nausea, vomiting, diarrhea, constipation, or bleeding. Objective - Vital Signs/Intake and Output Vital Signs (last 24 hours): Temp Pulse Resp BP Pulse Ox 98.5 F 80 20 125/85 99 11/29/17 12:00 11/29/17 14:00 11/29/17 12:00 11/29/17 12:00 11/29/17 06:00 Intake and Output: 11/29/17 11/29/17 06:59 18:59 Intake Total 180 Balance 180 - Medications Medications: Current Medications Albuterol/Ipratropium (Duoneb 3 Mg/0.5 Mg (3 Ml) Ud) 3 ml IH [id number] PRN PRN Reason: Shortness of Breath Diltiazem HCl (Cardizem Cd) 120 mg PO DAILY [facility] Last Admin: 11/29/17 10:37 Dose: 120 mg Diphenhydramine HCl (Benadryl) 25 mg PO Q6 PRN PRN Reason: Allergy symptoms Last Admin: 11/27/17 00:43 Dose: 25 mg Heparin Sodium/Sodium Chloride (Heparin 31937 Units/250ml 1/2 Normal Saline) 25 ,000 units in 250 mls @ 13.227 mls/hr IV .[id number] PRN; Protocol; 18 UNITS/KG/HR PRN Reason: ADJUST RATE PER PROTOCOL Last Admin: 11/29/17 14:27 Dose: 18 units/kg/hr, 13.227 mls/hr Metoprolol Tartrate (Lopressor) 25 mg PO BID [facility] Last Admin: 11/29/17 10:37 Dose: 25 mg Montelukast Sodium (Singulair) 10 mg PO HS [facility] Last Admin: 11/28/17 21:25 Dose: 10 mg Ondansetron HCl (Zofran Inj) 4 mg IVP Q6H PRN PRN Reason: Nausea/Vomiting Oxycodone/Acetaminophen (Percocet 5/325 Mg Tab) 1 tab PO Q6H PRN PRN Reason: Pain, moderate (4-7) Stop: 12/01/17 12:51 Last Admin: 11/29/17 10:38 Dose: 1 tab Pantoprazole Sodium (Protonix Inj) 40 mg IVP Q12 GUALBERTO - Labs Labs: 11/29/17 07:10 11/29/17 07:10 PT 12.2 SECONDS (9.4-12.5) 11/29/17 07:10 INR 1.06 (0.93-1.08) 11/29/17 07:10 APTT 29.6 Seconds (25.1-36.5) 11/29/17 07:10 - Constitutional Appears: No Acute Distress - Head Exam Head Exam: ATRAUMATIC, NORMAL INSPECTION, NORMOCEPHALIC - Eye Exam Eye Exam: EOMI, Normal appearance, PERRL Pupil Exam: NORMAL ACCOMODATION, PERRL - ENT Exam ENT Exam: Mucous Membranes Moist, Normal Exam - Respiratory Exam Respiratory Exam: Clear to Ausculation Bilateral, NORMAL BREATHING PATTERN - Cardiovascular Exam Cardiovascular Exam: REGULAR RHYTHM, +S1, +S2. absent: Murmur - GI/Abdominal Exam GI & Abdominal Exam: Soft, Normal Bowel Sounds. absent: Tenderness - Neurological Exam Neurological Exam: Alert, Awake, CN II-XII Intact, Oriented x3 - Psychiatric Exam Psychiatric exam: Normal Affect, Normal Mood - Skin Skin Exam: Dry, Intact, Normal Color, Warm Assessment and Plan - Assessment and Plan (Free Text) Assessment: 62 F with a PMHx of severe mitral regurgitation s/p open heart surgery and repair with MVR biprosthetic, history of paroxysmal afib (on eliquis), and non obstructing CAD , COPD presenting to [facility] with complaints of shortness of breath and black tarry stools, loose in nature admitted to ICU for symptomatic anemia with a Hgb 6.7 likely secondary to GI bleed. Patient is NPO and has been transfused 3u pRBC and 2 u FFP. Repeat hemoglobin, 9.7. endoscopy done and large ulcer noted. Held Eliquis, will restart when stable.Eliquis still on hold. Cardiology Dr Beebe consulted. Patient is on protonix drip. As per GI, will continue full liquid diet, start heparin IV drip, NO boluses, monitor coags and titrate as needed without boluses. No oral AC at this time.
--- NOTE | 2017-11-29 16:30 | CON ---
DATE: 11/29/2017 REASONREASON FOR CONSULT: Bilateral knee pain and swelling. HISTORY OF PRESENT ILLNESS: This is a 62-year-old female with known history of gout, who presents with bilateral knee pain and swelling. The patient denies any specific issue of trauma. The patient states that she has had previous aspirations of her knee for fluid over the years. She denies any history of any fevers or chills. PHYSICAL EXAMINATION: GENERAL: This is a female, in no apparent distress. She is awake, alert, and oriented x3. EXTREMITIES: Evaluation of the left knee shows that she does have a moderate effusion. She is able to actively move the knee from approximately just above 0 to 100 degrees of flexion. Her skin is intact. She is grossly stable with varus valgus stress. She is able to do a straight leg raise. Her thigh and calf are soft and nontender. Neurovascularly, she is intact distally. Evaluation of the right knee again shows a moderate effusion. Her skin is intact. She has active range of motion from 0 to 105 degrees or so of flexion. Grossly stable with varus valgus stress. Her thigh and calf are soft and nontender. Neurovascularly, she is intact distally. She has x-ray done today. AP x-ray of the right knee shows no obvious fracture or dislocation. She has significant medial compartment narrowing. X-rays of the left knee again show no acute fracture or dislocation with some moderate medial compartment narrowing. No acute fractures or dislocation are appreciated in either knee. On lateral of the left knee, there appears to be a calcification in the suprapatellar region. She also has bilateral effusions appreciated. IMPRESSION: Bilateral knee effusions and arthritis. PLAN: We discussed treatment options. I recommended that we try aspiration of bilateral knees and sent the fluid for specimen including cell count, crystals, Gram stain and culture. However, the patient refused because she is scared of needles. At this point, this may most likely be secondary to gout. For now, recommend medical management and we will follow orthopedically as needed. The patient understands the definitive diagnosis of effusion and it is not possible without a fluid specimen and she understands this. We will follow as needed. Thomas Vines MD
[2017-11-30] MEDS: Oxycodone/Acetaminophen 5/325 mg Tab PO PRN ×3 (01:05→20:07)
[2017-11-30 07:24] LABS: BASO # 0.02 K/mm3 (0.0-2.0); BASO % 0.2 % (0.0-3.0); EOS # 0.1 (0.0-0.7); EOS % 1.2 % (1.5-5.0); GRAN # 8.44 (1.4-6.5); GRAN % 73.2 % (50.0-68.0); HEMOGLOBIN 9.7 g/dL (12.0-16.0); LYMPH # 1.1 (1.2-3.4); LYMPH % 9.4 % (22.0-35.0); MEAN CELL VOLUME 91.2 fl (80.0-105.0); MEAN CORPUSCULAR HEMOGLOBIN 29.3 pg (25.0-35.0); MEAN CORPUSCULAR HGB CONC 32.1 g/dl (31.0-37.0); MEAN PLATELET VOLUME 9.6 fl (7.0-11.0); MONO # 1.9 (0.1-0.6); RBC 3.31 10^6/uL (3.5-6.1); RED CELL DISTRIBUTION WIDTH 15.9 % (11.5-14.5); WHITE BLOOD COUNT 11.5 10^3/ul (4.5-11.0)
[2017-11-30 07:32] LABS: ALB/GLOB RATIO 1.1 (1.1-1.8); ALBUMIN 3.6 g/dL (3.0-4.8); ALT/SGPT 28 U/L (7-56); AST/SGOT 25 U/L (14-36); BLOOD UREA NITROGEN 12 mg/dL (7-21); CALCIUM 9.1 mg/dL (8.4-10.5); GFR AFRICAN-AMERICAN > 60; GFR NON-AFRICAN AMERICAN 56
--- NOTE | 2017-11-30 07:53 | CP.PCM.PN ---
Subjective - Date & Time of Evaluation Date of Evaluation: 11/30/17 Time of Evaluation: 06:25 - Subjective Subjective: Awake,Alert, complaining of knee pain, no distress Reason for consultation and follow up: cardiac evaluation,shortness of breath with exertion over the past week. History of COPD,post mitral valve repair, paroxsymal atrial fibrillation on Eliquis, Seen and examined by me and Dr. Rouse Objective - Vital Signs/Intake and Output Vital Signs (last 24 hours): Temp Pulse Resp BP Pulse Ox 98.3 F 102 H 98 H 133/79 96 11/30/17 06:00 11/30/17 06:00 11/30/17 06:00 11/30/17 06:00 11/30/17 00:19 Intake and Output: 11/30/17 11/30/17 06:59 18:59 Intake Total 656 Output Total 700 Balance -44 - Medications Medications: Current Medications Albuterol/Ipratropium (Duoneb 3 Mg/0.5 Mg (3 Ml) Ud) 3 ml IH [id number] PRN PRN Reason: Shortness of Breath Diltiazem HCl (Cardizem Cd) 120 mg PO DAILY [facility] Last Admin: 11/29/17 10:37 Dose: 120 mg Diphenhydramine HCl (Benadryl) 25 mg PO Q6 PRN PRN Reason: Allergy symptoms Last Admin: 11/27/17 00:43 Dose: 25 mg Heparin Sodium/Sodium Chloride (Heparin 37978 Units/250ml 1/2 Normal Saline) 25 ,000 units in 250 mls @ 13.227 mls/hr IV .[id number] PRN; Protocol; 18 UNITS/KG/HR PRN Reason: ADJUST RATE PER PROTOCOL Last Titration: 11/29/17 22:10 Dose: 15 units/kg/hr, 11.022 mls/hr Metoprolol Tartrate (Lopressor) 25 mg PO BID [facility] Last Admin: 11/29/17 17:23 Dose: 25 mg Montelukast Sodium (Singulair) 10 mg PO HS [facility] Last Admin: 11/29/17 21:58 Dose: 10 mg Ondansetron HCl (Zofran Inj) 4 mg IVP Q6H PRN PRN Reason: Nausea/Vomiting Oxycodone/Acetaminophen (Percocet 5/325 Mg Tab) 1 tab PO Q6H PRN PRN Reason: Pain, moderate (4-7) Stop: 12/01/17 12:51 Last Admin: 11/30/17 01:05 Dose: 1 tab Pantoprazole Sodium (Protonix Inj) 40 mg IVP Q12 [facility] Last Admin: 11/29/17 21:58 Dose: 40 mg - Labs Labs: 11/30/17 06:30 11/30/17 06:30 PT 12.2 SECONDS (9.4-12.5) 11/29/17 07:10 INR 1.06 (0.93-1.08) 11/29/17 07:10 APTT 120.6 Seconds (25.1-36.5) H* 11/29/17 20:48 - Constitutional Appears: No Acute Distress - Head Exam Head Exam: NORMOCEPHALIC - Eye Exam Eye Exam: Normal appearance - ENT Exam ENT Exam: Mucous Membranes Moist - Respiratory Exam Respiratory Exam: Clear to Ausculation Bilateral, NORMAL BREATHING PATTERN - Cardiovascular Exam Cardiovascular Exam: +S1, +S2 Additional comments: Telemetry ST 102-110/min - GI/Abdominal Exam GI & Abdominal Exam: Soft, Normal Bowel Sounds - Extremities Exam Extremities Exam: Normal Capillary Refill Additional comments: knee swollen with pain - Neurological Exam Neurological Exam: Alert, Awake, Oriented x3 - Psychiatric Exam Psychiatric exam: Normal Affect, Normal Mood - Skin Skin Exam: Intact, Normal Color, Warm Assessment and Plan - Assessment and Plan (Free Text) Assessment: A 62 year old female who came to the ER due to shortness of breath with exertion over the past week. History of COPD,post mitral valve repair , paroxsymal atrial fibrillation on Eliquis. Claimed to have black tarry stools. Admitting hemoglobin 6.7, transfused PRBC and FFP, repeat hemoglobin, 9.7. endoscopy done and large ulcer noted. Held Eliquis, will restart when stable. Started on heparin drip. Plan: EGD showed non bleeding antral gastric ulcer On Protonix IV Post transfusion of PRBC, Stable Hemoglobin 9.6 Stable cardiac status Started Heparin drip yesterday, PTT per protocol Still complaining of knee pain with swelling, Knee X -ray showed left knee normal, right knee showed joint space narrowing in the medial compartment Seen by Dr. Vines, impression for knee swelling-gout Percocet given for knee pain On Cardizem CD 120 mg daily, Lopressor 25 mg BID Telemetry Sinus tachycardia 110/min Will increase Lopressor Continue current medications Continue current treatment Will follow up Plan and treatment discussed with Dr. Rouse
[2017-11-30] MEDS: diltiaZEM 120 mg/24 Hours CD Cap PO SCH (09:53)
[2017-11-30 10:09] LABS: INR 1.21 (0.93-1.08)
[2017-11-30 10:11] LABS: PARTIAL THROMBOPLASTIN TIME 151.8 Seconds (25.1-36.5)
--- NOTE | 2017-11-30 13:32 | PN ---
DATE: 11/28/2017 SUBJECTIVE: Status post endoscopies. She had an ulcer. There was no active bleeding. No intervention. Patient is stable hemodynamically in the ICU. PHYSICAL EXAMINATION: On 11/28/2017 as follows; VITAL SIGNS: She had a temperature of 98, heart rate 101, respirations 18, blood pressure 132/55, saturating 97% on 2 L. HEAD AND NECK: Normal. No JVD. No thyromegaly. CHEST: Clear. Good air entry bilaterally. CARDIAC: First sound and second sound normal. There is systolic murmur. ABDOMEN: Soft and nontender. EXTREMITIES: No edema. NEUROLOGIC: Normal. EXTREMITIES: Bilateral knees, there is knee pain, knee swelling, and some effusion in both knees. LABORATORY STUDY: Shows white count 9.2, hemoglobin 9.6, hematocrit 28.5, and platelets 174. Chemistry showed sodium 141, potassium 3.8, chloride 107, bicarb 24. BUN 12, creatinine 0.9. Liver function test is normal. Alk phos is normal. Albumin-globulin normal. Patient has a TSH of 0.86, which is normal. IMPRESSION AND PLAN: 1. Acute upper gastrointestinal bleed. Currently, she is off any anticoagulation, status post endoscopy, clean based ulcers, no active bleeding. We will continue Protonix IV, Pepcid. Patient is stable. Monitor hemoglobin and hematocrit. Plan is to give another day 24-hour post endoscopy, we need to try heparin, see how the patient do before we switched it to the Eliquis. 2. Chronic paroxysmal atrial fibrillations, stable at this time. Continue current recommendations. We will consider putting patient back on aspirin, Eliquis when Cardiology clear her. 3. Hypertension, hypercholesterolemia, chronic osteoarthritis, gouty arthritis, status post mitral valve replacement, chronic anxiety, iron deficiency anemia, chronic asthma, chronic obstructive pulmonary disease. Continue inhaled bronchodilators. Continue beta-jasmyn for rate control, diltiazem 120 once daily, DuoNeb, Singulair, and Protonix IV. Patient is also getting Percocet for knee pain, seems doing well. Continue current treatment. Baltazar Guerra MD
--- NOTE | 2017-11-30 13:39 | PN ---
DATE: 11/29/2017 SUBJECTIVE: The patient is otherwise stable. No chest pain. No short of breath. No nausea. No vomiting. Currently, she is getting IV Protonix and will be starting soon IV heparin. She has no new complaint. Her knee 0.19 we will consider injections. At this time, we will try to get her knee x-ray. PHYSICAL EXAMINATION: On 11/29/2017; GENERAL: She is on medical floor to the remote telemetry. VITAL SIGNS: As follows; temperature 98.3, heart rate 102, blood pressure 133/79, respirations 18, and saturation 98% on room air. HEAD AND NECK: Normal. No JVD. No thyromegaly. CHEST: Clear. Good air entry. CARDIAC: First sound and second sound normal. Systolic murmur. ABDOMEN: Soft, nontender. EXTREMITIES: No edema. NEUROLOGIC: Normal. LABORATORY DATA: PT 12.2, INR 1, and PTT is 29.6. We will be starting heparin soon. IMPRESSION AND PLAN: 1. Acute gastrointestinal bleed, iron deficiency anemia, status post blood transfusions, hemoglobin now 9 to 10 range, stable. We will monitor her hemoglobin and hematocrit. 2. Chronic paroxysmal atrial fibrillations, status post mitral valve repair due to degenerative mitral valve disease. Currently, she is off any anticoagulation. We will start the patient on intravenous heparin to see how she will do with that. Any bleeding, we will stop it, but we will continue monitor PTT. Dr. Beebe's consultation and recommendations were appreciated. 3. Acute peptic ulcer. Continue intravenous Protonix. Continue intravenous Pepcid. 4. Chronic obstructive pulmonary disease, chronic gouty arthritis, osteoarthritis, back pain. Continue inhaled bronchodilators. Continue Percocet p.r.n. We will consider steroids; however, because of the risk of steroid induced ulcerations, we will hold off from that to see how the patient do and will see what the Orthopedic recommendation by Dr. Vines. Baltazar Guerra MD
--- NOTE | 2017-11-30 16:01 | PN ---
DATE: 11/30/2017 This is [facility] ([facility]s [place] [facility] visit on the telemetry floor. For Dr. Jimenez. SUBJECTIVE: The patient is a 62-year-old female, patient of Dr. Guerra with known cardiovascular compromise with GI bleed secondary to recently diagnosed peptic ulcer disease. Her hemoglobin was 6.7 on admission with the hemoglobin 9.7 today. She also has paroxysmal atrial fibrillation, was on Eliquis in the past and is now recommended not to have an anticoagulant that cannot be monitored as per Dr. Ramirez. Therefore we began low-dose heparin with no bolus yesterday; however, despite being on low dose with no bolus, PTT was significantly elevated and it has been discontinued. We will restart the heparin after a PTT value within normal range is recovered at a low dose of 800 units of heparin per hour with a PTT to be checked 4 hours later to keep below or equal to 50 for her PTT value. The patient is otherwise complaining of knee pain; however, she refused an injection by Dr. Vines because the needle was too big she said; however, she may reconsider this as this is her only complaint at present. OBJECTIVE PHYSICAL EXAMINATION: VITAL SIGNS: Temperature 98, pulse 97, respirations 18, blood pressure 129/66 with a pulse ox of 96%. HEENT: Unremarkable. NECK: Supple. HEART: Regular rate. Occasional ectopic beat. LUNGS: Clear. ABDOMEN: Soft, nontender. EXTREMITIES: Decreased range of motion of left knee with minimal tenderness to gentle palpation there. NEUROLOGIC: Awake, alert. SKIN: Otherwise, warm, dry and clear. LABORATORY DATA: The patient's labs were done. White blood cell count of 11.5, hemoglobin 9.7, hematocrit 30.2, platelet count of 212,000 with a chem metabolic panel completely within normal range from today. Her PTT, however, yesterday was 120 with held as per protocol with repeat today with PTT of 151.8. With this, the heparin was discontinued. ASSESSMENT: The assessment for this patient is that of gastrointestinal bleed with severe symptomatic anemia, status post transfusion of 3 units of packed cells. EGD showing a nonbleeding antral ulcer, biopsied by Dr. Ramirez. The patient also suffers from hypertension, chronic obstructive pulmonary disease, paroxysmal atrial fibrillation, epistaxis and obesity. PLAN: The plan for this patient after conservation with Dr. Jimenez and Dr. Ramirez is to stop the heparin, which was done. We will restart it at a lower dose with no boluses. This was also spoken to and documented with the physician as communication with the patient to eventually be restarted on Coumadin in the future. We will monitor clinically with labs as indicated. We will also ask for a reconsult with Dr. Vines to consider injection of her knee as the patient is now satisfied that this may indeed help her. This is a complex patient with a comprehensive medically necessary and appropriate visit carried out in excess of 30 minutes with the patient's questions answered to her satisfaction, conversations held with Dr. Ramirez and Dr. Jimenez regarding her care, also the nurse and the pharmacy were also contacted regarding care for this patient. Larry Mcdaniel MD
[2017-11-30] MEDS ORDERED: Heparin25000 units/250ml 1/2NS 25,000 UNITS/250 ML BAG IV SCH (20:00)
[2017-11-30] MEDS ORDERED: MethylPREDNISolone 40 mg Vial IVP STA (21:01)
--- NOTE | 2017-12-01 01:24 | PN ---
DATE: 11/30/2017 SUBJECTIVE: This patient was seen and evaluated earlier today. The patient was on liquid diet. The patient's heparin is on hold because of the elevated PTT. The patient was started on heparin with no bolus. However, in view of the highly elevated PTT of 151, it has been on hold. The patient denies any bleeding and no abdominal pain. Feels hungry. Wants to eat food. PHYSICAL EXAMINATION: VITAL SIGNS: Temperature 97.8, pulse 95, blood pressure is 131/87, respirations 18. HEENT: Atraumatic and anicteric. NECK: Supple. HEART: S1 and S2 heard. LUNGS: Bilateral air entry present. ABDOMEN: Soft. There is no tenderness. EXTREMITIES: No edema. No cyanosis. LABORATORY DATA: PTT 151.8. Chemistry is normal. Hemoglobin 9.7, hematocrit 30.2, WBC is 11.5, platelets 212. IMPRESSION: This 62-year-old patient with a history of paroxysmal atrial fibrillation; history of mitral valve replacement, bioprosthetic valve. The patient was on Eliquis. The patient was found to be severely anemic on admission with hemoglobin of 6.7, admitted, status post 3 units transfusion with 2 units of FFP. Hemoglobin is now stable. The patient did have an endoscopy done, found to have a large ulceration in the antrum. Biopsies were taken again. RECOMMENDATIONS: Continue IV heparin. If the patient has no active bleeding for 48 hours, we will start the patient on Coumadin. We will prefer heparin and Coumadin regimen to titrate the dose and also reversibility in view of her acute bleeding, We would avoid newer anticoagulation and also Lovenox. The patient would benefit from long-time PPI therapy and followup in our office. Would recommend: 1. Follow up of the hemoglobin and hematocrit. 2. Continue the high dose PPI. 3. Repeat EGD in about 2 months' time and evaluate the healing of the ulcer. I did have a detailed discussion with Dr. Larry Mcdaniel. The plan is to start the patient back on heparin after 6 hours at a reduced dose of 800 units rather than following the AF protocol. Thank you very much for allowing us to participate in the care of the patient. Kovil James, MD MTDIngrid
[2017-12-01 04:41] LABS: ALB/GLOB RATIO 1.1 (1.1-1.8); ALBUMIN 3.6 g/dL (3.0-4.8); CALCIUM 9.2 mg/dL (8.4-10.5)
[2017-12-01 04:43] LABS: BASO # 0.01 K/mm3 (0.0-2.0); GRAN # 20.53 (1.4-6.5); GRAN % 96.1 % (50.0-68.0); HEMOGLOBIN 9.5 g/dL (12.0-16.0); LYMPH # 0.3 (1.2-3.4); LYMPH % 1.4 % (22.0-35.0); MEAN CELL VOLUME 90.8 fl (80.0-105.0); MEAN CORPUSCULAR HEMOGLOBIN 29.2 pg (25.0-35.0); MEAN CORPUSCULAR HGB CONC 32.2 g/dl (31.0-37.0); MEAN PLATELET VOLUME 10.4 fl (7.0-11.0); MONO # 0.5 (0.1-0.6); MONO % 2.5 % (1.0-6.0); PLATELET COUNT 227 10^3/uL (120.0-450.0); RBC 3.25 10^6/uL (3.5-6.1); RED CELL DISTRIBUTION WIDTH 15.3 % (11.5-14.5); WHITE BLOOD COUNT 21.4 10^3/ul (4.5-11.0)
[2017-12-01 06:31] LABS: BAND 9 % (0-2); NEUTROPHIL 86 % (50.0-70.0)
[2017-12-01 06:32] LABS: LYMPHOCYTE 2 % (22.0-35.0); MONOCYTE 3 % (1.0-6.0); PLATELET ESTIMATE NORMAL (NORMAL)
--- NOTE | 2017-12-01 08:46 | CP.PCM.PN ---
Subjective - Date & Time of Evaluation Date of Evaluation: 12/01/17 Time of Evaluation: 06:40 - Subjective Subjective: Awake,Alert, no distress,feels much better today,less swelling on knees Reason for consultation and follow up: cardiac evaluation,shortness of breath with exertion over the past week. History of COPD,post mitral valve repair, paroxsymal atrial fibrillation on Eliquis, Seen and examined by me and Dr. Rouse Objective - Vital Signs/Intake and Output Vital Signs (last 24 hours): Temp Pulse Resp BP Pulse Ox 98.5 F 91 H 20 110/70 93 L 12/01/17 06:00 12/01/17 08:40 12/01/17 06:00 12/01/17 08:40 12/01/17 06:00 Intake and Output: 12/01/17 12/01/17 06:59 18:59 Intake Total 72 Balance 72 - Medications Medications: Current Medications Albuterol/Ipratropium (Duoneb 3 Mg/0.5 Mg (3 Ml) Ud) 3 ml IH [id number] PRN PRN Reason: Shortness of Breath Diltiazem HCl (Cardizem Cd) 120 mg PO DAILY [facility] Last Admin: 11/30/17 09:53 Dose: 120 mg Diphenhydramine HCl (Benadryl) 25 mg PO Q6 PRN PRN Reason: Allergy symptoms Last Admin: 11/30/17 09:58 Dose: 25 mg Heparin Sodium/Sodium Chloride (Heparin 97878 Units/250ml 1/2 Normal Saline) 25 ,000 units in 250 mls @ 8 mls/hr IV .Q24H [facility]; 800 UNITS/HR PRN Reason: Protocol Last Admin: 11/30/17 22:00 Dose: 800 units/hr, 8 mls/hr Methylprednisolone (Solu-Medrol) 30 mg IVP Q12 [facility] Metoprolol Tartrate (Lopressor) 50 mg PO BRKDIN [facility] Last Admin: 12/01/17 08:40 Dose: 50 mg Montelukast Sodium (Singulair) 10 mg PO HS [facility] Last Admin: 11/30/17 21:36 Dose: 10 mg Ondansetron HCl (Zofran Inj) 4 mg IVP Q6H PRN PRN Reason: Nausea/Vomiting Oxycodone/Acetaminophen (Percocet 5/325 Mg Tab) 1 tab PO Q6H PRN PRN Reason: Pain, moderate (4-7) Stop: 12/01/17 12:51 Last Admin: 11/30/17 20:07 Dose: 1 tab Pantoprazole Sodium (Protonix Inj) 40 mg IVP Q12 [facility] Last Admin: 11/30/17 21:36 Dose: 40 mg - Labs Labs: 12/01/17 04:00 12/01/17 04:00 PT 14.0 SECONDS (9.4-12.5) H 11/30/17 08:45 INR 1.21 (0.93-1.08) H 11/30/17 08:45 APTT 34.0 Seconds (25.1-36.5) 12/01/17 02:40 - Constitutional Appears: No Acute Distress - Head Exam Head Exam: NORMOCEPHALIC - Eye Exam Eye Exam: Normal appearance - ENT Exam ENT Exam: Mucous Membranes Moist - Respiratory Exam Respiratory Exam: Clear to Ausculation Bilateral, NORMAL BREATHING PATTERN - Cardiovascular Exam Cardiovascular Exam: +S1, +S2 Additional comments: Telemetry NSR - GI/Abdominal Exam GI & Abdominal Exam: Soft - Extremities Exam Extremities Exam: Normal Capillary Refill Additional comments: less swelling on knees 1-2+ - Neurological Exam Neurological Exam: Alert, Awake, Oriented x3 - Psychiatric Exam Psychiatric exam: Normal Affect, Normal Mood - Skin Skin Exam: Intact, Normal Color, Warm Assessment and Plan - Assessment and Plan (Free Text) Assessment: A 62 year old female who came to the ER due to shortness of breath with exertion over the past week. History of COPD,post mitral valve repair , paroxsymal atrial fibrillation on Eliquis. Claimed to have black tarry stools. Admitting hemoglobin 6.7, transfused PRBC and FFP, repeat hemoglobin, 9.7. endoscopy done and large ulcer noted. Held Eliquis, will restart when stable. Started on heparin drip. Plan: Stable cardiac status Telemetry NSR 80-90's Heparin held off for few hours due to elevated PTT then restarted at low dose without boluses On Cardizem CD 120 mg daily, Lopressor 50 mg BID Knee pain less with less swelling, gout started on low dose prednisone EGD showed non bleeding antral gastric ulcer On Protonix IV Post transfusion of PRBC, Stable Hemoglobin 9.6 Continue current medications Continue current treatment Will follow up Plan and treatment discussed with Dr. Rouse
[2017-12-01] MEDS ORDERED: MethylPREDNISolone 40 mg Vial IVP SCH (10:00)
[2017-12-01] MEDS: diltiaZEM 120 mg/24 Hours CD Cap PO SCH (10:27)
[2017-12-01] MEDS: Heparin25000 units/250ml 1/2NS 25,000 UNITS/250 ML BAG IV SCH (10:59)
[2017-12-01] MEDS: Oxycodone/Acetaminophen 5/325 mg Tab PO PRN ×2 (12:44→17:22)
[2017-12-01] MEDS: Sucralfate 1 gm/10 ml Oral Susp UD PO SCH (17:22)
--- NOTE | 2017-12-01 17:38 | PN ---
DATE: 12/01/2017 SUBJECTIVE: This patient was seen and evaluated earlier. Patient is tolerating the diet. No bleeding per rectum. No abdominal pain. Patient was on 800 units of heparin. The last PTT was subtherapeutic. PHYSICAL EXAMINATION: VITAL SIGNS: Temperature 98.5, pulse 82, blood pressure 110/70. HEENT: Atraumatic and anicteric. NECK: Supple. HEART: S1 and S2 heard. LUNGS: Bilateral air entry present. ABDOMEN: Soft. No tenderness. EXTREMITIES: No cyanosis, clubbing. LABORATORY DATA: Hemoglobin 9.5, hematocrit 29.5, WBC 21.4, platelets 227. Creatinine is 1.4, BUN 196. IMPRESSION AND PLAN: 1. This is a 62-year-old patient with a history of paroxysmal atrial fibrillation; mitral valve replacement, bioprosthetic valve on Eliis, was admitted with severe anemia with the hemoglobin of 6.7. Patient did receive 2 units of packed red blood cells and 2 units of fresh frozen plasma. Patient did have an upper gastrointestinal endoscopy, which showed clean based large antral ulceration, biopsies were taken. Patient was started on heparin and patient after 1300 units, which is an appropriate dose further weight based, the PTT was over 150. Subsequently, there is a fixed dose at night, 100 unit was started, but the PTT was on a lower range. Now we would recommend to increase the 800 units to 900 units and follow up the PT, PTT. 2. Patient does have significant elevation of the leukocytosis. White cell count is elevated to 21,000. Abdomen soft, the etiology is unclear. Presently, patient is on prednisone, partly this could contribute to this. However, we need to rule out Clostridium difficile in this patient. We will request stool for Clostridium difficile and also empirically start the patient on p.o. Flagyl. 3. Acute kidney injury and acute elevation of the BUN and creatinine. We will increase the fluid intake. Patient is presently on pantoprazole 40 mg every 12 hours. Close followup of the hemoglobin, hematocrit. 4. We will continue the intravenous heparin. If there is no active bleeding for 48 hours, we will start on p.o. Coumadin; however, the heparin is subtherapeutic dose. We will increase the dose, adjust the dose. In view of this active bleeding, it is reasonable to consider anticoagulation, which can be more controlled. It is reasonable to start on Coumadin, the present regimen starting on newer anticoagulant or her Lovenox. Thank you very much for allowing us to participate in the care of the patient. Sun Ramirez MD
--- NOTE | 2017-12-01 19:02 | CP.PCM.PN ---
Subjective - Date & Time of Evaluation Date of Evaluation: 12/01/17 Time of Evaluation: 18:30 - Subjective Subjective: Code Star called for patient Objective - Vital Signs/Intake and Output Vital Signs (last 24 hours): Temp Pulse Resp BP Pulse Ox 98 F 74 18 133/76 99 12/01/17 17:05 12/01/17 17:22 12/01/17 17:05 12/01/17 17:22 12/01/17 17:05 Intake and Output: 12/01/17 12/02/17 18:59 06:59 Intake Total 300 Output Total 300 Balance 0 - Medications Medications: Current Medications Acetaminophen (Tylenol 325mg Tab) 650 mg PO Q4H PRN PRN Reason: Pain, Mild (1-3) Albuterol/Ipratropium (Duoneb 3 Mg/0.5 Mg (3 Ml) Ud) 3 ml IH [id number] PRN PRN Reason: Shortness of Breath Diltiazem HCl (Cardizem Cd) 120 mg PO DAILY [facility] Last Admin: 12/01/17 10:27 Dose: 120 mg Diphenhydramine HCl (Benadryl) 25 mg PO Q6 PRN PRN Reason: Allergy symptoms Last Admin: 11/30/17 09:58 Dose: 25 mg Heparin Sodium/Sodium Chloride (Heparin 90288 Units/250ml 1/2 Normal Saline) 25 ,000 units in 250 mls @ 9 mls/hr IV .Q24H [facility]; 900 UNITS/HR PRN Reason: Protocol Last Admin: 12/01/17 10:59 Dose: 900 units/hr, 9 mls/hr Metoprolol Tartrate (Lopressor) 50 mg PO BRKDIN [facility] Last Admin: 12/01/17 17:22 Dose: 50 mg Metronidazole (Flagyl) 500 mg PO Q8 [facility] PRN Reason: Protocol Last Admin: 12/01/17 14:13 Dose: 500 mg Montelukast Sodium (Singulair) 10 mg PO HS [facility] Last Admin: 11/30/17 21:36 Dose: 10 mg Ondansetron HCl (Zofran Inj) 4 mg IVP Q6H PRN PRN Reason: Nausea/Vomiting Oxycodone/Acetaminophen (Percocet 5/325 Mg Tab) 1 tab PO Q4H PRN PRN Reason: Pain, severe (8-10) Stop: 12/04/17 12:55 Last Admin: 12/01/17 17:22 Dose: 1 tab Pantoprazole Sodium (Protonix Inj) 40 mg IVP Q12 [facility] Last Admin: 12/01/17 10:26 Dose: 40 mg Sucralfate (Carafate Oral Susp) 1 gm PO BID [facility] Last Admin: 12/01/17 17:22 Dose: 1 gm Tramadol HCl (Ultram) 50 mg PO TID PRN PRN Reason: Pain, moderate (4-7) - Labs Labs: 12/01/17 04:00 12/01/17 04:00 PT 14.0 SECONDS (9.4-12.5) H 11/30/17 08:45 INR 1.21 (0.93-1.08) H 11/30/17 08:45 APTT 35.7 Seconds (25.1-36.5) 12/01/17 15:05 - Constitutional Appears: Non-toxic, No Acute Distress - Head Exam Head Exam: ATRAUMATIC, NORMAL INSPECTION, NORMOCEPHALIC - Eye Exam Eye Exam: EOMI, Normal appearance - ENT Exam ENT Exam: Mucous Membranes Moist - Respiratory Exam Respiratory Exam: Clear to Ausculation Bilateral, NORMAL BREATHING PATTERN - Cardiovascular Exam Cardiovascular Exam: REGULAR RHYTHM, +S1, +S2 - GI/Abdominal Exam GI & Abdominal Exam: Soft. absent: Tenderness - Extremities Exam Extremities Exam: Tenderness. absent: Pedal Edema Additional comments: difficulty flexing knees bilaterally. unable to stand up on her own - Neurological Exam Neurological Exam: Alert, Awake, Oriented x3 Assessment and Plan - Assessment and Plan (Free Text) Plan: Code star called by nurses for unwitnessed fall. Patient was seen evaluated. Patient states she was in chair and tried ot get back in to bed when she fell. She said she fell non her knees, denied hitting her head on the floor. Before the fall she stated she felt dizziness. Denied any chest pain, SOB, palpitations , diaphoresis. Patient did not lose consciousness. AAOx3 and responding appropriately, no focal weakness. Plan: -CT head -LS xray -orthostatics -bilateral knee xrays -review labs from today -continue to monitor -vital signs
--- NOTE | 2017-12-01 20:13 | CT ---
EXAM: CT Head Without Intravenous Contrast EXAM DATE/TIME: 12/01/2017 6:27 PM CLINICAL HISTORY: The patient age is 62 years old and is female; Injury or trauma; Fall; Initial encounter; Blunt trauma (contusions or hematomas); Consciousness not specified; Injury date: 12-01-17; Additional info: Unwitnessed fall Facility exam id and description: Ct heads head w/o contrast TECHNIQUE: Axial computed tomography images of the head/brain without intravenous contrast. All CT scans at this facility use one or more dose reduction techniques, viz.: automated exposure control; ma/kV adjustment per patient size (including targeted exams where dose is matched to indication; i.e. head); or iterative reconstruction technique. Coronal and sagittal reformatted images were created and reviewed. COMPARISON: No relevant prior studies available. FINDINGS: Brain: There are scattered foci of hypodensity within the cerebral white matter, likely representing small vessel ischemic disease in a patient this age. The acuity of the white matter disease is indeterminate. The white-ohara differentiation is preserved demonstrating no acute territorial type infarct. No acute intracranial hemorrhage is seen. A small cavum septum pellucidum variant is visualized. Midline shift: There is no midline shift. Ventricles: There is mild prominence of the ventricles and sulci, compatible with atrophy. Bones/joints: The calvarium demonstrates no evidence for a depressed fracture. There is a small nonspecific sclerotic lesion within the left frontal skull. Soft tissues: A few hyperdense scalp calcifications are visualized. Vasculature: There is atherosclerotic calcification of the intracranial internal carotid arteries and distal vertebral arteries. Sinuses: A small mucous retention cyst or polyp is visualized within the right maxillary sinus. Mastoid air cells: There is minimal mucosal thickening of the left mastoid air cells. IMPRESSION: 1. No acute intracranial hemorrhage or acute territorial type infarct. 2. There are scattered foci of hypodensity within the cerebral white matter, likely representing small vessel ischemic disease in a patient this age. 3. Mild atrophy. 4. Incidental/non-acute findings are described above.
--- NOTE | 2017-12-01 20:28 | PN ---
DATE: 12/01/2017 This is [facility] [place]'s hospital visit on the telemetry floor. For Dr. Jimenez. SUBJECTIVE: The patient is a 62-year-old female seen sitting up in bed, reports she has not been out of bed for a few days now, with recommendations to do so at least from bed to chair in a sitting position. We also recommended a spirometer which will be ordered for. With this, the patient's hemoglobin was 6.7 on admission; with transfusion of 3 units of packed cells, the hemoglobin is 9.5 today. Her white blood cell count however did jump from 11.5 to 21.4 after steroids were begun yesterday, IV solu-medrol, with the patient noted had a recent GI bleed with a nonbleeding ulcer noted on EGD, with patient now on low-dose heparin as her Eliquis has been on hold with recommendations as per Dr. Ramirez to keep the heparin low flow for a few days until oral anticoagulation may be restarted, possibly with Coumadin as the values of the INR may be checked to make sure it is not over the values for therapeutic range. With this, the patient is now reporting that she had some dark stool earlier today; however, her diet was just advanced with the patient otherwise in no acute distress. She does not want any injection at her knee because the needle was too big, and therefore IV steroids were begun which as per Dr. Jimenez's recommendation will be discontinued in favor of Percocet for severe pain, tramadol for moderate pain and Tylenol for mild pain, with the patient to be out of bed to the chair as indicated. PHYSICAL EXAMINATION VITAL SIGNS: Temperature 97, pulse 74, respirations 16, blood pressure 126/78, with a pulse ox of 93%. HEENT: Unremarkable. NECK: Supple. HEART: Regular rate, occasional ectopic beat. LUNGS: Clear. ABDOMEN: Soft and nontender. EXTREMITIES: Decreased range of motion of the left knee with tenderness to gentle palpation. NEUROLOGIC: Awake, alert and oriented. SKIN: Otherwise warm, dry and clear. LABORATORY DATA: The patient's labs were done, white blood cell count of 21.4, up from 11.5 yesterday after steroids were begun; hemoglobin of 9.5, 9.7 yesterday; hematocrit of 29.5, platelet count of 227,000, with a normal chem metabolic panel except for creatinine of 1.4, up from 1 yesterday. Her PTT was noted to be 35.9, with recommended increase from 800 units per hour to 900 units per hour by Dr. Raimrez with the PTT value to be noted and within therapeutic range and not supratherapeutic, with no boluses recommended for this patient. ASSESSMENT: The assessment for this patient is that of gastrointestinal bleed with severe symptomatic anemia status post transfusion, esophagogastroduodenoscopy with nonbleeding antral ulcer, hypertension, chronic obstructive pulmonary disease, paroxysmal atrial fibrillation, degenerative join disease with knee pain, gouty arthritis. PLAN: The plan for this patient is for her to be out of bed to the chair, spirometer at the bedside. We will also stop the IV steroids in favor of pain regimen as listed above. We will continue the heparin drip with no boluses as per Dr. Ramirez's recommendation with eventually starting possibly of Coumadin as the INR may be monitored to avoid excessive anticoagulation in this sensitive patient. In the interm, we will also recommend Carafate 1 g twice a day to be begun. The prognosis for this patient is guarded. This is a complex patient with a comprehensive medically necessary and appropriate visit carried out in excess of 40 minutes in [id number] time and in speaking with other doctors regarding her care, nursing staff with adjustment of her medications as listed above. Her questions were answered to her satisfaction. Larry Mcdaniel MD
[2017-12-01] MEDS ORDERED: Lidocaine/Prilocaine 2.5%-2.5% Cream(30 gm) TOP ONE (23:10)
[2017-12-02 05:24] LABS: GRAN # 16.4 (1.4-6.5); GRAN % 91.7 % (50.0-68.0); HEMOGLOBIN 9.4 g/dL (12.0-16.0); LYMPH # 0.4 (1.2-3.4); LYMPH % 2.5 % (22.0-35.0); MEAN CELL VOLUME 88.4 fl (80.0-105.0); MEAN CORPUSCULAR HEMOGLOBIN 30.2 pg (25.0-35.0); MEAN CORPUSCULAR HGB CONC 34.2 g/dl (31.0-37.0); MEAN PLATELET VOLUME 10.2 fl (7.0-11.0); MONO % 5.8 % (1.0-6.0); RBC 3.11 10^6/uL (3.5-6.1); WHITE BLOOD COUNT 17.9 10^3/ul (4.5-11.0)
[2017-12-02 05:30] LABS: INR 1.09 (0.93-1.08); PARTIAL THROMBOPLASTIN TIME 76.4 Seconds (25.1-36.5); PROTHROMBIN TIME 12.6 SECONDS (9.4-12.5)
[2017-12-02 05:51] LABS: ALB/GLOB RATIO 1.1 (1.1-1.8); ALBUMIN 3.7 g/dL (3.0-4.8); CALCIUM 9.5 mg/dL (8.4-10.5)
--- NOTE | 2017-12-02 08:43 | CP.PCM.PN ---
Subjective - Date & Time of Evaluation Date of Evaluation: 12/02/17 Time of Evaluation: 06:20 - Subjective Subjective: Awake,Alert,claimed to have tarry stools last night, no distress, feels much better today,less swelling on knees Reason for consultation and follow up: cardiac evaluation,shortness of breath with exertion over the past week. History of COPD,post mitral valve repair, paroxsymal atrial fibrillation on Eliquis, Seen and examined by me and Dr. Rouse Objective - Vital Signs/Intake and Output Vital Signs (last 24 hours): Temp Pulse Resp BP Pulse Ox 97.7 F 84 19 126/85 99 12/02/17 06:00 12/02/17 06:00 12/02/17 06:00 12/02/17 06:00 12/02/17 06:00 Intake and Output: 12/02/17 12/02/17 06:59 18:59 Intake Total 317 50 Output Total 2 Balance 315 50 - Medications Medications: Current Medications Acetaminophen (Tylenol 325mg Tab) 650 mg PO Q4H PRN PRN Reason: Pain, Mild (1-3) Albuterol/Ipratropium (Duoneb 3 Mg/0.5 Mg (3 Ml) Ud) 3 ml IH [id number] PRN PRN Reason: Shortness of Breath Diltiazem HCl (Cardizem Cd) 120 mg PO DAILY [facility] Last Admin: 12/01/17 10:27 Dose: 120 mg Diphenhydramine HCl (Benadryl) 25 mg PO Q6 PRN PRN Reason: Allergy symptoms Last Admin: 11/30/17 09:58 Dose: 25 mg Heparin Sodium/Sodium Chloride (Heparin 77104 Units/250ml 1/2 Normal Saline) 25 ,000 units in 250 mls @ 9 mls/hr IV .Q24H [facility]; 900 UNITS/HR PRN Reason: Protocol Last Titration: 12/02/17 07:54 Dose: 800 units/hr, 8 mls/hr Metoprolol Tartrate (Lopressor) 50 mg PO BRKDIN [facility] Last Admin: 12/02/17 07:50 Dose: 50 mg Metronidazole (Flagyl) 500 mg PO Q8 [facility] PRN Reason: Protocol Last Admin: 12/02/17 06:23 Dose: 500 mg Montelukast Sodium (Singulair) 10 mg PO HS [facility] Last Admin: 12/01/17 22:40 Dose: 10 mg Ondansetron HCl (Zofran Inj) 4 mg IVP Q6H PRN PRN Reason: Nausea/Vomiting Oxycodone/Acetaminophen (Percocet 5/325 Mg Tab) 1 tab PO Q4H PRN PRN Reason: Pain, severe (8-10) Stop: 12/04/17 12:55 Last Admin: 12/01/17 17:22 Dose: 1 tab Pantoprazole Sodium (Protonix Inj) 40 mg IVP Q12 [facility] Last Admin: 12/01/17 22:41 Dose: 40 mg Sucralfate (Carafate Oral Susp) 1 gm PO BID [facility] Last Admin: 12/01/17 17:22 Dose: 1 gm Tramadol HCl (Ultram) 50 mg PO TID PRN PRN Reason: Pain, moderate (4-7) - Labs Labs: 12/02/17 04:40 12/02/17 04:40 PT 12.6 SECONDS (9.4-12.5) H 12/02/17 04:40 INR 1.09 (0.93-1.08) H 12/02/17 04:40 APTT 76.4 Seconds (25.1-36.5) H 12/02/17 04:40 - Constitutional Appears: No Acute Distress - Head Exam Head Exam: NORMOCEPHALIC - Eye Exam Eye Exam: Normal appearance - ENT Exam ENT Exam: Mucous Membranes Moist - Respiratory Exam Respiratory Exam: Clear to Ausculation Bilateral, NORMAL BREATHING PATTERN - Cardiovascular Exam Cardiovascular Exam: REGULAR RHYTHM, +S1, +S2 Additional comments: Telemetry NSR - GI/Abdominal Exam GI & Abdominal Exam: Soft, Normal Bowel Sounds - Extremities Exam Extremities Exam: Normal Capillary Refill - Neurological Exam Neurological Exam: Alert, Awake, Oriented x3 - Psychiatric Exam Psychiatric exam: Normal Affect, Normal Mood - Skin Skin Exam: Intact, Normal Color, Warm Assessment and Plan - Assessment and Plan (Free Text) Assessment: A 62 year old female who came to the ER due to shortness of breath with exertion over the past week. History of COPD,post mitral valve repair , paroxsymal atrial fibrillation on Eliquis. Claimed to have black tarry stools. Admitting hemoglobin 6.7, transfused PRBC and FFP, repeat hemoglobin, 9.7. endoscopy done and large ulcer noted. Held Eliquis, will restart when stable. Started on heparin drip. Plan: Claimed to have tarry stools last night Hemoglobin/hematocrit stable Patient was just started on regular diet (probably residual) Will monitor closely, GI on consult Had an incident of fall yesterday, trying to get up and knees gave up some lightheadedness, CT of head negative for bleeding Will order orthostatic BP Heparin at 800 units/hour and PTT- 76.4 therapeutic level Stable cardiac status Telemetry NSR 80-90's On Cardizem CD 120 mg daily, Lopressor 50 mg BID Knee pain less with less swelling, gout started on low dose prednisone EGD showed non bleeding antral gastric ulcer On Protonix IV and Carafate Continue current medications Continue current treatment Will follow up Plan and treatment discussed with Dr. Rouse
[2017-12-02] MEDS: diltiaZEM 120 mg/24 Hours CD Cap PO SCH (09:32)
[2017-12-02] MEDS: Sucralfate 1 gm/10 ml Oral Susp UD PO SCH ×2 (09:32→17:34)
[2017-12-02] MEDS: Oxycodone/Acetaminophen 5/325 mg Tab PO PRN (09:36)
--- NOTE | 2017-12-02 10:52 | RAD ---
PROCEDURE: Radiographs of the Lumbar Spine. HISTORY: Status post fall COMPARISON: No prior. FINDINGS: BONES: No acute compression fractures nor retropulsed fragments. Vertebral bodies exhibit normal stature. There is a moderate levoscoliosis centered at the L3-L4 level. Vertebral bodies otherwise exhibit normal alignment. Facets normally aligned. DISC SPACES: Maintained disc space heights maintained. OTHER FINDINGS: Metallic clips right upper quadrant of the abdomen consistent with prior cholecystectomy IMPRESSION: No acute fractures. . Moderate levoscoliosis as detailed above.
--- NOTE | 2017-12-02 11:05 | RAD ---
PROCEDURE: Bilateral Knee Radiographs. HISTORY: Status post fall COMPARISON: None. FINDINGS: BONES: No evidence of acute displaced fracture nor dislocation. The osseous structures appear intact. No cortical destructive changes. Next JOINTS: Degenerative osteoarthritis right knee most notably affecting the medial and patellofemoral compartments. Minor degenerative osteoarthritis medial and patellofemoral compartments left main SOFT TISSUES: There are several us mall soft tissue calcifications within the anterior soft tissues at the level of the left distal femur and proximal tibia as well as and right pretibial soft tissues JOINT EFFUSION: Moderate to large-sized bilateral effusions left greater than right. . OTHER FINDINGS: None. IMPRESSION: No acute fractures. Degenerative osteoarthritis both knees right greater than left. Moderately large bilateral effusions left greater than right.
[2017-12-02] MEDS: Heparin25000 units/250ml 1/2NS 25,000 UNITS/250 ML BAG IV SCH (11:37)
[2017-12-02] MEDS: Sodium Chloride 0.45% 1,000 ML IV SCH (13:27)
--- NOTE | 2017-12-02 16:29 | PN ---
DATE: 12/02/2017 This is [facility]'s [facility] hospital visit on the telemetry floor. For Dr. Jimenez. SUBJECTIVE: The patient is a 62-year-old female seen sitting up in bed, reporting that she had tried to be out of bed to the chair yesterday; however, her was not within her reach. When she reached for it, she slipped out of the chair and was found on the floor with no acute injury. She reports that her knee is still painful despite having IV steroids given yesterday. The steroids have been discontinued as the patient recently had peptic ulcer findings as per EGD and is now on anticoagulants including heparin. At present, the patient is in no acute distress, resting comfortably, tolerating her advanced diet now; however, her liquid intake is not that good she reports with possible mild dehydration accompanying this. After conversation with Dr. Ramirez and Dr. Guerra, it was recommended to continue her heparin low flow with no boluses also as per reconsult with Dr. Vines for an injection to her knee. We will also hold aspirin for the time being until her injection is done. OBJECTIVE PHYSICAL EXAMINATION: VITAL SIGNS: Temperature 97.1, pulse 72, respirations 19, blood pressure 119/75, pulse ox 99%. HEENT: Unremarkable. NECK: Supple. HEART: Regular rate. Occasional ectopic beat. LUNGS: Minimal decreased breath sounds at the bases. ABDOMEN: Soft, nontender. EXTREMITIES: Decreased range of motion to the knee on the left. NEUROLOGIC: Awake and alert. SKIN: Otherwise, warm, dry and clear. LABORATORY DATA: The patient's labs were done. White blood cell count of 17.9 after IV steroids were recently given and discontinued. Hemoglobin of 9.4, hematocrit of 27.5, platelet count of 286,000. Her PTT was 76 with adjustment made to the IV heparin she is receiving. Chem metabolic panel showed a BUN of 31, creatinine of 1.7 with IV fluids to be restarted with Renal consult recommended. The patient did have an x-ray of her lumbar spine done yesterday. It was read as no acute fractures. Moderate levoscoliosis. She also had an x-ray of the knees bilateral showing no acute fracture, degenerative arthritis of both knees, right greater than left, moderately large bilateral effusions, left greater than right. She had a CAT scan of her head done yesterday showing no acute intracranial hemorrhage or infarct. ASSESSMENT: The assessment for this patient is that of gastrointestinal bleed with nonbleeding antral ulcer on esophagogastroduodenoscopy; severe symptomatic anemia, status post transfusion, 3 units of packed cells; hypertension; chronic obstructive pulmonary disease; paroxysmal atrial fibrillation; degenerative joint disease with knee pain; gouty arthritis; status post fall with no acute trauma. PLAN: Plan for this patient after conversation with Dr. Jimenez is to continue the present medical regimen with the heparin low flow to continue with considerations for beginning Coumadin once her injection with Dr. Vines is completed. We will continue present medical regimen as per Dr. Ramirez and Dr. Guerra with IV fluids being begun along with consult with Dr. Hernandez, Renal for her elevated BUN and creatinine. This is a complex patient with a comprehensive medically necessary and appropriate visit carried out in excess of 40 minutes with at least half [id number] time also with conversations held with Dr. Guerra, Dr. Ramirez regarding her care, also the patient's nurse, also case was discussed with her. Larry Mcdaniel MD
[2017-12-03] MEDS: Sodium Chloride 0.45% 1,000 ML IV SCH (03:14)
[2017-12-03 04:36] LABS: BASO # 0.01 K/mm3 (0.0-2.0); BASO % 0.1 % (0.0-3.0); EOS # 0.1 (0.0-0.7); EOS % 0.4 % (1.5-5.0); GRAN # 9.08 (1.4-6.5); GRAN % 81.1 % (50.0-68.0); HEMOGLOBIN 9.1 g/dL (12.0-16.0); LYMPH # 1.3 (1.2-3.4); LYMPH % 11.6 % (22.0-35.0); MEAN CORPUSCULAR HEMOGLOBIN 29.5 pg (25.0-35.0); MEAN CORPUSCULAR HGB CONC 33.6 g/dl (31.0-37.0); MEAN PLATELET VOLUME 9.8 fl (7.0-11.0); MONO # 0.8 (0.1-0.6); MONO % 6.8 % (1.0-6.0); RBC 3.08 10^6/uL (3.5-6.1); RED CELL DISTRIBUTION WIDTH 15.2 % (11.5-14.5); WHITE BLOOD COUNT 11.2 10^3/ul (4.5-11.0)
[2017-12-03 04:38] LABS: ALB/GLOB RATIO 1.1 (1.1-1.8); ALBUMIN 3.3 g/dL (3.0-4.8); CALCIUM 8.9 mg/dL (8.4-10.5)
[2017-12-03 06:18] VITALS: O2SAT 100
--- NOTE | 2017-12-03 07:13 | CP.PCM.PN ---
Subjective - Date & Time of Evaluation Date of Evaluation: 12/03/17 Time of Evaluation: 06:20 - Subjective Subjective: Awake,Alert,claimed to loose tarry stools last night , no distress, feels much better today,less swelling on knees Reason for consultation and follow up: cardiac evaluation,shortness of breath with exertion over the past week. History of COPD,post mitral valve repair, paroxsymal atrial fibrillation on Eliquis, Seen and examined by me and Dr. Beebe Objective - Vital Signs/Intake and Output Vital Signs (last 24 hours): Temp Pulse Resp BP Pulse Ox 97.9 F 77 20 144/81 100 12/03/17 06:00 12/03/17 06:00 12/03/17 06:00 12/03/17 06:00 12/03/17 06:00 Intake and Output: 12/03/17 12/03/17 06:59 18:59 Intake Total 1436 Output Total 3 Balance 1433 - Medications Medications: Current Medications Acetaminophen (Tylenol 325mg Tab) 650 mg PO Q4H PRN PRN Reason: Pain, Mild (1-3) Albuterol/Ipratropium (Duoneb 3 Mg/0.5 Mg (3 Ml) Ud) 3 ml IH [id number] PRN PRN Reason: Shortness of Breath Aspirin (Ecotrin) 81 mg PO DAILY [facility] Last Admin: 12/02/17 17:34 Dose: 81 mg Diltiazem HCl (Cardizem Cd) 120 mg PO DAILY [facility] Last Admin: 12/02/17 09:32 Dose: 120 mg Diphenhydramine HCl (Benadryl) 25 mg PO Q6 PRN PRN Reason: Allergy symptoms Last Admin: 11/30/17 09:58 Dose: 25 mg Heparin Sodium/Sodium Chloride (Heparin 07713 Units/250ml 1/2 Normal Saline) 25 ,000 units in 250 mls @ 9 mls/hr IV .Q24H [facility]; 900 UNITS/HR PRN Reason: Protocol Last Admin: 12/02/17 11:37 Dose: Not Given Sodium Chloride (Sodium Chloride 0.45%) 1,000 mls @ 70 mls/hr IV .[id number] [facility] Last Admin: 12/03/17 03:14 Dose: 70 mls/hr Metoprolol Tartrate (Lopressor) 50 mg PO BRKDIN [facility] Last Admin: 12/02/17 17:35 Dose: 50 mg Metronidazole (Flagyl) 500 mg PO Q8 [facility] PRN Reason: Protocol Last Admin: 12/03/17 05:49 Dose: 500 mg Montelukast Sodium (Singulair) 10 mg PO HS [facility] Last Admin: 12/02/17 22:26 Dose: 10 mg Ondansetron HCl (Zofran Inj) 4 mg IVP Q6H PRN PRN Reason: Nausea/Vomiting Oxycodone/Acetaminophen (Percocet 5/325 Mg Tab) 1 tab PO Q4H PRN PRN Reason: Pain, severe (8-10) Stop: 12/04/17 12:55 Last Admin: 12/02/17 09:36 Dose: 1 tab Pantoprazole Sodium (Protonix Inj) 40 mg IVP Q12 [facility] Last Admin: 12/02/17 22:26 Dose: 40 mg Sucralfate (Carafate Oral Susp) 1 gm PO BID [facility] Last Admin: 12/02/17 17:34 Dose: 1 gm Tramadol HCl (Ultram) 50 mg PO TID PRN PRN Reason: Pain, moderate (4-7) - Labs Labs: 12/03/17 04:15 12/03/17 04:15 PT 12.6 SECONDS (9.4-12.5) H 12/02/17 04:40 INR 1.09 (0.93-1.08) H 12/02/17 04:40 APTT 57.9 Seconds (25.1-36.5) H 12/03/17 04:15 - Constitutional Appears: No Acute Distress - Head Exam Head Exam: NORMOCEPHALIC - Eye Exam Eye Exam: Normal appearance - ENT Exam ENT Exam: Mucous Membranes Moist - Respiratory Exam Respiratory Exam: Clear to Ausculation Bilateral, NORMAL BREATHING PATTERN - Cardiovascular Exam Cardiovascular Exam: REGULAR RHYTHM, +S1, +S2 Additional comments: NSR telemetry - GI/Abdominal Exam GI & Abdominal Exam: Soft, Normal Bowel Sounds - Extremities Exam Extremities Exam: Normal Capillary Refill Additional comments: knees less swelling 1+ - Neurological Exam Neurological Exam: Alert, Awake, Oriented x3 - Psychiatric Exam Psychiatric exam: Normal Affect, Normal Mood - Skin Skin Exam: Intact, Normal Color, Warm Assessment and Plan - Assessment and Plan (Free Text) Assessment: A 62 year old female who came to the ER due to shortness of breath with exertion over the past week. History of COPD,post mitral valve repair , paroxsymal atrial fibrillation on Eliquis. Claimed to have black tarry stools. Admitting hemoglobin 6.7, transfused PRBC and FFP, repeat hemoglobin, 9.7. endoscopy done and large ulcer noted. Held Eliquis, will restart when stable. Started on heparin drip. Plan: Hemoglobin/hematocrit stable today 9.1 Claimed to have loose tarry stools last night GI on consult Heparin at low dose, convert to Coumadin once knee injection completed Stable cardiac status Telemetry NSR 80-90's On Cardizem CD 120 mg daily, Lopressor 50 mg BID Continue current medications Continue current treatment Will follow up Plan and treatment discussed with Dr. Beebe
[2017-12-03] MEDS ORDERED: Potassium Chloride 20 mEq/15 ml LIQ UD PO STA (07:41)
[2017-12-03] MEDS: Sucralfate 1 gm/10 ml Oral Susp UD PO SCH ×2 (09:09→18:04)
--- NOTE | 2017-12-03 09:09 | CON ---
DATE: 12/02/2017 HISTORY OF PRESENT ILLNESS: This is a 62-year-old black female with a past medical history of COPD; AFib, on Eliquis; came to the hospital with shortness of breath, which was worsening over 3 to 4 days and was unable to walk for a block and the patient also reports of a dark stool and mucosal bleeding in the mouth and nose and the patient went for colonoscopy. Called to evaluate her because of her right-hand weakness going on for 2 weeks. Called to evaluate the patient. PAST MEDICAL HISTORY: Mitral valve disease; paroxysmal atrial fibrillation, on Eliquis. PAST SURGICAL HISTORY: Mitral valve replacement. REVIEW OF SYSTEMS: A 10-point review of systems was negative. ALLERGIES: CINNAMON. PHYSICAL EXAMINATION: HEENT: Normocephalic, atraumatic. NECK: Supple. NEUROLOGIC: Alert, awake, orientated x3. No aphasia. Cranial nerves II through XII are tested. Pupils reactive. EOM intact. Visual whaley full. No facial asymmetry. Tongue midline. Motor: Moves all the extremities equally. Tone normal. Deep tendon reflexes are1+. Both plantars are downgoing. Sensory appears intact. Cerebellar, gait deferred. IMPRESSION: Right-hand weakness and numbness for 2 weeks and possibly had a transient ischemic attack and symptoms are better. The patient was already on Eliquis and gastrointestinal workup in progress. Continue present management. We will follow up. Cheo Nguyen MD
[2017-12-03] MEDS: diltiaZEM 120 mg/24 Hours CD Cap PO SCH (09:12)
[2017-12-03] MEDS ORDERED: Triamcinolone Acetonide 40 mg/mL Inj IU ONE ×2 (09:19→09:52)
[2017-12-03] MEDS: Oxycodone/Acetaminophen 5/325 mg Tab PO PRN (09:19)
[2017-12-03] MEDS ORDERED: Bupivacaine 0.25% Inj(30mL) IJ ONE ×2 (09:20→09:53)
[2017-12-03 11:24] LABS: FLUID TYPE SYNOVIAL FLUID
[2017-12-03 11:46] LABS: SF GROSS APPEARANCE TURBID (CLEAR)
[2017-12-03 11:48] LABS: SF GROSS APPEARANCE TURBID (CLEAR)
[2017-12-03] MEDS: Heparin25000 units/250ml 1/2NS 25,000 UNITS/250 ML BAG IV SCH ×2 (12:39→15:19)
--- NOTE | 2017-12-03 13:31 | CP.PCM.PN ---
Subjective - Date & Time of Evaluation Date of Evaluation: 12/03/17 Time of Evaluation: 08:40 - Subjective Subjective: Heme/Onc Progress Note for Dr. Jimenez Patient was seen and examined at bedside. Patient has mild complaints of knee discomfort and noted loose bm that were black in nature. Patient denied fever, chills, shortness of breath, chest pains, abdominal pains, nausea, vomiting, diarrhea, constipation, or bleeding. Objective - Vital Signs/Intake and Output Vital Signs (last 24 hours): Temp Pulse Resp BP Pulse Ox 97.9 F 100 H 20 129/65 100 12/03/17 06:00 12/03/17 10:00 12/03/17 06:00 12/03/17 09:12 12/03/17 06:00 Intake and Output: 12/03/17 12/03/17 06:59 18:59 Intake Total 1436 Output Total 3 Balance 1433 - Medications Medications: Current Medications Acetaminophen (Tylenol 325mg Tab) 650 mg PO Q4H PRN PRN Reason: Pain, Mild (1-3) Albuterol/Ipratropium (Duoneb 3 Mg/0.5 Mg (3 Ml) Ud) 3 ml IH [id number] PRN PRN Reason: Shortness of Breath Aspirin (Ecotrin) 81 mg PO DAILY [facility] Last Admin: 12/03/17 09:12 Dose: 81 mg Diltiazem HCl (Cardizem Cd) 120 mg PO DAILY [facility] Last Admin: 12/03/17 09:12 Dose: 120 mg Diphenhydramine HCl (Benadryl) 25 mg PO Q6 PRN PRN Reason: Allergy symptoms Last Admin: 11/30/17 09:58 Dose: 25 mg Heparin Sodium/Sodium Chloride (Heparin 02306 Units/250ml 1/2 Normal Saline) 25 ,000 units in 250 mls @ 9 mls/hr IV .Q24H GUALBERTO; 900 UNITS/HR PRN Reason: Protocol Last Admin: 12/03/17 12:39 Dose: Not Given Sodium Chloride (Sodium Chloride 0.45%) 1,000 mls @ 70 mls/hr IV .[id number] [facility] Last Admin: 12/03/17 03:14 Dose: 70 mls/hr Metoprolol Tartrate (Lopressor) 50 mg PO BRKDIN [facility] Last Admin: 12/03/17 09:11 Dose: 50 mg Metronidazole (Flagyl) 500 mg PO Q8 [facility] PRN Reason: Protocol Last Admin: 12/03/17 05:49 Dose: 500 mg Montelukast Sodium (Singulair) 10 mg PO HS [facility] Last Admin: 12/02/17 22:26 Dose: 10 mg Ondansetron HCl (Zofran Inj) 4 mg IVP Q6H PRN PRN Reason: Nausea/Vomiting Oxycodone/Acetaminophen (Percocet 5/325 Mg Tab) 1 tab PO Q4H PRN PRN Reason: Pain, severe (8-10) Stop: 12/04/17 12:55 Last Admin: 12/03/17 09:19 Dose: 1 tab Pantoprazole Sodium (Protonix Inj) 40 mg IVP Q12 [facility] Last Admin: 12/03/17 09:12 Dose: 40 mg Sucralfate (Carafate Oral Susp) 1 gm PO BID [facility] Last Admin: 12/03/17 09:09 Dose: 1 gm Tramadol HCl (Ultram) 50 mg PO TID PRN PRN Reason: Pain, moderate (4-7) - Labs Labs: 12/03/17 04:15 12/03/17 04:15 PT 12.6 SECONDS (9.4-12.5) H 12/02/17 04:40 INR 1.09 (0.93-1.08) H 12/02/17 04:40 APTT 57.9 Seconds (25.1-36.5) H 12/03/17 04:15 - Constitutional Appears: No Acute Distress - Head Exam Head Exam: ATRAUMATIC, NORMAL INSPECTION, NORMOCEPHALIC - Eye Exam Eye Exam: EOMI, Normal appearance, PERRL Pupil Exam: NORMAL ACCOMODATION, PERRL - ENT Exam ENT Exam: Mucous Membranes Moist, Normal Exam - Respiratory Exam Respiratory Exam: Clear to Ausculation Bilateral, NORMAL BREATHING PATTERN - Cardiovascular Exam Cardiovascular Exam: REGULAR RHYTHM, +S1, +S2. absent: Murmur - GI/Abdominal Exam GI & Abdominal Exam: Soft, Normal Bowel Sounds. absent: Tenderness - Extremities Exam Extremities Exam: Full ROM, Normal Capillary Refill, Normal Inspection. absent : Joint Swelling, Pedal Edema - Back Exam Back Exam: NORMAL INSPECTION - Neurological Exam Neurological Exam: Alert, Awake, CN II-XII Intact, Normal Gait, Oriented x3 - Psychiatric Exam Psychiatric exam: Normal Affect, Normal Mood - Skin Skin Exam: Dry, Intact, Normal Color, Warm Assessment and Plan - Assessment and Plan (Free Text) Assessment: 62 F with a PMHx of severe mitral regurgitation s/p open heart surgery and repair with MVR biprosthetic, history of paroxysmal afib (on eliquis), and non obstructing CAD , COPD presenting to [facility] with complaints of shortness of breath and black tarry stools, loose in nature admitted to ICU for symptomatic anemia with a Hgb 6.7 likely secondary to GI bleed. Patient was transfused 3u pRBC and 2 u FFP. Repeat hemoglobin, 9.7, stable H&H currently. endoscopy done and large ulcer noted. Held Eliquis, will restart when stable. Cardiology Dr Beebe consulted. Patient is on protonix drip. As per GI, will continue full liquid diet, start heparin IV drip, NO boluses, monitor coags and titrate as needed without boluses. No oral AC at this time will discuss with Dr. Beebe considering AC at home and possible watchman device.
[2017-12-03] MEDS ORDERED: Potassium Chloride 20 MEQ in Sodium Chloride 0.45% 1,000 ML IV SCH (13:44)
[2017-12-03 13:45] VITALS: RESP 18
--- NOTE | 2017-12-03 14:06 | PN ---
DATE: 11/30/2017 SUBJECTIVE: The patient complained of knee pain. The Orthopedic tried to tap the knee, she refused. She was so panicky and she does not want it. Otherwise, the patient has no new complaints. PHYSICAL EXAMINATION: VITAL SIGNS: Her temperature 97.8, heart rate 95, blood pressure 141/87, respirations 18, sat 97%. HEAD AND NECK: Normal. No JVD. No thyromegaly. CHEST: Clear bilaterally. CARDIAC: First sound and second sound normal. ABDOMEN: Soft and nontender. EXTREMITIES: No edema. NEUROLOGIC: Normal. EXTREMITIES: Bilateral knees, left knee is worse than right, it is warm, swollen, tender. There is effusion consistent with acute arthritis of both knees. LABORATORY STUDY: Shows white count 11.5, hemoglobin 9.7, hematocrit 30.2, platelets 212. Chemistry shows sodium 138, potassium 3.8, chloride 103, bicarb 23. BUN 12, creatinine 1. Liver function test is normal. The patient is started on heparin IV. IMPRESSION AND PLAN: 1. Acute gouty or pseudogout arthritis, cannot do tapping. The patient has peptic ulcer disease, which lowered her hemoglobin and was bleeding. At this time, we will give the patient IV Solu-Medrol 40 now and 30 every 12 hours to help her joint arthritis, which is most likely pseudogout arthritis as in the past. 2. Acute gastrointestinal bleed, resolved; peptic ulcer disease, no active bleeding. Continue Protonix and Pepcid. 3. History of cardiac disease, mitral valve replacement. We will follow recommendation by Cardiology, probably should go back on Coumadin plus baby aspirin as she was taking before for underlying chronic paroxysmal atrial fibrillation. 4. Chronic obstructive pulmonary disease. Continue Singulair, continue nebulizer treatment. PLAN: Continue current therapy for rate control, Cardizem CD and Lopressor 50 b.i.d. Continue these medications for rate control and we will follow up clinically. Baltazar Guerra MD
--- NOTE | 2017-12-03 15:40 | CP.PCM.PN ---
<Kiley John - Last Filed: 12/03/17 15:38> Subjective - Date & Time of Evaluation Date of Evaluation: 12/03/17 Time of Evaluation: 10:10 - Subjective Subjective: Seen and examined at the bedside earlier today, chart review. Patient complains of explosive diarrhea yesterday and this morning. Patient has already been placed on empiric Flagyl. Patient denies nausea, vomiting, or abdominal pain. Status post fluid aspiration of knees this morning. Patient tolerating oral intake. No acute of overnight events reported. On heparin drip per protocol. Objective - Vital Signs/Intake and Output Vital Signs (last 24 hours): Temp Pulse Resp BP Pulse Ox 97.8 F 62 18 115/75 100 12/03/17 12:00 12/03/17 12:00 12/03/17 12:00 12/03/17 12:00 12/03/17 06:00 Intake and Output: 12/03/17 12/03/17 06:59 18:59 Intake Total 1436 200 Output Total 3 Balance 1433 200 - Medications Medications: Current Medications Acetaminophen (Tylenol 325mg Tab) 650 mg PO Q4H PRN PRN Reason: Pain, Mild (1-3) Albuterol/Ipratropium (Duoneb 3 Mg/0.5 Mg (3 Ml) Ud) 3 ml IH [id number] PRN PRN Reason: Shortness of Breath Aspirin (Ecotrin) 81 mg PO DAILY [facility] Last Admin: 12/03/17 09:12 Dose: 81 mg Diltiazem HCl (Cardizem Cd) 120 mg PO DAILY [facility] Last Admin: 12/03/17 09:12 Dose: 120 mg Diphenhydramine HCl (Benadryl) 25 mg PO Q6 PRN PRN Reason: Allergy symptoms Last Admin: 11/30/17 09:58 Dose: 25 mg Heparin Sodium/Sodium Chloride (Heparin 97596 Units/250ml 1/2 Normal Saline) 25 ,000 units in 250 mls @ 9 mls/hr IV .Q24H GUALBERTO; 900 UNITS/HR PRN Reason: Protocol Last Admin: 12/03/17 15:19 Dose: 800 units/hr, 8 mls/hr Potassium Chloride 20 meq/ (Sodium Chloride) 1,010 mls @ 70 mls/hr IV .[id number] [facility] Last Admin: 12/03/17 15:21 Dose: 70 mls/hr Metoprolol Tartrate (Lopressor) 50 mg PO BRKDIN [facility] Last Admin: 12/03/17 09:11 Dose: 50 mg Metronidazole (Flagyl) 500 mg PO Q8 [facility] PRN Reason: Protocol Last Admin: 12/03/17 15:08 Dose: 500 mg Montelukast Sodium (Singulair) 10 mg PO HS [facility] Last Admin: 12/02/17 22:26 Dose: 10 mg Ondansetron HCl (Zofran Inj) 4 mg IVP Q6H PRN PRN Reason: Nausea/Vomiting Oxycodone/Acetaminophen (Percocet 5/325 Mg Tab) 1 tab PO Q4H PRN PRN Reason: Pain, severe (8-10) Stop: 12/04/17 12:55 Last Admin: 12/03/17 09:19 Dose: 1 tab Pantoprazole Sodium (Protonix Inj) 40 mg IVP Q12 [facility] Last Admin: 12/03/17 09:12 Dose: 40 mg Sucralfate (Carafate Oral Susp) 1 gm PO BID [facility] Last Admin: 12/03/17 09:09 Dose: 1 gm Tramadol HCl (Ultram) 50 mg PO TID PRN PRN Reason: Pain, moderate (4-7) Vancomycin HCl (Vancocin 25 Mg/Ml (Oral Use)) 125 mg PO QID [facility] PRN Reason: Protocol Stop: 12/13/17 18:01 - Labs Labs: 12/03/17 04:15 12/03/17 04:15 PT 12.6 SECONDS (9.4-12.5) H 12/02/17 04:40 INR 1.09 (0.93-1.08) H 12/02/17 04:40 APTT 57.9 Seconds (25.1-36.5) H 12/03/17 04:15 - Constitutional Appears: No Acute Distress - Eye Exam Eye Exam: Normal appearance. absent: Scleral icterus - ENT Exam ENT Exam: Mucous Membranes Moist - Respiratory Exam Respiratory Exam: NORMAL BREATHING PATTERN. absent: Respiratory Distress - Cardiovascular Exam Cardiovascular Exam: +S1, +S2 - GI/Abdominal Exam GI & Abdominal Exam: Soft, Normal Bowel Sounds. absent: Guarding, Tenderness, Organomegaly, Rebound - Extremities Exam Extremities Exam: absent: Calf Tenderness, Pedal Edema - Neurological Exam Neurological Exam: Alert, Awake, Oriented x3 - Skin Skin Exam: Dry, Warm Assessment and Plan - Assessment and Plan (Free Text) Assessment: Assessment: GI bleed, status post endoscopy found to have non bleeding gastric ulcer with clean base (zeke clase III) Anemia,CT abd/pelvis without contrast on 11/26/17 did not show any acute findings , patient received total 3 units pRBC, and 2 units FFP Diarrhea rule out C. difficile Mitral valve disease Paroxsymal atrial fibrillation Plan: On heparin drip per protocol, may start anticoagulation since no bleeding after 48 hours being on heparin, recommend Coumadin, anticoagulant as per PCP/ hematology, hemoglobin stable. Continue PPI currently on Protonix twice a day, and view of acute renal failure would recommend to DC on PPI daily and on Carafate. Patient would need repeat endoscopy in about 8 weeks to follow up healing of ulcers, discussed with patient Monitor H&H and monitor for overt GI bleed. Diet as tolerated Requests again stool for C. difficile Continue Flagyl, will start on oral vancomycin Seen and discussed with Dr. Ramirez <Sun Ramirez V - Last Filed: 12/03/17 21:53> Objective - Vital Signs/Intake and Output Vital Signs (last 24 hours): Temp Pulse Resp BP Pulse Ox 98.7 F 79 18 114/75 100 12/03/17 17:44 12/03/17 17:44 12/03/17 17:44 12/03/17 17:44 12/03/17 06:00 Intake and Output: 12/03/17 12/04/17 18:59 06:59 Intake Total 200 Balance 200 - Labs Labs: 12/03/17 04:15 12/03/17 04:15 PT 12.6 SECONDS (9.4-12.5) H 12/02/17 04:40 INR 1.09 (0.93-1.08) H 12/02/17 04:40 APTT 57.9 Seconds (25.1-36.5) H 12/03/17 04:15 Attending/Attestation - Attestation I have personally seen and examined this patient.: Yes I have fully participated in the care of the patient.: Yes I have reviewed all pertinent clinical information, including history, physical exam and plan: Yes Notes (Text): This is an addendum to GI progress report dictated by Kiley John APN.The patient was seen and examined earlier. Medical records, lab studies, imagings were reviewed. Last 24 hours events reviewed. Agreed with the above treatment plan as outlined in Kiley John APN's notes with the addition of the following diarrhea is slowing down On by mouth Flagyl and vancomy empirically for possible C. difficile associated diarrhea On examination abdomen soft no tenderness On IV heparin Renal function improving on IVF Consider starting on Coumadin if crit remains sta Large gastric ulcer, follow-up biopsy reduce Protonix to once after 3 days patient would need a repeat EGD to evaluate hof gastric ulcer bioprosthetic mitral valveBita fib need long-term anticoagula 12/03/17 21:50
--- NOTE | 2017-12-03 16:05 | PN ---
DATE: 12/02/2017 SUBJECTIVE: She seems stable. Her knee pain has resolved. She is able to move her knee and flex it much better. Also, history of a fall day before that and CT of the head was negative. The patient seems stable. No injuries. The fall happened due to pain in her knee, could not stand up, but , the patient feels much better about her knee, swelling has gone and redness and hotness of the knee is much better. 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 This happened after endoscopy, she said. We will evaluate that and we will get a neuro consult to evaluate that. PHYSICAL EXAMINATION: VITAL SIGNS: Temperature 97.7, heart rate 73, blood pressure 126/85, respirations 19, saturation 99%. HEAD AND NECK: Normal. No JVD. No thyromegaly. CHEST: Clear bilaterally. CARDIAC: First sound and second sound normal. Regular. ABDOMEN: Soft, nontender. EXTREMITIES: Normal. Her knee exam seems swelling is more than 50% down and able to move and flex her knee without any pain and decreased hotness and swelling. Her left upper extremity, she was pushing normal strength, but however, her wrist is a kind of is weak, possibly due to pain. IMPRESSION: 1. Acute gouty arthritis or pseudogout arthritis. The patient is better with Solu-Medrol, she is off right now and she is doing better. 2. Left hand weakness or pain on squeezing. We will get a neuro consult to evaluate that. The patient has a CT which is negative. She did mention that after endoscopy; however, it is unclear if there is any weakness. We will give the patient on baby aspirin that she was getting before. Continue IV heparin for now. Get a neuro consult for evaluations for left upper extremity. 3. Acute gastrointestinal bleed, stable, no more bleeding. Continue to follow up hemoglobin and hematocrit. Continue IV Protonix and Pepcid. 4. Paroxysmal atrial fibrillation. Continue heparin. Continue Cardizem and metoprolol. PLAN: Continue current therapy. Follow up clinically. The patient has also underlying COPD. We will continue nebulizer treatment, Combivent or DuoNeb four times a day and every 4 hours p.r.n. Continue current therapy. She will need physical therapy, probably TCU is better for her before she goes home. I discussed the case with the Hematology and GI on that day. Baltazar Guerra MD
[2017-12-03 17:45] VITALS: BP 114/75; PULSE 79; TEMP 98.7
[2017-12-03] MEDS ORDERED: Vancomycin 25 MG/ML PO SCH (18:00)
--- NOTE | 2017-12-03 20:10 | PN ---
DATE: 12/03/2017 NEUROLOGY FOLLOWUP CHIEF COMPLAINT: Left hand weakness after anesthesia of the procedure endoscopy. SUBJECTIVE: The patient is seen and examined at bedside, doing much better. She initially came for shortness of breath and black tarry stools and was admitted in the ICU initially for symptomatic anemia with hemoglobin of 6.6, it was likely secondary to GI bleed, had an endoscopy and a large ulcer noted and was intertwined. After the procedure, she had some left hand weakness. CAT scan of the head showed no acute intracranial abnormality. It is likely mostly peripheral in nature and also anesthesia related. No focal weakness at this time. No pronator drift seen. She is stable. PAST MEDICAL HISTORY: Severe mitral regurgitation; status post open heart surgery repair with MVR bioprosthetic; history of paroxysmal atrial fibrillation, on Eliquis; nonobstructive coronary artery disease; COPD. REVIEW OF SYSTEMS: A 14-point review of systems negative except as per the HPI. ALLERGIES: ALLERGIC TO CINNAMON. MEDICATIONS: Reviewed by nurse per reconciliation sheet. SOCIAL HISTORY: No illicit drug use, smoking, or EtOH abuse. FAMILY HISTORY: Noncontributory. LABORATORY DATA: Hemoglobin 9.1, hematocrit 27.5, platelet count . Sodium is 137, potassium 3.5, chloride 104, carbon dioxide 22. BUN of 35, creatinine of 1.5. Random glucose of 126. PHYSICAL EXAMINATION: VITAL SIGNS: Temperature 98.7, pulse rate is 79, blood pressure 114/75, respiratory rate of 18. GENERAL: The patient sitting up in bed, in no acute distress. HEENT: Atraumatic and normocephalic. PERRLA. Extraocular muscles intact. NECK: Supple. No JVD. No adenopathy noted. LUNGS: Clear to auscultation. No adventitious sounds. HEART: S1 and S2, normal rate and rhythm. No murmurs, rubs, or gallops. ABDOMEN: Soft, nontender, nondistended. Bowel sounds are present. EXTREMITIES: No clubbing. No cyanosis. Peripheral pulses 2+ felt bilaterally. NEUROLOGIC: The patient is alert and oriented to person, place, month and year. Speech is fluent without any errors. Cranial nerves II through XII intact. Motor exam: Moves all extremities equally. No pronator drift seen. Toes are downgoing bilaterally. Sensory: Light touch, pinprick, proprioception, vibration intact. DTRs are 2+ throughout. Coordination: [id number] intact. No dysmetria noted. Gait is deferred for now. ASSESSMENT AND PLAN: This is a 62-year-old woman with past medical history significant for mitral regurgitation; status post open heart surgery and repair with mitral valve replacement bioprosthetic; history of paroxysmal atrial fibrillation, on Eliquis; nonobstructive coronary artery disease; chronic obstructive pulmonary disease, presenting to the [facility] with complaints of shortness of breath and black tarry stools, loose in nature, admitted to intensive care unit for symptomatic anemia with hemoglobin of 6.7, likely secondary to gastrointestinal bleed. The patient was transfused 3 units of packed red blood cells and 2 units of fresh frozen plasma. Repeat hemoglobin is 9.7 with stable hemoglobin and hematocrit and had an endoscopy done, which a large ulcer was noted and was intertwined. The Eliquis was on hold and as per GI, will be restarted for paroxysmal atrial fibrillation. She had recently consulted due to left hand weakness peripheral in nature from underlying prolonged immobilization of the hand during anesthesia of the procedure and unlikely a transient ischemic attack. At this time, we recommended: 1. To follow up with Cardiology and GI recommendation is going to resume the Eliquis for paroxysmal atrial fibrillation, stroke prevention. Continue aspirin 81 mg p.o. daily for stroke prevention. 2. Keep blood pressures between 120s to 130s systolic and diastolic between 70s to 80s. 3. Avoid overuse of nonsteroidal anti-inflammatory drugs given that her recent gastrointestinal bleed and ulcer and continue current present medical management. No further neurological recommendation at this time. Thank you for this followup. Epifanio Nguyen MD
--- NOTE | 2017-12-04 00:32 | CON ---
DATE: 12/03/[address] Baltazar Guerra. REFERRING MD: Larry Mcdaniel MD REASON FOR CONSULTATION: Evaluation of the patient known to me from prior evaluation who presents with an elevated BUN and creatinine in the setting of a likely upper GI bleed. HISTORY OF PRESENT ILLNESS: The patient is a pleasant 62-year-old black female with a history of paroxysmal atrial fibrillation on chronic anticoagulation with Eliquis, past history of mitral valve replacement in the fall of 2016. History of LVH, ejection fraction 55%, history of mild valvular heart disease, history of anemia, history of UTI diagnosed during present hospitalization, history of bilateral osteoarthritis of her knees. The patient presented to the hospital 1 week ago with increasing shortness of breath and fatigue. She was noted to have a hemoglobin of 6.7. The patient was evaluated by GI for likely GI bleed. She had an upper endoscopy which showed nonbleeding antral ulcer. She received a total of 4 units of packed red blood cells and 2 units of FFP. Her anticoagulation was reversed. The patient currently remains in atrial fibrillation on low-dose heparin therapy. Her hemoglobin has remained stable over the last several days in the low 9 range. Her BUN and creatinine were always normal at less than 10 and 1.0. Two days ago, her BUN went up to 31, today is 35. Creatinine went up from 1-1.4 to 1.7, it is currently 1.5. The patient had been started on IV fluid hydration. We are asked to evaluate the patient for the increase in her BUN and creatinine. PAST MEDICAL HISTORY: Significant for paroxysmal atrial fibrillation, valvular heart disease, status post mitral valve repair, chronic anticoagulation, history of LVH with AI/MR/TR. History of anemia. History of a Klebsiella urinary tract infection as noted above. History of osteoarthritis of her knees. History of hypertension. MEDICATIONS AT HOME: Include that of simvastatin, Singulair, Lopressor, mag oxide, Claritin, p.o. Lasix, Feosol, Pepcid, Cartia, vitamin D, Symbicort, Eliquis, and aspirin. ALLERGIES: THE PATIENT IS ALLERGIC TO CINNAMON. CURRENT MEDICATIONS IN HOSPITAL: Include that of Benadryl, Carafate, Cardizem, DuoNeb, Ecotrin, p.o. Flagyl, IV heparin, Lopressor, Percocet, Protonix, Singulair, half-normal saline 70 mL an hour, Tylenol p.r.n., Ultram p.r.n., and Zofran p.r.n. SOCIAL HISTORY: History of occasional alcohol use, none recently. No history of cigarette smoking. The patient was never a cigarette smoker. She denies exposure of secondhand cigarette smoke from her father. FAMILY HISTORY: Father of brain cancer and diabetes. Mother of complications of heart disease. REVIEW OF SYSTEMS: A 10+ systems reviewed with the patient. All negative except what is noted above. GENERAL: The patient states appetite and weight have been stable. HEENT: Denies any hearing or visual problems. PULMONARY: No shortness of breath. History of mild asthma in the past. No history of COPD. No history of emphysema or bronchitis. No recent pneumonias. CARDIAC: History of valvular heart disease, status post mitral valve repair. History of nonobstructive coronary artery disease, history of valvular heart disease. History of atrial fibrillation on chronic anticoagulation. GI: No nausea. No vomiting. No diarrhea, constipation, abdominal pain. The patient denies seeing any GI bleeding. : No history of chronic kidney disease. No history of UTIs. However, the patient does have a Klebsiella UTI presently. PATHOLOGY LABORATORY TECHNOLOGIST: Postmenopausal. ENDOCRINE: No history of diabetes. MUSCULOSKELETAL: No issues. NEURO: No history of CVA, TIA, seizures or syncope. HEM/ONC: No history of anemia. No history of malignancy prior to this point in time. PSYCHIATRIC: History is negative. PHYSICAL EXAMINATION: GENERAL: The patient is currently seen just having completed a carotid Doppler study. VITAL SIGNS: Blood pressure 129/65, heart rate 88, temperature 97.9, respiratory rate of 20 with a pulse ox of 100%. HEENT: Shows her to be normocephalic, atraumatic. Conjunctivae remain pale. Sclerae are nonicteric. Pupils equal, reactive to light and accommodation. Extraocular muscles are intact. Posterior pharynx is normal. NECK: Supple. No neck vein distention. No thyromegaly. No lymphadenopathy. No bruits. CHEST: Clear to auscultation and percussion with no rales, rhonchi or wheezing. CARDIOVASCULAR: Shows an irregular S1, S2. No S3. No S4. Status post mitral valve replacement. MR/AI/TR. Distal lower extremity pulses are 1 to 2+ bilaterally. ABDOMEN: Soft. Bowel sounds normal. No rebound, guarding or masses. BACK: No CVAT. No spinal tenderness. EXTREMITIES: Show no lower extremity cyanosis, clubbing or edema. Distal lower extremity pulses are 1 to 2+ bilaterally. NEURO: Shows her be alert and oriented x3 with no gross focal motor or sensory deficits noted. LABORATORY DATA AND IMAGING STUDIES: Abdominal CT on admission was unremarkable. Chest x-ray on admission showed mild pulmonary vascular congestion. Upper endoscopy done during hospitalization showed nonbleeding antral ulcer. CBC, white blood cell count was as high as 21.4 is currently down to 11.2. Hemoglobin was 6.7 on admission, status post 4 units of packed red blood cells. Hemoglobin is now stable at 9.1. Platelet count is 324,000. Coag show a PTT of 57.9 on heparin. Chemistries show a sodium of 137, potassium 3.5, BUN 35 with a creatinine of 1.5. Her baseline BUN is less than 10 with a creatinine of 1. Glucose is 126. Calcium 8.9, phosphorus 4.1 with a magnesium level of 2.1. Liver enzymes are normal. Albumin level is 3.3. No urine is available for comment. Microbiology, urine culture positive for Klebsiella. Blood cultures were negative at 24 hours. ASSESSMENT: 1. Acute renal failure in a patient with no past history of chronic kidney disease. This is likely in the setting of a perhaps upper gastrointestinal bleed with volume depletion. I expect that with IV fluid hydration, her BUN and creatinine will return to normal. Her abdominal CT scan showed no abnormalities of her kidney. The patient had been seen by us for a similar presentation in the past. 2. History of paroxysmal atrial fibrillation on chronic anticoagulation. The patient remains on low-dose heparin therapy. Trying to determine the best time of anticoagulation for her given her gastrointestinal bleed. 3. Status post severe anemia. The patient is now mildly anemic with a hemoglobin level of 9.1. She was as low as 6.7. 4. History of mitral valve replacement, history of aortic insufficiency/mitral regurgitation/tricuspid regurgitation with ejection fraction of 55%. 5. History of Klebsiella urinary tract infection. Antibiotic therapy as per her primary care physician. 6. History of osteoarthritis of her knees bilaterally, status post orthopedic intervention. 7. History of hypertension. Blood pressure is controlled on present medical therapy. No change in current regimen. 8. History of a gastric antral ulcer. The patient will continue on protein pump inhibition therapy. PLAN: 1. Agree with IV fluid administration. In light of her potassium level of 3.5, we will supplement her potassium and the IV fluids. 2. Consider treatment for her Klebsiella urinary tract infection. 3. Continue to monitor accurate Is and Os and labs on a daily basis at least for the next several days. 4. Continued followup by Cardiology and Hematology/Oncology. Thank you for letting me partake and share in the care of your patient. Ayan Hernandez MD
--- NOTE | 2017-12-04 04:38 | CON ---
DATE: 12/03/2017 LOCATION: Patient is seen earlier today in 371, bed 2. CHIEF COMPLAINT: Positive urine cultures x1 day. HISTORY OF PRESENT ILLNESS: This is a 62-year-old female with past medical history significant for asthma, hypertension, severe mitral regurgitation, history of mitral valve replacement, history of esophageal ulcers, chronic obstructive lung disease, dyslipidemia, atrial fibrillation, who was admitted with the diagnosis of gastrointestinal bleeding. The patient was seen in the emergency room by Dr. Reginaldo Walsh and she was admitted also with shortness of breath and had diagnoses of GI bleed and tachycardia, chronic obstructive lung disease. Urine culture was done for reasons unknown and is positive for Klebsiella pneumonia which is ESBL Klebsiella in the urine. REVIEW OF SYSTEMS: Revealed the patient has no fevers, although on the , patient did have a temperature of 100.3 and the urine culture was collected on the . Patient's shortness of breath is improved and no chest pain, abdominal pain, diarrhea, or constipation at this point. Twelve-point review of system is performed. PAST MEDICAL HISTORY: Significant for asthma, chronic obstructive lung disease, atrial fibrillation, cardiac arrhythmia, congestive heart failure, esophageal ulcers, severe mitral regurgitation, hypertension, asthma, peripheral vascular disease, coronary artery disease, arthritis, depression, anxiety. PAST SURGICAL HISTORY: Significant for bilateral bunion surgery, cardiac catheterization, cholecystectomy, mitral valve replacement. ALLERGIES: PATIENT IS ALLERGIC WITH CINNAMON. MEDICATIONS: Reviewed. PHYSICAL EXAMINATION: VITAL SIGNS: Patient's temperature is 97, had a temperature of 100.3 on the and earlier than that, the patient's admitting temperatures are normal with a heart rate of 100, respiratory rate of 18, blood pressure is 115/70. HEENT: Unremarkable. NECK: Supple. LUNGS: Have decreased breath sounds. HEART: Normal S1 and S2. ABDOMEN: Soft, nontender. LABORATORY DATA: Reveals a white count of 9.2, it went up to 21,000, 86% neutrophils, 9% band. Chemistries reveal a BUN of 31, creatinine of 1.7 and initially, patient's creatinine was 1. On admission, the patient's creatinine was 0.9. Synovial fluid analysis shows a synovial wbc of 9000, it went up to 24, 000. Her blood cultures had been negative. Nares are negative for MRSA. The Klebsiella pneumonia ESBL is in the urine. Patient was on steroids. Patient was started on p.o. vancomycin because of diarrhea. note is reviewed. ASSESSMENT AND PLAN: This is a 62-year-old female with asthma, chronic obstructive pulmonary disease, dyslipidemia, atrial fibrillation, congestive heart failure, coronary artery disease, peripheral vascular disease, esophageal ulcers, severe mitral regurgitation, hypertension, arthritis, depression, anxiety, was initially admitted with shortness of breath, black tarry stools and loose in nature with symptomatic anemia and gastrointestinal bleed. Patient did not have any dysuria or frequency. No urinary symptoms and had a urine culture now with: 1. Systemic inflammatory response syndrome with Klebsiella pneumonia in urine culture, which is extended spectrum beta lactamase, asymptomatic bacteruria, does not require antibiotic therapy. We would not treat this patient for extended spectrum beta lactamase and no urinalysis is available. We are waiting for urinalysis and we will check on urinalysis and re-question regarding symptoms and check on the stool, Clostridium difficile. If it is negative, we will discontinue the p.o. vancomycin. Sachin Valenzuela MD
--- NOTE | 2017-12-04 13:25 | US ---
PROCEDURE: Neural carotid artery duplex ultrasound HISTORY: Carotid stenosis CVA PHYSICIAN(S): John Vera MD. TECHNIQUE: Duplex sonography and color-flow Doppler were used to evaluate the carotid bifurcations and limited segments of the vertebral arteries bilaterally. FINDINGS: The exam is limited by body habitus and the patient's inability to cooperate. There is mild diffuse smooth hypoechoic plaque noted at the carotid bifurcations bilaterally. The peak systolic velocity in the proximal right internal carotid artery is 45 cm/sec. This corresponds to a 20 to 39% proximal right ICA stenosis. Normal systolic velocities are noted in the proximal right external carotid artery. There is antegrade flow in the right vertebral artery. There is a 3rd arterial structure between the right carotid and vertebral artery. This could represent a congenital variant. The peak systolic velocity in the proximal left internal carotid artery is 82 cm/sec. This corresponds to a 20 to 39% proximal left ICA stenosis. Normal systolic velocities are noted in the proximal left external carotid artery. There is antegrade flow in the left vertebral artery. IMPRESSION: 1. Bilateral 20-39% proximal ICA stenoses. 2. Antegrade flow in both vertebral arteries. 3. Limited study.
--- NOTE | 2017-12-05 07:10 | DS ---
HISTORY OF PRESENT ILLNESS: A 62-year-old female admitted with low hemoglobin of 6.5 or 6.8 with severe anemia, found to have peptic ulcer disease. No active bleeding. The patient had been stable after transfusions. She was on Eliquis and she was treated with transfusions and was given fresh frozen plasma. She was admitted in ICU, monitored very well. The patient was hemodynamically stable after endoscopy. The patient was transferred to the telemetry. She has no chest pain. No shortness of breath. Seen by Cardiology, Dr. Beebe and after evaluation and stabilization, the patient was started on IV heparin to prevent any thromboembolic phenomena from paroxysmal atrial fibrillations. The patient does also have mitral valve replacement, biological valve. The patient is stable clinically. She did complain while she was in the hospital with bilateral knee swelling, more in the left. She has difficulty walking because of that. Initially, the patient refused tapping the fluid, however, she was given IV steroids with some improvements. Later on, day of discharge, the patient was tapped from the knee joint by Dr. Thomas Vines and the patient felt lot better,given steroids and she felt lot better after that. She is stable hemodynamically. Blood count stable and clinically, she is much better. She did have a fall. CT was negative and she was started on baby aspirin as her previous regimen. We will continue to monitor her H and H. PHYSICAL EXAMINATION: VITAL SIGNS: On discharge, her vital signs are as follows: Temperature 98.7, heart rate 79, blood pressure 114/75, respirations 18. HEAD AND NECK: Normal. No JVD. No thyromegaly. CHEST: Clear. Good air entry. CARDIAC: First sound and second sound normal. No murmur, rub or gallop. ABDOMEN: Soft, nontender. EXTREMITIES: No edema. Her knee is less swollen, less warm and less tender. Significant improvement. NEUROLOGIC: Normal. LABORATORY DATA: Laboratory study on discharge, white count 11.2, hemoglobin 9.1, hematocrit 27.1 and platelets 324. Chemistry, sodium 137, potassium 3.5, chloride 104, bicarbonate 22, BUN 35, creatinine 1.5, improving. Her glucose is 126. Her liver function test is normal. DISCHARGE DIAGNOSES: 1. Acute gastrointestinal bleed. 2. Peptic ulcer disease. 3. Severe anemia requiring transfusion. 4. Paroxysmal atrial fibrillation. 5. Acute gouty arthritis. 6. Knee effusion and swelling, bilateral. 7. Status post fall. 8. Chronic obstructive pulmonary disease. 9. Anxiety. The patient will be due to her general weakness and associated urinary tract infection, ESBL, we will repeat the urine analysis. The patient will be transferred due to her generalized weakness and bilateral phlebitis, being on a blood thinner, risk of fall and bleeding if she hit her head. We have to stabilize the patient before discharge to be safe discharge. At this moment, transfer the patient. Discharge the patient to transitional care unit for continuation of her medical care and monitoring her PT INR and her clinical status. We will continue current therapy. We will get a consult also, Cardiology, Hematology to follow up on the patient. ID consult with Dr. Valenzuela has been consulted for ESBL in the urine. Continue current therapy. The patient currently is getting aspirin, Benadryl, Carafate, Cardizem CD 120, DuoNeb, Lopressor 50 b.i.d., Percocet p.r.n. for pain. She received potassium, Protonix 40 IV, Singulair 10, Tylenol p.r.n., tramadol 50 t.i.d. p.r.n. and she got by Dr. Ramirez, who had endoscopy, Vancocin and was given Zofran. We will continue current management. To discharge the patient to TCU for continuation of medical care. Baltazar Guerra MD
== END 2017-12-03 20:23 | DRG 378 ==
LOC: ED 12:19 → ERH 14:47 → CCU 15:41 → 2RSO 11-28 20:20
PROVIDERS: ADMIT Internal Medicine; ATTEND Internal Medicine
PROC: 30233K1 Transfusion of Nonautologous Frozen Plasma into Peripheral Vein, Percutaneous Approach (ICD-10-PCS; 2017-11-26)
PROC: 30233N1 Transfusion of Nonautologous Red Blood Cells into Peripheral Vein, Percutaneous Approach (ICD-10-PCS; 2017-11-26)
PROC: 0DB68ZX Excision of Stomach, Via Natural or Artificial Opening Endoscopic, Diagnostic (ICD-10-PCS; principal; 2017-11-28 09:30)
PROC: 0S9D3ZX Drainage of Left Knee Joint, Percutaneous Approach, Diagnostic (ICD-10-PCS; 2017-11-29)
PROC: 0S9C3ZX Drainage of Right Knee Joint, Percutaneous Approach, Diagnostic (ICD-10-PCS; 2017-11-29)
DX: K92.2 Gastrointestinal hemorrhage, unspecified (principal); J44.1 Chronic obstructive pulmonary disease with (acute) exacerbation; D68.2 Hereditary deficiency of other clotting factors; N17.9 Acute kidney failure, unspecified; N39.0 Urinary tract infection, site not specified; K25.9 Gastric ulcer, unspecified as acute or chronic, without hemorrhage or perforation; K44.9 Diaphragmatic hernia without obstruction or gangrene; D50.0 Iron deficiency anemia secondary to blood loss (chronic); E78.5 Hyperlipidemia, unspecified; E78.00 Pure hypercholesterolemia, unspecified; F41.9 Anxiety disorder, unspecified; F32.9 Major depressive disorder, single episode, unspecified; I25.10 Atherosclerotic heart disease of native coronary artery without angina pectoris; M1A.9XX0 Chronic gout, unspecified, without tophus (tophi); K27.3 Acute peptic ulcer, site unspecified, without hemorrhage or perforation; M17.0 Bilateral primary osteoarthritis of knee; I48.0 Paroxysmal atrial fibrillation; R04.0 Epistaxis; I48.2 Chronic atrial fibrillation; I08.3 Combined rheumatic disorders of mitral, aortic and tricuspid valves; R00.0 Tachycardia, unspecified; K64.8 Other hemorrhoids; M25.462 Effusion, left knee; M25.461 Effusion, right knee; E86.9 Volume depletion, unspecified; B96.1 Klebsiella pneumoniae [K. pneumoniae] as the cause of diseases classified elsewhere; Z16.12 Extended spectrum beta lactamase (ESBL) resistance; Z95.3 Presence of xenogenic heart valve; Z91.14 Patient's other noncompliance with medication regimen; Z79.01 Long term (current) use of anticoagulants

== ENCOUNTER 2017-12-03 20:32 | Inpatient (IN) | payer OTHER ==
[2017-12-03] MEDS ORDERED: Oxycodone/Acetaminophen 5/325 mg Tab PO PRN (20:51)
[2017-12-03] MEDS ORDERED: Heparin25000 units/250ml 1/2NS 25,000 UNITS/250 ML BAG IV PRN (21:03)
[2017-12-03 22:10] LABS: URINE BILIRUBIN NEGATIVE (NEGATIVE); URINE BLOOD MODERATE (NEGATIVE); URINE GLUCOSE (UA) NEGATIVE (NEGATIVE); URINE LEUKOCYTE ESTERASE TRACE Leu/uL (NEGATIVE); URINE PROTEIN TRACE mg/dL (<30 mg/dL); URINE UROBILINOGEN 0.2 E.U./dL (<1 E.U./dL)
[2017-12-03 22:12] LABS: URINE APPEARANCE TURBID (CLEAR); URINE COLOR YELLOW (YELLOW)
[2017-12-03] MEDS: Vancomycin 25 MG/ML PO SCH (22:20)
[2017-12-03] MEDS: Pantoprazole 40mg/100mL NS 40 MG/100 ML BAG IVPB SCH (22:22)
[2017-12-03 22:25] LABS: URINE WBC 0 - 2 /hpf (0-6)
[2017-12-04] MEDS ORDERED: Pneumococcal 23-Valent Vaccine IM ONE (00:29)
[2017-12-04] MEDS: Sucralfate 1 gm/10 ml Oral Susp UD PO SCH ×2 (06:09→16:59)
[2017-12-04 07:33] LABS: GRAN # 6.75 (1.4-6.5); GRAN % 92.9 % (50.0-68.0); HEMOGLOBIN 8.5 g/dL (12.0-16.0); LYMPH # 0.4 (1.2-3.4); MEAN CELL VOLUME 87.5 fl (80.0-105.0); MEAN CORPUSCULAR HEMOGLOBIN 29.4 pg (25.0-35.0); MEAN CORPUSCULAR HGB CONC 33.6 g/dl (31.0-37.0); MEAN PLATELET VOLUME 9.6 fl (7.0-11.0); MONO # 0.2 (0.1-0.6); MONO % 2.1 % (1.0-6.0); PLATELET COUNT 358 10^3/uL (120.0-450.0); RBC 2.89 10^6/uL (3.5-6.1); RED CELL DISTRIBUTION WIDTH 15.2 % (11.5-14.5); WHITE BLOOD COUNT 7.3 10^3/ul (4.5-11.0)
--- NOTE | 2017-12-04 07:40 | CP.PCM.CON ---
History of Present Illness - History of Present Illness History of Present Illness: Awake, alert, denies shortness of breath, denies chest pain Reason for consultation: Continuity of care to TCU, cardiac follow up, history of mitral valve replacement (bioprosthetic) , Atrial fibrillation,was on eliquis ,COPD, asthma, GI bleeding, anemia requiring blood transfusion. Brief history of present illness: A 62 year old female who came in to the ER due to shortness of breath and complaining of tarry stools. Hemoglobin showed to be low (6.7) and blood were transfused. Endoscopy showed large gastric ulcer. Eliquis was discontinued and heparin drip was started. Developed gout on both knees and steroid injection done. Had an episode of fall 2 days ago trying to get up and knees gave up. Transferred to TCU for reconditioning. Seen and examined by me and Dr. Beebe Review of Systems - Constitutional Constitutional: As Per HPI - Cardiovascular Additional comments: denies chest pain, denies shortness of breath - Gastrointestinal Additional comments: denies tarry stools, had bowel movement yesterday - Genitourinary Additional comments: continent - Musculoskeletal Additional comments: walks with cane, Past Patient History - Infectious Disease Hx of Infectious Diseases: None - Tetanus Immunizations Tetanus Immunization: Unknown - Past Social History Smoking Status: Never Smoked - CARDIAC Hx Cardiac Disorders: Yes (mitral valve disease) - PULMONARY Hx Chronic Obstructive Pulmonary Disease (COPD): Yes - NEUROLOGICAL Hx Neurological Disorder: Yes Hx Dizziness: Yes Hx Migraine: Yes - HEENT Hx HEENT Problems: No - RENAL Hx Chronic Kidney Disease: No - ENDOCRINE/METABOLIC Hx Endocrine Disorders: No - HEMATOLOGICAL/ONCOLOGICAL Hx Blood Transfusions: Yes Hx Blood Transfusion Reaction: No - INTEGUMENTARY Hx Dermatological Problems: No - MUSCULOSKELETAL/RHEUMATOLOGICAL Hx Falls: Yes - GASTROINTESTINAL Hx Gastrointestinal Disorders: Yes - GENITOURINARY/GYNECOLOGICAL Hx Genitourinary Disorders: No Hx Reproductive Disorders: No - PSYCHIATRIC Hx Psychophysiologic Disorder: No Hx Emotional Abuse: No Hx Physical Abuse: No Hx Substance Use: No - SURGICAL HISTORY Hx Surgeries: Yes (BILATERAL BUNION SX,LEFT CARPAL TUNNEL SX,CARD CATH) - ANESTHESIA Hx Anesthesia Reactions: No Hx Malignant Hyperthermia: No Meds Allergies/Adverse Reactions: Allergies Allergy/AdvReac Type Severity Reaction Status Date / Time cinnamon Allergy Intermediate ANAPHYLAXIS Verified 12/03/17 20:33 - Medications Medications: Current Medications Acetaminophen (Tylenol 325mg Tab) 650 mg PO Q4H PRN; Protocol PRN Reason: mild pain Albuterol/Ipratropium (Duoneb 3 Mg/0.5 Mg (3 Ml) Ud) 3 ml IH [id number] PRN; Protocol PRN Reason: Shortness of Breath Aspirin (Aspirin Chewable) 81 mg PO DAILY [facility] PRN Reason: Protocol Diltiazem HCl (Cardizem Cd) 120 mg PO DAILY [facility] PRN Reason: Protocol Diphenhydramine HCl (Benadryl) 25 mg PO Q6 PRN; Protocol PRN Reason: Allergy symptoms Potassium Chloride 20 meq/ (Sodium Chloride) 1,010 mls @ 70 mls/hr IV .[id number] [facility] PRN Reason: Protocol Last Admin: 12/03/17 22:22 Dose: 70 mls/hr Pantoprazole Sodium (Protonix 40mg Ivpb) 40 mg in 100 mls @ 200 mls/hr IVPB Q12 [facility] PRN Reason: Protocol Last Admin: 12/03/17 22:22 Dose: 200 mls/hr Heparin Sodium/Sodium Chloride (Heparin 96873 Units/250ml 1/2 Normal Saline) 25 ,000 units in 250 mls @ 8 mls/hr IV .Q24H PRN; Protocol PRN Reason: ADJUST RATE PER PROTOCOL Metoprolol Tartrate (Lopressor) 50 mg PO 0800,1800 [facility] PRN Reason: Protocol Montelukast Sodium (Singulair) 10 mg PO HS [facility] PRN Reason: Protocol Last Admin: 12/03/17 22:21 Dose: 10 mg Ondansetron HCl (Zofran Inj) 4 mg IVP Q6H PRN; Protocol PRN Reason: Nausea/Vomiting Oxycodone/Acetaminophen (Percocet 5/325 Mg Tab) 1 tab PO Q4H PRN; Protocol PRN Reason: severe pain Stop: 12/06/17 20:52 Sucralfate (Carafate Oral Susp) 1 gm PO 0600,1600 [facility] PRN Reason: Protocol Last Admin: 12/04/17 06:09 Dose: 1 gm Tramadol HCl (Ultram) 50 mg PO TID PRN; Protocol PRN Reason: moderate pain Vancomycin HCl (Vancocin 25 Mg/Ml (Oral Use)) 125 mg PO QID [facility] PRN Reason: Protocol Last Admin: 12/03/17 22:20 Dose: 125 mg Physical Exam - Constitutional Appears: No Acute Distress - Eye Exam Eye Exam: Normal appearance - ENT Exam ENT Exam: Mucous Membranes Moist - Respiratory Exam Respiratory Exam: Clear to Auscultation Bilateral, NORMAL BREATHING PATTERN - Cardiovascular Exam Cardiovascular Exam: +S1, +S2 - GI/Abdominal Exam GI & Abdominal Exam: Normal Bowel Sounds, Soft - Extremities Exam Extremities exam: Positive for: normal capillary refill Additional comments: knees less swelling 1+, with band aid post steroid injection - Neurological Exam Neurological exam: Alert, Oriented x3 - Psychiatric Exam Psychiatric exam: Normal Affect, Normal Mood - Skin Skin Exam: Intact, Normal Color, Warm Results - Vital Signs Recent Vital Signs: Last Vital Signs Temp 98 F 12/04/17 06:30 Pulse 72 12/04/17 06:30 Resp 18 12/04/17 06:30 BP 124/70 12/04/17 06:30 Pulse Ox 98 12/04/17 06:30 - Labs Result Diagrams: 12/04/17 07:15 Labs: Laboratory Results - last 24 hr 12/03/17 22:00 Urine Color Yellow Urine Appearance Turbid Urine pH 6.0 Ur Specific [place] 1.015 Urine Protein Trace H Urine Glucose (UA) Negative Urine Ketones Negative Urine Blood Moderate H Urine Nitrate Positive H Urine Bilirubin Negative Urine Urobilinogen 0.2 Ur Leukocyte Esterase Trace H Urine RBC 1 - 3 Urine WBC 0 - 2 Assessment & Plan - Assessment and Plan (Free Text) Assessment: A 62 year old female who came in to the ER due to shortness of breath and complaining of tarry stools. Hemoglobin showed to be low (6.7) and blood were transfused. Endoscopy showed large gastric ulcer. Eliquis was discontinued and heparin drip was started. Developed gout on both knees and steroid injection done. Had an episode of fall 2 days ago trying to get up and knees gave up. Transferred to TCU for reconditioning. Plan: On Heparin drip at 800 units/hr PTT level per protocol Claimed to have no more tarry stools For physical therapy Closely monitor hemoglobin Fall precaution Continue current treatment Continue current medications Will follow up Plan and treatment discussed with Dr. Beebe Thank you for the opportunity to take care of Ms. Dariana Mcgregor
[2017-12-04 07:49] LABS: INR 1.1 (0.93-1.08); PARTIAL THROMBOPLASTIN TIME 69.5 Seconds (25.1-36.5); PROTHROMBIN TIME 12.7 SECONDS (9.4-12.5)
[2017-12-04 07:59] LABS: ALBUMIN 3.2 g/dL (3.0-4.8); ALT/SGPT 23 U/L (7-56); AST/SGOT 22 U/L (14-36); BLOOD UREA NITROGEN 23 mg/dL (7-21); GFR AFRICAN-AMERICAN > 60; GFR NON-AFRICAN AMERICAN > 60
[2017-12-04 08:32] LABS: HYPOCHROMIA 1+; LYMPHOCYTE 5 % (22.0-35.0); NEUTROPHIL 95 % (50.0-70.0); PLATELET ESTIMATE NORMAL (NORMAL)
[2017-12-04 08:33] LABS: LARGE PLATELETS PRESENT
[2017-12-04] MEDS: diltiaZEM 120 mg/24 Hours CD Cap PO SCH (09:12)
[2017-12-04] MEDS: Pantoprazole 40mg/100mL NS 40 MG/100 ML BAG IVPB SCH (09:13)
[2017-12-04] MEDS: Vancomycin 25 MG/ML PO SCH ×4 (09:14→21:01)
[2017-12-04] MEDS: Heparin25000 units/250ml 1/2NS 25,000 UNITS/250 ML BAG IV SCH ×2 (11:30→19:41)
[2017-12-04] MEDS ORDERED: Heparin25000 units/250ml 1/2NS 25,000 UNITS/250 ML BAG IV SCH (11:38)
--- NOTE | 2017-12-04 12:35 | CP.PCM.PN ---
Subjective - Date & Time of Evaluation Date of Evaluation: 12/04/17 Time of Evaluation: 11:00 - Subjective Subjective: Seen and examined at the bedside earlier this morning, chart reviewed. Patient transferred from telemetry to TCU last night. No reports of any overt GI bleed. Had soft BM today, no reports of bleeding. Tolerating oral intake denies nausea, vomiting, or abdominal pain. Patient hemoglobin of 8.5 noted this morning. Objective - Vital Signs/Intake and Output Vital Signs (last 24 hours): Temp Pulse Resp BP Pulse Ox 98 F 75 18 119/61 98 12/04/17 06:30 12/04/17 09:12 12/04/17 06:30 12/04/17 09:12 12/04/17 06:30 - Medications Medications: Current Medications Acetaminophen (Tylenol 325mg Tab) 650 mg PO Q4H PRN; Protocol PRN Reason: mild pain Albuterol/Ipratropium (Duoneb 3 Mg/0.5 Mg (3 Ml) Ud) 3 ml IH [id number] PRN; Protocol PRN Reason: Shortness of Breath Aspirin (Aspirin Chewable) 81 mg PO DAILY [facility] PRN Reason: Protocol Last Admin: 12/04/17 09:05 Dose: Not Given Diltiazem HCl (Cardizem Cd) 120 mg PO DAILY [facility] PRN Reason: Protocol Last Admin: 12/04/17 09:12 Dose: 120 mg Diphenhydramine HCl (Benadryl) 25 mg PO Q6 PRN; Protocol PRN Reason: Allergy symptoms Potassium Chloride 20 meq/ (Sodium Chloride) 1,010 mls @ 70 mls/hr IV .[id number] [facility] PRN Reason: Protocol Last Admin: 12/04/17 11:52 Dose: 70 mls/hr Heparin Sodium/Sodium Chloride (Heparin 26483 Units/250ml 1/2 Normal Saline) 25 ,000 units in 250 mls @ 7.054 mls/hr IV .Q24H [facility]; 9.6 U/KG/HR PRN Reason: Protocol Last Admin: 12/04/17 11:30 Dose: 9.6 u/kg/hr, 7.054 mls/hr Metoprolol Tartrate (Lopressor) 50 mg PO 0800,1800 [facility] PRN Reason: Protocol Last Admin: 12/04/17 07:50 Dose: 50 mg Montelukast Sodium (Singulair) 10 mg PO HS [facility] PRN Reason: Protocol Last Admin: 12/03/17 22:21 Dose: 10 mg Ondansetron HCl (Zofran Inj) 4 mg IVP Q6H PRN; Protocol PRN Reason: Nausea/Vomiting Oxycodone/Acetaminophen (Percocet 5/325 Mg Tab) 1 tab PO Q4H PRN; Protocol PRN Reason: severe pain Stop: 12/06/17 20:52 Sucralfate (Carafate Oral Susp) 1 gm PO 0600,1600 [facility] PRN Reason: Protocol Last Admin: 12/04/17 06:09 Dose: 1 gm Tramadol HCl (Ultram) 50 mg PO TID PRN; Protocol PRN Reason: moderate pain Vancomycin HCl (Vancocin 25 Mg/Ml (Oral Use)) 125 mg PO QID [facility] PRN Reason: Protocol Last Admin: 12/04/17 09:14 Dose: 125 mg - Labs Labs: 12/04/17 07:15 12/04/17 07:15 PT 12.7 SECONDS (9.4-12.5) H 12/04/17 07:15 INR 1.10 (0.93-1.08) H 12/04/17 07:15 APTT 69.5 Seconds (25.1-36.5) H 12/04/17 07:15 - Constitutional Appears: No Acute Distress - Eye Exam Eye Exam: Normal appearance. absent: Scleral icterus - ENT Exam ENT Exam: Mucous Membranes Moist - Neck Exam Neck Exam: Normal Inspection - Respiratory Exam Respiratory Exam: NORMAL BREATHING PATTERN. absent: Respiratory Distress - Cardiovascular Exam Cardiovascular Exam: +S1, +S2 - GI/Abdominal Exam GI & Abdominal Exam: Soft, Normal Bowel Sounds. absent: Guarding, Tenderness, Organomegaly, Rebound - Extremities Exam Extremities Exam: absent: Calf Tenderness, Pedal Edema - Neurological Exam Neurological Exam: Alert, Awake, Oriented x3 - Skin Skin Exam: Dry, Warm Assessment and Plan - Assessment and Plan (Free Text) Assessment: Assessment: GI bleed, status post endoscopy found to have non bleeding gastric ulcer with clean base (zeke clase III) Anemia,CT abd/pelvis without contrast on 11/26/17 did not show any acute findings , patient received total 3 units pRBC, and 2 units FFP Diarrhea rule out C. difficile Mitral valve disease Paroxsymal atrial fibrillation Plan: On heparin drip per protocol, may start anticoagulation since no bleeding after 48 hours being on heparin, recommend Coumadin, anticoagulant as per PCP/ hematology, hemoglobin stable. Continue PPI currently on Protonix twice a day, and view of acute renal failure would recommend to DC on PPI daily in am and can take Zantac 150 mg in PM, discussed w/ patient. Patient would need repeat endoscopy in about 8 weeks to follow up healing of ulcers, discussed with patient Monitor H&H and monitor for overt GI bleed. Diet as tolerated pending stool for C. difficile Continue Flagyl and oral vancomycin Seen and discussed with Dr. Ramirez
[2017-12-04] MEDS: Albuterol-Ipratrop 3 mg / 0.5 (3 ml) UD IH PRN (13:05)
[2017-12-04] MEDS: Pantoprazole 40 mg EC Tab PO SCH (17:00)
[2017-12-04 18:06] LABS: HEMOGLOBIN 9.1 g/dL (12.0-16.0)
--- NOTE | 2017-12-04 19:16 | CP.PCM.CON ---
History of Present Illness - History of Present Illness History of Present Illness: 62 year old female with PMH of atrial fibrillation, asthma, HTN, severe mitral regurgitation S/P mitral valve replacement, esophageal ulcers, carpal tunnel syndrome, COPD, dyslipidemia, S/P cholecystectomy, S/P foot surgery initially came in to [facility] [place] because of gastrointestinal bleeding. Patient received conservative management for this. She also had loose bowel movement. Urine cx were done which showed ESBL E. coli in the urine but patient did not have symptoms. Patient is now transferred to [facility] for continued medical therapy and physical therapy. Infectious Diseases consult is requested to further evaluate and manage. Currently the patient is comfortable in bed, no fever or chills, no nausea or vomiting, no chest pain, no SOB, no cough or rhinorrhea, no abdominal pain, currently no diarrhea, no dysuria. Review of Systems - Review of Systems All systems: reviewed and no additional remarkable complaints except (as per HPI ) Past Patient History - Infectious Disease Hx of Infectious Diseases: None - Tetanus Immunizations Tetanus Immunization: Unknown - Past Social History Smoking Status: Never Smoked - CARDIAC Hx Cardiac Disorders: Yes (mitral valve disease) - PULMONARY Hx Chronic Obstructive Pulmonary Disease (COPD): Yes - NEUROLOGICAL Hx Neurological Disorder: Yes Hx Dizziness: Yes Hx Migraine: Yes - HEENT Hx HEENT Problems: No - RENAL Hx Chronic Kidney Disease: No - ENDOCRINE/METABOLIC Hx Endocrine Disorders: No - HEMATOLOGICAL/ONCOLOGICAL Hx Blood Transfusions: Yes Hx Blood Transfusion Reaction: No - INTEGUMENTARY Hx Dermatological Problems: No - MUSCULOSKELETAL/RHEUMATOLOGICAL Hx Falls: Yes - GASTROINTESTINAL Hx Gastrointestinal Disorders: Yes - GENITOURINARY/GYNECOLOGICAL Hx Genitourinary Disorders: No Hx Reproductive Disorders: No - PSYCHIATRIC Hx Psychophysiologic Disorder: No Hx Emotional Abuse: No Hx Physical Abuse: No Hx Substance Use: No - SURGICAL HISTORY Hx Surgeries: Yes (BILATERAL BUNION SX,LEFT CARPAL TUNNEL SX,CARD CATH) - ANESTHESIA Hx Anesthesia Reactions: No Hx Malignant Hyperthermia: No Meds Allergies/Adverse Reactions: Allergies Allergy/AdvReac Type Severity Reaction Status Date / Time cinnamon Allergy Intermediate ANAPHYLAXIS Verified 12/03/17 20:33 - Medications Medications: Current Medications Acetaminophen (Tylenol 325mg Tab) 650 mg PO Q4H PRN; Protocol PRN Reason: mild pain Albuterol/Ipratropium (Duoneb 3 Mg/0.5 Mg (3 Ml) Ud) 3 ml IH [id number] PRN; Protocol PRN Reason: Shortness of Breath Aspirin (Aspirin Chewable) 81 mg PO DAILY [facility] PRN Reason: Protocol Diltiazem HCl (Cardizem Cd) 120 mg PO DAILY [facility] PRN Reason: Protocol Diphenhydramine HCl (Benadryl) 25 mg PO Q6 PRN; Protocol PRN Reason: Allergy symptoms Potassium Chloride 20 meq/ (Sodium Chloride) 1,010 mls @ 70 mls/hr IV .[id number] [facility] PRN Reason: Protocol Last Admin: 12/03/17 22:22 Dose: 70 mls/hr Pantoprazole Sodium (Protonix 40mg Ivpb) 40 mg in 100 mls @ 200 mls/hr IVPB Q12 [facility] PRN Reason: Protocol Last Admin: 12/03/17 22:22 Dose: 200 mls/hr Heparin Sodium/Sodium Chloride (Heparin 65523 Units/250ml 1/2 Normal Saline) 25 ,000 units in 250 mls @ 8 mls/hr IV .Q24H PRN; Protocol PRN Reason: ADJUST RATE PER PROTOCOL Metoprolol Tartrate (Lopressor) 50 mg PO 0800,1800 [facility] PRN Reason: Protocol Montelukast Sodium (Singulair) 10 mg PO HS [facility] PRN Reason: Protocol Last Admin: 12/03/17 22:21 Dose: 10 mg Ondansetron HCl (Zofran Inj) 4 mg IVP Q6H PRN; Protocol PRN Reason: Nausea/Vomiting Oxycodone/Acetaminophen (Percocet 5/325 Mg Tab) 1 tab PO Q4H PRN; Protocol PRN Reason: severe pain Stop: 12/06/17 20:52 Sucralfate (Carafate Oral Susp) 1 gm PO 0600,1600 [facility] PRN Reason: Protocol Last Admin: 12/04/17 06:09 Dose: 1 gm Tramadol HCl (Ultram) 50 mg PO TID PRN; Protocol PRN Reason: moderate pain Vancomycin HCl (Vancocin 25 Mg/Ml (Oral Use)) 125 mg PO QID [facility] PRN Reason: Protocol Last Admin: 12/03/17 22:20 Dose: 125 mg Physical Exam - Constitutional Appears: Chronically Ill - Head Exam Head Exam: NORMAL INSPECTION - Neck Exam Neck exam: Negative for: Meningismus - Respiratory Exam Respiratory Exam: Decreased Breath Sounds - Cardiovascular Exam Cardiovascular Exam: +S1, +S2 - GI/Abdominal Exam GI & Abdominal Exam: Soft. absent: Tenderness Results - Vital Signs Recent Vital Signs: Last Vital Signs Temp 98 F 12/04/17 06:30 Pulse 72 12/04/17 06:30 Resp 18 12/04/17 06:30 BP 124/70 12/04/17 06:30 Pulse Ox 98 12/04/17 06:30 - Labs Result Diagrams: 12/04/17 18:01 12/04/17 07:15 Labs: Laboratory Results - last 24 hr 12/03/17 22:00 Urine Color Yellow Urine Appearance Turbid Urine pH 6.0 Ur Specific Ola 1.015 Urine Protein Trace H Urine Glucose (UA) Negative Urine Ketones Negative Urine Blood Moderate H Urine Nitrate Positive H Urine Bilirubin Negative Urine Urobilinogen 0.2 Ur Leukocyte Esterase Trace H Urine RBC 1 - 3 Urine WBC 0 - 2 Assessment & Plan - Assessment and Plan (Free Text) Plan: Assessment asymptomatic bacteriuria with ESBL E. coli loose bowel movements, R/O C. diff. infection S/P GI bleeding chronic CHF severe mitral regurgitation S/P mitral valve replacement atrial fibrillation asthma HTN esophageal ulcers carpal tunnel syndrome COPD dyslipidemia atrial fibrillation S/P cholecystectomy S/P foot surgery Plan continue PO Vancomycin - follow up stool for C. diff. bacteria in the urine need not be treated will monitor clinically
[2017-12-05] MEDS: Pantoprazole 40 mg EC Tab PO SCH ×2 (05:24→17:53)
[2017-12-05] MEDS: Sucralfate 1 gm/10 ml Oral Susp UD PO SCH ×2 (05:24→17:52)
[2017-12-05 07:02] LABS: GRAN # 8.61 (1.4-6.5); GRAN % 87.8 % (50.0-68.0); HEMOGLOBIN 8.6 g/dL (12.0-16.0); LYMPH # 0.4 (1.2-3.4); LYMPH % 4.2 % (22.0-35.0); MEAN CELL VOLUME 88.9 fl (80.0-105.0); MEAN CORPUSCULAR HEMOGLOBIN 29.1 pg (25.0-35.0); MEAN CORPUSCULAR HGB CONC 32.7 g/dl (31.0-37.0); MEAN PLATELET VOLUME 9.6 fl (7.0-11.0); MONO # 0.8 (0.1-0.6); RBC 2.96 10^6/uL (3.5-6.1); RED CELL DISTRIBUTION WIDTH 15.8 % (11.5-14.5); WHITE BLOOD COUNT 9.8 10^3/ul (4.5-11.0)
[2017-12-05 07:07] LABS: IRON 75 ug/dL (45-180)
[2017-12-05 07:28] LABS: % IRON SATURATION 31 % (20-55); TOTAL IRON BINDING CAPACITY 247 ug/dL (265-497)
[2017-12-05 07:37] LABS: ALBUMIN 3.2 g/dL (3.0-4.8); ALT/SGPT 26 U/L (7-56); AST/SGOT 19 U/L (14-36); BLOOD UREA NITROGEN 22 mg/dL (7-21); CALCIUM 9.4 mg/dL (8.4-10.5); GFR AFRICAN-AMERICAN > 60; GFR NON-AFRICAN AMERICAN > 60
--- NOTE | 2017-12-05 08:14 | CON ---
DATE: 12/04/2017 This is [facility] consult on TCU. For Dr. Jimenez. CHIEF COMPLAINT: GI bleed, reconditioning. HISTORY OF PRESENT ILLNESS: The patient is a 62-year-old black female seems sitting up in bed, feeling significantly improved after recent transfer from the medical floor for reconditioning after being transfused 3 units of packed red blood cells for a ulcer, diagnosed by Dr. Ramirez as per EGD. However, the patient also has paroxysmal atrial fibrillation with a history of valve replacement at [facility] and was on Eliquis prior to her event. At present, the patient is resting comfortably, participating with TCU protocol, still on IV heparin with eventual transition back to Eliquis versus Coumadin as per Dr. Jimenez's recommendation after conversation and consultation with other consultants. ALLERGIES: THE PATIENT'S ALLERGIES ARE TO CINNAMON. MEDICATIONS: Include aspirin, Benadryl, Carafate, Cardizem, DuoNeb; heparin low-flow no boluses IV; Lopressor, Percocet, saline 70 mL an hour, Protonix, Singulair, Tylenol, tramadol, vancomycin, and Zofran. PAST MEDICAL HISTORY: Significant for paroxysmal atrial fibrillation; status post valve replacement at [facility] in [place]; COPD; asthma; lower extremity peripheral vascular disease; DJD of the knees; iron deficiency anemia; anticoagulation, on Eliquis for her chronic atrial fibrillation. Also, history of peptic ulcer disease, questionable noncompliance. FAMILY AND SOCIAL HISTORY: Nonsmoker. Non-ethanolic. Lives by herself. Otherwise, noncontributory. REVIEW OF SYSTEMS: A 12-point review of systems was done, which was negative to questioning except for items mentioned in history of present illness. OBJECTIVE: VITAL SIGNS: Temperature 98.6, pulse 72, respirations 18, blood pressure 141/65, with pulse ox of 98%. HEENT: Unremarkable. NECK: Supple. HEART: Regular rate. Occasional ectopic beat. LUNGS: Minimal decreased breath sounds at the bases. ABDOMEN: Soft and nontender. EXTREMITIES: Decreased the knees, status post aspiration of the joints of the knee. Faint +1 edema. NEUROLOGIC: Awake and alert. SKIN: Otherwise, warm, dry, and clear. LABORATORY DATA: The patient's labs were done with a white blood cell count of 7.3, hemoglobin 8.5, with a repeat of 9.1, hematocrit 27.6, platelet count of 358,000. Chem metabolic panel was done showing a normal chem metabolic panel with a potassium of 3.5, now repeated at 4 today. Her PTT was 60.5. ASSESSMENT: For this patient is that of deconditioning, GI bleed with nonbleeding antral ulcer on esophagogastroduodenoscopy, severe symptomatic anemia, status post transfusion of 3 units of packed cells, hypertension, chronic obstructive lung disease, paroxysmal atrial fibrillation, degenerative joint disease with knee pain, gouty arthritis, status post fall, no acute trauma. PLAN: For this patient after conversation with Dr. Jimenez is to monitor clinically as there was question of persistent drop in her hemoglobin; however, this will be monitored. We will also check her iron levels to see if she is a candidate for IV iron, with monitoring of her IV heparin, eventually transitioning to Eliquis versus Coumadin once she is stable. There will be no boluses with the heparin, as per her PTT as indicated. This is a complex patient with comprehensive, medically necessary and appropriate visit carried out in excess of 40 minutes [id number] time with this patient with her labs reviewed. The patient's questions answered to her satisfaction. Larry Mcdaniel MD
--- NOTE | 2017-12-05 09:11 | HP ---
REASON FOR ADMISSION: Generalized weakness, deconditioning, gait disorder and medical therapy. HISTORY OF PRESENT ILLNESS: Dariana Mcgregor, 62-year-old female admitted with anemia due to acute GI bleeding. The patient was seen by multiple consults including Dr. Ramirez, ulcer was not actively bleeding. She was transfused in ICU and was stabilized, was then transferred to the medical floor. She did have a pseudo acute gouty arthritis or pseudo gouty arthritis. She was given IV steroids, which do not help and the day of discharge was planned by Dr. Thomas Vines and fluid sent for analysis. The patient still has problem walking. She is on IV heparin by now. She will be on Coumadin at risk for draining and we explained to the patient. Since her discharge admitted to TCU for physical therapy. Primarily, she does not have any rectal bleeding. She is on IV Reglan, IV fluids. Seen by Dr. Nguyen. Acute renal failure and we will monitor the hemoglobin. She seems stable. She has no new complaint. PAST MEDICAL HISTORY: Paroxysmal atrial fibrillation, mitral valve replacement, biological valve, hypertension, COPD, chronic osteoarthritis, degenerative disk disease over lumbosacral area and bilateral knee osteoarthritis, pseudogout and history of acute renal failure, recurrent and also history of noncompliance with medications. ALLERGIES: CINNAMON. SOCIAL HISTORY: Nonsmoker. No drinking. Lives by herself. MEDICATIONS AT HOME: She was taking Eliquis 5 mg b.i.d.; however, she was compliant with Protonix when we tested and transferred the patient to the floor. She does take aspirin 81 mg once a day, diltiazem CD 120. She has inhalers and nebulizer treatment . The patient is also on Singulair, Tylenol, tramadol 50 t.i.d., Zofran p.r.n. and Vancocin 125 q.i.d. REVIEW OF SYSTEMS: As per the present illness. PHYSICAL EXAMINATION: VITAL SIGNS: The patient's temperature 98, heart rate 72, blood pressure 124/70, respirations 20, saturations 98%. HEAD AND NECK: Normal. No JVD. No thyromegaly. CHEST: Clear bilaterally. CARDIAC: First sound and second sound normal. ABDOMEN: Soft, nontender, obese. EXTREMITIES: No edema. Knee exam is still better, less tender, less swollen. All the extremities are better. Distal pulses improved. She can flex and extend both knees without any associated pain. NEUROLOGICAL: Normal. LABORATORY STUDIES: She has white count 7.6, hemoglobin 8.5, hematocrit 25.6, platelets 338. Chemistry: Sodium 137, potassium 4, chloride 107, bicarb 20, BUN 23, creatinine 0.9, blood sugar 2.1 and phosphorus and magnesium are normal. PT is 1.1, PTT 69.5. Urinalysis was positive nitrites, trace leukocytes, 0-2 white cells. The patient did have ESBL in the urine cultures. Another sample was sent. IMPRESSION: 1. Generalized weakness, deconditioning. Continue physical therapy. 2. Paroxysmal atrial fibrillation associated with Eliquis, was treated. Patient is also with IV heparin and monitoring her H&H. PLAN: 1. We will continue heparin. Monitor H&H. We will repeat that at 4:00 p.m. and in the morning. Hematology consult and they will see the patient for followup. 2. The patient has mitral valve repair, acute renal failure, hypertension. Dr. Cornejo will see the patient. Continue IV fluid. Continue current medication. We will follow up clinically. Repeat lab in the morning and discuss with the consults and repeat H&H at 04:00 p.m. to evaluate for any associated bleeding. It is possibly dilutional. The patient does not have any evidence of bleeding. Clinically, she does not have any rectal bleeding. Continue current management. Follow up clinically. Baltazar Guerra MD
[2017-12-05] MEDS: diltiaZEM 120 mg/24 Hours CD Cap PO SCH (09:28)
[2017-12-05] MEDS: Vancomycin 25 MG/ML PO SCH ×4 (09:28→21:27)
--- NOTE | 2017-12-05 09:31 | CP.PCM.PN ---
Subjective - Date & Time of Evaluation Date of Evaluation: 12/05/17 Time of Evaluation: 06:50 - Subjective Subjective: Awake, alert, denies shortness of breath, denies chest pain Reason for consultation: Continuity of care to TCU, cardiac follow up, history of mitral valve replacement (bioprosthetic) , Atrial fibrillation,was on eliquis ,COPD, asthma, GI bleeding, anemia requiring blood transfusion. Seen and examined by me and Dr. Beebe Objective - Vital Signs/Intake and Output Vital Signs (last 24 hours): Temp Pulse Resp BP Pulse Ox 98.3 F 80 20 168/90 H 98 12/05/17 05:41 12/05/17 05:41 12/05/17 05:41 12/05/17 08:11 12/04/17 06:30 Intake and Output: 12/05/17 12/05/17 06:59 18:59 Intake Total 250 Balance 250 - Medications Medications: Current Medications Acetaminophen (Tylenol 325mg Tab) 650 mg PO Q4H PRN; Protocol PRN Reason: mild pain Albuterol/Ipratropium (Duoneb 3 Mg/0.5 Mg (3 Ml) Ud) 3 ml IH [id number] PRN; Protocol PRN Reason: Shortness of Breath Last Admin: 12/04/17 13:05 Dose: 3 ml Diltiazem HCl (Cardizem Cd) 120 mg PO DAILY [facility] PRN Reason: Protocol Last Admin: 12/04/17 09:12 Dose: 120 mg Diphenhydramine HCl (Benadryl) 25 mg PO Q6 PRN; Protocol PRN Reason: Allergy symptoms Last Admin: 12/04/17 23:24 Dose: 25 mg Famotidine (Pepcid) 40 mg PO HS [facility] Heparin Sodium/Sodium Chloride (Heparin 46219 Units/250ml 1/2 Normal Saline) 25 ,000 units in 250 mls @ 7.054 mls/hr IV .Q24H [facility]; 9.6 U/KG/HR PRN Reason: Protocol Last Admin: 12/04/17 19:41 Dose: 9.6 u/kg/hr, 7.054 mls/hr Metoprolol Tartrate (Lopressor) 50 mg PO 0800,1800 [facility] PRN Reason: Protocol Last Admin: 12/05/17 08:11 Dose: 50 mg Montelukast Sodium (Singulair) 10 mg PO HS [facility] PRN Reason: Protocol Last Admin: 12/04/17 21:00 Dose: 10 mg Ondansetron HCl (Zofran Inj) 4 mg IVP Q6H PRN; Protocol PRN Reason: Nausea/Vomiting Oxycodone/Acetaminophen (Percocet 5/325 Mg Tab) 1 tab PO Q4H PRN; Protocol PRN Reason: severe pain Stop: 12/06/17 20:52 Pantoprazole Sodium (Protonix Ec Tab) 40 mg PO 0600,1600 [facility] Last Admin: 12/05/17 05:24 Dose: 40 mg Sucralfate (Carafate Oral Susp) 1 gm PO 0600,1600 [facility] PRN Reason: Protocol Last Admin: 12/05/17 05:24 Dose: 1 gm Tramadol HCl (Ultram) 50 mg PO TID PRN; Protocol PRN Reason: moderate pain Vancomycin HCl (Vancocin 25 Mg/Ml (Oral Use)) 125 mg PO QID [facility] PRN Reason: Protocol Last Admin: 12/04/17 21:01 Dose: 125 mg - Labs Labs: 12/05/17 06:40 12/05/17 06:40 PT 12.7 SECONDS (9.4-12.5) H 12/04/17 07:15 INR 1.10 (0.93-1.08) H 12/04/17 07:15 APTT 54.0 Seconds (25.1-36.5) H 12/05/17 06:40 - Constitutional Appears: No Acute Distress - Eye Exam Eye Exam: Normal appearance - ENT Exam ENT Exam: Mucous Membranes Moist - Respiratory Exam Respiratory Exam: Clear to Ausculation Bilateral, NORMAL BREATHING PATTERN - Cardiovascular Exam Cardiovascular Exam: +S1, +S2 - GI/Abdominal Exam GI & Abdominal Exam: Soft, Normal Bowel Sounds Additional comments: denies tarry stools - Extremities Exam Extremities Exam: Normal Capillary Refill Additional comments: less knee swelling ,denies pain - Neurological Exam Neurological Exam: Alert, Awake, Oriented x3 - Psychiatric Exam Psychiatric exam: Normal Affect, Normal Mood - Skin Skin Exam: Intact, Normal Color, Warm Assessment and Plan - Assessment and Plan (Free Text) Assessment: A 62 year old female who came in to the ER due to shortness of breath and complaining of tarry stools. Hemoglobin showed to be low (6.7) and blood were transfused. Endoscopy showed large gastric ulcer. Eliquis was discontinued and heparin drip was started. Developed gout on both knees and steroid injection done. Had an episode of fall 2 days ago trying to get up and knees gave up. Transferred to TCU for reconditioning.Physical therapy Plan: Physical therapy in progress Claimed to be feeling better, knees better On Heparin drip, To switch to Xarelto PTT level per protocol Claimed to have no more tarry stools had loose bowel movement () sent for C-diff Started on Vancomycin po ID consult Fall precaution Continue current treatment Continue current medications Discharge planning Will follow up Plan and treatment discussed with Dr. Beebe
[2017-12-05 11:19] LABS: GRAN # 8.04 (1.4-6.5); HEMOGLOBIN 8.5 g/dL (12.0-16.0); LYMPH % 10.6 % (22.0-35.0); MEAN CELL VOLUME 89.5 fl (80.0-105.0); MEAN CORPUSCULAR HEMOGLOBIN 28.9 pg (25.0-35.0); MEAN CORPUSCULAR HGB CONC 32.3 g/dl (31.0-37.0); MEAN PLATELET VOLUME 9.7 fl (7.0-11.0); MONO # 0.3 (0.1-0.6); MONO % 3.4 % (1.0-6.0); RBC 2.94 10^6/uL (3.5-6.1); RED CELL DISTRIBUTION WIDTH 15.8 % (11.5-14.5); WHITE BLOOD COUNT 9.4 10^3/ul (4.5-11.0)
--- NOTE | 2017-12-05 11:56 | CP.PCM.PN ---
Subjective - Date & Time of Evaluation Date of Evaluation: 12/05/17 Time of Evaluation: 10:45 - Subjective Subjective: No diarrhea, no dysuria, no abdominal pain. Objective - Vital Signs/Intake and Output Vital Signs (last 24 hours): Temp Pulse Resp BP Pulse Ox 98.3 F 80 20 168/90 H 98 12/05/17 05:41 12/05/17 05:41 12/05/17 05:41 12/05/17 05:41 12/04/17 06:30 Intake and Output: 12/04/17 12/05/17 18:59 06:59 Intake Total 250 Balance 250 - Medications Medications: Current Medications Acetaminophen (Tylenol 325mg Tab) 650 mg PO Q4H PRN; Protocol PRN Reason: mild pain Albuterol/Ipratropium (Duoneb 3 Mg/0.5 Mg (3 Ml) Ud) 3 ml IH [id number] PRN; Protocol PRN Reason: Shortness of Breath Last Admin: 12/04/17 13:05 Dose: 3 ml Aspirin (Aspirin Chewable) 81 mg PO 0800 [facility] PRN Reason: Protocol Diltiazem HCl (Cardizem Cd) 120 mg PO DAILY [facility] PRN Reason: Protocol Last Admin: 12/04/17 09:12 Dose: 120 mg Diphenhydramine HCl (Benadryl) 25 mg PO Q6 PRN; Protocol PRN Reason: Allergy symptoms Last Admin: 12/04/17 23:24 Dose: 25 mg Potassium Chloride 20 meq/ (Sodium Chloride) 1,010 mls @ 70 mls/hr IV .[id number] [facility] PRN Reason: Protocol Last Admin: 12/05/17 01:41 Dose: Not Given Heparin Sodium/Sodium Chloride (Heparin 22083 Units/250ml 1/2 Normal Saline) 25 ,000 units in 250 mls @ 7.054 mls/hr IV .Q24H GUALBERTO; 9.6 U/KG/HR PRN Reason: Protocol Last Admin: 12/04/17 19:41 Dose: 9.6 u/kg/hr, 7.054 mls/hr Metoprolol Tartrate (Lopressor) 50 mg PO 0800,1800 [facility] PRN Reason: Protocol Last Admin: 12/04/17 17:01 Dose: 50 mg Montelukast Sodium (Singulair) 10 mg PO HS [facility] PRN Reason: Protocol Last Admin: 12/04/17 21:00 Dose: 10 mg Ondansetron HCl (Zofran Inj) 4 mg IVP Q6H PRN; Protocol PRN Reason: Nausea/Vomiting Oxycodone/Acetaminophen (Percocet 5/325 Mg Tab) 1 tab PO Q4H PRN; Protocol PRN Reason: severe pain Stop: 12/06/17 20:52 Pantoprazole Sodium (Protonix Ec Tab) 40 mg PO 0600,1600 [facility] Last Admin: 12/05/17 05:24 Dose: 40 mg Sucralfate (Carafate Oral Susp) 1 gm PO 0600,1600 [facility] PRN Reason: Protocol Last Admin: 12/05/17 05:24 Dose: 1 gm Tramadol HCl (Ultram) 50 mg PO TID PRN; Protocol PRN Reason: moderate pain Vancomycin HCl (Vancocin 25 Mg/Ml (Oral Use)) 125 mg PO QID [facility] PRN Reason: Protocol Last Admin: 12/04/17 21:01 Dose: 125 mg - Labs Labs: 12/04/17 18:01 12/04/17 07:15 PT 12.7 SECONDS (9.4-12.5) H 12/04/17 07:15 INR 1.10 (0.93-1.08) H 12/04/17 07:15 APTT 60.6 Seconds (25.1-36.5) H 12/04/17 18:01 - Constitutional Appears: Non-toxic, Chronically Ill - Head Exam Head Exam: NORMAL INSPECTION - Respiratory Exam Respiratory Exam: Decreased Breath Sounds - Cardiovascular Exam Cardiovascular Exam: +S1, +S2 - GI/Abdominal Exam GI & Abdominal Exam: Soft. absent: Tenderness Assessment and Plan - Assessment and Plan (Free Text) Plan: Assessment asymptomatic bacteriuria with ESBL E. coli loose bowel movements, R/O C. diff. infection S/P GI bleeding chronic CHF severe mitral regurgitation S/P mitral valve replacement atrial fibrillation asthma HTN esophageal ulcers carpal tunnel syndrome COPD dyslipidemia atrial fibrillation S/P cholecystectomy S/P foot surgery Plan continue PO Vancomycin day 4 - follow up stool for C. diff. bacteria in the urine need not be treated will continue to monitor clinically
[2017-12-05] MEDS: Albuterol-Ipratrop 3 mg / 0.5 (3 ml) UD IH PRN (13:12)
[2017-12-05] MEDS: Heparin25000 units/250ml 1/2NS 25,000 UNITS/250 ML BAG IV SCH (13:46)
--- NOTE | 2017-12-05 15:50 | CP.PCM.PN ---
<Kiley John - Last Filed: 12/05/17 15:50> Subjective - Date & Time of Evaluation Date of Evaluation: 12/05/17 Time of Evaluation: 10:10 - Subjective Subjective: Seen and examined at the bedside earlier today, chart review. No further episodes of diarrhea, last BM was yesterday which was soft, no reports of melena or bright red blood per rectum. Denies nausea, vomiting, or abdominal pain. Patient started on Coumadin last night. Objective - Vital Signs/Intake and Output Vital Signs (last 24 hours): Temp Pulse Resp BP Pulse Ox 97.6 F 58 L 20 145/77 98 12/05/17 10:00 12/05/17 10:00 12/05/17 10:00 12/05/17 10:00 12/04/17 06:30 Intake and Output: 12/05/17 12/05/17 06:59 18:59 Intake Total 250 Balance 250 - Medications Medications: Current Medications Acetaminophen (Tylenol 325mg Tab) 650 mg PO Q4H PRN; Protocol PRN Reason: mild pain Albuterol/Ipratropium (Duoneb 3 Mg/0.5 Mg (3 Ml) Ud) 3 ml IH [id number] PRN; Protocol PRN Reason: Shortness of Breath Last Admin: 12/04/17 13:05 Dose: 3 ml Diltiazem HCl (Cardizem Cd) 120 mg PO DAILY [facility] PRN Reason: Protocol Last Admin: 12/05/17 09:28 Dose: 120 mg Diphenhydramine HCl (Benadryl) 25 mg PO Q6 PRN; Protocol PRN Reason: Allergy symptoms Last Admin: 12/04/17 23:24 Dose: 25 mg Heparin Sodium/Sodium Chloride (Heparin 98152 Units/250ml 1/2 Normal Saline) 25 ,000 units in 250 mls @ 7.054 mls/hr IV .Q24H GUALBRETO; 9.6 U/KG/HR PRN Reason: Protocol Last Admin: 12/04/17 19:41 Dose: 9.6 u/kg/hr, 7.054 mls/hr Metoprolol Tartrate (Lopressor) 50 mg PO 0800,1800 [facility] PRN Reason: Protocol Last Admin: 12/05/17 08:11 Dose: 50 mg Montelukast Sodium (Singulair) 10 mg PO HS [facility] PRN Reason: Protocol Last Admin: 12/04/17 21:00 Dose: 10 mg Ondansetron HCl (Zofran Inj) 4 mg IVP Q6H PRN; Protocol PRN Reason: Nausea/Vomiting Oxycodone/Acetaminophen (Percocet 5/325 Mg Tab) 1 tab PO Q4H PRN; Protocol PRN Reason: severe pain Stop: 12/06/17 20:52 Pantoprazole Sodium (Protonix Ec Tab) 40 mg PO 0600,1600 [facility] Last Admin: 12/05/17 05:24 Dose: 40 mg Sucralfate (Carafate Oral Susp) 1 gm PO 0600,1600 [facility] PRN Reason: Protocol Last Admin: 12/05/17 05:24 Dose: 1 gm Tramadol HCl (Ultram) 50 mg PO TID PRN; Protocol PRN Reason: moderate pain Vancomycin HCl (Vancocin 25 Mg/Ml (Oral Use)) 125 mg PO QID [facility] PRN Reason: Protocol Last Admin: 12/05/17 09:28 Dose: 125 mg - Labs Labs: 12/05/17 06:40 12/05/17 06:40 PT 12.7 SECONDS (9.4-12.5) H 12/04/17 07:15 INR 1.10 (0.93-1.08) H 12/04/17 07:15 APTT 54.0 Seconds (25.1-36.5) H 12/05/17 06:40 - Constitutional Appears: No Acute Distress - Eye Exam Eye Exam: Normal appearance. absent: Scleral icterus - ENT Exam ENT Exam: Mucous Membranes Moist - Neck Exam Neck Exam: Normal Inspection - Respiratory Exam Respiratory Exam: NORMAL BREATHING PATTERN. absent: Respiratory Distress - Cardiovascular Exam Cardiovascular Exam: +S1, +S2 - GI/Abdominal Exam GI & Abdominal Exam: Soft, Normal Bowel Sounds. absent: Guarding (all), Tenderness, Rebound - Extremities Exam Extremities Exam: absent: Calf Tenderness, Pedal Edema - Neurological Exam Neurological Exam: Alert, Awake, Oriented x3 - Skin Skin Exam: Dry, Warm Assessment and Plan - Assessment and Plan (Free Text) Assessment: Assessment: GI bleed, status post endoscopy found to have non bleeding gastric ulcer with clean base (zeke clase III) Anemia,CT abd/pelvis without contrast on 11/26/17 did not show any acute findings , patient received total 3 units pRBC, and 2 units FFP Diarrhea rule out C. difficile Mitral valve disease Paroxsymal atrial fibrillation Plan: On heparin drip per protocol, given a dose of Coumadin yesterday. Continue PPI currently on Protonix twice a day, and in view of acute renal failure which has now resolved on discharge would recommend to DC on PPI daily in am and can take Zantac 150 mg in PM, discussed w/ patient. Patient would need repeat endoscopy in about 8 weeks to follow up healing of ulcers, discussed with patient Monitor H&H and monitor for overt GI bleed. Diet as tolerated pending stool for C. difficile, diarrhea improved but likely has Cdiff, now improved on oral vancomycin Continue oral vancomycin Seen and discussed with Dr. Ramirez <Sun Ramirez V - Last Filed: 12/05/17 22:19> Objective - Vital Signs/Intake and Output Vital Signs (last 24 hours): Temp Pulse Resp BP Pulse Ox 98 F 66 20 137/80 100 12/05/17 16:00 12/05/17 16:00 12/05/17 20:50 12/05/17 17:53 12/05/17 16:00 - Medications Medications: Current Medications Acetaminophen (Tylenol 325mg Tab) 650 mg PO Q4H PRN; Protocol PRN Reason: mild pain Albuterol/Ipratropium (Duoneb 3 Mg/0.5 Mg (3 Ml) Ud) 3 ml IH [id number] PRN; Protocol PRN Reason: Shortness of Breath Last Admin: 12/05/17 13:12 Dose: 3 ml Diltiazem HCl (Cardizem Cd) 120 mg PO DAILY [facility] PRN Reason: Protocol Last Admin: 12/05/17 09:28 Dose: 120 mg Diphenhydramine HCl (Benadryl) 25 mg PO Q6 PRN; Protocol PRN Reason: Allergy symptoms Last Admin: 12/05/17 21:29 Dose: 25 mg Heparin Sodium/Sodium Chloride (Heparin 92526 Units/250ml 1/2 Normal Saline) 25 ,000 units in 250 mls @ 7.054 mls/hr IV .Q24H [facility]; 9.6 U/KG/HR PRN Reason: Protocol Last Admin: 12/05/17 13:46 Dose: Not Given Metoprolol Tartrate (Lopressor) 50 mg PO 0800,1800 [facility] PRN Reason: Protocol Last Admin: 12/05/17 17:53 Dose: 50 mg Montelukast Sodium (Singulair) 10 mg PO HS [facility] PRN Reason: Protocol Last Admin: 12/05/17 21:27 Dose: 10 mg Ondansetron HCl (Zofran Inj) 4 mg IVP Q6H PRN; Protocol PRN Reason: Nausea/Vomiting Oxycodone/Acetaminophen (Percocet 5/325 Mg Tab) 1 tab PO Q4H PRN; Protocol PRN Reason: severe pain Stop: 12/06/17 20:52 Pantoprazole Sodium (Protonix Ec Tab) 40 mg PO 0600,1600 [facility] Last Admin: 12/05/17 17:53 Dose: 40 mg Sucralfate (Carafate Oral Susp) 1 gm PO 0600,1600 [facility] PRN Reason: Protocol Last Admin: 12/05/17 17:52 Dose: 1 gm Tramadol HCl (Ultram) 50 mg PO TID PRN; Protocol PRN Reason: moderate pain Vancomycin HCl (Vancocin 25 Mg/Ml (Oral Use)) 125 mg PO QID [facility] PRN Reason: Protocol Last Admin: 12/05/17 21:27 Dose: 125 mg Warfarin Sodium (Coumadin) 7.5 mg PO 1800 [facility] PRN Reason: Protocol Last Admin: 12/05/17 17:52 Dose: 7.5 mg - Labs Labs: 12/05/17 11:13 12/05/17 06:40 PT 12.7 SECONDS (9.4-12.5) H 12/04/17 07:15 INR 1.10 (0.93-1.08) H 12/04/17 07:15 APTT 54.6 Seconds (25.1-36.5) H 12/05/17 11:13 Attending/Attestation - Attestation I have personally seen and examined this patient.: Yes I have fully participated in the care of the patient.: Yes I have reviewed all pertinent clinical information, including history, physical exam and plan: Yes Notes (Text): This is an addendum to GI progress report dictated by Kiley John APN.The patient was seen and examined earlier. Medical records, lab studies, imagings were reviewed. Last 24 hours events reviewed. Agreed with the above treatment plan as outlined in Kiley John APN's notes the with the addition of the following 12/05/17 22:19
--- NOTE | 2017-12-05 22:07 | PN ---
DATE: 12/05/2017 This is [facility] visit on TCU. For, Dr. Jimenez. SUBJECTIVE: The patient is a 62-year-old female seen sitting up in bed for reconditioning on TCU after being transferred from the medical floor. The patient has significant anemic indices, being transfused 3 units of packed red blood cells for an ulcer diagnosed by Dr. Ramirez by EGD. Unfortunately, the patient also suffers from paroxysmal atrial fibrillation and had been on Eliquis prior to her GI bleed. Since then, she has been on IV heparin low flow with no boluses as per Dr. Ramirez's recommendations with now to be restarted on Coumadin so that her PT/INR maybe monitored so that she is not over anticoagulated as Eliquis cannot be measured with a PT/INR or PTT as heparin and Coumadin can be monitored. Otherwise, the patient is in no acute distress this visit. Her appetite is improved. OBJECTIVE PHYSICAL EXAMINATION: VITAL SIGNS: Temperature 98, pulse 66, respirations 18, blood pressure is 137/80, pulse ox of 100%. HEENT: Unremarkable. NECK: Supple. HEART: Regular rate. Occasional ectopic beat. LUNGS: Minimal decreased breath sounds at the bases. ABDOMEN: Soft, nontender. EXTREMITIES: Decreased range of motion at the knees status post injection as per Dr. Vines with aspiration of the knee. NEUROLOGIC: She is awake and alert. SKIN: Otherwise, warm, dry and clear. LABORATORY DATA: The patient's labs were done. White blood cell count of 9.4; hemoglobin of 8.5 after repeated, 8.6 earlier today with a hematocrit of 26.3; platelet count of 420,000. Her chem metabolic panel was within normal range except for chloride of 113, BUN of 22 with normal creatinine of 0.9. This has slowly improved with IV fluids as per Dr. Guerra and previous consult with Dr. Hernandez. Her most recent PTT is 54.6 with an INR done yesterday of 1.1 with Coumadin now begun. Her repeat stool for occult blood today was negative. ASSESSMENT: The assessment for this patient is that of gastrointestinal bleed, status post transfusions of 3 units of packed red blood cells; paroxysmal atrial fibrillation with anticoagulation; acute renal failure, possibly secondary to dehydration, now improved with hydration; gait disturbance with degenerative joint disease of the knees, status post injection; deconditioning; gouty arthritis history; hypertension; chronic obstructive pulmonary disease. PLAN: Plan for this patient after conversation with Dr. Jimenez is to continue present medical regimen. We also spoke with Dr. Guerra regarding restarting her Coumadin as this was recommended over Eliquis as it may be monitored as far as efficacy with an INR to be maintained with therapeutic range between 2 and 3 as indicated. The heparin will continue until the Coumadin is therapeutic. We will monitor for bleeding including CBC as indicated and chem panel as indicated. The prognosis for this patient is guarded. We will monitor clinically and with labs. Larry Mcdaniel MD
[2017-12-06] MEDS: Heparin25000 units/250ml 1/2NS 25,000 UNITS/250 ML BAG IV SCH ×2 (05:00→12:20)
[2017-12-06] MEDS: Sucralfate 1 gm/10 ml Oral Susp UD PO SCH ×2 (05:05→17:19)
[2017-12-06] MEDS: Pantoprazole 40 mg EC Tab PO SCH ×2 (05:05→17:22)
--- NOTE | 2017-12-06 07:07 | CP.PCM.PN ---
Subjective - Date & Time of Evaluation Date of Evaluation: 12/06/17 Time of Evaluation: 06:15 - Subjective Subjective: Sleeping easily awaken, alert, denies shortness of breath, denies chest pain Reason for consultation: Continuity of care to TCU, cardiac follow up, history of mitral valve replacement (bioprosthetic) , Atrial fibrillation,was on eliquis ,COPD, asthma, GI bleeding, anemia requiring blood transfusion. Seen and examined by me and Dr. Beebe Objective - Vital Signs/Intake and Output Vital Signs (last 24 hours): Temp Pulse Resp BP Pulse Ox 98 F 66 20 137/80 100 12/05/17 16:00 12/05/17 16:00 12/05/17 20:50 12/05/17 17:53 12/05/17 16:00 Intake and Output: 12/06/17 12/06/17 06:59 18:59 Intake Total 250 Balance 250 - Medications Medications: Current Medications Acetaminophen (Tylenol 325mg Tab) 650 mg PO Q4H PRN; Protocol PRN Reason: mild pain Albuterol/Ipratropium (Duoneb 3 Mg/0.5 Mg (3 Ml) Ud) 3 ml IH [id number] PRN; Protocol PRN Reason: Shortness of Breath Last Admin: 12/05/17 13:12 Dose: 3 ml Diltiazem HCl (Cardizem Cd) 120 mg PO DAILY [facility] PRN Reason: Protocol Last Admin: 12/05/17 09:28 Dose: 120 mg Diphenhydramine HCl (Benadryl) 25 mg PO Q6 PRN; Protocol PRN Reason: Allergy symptoms Last Admin: 12/05/17 21:29 Dose: 25 mg Heparin Sodium/Sodium Chloride (Heparin 25896 Units/250ml 1/2 Normal Saline) 25 ,000 units in 250 mls @ 7.054 mls/hr IV .Q24H [facility]ERTO; 9.6 U/KG/HR PRN Reason: Protocol Last Admin: 12/06/17 05:00 Dose: 9.6 u/kg/hr, 7.054 mls/hr Metoprolol Tartrate (Lopressor) 50 mg PO 0800,1800 [facility] PRN Reason: Protocol Last Admin: 12/05/17 17:53 Dose: 50 mg Montelukast Sodium (Singulair) 10 mg PO HS [facility] PRN Reason: Protocol Last Admin: 12/05/17 21:27 Dose: 10 mg Ondansetron HCl (Zofran Inj) 4 mg IVP Q6H PRN; Protocol PRN Reason: Nausea/Vomiting Oxycodone/Acetaminophen (Percocet 5/325 Mg Tab) 1 tab PO Q4H PRN; Protocol PRN Reason: severe pain Stop: 12/06/17 20:52 Pantoprazole Sodium (Protonix Ec Tab) 40 mg PO 0600,1600 [facility] Last Admin: 12/06/17 05:05 Dose: 40 mg Sucralfate (Carafate Oral Susp) 1 gm PO 0600,1600 [facility] PRN Reason: Protocol Last Admin: 12/06/17 05:05 Dose: 1 gm Tramadol HCl (Ultram) 50 mg PO TID PRN; Protocol PRN Reason: moderate pain Vancomycin HCl (Vancocin 25 Mg/Ml (Oral Use)) 125 mg PO QID [facility] PRN Reason: Protocol Last Admin: 12/05/17 21:27 Dose: 125 mg Warfarin Sodium (Coumadin) 7.5 mg PO 1800 [facility] PRN Reason: Protocol Last Admin: 12/05/17 17:52 Dose: 7.5 mg - Labs Labs: 12/05/17 11:13 12/05/17 06:40 PT 12.7 SECONDS (9.4-12.5) H 12/04/17 07:15 INR 1.10 (0.93-1.08) H 12/04/17 07:15 APTT 54.6 Seconds (25.1-36.5) H 12/05/17 11:13 - Constitutional Appears: No Acute Distress - Head Exam Head Exam: NORMOCEPHALIC - Eye Exam Eye Exam: Normal appearance - ENT Exam ENT Exam: Mucous Membranes Moist - Respiratory Exam Respiratory Exam: Decreased Breath Sounds, NORMAL BREATHING PATTERN - Cardiovascular Exam Cardiovascular Exam: +S1, +S2 - GI/Abdominal Exam GI & Abdominal Exam: Soft, Normal Bowel Sounds - Extremities Exam Extremities Exam: Normal Capillary Refill Additional comments: knee less swelling 1+edema - Neurological Exam Neurological Exam: Alert, Awake, Oriented x3 - Psychiatric Exam Psychiatric exam: Normal Affect, Normal Mood - Skin Skin Exam: Intact, Normal Color, Warm Assessment and Plan - Assessment and Plan (Free Text) Assessment: A 62 year old female who came in to the ER due to shortness of breath and complaining of tarry stools. Hemoglobin showed to be low (6.7) and blood were transfused. Endoscopy showed large gastric ulcer. Eliquis was discontinued and heparin drip was started. Developed gout on both knees and steroid injection done. Had an episode of fall 2 days ago trying to get up and knees gave up. Transferred to TCU for reconditioning.Physical therapy Plan: On Heparin drip, started on Coumadin yesterday once therapeutic will discontinue heparin drip Able to monitor INR level better with Coumadin Denies loose bowel movement or melena had loose bowel movement () sent for C-diff Started on Vancomycin po ID on consult GI on consult Repeat endoscopy in 8 weeks per GI Fall precaution Physical therapy in progress Continue current treatment Continue current medications Discharge planning Will follow up Plan and treatment discussed with Dr. Beebe
[2017-12-06 07:27] LABS: EOS % 0.2 % (1.5-5.0); GRAN # 7.72 (1.4-6.5); GRAN % 81.4 % (50.0-68.0); HEMOGLOBIN 8.3 g/dL (12.0-16.0); LYMPH # 0.8 (1.2-3.4); LYMPH % 8.2 % (22.0-35.0); MEAN CELL VOLUME 89.1 fl (80.0-105.0); MEAN CORPUSCULAR HEMOGLOBIN 29.1 pg (25.0-35.0); MEAN CORPUSCULAR HGB CONC 32.7 g/dl (31.0-37.0); MEAN PLATELET VOLUME 9.2 fl (7.0-11.0); MONO % 10.2 % (1.0-6.0); RBC 2.85 10^6/uL (3.5-6.1); RED CELL DISTRIBUTION WIDTH 15.9 % (11.5-14.5); WHITE BLOOD COUNT 9.5 10^3/ul (4.5-11.0)
[2017-12-06 07:47] LABS: PROTHROMBIN TIME 16.5 SECONDS (9.4-12.5)
[2017-12-06 07:48] LABS: INR 1.42 (0.93-1.08); PARTIAL THROMBOPLASTIN TIME 57.1 Seconds (25.1-36.5)
--- NOTE | 2017-12-06 08:09 | PN ---
DATE: 12/05/2017 TYPE OF DICTATION: Addendum to the initial progress note dictated by a nurse practitioner, Maira Rosenthal. REASON FOR ADDENDUM: As discussed yesterday with Dr. Guerra, they will start Xarelto, but since antidote is not available, so plan has changed, we will start Coumadin and once antidote off Xarelto and Eliquis is available in a month, and the patient shows noncompliance again, then we will switch over to Xarelto or Eliquis. As the patient is very noncompliant that is why after Coumadin, the patient was started on Eliquis, the patient has a GI bleed and since so far no antidote is available, we will put back on Coumadin and close follow up with Dr. Guerra to monitor PT/INR as the patient has a paroxysmal atrial fibrillation. If the patient shows again the sign of noncompliance in a month, we will consider adding either switching over to Xarelto or Eliquis as antidote will be available by that time. This dictation was discussed with Dr. Guerra this morning. Brittany Beebe MD
[2017-12-06] MEDS: diltiaZEM 120 mg/24 Hours CD Cap PO SCH (09:45)
[2017-12-06] MEDS: Vancomycin 25 MG/ML PO SCH ×4 (09:45→21:02)
--- NOTE | 2017-12-06 09:59 | PN ---
DATE: 12/05/2017 SUBJECTIVE: The patient is doing better. She is still on IV heparin. Started on Coumadin, second day. The patient will be given 7.5 mg Coumadin today. I explained the patient the risk of Coumadin versus Eliquis and bleeding from peptic ulcer and the importance of compliance with the anticoagulation and the stomach medicines, Prilosec and Pepcid. Currently, she has no chest pain, not short of breath. Seems stable. PHYSICAL EXAMINATION: VITAL SIGNS: Temperature 98, heart rate 66, blood pressure 129/76, respirations 18, sat 100%. HEAD AND NECK: Normal. No JVD. No thyromegaly. CHEST: Clear. Good air entry. CARDIAC: First sound and second sound normal. ABDOMEN: Soft, nontender. EXTREMITIES: No edema. Her knee bilateral is doing better. Less swollen, less tender. NEUROLOGICAL: The patient is getting training, walking, stable with physical therapy everyday. LABORATORY STUDY: On 12/05/2017, her PTT is 54 and we will order PT in the morning for Coumadin. Also, her laboratory study was done and twice. Hemoglobin was 8.5, on repeat at 12:00 p.m. 8.3, no significant change and hematocrit 26.3 and it is 25.4. No black stools. The patient also had chemistry, shows sodium 145, potassium 4.4, chloride 113, bicarb 20, BUN 22, creatinine 0.9, blood sugar 192, calcium 9.4 and her total iron binding capacity is low. Iron level is normal and iron saturation is normal. The patient had a stool occult blood and came back negative. IMPRESSION: 1. Generalized weakness, deconditioning, bilateral knee osteoarthritis, treated with knee aspiration and intrathecal injections, a lot better, walking better. 2. Chronic atrial fibrillations, status post mitral valve replacement, biological valve. She is on anticoagulations, Coumadin will be started. Explained to the patient after discussion with Dr. Beebe, Cardiology and Dr. Ramirez, GI. The patient will be tried on Coumadin. We will see how compliant she is, which she had a history of noncompliance with Coumadin that is why we switched to Eliquis, easier compliance; however, because of risk of bleeding on Eliquis and lack of antidote and her noncompliance history, we will better start on Coumadin and we have antidote if she do well on Coumadin and if she has no more bleeding, we may continue Coumadin or switch her back to Eliquis as long as she has no bleeding and her hemoglobin is stable. We will decrease aspirin to every other day for the first weeks or two, then switch it back to once a day everyday plus Coumadin. Discussed with Dr. Beebe and Dr. Ramirez and the patient understands the benefit and risks. She will follow up at the office once a week for the next 4 weeks. 3. Asthma, chronic obstructive pulmonary disease. Continue inhaled bronchodilators. 4. Diarrhea. We will continue vancomycin 125 mg four times daily. 5. Knee arthritis. Continue tramadol and oxycodone if needed. PLAN: Continue current therapy. Current medications, Benadryl; Carafate; Cardizem CD 120; Coumadin 7.5 mg given on 12/05/2017; DuoNeb; heparin IV; Lopressor or metoprolol 50 mg twice a day, we will continue that; Protonix 40 mg once a day, which changed to twice a day in the hospital; Singular; Tylenol; Ultram; Zofran injection p.r.n. Continue current therapy. Baltazar Guerra MD
--- NOTE | 2017-12-06 11:35 | CP.PCM.PN ---
Subjective - Date & Time of Evaluation Date of Evaluation: 12/06/17 Time of Evaluation: 09:50 - Subjective Subjective: Seen and examined at the bedside earlier today, chart review. Patient is having formed stool, that is brown and does not see any melena or bright red blood per rectum. Hemoglobin noted. She has stool for guaiac which was negative done yesterday. Patient denies nausea, vomiting, or abdominal pain. Tolerating oral intake. No new complaints. Objective - Vital Signs/Intake and Output Vital Signs (last 24 hours): Temp Pulse Resp BP Pulse Ox 98 F 60 20 168/98 H 100 12/05/17 16:00 12/06/17 09:45 12/05/17 20:50 12/06/17 09:45 12/05/17 16:00 Intake and Output: 12/06/17 12/06/17 06:59 18:59 Intake Total 250 Balance 250 - Medications Medications: Current Medications Acetaminophen (Tylenol 325mg Tab) 650 mg PO Q4H PRN; Protocol PRN Reason: mild pain Albuterol/Ipratropium (Duoneb 3 Mg/0.5 Mg (3 Ml) Ud) 3 ml IH [id number] PRN; Protocol PRN Reason: Shortness of Breath Last Admin: 12/05/17 13:12 Dose: 3 ml Diltiazem HCl (Cardizem Cd) 120 mg PO DAILY [facility] PRN Reason: Protocol Last Admin: 12/06/17 09:45 Dose: 120 mg Diphenhydramine HCl (Benadryl) 25 mg PO Q6 PRN; Protocol PRN Reason: Allergy symptoms Last Admin: 12/05/17 21:29 Dose: 25 mg Heparin Sodium/Sodium Chloride (Heparin 34720 Units/250ml 1/2 Normal Saline) 25 ,000 units in 250 mls @ 7.054 mls/hr IV .Q24H GUALBERTO; 9.6 U/KG/HR PRN Reason: Protocol Last Admin: 12/06/17 05:00 Dose: 9.6 u/kg/hr, 7.054 mls/hr Metoprolol Tartrate (Lopressor) 50 mg PO 0800,1800 [facility] PRN Reason: Protocol Last Admin: 12/06/17 07:57 Dose: 50 mg Montelukast Sodium (Singulair) 10 mg PO HS [facility]O PRN Reason: Protocol Last Admin: 12/05/17 21:27 Dose: 10 mg Ondansetron HCl (Zofran Inj) 4 mg IVP Q6H PRN; Protocol PRN Reason: Nausea/Vomiting Oxycodone/Acetaminophen (Percocet 5/325 Mg Tab) 1 tab PO Q4H PRN; Protocol PRN Reason: severe pain Stop: 12/06/17 20:52 Pantoprazole Sodium (Protonix Ec Tab) 40 mg PO 0600,1600 [facility] Last Admin: 12/06/17 05:05 Dose: 40 mg Sucralfate (Carafate Oral Susp) 1 gm PO 0600,1600 [facility] PRN Reason: Protocol Last Admin: 12/06/17 05:05 Dose: 1 gm Tramadol HCl (Ultram) 50 mg PO TID PRN; Protocol PRN Reason: moderate pain Vancomycin HCl (Vancocin 25 Mg/Ml (Oral Use)) 125 mg PO QID [facility] PRN Reason: Protocol Last Admin: 12/06/17 09:45 Dose: 125 mg Warfarin Sodium (Coumadin) 7.5 mg PO 1800 [facility] PRN Reason: Protocol Last Admin: 12/05/17 17:52 Dose: 7.5 mg - Labs Labs: 12/06/17 07:15 12/05/17 06:40 PT 16.5 SECONDS (9.4-12.5) H 12/06/17 07:15 INR 1.42 (0.93-1.08) H 12/06/17 07:15 APTT 57.1 Seconds (25.1-36.5) H 12/06/17 07:15 - Constitutional Appears: No Acute Distress - Head Exam Head Exam: NORMOCEPHALIC - Eye Exam Eye Exam: Normal appearance. absent: Scleral icterus - ENT Exam ENT Exam: Mucous Membranes Moist - Respiratory Exam Respiratory Exam: Clear to Ausculation Bilateral, NORMAL BREATHING PATTERN. absent: Respiratory Distress - Cardiovascular Exam Cardiovascular Exam: +S1, +S2 - GI/Abdominal Exam GI & Abdominal Exam: Soft, Normal Bowel Sounds. absent: Guarding, Tenderness, Rebound - Extremities Exam Extremities Exam: Normal Capillary Refill. absent: Calf Tenderness, Pedal Edema - Neurological Exam Neurological Exam: Alert, Awake, Oriented x3 - Skin Skin Exam: Dry, Warm Assessment and Plan - Assessment and Plan (Free Text) Assessment: Assessment: GI bleed, status post endoscopy found to have non bleeding gastric ulcer with clean base (zeke clase III) Anemia,CT abd/pelvis without contrast on 11/26/17 did not show any acute findings , patient received total 3 units pRBC, and 2 units FFP Diarrhea rule out C. difficile Mitral valve disease Paroxsymal atrial fibrillation UTI (+) Ecoli Plan: On heparin drip per protocol, given a dose of Coumadin 7.5 mg yesterday. Continue PPI currently on Protonix twice a day, and in view of acute renal failure which has now resolved on discharge would recommend to DC on PPI daily in am and can take Zantac 150 mg in PM, discussed w/ patient. Patient would need repeat endoscopy in about 8 weeks to follow up healing of ulcers, discussed with patient multiple times Monitor H&H and monitor for overt GI bleed. Diet as tolerated FU stool cdiff Continue oral vancomycin Seen and discussed with Dr. Ramirez
--- NOTE | 2017-12-06 12:07 | CP.PCM.PN ---
Subjective - Date & Time of Evaluation Date of Evaluation: 12/06/17 Time of Evaluation: 11:15 - Subjective Subjective: Resting comfortably in bed, no fevers, not in distress. Objective - Vital Signs/Intake and Output Vital Signs (last 24 hours): Temp Pulse Resp BP Pulse Ox 98 F 60 20 168/98 H 100 12/05/17 16:00 12/06/17 09:45 12/05/17 20:50 12/06/17 09:45 12/05/17 16:00 Intake and Output: 12/06/17 12/06/17 06:59 18:59 Intake Total 250 Balance 250 - Medications Medications: Current Medications Acetaminophen (Tylenol 325mg Tab) 650 mg PO Q4H PRN; Protocol PRN Reason: mild pain Albuterol/Ipratropium (Duoneb 3 Mg/0.5 Mg (3 Ml) Ud) 3 ml IH [id number] PRN; Protocol PRN Reason: Shortness of Breath Last Admin: 12/05/17 13:12 Dose: 3 ml Diltiazem HCl (Cardizem Cd) 120 mg PO DAILY [facility] PRN Reason: Protocol Last Admin: 12/06/17 09:45 Dose: 120 mg Diphenhydramine HCl (Benadryl) 25 mg PO Q6 PRN; Protocol PRN Reason: Allergy symptoms Last Admin: 12/05/17 21:29 Dose: 25 mg Heparin Sodium/Sodium Chloride (Heparin 38405 Units/250ml 1/2 Normal Saline) 25 ,000 units in 250 mls @ 7.054 mls/hr IV .Q24H [facility]; 9.6 U/KG/HR PRN Reason: Protocol Last Admin: 12/06/17 05:00 Dose: 9.6 u/kg/hr, 7.054 mls/hr Metoprolol Tartrate (Lopressor) 50 mg PO 0800,1800 [facility] PRN Reason: Protocol Last Admin: 12/06/17 07:57 Dose: 50 mg Montelukast Sodium (Singulair) 10 mg PO HS [facility] PRN Reason: Protocol Last Admin: 12/05/17 21:27 Dose: 10 mg Ondansetron HCl (Zofran Inj) 4 mg IVP Q6H PRN; Protocol PRN Reason: Nausea/Vomiting Oxycodone/Acetaminophen (Percocet 5/325 Mg Tab) 1 tab PO Q4H PRN; Protocol PRN Reason: severe pain Stop: 12/06/17 20:52 Pantoprazole Sodium (Protonix Ec Tab) 40 mg PO 0600,1600 [facility] Last Admin: 12/06/17 05:05 Dose: 40 mg Sucralfate (Carafate Oral Susp) 1 gm PO 0600,1600 [facility] PRN Reason: Protocol Last Admin: 12/06/17 05:05 Dose: 1 gm Tramadol HCl (Ultram) 50 mg PO TID PRN; Protocol PRN Reason: moderate pain Vancomycin HCl (Vancocin 25 Mg/Ml (Oral Use)) 125 mg PO QID [facility] PRN Reason: Protocol Last Admin: 12/06/17 09:45 Dose: 125 mg Warfarin Sodium (Coumadin) 7.5 mg PO 1800 [facility] PRN Reason: Protocol Last Admin: 12/05/17 17:52 Dose: 7.5 mg - Labs Labs: 12/06/17 07:15 12/05/17 06:40 PT 16.5 SECONDS (9.4-12.5) H 12/06/17 07:15 INR 1.42 (0.93-1.08) H 12/06/17 07:15 APTT 57.1 Seconds (25.1-36.5) H 12/06/17 07:15 - Constitutional Appears: Chronically Ill - Head Exam Head Exam: NORMAL INSPECTION - ENT Exam ENT Exam: Mucous Membranes Moist - Neck Exam Neck Exam: absent: Meningismus - Respiratory Exam Respiratory Exam: Decreased Breath Sounds - Cardiovascular Exam Cardiovascular Exam: +S1, +S2 - GI/Abdominal Exam GI & Abdominal Exam: Soft. absent: Tenderness Assessment and Plan - Assessment and Plan (Free Text) Plan: Assessment asymptomatic bacteriuria with ESBL Klebsiella loose bowel movements, R/O C. diff. infection S/P GI bleeding chronic CHF severe mitral regurgitation S/P mitral valve replacement atrial fibrillation asthma HTN esophageal ulcers carpal tunnel syndrome COPD dyslipidemia atrial fibrillation S/P cholecystectomy S/P foot surgery Plan continue PO Vancomycin day 5 - follow up stool for C. diff. bacteria in the urine need not be treated will continue to follow clinically
--- NOTE | 2017-12-06 15:16 | PN ---
DATE: 12/06/2017 REASON FOR DICTATION: Addendum to the initial progress note dictated by our nurse practitioner, Maira Rosenthal. REASON FOR ADDENDUM: The patient's today hemoglobin is 8.3, yesterday's 8.5, no significant drop. Nursing staff in TCU was concerned. Explained to the patient that we will continue Coumadin, repeat CBC tomorrow, if remained stable, possible discharge home on Coumadin. Follow up every week, PT/INR and CBC with Dr. Guerra. The patient is noncompliant, so we will keep close observation. Once antidote for Xarelto and Eliquis will be available, we can switch over to Xarelto or Eliquis, but for now we will continue Coumadin and keep an eye on the CBC and H&H, we will repeat tomorrow. Possible discharge home tomorrow. Brittany Beebe MD
--- NOTE | 2017-12-06 15:17 | CP.PCM.PN ---
Subjective - Date & Time of Evaluation Date of Evaluation: 12/06/17 Time of Evaluation: 07:30 - Subjective Subjective: Heme Onc Progress Note for Dr. Jimenez Patient was seen and examined at bedside. Patient found to be resting comfortably. No acute distress and is tolerating po intake. Patient admitted to having normally formed bowel movements without blood noted. She has stool for guaiac which was negative done yesterday. Patient denied fever, chills, shortness of breath, chest pains, abdominal pains, nausea, vomiting, dysuria. Objective - Vital Signs/Intake and Output Vital Signs (last 24 hours): Temp Pulse Resp BP Pulse Ox 98 F 60 20 168/98 H 100 12/05/17 16:00 12/06/17 09:45 12/05/17 20:50 12/06/17 09:45 12/05/17 16:00 Intake and Output: 12/06/17 12/06/17 06:59 18:59 Intake Total 250 Balance 250 - Medications Medications: Current Medications Acetaminophen (Tylenol 325mg Tab) 650 mg PO Q4H PRN; Protocol PRN Reason: mild pain Albuterol/Ipratropium (Duoneb 3 Mg/0.5 Mg (3 Ml) Ud) 3 ml IH [id number] PRN; Protocol PRN Reason: Shortness of Breath Last Admin: 12/05/17 13:12 Dose: 3 ml Diltiazem HCl (Cardizem Cd) 120 mg PO DAILY [facility] PRN Reason: Protocol Last Admin: 12/06/17 09:45 Dose: 120 mg Diphenhydramine HCl (Benadryl) 25 mg PO Q6 PRN; Protocol PRN Reason: Allergy symptoms Last Admin: 12/05/17 21:29 Dose: 25 mg Heparin Sodium/Sodium Chloride (Heparin 72692 Units/250ml 1/2 Normal Saline) 25 ,000 units in 250 mls @ 7.054 mls/hr IV .Q24H G[facility]ERTO; 9.6 U/KG/HR PRN Reason: Protocol Last Admin: 12/06/17 12:20 Dose: Not Given Metoprolol Tartrate (Lopressor) 50 mg PO 0800,1800 [facility] PRN Reason: Protocol Last Admin: 12/06/17 07:57 Dose: 50 mg Montelukast Sodium (Singulair) 10 mg PO HS [facility] PRN Reason: Protocol Last Admin: 12/05/17 21:27 Dose: 10 mg Ondansetron HCl (Zofran Inj) 4 mg IVP Q6H PRN; Protocol PRN Reason: Nausea/Vomiting Oxycodone/Acetaminophen (Percocet 5/325 Mg Tab) 1 tab PO Q4H PRN; Protocol PRN Reason: severe pain Stop: 12/06/17 20:52 Pantoprazole Sodium (Protonix Ec Tab) 40 mg PO 0600,1600 [facility] Last Admin: 12/06/17 05:05 Dose: 40 mg Sucralfate (Carafate Oral Susp) 1 gm PO 0600,1600 [facility] PRN Reason: Protocol Last Admin: 12/06/17 05:05 Dose: 1 gm Tramadol HCl (Ultram) 50 mg PO TID PRN; Protocol PRN Reason: moderate pain Vancomycin HCl (Vancocin 25 Mg/Ml (Oral Use)) 125 mg PO QID [facility] PRN Reason: Protocol Last Admin: 12/06/17 09:45 Dose: 125 mg Warfarin Sodium (Coumadin) 7.5 mg PO 1800 [facility] PRN Reason: Protocol - Labs Labs: 12/06/17 07:15 12/05/17 06:40 PT 16.5 SECONDS (9.4-12.5) H 12/06/17 07:15 INR 1.42 (0.93-1.08) H 12/06/17 07:15 APTT 57.1 Seconds (25.1-36.5) H 12/06/17 07:15 - Constitutional Appears: No Acute Distress - Head Exam Head Exam: ATRAUMATIC, NORMAL INSPECTION, NORMOCEPHALIC - Eye Exam Eye Exam: EOMI, Normal appearance, PERRL - ENT Exam ENT Exam: Mucous Membranes Moist, Normal Exam - Respiratory Exam Respiratory Exam: Clear to Ausculation Bilateral, NORMAL BREATHING PATTERN - Cardiovascular Exam Cardiovascular Exam: REGULAR RHYTHM, +S1, +S2. absent: Murmur - GI/Abdominal Exam GI & Abdominal Exam: Soft, Normal Bowel Sounds. absent: Tenderness - Neurological Exam Neurological Exam: Alert, Awake, CN II-XII Intact, Oriented x3 - Psychiatric Exam Psychiatric exam: Normal Affect, Normal Mood - Skin Skin Exam: Dry, Intact, Normal Color, Warm Assessment and Plan - Assessment and Plan (Free Text) Assessment: 62 F admitted with shortness of breath and tarry stools, found to have a GI bleed s/p EGD demonstrated large duodenal ulcer s/p 3 units pRBC, and 2 units FFP. Diarrhea rule out C. difficile, injections provided for acute gout attack on b/l knees. Hemoglobin stable. On heparin drip and started coumadin 7.5mg yesterday, subtherapeutic INR currently. Mitral valve disease. Paroxsymal atrial fibrillation. Asymptomatic UTI (+) Ecoli. Continue PPI currently on Protonix twice a day, and in view of acute renal failure which has now resolved on discharge would recommend to DC on PPI daily in am and can take Zantac 150 mg in PM as per GI. Repeat endoscopy in about 8 weeks to follow up healing of ulcers. Monitor H&H and monitor for overt GI bleed. Diet as tolerated. FU stool cdiff. continue PO Vancomycin day 5 - follow up stool for C. diff.
[2017-12-06 16:54] VITALS: O2SAT 94
[2017-12-07] MEDS: Pantoprazole 40 mg EC Tab PO SCH ×2 (05:27→17:42)
[2017-12-07] MEDS: Sucralfate 1 gm/10 ml Oral Susp UD PO SCH ×2 (05:28→16:55)
[2017-12-07 08:49] LABS: BASO # 0.01 K/mm3 (0.0-2.0); BASO % 0.1 % (0.0-3.0); EOS # 0.2 (0.0-0.7); EOS % 1.5 % (1.5-5.0); GRAN # 9.57 (1.4-6.5); GRAN % 79.7 % (50.0-68.0); LYMPH # 1.7 (1.2-3.4); LYMPH % 13.8 % (22.0-35.0); MEAN CELL VOLUME 89.6 fl (80.0-105.0); MEAN CORPUSCULAR HEMOGLOBIN 29.1 pg (25.0-35.0); MEAN CORPUSCULAR HGB CONC 32.5 g/dl (31.0-37.0); MONO # 0.6 (0.1-0.6); MONO % 4.9 % (1.0-6.0); RBC 3.09 10^6/uL (3.5-6.1)
[2017-12-07] MEDS: Vancomycin 25 MG/ML PO SCH (09:00)
[2017-12-07] MEDS: diltiaZEM 120 mg/24 Hours CD Cap PO SCH (09:01)
[2017-12-07 09:53] LABS: INR 3.04 (0.93-1.08); PROTHROMBIN TIME 35.4 SECONDS (9.4-12.5)
--- NOTE | 2017-12-07 11:53 | PN ---
DATE: 12/07/2017 SUBJECTIVE: The patient is in bed, in no acute distress, nontoxic. She states she is doing well. She wants to be discharged. PHYSICAL EXAMINATION: VITAL SIGNS: Temperature is 98, blood pressure is 160/70, respiratory rate of 18. HEENT: Examination of HEENT is unremarkable. NECK: Supple. LUNGS: Have decreased breath sounds. HEART: Normal S1, S2. ABDOMEN: Soft, nontender. LABORATORY DATA: Laboratory examination reveals a white count of 12,000, hemoglobin of 9, platelets of 511. Chemistries reveals a BUN of 22, creatinine of 0.9. Urinalysis is noted and microbiology reveals Klebsiella pneumoniae in the urine. It is sensitive to ertapenem, sensitive to cefazolin, Cipro, cefepime, gentamicin, piperacillin. The patient also had a stool C. diff antigen and toxin, which are both negative. CURRENT MEDICATIONS: Reveals the patient to be on p.o. vancomycin. ASSESSMENT AND PLAN: A 62-year-old female with asymptomatic bacteriuria with extended-spectrum beta-lactamase Klebsiella loose bowel movements with a negative Clostridium difficile antigen and toxin and chronic congestive heart failure, mitral regurgitation, currently on p.o. vancomycin day #6. The stool Clostridium difficile is negative. We will discontinue the p.o. vancomycin. The patient is requesting to be discharged as per Dr. Guerra's decision. note from yesterday is reviewed. From Infectious Disease point of view, she is clear for discharge. Sachin Valenzuela MD
[2017-12-07 19:49] LABS: HEMOGLOBIN 7.7 g/dL (12.0-16.0); MEAN CELL VOLUME 90.6 fl (80.0-105.0); MEAN CORPUSCULAR HEMOGLOBIN 29.1 pg (25.0-35.0); MEAN CORPUSCULAR HGB CONC 32.1 g/dl (31.0-37.0); MEAN PLATELET VOLUME 9.6 fl (7.0-11.0); RBC 2.65 10^6/uL (3.5-6.1); RED CELL DISTRIBUTION WIDTH 16.4 % (11.5-14.5); WHITE BLOOD COUNT 16.9 10^3/ul (4.5-11.0)
[2017-12-07 19:58] LABS: PARTIAL THROMBOPLASTIN TIME 34.1 Seconds (25.1-36.5); PROTHROMBIN TIME 48.6 SECONDS (9.4-12.5)
[2017-12-07 20:01] LABS: INR 4.14 (0.93-1.08)
[2017-12-07 21:17] VITALS: BP 133/75; PULSE 82; RESP 18
[2017-12-07 21:18] VITALS: TEMP 98.9
[2017-12-08] MEDS ORDERED: Pantoprazole 40mg/100mL NS 40 MG/100 ML BAG IVPB SCH (00:15)
--- NOTE | 2017-12-08 07:54 | PN ---
DATE: 12/07/2017 SUBJECTIVE: This patient was seen and evaluated earlier today. The patient is comfortable. The patient had significant improvement of the diarrhea. PHYSICAL EXAMINATION: VITAL SIGNS: Temperature is 98.9, pulse is 82, blood pressure is 133/75. HEENT: Atraumatic, anicteric. NECK: Supple. HEART: S1, S2 heard. LUNGS: Bilateral air entry present. ABDOMEN: Soft. There is no tenderness. EXTREMITIES: No cyanosis, no clubbing. LABORATORY DATA: Hemoglobin has come down to 7.9, hematocrit is 24, WBC 16.9, platelets 482. BUN 22, creatinine 0.9. The patient's INR has gone up to 4.1. IMPRESSION: This 62-year-old patient with status post mitral valve replacement; history of atrial fibrillation, on Eliquis admitted with severe anemia, status post endoscopy, showed large gastric ulcer. Biopsy showed inflamed gastric mucosa. No Helicobacter pylori. 1. Large gastric ulcer. 2. Paroxysmal atrial fibrillation, on anticoagulation, on Coumadin. 3. Supratherapeutic elevated INR. 4. Anemia, drop in hemoglobin. 5. History of atrial fibrillation. 6. Status post mitral valve repair. RECOMMENDATIONS: 1. Close followup of the INR and also followup of the hemoglobin and transfuse as needed. 2. The patient had history of severe anemia with large ulceration. Would recommend to avoid the newer anticoagulation. The reasonable thing is to keep the patient on low-level therapeutic anticoagulation with warfarin. This is in view of this large ulceration. 3. The patient would benefit from the repeat endoscopic evaluation in about eight weeks' time. 4. We will continue the close followup of the hemoglobin and hematocrit and transfuse as needed. Once and if the patient is to be discharged, the patient can be placed on Protonix 40 mg in morning and Zantac 150 mg in the evening. However, it is a reasonable thing to repeat his hemoglobin and follow the trend. 5. Would recommend close followup of the hemoglobin and hematocrit and also INR. Thank you very much for allowing us to participate in the care of the patient. Sun Ramirez MD
--- NOTE | 2017-12-08 15:44 | CARD ---
APPROVED REPORT EKG Measurement Heart [id number] ID [id number] <Conclusion> Sinus rhythm with short ID with premature atrial complexes with aberrant conduction Nonspecific T wave abnormality Abnormal ECG
--- NOTE | 2017-12-08 19:00 | PN ---
DATE: 12/06/2017 SUBJECTIVE: Patient is clinically stable. Currently has no new complaints. Her knee is better. She is currently on IV heparin, Coumadin. Planning to discontinue heparin once INR is 2. Patient also wants to go home on Saturday and we explained to the patient it depends on your clinical conditions and stability of your vitals and hemoglobin. PHYSICAL EXAMINATION On 12/06, patient has: VITAL SIGNS: Temperature 97.6, heart rate 72, Blood pressure 138/74, respiration 18, and saturation 96% on room air. HEAD AND NECK: Normal. No JVD. No thyromegaly. CHEST: Clear. Good air entry. CARDIAC: First sound and second sound normal. ABDOMEN: Soft, nontender. EXTREMITIES: No edema. NEUROLOGIC: Normal. LABORATORY STUDIES: Her PT/INR, PT is 16.5, INR 1.42. Her PTT is 57. The patient had laboratory studies on 12/06, which shows white count 9.5, hemoglobin 8.3, hematocrit 25.4, and platelets is 439. Patient's chemistry shows iron is normal, iron saturation is normal. IMPRESSION AND PLAN: 1. Paroxysmal atrial fibrillations, we will go with Coumadin, we will avoid any new anticoagulant medication because of lack of antidote availability and risk of bleeding in this particular patient. We will continue Coumadin, we will monitor her PT/INR in the morning. Once PT/INR is therapeutic, we will discontinue IV heparin and we will continue to monitor her conditions. We will follow up clinically. 2. Peptic ulcer disease, gastric ulcer, no active bleeding on the ulcer, discussed with GI and Cardiology. We will go with Coumadin and monitor PT/INR. Patient mentioned that she wants to go home, also I did advice the patient to stay longer to monitor her condition on the anticoagulant. We will see how she does depending on her clinical conditions. 3. Hypertension, chronic obstructive pulmonary disease, asthma, hypercholesterolemia, history of gouty arthritis status post knee injections. Patient seems stable. Continue current therapy, Cardizem, metoprolol, magnesium, continue vitamin D. No aspirin, we will hold the aspirin, and we will only give Coumadin to monitor PT/INR in the morning. Continue current therapy. Continue physical therapy. Baltazar Guerra MD [facility] # [id number]
--- NOTE | 2017-12-09 12:00 | DS ---
The patient was seen, evaluated initially in the morning on 12/07/2017. PHYSICAL EXAMINATION: VITAL SIGNS: Temperature 97.6, heart rate 87, blood pressure is 134/92, respirations 18. HEAD AND NECK: Normal. No JVD. No thyromegaly. CHEST: Clear. Good air entry. CARDIAC: First sound and second sound normal. ABDOMEN: Soft, nontender. EXTREMITIES: No edema. NEUROLOGIC: Normal. LABORATORY DATA: On 12/07/2017, PT is 35.4, INR is 3.04. Patient also had blood hematology, which showed white count 12, hemoglobin 9, hematocrit 27.7 and platelets 511. CLINICAL COURSE: Patient was doing stable. She was planned to be discharged on Saturday; however, patient did have bloody bowel movement on Saturday around 04:00-05:00 p.m. and we canceled discharge and patient was sent to the ER for further evaluation. This morning, she was off heparin, on the Coumadin and her PT/INR was 3 and we discharged the patient to go to the emergency room because of the recurrent GI bleed. Patient's condition has been discussed with the GI consults about the Coumadin versus new anticoagulant because of risk of bleeding and the patient was advised to stay longer, but she wants to go home. She wants to go before Saturday. I did discuss with her and convinced her to stay until Saturday at least and monitor her condition. However, the patient had a bleeding and she will be readmitted again and monitored through the emergency room, probably will be discharged and admitted to ICU and we will follow up clinically. DISCHARGE DIAGNOSES: 1. Acute recurrent gastrointestinal bleeding. Patient had a black stool that was seen. 2. Anemia. Patient repeat hemoglobin was low. Hemoglobin was 7, which is lower than before. 3. Peptic ulcer disease. 4. Gastric ulcers. 5. Patient has paroxysmal atrial fibrillation with mitral valve replacement. 6. Chronic obstructive pulmonary disease and asthma. PLAN: Discharge the patient to the ER for reevaluation and admission to ICU. Continue to monitor H and H, probably patient will be reversed, Coumadin with fresh frozen plasma, transfuse 2 units of packed RBCs. Patient will be discharged and will be readmitted to ICU. Baltazar Guerra MD [facility] # [id number]
== END 2017-12-08 02:57 | disposition short-term general hospital (02) | DRG 378 ==
LOC: TRCU 20:32
PROVIDERS: ADMIT Internal Medicine; ATTEND Internal Medicine
PROC: F07Z9ZZ Gait Training/Functional Ambulation Treatment (ICD-10-PCS; principal; 2017-12-04)
PROC: F07M6ZZ Therapeutic Exercise Treatment of Musculoskeletal System - Whole Body (ICD-10-PCS; 2017-12-04)
PROC: F08Z4ZZ Home Management Treatment (ICD-10-PCS; 2017-12-04)
DX: K92.2 Gastrointestinal hemorrhage, unspecified (principal); K22.10 Ulcer of esophagus without bleeding; N39.0 Urinary tract infection, site not specified; N17.9 Acute kidney failure, unspecified; K25.9 Gastric ulcer, unspecified as acute or chronic, without hemorrhage or perforation; J44.9 Chronic obstructive pulmonary disease, unspecified; I73.9 Peripheral vascular disease, unspecified; I50.9 Heart failure, unspecified; E78.00 Pure hypercholesterolemia, unspecified; E78.5 Hyperlipidemia, unspecified; G56.00 Carpal tunnel syndrome, unspecified upper limb; I05.9 Rheumatic mitral valve disease, unspecified; I11.0 Hypertensive heart disease with heart failure; I48.0 Paroxysmal atrial fibrillation; I48.2 Chronic atrial fibrillation; M10.9 Gout, unspecified; M17.0 Bilateral primary osteoarthritis of knee; R79.1 Abnormal coagulation profile; W19.XXXA Unspecified fall, initial encounter; Z79.01 Long term (current) use of anticoagulants; Z79.82 Long term (current) use of aspirin; Z87.11 Personal history of peptic ulcer disease; Z90.49 Acquired absence of other specified parts of digestive tract; Z91.14 Patient's other noncompliance with medication regimen; Z95.3 Presence of xenogenic heart valve; D64.9 Anemia, unspecified; B96.1 Klebsiella pneumoniae [K. pneumoniae] as the cause of diseases classified elsewhere; B96.20 Unspecified Escherichia coli [E. coli] as the cause of diseases classified elsewhere; Z16.12 Extended spectrum beta lactamase (ESBL) resistance

== ENCOUNTER 2017-12-07 21:42 | Inpatient (IN) | payer MEDICARE, OTHER ==
--- NOTE | 2017-12-07 22:19 | ED PDOC ---
Arrival/HPI - General Chief Complaint: GI Problem Time Seen by Provider: 12/07/17 21:48 Historian: Patient - History of Present Illness Narrative History of Present Illness (Text): 12/07/17 22:19 Dariana Mcgregor is a 62 year old female, whose past medical history includes paroxysmal atrial fibrillation, hypertension, CAD, mitral valve repair, COPD, asthma, lower extremity edema, chronic back pain, anemia, and GI bleed, who presents to the Emergency department transferred from [facility] for rectal bleeding. As per RN, patient had dark, tarry stool earlier today and noted patient's last hemoglobin today was 7.7. Patient notes she has some rectal bleeding earlier today after moving her bowels. Patient is currently on Coumadin. Patient was recently seen on 11/26/2017 for shortness of breath, chest pain, and dizziness. Patient was noted to be anemic with a hemoglobin of 6, patient was subsequently admitted to the hospital for further evaluation. Patient denies any abdominal pain, chest pain, nausea, vomiting, headache, dizziness, or any other complaints. PMD: Dr. Guerra Symptom Onset: Gradual Symptom Course: Unchanged Activities at Onset: Light Context: Other ([facility]) Past Medical History - Provider Review Nursing Documentation Reviewed: Yes - Infectious Disease Hx of Infectious Diseases: None - Tetanus Immunization Tetanus Immunization: Unknown - Reproductive Menopause: Yes - Past Medical History Past Medical History: No Previous - Cardiac Hx Cardiac Disorders: Yes (mitral valve disease) - Pulmonary Hx Chronic Obstructive Pulmonary Disease (COPD): Yes - Neurological Hx Neurological Disorder: Yes Hx Dizziness: Yes Hx Migraine: Yes - HEENT Hx HEENT Disorder: No - Renal Hx Renal Disorder: No - Endocrine/Metabolic Hx Endocrine Disorders: No - Hematological/Oncological Hx Blood Transfusions: Yes Hx Blood Transfusion Reaction: No - Integumentary Hx Dermatological Disorder: No - Musculoskeletal/Rheumatological Hx Falls: Yes - Gastrointestinal Hx Gastrointestinal Disorders: Yes - Genitourinary/Gynecological Hx Genitourinary Disorders: No Hx Reproductive Disorders: No - Psychiatric Hx Psychophysiologic Disorder: No Hx Emotional Abuse: No Hx Physical Abuse: No Hx Substance Use: No - Surgical History Other/Comment: Mitral Valve Replacement - Anesthesia Hx Anesthesia: No Hx Anesthesia Reactions: No Hx Malignant Hyperthermia: No - Suicidal Assessment Feels Threatened In Home Enviroment: No Family/Social History - Physician Review Nursing Documentation Reviewed: Yes Family/Social History: Unknown Family HX Smoking Status: Never Smoked Hx Alcohol Use: Yes (SOCIALLY) Amount per day: 6 Hx Substance Use: No Hx Substance Use Treatment: No Allergies/Home Meds Allergies/Adverse Reactions: Allergies cinnamon Allergy (Intermediate, Verified 12/07/17 21:48) ANAPHYLAXIS Home Medications: Home Meds Medication Instructions Recorded Confirmed Simvastatin [Zocor] 20 mg PO HS 08/20/17 12/07/17 Budesonide/Formoterol Fumarate 1 aer IH DAILY 11/26/17 12/07/17 [Symbicort] Cholecalciferol [Vitamin D 1000 IU] 50,000 iu PO QWK 11/26/17 12/07/17 Diltiazem HCl [Cartia Xt] 120 mg PO DAILY 11/26/17 12/07/17 Famotidine [Pepcid] 40 mg PO BID 11/26/17 12/07/17 Ferrous Sulfate [Feosol] 325 mg PO BID 11/26/17 12/07/17 Furosemide [Lasix] 20 mg PO DAILY 11/26/17 12/07/17 Loratadine [Claritin] 10 mg PO DAILY 11/26/17 12/07/17 Review of Systems - Physician Review All systems were reviewed & negative as marked: Yes - Review of Systems Constitutional: Normal. absent: Fevers Eyes: Normal ENT: Normal Respiratory: Normal. absent: SOB, Cough Cardiovascular: Normal. absent: Chest Pain Gastrointestinal: Hematochezia (+dark, tarry stool) Genitourinary Female: Normal. absent: Dysuria, Frequency, Hematuria, Urine Output Changes Musculoskeletal: Normal. absent: Back Pain, Neck Pain Skin: Normal. absent: Rash Neurological: Normal. absent: Headache, Dizziness Endocrine: Normal Hemo/Lymphatic: Normal Psychiatric: Normal Physical Exam Vital Signs Reviewed: Yes Vital Signs Temp Pulse Resp BP Pulse Ox 12/08/17 01:21 94 H 16 155/85 H 100 12/07/17 21:43 98.1 F 90 18 137/79 100 Temperature: Afebrile Blood Pressure: Normal Pulse: Regular Respiratory Rate: Normal Appearance: Positive for: Well-Appearing, Non-Toxic, Comfortable Pain Distress: None Mental Status: Positive for: Alert and Oriented X 3 - Systems Exam Head: Present: Atraumatic, Normocephalic Pupils: Present: PERRL Extroacular Muscles: Present: EOMI Conjunctiva: Present: Normal Mouth: Present: Moist Mucous Membranes Neck: Present: Normal Range of Motion Respiratory/Chest: Present: Clear to Auscultation, Good Air Exchange. No: Respiratory Distress, Accessory Muscle Use Cardiovascular: Present: Regular Rate and Rhythm, Normal S1, S2. No: Murmurs Abdomen: No: Tenderness, Distention, Peritoneal Signs Back: Present: Normal Inspection Upper Extremity: Present: Normal Inspection. No: Cyanosis, Edema Lower Extremity: Present: Normal Inspection. No: Edema Neurological: Present: GCS=15, CN II-XII Intact, Speech Normal Skin: Present: Warm, Dry, Normal Color. No: Rashes Psychiatric: Present: Alert, Oriented x 3, Normal Insight, Normal Concentration Medical Decision Making ED Course and Treatment: 12/07/17 22:19 Impression: 62 year old female transferred from [facility] for dark, tarry stools and low hemoglobin. Differential Diagnosis included but are not limited to: GI bleed Plan: -- EKG -- Chest X-ray -- Labs, blood type and screen -- Reassess and disposition Prior Visits: Notes and results from previous visits were reviewed. Progress Notes: Reviewed EKG, sinus rhythm at 88 bpm. Frequent PVCs. Septal infarct. Non- specific ST/T wave changes. 12/07/17 23:[address] Mcdonald, student services representative, who is aware and agrees to evaluate pt. president finance company notified. 12/07/17 23:[address] Guerra, who is aware and agrees with plan. Requests ICU admission. 12/07/17 23:09 Chest X-ray reviewed, shows no acute processes. 12/08/17 00:[address] Mcdonald and medical corps officer, who evaluated pt. Pt to be admitted to the ICU for GI bleed under Dr. Guerra's service. 12/08/17 02:03 Pt adamantly refuses repeat blood drawing.Will attempt to convince patient otherwise. - Critical Care Critical Care Minutes: 30 minutes - RAD Interpretation Radiology Orders: 12/07/17 22:25 CHEST PORTABLE [RAD] Stat Sweatband Perforator: ED Physician - EKG Interpretation Interpreted by ED Physician: Yes Type: 12 lead EKG - Medication Orders Current Medication Orders: Albuterol/Ipratropium (Duoneb 3 Mg/0.5 Mg (3 Ml) Ud) 3 ml IH [id number] PRN PRN Reason: Shortness of Breath Diltiazem HCl (Cardizem) 5 mg IVP Q6 PRN PRN Reason: Heart rate Sodium Chloride (Sodium Chloride 0.9%) 1,000 mls @ 100 mls/hr IV .Q10H [facility] Last Admin: 12/07/17 23:41 Dose: 100 mls/hr eMAR Start Stop Document 12/07/17 23:41 CNR (Rec: 12/07/17 23:41 CNR [id number]) Intravenous Solution Start Date 12/07/17 Start Time 23:41 Pantoprazole Sodium (Protonix 40mg Ivpb) 40 mg in 100 mls @ 20 mls/hr IVPB .Q5H [facility] Last Admin: 12/08/17 06:54 Dose: 20 mls/hr eMAR Start Stop Document 12/08/17 06:54 SMA (Rec: 12/08/17 06:55 SMA [facility] [id number] Intravenous Solution Start Date 12/08/17 Start Time 06:55 End Date 12/08/17 End time 11:50 Total Infusion Time 295 Non-Formulary Medication (Budesonide/Formoterol Fumarate [Symbicort 80-4.5 Mcg Inhaler]) 1 aer IH DAILY [facility] Discontinued Medications Lorazepam (Ativan) 1 mg PO ONCE STA Stop: 12/07/17 23:40 Last Admin: 12/07/17 23:46 Dose: 1 mg Pantoprazole Sodium (Protonix Inj) 40 mg IVP ONCE STA Stop: 12/07/17 23:12 Last Admin: 12/07/17 23:39 Dose: 40 mg IVP Administration Document 12/07/17 23:39 CNR (Rec: 12/07/17 23:41 CNR [id number]) Charges for Administration # of IVP Administrations 1 - Scribe Statement The provider has reviewed the documentation as recorded by the Robert Alfredo Provider Scribe Attestation: All medical record entries made by the Scribe were at my direction and personally dictated by me. I have reviewed the chart and agree that the record accurately reflects my personal performance of the history, physical exam, medical decision making, and the department course for this patient. I have also personally directed, reviewed, and agree with the discharge instructions and disposition. Disposition/Present on Arrival - Present on Arrival Any Indicators Present on Arrival: No History of DVT/PE: No History of Uncontrolled Diabetes: No Urinary Catheter: No History of Decub. Ulcer: No History Surgical Site Infection Following: None - Disposition Have Diagnosis and Disposition been Completed?: Yes Diagnosis: GI bleed Disposition: HOSPITALIZED Disposition Time: 00:26 Patient Plan: ICU Patient Problems: Current Active Problems Problem Status Onset GI bleed Acute Condition: GUARDED
--- NOTE | 2017-12-07 23:39 | CP.PCM.CON ---
<Riya Walter - Last Filed: 12/08/17 02:22> History of Present Illness - History of Present Illness History of Present Illness: PGY-[address] Mcdonald ICU consult: GI bleed Ms Dariana Mcgregor, 62 F with a PMHx of a-fib on coumadin, mitral valve repair ( severe mitral regurgitation s/p open heart surgery and repair with MVR biprosthetic), CAD , COPD was transferred from TCU for rectal bleeding. His AM lab shows WBC 16.9, Hb 7.7, plt 482, INR 4.14. Patient states that at 5:30pm, she had dark, tarry stool associated with lightheadedness. No pain. She was then transferred to In the ED, VS stable: T 98.1, HR 90, BP 137/99, RR 18, 100 RA). ED ordered pRBC and FFP, given protonix 40 IV, NS@100. Pending labs. Finally, at 2:20am, we got patient to agree to blood drawn. Pt VS remains stable. She was [place] [facility] for diarrhea and dark stools. Her Hb at that time was 6.7. She was transfused 2u pRBC, 2u FFP. Dr Ramirez performed Endoscopy on 11/28 which showed non-bleeding gastric ulcer with a clean ulcer base ([place] 3). Biopsy result showed hyperplastic inflammed gastric mucosa. Negative for H pylori. She was found to have asymptomatic bactereuria colonized by extended-spectrum beta-lactamase klebsiella pneumonia, on contact precaution. She has persistent loosely formed stool, average 3 bowel movements a day, on Vancomycin PO from 12/03/17. Her C. Diff collected 12/05 was negative for toxin and antigen, and the antibiotics was stopped today. ROS: Denies F/C, CP, SOB, palpitation, N/V, dysuria. (+) dizziness but resolved PMHx: severe mitral regurgitation s/p open heart surgery and repair with MVR biprosthetic, [facility] (Echo 11/27: EF 65, RVSP 19) paroxysmal afib (previously Eliquis) CAD COPD lower extremity edema chronic back pain anemia GI bleed due to gastritis and gastric ulcer (PUD) Afraid of needles PSHx: open heart surgery, carpal tunnel, bunion, cholecystectomy. FH: Heart disease Social: Denies alcohol, tobacco or illicit drug use. Live alone, brother upstairs. independent ambulation Allergy: cinnamon Home meds: See ANTONI PMD: Dr Guerra GI: Dr Ramirez Past Patient History - Infectious Disease Hx of Infectious Diseases: None - Tetanus Immunizations Tetanus Immunization: Unknown - Past Social History Smoking Status: Never Smoked - CARDIAC Hx Cardiac Disorders: Yes (mitral valve disease) - PULMONARY Hx Chronic Obstructive Pulmonary Disease (COPD): Yes - NEUROLOGICAL Hx Neurological Disorder: Yes Hx Dizziness: Yes Hx Migraine: Yes - HEENT Hx HEENT Problems: No - RENAL Hx Chronic Kidney Disease: No - ENDOCRINE/METABOLIC Hx Endocrine Disorders: No - HEMATOLOGICAL/ONCOLOGICAL Hx Blood Transfusions: Yes Hx Blood Transfusion Reaction: No - INTEGUMENTARY Hx Dermatological Problems: No - MUSCULOSKELETAL/RHEUMATOLOGICAL Hx Falls: Yes - GASTROINTESTINAL Hx Gastrointestinal Disorders: Yes - GENITOURINARY/GYNECOLOGICAL Hx Genitourinary Disorders: No Hx Reproductive Disorders: No - PSYCHIATRIC Hx Psychophysiologic Disorder: No Hx Emotional Abuse: No Hx Physical Abuse: No Hx Substance Use: No - SURGICAL HISTORY Other/Comment: Mitral Valve Replacement - ANESTHESIA Hx Anesthesia: No Hx Anesthesia Reactions: No Hx Malignant Hyperthermia: No Meds Allergies/Adverse Reactions: Allergies Allergy/AdvReac Type Severity Reaction Status Date / Time cinnamon Allergy Intermediate ANAPHYLAXIS Verified 12/07/17 21:48 - Medications Medications: Current Medications Sodium Chloride (Sodium Chloride 0.9%) 1,000 mls @ 100 mls/hr IV .Q10H GUALBERTO Physical Exam - Constitutional Appears: No Acute Distress - Head Exam Head Exam: ATRAUMATIC, NORMAL INSPECTION, NORMOCEPHALIC - Eye Exam Eye Exam: EOMI, Normal appearance, PERRL. absent: Scleral icterus - ENT Exam ENT Exam: Mucous Membranes Moist - Neck Exam Additional comments: soft, supple - Respiratory Exam Respiratory Exam: Clear to Auscultation Bilateral. absent: Rales, Rhonchi, Wheezes - Cardiovascular Exam Cardiovascular Exam: REGULAR RHYTHM, +S1, +S2 Additional comments: mid-chest scar healed well - GI/Abdominal Exam GI & Abdominal Exam: Normal Bowel Sounds, Soft. absent: Distended, Firm, Guarding, Rigid, Tenderness - Rectal Exam Additional comments: dry perineal skin during exam. No visible blood - Extremities Exam Extremities exam: Positive for: pedal pulses present. Negative for: calf tenderness, pedal edema - Neurological Exam Neurological exam: Alert, Oriented x3 - Psychiatric Exam Psychiatric exam: Normal Affect, Normal Mood - Skin Skin Exam: Dry, Normal Color Results - Vital Signs Recent Vital Signs: Last Vital Signs Temp 98.1 F 12/07/17 21:43 Pulse 90 12/07/17 21:43 Resp 18 12/07/17 21:43 BP 137/79 12/07/17 21:43 Pulse Ox 100 12/07/17 21:43 Assessment & Plan - Assessment and Plan (Free Text) Plan: Ms Dariana Mcgregor, 62 F with a PMHx of a-fib on coumadin, mitral valve repair ( severe mitral regurgitation s/p open heart surgery and repair with MVR biprosthetic), CAD , COPD was transferred from TCU for GI bleeding, likely upper. Her INR was 4.14 this morning. Patient states that at 5:30pm, she had one episode of dark, tarry stool associated with lightheadedness. No pain. VS stable: T 98.1, HR 90, BP 137/99, RR 18, 100 RA). ED ordered pRBC and FFP, given protonix 40 IV, NS@100. Pending labs. Endoscopy on 11/28 which showed gastritis and non-bleeding gastric ulcer with a clean ulcer base ([place] 3). She is on contact for asymptomatic bactereuria colonized by extended-spectrum beta-lactamase klebsiella pneumonia. Vancomycin PO was stopped today because C diff toxin and antigen was negative. Neuro - AAOx3. Maintain euthermic Pulm - Maintain SaO2 above 92% - Hx COPD - Duoneb 3q6 PRN - continue home LABA/ICS Card - Card: Dr Beebe - Cardizem IV as need GI - GI: Dr Ramirez - protonix gtt - NPO, NS@100 - Will transfuse 2 pRBC, 2 FFP - CBC, INR q8 (Pt is extremely afraid of needles. need 2 people to hold her and ativan PRN) Nephro/Uro - strict i/o Endo - Maintain euglycemic Heme - Hold coumadin - Hold ASA - Heme: Dr Jimenez Infectious - Contact precaution for ESBL Klebiella - ID: Dr Valenzuela Prophylaxis - protonix gtt, SCD s/r/d/w Dr. Mcdonald <Tamara CASILLAS,Maximo - Last Filed: 12/09/17 11:01> Meds - Medications Medications: Current Medications Albuterol/Ipratropium (Duoneb 3 Mg/0.5 Mg (3 Ml) Ud) 3 ml IH [id number] PRN PRN Reason: Shortness of Breath Arformoterol Tartrate (Brovana) 15 mcg IH [id number] GUALBERTO Budesonide (Pulmicort Respules) 0.25 mg IH [id number] GUALBERTO Diltiazem HCl (Cardizem) 5 mg IVP Q6 PRN PRN Reason: Heart rate Sodium Chloride (Sodium Chloride 0.9%) 1,000 mls @ 100 mls/hr IV .Q10H [facility] Last Admin: 12/09/17 00:51 Dose: 100 mls/hr Pantoprazole Sodium (Protonix 40mg Ivpb) 40 mg in 100 mls @ 20 mls/hr IVPB .Q5H [facility] Last Admin: 12/09/17 07:45 Dose: Not Given Levalbuterol HCl (Xopenex) 1.25 mg IH [id number] PRN PRN Reason: Shortness of Breath Metoprolol Tartrate (Lopressor) 25 mg PO BID [facility] Last Admin: 12/09/17 09:29 Dose: 25 mg Results - Vital Signs Recent Vital Signs: Last Vital Signs Temp 97.5 F L 12/09/17 05:06 Pulse 83 12/09/17 10:49 Resp 14 12/09/17 10:49 BP 153/69 H 12/09/17 10:00 Pulse Ox 95 12/09/17 10:20 - Labs Result Diagrams: 12/09/17 05:40 12/09/17 06:00 Labs: Laboratory Results - last 24 hr 12/08/17 12/08/17 12/08/17 02:15 02:15 12:55 WBC 11.1 H D RBC 2.69 L Hgb 8.0 L Hct 24.1 L MCV 89.6 MCH 29.7 MCHC 33.2 RDW 15.8 H Plt Count 384 MPV 9.6 Gran % Lymph % (Auto) Kimble % (Auto) Eos % (Auto) Baso % (Auto) Gran # Lymph # (Auto) Kimble # (Auto) Eos # (Auto) Baso # (Auto) PT INR Sodium Potassium Chloride Carbon Dioxide Anion Gap BUN Creatinine Est GFR ( Amer) Est GFR (Non-Af Amer) Random Glucose Calcium Total Bilirubin AST ALT Alkaline Phosphatase Total Protein Albumin Globulin Albumin/Globulin Ratio Urine Color Urine Appearance Urine pH Ur Specific [place] Urine Protein Urine Glucose (UA) Urine Ketones Urine Blood Urine Nitrate Urine Bilirubin Urine Urobilinogen Ur Leukocyte Esterase Urine RBC Urine WBC Ur Epithelial Cells Urine Bacteria Blood Type O POSITIVE O POSITIVE Antibody Screen Negative Negative Crossmatch See Detail BBK History Checked Patient has bt Patient has bt 12/08/17 12/08/17 12/09/17 12:55 22:20 05:40 WBC 10.5 10.4 RBC 2.81 L 2.93 L Hgb 8.5 L 8.8 L Hct 25.0 L 26.2 L MCV 89.0 89.4 MCH 30.2 30.0 MCHC 34.0 33.6 RDW 15.8 H 15.8 H Plt Count 353 386 MPV 9.6 10.0 Gran % 69.7 H 66.8 Lymph % (Auto) 13.1 L 14.1 L Kimble % (Auto) 14.1 H 15.2 H Eos % (Auto) 3.1 3.8 Baso % (Auto) 0.0 0.1 Gran # 7.30 H 6.95 H Lymph # (Auto) 1.4 1.5 Kimble # (Auto) 1.5 H 1.6 H Eos # (Auto) 0.3 0.4 Baso # (Auto) 0.00 0.01 PT 31.9 H INR 2.72 H Sodium Potassium Chloride Carbon Dioxide Anion Gap BUN Creatinine Est GFR ( Amer) Est GFR (Non-Af Amer) Random Glucose Calcium Total Bilirubin AST ALT Alkaline Phosphatase Total Protein Albumin Globulin Albumin/Globulin Ratio Urine Color Urine Appearance Urine pH Ur Specific [place] Urine Protein Urine Glucose (UA) Urine Ketones Urine Blood Urine Nitrate Urine Bilirubin Urine Urobilinogen Ur Leukocyte Esterase Urine RBC Urine WBC Ur Epithelial Cells Urine Bacteria Blood Type Antibody Screen Crossmatch BBK History Checked 12/09/17 12/09/17 06:00 08:26 WBC RBC Hgb Hct MCV MCH MCHC RDW Plt Count MPV Gran % Lymph % (Auto) Kimble % (Auto) Eos % (Auto) Baso % (Auto) Gran # Lymph # (Auto) Kimble # (Auto) Eos # (Auto) Baso # (Auto) PT INR Sodium 141 Potassium 3.6 Chloride 107 Carbon Dioxide 28 Anion Gap 10 BUN 13 Creatinine 0.8 Est GFR ( Amer) > 60 Est GFR (Non-Af Amer) > 60 Random Glucose 106 Calcium 8.5 Total Bilirubin 0.2 AST 25 ALT 26 Alkaline Phosphatase 64 Total Protein 5.7 L Albumin 3.1 Globulin 2.7 Albumin/Globulin Ratio 1.1 Urine Color Yellow Urine Appearance Clear Urine pH 6.0 Ur Specific [place] 1.015 Urine Protein Negative Urine Glucose (UA) Negative Urine Ketones Negative Urine Blood Large H Urine Nitrate Negative Urine Bilirubin Negative Urine Urobilinogen 0.2 Ur Leukocyte Esterase Trace H Urine RBC 1 - 3 Urine WBC 0 - 2 Ur Epithelial Cells 4 - 5 Urine Bacteria Trace Blood Type Antibody Screen Crossmatch BBK History Checked Attending/Attestation - Attestation I have personally seen and examined this patient.: Yes I have fully participated in the care of the patient.: Yes I have reviewed all pertinent clinical information: Yes Notes (Text): -I agree with the above ICU consult note completed by the resident physician with the following additions and/or changes: -The patient is a 62 year old woman a-fib (on Coumadin), mitral valve repair ( s /p open heart surgery and repair bioprosthetic), CAD and COPD, recently admitted for UGIB due to side effect of Eliquis. Patient underwent an EGD and was discharged to TCU yesterday on Coumadin instead. While on TCU, she had a bloody BM and a sudden drop in Hgb (alongside initial low-normal SBPs). Therefore, she will now be admitted to the ICU and started on Protonix drip. 2- 3 units PRBCs ordered for transfusion. NPO and IVFs and GI consult. Of course , all anticoagulation held for time being. Monitor serial CBCs. Critical Care Time Spent: 30-45 minutes
[2017-12-07] MEDS: Sodium Chloride 0.9% 1,000 ML IV SCH (23:41)
[2017-12-08] MEDS: Pantoprazole 40mg/100mL NS 40 MG/100 ML BAG IVPB SCH ×3 (01:47→20:45)
[2017-12-08] MEDS ORDERED: Albuterol-Ipratrop 3 mg / 0.5 (3 ml) UD IH PRN (01:47)
[2017-12-08 02:27] LABS: MEAN CELL VOLUME 88.8 fl (80.0-105.0); MEAN CORPUSCULAR HGB CONC 33.8 g/dl (31.0-37.0); MEAN PLATELET VOLUME 9.2 fl (7.0-11.0); RBC 2.33 10^6/uL (3.5-6.1); RED CELL DISTRIBUTION WIDTH 16.1 % (11.5-14.5); WHITE BLOOD COUNT 15.1 10^3/ul (4.5-11.0)
[2017-12-08 02:50] LABS: PROTHROMBIN TIME 46.4 SECONDS (9.4-12.5)
[2017-12-08 02:51] LABS: PARTIAL THROMBOPLASTIN TIME 34.7 Seconds (25.1-36.5)
[2017-12-08 02:52] LABS: ALB/GLOB RATIO 1.1 (1.1-1.8); ALBUMIN 2.9 g/dL (3.0-4.8); ALT/SGPT 23 U/L (7-56); AST/SGOT 23 U/L (14-36); BLOOD UREA NITROGEN 32 mg/dL (7-21); CALCIUM 8.6 mg/dL (8.4-10.5); GFR AFRICAN-AMERICAN > 60; GFR NON-AFRICAN AMERICAN > 60
[2017-12-08 02:53] LABS: INR 3.96 (0.93-1.08)
--- NOTE | 2017-12-08 10:32 | RAD ---
HISTORY: Medical clearance COMPARISON: Comparison chest dated 11/26/2017 FINDINGS: LUNGS: Right paratracheal density felt to represent ectatic great vessels. . Mild bibasilar atelectasis with questionable small bilateral effusions left larger than right PLEURA: As above. No pneumothorax apparent. CARDIOVASCULAR: Cardiomegaly. Sternotomy wires and apparent prostatic valve replacements. OSSEOUS STRUCTURES: No significant abnormalities. VISUALIZED UPPER ABDOMEN: Normal. OTHER FINDINGS: None. IMPRESSION: Mild bibasilar atelectasis with questionable small bilateral effusions left larger than right
--- NOTE | 2017-12-08 11:13 | PN ---
DATE: 12/08/2017 [employer] REPORTER NOTE LOCATION: At [facility]. SUBJECTIVE: The patient is resting in bed. No complaints of increased shortness of breath, cough, wheezing, chest congestion. No abdominal pain. No chest pain at this time. The patient is very comfortable and hemodynamically stable. Is in isolation for ESBL in the urine. PHYSICAL EXAMINATION: VITAL SIGNS: Physical exam note that her temperature is 98.7, her pulse is 98, respirations are 19 and BP is 160/71, O2 saturation is 98% on room air. HEENT: Head is atraumatic, normocephalic. Eyes reactive to light. Ear, nose and throat seemed to be within normal limits. NECK: Supple. No JVD. No thyroid enlargement. No lymph nodes. HEART: Has regular rate and rhythm. Normal S1, S2. LUNGS: Reveal good breath sounds bilaterally. ABDOMEN: Soft, nontender, decreased bowel sounds. GENITALIA AND RECTAL: Deferred. MUSCULOSKELETAL: No joint deformities. EXTREMITIES: Reveal trace lower extremity edema. NEUROLOGICAL: She seems to be grossly intact. LABORATORY DATA: As far as her laboratories are concerned, her white count is 15.1, hemoglobin is 7, hematocrit 20.7 and platelets of 432,000. The patient's PT is 46.4 and INR is 3.96, PTT is 34.7. Sodium is 139, potassium 4.1, chloride 105, CO2 of 26 with a BUN of 32, creatinine of 0.9 and a glucose of 151. Chest x-ray results are pending. IMPRESSION: The patient has history of a gastric ulcer and has acute gastrointestinal bleed. The patient has anemia and initial episode of hypotension, which has been stabilized. The patient has atrial fibrillation, mitral valve repair, coronary artery disease, chronic obstructive pulmonary and as stated above urinary tract infection with extended-spectrum beta-lactamase. PLAN: As far as plan, we will transfuse packed red blood cells and follow the patient's hemoglobin closely. We will continue with DuoNeb as far as a bronchodilator. The patient is on Cardizem as well as Protonix and normal saline. Her Eliquis has been held as well as aspirin and we will follow closely and treat aggressively along with the other consultants and the primary care doctor. Elpidio Ward MD
[2017-12-08] MEDS ORDERED: Levalbuterol 1.25 MG/3 ML Inhal Soln UD IH PRN (11:37)
[2017-12-08 13:14] LABS: MEAN CELL VOLUME 89.6 fl (80.0-105.0); MEAN CORPUSCULAR HEMOGLOBIN 29.7 pg (25.0-35.0); MEAN CORPUSCULAR HGB CONC 33.2 g/dl (31.0-37.0); MEAN PLATELET VOLUME 9.6 fl (7.0-11.0); RBC 2.69 10^6/uL (3.5-6.1); RED CELL DISTRIBUTION WIDTH 15.8 % (11.5-14.5); WHITE BLOOD COUNT 11.1 10^3/ul (4.5-11.0)
[2017-12-08 13:30] LABS: INR 2.72 (0.93-1.08); PROTHROMBIN TIME 31.9 SECONDS (9.4-12.5)
--- NOTE | 2017-12-08 15:41 | CARD ---
APPROVED REPORT EKG Measurement Heart [id number] <Conclusion> Sinus rhythm with frequent APCs with aberrancy Septal infarct, age undetermined Abnormal ECG
[2017-12-08 22:30] LABS: EOS # 0.3 (0.0-0.7); EOS % 3.1 % (1.5-5.0); GRAN # 7.3 (1.4-6.5); GRAN % 69.7 % (50.0-68.0); HEMOGLOBIN 8.5 g/dL (12.0-16.0); LYMPH # 1.4 (1.2-3.4); LYMPH % 13.1 % (22.0-35.0); MEAN CORPUSCULAR HEMOGLOBIN 30.2 pg (25.0-35.0); MEAN PLATELET VOLUME 9.6 fl (7.0-11.0); MONO # 1.5 (0.1-0.6); MONO % 14.1 % (1.0-6.0); RBC 2.81 10^6/uL (3.5-6.1); RED CELL DISTRIBUTION WIDTH 15.8 % (11.5-14.5); WHITE BLOOD COUNT 10.5 10^3/ul (4.5-11.0)
[2017-12-08 22:34] VITALS: BMI 26.5
[2017-12-08] MEDS ORDERED: Pneumococcal 23-Valent Vaccine IM ONE (22:34)
[2017-12-09] MEDS: Sodium Chloride 0.9% 1,000 ML IV SCH ×3 (00:51→16:20)
[2017-12-09] MEDS: Pantoprazole 40mg/100mL NS 40 MG/100 ML BAG IVPB SCH ×6 (00:52→18:13)
--- NOTE | 2017-12-09 06:37 | CON ---
DATE: This patient was seen and evaluated earlier today. REASON FOR CONSULTATION: GI bleeding. HISTORY OF PRESENT ILLNESS: This is a 62-year-old patient with past medical history of atrial fibrillation, on Coumadin, status post mitral valve repair, coronary artery disease, was initially admitted to the med-surgery floor with GI bleeding. The patient was initially admitted to the hospital with shortness of breath on exertion for 1 week. The patient was on Eliquis prior to the last admission. The patient was also anemic. The patient was on iron supplement 3 times a week. The patient had a history of melena at that time. Upper GI endoscopy done. The patient's hemoglobin at that time initially on 11/26/2017 was 6.7. The patient was transfused 3 units of packed RBC at that time. Hemoglobin remained stable. Endoscopy showed large clean-based antral ulceration. The patient was started back on initially heparin. Hemoglobin remained stable. Started back on Coumadin. The patient was in TCU, noticed to have a drop in blood count and also melena and bleeding per rectum. The patient was transferred to the ER and admitted to the ICU now. The patient's hemoglobin dropped in TCU, it is up to 7. The patient is receiving second unit of transfusion. The patient did receive 1 unit of packed RBC and is receiving second unit now. No complaints of an abdominal pain. No vomiting blood. PAST MEDICAL HISTORY: His other past medical history is significant as above. SOCIAL HISTORY: Social alcohol use. Denies smoking. REVIEW OF SYSTEMS: other systems reviewed. PHYSICAL EXAMINATION: GENERAL: The patient is lying on the bed, not in acute distress. VITAL SIGNS: Temperature is 98.4, pulse 99, blood pressure is 170/98. HEENT: Atraumatic and anicteric. NECK: Supple. HEART: S1 and S2 heard. LUNGS: Bilateral air entry present. ABDOMEN: Soft. There is no mass palpable. No tenderness. EXTREMITIES: No cyanosis. No clubbing. NEUROLOGIC: Alert and oriented. Moves all the extremities. LABORATORY DATA: Patient's hemoglobin after 1 unit of transfusion is 8, hematocrit 24.1, WBC is 11.1, platelets 384. BUN 32, creatinine 0.9. LFTs are normal. Albumin 2.9. The patient had a urine culture done, which showed Klebsiella pneumonia, ESBL. The patient had history of loose bowel. Stool for C. diff was negative. IMPRESSION: 1. This is a 62-year-old patient with gastric ulcer, recently was in the TCU, on anticoagulation, had recurrence of the bleeding. The patient's INR was elevated to 4.1. The patient had a melena, now in ICU, is receiving second unit of transfusion and platelets. The likely cause of the bleeding is probably the gastric ulcer bleeding with coagulopathy. 2. History of diarrhea, improved, on vancomycin empirically. 3. History of urinary tract infection, extended-spectrum beta-lactamases. 4. History of gouty arthritis. The patient was in a short course of steroids. RECOMMENDATIONS: 1. Followup of the hemoglobin and hematocrit, and correct the coagulopathy, transfuse as needed. 2. We will consider repeating an upper GI endoscopy for further optimization. 3. Infectious Disease evaluation for an extended-spectrum beta-lactamases urinary tract infection in view of this patient has a prosthetic valve. 4. Paroxysmal atrial fibrillation. The patient needs to be long-term anticoagulation; however, Eliquis or newer anticoagulants are higher risk. If the patient needs to be on anticoagulation, this the low-dose Coumadin after further evaluation. 5. Continue the patient on Protonix drip. We will continue a short course. 6. History of acute kidney injury, improved. The patient has history of acute kidney injury, improved. The patient's BUN is elevated now, maybe secondary to the GI bleeding. We will discuss with Dr. Guerra. Thank you very much for allowing us to participate in the care of the patient. Sun Ramirez MD
[2017-12-09 07:28] LABS: BASO # 0.01 K/mm3 (0.0-2.0); BASO % 0.1 % (0.0-3.0); EOS # 0.4 (0.0-0.7); EOS % 3.8 % (1.5-5.0); GRAN # 6.95 (1.4-6.5); GRAN % 66.8 % (50.0-68.0); HEMOGLOBIN 8.8 g/dL (12.0-16.0); LYMPH # 1.5 (1.2-3.4); LYMPH % 14.1 % (22.0-35.0); MEAN CELL VOLUME 89.4 fl (80.0-105.0); MEAN CORPUSCULAR HGB CONC 33.6 g/dl (31.0-37.0); MONO # 1.6 (0.1-0.6); MONO % 15.2 % (1.0-6.0); RBC 2.93 10^6/uL (3.5-6.1); RED CELL DISTRIBUTION WIDTH 15.8 % (11.5-14.5); WHITE BLOOD COUNT 10.4 10^3/ul (4.5-11.0)
[2017-12-09 08:38] LABS: URINE BILIRUBIN NEGATIVE (NEGATIVE); URINE BLOOD LARGE (NEGATIVE); URINE GLUCOSE (UA) NEGATIVE (NEGATIVE); URINE LEUKOCYTE ESTERASE TRACE Leu/uL (NEGATIVE); URINE PROTEIN NEGATIVE mg/dL (<30 mg/dL); URINE UROBILINOGEN 0.2 E.U./dL (<1 E.U./dL)
[2017-12-09 08:58] LABS: URINE APPEARANCE CLEAR (CLEAR); URINE COLOR YELLOW (YELLOW)
[2017-12-09 08:59] LABS: ALB/GLOB RATIO 1.1 (1.1-1.8); ALBUMIN 3.1 g/dL (3.0-4.8); ALT/SGPT 26 U/L (7-56); AST/SGOT 25 U/L (14-36); BLOOD UREA NITROGEN 13 mg/dL (7-21); CALCIUM 8.5 mg/dL (8.4-10.5); GFR AFRICAN-AMERICAN > 60; GFR NON-AFRICAN AMERICAN > 60
[2017-12-09 09:48] LABS: URINE BACTERIA TRACE (NEG); URINE WBC 0 - 2 /hpf (0-6)
--- NOTE | 2017-12-09 10:35 | CP.PCM.PN ---
<Cyn Fragoso - Last Filed: 12/09/17 10:51> Subjective - Date & Time of Evaluation Date of Evaluation: 12/09/17 Time of Evaluation: 07:00 - Subjective Subjective: GI Progress Note for Daniel Correia PGY2 Patient seen and examined at bedside. As per nursing staff, there were no acute overnight events. Patient reports feeling better today. She denies having chest pain, shortness of breath, nausea/vomiting/diarrhea, fever/chills, dysuria or hematuria. Patient states she feels hungry and would like to eat. Objective - Vital Signs/Intake and Output Vital Signs (last 24 hours): Temp Pulse Resp BP Pulse Ox 97.5 F L 94 H 12 137/70 97 12/09/17 05:06 12/09/17 09:29 12/09/17 07:10 12/09/17 09:29 12/09/17 07:10 Intake and Output: 12/09/17 12/09/17 06:59 18:59 Intake Total 1763 Output Total 0 Balance 1763 - Medications Medications: Current Medications Albuterol/Ipratropium (Duoneb 3 Mg/0.5 Mg (3 Ml) Ud) 3 ml IH [id number] PRN PRN Reason: Shortness of Breath Arformoterol Tartrate (Brovana) 15 mcg IH [id number] GUALBERTO Budesonide (Pulmicort Respules) 0.25 mg IH [id number] GUALBERTO Diltiazem HCl (Cardizem) 5 mg IVP Q6 PRN PRN Reason: Heart rate Sodium Chloride (Sodium Chloride 0.9%) 1,000 mls @ 100 mls/hr IV .Q10H [facility] Last Admin: 12/09/17 00:51 Dose: 100 mls/hr Pantoprazole Sodium (Protonix 40mg Ivpb) 40 mg in 100 mls @ 20 mls/hr IVPB .Q5H [facility] Last Admin: 12/09/17 07:45 Dose: Not Given Levalbuterol HCl (Xopenex) 1.25 mg IH [id number] PRN PRN Reason: Shortness of Breath Metoprolol Tartrate (Lopressor) 25 mg PO BID [facility] Last Admin: 12/09/17 09:29 Dose: 25 mg - Labs Labs: 12/09/17 05:40 12/09/17 06:00 PT 31.9 SECONDS (9.4-12.5) H 12/08/17 12:55 INR 2.72 (0.93-1.08) H 12/08/17 12:55 APTT 34.7 Seconds (25.1-36.5) 12/08/17 02:15 - Constitutional Appears: No Acute Distress - Head Exam Head Exam: ATRAUMATIC, NORMAL INSPECTION, NORMOCEPHALIC - Eye Exam Eye Exam: Normal appearance, PERRL Pupil Exam: NORMAL ACCOMODATION - ENT Exam ENT Exam: Mucous Membranes Moist - Respiratory Exam Respiratory Exam: Clear to Ausculation Bilateral, NORMAL BREATHING PATTERN. absent: Rales, Rhonchi, Wheezes - Cardiovascular Exam Cardiovascular Exam: Irregular Rhythm, +S1, +S2. absent: Tachycardia, Gallop, Rubs, Murmur - GI/Abdominal Exam GI & Abdominal Exam: Soft, Tenderness (mild epigastric ), Normal Bowel Sounds. absent: Rigid, Mass, Rebound - Extremities Exam Extremities Exam: absent: Calf Tenderness, Pedal Edema - Neurological Exam Neurological Exam: Alert, Awake, CN II-XII Intact, Oriented x3 - Psychiatric Exam Psychiatric exam: Normal Affect, Normal Mood - Skin Skin Exam: Dry, Warm Assessment and Plan - Assessment and Plan (Free Text) Assessment: This is a 62yo AA female with past medical history of a.fib (was on Coumadin), MV repair, CAD who was admitted for 1. GI bleed secondary to antral ulcer seen on EGD 2. UTI (ESBL +) s/p IV antibiotics 3. Diarrhea- resolved 4. A.fib (anticoagulation on hold) 5. CAD Plan: The plan is for patient to have EGD today to monitor her gastric ulcer for further bleeding. Diet can be advanced after EGD. Hgb is stable at this time and will continue to monitor. Continue Protonix drip. Consider re-starting anticoagulation after EGD for history of a.fib. With anticoagulation on hold, patient is at risk for adverse events such as CVA. We will make further recommendations after EGD today. Case seen, discussed and reviewed with Dr. Ramirez. Daniel Fragoso PGY2 <Sun Ramirez V - Last Filed: 12/09/17 21:43> Objective - Vital Signs/Intake and Output Vital Signs (last 24 hours): Temp Pulse Resp BP Pulse Ox 97.5 F L 80 16 166/93 H 94 L 12/09/17 05:06 12/09/17 20:23 12/09/17 20:11 12/09/17 20:00 12/09/17 20:00 Intake and Output: 12/09/17 12/10/17 18:59 06:59 Intake Total 1763 200 Output Total 400 625 Balance 1363 -425 - Medications Medications: Current Medications Albuterol/Ipratropium (Duoneb 3 Mg/0.5 Mg (3 Ml) Ud) 3 ml IH [id number] PRN PRN Reason: Shortness of Breath Arformoterol Tartrate (Brovana) 15 mcg IH [id number] [facility] Last Admin: 12/09/17 20:22 Dose: 15 mcg Budesonide (Pulmicort Respules) 0.25 mg IH [id number] [facility] Last Admin: 12/09/17 20:22 Dose: 0.25 mg Diltiazem HCl (Cardizem) 5 mg IVP Q6 PRN PRN Reason: Heart rate Diltiazem HCl (Cardizem Cd) 120 mg PO DAILY [facility] Pantoprazole Sodium (Protonix 40mg Ivpb) 40 mg in 100 mls @ 20 mls/hr IVPB .Q5H [facility] Last Admin: 12/09/17 18:13 Dose: 20 mls/hr Meropenem 500 mg/ Sodium (Chloride) 50 mls @ 100 mls/hr IVPB Q12 [id number] PRN Reason: Protocol Stop: 12/09/17 22:29 Levalbuterol HCl (Xopenex) 1.25 mg IH [id number] PRN PRN Reason: Shortness of Breath Metoprolol Tartrate (Lopressor) 25 mg PO BID [facility] Last Admin: 12/09/17 17:04 Dose: 25 mg - Labs Labs: 12/09/17 17:00 12/09/17 06:00 PT 31.9 SECONDS (9.4-12.5) H 12/08/17 12:55 INR 2.72 (0.93-1.08) H 12/08/17 12:55 APTT 34.7 Seconds (25.1-36.5) 12/08/17 02:15 Attending/Attestation - Attestation I have personally seen and examined this patient.: Yes I have fully participated in the care of the patient.: Yes I have reviewed all pertinent clinical information, including history, physical exam and plan: Yes Notes (Text): This is an addendum to GI progress report dictated by the [facility] Worker.The patient was seen and examined earlier. Medical records, lab studies, imagings were reviewed. Last 24 hours events reviewed. Agreed with the above treatment plan as outlined in [facility] Worker 's notes the with the addition of the following Hemodynamically stable On examination abdomen soft no tenderness On isolation for ESBL in urine repeat culture pending Plan for EGD to reevaluate the gastric ulcer status which has been rescheduled in a.m. continue Protonix clear liquid diet Close follow-up of hemoglobin 12/09/17 21:39
--- NOTE | 2017-12-09 12:42 | CP.CCUPN ---
<NegroJesus - Last Filed: 12/09/17 12:39> CCU Subjective - Physician Review Subjective (Free Text): 12/09/17 09:30A Patient seen and examined at bedside. No acute events overnight. Patient states she is feeling well and denies any symptoms of fatigue or dizziness. Patient offers no new complaints. CCU Objective - Vital Signs / Intake & Output Vital Signs (Last 4 hours): Vital Signs Pulse Resp BP Pulse Ox 12/09/17 10:49 83 14 12/09/17 10:48 90 21 12/09/17 10:47 87 21 12/09/17 10:46 87 22 12/09/17 10:45 82 19 12/09/17 10:44 90 14 12/09/17 10:43 94 H 20 12/09/17 10:42 83 23 12/09/17 10:41 89 13 12/09/17 10:40 91 H 17 12/09/17 10:39 97 H 14 12/09/17 10:38 87 12 12/09/17 10:37 84 18 12/09/17 10:36 91 H 23 12/09/17 10:35 88 17 12/09/17 10:34 93 H 30 H 12/09/17 10:33 89 19 12/09/17 10:32 99 H 29 H 12/09/17 10:31 90 12/09/17 10:30 95 H 35 H 12/09/17 10:29 90 13 12/09/17 10:26 99 H 41 H 12/09/17 10:24 90 35 H 12/09/17 10:20 87 16 95 12/09/17 10:10 93 H 20 95 12/09/17 10:00 98 H 17 153/69 H 97 12/09/17 09:57 95 H 12/09/17 09:56 97 H 18 12/09/17 09:50 90 15 98 12/09/17 09:41 88 16 12/09/17 09:40 86 20 99 12/09/17 09:30 89 19 79 L 12/09/17 09:29 94 H 137/70 12/09/17 09:25 81 137/70 100 12/09/17 09:20 90 96 12/09/17 09:10 95 H 23 98 12/09/17 09:00 94 H 29 H 99 12/09/17 08:50 92 H 16 96 12/09/17 08:40 94 H 17 98 Intake and Output (Last 8hrs): Intake & Output 12/08/17 12/09/17 12/09/17 22:59 06:59 14:59 Intake Total 1050 1763 Output Total 1000 0 Balance 50 1763 Weight 76.884 kg Intake: IV 240 1440 Left Forearm 0 Left Wrist 240 1440 Oral 0 Tube Feeding 0 TPN/PPN 0 Blood Product 810 323 Lipid 0 Albumin 0 Other 0 Output: Urine 400 Urine, Voided 400 Stool 600 0 Urine/Stool Mix 0 Emesis 0 Oral Regurgitation 0 Other 0 Other: Voiding Method Bedpan # Voids Urine, Voided 3 # Bowel Movements 2 3 - Physical Exam Head: Positive for: Atraumatic, Normocephalic Pupils: Positive for: PERRL Extroacular Muscles: Positive for: EOMI Conjunctiva: Positive for: Normal Mouth: Positive for: Moist Mucous Membranes Neck: Positive for: Normal Range of Motion Respiratory/Chest: Positive for: Clear to Auscultation, Good Air Exchange. Negative for: Respiratory Distress, Accessory Muscle Use Cardiovascular: Positive for: Regular Rate and Rhythm, Normal S1, S2. Negative for: Murmurs Abdomen: Negative for: Tenderness, Distention, Peritoneal Signs Back: Positive for: Normal Inspection Upper Extremity: Positive for: Normal Inspection. Negative for: Cyanosis, Edema Lower Extremity: Positive for: Normal Inspection. Negative for: Edema Neurological: Positive for: GCS=15, CN II-XII Intact, Speech Normal Skin: Positive for: Warm, Dry, Normal Color. Negative for: Rashes Psychiatric: Positive for: Alert, Oriented x 3, Normal Insight, Normal Concentration - Medications Active Medications: Active Medications Generic Name Dose Route Start Last Admin Trade Name Freq PRN Reason Stop Dose Admin Albuterol/Ipratropium 3 ml 12/08/17 01:47 Duoneb 3 Mg/0.5 Mg (3 Ml) Ud IH [id number] PRN Shortness of Breath Arformoterol Tartrate 15 mcg 12/09/17 20:00 Brovana IH [id number] GUALBERTO Budesonide 0.25 mg 12/09/17 20:00 Pulmicort Respules IH [id number] GUALBERTO Diltiazem HCl 5 mg 12/08/17 01:47 Cardizem IVP Q6 PRN Heart rate Sodium Chloride 1,000 mls @ 100 mls/hr 12/07/17 23:15 12/09/17 00:51 Sodium Chloride 0.9% IV 100 mls/hr .Q10H GUALBERTO Administration Pantoprazole Sodium 40 mg in 100 mls @ 20 mls/hr 12/08/17 01:45 12/09/17 07: 45 Protonix 40mg Ivpb IVPB Not Given .Q5H GUALBERTO Levalbuterol HCl 1.25 mg 12/08/17 11:37 Xopenex IH [id number] PRN Shortness of Breath Metoprolol Tartrate 25 mg 12/08/17 11:45 12/09/17 09:29 Lopressor PO 25 mg BID GUALBERTO Administration - Patient Studies Lab Studies: Lab Studies 12/09/17 12/09/17 12/09/17 Range/Units 08:26 06:00 05:40 WBC 10.4 (4.5-11.0) 10^3/ul RBC 2.93 L (3.5-6.1) 10^6/uL Hgb 8.8 L (12.0-16.0) g/dL Hct 26.2 L (36.0-48.0) % MCV 89.4 (80.0-105.0) fl MCH 30.0 (25.0-35.0) pg MCHC 33.6 (31.0-37.0) g/dl RDW 15.8 H (11.5-14.5) % Plt Count 386 (120.0-450.0) 10^3/uL MPV 10.0 (7.0-11.0) fl Gran % 66.8 (50.0-68.0) % Lymph % (Auto) 14.1 L (22.0-35.0) % [place] % (Auto) 15.2 H (1.0-6.0) % Eos % (Auto) 3.8 (1.5-5.0) % Baso % (Auto) 0.1 (0.0-3.0) % Gran # 6.95 H (1.4-6.5) Lymph # (Auto) 1.5 (1.2-3.4) [place] # (Auto) 1.6 H (0.1-0.6) Eos # (Auto) 0.4 (0.0-0.7) Baso # (Auto) 0.01 (0.0-2.0) K/mm3 PT (9.4-12.5) SECONDS INR (0.93-1.08) Sodium 141 (132-148) mmol/L Potassium 3.6 (3.6-5.0) mmol/L Chloride 107 (98-107) mmol/L Carbon Dioxide 28 (21-33) mmol/L Anion Gap 10 (10-20) BUN 13 (7-21) mg/dL Creatinine 0.8 (0.7-1.2) mg/dl Est GFR ( Amer) > 60 Est GFR (Non-Af Amer) > 60 Random Glucose 106 (70-110) mg/dL Calcium 8.5 (8.4-10.5) mg/dL Total Bilirubin 0.2 (0.2-1.3) mg/dL AST 25 (14-36) U/L ALT 26 (7-56) U/L Alkaline Phosphatase 64 (38-126) U/L Total Protein 5.7 L (5.8-8.3) g/dL Albumin 3.1 (3.0-4.8) g/dL Globulin 2.7 gm/dL Albumin/Globulin Ratio 1.1 (1.1-1.8) Urine Color Yellow (YELLOW) Urine Appearance Clear (CLEAR) Urine pH 6.0 (4.7-8.0) Ur Specific [place] 1.015 (1.005-1.035) Urine Protein Negative (<30 mg/dL) mg/dL Urine Glucose (UA) Negative (NEGATIVE) mg/dL Urine Ketones Negative (NEGATIVE) mg/dL Urine Blood Large H (NEGATIVE) Urine Nitrate Negative (NEGATIVE) Urine Bilirubin Negative (NEGATIVE) Urine Urobilinogen 0.2 (<1 E.U./dL) E.U./dL Ur Leukocyte Esterase Trace H (NEGATIVE) Miguel/uL Urine RBC 1 - 3 (0-2) /hpf Urine WBC 0 - 2 (0-6) /hpf Ur Epithelial Cells 4 - 5 (0-5) /hpf Urine Bacteria Trace (NEG) Blood Type Antibody Screen Crossmatch BBK History Checked 12/08/17 12/08/17 12/08/17 Range/Units 22:20 12:55 12:55 WBC 10.5 11.1 H D (4.5-11.0) 10^3/ul RBC 2.81 L 2.69 L (3.5-6.1) 10^6/uL Hgb 8.5 L 8.0 L (12.0-16.0) g/dL Hct 25.0 L 24.1 L (36.0-48.0) % MCV 89.0 89.6 (80.0-105.0) fl MCH 30.2 29.7 (25.0-35.0) pg MCHC 34.0 33.2 (31.0-37.0) g/dl RDW 15.8 H 15.8 H (11.5-14.5) % Plt Count 353 384 (120.0-450.0) 10^3/uL MPV 9.6 9.6 (7.0-11.0) fl Gran % 69.7 H (50.0-68.0) % Lymph % (Auto) 13.1 L (22.0-35.0) % [place] % (Auto) 14.1 H (1.0-6.0) % Eos % (Auto) 3.1 (1.5-5.0) % Baso % (Auto) 0.0 (0.0-3.0) % Gran # 7.30 H (1.4-6.5) Lymph # (Auto) 1.4 (1.2-3.4) [place] # (Auto) 1.5 H (0.1-0.6) Eos # (Auto) 0.3 (0.0-0.7) Baso # (Auto) 0.00 (0.0-2.0) K/mm3 PT 31.9 H (9.4-12.5) SECONDS INR 2.72 H (0.93-1.08) Sodium (132-148) mmol/L Potassium (3.6-5.0) mmol/L Chloride (98-107) mmol/L Carbon Dioxide (21-33) mmol/L Anion Gap (10-20) BUN (7-21) mg/dL Creatinine (0.7-1.2) mg/dl Est GFR ( Amer) Est GFR (Non-Af Amer) Random Glucose (70-110) mg/dL Calcium (8.4-10.5) mg/dL Total Bilirubin (0.2-1.3) mg/dL AST (14-36) U/L ALT (7-56) U/L Alkaline Phosphatase (38-126) U/L Total Protein (5.8-8.3) g/dL Albumin (3.0-4.8) g/dL Globulin gm/dL Albumin/Globulin Ratio (1.1-1.8) Urine Color (YELLOW) Urine Appearance (CLEAR) Urine pH (4.7-8.0) Ur Specific [place] (1.005-1.035) Urine Protein (<30 mg/dL) mg/dL Urine Glucose (UA) (NEGATIVE) mg/dL Urine Ketones (NEGATIVE) mg/dL Urine Blood (NEGATIVE) Urine Nitrate (NEGATIVE) Urine Bilirubin (NEGATIVE) Urine Urobilinogen (<1 E.U./dL) E.U./dL Ur Leukocyte Esterase (NEGATIVE) Miguel/uL Urine RBC (0-2) /hpf Urine WBC (0-6) /hpf Ur Epithelial Cells (0-5) /hpf Urine Bacteria (NEG) Blood Type Antibody Screen Crossmatch BBK History Checked 12/08/17 12/08/17 Range/Units 02:15 02:15 WBC (4.5-11.0) 10^3/ul RBC (3.5-6.1) 10^6/uL Hgb (12.0-16.0) g/dL Hct (36.0-48.0) % MCV (80.0-105.0) fl MCH (25.0-35.0) pg MCHC (31.0-37.0) g/dl RDW (11.5-14.5) % Plt Count (120.0-450.0) 10^3/uL MPV (7.0-11.0) fl Gran % (50.0-68.0) % Lymph % (Auto) (22.0-35.0) % [place] % (Auto) (1.0-6.0) % Eos % (Auto) (1.5-5.0) % Baso % (Auto) (0.0-3.0) % Gran # (1.4-6.5) Lymph # (Auto) (1.2-3.4) [place] # (Auto) (0.1-0.6) Eos # (Auto) (0.0-0.7) Baso # (Auto) (0.0-2.0) K/mm3 PT (9.4-12.5) SECONDS INR (0.93-1.08) Sodium (132-148) mmol/L Potassium (3.6-5.0) mmol/L Chloride (98-107) mmol/L Carbon Dioxide (21-33) mmol/L Anion Gap (10-20) BUN (7-21) mg/dL Creatinine (0.7-1.2) mg/dl Est GFR ( Amer) Est GFR (Non-Af Amer) Random Glucose (70-110) mg/dL Calcium (8.4-10.5) mg/dL Total Bilirubin (0.2-1.3) mg/dL AST (14-36) U/L ALT (7-56) U/L Alkaline Phosphatase (38-126) U/L Total Protein (5.8-8.3) g/dL Albumin (3.0-4.8) g/dL Globulin gm/dL Albumin/Globulin Ratio (1.1-1.8) Urine Color (YELLOW) Urine Appearance (CLEAR) Urine pH (4.7-8.0) Ur Specific [place] (1.005-1.035) Urine Protein (<30 mg/dL) mg/dL Urine Glucose (UA) (NEGATIVE) mg/dL Urine Ketones (NEGATIVE) mg/dL Urine Blood (NEGATIVE) Urine Nitrate (NEGATIVE) Urine Bilirubin (NEGATIVE) Urine Urobilinogen (<1 E.U./dL) E.U./dL Ur Leukocyte Esterase (NEGATIVE) Miguel/uL Urine RBC (0-2) /hpf Urine WBC (0-6) /hpf Ur Epithelial Cells (0-5) /hpf Urine Bacteria (NEG) Blood Type O POSITIVE O POSITIVE Antibody Screen Negative Negative Crossmatch See Detail BBK History Checked Patient has bt Patient has bt Laboratory Results - last 24 hr 12/08/17 12/08/17 12/08/17 02:15 02:15 12:55 WBC 11.1 H D RBC 2.69 L Hgb 8.0 L Hct 24.1 L MCV 89.6 MCH 29.7 MCHC 33.2 RDW 15.8 H Plt Count 384 MPV 9.6 Gran % Lymph % (Auto) [place] % (Auto) Eos % (Auto) Baso % (Auto) Gran # Lymph # (Auto) [place] # (Auto) Eos # (Auto) Baso # (Auto) PT INR Sodium Potassium Chloride Carbon Dioxide Anion Gap BUN Creatinine Est GFR ( Amer) Est GFR (Non-Af Amer) Random Glucose Calcium Total Bilirubin AST ALT Alkaline Phosphatase Total Protein Albumin Globulin Albumin/Globulin Ratio Urine Color Urine Appearance Urine pH Ur Specific [place] Urine Protein Urine Glucose (UA) Urine Ketones Urine Blood Urine Nitrate Urine Bilirubin Urine Urobilinogen Ur Leukocyte Esterase Urine RBC Urine WBC Ur Epithelial Cells Urine Bacteria Blood Type O POSITIVE O POSITIVE Antibody Screen Negative Negative Crossmatch See Detail BBK History Checked Patient has bt Patient has bt 12/08/17 12/08/17 12/09/17 12:55 22:20 05:40 WBC 10.5 10.4 RBC 2.81 L 2.93 L Hgb 8.5 L 8.8 L Hct 25.0 L 26.2 L MCV 89.0 89.4 MCH 30.2 30.0 MCHC 34.0 33.6 RDW 15.8 H 15.8 H Plt Count 353 386 MPV 9.6 10.0 Gran % 69.7 H 66.8 Lymph % (Auto) 13.1 L 14.1 L [place] % (Auto) 14.1 H 15.2 H Eos % (Auto) 3.1 3.8 Baso % (Auto) 0.0 0.1 Gran # 7.30 H 6.95 H Lymph # (Auto) 1.4 1.5 [place] # (Auto) 1.5 H 1.6 H Eos # (Auto) 0.3 0.4 Baso # (Auto) 0.00 0.01 PT 31.9 H INR 2.72 H Sodium Potassium Chloride Carbon Dioxide Anion Gap BUN Creatinine Est GFR ( Amer) Est GFR (Non-Af Amer) Random Glucose Calcium Total Bilirubin AST ALT Alkaline Phosphatase Total Protein Albumin Globulin Albumin/Globulin Ratio Urine Color Urine Appearance Urine pH Ur Specific [place] Urine Protein Urine Glucose (UA) Urine Ketones Urine Blood Urine Nitrate Urine Bilirubin Urine Urobilinogen Ur Leukocyte Esterase Urine RBC Urine WBC Ur Epithelial Cells Urine Bacteria Blood Type Antibody Screen Crossmatch BBK History Checked 12/09/17 12/09/17 06:00 08:26 WBC RBC Hgb Hct MCV MCH MCHC RDW Plt Count MPV Gran % Lymph % (Auto) [place] % (Auto) Eos % (Auto) Baso % (Auto) Gran # Lymph # (Auto) [place] # (Auto) Eos # (Auto) Baso # (Auto) PT INR Sodium 141 Potassium 3.6 Chloride 107 Carbon Dioxide 28 Anion Gap 10 BUN 13 Creatinine 0.8 Est GFR ( Amer) > 60 Est GFR (Non-Af Amer) > 60 Random Glucose 106 Calcium 8.5 Total Bilirubin 0.2 AST 25 ALT 26 Alkaline Phosphatase 64 Total Protein 5.7 L Albumin 3.1 Globulin 2.7 Albumin/Globulin Ratio 1.1 Urine Color Yellow Urine Appearance Clear Urine pH 6.0 Ur Specific [place] 1.015 Urine Protein Negative Urine Glucose (UA) Negative Urine Ketones Negative Urine Blood Large H Urine Nitrate Negative Urine Bilirubin Negative Urine Urobilinogen 0.2 Ur Leukocyte Esterase Trace H Urine RBC 1 - 3 Urine WBC 0 - 2 Ur Epithelial Cells 4 - 5 Urine Bacteria Trace Blood Type Antibody Screen Crossmatch BBK History Checked Assessment/Plan - Assessment and Plan (Free Text) Assessment: 62 F with a pertinent medical history of A-Fib on Eliquis and Gastritis with [place] 3 non-bleeding gastric ulcer was transferred from TCU on 12/06 for UGIB with initial Hgb of 7.0 with INR of 4.14. Patient was given 2 PRBC and 1 FFP and is now stabilizing. H/H is improving with Hgb of 8.8 today. Of note, patient is on contact for asymptomatic bacteruria colonized by extended -spectrum beta-lactamase klebsiella pneumonia, but repeat UA on this admission is negative for UTI. She also recently underwent course of Vanc until C-Diff antigen was negative. Chronic medical problems are MV repair s/p MVR bioprosthetic, CAD, and COPD. Plan Neuro: - Maintain euthermia Pulm: - Hx COPD: Duoneb 3 q6 and Xopenex 3 q6 (for tachycardia); Brovana, Pulmicort - Maintain SaO2 above 92% Cardio: - Hx A-Fib: Cardizem IV PRN; hold Eliquis 2/2 GIB; Cardio consult: Dr. Beebe - Hx CAD: hold ASA 2/2 GIB; Continue Lopressor BID GI: - UGIB s/p 2 PRBC, 1 FFP: Protonix gtt; NPO, NS@100 mls/hr - GI Consult: Dr. Ramirez Repeat endoscopy today - CBC q8 Renal: - Strict I/O's Endo: - Maintain euglycemia Heme: - Hold Eliquis and ASA - Monitor H/H - Heme: Dr Jimenez ID: - Contact precautions for ESBL Klebiella: No treatment needed - Recent C Diff Infection: Resolved - ID: Dr Valenzuela Dispo: At this time, patient is stable for transfer to telemetry FEN: NPO Access: Peripheral IVs Ppx: Protonix gtt, SCD <Rinku Camarena - Last Filed: 12/09/17 14:22> CCU Objective - Vital Signs / Intake & Output Vital Signs (Last 4 hours): Vital Signs Pulse Resp BP Pulse Ox 12/09/17 13:02 79 20 144/85 91 L 12/09/17 13:00 97 H 84 L 12/09/17 12:57 77 19 12/09/17 12:56 85 33 H 12/09/17 12:55 95 H 12/09/17 12:53 94 H 12/09/17 12:52 91 H 33 H 12/09/17 12:51 77 27 H 12/09/17 12:50 89 20 12/09/17 12:49 92 H 28 H 12/09/17 12:48 90 24 12/09/17 12:47 87 21 12/09/17 12:46 84 30 H 12/09/17 12:45 80 38 H 12/09/17 12:44 84 37 H 12/09/17 12:43 83 20 12/09/17 12:42 79 31 H 12/09/17 12:19 81 16 12/09/17 12:18 84 28 H 12/09/17 12:17 88 22 12/09/17 12:16 101 H 38 H 12/09/17 12:15 96 H 18 12/09/17 12:13 94 H 34 H 12/09/17 12:00 95 H 18 160/75 H 99 12/09/17 11:46 83 24 12/09/17 11:16 96 H 13 12/09/17 11:15 83 10 L 12/09/17 11:13 86 06/04/18 11:12 82 30 H 12/09/17 11:11 93 H 19 12/09/17 11:10 82 21 12/09/17 11:09 85 14 12/09/17 11:08 91 H 17 12/09/17 11:07 88 10 L 12/09/17 11:06 86 13 12/09/17 11:05 82 15 12/09/17 11:04 95 H 16 12/09/17 11:03 92 H 16 12/09/17 11:02 78 13 12/09/17 11:01 88 15 12/09/17 11:00 165/87 H 12/09/17 10:59 90 17 12/09/17 10:58 88 16 12/09/17 10:57 84 12/09/17 10:56 93 H 20 12/09/17 10:55 85 14 12/09/17 10:54 82 16 12/09/17 10:53 86 15 12/09/17 10:49 83 14 12/09/17 10:48 90 21 12/09/17 10:47 87 21 12/09/17 10:46 87 22 12/09/17 10:45 82 19 12/09/17 10:44 90 14 12/09/17 10:43 94 H 20 12/09/17 10:42 83 23 12/09/17 10:41 89 13 12/09/17 10:40 91 H 17 12/09/17 10:39 97 H 14 12/09/17 10:38 87 12 12/09/17 10:37 84 18 12/09/17 10:36 91 H 23 12/09/17 10:35 88 17 12/09/17 10:34 93 H 30 H 12/09/17 10:33 89 19 12/09/17 10:32 99 H 29 H 12/09/17 10:31 90 12/09/17 10:30 95 H 35 H 12/09/17 10:29 90 13 12/09/17 10:26 99 H 41 H 12/09/17 10:24 90 35 H 12/09/17 10:20 87 16 95 Intake and Output (Last 8hrs): Intake & Output 12/08/17 12/09/17 12/09/17 22:59 06:59 14:59 Intake Total 1050 1763 Output Total 1000 0 Balance 50 1763 Weight 169 lb 8 oz Intake: IV 240 1440 Left Forearm 0 Left Wrist 240 1440 Oral 0 Tube Feeding 0 TPN/PPN 0 Blood Product 810 323 Lipid 0 Albumin 0 Other 0 Output: Urine 400 Urine, Voided 400 Stool 600 0 Urine/Stool Mix 0 Emesis 0 Oral Regurgitation 0 Other 0 Other: Voiding Method Bedpan # Voids Urine, Voided 3 # Bowel Movements 2 3 - Medications Active Medications: Active Medications Generic Name Dose Route Start Last Admin Trade Name Freq PRN Reason Stop Dose Admin Albuterol/Ipratropium 3 ml 12/08/17 01:47 Duoneb 3 Mg/0.5 Mg (3 Ml) Ud IH [id number] PRN Shortness of Breath Arformoterol Tartrate 15 mcg 12/09/17 20:00 Brovana IH [id number] GUALBERTO Budesonide 0.25 mg 12/09/17 20:00 Pulmicort Respules IH [id number] GUALBERTO Diltiazem HCl 5 mg 12/08/17 01:47 Cardizem IVP Q6 PRN Heart rate Sodium Chloride 1,000 mls @ 100 mls/hr 12/07/17 23:15 12/09/17 00:51 Sodium Chloride 0.9% IV 100 mls/hr .Q10H GUALBERTO Administration Pantoprazole Sodium 40 mg in 100 mls @ 20 mls/hr 12/08/17 01:45 12/09/17 07: 45 Protonix 40mg Ivpb IVPB Not Given .Q5H GUALBERTO Levalbuterol HCl 1.25 mg 12/08/17 11:37 Xopenex IH [id number] PRN Shortness of Breath Metoprolol Tartrate 25 mg 12/08/17 11:45 12/09/17 09:29 Lopressor PO 25 mg BID GUALEBRTO Administration - Patient Studies Lab Studies: Lab Studies 12/09/17 12/09/17 12/09/17 Range/Units 08:26 06:00 05:40 WBC 10.4 (4.5-11.0) 10^3/ul RBC 2.93 L (3.5-6.1) 10^6/uL Hgb 8.8 L (12.0-16.0) g/dL Hct 26.2 L (36.0-48.0) % MCV 89.4 (80.0-105.0) fl MCH 30.0 (25.0-35.0) pg MCHC 33.6 (31.0-37.0) g/dl RDW 15.8 H (11.5-14.5) % Plt Count 386 (120.0-450.0) 10^3/uL MPV 10.0 (7.0-11.0) fl Gran % 66.8 (50.0-68.0) % Lymph % (Auto) 14.1 L (22.0-35.0) % [place] % (Auto) 15.2 H (1.0-6.0) % Eos % (Auto) 3.8 (1.5-5.0) % Baso % (Auto) 0.1 (0.0-3.0) % Gran # 6.95 H (1.4-6.5) Lymph # (Auto) 1.5 (1.2-3.4) [place] # (Auto) 1.6 H (0.1-0.6) Eos # (Auto) 0.4 (0.0-0.7) Baso # (Auto) 0.01 (0.0-2.0) K/mm3 Sodium 141 (132-148) mmol/L Potassium 3.6 (3.6-5.0) mmol/L Chloride 107 (98-107) mmol/L Carbon Dioxide 28 (21-33) mmol/L Anion Gap 10 (10-20) BUN 13 (7-21) mg/dL Creatinine 0.8 (0.7-1.2) mg/dl Est GFR ( Amer) > 60 Est GFR (Non-Af Amer) > 60 Random Glucose 106 (70-110) mg/dL Calcium 8.5 (8.4-10.5) mg/dL Total Bilirubin 0.2 (0.2-1.3) mg/dL AST 25 (14-36) U/L ALT 26 (7-56) U/L Alkaline Phosphatase 64 (38-126) U/L Total Protein 5.7 L (5.8-8.3) g/dL Albumin 3.1 (3.0-4.8) g/dL Globulin 2.7 gm/dL Albumin/Globulin Ratio 1.1 (1.1-1.8) Urine Color Yellow (YELLOW) Urine Appearance Clear (CLEAR) Urine pH 6.0 (4.7-8.0) Ur Specific [place] 1.015 (1.005-1.035) Urine Protein Negative (<30 mg/dL) mg/dL Urine Glucose (UA) Negative (NEGATIVE) mg/dL Urine Ketones Negative (NEGATIVE) mg/dL Urine Blood Large H (NEGATIVE) Urine Nitrate Negative (NEGATIVE) Urine Bilirubin Negative (NEGATIVE) Urine Urobilinogen 0.2 (<1 E.U./dL) E.U./dL Ur Leukocyte Esterase Trace H (NEGATIVE) Miguel/uL Urine RBC 1 - 3 (0-2) /hpf Urine WBC 0 - 2 (0-6) /hpf Ur Epithelial Cells 4 - 5 (0-5) /hpf Urine Bacteria Trace (NEG) Blood Type Antibody Screen Crossmatch BBK History Checked 12/08/17 12/08/17 12/08/17 Range/Units 22:20 02:15 02:15 WBC 10.5 (4.5-11.0) 10^3/ul RBC 2.81 L (3.5-6.1) 10^6/uL Hgb 8.5 L (12.0-16.0) g/dL Hct 25.0 L (36.0-48.0) % MCV 89.0 (80.0-105.0) fl MCH 30.2 (25.0-35.0) pg MCHC 34.0 (31.0-37.0) g/dl RDW 15.8 H (11.5-14.5) % Plt Count 353 (120.0-450.0) 10^3/uL MPV 9.6 (7.0-11.0) fl Gran % 69.7 H (50.0-68.0) % Lymph % (Auto) 13.1 L (22.0-35.0) % [place] % (Auto) 14.1 H (1.0-6.0) % Eos % (Auto) 3.1 (1.5-5.0) % Baso % (Auto) 0.0 (0.0-3.0) % Gran # 7.30 H (1.4-6.5) Lymph # (Auto) 1.4 (1.2-3.4) [place] # (Auto) 1.5 H (0.1-0.6) Eos # (Auto) 0.3 (0.0-0.7) Baso # (Auto) 0.00 (0.0-2.0) K/mm3 Sodium (132-148) mmol/L Potassium (3.6-5.0) mmol/L Chloride (98-107) mmol/L Carbon Dioxide (21-33) mmol/L Anion Gap (10-20) BUN (7-21) mg/dL Creatinine (0.7-1.2) mg/dl Est GFR ( Amer) Est GFR (Non-Af Amer) Random Glucose (70-110) mg/dL Calcium (8.4-10.5) mg/dL Total Bilirubin (0.2-1.3) mg/dL AST (14-36) U/L ALT (7-56) U/L Alkaline Phosphatase (38-126) U/L Total Protein (5.8-8.3) g/dL Albumin (3.0-4.8) g/dL Globulin gm/dL Albumin/Globulin Ratio (1.1-1.8) Urine Color (YELLOW) Urine Appearance (CLEAR) Urine pH (4.7-8.0) Ur Specific [place] (1.005-1.035) Urine Protein (<30 mg/dL) mg/dL Urine Glucose (UA) (NEGATIVE) mg/dL Urine Ketones (NEGATIVE) mg/dL Urine Blood (NEGATIVE) Urine Nitrate (NEGATIVE) Urine Bilirubin (NEGATIVE) Urine Urobilinogen (<1 E.U./dL) E.U./dL Ur Leukocyte Esterase (NEGATIVE) Miguel/uL Urine RBC (0-2) /hpf Urine WBC (0-6) /hpf Ur Epithelial Cells (0-5) /hpf Urine Bacteria (NEG) Blood Type O POSITIVE O POSITIVE Antibody Screen Negative Negative Crossmatch See Detail BBK History Checked Patient has bt Patient has bt Laboratory Results - last 24 hr 12/08/17 12/08/17 12/08/17 02:15 02:15 22:20 WBC 10.5 RBC 2.81 L Hgb 8.5 L Hct 25.0 L MCV 89.0 MCH 30.2 MCHC 34.0 RDW 15.8 H Plt Count 353 MPV 9.6 Gran % 69.7 H Lymph % (Auto) 13.1 L [place] % (Auto) 14.1 H Eos % (Auto) 3.1 Baso % (Auto) 0.0 Gran # 7.30 H Lymph # (Auto) 1.4 [place] # (Auto) 1.5 H Eos # (Auto) 0.3 Baso # (Auto) 0.00 Sodium Potassium Chloride Carbon Dioxide Anion Gap BUN Creatinine Est GFR ( Amer) Est GFR (Non-Af Amer) Random Glucose Calcium Total Bilirubin AST ALT Alkaline Phosphatase Total Protein Albumin Globulin Albumin/Globulin Ratio Urine Color Urine Appearance Urine pH Ur Specific [place] Urine Protein Urine Glucose (UA) Urine Ketones Urine Blood Urine Nitrate Urine Bilirubin Urine Urobilinogen Ur Leukocyte Esterase Urine RBC Urine WBC Ur Epithelial Cells Urine Bacteria Blood Type O POSITIVE O POSITIVE Antibody Screen Negative Negative Crossmatch See Detail BBK History Checked Patient has bt Patient has bt 12/09/17 12/09/17 12/09/17 05:40 06:00 08:26 WBC 10.4 RBC 2.93 L Hgb 8.8 L Hct 26.2 L MCV 89.4 MCH 30.0 MCHC 33.6 RDW 15.8 H Plt Count 386 MPV 10.0 Gran % 66.8 Lymph % (Auto) 14.1 L [place] % (Auto) 15.2 H Eos % (Auto) 3.8 Baso % (Auto) 0.1 Gran # 6.95 H Lymph # (Auto) 1.5 [place] # (Auto) 1.6 H Eos # (Auto) 0.4 Baso # (Auto) 0.01 Sodium 141 Potassium 3.6 Chloride 107 Carbon Dioxide 28 Anion Gap 10 BUN 13 Creatinine 0.8 Est GFR ( Amer) > 60 Est GFR (Non-Af Amer) > 60 Random Glucose 106 Calcium 8.5 Total Bilirubin 0.2 AST 25 ALT 26 Alkaline Phosphatase 64 Total Protein 5.7 L Albumin 3.1 Globulin 2.7 Albumin/Globulin Ratio 1.1 Urine Color Yellow Urine Appearance Clear Urine pH 6.0 Ur Specific [place] 1.015 Urine Protein Negative Urine Glucose (UA) Negative Urine Ketones Negative Urine Blood Large H Urine Nitrate Negative Urine Bilirubin Negative Urine Urobilinogen 0.2 Ur Leukocyte Esterase Trace H Urine RBC 1 - 3 Urine WBC 0 - 2 Ur Epithelial Cells 4 - 5 Urine Bacteria Trace Blood Type Antibody Screen Crossmatch BBK History Checked Assessment/Plan - Assessment and Plan (Free Text) Assessment: Patient seen and examined, on rounds with resident, agree with note with following additions/exceptions: Patient is 62yo female with PMHX of A-Fib on Eliquis and Gastritis with [place] 3 non-bleeding gastric ulcer, MV repair s/p MVR bioprosthetic, CAD, and COPD. was transferred from TCU on 12/06 for UGIB. Given 2u pRBC, and 1u FFP. Currently afebrile, HD stable, comfortable in NAD, doing well. Hgb has been stable, not requiring transfusions over last 24h. Pt denies any major complaints. Gi following, not immediate for EGD. UGIB Afib Gastritis CAD COPD Recommend: - supp o2 as needed - follow up ID, regarding + UCx - BP control - PPI drip - NPO - follow up GI - Hold Eliquis, ASA for now - Lopressor BID - GI ppx - DVT ppx - STABLE, transfer to telemetry
--- NOTE | 2017-12-09 16:22 | CP.PCM.PN ---
Subjective - Date & Time of Evaluation Date of Evaluation: 12/09/17 Time of Evaluation: 16:00 - Subjective Subjective: Merrem Iv ordered as per PMD, Dr. Guerra, for UTI with pos Klebsiella,to maintain until seen by Infectious Disease doctor, consult entered and Dr. Floerz notified of Urine cx results. Objective - Vital Signs/Intake and Output Vital Signs (last 24 hours): Temp Pulse Resp BP Pulse Ox 97.5 F L 79 20 144/85 91 L 12/09/17 05:06 12/09/17 13:02 12/09/17 13:02 12/09/17 13:02 12/09/17 13:02 Intake and Output: 12/09/17 12/09/17 06:59 18:59 Intake Total 1763 Output Total 300 Balance 1463 - Medications Medications: Current Medications Albuterol/Ipratropium (Duoneb 3 Mg/0.5 Mg (3 Ml) Ud) 3 ml IH [id number] PRN PRN Reason: Shortness of Breath Arformoterol Tartrate (Brovana) 15 mcg IH [id number] [facility] Budesonide (Pulmicort Respules) 0.25 mg IH [id number] GUAL[facility]ERTO Diltiazem HCl (Cardizem) 5 mg IVP Q6 PRN PRN Reason: Heart rate Diltiazem HCl (Cardizem Cd) 120 mg PO DAILY [facility] Sodium Chloride (Sodium Chloride 0.9%) 1,000 mls @ 100 mls/hr IV .Q10H [facility] Last Admin: 12/09/17 16:05 Dose: Not Given Pantoprazole Sodium (Protonix 40mg Ivpb) 40 mg in 100 mls @ 20 mls/hr IVPB .Q5H [facility] Last Admin: 12/09/17 15:01 Dose: Not Given Meropenem 500 mg/ Sodium (Chloride) 50 mls @ 100 mls/hr IVPB Q12 GUALBERTO PRN Reason: Protocol Stop: 12/09/17 22:29 Levalbuterol HCl (Xopenex) 1.25 mg IH [id number] PRN PRN Reason: Shortness of Breath Metoprolol Tartrate (Lopressor) 25 mg PO BID [facility] Last Admin: 12/09/17 09:29 Dose: 25 mg - Labs Labs: 12/09/17 05:40 12/09/17 06:00 PT 31.9 SECONDS (9.4-12.5) H 12/08/17 12:55 INR 2.72 (0.93-1.08) H 12/08/17 12:55 APTT 34.7 Seconds (25.1-36.5) 12/08/17 02:15
[2017-12-09 17:13] LABS: BASO # 0.01 K/mm3 (0.0-2.0); BASO % 0.1 % (0.0-3.0); EOS # 0.5 (0.0-0.7); EOS % 3.9 % (1.5-5.0); GRAN # 9.88 (1.4-6.5); GRAN % 73.1 % (50.0-68.0); HEMOGLOBIN 9.3 g/dL (12.0-16.0); LYMPH # 2.4 (1.2-3.4); LYMPH % 17.7 % (22.0-35.0); MEAN CELL VOLUME 90.9 fl (80.0-105.0); MEAN CORPUSCULAR HEMOGLOBIN 30.3 pg (25.0-35.0); MEAN CORPUSCULAR HGB CONC 33.3 g/dl (31.0-37.0); MEAN PLATELET VOLUME 9.7 fl (7.0-11.0); MONO # 0.7 (0.1-0.6); MONO % 5.2 % (1.0-6.0); RBC 3.07 10^6/uL (3.5-6.1); WHITE BLOOD COUNT 13.5 10^3/ul (4.5-11.0)
[2017-12-09] MEDS: Arformoterol 15 mcg/2 ml Inh Sol IH SCH (20:22)
[2017-12-09] MEDS: Budesonide 0.25 mg/2 ml Inhal Susp UD IH SCH (20:22)
[2017-12-09] MEDS ORDERED: Meropenem 500 MG in Sodium Chloride 0.9% 50 ML IVPB SCH (22:00)
[2017-12-10 00:49] LABS: BASO # 0.01 K/mm3 (0.0-2.0); BASO % 0.1 % (0.0-3.0); EOS # 0.4 (0.0-0.7); EOS % 3.7 % (1.5-5.0); GRAN # 8.4 (1.4-6.5); GRAN % 69.8 % (50.0-68.0); HEMOGLOBIN 9.1 g/dL (12.0-16.0); LYMPH # 1.2 (1.2-3.4); LYMPH % 10.1 % (22.0-35.0); MEAN CELL VOLUME 90.4 fl (80.0-105.0); MEAN CORPUSCULAR HEMOGLOBIN 30.1 pg (25.0-35.0); MEAN CORPUSCULAR HGB CONC 33.3 g/dl (31.0-37.0); MEAN PLATELET VOLUME 9.6 fl (7.0-11.0); MONO % 16.3 % (1.0-6.0); RBC 3.02 10^6/uL (3.5-6.1)
--- NOTE | 2017-12-10 01:16 | CON ---
DATE: 12/09/2017 CARDIOLOGY CONSULTATION REASON FOR THE CONSULTATION: Cardiac evaluation, recurrent GI bleed, paroxysmal atrial fibrillation on anticoagulation, history of mitral valve replacement bioprosthetic, nonobstructive coronary artery disease. BRIEF CLINICAL HISTORY: This is a 62-year-old female with past medical history significant for MVP, severe mitral regurgitation who has been consulting for more than 2 years for valve replacement, ultimately patient agreed, had a cardiac catheterization prior with nonobstructive coronary disease. Then patient had a chest pain just before open heart surgery; so had another cardiac catheterization that revealed nonischemic coronary artery disease. She had history of paroxysmal atrial fibrillation, patient was started on anticoagulation and recently admitted with GI bleed with ulcer. So patient underwent endoscopy and found to be no clot but found to be ulcer. So after a week, patient was started on heparin and then started Coumadin; but the patient had black tarry stool and drop in hemoglobin, so was transferred to ICU. Denies any chest pain, short of breath, or any palpitation. PAST MEDICAL HISTORY: Significant for mitral valve severe prolapse, paroxysmal atrial fibrillation, severe mitral regurgitation, status post cardiac catheterization twice, nonobstructive coronary artery disease, history of mitral valve replacement with bioprosthetic valve in 04/2017, hypertension, noncompliance with medication. PAST SURGICAL HISTORY: Significant for cholecystectomy; carpal tunnel syndrome; bunionectomy, removal of bunion from the toe and foot, and most recently patient had MVR bioprosthetic done at [facility] in 04/2017; history of cardiac catheterization twice two years ago for the valve. The patient on last followup did not want surgery. Recently patient had been referred to [facility] with the patient developing chest pain, and again, cardiac catheterization done on 04/23/2017 found to be nonobstructive coronary artery disease; multiple admissions with paroxysmal atrial fibrillation and now admission with GI bleed. Patient was at transitional care unit where the patient was started on heparin and then switched over to Coumadin because ; but the patient bled, and was transferred to ICU. CURRENT MEDICATIONS: Patient is taking in transitional care unit simvastatin 20 mg daily, Singulair 10 mg, metoprolol 25 b.i.d., magnesium, furosemide, Cardizem, aspirin and Coumadin. Prior to that, patient was taking Eliquis at home. REVIEW OF SYSTEMS: As per HPI. PHYSICAL EXAMINATION: As follows; VITAL SIGNS: Temperature afebrile, heart rate 78 and blood pressure 144/85. HEENT: PERRLA. Extraocular muscles intact. NECK: Supple. No carotid bruit. No thyromegaly. CHEST: Clear to auscultation. HEART: S1 and S2 regular. ABDOMEN: Soft. EXTREMITIES: Clubbing and cyanosis negative. LABORATORY DATA: Blood workup as follows; WBC of 10.4, hemoglobin 8.8, hematocrit 26.2, platelet count 386. Yesterday hemoglobin dropped to 7, status post packed RBC transfusion. Chemistry shows sodium 141, potassium 3.7, chloride 106, carbon dioxide of 28, anion gap of 10, BUN 13, creatinine 0.8. Total protein 5, albumin 3.1. IMPRESSION: Recurrent gastrointestinal bleed, multiple attempt made with patient gastrointestinal bleed, history of gastric ulcer, status post endoscopy, non active bleeding, multiple attempts had been made for anticoagulation because of paroxysmal atrial fibrillation, history of mitral valve replacement with bioprosthetic because of severe mitral regurgitation and mitral valve prolapse, hypertension, history of paroxysmal atrial fibrillation. RECOMMENDATION: Continue beta jasmyn. Continue Cardizem, not a candidate for long-term anticoagulation because patient had multiple attempts done, and patient bleeds. So keep off anticoagulation. INR was 2.72. Monitor H and H. We will give 5 mg of vitamin K. Monitor H and H closely. Discussed in length with the patient. The patient seems to bled multiple times, not a candidate for anticoagulation. We will follow with you. If the vital signs remain stable, we will start Cardizem-CD 120 mg from tomorrow. Thank you Dr. Guerra for providing us the opportunity in taking care of the patient, Dariana Mcgregor. Brittany Beebe MD
--- NOTE | 2017-12-10 04:14 | PN ---
DATE: 12/09/2017 SUBJECTIVE: Patient is seen today. Patient is stable. No chest pain. No short of breath. She is supposedly going for an endoscopy by Dr. Ramirez, this will be discussed. Patient otherwise stable. PHYSICAL EXAMINATION: GENERAL: Her temperature 98, heart rate 95, blood pressure 166/93, respirations 16, saturating 94% on room air. HEENT: Head and neck exam normal. NECK: No JVD. No thyromegaly. CHEST: Clear bilaterally. CARDIAC: First sounds and second sounds normal. ABDOMEN: Soft, nontender. EXTREMITIES: No edema. SCDs on. NEUROLOGIC: Normal. LABORATORY DATA: White count 10.4, hemoglobin 8.8, hematocrit 26.2, platelets 386. Chemistry: Sodium 141, potassium 3.6, chloride 107, bicarb 28, BUN 15, creatinine 0.8. IMPRESSION: 1. Acute upper GI bleeding, recurrent peptic ulcer bleeding, status post transfusion 2 units of fresh frozen plasma and 3 units of packed red blood cells. Hemoglobin is better. Repeat hemoglobin is up and earlier hemoglobin 8.8 and repeat at 6 p.m. was 9.3. We will continue monitor hemoglobin and hematocrit. Patient may go for endoscopy later today or in the morning by Dr. Ramirez. 2. Paroxysmal atrial fibrillation, continue Cartia XT 120 and metoprolol 25 b.i.d. 3. Hypertension. Continue current medication, metoprolol and Cartia XT and monitor her condition and blood pressure in the unit. 4. Urinary tract infections, we will give meropenem, ID consult with Dr. Valenzuela. Continue current therapy. Repeat lab in the morning, CBC and PT/INR. Baltazar Guerra MD
--- NOTE | 2017-12-10 05:38 | CON ---
DATE: 12/09/2017 REFERRING PHYSICIAN: Renu Currie MD REASON FOR CONSULTATION: Chronic obstructive lung disease, may have sleep apnea syndrome, admitted with GI bleed. HISTORY OF PRESENT ILLNESS: This is a 62-year-old female known to me from office with atrial fibrillation on anticoagulation, history of mitral valve repair, coronary artery disease, chronic obstructive lung disease, came in to ER 2-3 days ago with rectal bleed. Hemoglobin was found to be 7.7 and was coagulopathic with INR of 4.0. She was symptomatic with lightheadedness with black tarry stools. She received FFP, and packed cells were given, admitted to intensive care unit. On previous admission she had a gastric ulcer, recently treated for ESBL pneumonia. She was supposed to get attended sleep study, PFT as outpatient, but ended up in hospital with GI bleed. Presently she feels okay. Mild cough. No shortness breath, no chest pain, no dysuria. Past medical history as per history of present illness. Also has paroxysmal atrial fibrillation, been on anticoagulation. FAMILY HISTORY: Positive for coronary artery disease. SOCIAL HISTORY: Nonsmoker, nondrinker. ALLERGIES: TO [place]INNA[place]. MEDICATIONS: She is on Brovana inhaled twice a day, Cardizem 5 mg q.6h. p.r.n., diltiazem 120 mg daily, DuoNeb q.6h. p.r.n., metoprolol tartrate 25 mg twice a day, meropenem 500 mg q.12h., Protonix 40 mg daily, Pulmicort inhaled twice a day, Xopenex inhale q. 6 hours p.r.n. REVIEW OF SYSTEMS: No headache, no rhinitis. No cough. Gets short of breath with minimal exertion. No chest pain. No nausea, no vomiting, no diarrhea. No more melena. No significant leg swelling. PHYSICAL EXAMINATION: GENERAL: Lying in the bed, in no acute distress. VITAL SIGNS: Temperature is 98, heart rate is 95, respiratory rate is 20, blood pressure 138/56, pulse ox 91% room air. HEENT: Moist mucous membrane. Crowded airway. Mallampati score is 4. NECK: Supple. No JVD. LUNGS: Has fair airflow with rhonchi. HEART: S1, S2. ABDOMEN: Soft, nontender, no organomegaly. EXTREMITIES: No edema. NEUROLOGIC: Awake, alert; follows simple commands. LABORATORY DATA: Shows hemoglobin 9.3, hematocrit 27.9, WBC 13.5, platelet count is 395. INR 2.72 from yesterday. Sodium 141, potassium 3.6, chloride 107, bicarbonate 28, BUN 13, creatinine 0.8, glucose 106, calcium 8.5, AST 25, ALT 26, alk phos is 64. Albumin 3.1. Urinalysis shows wbc 0-2, rbc 1-3. Microbiology: Nasal MRSA is nondetected. IMPRESSION AND PLAN: Gastrointestinal bleed with anemia requiring transfusion, FFP and reversal of coagulopathy; history of upper gastrointestinal bleed, atrial fibrillation, coronary artery disease, chronic obstructive lung disease, suspected sleep apnea syndrome. We will continue bronchodilator. Keep head at 45 degrees. Sleep apnea precaution, especially if sedated. Gastroenterology followup. Follow up labs the morning. Thank you and we will follow with you. Brittany Arciniega MD
[2017-12-10] MEDS: Pantoprazole 40mg/100mL NS 40 MG/100 ML BAG IVPB SCH (06:55)
[2017-12-10] MEDS: Meropenem IV 1 gm in NS 50 ML IVPB SCH ×2 (07:33→22:13)
[2017-12-10] MEDS: Budesonide 0.25 mg/2 ml Inhal Susp UD IH SCH ×2 (07:36→20:40)
[2017-12-10] MEDS: Arformoterol 15 mcg/2 ml Inh Sol IH SCH ×2 (07:36→20:40)
[2017-12-10 08:01] LABS: ALB/GLOB RATIO 1.2 (1.1-1.8); ALBUMIN 3.1 g/dL (3.0-4.8); ALT/SGPT 28 U/L (7-56); AST/SGOT 19 U/L (14-36); BLOOD UREA NITROGEN 7 mg/dL (7-21); CALCIUM 8.7 mg/dL (8.4-10.5); GFR AFRICAN-AMERICAN > 60; GFR NON-AFRICAN AMERICAN > 60
[2017-12-10 08:03] LABS: INR 1.57 (0.93-1.08); PROTHROMBIN TIME 18.2 SECONDS (9.4-12.5)
--- NOTE | 2017-12-10 08:09 | CP.PCM.CON ---
History of Present Illness - History of Present Illness History of Present Illness: Heme-Onc Consult note for Dr. Jimenez Reason for consult: coagulopathy and bleeding 62yo female PMHx A-fib on coumadin, mitral valve repair (severe mitral regurgitation s/p open heart surgery and repair with MVR biprosthetic), CAD, COPD was transferred from TCU to MICU for rectal bleed on 12/07. Patient report dark tarry stool with assoicated lightheadedness. She was found to have supratherapeutic INR 4.14 and Hgb 7.7. Patient was given pRBC, FFP, protonix and transferred to the MICU. During hospital stay patient clinically improved. Patient seen and examined at bedside this AM. Nursing reported no acute events overnight. Patient transferred from MICU to TELE this AM. SHe denied acute complaints of fever, chills, headache, dizziness, chest pain, palpitations, SOB , cough, abd pain, nausea, vomiting, bowel/bladder complaints, melena, hematochezia, hematuria, pain/swelling in her legs bilaterally. Patient was concerned her IV was infiltrated because her RUE was sore. PMHx: A-fib on coumadin, mitral valve repair (severe mitral regurgitation s/p open heart surgery and repair with MVR biprosthetic), CAD, COPD PSurgHx: open heart surgery, carpal tunnel, bunion, cholecystectomy. FamHx: heart disease SocHx: denies EtOH, tobacco, drug use. ALL: cinnamon Meds: pls see EMR PMD: Charlie GI: James Review of Systems - Review of Systems All systems: reviewed and no additional remarkable complaints except Review of Systems: as per HPI Past Patient History - Infectious Disease Hx of Infectious Diseases: None - Tetanus Immunizations Tetanus Immunization: Unknown - Past Social History Smoking Status: Never Smoked - CARDIAC Hx Cardiac Disorders: Yes (Mitral Valve Repair.) Hx Angina: Yes Hx Cardia Arrhythmia: Yes (Atrial Fibrillation.) Hx Congestive Heart Failure: Yes Hx Heart Murmur: Yes Hx Hypercholesterolemia: Yes Hx Hypertension: Yes Hx Mitral Valve Prolapse: Yes Hx Peripheral Edema: Yes Hx Peripheral Vascular Disease: Yes - PULMONARY Hx Respiratory Disorders: Yes Hx Asthma: Yes Hx Chronic Obstructive Pulmonary Disease (COPD): Yes Hx Pneumonia: Yes - NEUROLOGICAL Hx Neurological Disorder: Yes Hx Dizziness: Yes Hx Migraine: Yes - HEENT Hx HEENT Problems: No - RENAL Hx Chronic Kidney Disease: No - ENDOCRINE/METABOLIC Hx Endocrine Disorders: No - HEMATOLOGICAL/ONCOLOGICAL Hx Blood Disorders: Yes (H/o blood transfusions.) Hx Anemia: Yes - INTEGUMENTARY Hx Dermatological Problems: No - MUSCULOSKELETAL/RHEUMATOLOGICAL Hx Falls: Yes - GASTROINTESTINAL Hx Gastrointestinal Disorders: Yes (H/o Hematemesis. GI Bleeding. Melena) Hx Gall Bladder Disease: Yes (Cholelithiasis. Cholecystectomy.) - GENITOURINARY/GYNECOLOGICAL Hx Genitourinary Disorders: Yes Hx Urinary Tract Infection: Yes - PSYCHIATRIC Hx Substance Use: No (Denied by pt.) - SURGICAL HISTORY Hx Surgeries: Yes Hx Cardiac Catheterization: Yes Hx Cholecystectomy: Yes Hx Open Heart Surgery: Yes (Mitral Valve Repair.) Hx Orthopedic Surgery: Yes (B/L Bunion Sx; Left Carpal Tunnel Sx.) - ANESTHESIA Hx Anesthesia: No Hx Anesthesia Reactions: No Hx Malignant Hyperthermia: No Meds Allergies/Adverse Reactions: Allergies Allergy/AdvReac Type Severity Reaction Status Date / Time cinnamon Allergy Intermediate ANAPHYLAXIS Verified 12/07/17 21:48 - Medications Medications: Current Medications Albuterol/Ipratropium (Duoneb 3 Mg/0.5 Mg (3 Ml) Ud) 3 ml IH [id number] PRN PRN Reason: Shortness of Breath Arformoterol Tartrate (Brovana) 15 mcg IH [id number] [facility] Last Admin: 12/10/17 07:36 Dose: 15 mcg Budesonide (Pulmicort Respules) 0.25 mg IH [id number] [facility] Last Admin: 12/10/17 07:36 Dose: 0.25 mg Diltiazem HCl (Cardizem) 5 mg IVP Q6 PRN PRN Reason: Heart rate Diltiazem HCl (Cardizem Cd) 120 mg PO DAILY [facility] Pantoprazole Sodium (Protonix 40mg Ivpb) 40 mg in 100 mls @ 20 mls/hr IVPB .Q5H [facility] Last Admin: 12/10/17 06:55 Dose: 20 mls/hr Meropenem (Merrem Iv 1 Gm Premix) 50 mls @ 100 mls/hr IVPB Q8 GUALBERTO PRN Reason: Protocol Last Admin: 12/10/17 07:33 Dose: 100 mls/hr Levalbuterol HCl (Xopenex) 1.25 mg IH [id number] PRN PRN Reason: Shortness of Breath Metoprolol Tartrate (Lopressor) 25 mg PO BID [facility] Last Admin: 12/09/17 17:04 Dose: 25 mg Physical Exam - Constitutional Appears: Non-toxic, No Acute Distress - Head Exam Head Exam: ATRAUMATIC, NORMAL INSPECTION, NORMOCEPHALIC - Eye Exam Eye Exam: EOMI, Normal appearance, PERRL. absent: Conjunctival injection, Scleral icterus - ENT Exam ENT Exam: Mucous Membranes Moist - Neck Exam Neck exam: Positive for: Normal Inspection - Respiratory Exam Respiratory Exam: Clear to Auscultation Bilateral, NORMAL BREATHING PATTERN. absent: Accessory Muscle Use, Rales, Rhonchi, Wheezes, Respiratory Distress - Cardiovascular Exam Cardiovascular Exam: +S1, +S2 - GI/Abdominal Exam GI & Abdominal Exam: Normal Bowel Sounds, Soft. absent: Tenderness - Rectal Exam Rectal Exam: Deferred - Extremities Exam Extremities exam: Positive for: normal inspection, pedal pulses present. Negative for: pedal edema - Neurological Exam Neurological exam: Alert, CN II-XII Intact, Oriented x3 - Psychiatric Exam Psychiatric exam: Normal Affect, Normal Mood - Skin Skin Exam: Dry, Intact, Normal Color, Warm Results - Vital Signs Recent Vital Signs: Last Vital Signs Temp 99.9 F H 12/09/17 22:00 Pulse 108 H 12/10/17 07:00 Resp 18 12/10/17 07:00 BP 140/61 12/09/17 23:00 Pulse Ox 91 L 12/09/17 22:00 - Labs Result Diagrams: 12/10/17 08:45 12/10/17 07:00 Labs: Laboratory Results - last 24 hr 12/09/17 12/09/17 12/09/17 06:00 08:26 17:00 WBC 13.5 H D RBC 3.07 L Hgb 9.3 L Hct 27.9 L MCV 90.9 MCH 30.3 MCHC 33.3 RDW 16.0 H Plt Count 395 MPV 9.7 Gran % 73.1 H Lymph % (Auto) 17.7 L Todd % (Auto) 5.2 Eos % (Auto) 3.9 Baso % (Auto) 0.1 Gran # 9.88 H Lymph # (Auto) 2.4 Todd # (Auto) 0.7 H Eos # (Auto) 0.5 Baso # (Auto) 0.01 PT INR Sodium 141 Potassium 3.6 Chloride 107 Carbon Dioxide 28 Anion Gap 10 BUN 13 Creatinine 0.8 Est GFR ( Amer) > 60 Est GFR (Non-Af Amer) > 60 Random Glucose 106 Calcium 8.5 Total Bilirubin 0.2 AST 25 ALT 26 Alkaline Phosphatase 64 Total Protein 5.7 L Albumin 3.1 Globulin 2.7 Albumin/Globulin Ratio 1.1 Urine Color Yellow Urine Appearance Clear Urine pH 6.0 Ur Specific [place] 1.015 Urine Protein Negative Urine Glucose (UA) Negative Urine Ketones Negative Urine Blood Large H Urine Nitrate Negative Urine Bilirubin Negative Urine Urobilinogen 0.2 Ur Leukocyte Esterase Trace H Urine RBC 1 - 3 Urine WBC 0 - 2 Ur Epithelial Cells 4 - 5 Urine Bacteria Trace 12/10/17 12/10/17 12/10/17 00:25 07:00 07:00 WBC 12.0 H RBC 3.02 L Hgb 9.1 L Hct 27.3 L MCV 90.4 MCH 30.1 MCHC 33.3 RDW 16.0 H Plt Count 374 MPV 9.6 Gran % 69.8 H Lymph % (Auto) 10.1 L Todd % (Auto) 16.3 H Eos % (Auto) 3.7 Baso % (Auto) 0.1 Gran # 8.40 H Lymph # (Auto) 1.2 Todd # (Auto) 2.0 H Eos # (Auto) 0.4 Baso # (Auto) 0.01 PT 18.2 H INR 1.57 H Sodium 140 Potassium 3.5 L Chloride 104 Carbon Dioxide 28 Anion Gap 11 BUN 7 Creatinine 0.8 Est GFR ( Amer) > 60 Est GFR (Non-Af Amer) > 60 Random Glucose 104 Calcium 8.7 Total Bilirubin 0.3 AST 19 ALT 28 Alkaline Phosphatase 71 Total Protein 5.9 Albumin 3.1 Globulin 2.7 Albumin/Globulin Ratio 1.2 Urine Color Urine Appearance Urine pH Ur Specific [place] Urine Protein Urine Glucose (UA) Urine Ketones Urine Blood Urine Nitrate Urine Bilirubin Urine Urobilinogen Ur Leukocyte Esterase Urine RBC Urine WBC Ur Epithelial Cells Urine Bacteria Assessment & Plan - Assessment and Plan (Free Text) Assessment: 62yo female PMHx A-fib on coumadin, mitral valve repair (severe mitral regurgitation s/p open heart surgery and repair with MVR biprosthetic), CAD, COPD was transferred from TCU to MICU for rectal bleed on 12/07. Patient is s/p 2U PRBC, 1U FFP. Patient currently transferred to TELE. INR 1.57 this AM and Hgb 9 Hct 27.2. Anticoag on hold. Gi Dr. Ramirez on board- appreciate reccs. Cardio Dr. Beebe on board- appreciate reccs. Continue management as per primary. Discussed with Dr. Tony Cedillo PGY2
[2017-12-10] MEDS ORDERED: Potassium Chloride 20 mEq ER Tab PO ONE (08:13)
[2017-12-10] MEDS ORDERED: Propofol 10 mg/ml Inj (20 ML) ONE (08:20)
[2017-12-10 08:35] VITALS: O2SAT 99
[2017-12-10] MEDS ORDERED: Etomidate 20 mg/10ml Inj IV ONE (08:37)
[2017-12-10 09:10] LABS: BASO # 0.01 K/mm3 (0.0-2.0); BASO % 0.1 % (0.0-3.0); EOS # 0.5 (0.0-0.7); EOS % 3.7 % (1.5-5.0); GRAN # 9.93 (1.4-6.5); GRAN % 72.5 % (50.0-68.0); LYMPH # 1.2 (1.2-3.4); LYMPH % 8.6 % (22.0-35.0); MEAN CELL VOLUME 91.3 fl (80.0-105.0); MEAN CORPUSCULAR HEMOGLOBIN 30.2 pg (25.0-35.0); MEAN CORPUSCULAR HGB CONC 33.1 g/dl (31.0-37.0); MONO # 2.1 (0.1-0.6); MONO % 15.1 % (1.0-6.0); RBC 2.98 10^6/uL (3.5-6.1); RED CELL DISTRIBUTION WIDTH 16.1 % (11.5-14.5); WHITE BLOOD COUNT 13.7 10^3/ul (4.5-11.0)
[2017-12-10] MEDS: diltiaZEM 120 mg/24 Hours CD Cap PO SCH (09:43)
[2017-12-10] MEDS ORDERED: Metoprolol 1 mg/ml Inj IV PRN (10:40)
[2017-12-10] MEDS ORDERED: Morphine 4 mg/ml ISec IVP STA (12:02)
--- NOTE | 2017-12-10 12:12 | CP.PCM.CON ---
History of Present Illness - History of Present Illness History of Present Illness: 62 year old female with PMH of atrial fibrillation, asthma, HTN, severe mitral regurgitation S/P mitral valve replacement, esophageal ulcers, carpal tunnel syndrome, COPD, dyslipidemia, S/P cholecystectomy, S/P foot surgery initially came in to [facility] because of GI bleeding. She did better and then transferred to [facility] but she then developed GI bleeding again and is now transferred back to the acute care portion of the hospital. She had also had LBM which initially was though to be C. diff. but is now off treatment for this. She also had asymptomatic bacteriuria but on this transfer she continues to have bacteria in the urine and has slight suprapubic pain. She denies fever or chills, no nausea or vomiting, no chest pain, no SOB, no cough or rhinorrhea, no abdominal pain, no flank pain, no headache or dizziness. Infectious diseases consult is requested to further evaluate and manage. Review of Systems - Review of Systems All systems: reviewed and no additional remarkable complaints except (as per HPI ) Past Patient History - Infectious Disease Hx of Infectious Diseases: None - Tetanus Immunizations Tetanus Immunization: Unknown - Past Social History Smoking Status: Never Smoked - CARDIAC Hx Cardiac Disorders: Yes (Mitral Valve Repair.) Hx Angina: Yes Hx Cardia Arrhythmia: Yes (Atrial Fibrillation.) Hx Congestive Heart Failure: Yes Hx Heart Murmur: Yes Hx Hypercholesterolemia: Yes Hx Hypertension: Yes Hx Mitral Valve Prolapse: Yes Hx Peripheral Edema: Yes Hx Peripheral Vascular Disease: Yes - PULMONARY Hx Respiratory Disorders: Yes Hx Asthma: Yes Hx Chronic Obstructive Pulmonary Disease (COPD): Yes Hx Pneumonia: Yes - NEUROLOGICAL Hx Neurological Disorder: Yes Hx Dizziness: Yes Hx Migraine: Yes - HEENT Hx HEENT Problems: No - RENAL Hx Chronic Kidney Disease: No - ENDOCRINE/METABOLIC Hx Endocrine Disorders: No - HEMATOLOGICAL/ONCOLOGICAL Hx Blood Disorders: Yes (H/o blood transfusions.) Hx Anemia: Yes - INTEGUMENTARY Hx Dermatological Problems: No - MUSCULOSKELETAL/RHEUMATOLOGICAL Hx Falls: Yes - GASTROINTESTINAL Hx Gastrointestinal Disorders: Yes (H/o Hematemesis. GI Bleeding. Melena) Hx Gall Bladder Disease: Yes (Cholelithiasis. Cholecystectomy.) - GENITOURINARY/GYNECOLOGICAL Hx Genitourinary Disorders: Yes Hx Urinary Tract Infection: Yes - PSYCHIATRIC Hx Substance Use: No (Denied by pt.) - SURGICAL HISTORY Hx Surgeries: Yes Hx Cardiac Catheterization: Yes Hx Cholecystectomy: Yes Hx Open Heart Surgery: Yes (Mitral Valve Repair.) Hx Orthopedic Surgery: Yes (B/L Bunion Sx; Left Carpal Tunnel Sx.) - ANESTHESIA Hx Anesthesia: No Hx Anesthesia Reactions: No Hx Malignant Hyperthermia: No Meds Allergies/Adverse Reactions: Allergies Allergy/AdvReac Type Severity Reaction Status Date / Time cinnamon Allergy Intermediate ANAPHYLAXIS Verified 12/07/17 21:48 - Medications Medications: Current Medications Albuterol/Ipratropium (Duoneb 3 Mg/0.5 Mg (3 Ml) Ud) 3 ml IH [id number] PRN PRN Reason: Shortness of Breath Arformoterol Tartrate (Brovana) 15 mcg IH [id number] [facility] Last Admin: 12/09/17 20:22 Dose: 15 mcg Budesonide (Pulmicort Respules) 0.25 mg IH [id number] [facility] Last Admin: 12/09/17 20:22 Dose: 0.25 mg Diltiazem HCl (Cardizem) 5 mg IVP Q6 PRN PRN Reason: Heart rate Diltiazem HCl (Cardizem Cd) 120 mg PO DAILY [facility] Pantoprazole Sodium (Protonix 40mg Ivpb) 40 mg in 100 mls @ 20 mls/hr IVPB .Q5H [facility] Last Admin: 12/09/17 18:13 Dose: 20 mls/hr Levalbuterol HCl (Xopenex) 1.25 mg IH [id number] PRN PRN Reason: Shortness of Breath Metoprolol Tartrate (Lopressor) 25 mg PO BID [facility] Last Admin: 12/09/17 17:04 Dose: 25 mg Physical Exam - Constitutional Appears: Non-toxic, Chronically Ill - Head Exam Head Exam: NORMAL INSPECTION - ENT Exam ENT Exam: Mucous Membranes Moist - Neck Exam Neck exam: Negative for: Lymphadenopathy, Meningismus - Respiratory Exam Respiratory Exam: Decreased Breath Sounds - Cardiovascular Exam Cardiovascular Exam: +S1, +S2 - GI/Abdominal Exam GI & Abdominal Exam: Soft. absent: Tenderness Results - Vital Signs Recent Vital Signs: Last Vital Signs Temp 97.5 F L 12/09/17 05:06 Pulse 80 12/09/17 20:23 Resp 16 12/09/17 20:11 BP 166/93 H 12/09/17 20:00 Pulse Ox 94 L 12/09/17 20:00 - Labs Result Diagrams: 12/10/17 08:45 12/10/17 07:00 Labs: Laboratory Results - last 24 hr 12/09/17 12/09/17 12/09/17 05:40 06:00 08:26 WBC 10.4 RBC 2.93 L Hgb 8.8 L Hct 26.2 L MCV 89.4 MCH 30.0 MCHC 33.6 RDW 15.8 H Plt Count 386 MPV 10.0 Gran % 66.8 Lymph % (Auto) 14.1 L Dane % (Auto) 15.2 H Eos % (Auto) 3.8 Baso % (Auto) 0.1 Gran # 6.95 H Lymph # (Auto) 1.5 Dane # (Auto) 1.6 H Eos # (Auto) 0.4 Baso # (Auto) 0.01 Sodium 141 Potassium 3.6 Chloride 107 Carbon Dioxide 28 Anion Gap 10 BUN 13 Creatinine 0.8 Est GFR ( Amer) > 60 Est GFR (Non-Af Amer) > 60 Random Glucose 106 Calcium 8.5 Total Bilirubin 0.2 AST 25 ALT 26 Alkaline Phosphatase 64 Total Protein 5.7 L Albumin 3.1 Globulin 2.7 Albumin/Globulin Ratio 1.1 Urine Color Yellow Urine Appearance Clear Urine pH 6.0 Ur Specific Keo 1.015 Urine Protein Negative Urine Glucose (UA) Negative Urine Ketones Negative Urine Blood Large H Urine Nitrate Negative Urine Bilirubin Negative Urine Urobilinogen 0.2 Ur Leukocyte Esterase Trace H Urine RBC 1 - 3 Urine WBC 0 - 2 Ur Epithelial Cells 4 - 5 Urine Bacteria Trace 12/09/17 17:00 WBC 13.5 H D RBC 3.07 L Hgb 9.3 L Hct 27.9 L MCV 90.9 MCH 30.3 MCHC 33.3 RDW 16.0 H Plt Count 395 MPV 9.7 Gran % 73.1 H Lymph % (Auto) 17.7 L Dane % (Auto) 5.2 Eos % (Auto) 3.9 Baso % (Auto) 0.1 Gran # 9.88 H Lymph # (Auto) 2.4 Dane # (Auto) 0.7 H Eos # (Auto) 0.5 Baso # (Auto) 0.01 Sodium Potassium Chloride Carbon Dioxide Anion Gap BUN Creatinine Est GFR ( Amer) Est GFR (Non-Af Amer) Random Glucose Calcium Total Bilirubin AST ALT Alkaline Phosphatase Total Protein Albumin Globulin Albumin/Globulin Ratio Urine Color Urine Appearance Urine pH Ur Specific Keo Urine Protein Urine Glucose (UA) Urine Ketones Urine Blood Urine Nitrate Urine Bilirubin Urine Urobilinogen Ur Leukocyte Esterase Urine RBC Urine WBC Ur Epithelial Cells Urine Bacteria Assessment & Plan - Assessment and Plan (Free Text) Plan: Assessment ESBL Klebsiella complicated UTI with Myers catheter GI bleeding chronic CHF severe mitral regurgitation S/P mitral valve replacement atrial fibrillation asthma HTN esophageal ulcers carpal tunnel syndrome COPD dyslipidemia atrial fibrillation S/P cholecystectomy S/P foot surgery Plan started Merrem and would recommend change of Myers catheter - should aim for 5- 7 days of antibiotics follow up further recommendations of GI regarding GI bleeding will monitor clinically
[2017-12-10] MEDS ORDERED: Magnesium 2 gm/50 ml NS 2 GM/50 ML BAG IVPB ONE (14:02)
--- NOTE | 2017-12-10 15:56 | HP ---
REASON FOR ADMISSION: Rectal bleeding. HISTORY OF PRESENT ILLNESS: Patient was seen in TCU, was admitted to ICU and she had rectal bleeding while she was on Coumadin. Patient was transferred to the emergency room for evaluation and from there, she was admitted to ICU medical floor for treatment. Patient does have a large peptic ulcer disease. She had been on heparin, then switched to Coumadin. INR was 3. Patient is not on heparin; however, patient seems stable, was preparing to be discharged. She had a large bowel movement with blood and was admitted to ICU for observation and GI evaluation. She has no other complaint and she was, otherwise, hemodynamically stable. No nausea, no vomiting and was afebrile. PAST MEDICAL HISTORY: As I mentioned here, large peptic ulcer disease, history of noncompliance with medicines, mitral valve replacement with biological valve, which was done originally a year ago, paroxysmal atrial fibrillation, gouty arthritis, chronic back pain, hypertension. ALLERGIES: CINNAMON, OTHERWISE NO KNOWN DRUG ALLERGY. FAMILY HISTORY: Noncontributory. MEDICATIONS: She does take famotidine 40 mg. She takes Protonix 40 p.o. daily, Cartia 120 once a day, vitamin D 50,000 , Symbicort one inhalation twice a day. She was on Coumadin while being discharged, on 3 mg; then, it was stopped. Zocor 20 mg p.o. at bedtime, she was given metoprolol 25 mg b.i.d.,Singulair 10 mg once a day, magnesium oxide 400 mg p.o. daily, Claritin 10 mg once a day and DuoNeb and Xopenex four times a day. REVIEW OF SYSTEMS: As in the present illness, she does have rectal bloody bowel movement, black tarry stool. She also had gouty arthritis, which has been resolved. Otherwise, she does have wheezing, but it is better, resolved, otherwise not significant. PHYSICAL EXAMINATION: VITAL SIGNS: As follows: Temperature 138/82, respirations 24, saturation 100%. HEAD AND NECK: Normal. No JVD. No thyromegaly. CHEST: Clear. Good air entry. CARDIAC: First sound and second sound normal. ABDOMEN: Soft, nontender. EXTREMITIES: No edema. NEUROLOGICAL: Normal. DATA: Laboratory data shows white count 15.1, hemoglobin 7, hematocrit 20.7, platelets 432. She has chemistry, which shows sodium 139, potassium 4.1, chloride 107, bicarbonate 26, BUN 32, creatinine 0.9, blood sugar 151. Liver enzyme was normal. Her PT/INR; last PT was on 12/08, PT 13.9 and INR 2.72. Troponin was negative. IMPRESSION AND PLAN: 1. Acute upper gastrointestinal bleed, recurrent bleeding peptic ulcer, although initially it was not bleeding on initial endoscopy and there is 5% chance of reactivation of bleeding and that would be monitored again. Patient may go for endoscopy again. We will continue to monitor hemoglobin and hematocrit; two units of fresh frozen plasma, two units of packed RBCs. Repeat monitor of hemoglobin and hematocrit and we will keep the patient in the ICU. Continue current therapy, Protonix IV infusion. 2. Chronic paroxysmal atrial fibrillation. Patient seems stable, right now in sinus rhythm. We will continue Cartia 120 plus metoprolol 25 b.i.d. 3. Chronic obstructive pulmonary disease, asthma. Continue nebulizer treatment. Continue current management. Follow up clinically. Baltazar Guerra MD
--- NOTE | 2017-12-10 16:22 | PN ---
DATE: 12/10/2017 REASON FOR CONSULTATION AND FOLLOWUP: Cardiac evaluation; recurrent GI bleed; paroxysmal atrial fibrillation, on anticoagulation; history of mitral valve replacement, bioprosthetic; nonobstructive coronary artery disease. SUBJECTIVE: The patient denies any chest pain, shortness of breath or any palpitations, coming back from Endoscopy. OBJECTIVE: GENERAL: Not in apparent distress. VITAL SIGNS: Temperature afebrile, heart rate 111, blood pressure 134/62. HEENT: PERRLA. Extraocular muscles intact. NECK: Supple. No carotid bruit or thyromegaly. CHEST: Clear to auscultation. HEART: S1, S2 regular. ABDOMEN: Soft. EXTREMITIES: Clubbing and cyanosis negative. LABORATORY DATA: Blood workup as follows: WBC 13, hemoglobin 9, hematocrit 27.2, platelet count 394. Chemistry shows sodium 140, potassium 3.5, chloride 104, carbon dioxide 20, anion gap of 11, BUN 7, creatinine 0.8. IMPRESSION: Recurrent gastrointestinal bleed. The patient was in Transitional Care Unit, on anticoagulation; had gastrointestinal bleed, hemoglobin dropped to 7, on anticoagulation. INR went to 3.96, vitamin K was given yesterday, now INR is 1.5. The patient underwent re-endoscopy, no active bleeding, but a large antral ulcer noted. History of mitral valve replacement, bioprosthetic, nonobstructive coronary artery disease. Cardiac catheterization in 2017 before the open heart surgery, history of paroxysmal atrial fibrillation. RECOMMENDATIONS: We will control the heart rate. Continue Cardizem, continue beta jasmyn. We will give IV p.r.n. if the patient remains n.p.o. and for now, we will not give any anticoagulation; if the patient recurs into AFib, consider electrophysiological study ablation or WATCHMAN placement to prevent a stroke. Discussed with the patient, we will discuss with Dr. Guerra. The patient bled multiple times and on anticoagulation. So, as mentioned, we will not start re-anticoagulation. We will give 5 mg every 6 hours p.r.n. for heart rate more than Thank you, Dr. Guerra, for providing us the opportunity in taking care of Dariana Mcgregor. Brittany Beebe MD [facility] # [id number]
[2017-12-10] MEDS: Pantoprazole 40 mg EC Tab PO SCH (16:25)
[2017-12-10] MEDS: Oxycodone/Acetaminophen 5/325 mg Tab PO PRN ×2 (16:26→22:23)
--- NOTE | 2017-12-11 03:27 | PN ---
DATE: 12/10/2017 PULMONARY PROGRESS NOTE REFERRING PHYSICIAN: Baltazar Guerra MD. SUBJECTIVE: She is lying in the bed, head at 45 degrees. Attempt was made to get a right-sided midline IV access. Short of breath with exertion. No chest pain, no nausea, no vomiting. No melena today. No leg pain, no leg swelling. OBJECTIVE: GENERAL: In no acute distress. VITAL SIGNS: Temperature is 98, heart is 105, respiratory rate is 18, blood pressure is 134/62, pulse ox 99% on 3 liters nasal cannula. HEENT: Moist mucous membrane. Crowded airway. Mallampati score is 4. NECK: Supple. No JVD. LUNGS: Have a fair airflow with rhonchi. HEART: S1 and S2. ABDOMEN: Soft, nontender, no organomegaly. EXTREMITIES: No edema. NEUROLOGIC: Awake, alert, and follows simple command. MEDICATIONS: She is on Brovana inhaled twice a day, Cardizem 5 mg IV every 6 hour p.r.n., Cardizem 120 mg daily, DuoNeb every 6 hour p.r.n., metoprolol tartrate 25 mg twice a day, metoprolol tartrate IV every 6 hour p.r.n. for a heart rate above 130, meropenem 1 g IV every 8 hour, Percocet 5/325 one tablet every 6 hour p.r.n., Protonix 40 mg daily, Pulmicort inhaled twice a day, Xopenex 1.25 mg every 6 hours p.r.n. LABORATORY DATA: Shows hemoglobin 9, hematocrit 27.2, WBC 13.7, platelet is 394. INR 1.57. Sodium 140, potassium 3.5, chloride 104, bicarbonate 28, BUN 7, creatinine 0.8, glucose 104, calcium is 8.7. AST 19, ALT 28, alk phos is 71. Albumin is 3.1. Urinalysis has gram-negative rods. She has endoscopy done today which shows esophagogastric landmark, 35. Has a hiatal hernia, nonbleeding gastric ulcer with clear ulcer base. IMPRESSION AND PLAN: GI bleed, anemia requiring transfusion, also requiring fresh frozen plasm and reversal of coagulopathy, history of upper GI bleed, atrial fibrillation, coronary artery disease, chronic obstructive lung disease, suspected sleep apnea syndrome, now has a urinary tract infection. Case discussed with the nursing staff, 1 mg morphine is given to stabilize the patient to get a midline IV catheter. Pulmonary point of view, keep head at 45 degrees. Sleep apnea precaution. Bronchodilator. Will need pulmonary function test and sleep study upon discharge as outpatient. Anticoagulation as per Cardiology. Follow up labs in the morning. Thank you and we will follow up with you. Brittany Arciniega MD
[2017-12-11] MEDS: Pantoprazole 40 mg EC Tab PO SCH ×2 (06:05→16:46)
[2017-12-11] MEDS: Meropenem IV 1 gm in NS 50 ML IVPB SCH ×4 (06:05→21:29)
[2017-12-11] MEDS: Arformoterol 15 mcg/2 ml Inh Sol IH SCH ×2 (07:18→19:45)
[2017-12-11 07:19] LABS: ALB/GLOB RATIO 1.1 (1.1-1.8); ALBUMIN 3.1 g/dL (3.0-4.8); ALT/SGPT 27 U/L (7-56); AST/SGOT 23 U/L (14-36); BLOOD UREA NITROGEN 6 mg/dL (7-21); CALCIUM 8.7 mg/dL (8.4-10.5); GFR AFRICAN-AMERICAN > 60; GFR NON-AFRICAN AMERICAN > 60
[2017-12-11] MEDS: Budesonide 0.25 mg/2 ml Inhal Susp UD IH SCH ×2 (07:19→19:45)
[2017-12-11] MEDS ORDERED: Magnesium 2 gm/50 ml NS 2 GM/50 ML BAG IVPB ONE (07:47)
--- NOTE | 2017-12-11 08:08 | CP.PCM.PN ---
<Cyn Fragoso - Last Filed: 12/11/17 11:12> Subjective - Date & Time of Evaluation Date of Evaluation: 12/11/17 Time of Evaluation: 08:00 - Subjective Subjective: GI Progress Note for Daniel Correia PGY2 Patient seen and examined at bedside. There were no acute overnight events as per nursing staff. Patient reports having pain in her L leg and thinks it is because she has not been moving as much. She reports her abdomen feels better and denies chest pain, shortness of breath, nausea/vomiting/diarrhea, fever/ chills, numbness or tingling. Patient's IV fell out and is refusing to have one be put in because she is afraid of needles. Objective - Vital Signs/Intake and Output Vital Signs (last 24 hours): Temp Pulse Resp BP Pulse Ox 99.0 F 103 H 18 134/62 99 12/10/17 08:09 12/10/17 22:00 12/10/17 18:29 12/10/17 09:44 12/10/17 08:30 - Medications Medications: Current Medications Albuterol/Ipratropium (Duoneb 3 Mg/0.5 Mg (3 Ml) Ud) 3 ml IH [id number] PRN PRN Reason: Shortness of Breath Arformoterol Tartrate (Brovana) 15 mcg IH [id number] [facility] Last Admin: 12/11/17 07:18 Dose: 15 mcg Budesonide (Pulmicort Respules) 0.25 mg IH [id number] [facility] Last Admin: 12/11/17 07:19 Dose: 0.25 mg Diltiazem HCl (Cardizem) 5 mg IVP Q6 PRN PRN Reason: Heart rate Diltiazem HCl (Cardizem Cd) 120 mg PO DAILY [facility] Last Admin: 12/10/17 09:43 Dose: 120 mg Meropenem (Merrem Iv 1 Gm Premix) 50 mls @ 100 mls/hr IVPB Q8 [facility] PRN Reason: Protocol Last Admin: 12/11/17 06:05 Dose: 100 mls/hr Magnesium 2 gm/50 ml NS (Magnesium Sulfate 2 Gm/50 Ml Ns) 2 gm in 50 mls @ 50 mls/hr IVPB ONCE ONE Stop: 12/11/17 08:46 Levalbuterol HCl (Xopenex) 1.25 mg IH [id number] PRN PRN Reason: Shortness of Breath Metoprolol Tartrate (Lopressor) 25 mg PO BID [facility] Last Admin: 12/10/17 09:44 Dose: 25 mg Metoprolol Tartrate (Lopressor) 5 mg IV Q6H PRN PRN Reason: for HR>130, hold for sbp<90 Oxycodone/Acetaminophen (Percocet 5/325 Mg Tab) 1 tab PO Q6H PRN PRN Reason: Pain, moderate (4-7) Stop: 12/13/17 16:03 Last Admin: 12/10/17 22:23 Dose: 1 tab Pantoprazole Sodium (Protonix Ec Tab) 40 mg PO 0600,1600 [facility] Last Admin: 12/11/17 06:05 Dose: 40 mg - Labs Labs: 12/10/17 08:45 12/11/17 06:00 PT 18.2 SECONDS (9.4-12.5) H 12/10/17 07:00 INR 1.57 (0.93-1.08) H 12/10/17 07:00 APTT 34.7 Seconds (25.1-36.5) 12/08/17 02:15 - Constitutional Appears: No Acute Distress - Head Exam Head Exam: NORMAL INSPECTION - Eye Exam Eye Exam: Normal appearance Pupil Exam: NORMAL ACCOMODATION - ENT Exam ENT Exam: Mucous Membranes Moist - Neck Exam Neck Exam: Full ROM - Respiratory Exam Respiratory Exam: Clear to Ausculation Bilateral, NORMAL BREATHING PATTERN. absent: Rales, Rhonchi, Wheezes - Cardiovascular Exam Cardiovascular Exam: Tachycardia, Irregular Rhythm, +S1, +S2. absent: Gallop, Rubs, Murmur - GI/Abdominal Exam GI & Abdominal Exam: Soft, Normal Bowel Sounds. absent: Rigid, Tenderness, Mass , Rebound - Extremities Exam Extremities Exam: Calf Tenderness (on L ), Normal Inspection. absent: Pedal Edema - Neurological Exam Neurological Exam: Alert, Awake, CN II-XII Intact, Oriented x3 - Psychiatric Exam Psychiatric exam: Normal Affect, Normal Mood - Skin Skin Exam: Dry, Warm Assessment and Plan - Assessment and Plan (Free Text) Assessment: This is a 62yo AA female with past medical history of a.fib (was on Coumadin), MV repair, CAD who was admitted for 1. GI bleed secondary 2. UTI 3. Diarrhea- resolved 4. A.fib (anticoagulation on hold) 5. CAD Plan: EGD showed 1cm non-bleeding ulcer (Encampment Class III). Patient is on antibiotics for UTI. ID is on consult. Repeat Urine culture negative for ESBL. Recommend for patient to continue PPI and will advance her diet to soft heart healthy. Although on physial exam, DVT seems unlikely, we will get lower extremity dopplers to rule out DVT since patient has been off of anticoagulation. We recommend to start patient on low dose anticoagulation. Since patient can be at risk for blood clots with a history of a.fib and no anticoagulation. As per Cardiology, they would like to hold off on anticoagulation for now and discuss the plan with them. Case seen, discussed and reviewed with Dr. Ramirez. Daniel Fragoso PGY2 <Sun Ramirez V - Last Filed: 12/11/17 23:43> Objective - Vital Signs/Intake and Output Vital Signs (last 24 hours): Temp Pulse Resp BP Pulse Ox 99.6 F 112 H 20 123/57 L 99 12/11/17 20:00 12/11/17 20:00 12/11/17 20:00 12/11/17 18:00 12/10/17 08:30 - Medications Medications: Current Medications Arformoterol Tartrate (Brovana) 15 mcg IH [id number] [facility] Last Admin: 12/11/17 19:45 Dose: Not Given Budesonide (Pulmicort Respules) 0.25 mg IH [id number] [facility] Last Admin: 12/11/17 19:45 Dose: Not Given Diltiazem HCl (Cardizem) 5 mg IVP Q6 PRN PRN Reason: Heart rate Diltiazem HCl (Cardizem Cd) 120 mg PO DAILY [facility] Last Admin: 12/11/17 09:10 Dose: 120 mg Meropenem (Merrem Iv 1 Gm Premix) 50 mls @ 100 mls/hr IVPB Q8 [facility] PRN Reason: Protocol Last Admin: 12/11/17 21:29 Dose: 100 mls/hr Levalbuterol HCl (Xopenex) 0.63 mg IH [id number] PRN PRN Reason: Shortness of Breath Magnesium Oxide (Mag-Ox) 400 mg PO BID [facility] Last Admin: 12/11/17 17:00 Dose: 400 mg Metoprolol Tartrate (Lopressor) 25 mg PO BID [facility] Last Admin: 12/11/17 17:00 Dose: 25 mg Metoprolol Tartrate (Lopressor) 5 mg IV Q6H PRN PRN Reason: for HR>130, hold for sbp<90 Oxycodone/Acetaminophen (Percocet 5/325 Mg Tab) 1 tab PO Q6H PRN PRN Reason: Pain, moderate (4-7) Stop: 12/13/17 16:03 Last Admin: 12/11/17 21:14 Dose: 1 tab Pantoprazole Sodium (Protonix Ec Tab) 40 mg PO 0600,1600 [facility] Last Admin: 12/11/17 16:46 Dose: 40 mg Sucralfate (Carafate Oral Susp) 1 gm PO 0600,1600 [facility] - Labs Labs: 12/10/17 08:45 12/11/17 06:00 PT 18.2 SECONDS (9.4-12.5) H 12/10/17 07:00 INR 1.57 (0.93-1.08) H 12/10/17 07:00 APTT 34.7 Seconds (25.1-36.5) 12/08/17 02:15 Attending/Attestation - Attestation I have personally seen and examined this patient.: Yes I have fully participated in the care of the patient.: Yes I have reviewed all pertinent clinical information, including history, physical exam and plan: Yes Notes (Text): This is an addendum to GI progress report dictated by the Machinery Repair Maintenance Supervisor.The patient was seen and examined earlier. Medical records, lab studies, imagings were reviewed. Last 24 hours events reviewed. Agreed with the above treatment plan as outlined in Machinery Repair Maintenance Supervisor 's notes the with the addition of the following On examination patient's a tenderness Cardiology note reviewed now off the anticoagulation.. Restart anticoagulation as per cardiology if anticoagulation is started will need close follow-up hematocrit would avoid newer anticoagulant Continue high-dose PPI 12/11/17 23:38
--- NOTE | 2017-12-11 08:38 | PN ---
PROCEDURE DATE: 12/10/2017 This patient underwent an upper GI endoscopy today. She was found to have an 1-cm size ulcer noticed in the antrum-prepyloric area. The ulcer was clean based. No visible vessel was noticed. Recommendation is to slowly advance the diet. The patient needs to have a low level anticoagulation with close monitoring of the hemoglobin and hematocrit. Continue the high dose PPI. Sun Ramirez MD
[2017-12-11] MEDS: diltiaZEM 120 mg/24 Hours CD Cap PO SCH (09:10)
[2017-12-11] MEDS ORDERED: Levalbuterol 0.63 MG/3 ML Inhal Soln UD IH PRN (09:11)
[2017-12-11] MEDS ORDERED: Potassium Chloride 20 mEq ER Tab PO ONE (09:21)
--- NOTE | 2017-12-11 10:20 | CP.PCM.PN ---
Subjective - Date & Time of Evaluation Date of Evaluation: 12/11/17 Time of Evaluation: 09:40 - Subjective Subjective: Comfortable, no fevers, not in distress currently. Objective - Vital Signs/Intake and Output Vital Signs (last 24 hours): Temp Pulse Resp BP Pulse Ox 99.0 F 125 H 19 134/62 99 12/10/17 08:09 12/11/17 08:50 12/11/17 08:48 12/10/17 09:44 12/10/17 08:30 - Medications Medications: Current Medications Albuterol/Ipratropium (Duoneb 3 Mg/0.5 Mg (3 Ml) Ud) 3 ml IH [id number] PRN PRN Reason: Shortness of Breath Arformoterol Tartrate (Brovana) 15 mcg IH [id number] [facility] Last Admin: 12/11/17 07:18 Dose: 15 mcg Budesonide (Pulmicort Respules) 0.25 mg IH [id number] [facility] Last Admin: 12/11/17 07:19 Dose: 0.25 mg Diltiazem HCl (Cardizem) 5 mg IVP Q6 PRN PRN Reason: Heart rate Diltiazem HCl (Cardizem Cd) 120 mg PO DAILY [facility] Last Admin: 12/10/17 09:43 Dose: 120 mg Meropenem (Merrem Iv 1 Gm Premix) 50 mls @ 100 mls/hr IVPB Q8 [facility] PRN Reason: Protocol Last Admin: 12/11/17 06:05 Dose: 100 mls/hr Levalbuterol HCl (Xopenex) 1.25 mg IH [id number] PRN PRN Reason: Shortness of Breath Metoprolol Tartrate (Lopressor) 25 mg PO BID [facility] Last Admin: 12/10/17 09:44 Dose: 25 mg Metoprolol Tartrate (Lopressor) 5 mg IV Q6H PRN PRN Reason: for HR>130, hold for sbp<90 Oxycodone/Acetaminophen (Percocet 5/325 Mg Tab) 1 tab PO Q6H PRN PRN Reason: Pain, moderate (4-7) Stop: 12/13/17 16:03 Last Admin: 12/10/17 22:23 Dose: 1 tab Pantoprazole Sodium (Protonix Ec Tab) 40 mg PO 0600,1600 [facility] Last Admin: 12/11/17 06:05 Dose: 40 mg - Labs Labs: 12/10/17 08:45 12/11/17 06:00 PT 18.2 SECONDS (9.4-12.5) H 12/10/17 07:00 INR 1.57 (0.93-1.08) H 12/10/17 07:00 APTT 34.7 Seconds (25.1-36.5) 12/08/17 02:15 - Constitutional Appears: Chronically Ill - Head Exam Head Exam: NORMAL INSPECTION - Respiratory Exam Respiratory Exam: Decreased Breath Sounds - Cardiovascular Exam Cardiovascular Exam: +S1, +S2 - GI/Abdominal Exam GI & Abdominal Exam: Soft. absent: Tenderness Assessment and Plan - Assessment and Plan (Free Text) Plan: Assessment ESBL Klebsiella complicated UTI with Myers catheter GI bleeding chronic CHF severe mitral regurgitation S/P mitral valve replacement atrial fibrillation asthma HTN esophageal ulcers carpal tunnel syndrome COPD dyslipidemia atrial fibrillation S/P cholecystectomy S/P foot surgery Plan continue Merrem day 2 and would recommend change of Myers catheter - should aim for 5-7 days of antibiotics follow up further recommendations of GI regarding GI bleeding will continue to monitor clinically
[2017-12-11] MEDS: Magnesium Oxide 400 mg Tab UD PO SCH ×2 (13:02→17:00)
--- NOTE | 2017-12-11 13:17 | PQF ANEMIA ---
This form is a permanent part of the medical record Dr. Guerra, Patient admitted with GI bleeding and anemia treated with 2UPRBC and platelets. Please specify type and acuity of anemia present in this patient. Clarification of your documentation is requested to better reflect the severity of illness and intensity of treatment of your patient. Indicators present [x] Anemia [x] Drop in H&H from []_9__ to []___7 [] Hypotension [x] GI Bleed [x] Transfusion(s) [] Acute bleed other sites [x] Tachycardia [] Surgical Procedure Blood Loss (expected not a complication) Other:[] Location in the medical record that reflects the above clinical findings: [] Treatment Provided: [] PHYSICIAN'S RESPONSE Based on your medical judgment of the clinical indicators outlined above, are you treating this patient for a known or suspected: [x] Acute blood loss anemia [] Chronic blood loss anemia [x] Acute on Chronic blood loss anemia [] Anemia due to malignancy [] Anemia due to chemotherapy or radiation therapy [] Anemia of Chronic Disease, please specify: [] [] Other, please indicate type of anemia []____ [] If Unable to Determine, please check the box, sign and date. Present On Admission (POA) Indicator: [x] Present at the time of admission [] Not present at the time of admission [] Clinically Undetermined In responding to this query, please exercise your independent professional judgment. The fact that a question is asked does not imply that any particular answer is desired or expected. Thank you for your clarification on this documentation. If you have any questions please call:[ ] * Thank you, [ ]Bita Conteh [facility] #[id number] medical liaison WILMER
[2017-12-11] MEDS: Oxycodone/Acetaminophen 5/325 mg Tab PO PRN ×2 (13:20→21:14)
--- NOTE | 2017-12-11 14:26 | PN ---
DATE: 12/11/2017 REASON FOR CONSULTATION AND FOLLOWUP: Cardiac evaluation; recurrent GI bleed; paroxysmal atrial fibrillation, was on anticoagulation prior to bleed; history of mitral valve replacement, bioprosthetic; nonobstructive coronary artery disease. SUBJECTIVE: The patient denies any chest pain, shortness of breath, or any palpitations. The patient denies any apparent distress. Status post endoscopy yesterday. OBJECTIVE: GENERAL: Not in apparent distress, lying flat in the bed. VITAL SIGNS: Temperature afebrile, heart rate 125, blood pressure 140/61. HEENT: PERRLA. Intact. NECK: Supple. No carotid bruit or thyromegaly. CHEST: Clear to auscultation. HEART: S1 and S2, regular. ABDOMEN: Soft. EXTREMITIES: Clubbing and cyanosis negative. LABORATORY DATA: WBC 13.7, hemoglobin 9, hematocrit 27.2, and platelet count 394. Chemistry shows sodium 139, potassium 3.7, chloride 101, carbon dioxide 27, anion gap of 12. BUN 6, creatinine 0.9. Magnesium 1.5. IMPRESSION: Recurrent gastrointestinal bleed, while the patient was on anticoagulation for paroxysmal atrial fibrillation. The patient was in Transitional Care Unit, anticoagulation was started, and INR went to 3.96 yesterday, reversed with vitamin K. Yesterday, the patient underwent endoscopy. Ulcer, but not bleeding. History of mitral valve replacement, bioprosthetic; nonobstructive coronary artery disease, status post cardiac catheterization twice, most recently in 04/2017, before open heart surgery; history of paroxysmal atrial fibrillation. RECOMMENDATIONS: Keep off anticoagulation. Monitor H and H. Continue Cardizem CD 120 mg, continue metoprolol 25 mg twice p.r.n. The patient will not get any anticoagulation. Should the patient go back into AFib, consider EP study and WATCHMAN placement, discussed with the patient. We will supplement electrolyte. If remaining stable, the patient is okay to be transferred to telemetry. We will discontinue albuterol because it causes more tachycardia. We changed the Xopenex 0.63 every 6 hours p.r.n. Avoid nebulizer treatment to prevent going into rapid atrial fibrillation. We will also supplement potassium. We will do CBC, magnesium, and phosphorus level in the morning. Thank you, Dr. Guerra, for providing us the opportunity in taking care of the patient, Dariana Mcgregor. Brittany Beebe MD
--- NOTE | 2017-12-11 14:57 | PN ---
DATE: 12/11/2017 PULMONARY PROGRESS NOTE REFERRING PHYSICIAN: Baltazar Guerra MD. SUBJECTIVE: She is lying in the bed, head at 45 degrees. Frustrated because hurt her with the IV, no veins, could not get this morning antibiotics. Not much cough, sputum production. No chest pain. No melena reported today. No leg pain or leg swelling. OBJECTIVE: GENERAL: In no acute distress. VITAL SIGNS: Temperature is 98, heart rate is 110, respiratory rate is 14, blood pressure 162/84. HEENT: Moist mucous membrane. Crowded airway. Mallampati score is 4. NECK: Supple. No JVD. LUNGS: Have a fair airflow with rhonchi. HEART: S1 and S2. ABDOMEN: Soft, nontender. No organomegaly. EXTREMITIES: Not much edema. NEUROLOGICAL: Awake and alert. Follows simple command. LABORATORY DATA: Reviewed. Sodium 136, potassium 3.7, chloride 101, bicarbonate 27, BUN 6, creatinine 0.9, glucose 104, calcium is 8.7, magnesium is 1.5. AST 23, ALT 27, alk phos is 95, albumin is 3.1. Urine culture has Klebsiella pneumoniae, which is sensitive to Cipro. MEDICATIONS: She is on Brovana inhaled twice a day, Cardizem 5 mg IV every 6 hours p.r.n., Cardizem CD 120 mg daily, metoprolol tartrate 25 mg twice a day and also metoprolol 5 mg IV every 6 hours p.r.n., mag oxide 400 mg twice a day, meropenem 1 g IV every 8 hours, Percocet 5/325 one tab every 6 hours p.r.n., Protonix 40 mg twice a day, Pulmicort inhaled twice a day, Xopenex inhaled every 6 hours p.r.n. IMPRESSION AND PLAN: Gastrointestinal bleed, anemia requiring transfusion, has gastric ulcers, history of atrial fibrillation, coronary artery disease, chronic obstructive lung disease, suspected sleep apnea syndrome, urinary tract infection with Cipro-sensitive organism. Case discussed with the nursing staff. Also spoke to the aviation maintenance technician. Antibiotics could be switched p.o. antibiotics if it is okay with Infectious Diseases. The patient could be transferred to type of services. Outpatient pulmonary function test and sleep study. Aspiration precaution. Continue bronchodilator. Follow up labs in the morning. Thank you and we will follow with you. Brittany Arciniega MD
--- NOTE | 2017-12-11 15:56 | PN ---
DATE: 12/10/2017 SUBJECTIVE: Status post endoscopy. She is comfortable. We are having IV access problem. Patient in the unit. She is comfortable otherwise. OBJECTIVE: VITAL SIGNS: Temperature is 98, heart rate 99, blood pressure 130/70, respirations 18, saturating 95%. HEAD AND NECK: Normal. No JVD. No thyromegaly. CHEST: Clear bilaterally. CARDIAC: First sound and second sound normal, regular. ABDOMEN: Soft, nontender. EXTREMITIES: No edema. NEUROLOGIC: Normal. LABORATORY DATA: On 12/10: White count 12, hemoglobin 9.1, hematocrit 27.3, and platelets 374. Chemistry shows sodium 140, potassium 3.5, chloride 104, bicarb 28. BUN 7, creatinine 0.8. Magnesium is 1.5. Liver function test is normal. IMPRESSION AND PLAN: 1. Acute upper gastrointestinal bleeding, status post endoscopy. Endoscopic view of the ulcer, no active bleeding. Patient was started on a soft diet. 2. Hypomagnesemia, electrolyte abnormalities, will be replaced. Potassium will be given p.o. because patient has IV access problem. We will get a PICC line. Magnesium was given p.o. At this time, we will follow up clinically and repeat labs. 3. Anemia, status post transfusion 2 units of packed red blood cells, 2 units of fresh frozen plasma. Repeat labs in the morning. Hematology consult in the case. 4. Paroxysmal atrial fibrillation. She is off any anticoagulant now. We will leave this to the Cardiology and Hematology to manage the PT/INR. Probably, we will need low dose IV heparin and small low dose also Coumadin. INR 1.8, 1.6, and 1.8; as per Dr. Jimenez, it is okay for this particular patient with recurrent bleeding. We will consider ablation for her. At this time, we will continue current therapy. Continue current treatment. Follow up with the consultants. 5. Urinary tract infection, Klebsiella. She is on meropenem, ID consult in the case. Continue current therapy. IV access will be done by Dr. John Vera. Baltazar Guerra MD
--- NOTE | 2017-12-11 20:24 | US ---
HISTORY: Leg pain and swelling. Evaluate for DVT PHYSICIAN(S): John Vera MD. TECHNIQUE: Duplex sonography and color-flow Doppler with graded compression were used to evaluate the deep venous systems of both lower extremities. FINDINGS: The visualized deep venous systems of both lower extremities are sonographically normal and compressible. Normal wave forms and augmentation are seen. There is no sonographic evidence for deep venous thrombosis in the visualized segments of both lower extremities. IMPRESSION: No sonographic evidence for deep venous thrombosis in the visualized segments of both lower extremities.
[2017-12-11 20:58] VITALS: TEMP 99.6
--- NOTE | 2017-12-12 02:25 | PN ---
DATE: 12/11/2017 This is [facility] visit in the Intensive Care Unit. For, Dr. Jimenez. SUBJECTIVE: The patient is a 62-year-old female seen lying awake in bed in the Intensive Care Unit, now status post transfusion of packed red blood cells and fresh frozen plasma for acute GI bleed while on TCU. The patient was being transitioned from low-flow heparin to low-dose Coumadin as the patient is now suffering from paroxysmal atrial fibrillation with severe mitral regurgitation status post open heart surgery with bioprosthetic valve repair. She also suffers from coronary artery disease, COPD with a rectal bleed and an INR of 4.14 with a hemoglobin having dropped to 7. At present, she is now resting comfortably with the labs being monitored with an INR yesterday, 1.57, and a hemoglobin of 9. Her chem metabolic panel was within normal range this morning. Her urinalysis on 12/09/2017 showed large amount of blood in the urine and stool for occult blood was positive earlier today. The patient is now to be scheduled for radiofrequency ablation by Dr. Beebe with eventually the patient to be maintained on a low dose Coumadin to keep an INR in the 1.8 range after discussion with Dr. Jimenez. We will order labs for the morning as per occupational physician and resident if they were not done earlier today. However, she appears to be in no acute distress. OBJECTIVE: PHYSICAL EXAMINATION: VITAL SIGNS: Temperature is 99.6, pulse 112, respirations 20, blood pressure 123/57 with a pulse ox most recently checked documented at 99% on 12/10/2017. HEENT: Unremarkable. NECK: Supple. HEART: Tachy rate. Occasional ectopic beat. LUNGS: Rare rhonchi. ABDOMEN: Soft. Nontender. EXTREMITIES: No edema. SKIN: Warm and dry. NEUROLOGIC: Awake, alert. SKIN: Otherwise warm, dry, and clear. LABORATORY DATA: The patient had EKG done 12/07/2017 showing sinus rhythm with short NC with premature atrial complex with aberrant conduction, nonspecific T-wave abnormalities, abnormal EKG. She had a Doppler ultrasound of her lower extremities done earlier today, it was read as no sonographic evidence of DVT in the visualized segments of both lower extremities. The patient had an EGD done by Dr. Ramirez yesterday which showed antral ulcer and hiatal hernia. The patient's labs again were done from yesterday reporting a blood cell count of 13.7, hemoglobin of 9, hematocrit 27.2, platelet count of 394,000. She had a chem metabolic panel completely within normal limits with a phosphorus of 1.5 done earlier today. INR yesterday was 1.57. Stool for occult blood was positive earlier today. Patient's blood cultures were negative from yesterday; however, urine clean catch showed Klebsiella pneumoniae on 12/09/2017, greater than 100,000 colonies. ASSESSMENT AND PLAN: For this patient is that of acute GI bleed, symptomatic anemia status post transfusion, paroxysmal atrial fibrillation, mitral valve regurgitation with bioprosthetic valve, coronary artery disease, chronic obstructive pulmonary disease, urinary tract infection, deconditioning, history of recent acute kidney injury, severe degenerative joint disease of the knees status post injection, gouty arthritis, hypertension. PLAN: The plan is to check the labs in the morning with further recommendations as indicated. Dr. Jimenez will speak with Dr. Beebe regarding radiofrequency ablation recommendations at [facility] with consideration to be restarted on low-flow heparin in anticipation of such procedure versus restarting her Coumadin at a very low dose; she was bolused 7.5 mg two times prior to her abnormal supratherapeutic INR with GI bleed. We will also continue present medical regimen including Protonix 40 mg twice a day as per Dr. Ramirez. We will also add Carafate 1 g p.o. oral suspension b.i.d. with monitoring the patient clinically. This is a complex patient with comprehensive, medically necessary and appropriate visit carried out in excess of 30 minutes [id number] time with the patient's questions answered to her satisfaction with her chart medicines reviewed, testing reviewed with discussion held with Dr. Guerra, her attending doctor, and also Dr. Ramirez, the gastrointestinal business info consultant, with Dr. Beebe also to make recommendations regarding possible radiofrequency ablation as indicated. Larry Mcdaniel MD
[2017-12-12] MEDS ORDERED: Sucralfate 1 gm/10 ml Oral Susp UD PO SCH (06:00)
[2017-12-12] MEDS: Pantoprazole 40 mg EC Tab PO SCH (06:59)
[2017-12-12] MEDS ORDERED: levoFLOXacin 500 MG TAB PO SCH (07:00)
[2017-12-12 07:10] LABS: BASO # 0.01 K/mm3 (0.0-2.0); BASO % 0.1 % (0.0-3.0); EOS # 0.4 (0.0-0.7); EOS % 3.1 % (1.5-5.0); GRAN # 10.27 (1.4-6.5); GRAN % 71.8 % (50.0-68.0); HEMOGLOBIN 8.6 g/dL (12.0-16.0); LYMPH # 1.4 (1.2-3.4); LYMPH % 9.7 % (22.0-35.0); MEAN CELL VOLUME 92.2 fl (80.0-105.0); MEAN CORPUSCULAR HEMOGLOBIN 29.3 pg (25.0-35.0); MEAN CORPUSCULAR HGB CONC 31.7 g/dl (31.0-37.0); MONO # 2.2 (0.1-0.6); MONO % 15.3 % (1.0-6.0); RBC 2.94 10^6/uL (3.5-6.1); RED CELL DISTRIBUTION WIDTH 15.6 % (11.5-14.5); WHITE BLOOD COUNT 14.3 10^3/ul (4.5-11.0)
[2017-12-12 07:24] LABS: INR 1.47 (0.93-1.08)
[2017-12-12 07:41] LABS: ALB/GLOB RATIO 1.1 (1.1-1.8); ALBUMIN 3.1 g/dL (3.0-4.8); ALT/SGPT 24 U/L (7-56); AST/SGOT 22 U/L (14-36); BLOOD UREA NITROGEN 8 mg/dL (7-21); CALCIUM 8.9 mg/dL (8.4-10.5); GFR AFRICAN-AMERICAN > 60; GFR NON-AFRICAN AMERICAN > 60
--- NOTE | 2017-12-12 08:07 | CP.PCM.PN ---
Subjective - Date & Time of Evaluation Date of Evaluation: 12/12/17 Time of Evaluation: 13:59 - Subjective Subjective: Heme-Onc Progress note for Dr. Mcdaniel Patient seen and examined at bedside. Nursing reported no acute events overnight. She reported feeling very hot and itchy this morning and was requesting a fan by placed in her room. Patient reported a loose BM the day before with no signs of blood/melena. Patient complained of a headache which she related to feeling hot. On complete ROS patient denied acute complaints of dizziness, fever, chills, chest pain, palpitations, SOB, cough, abd pain, nausea , vomiting, bowel/bladder complaints, pain/swelling in her legs b/l. Objective - Vital Signs/Intake and Output Vital Signs (last 24 hours): Temp Pulse Resp BP Pulse Ox 99.6 F 112 H 20 123/57 L 99 12/11/17 20:00 12/11/17 20:00 12/11/17 20:00 12/11/17 18:00 12/10/17 08:30 - Medications Medications: Current Medications Arformoterol Tartrate (Brovana) 15 mcg IH [id number] [facility] Last Admin: 12/11/17 19:45 Dose: Not Given Budesonide (Pulmicort Respules) 0.25 mg IH [id number] [facility]CLUD[facility] Last Admin: 12/11/17 19:45 Dose: Not Given Diltiazem HCl (Cardizem) 5 mg IVP Q6 PRN PRN Reason: Heart rate Diltiazem HCl (Cardizem Cd) 120 mg PO DAILY [facility] Last Admin: 12/11/17 09:10 Dose: 120 mg Levalbuterol HCl (Xopenex) 0.63 mg IH [id number] PRN PRN Reason: Shortness of Breath Levofloxacin (Levaquin) 500 mg PO DAILY [facility] PRN Reason: Protocol Magnesium Oxide (Mag-Ox) 400 mg PO BID [facility] Last Admin: 12/11/17 17:00 Dose: 400 mg Metoprolol Tartrate (Lopressor) 25 mg PO BID [facility] Last Admin: 12/11/17 17:00 Dose: 25 mg Metoprolol Tartrate (Lopressor) 5 mg IV Q6H PRN PRN Reason: for HR>130, hold for sbp<90 Oxycodone/Acetaminophen (Percocet 5/325 Mg Tab) 1 tab PO Q6H PRN PRN Reason: Pain, moderate (4-7) Stop: 12/13/17 16:03 Last Admin: 12/11/17 21:14 Dose: 1 tab Pantoprazole Sodium (Protonix Ec Tab) 40 mg PO 0600,1600 [facility] Last Admin: 12/12/17 06:59 Dose: 40 mg Sucralfate (Carafate Oral Susp) 1 gm PO 0600,1600 [facility] Last Admin: 12/12/17 06:59 Dose: 1 gm - Labs Labs: 12/12/17 06:00 12/12/17 06:00 PT 17.0 SECONDS (9.4-12.5) H 12/12/17 06:00 INR 1.47 (0.93-1.08) H 12/12/17 06:00 APTT 34.7 Seconds (25.1-36.5) 12/08/17 02:15 - Constitutional Appears: Non-toxic, No Acute Distress - Head Exam Head Exam: ATRAUMATIC, NORMAL INSPECTION, NORMOCEPHALIC - Eye Exam Eye Exam: EOMI, Normal appearance, PERRL. absent: Conjunctival injection, Scleral icterus Pupil Exam: PERRL - ENT Exam ENT Exam: Mucous Membranes Moist - Neck Exam Neck Exam: Normal Inspection - Respiratory Exam Respiratory Exam: Clear to Ausculation Bilateral, NORMAL BREATHING PATTERN. absent: Accessory Muscle Use, Rales, Rhonchi, Wheezes, Respiratory Distress - Cardiovascular Exam Cardiovascular Exam: +S1, +S2 - GI/Abdominal Exam GI & Abdominal Exam: Soft, Normal Bowel Sounds. absent: Firm, Guarding, Rigid - Extremities Exam Extremities Exam: Normal Capillary Refill, Normal Inspection. absent: Pedal Edema, Tenderness - Neurological Exam Neurological Exam: Alert, Awake, CN II-XII Intact, Oriented x3 - Psychiatric Exam Psychiatric exam: Normal Affect, Normal Mood - Skin Skin Exam: Dry, Intact, Normal Color, Warm Assessment and Plan - Assessment and Plan (Free Text) Plan: 62yo female PMHx A-fib on coumadin, mitral valve repair (severe mitral regurgitation s/p open heart surgery and repair with MVR biprosthetic), CAD, COPD was transferred from TCU to MICU for rectal bleed on 12/07. Patient is s/p 2U PRBC, 1U FFP. s/p EGD showing 1cm nonbleeding ulcer (Dooly Class III). Patient currently transferred to [facility]. INR 1.47 this AM and H&H stable. Anticoag on hold. Recommend radiofrequency ablation at [facility] and restarting low-flow heparin in anticaption vs coumadin with INR goal of 1.8. GI Dr. Ramirez on board- appreciate reccs. Cardio Dr. Beebe on board- appreciate reccs. Continue management as per primary. Discussed with attending Tonia Cedillo PGY2
[2017-12-12] MEDS: Oxycodone/Acetaminophen 5/325 mg Tab PO PRN (08:10)
[2017-12-12 08:38] VITALS: BP 139/68; RESP 13
[2017-12-12] MEDS: diltiaZEM 120 mg/24 Hours CD Cap PO SCH (09:00)
[2017-12-12] MEDS: Magnesium Oxide 400 mg Tab UD PO SCH (09:00)
[2017-12-12 09:01] VITALS: PULSE 110
[2017-12-12] MEDS: Arformoterol 15 mcg/2 ml Inh Sol IH SCH (09:17)
[2017-12-12] MEDS: Budesonide 0.25 mg/2 ml Inhal Susp UD IH SCH (09:17)
[2017-12-12] MEDS ORDERED: Magnesium 2 gm/50 ml NS 2 GM/50 ML BAG IVPB ONE (09:39)
--- NOTE | 2017-12-12 10:40 | CP.PCM.PN ---
Objective - Vital Signs/Intake and Output Vital Signs (last 24 hours): Temp Pulse Resp BP Pulse Ox 99.6 F 110 H 13 139/68 99 12/11/17 20:00 12/12/17 09:00 12/12/17 08:00 12/12/17 09:00 12/10/17 08:30 - Medications Medications: Current Medications Arformoterol Tartrate (Brovana) 15 mcg IH [id number] [facility] Last Admin: 12/12/17 09:17 Dose: 15 mcg Budesonide (Pulmicort Respules) 0.25 mg IH [id number] [facility] Last Admin: 12/12/17 09:17 Dose: 0.25 mg Diltiazem HCl (Cardizem) 5 mg IVP Q6 PRN PRN Reason: Heart rate Diltiazem HCl (Cardizem Cd) 120 mg PO DAILY [facility] Last Admin: 12/12/17 09:00 Dose: 120 mg Magnesium 2 gm/50 ml NS (Magnesium Sulfate 2 Gm/50 Ml Ns) 2 gm in 50 mls @ 50 mls/hr IVPB ONCE ONE Stop: 12/12/17 10:38 Levalbuterol HCl (Xopenex) 0.63 mg IH [id number] PRN PRN Reason: Shortness of Breath Levofloxacin (Levaquin) 500 mg PO DAILY [facility] PRN Reason: Protocol Last Admin: 12/12/17 08:08 Dose: 500 mg Magnesium Oxide (Mag-Ox) 400 mg PO BID [facility] Last Admin: 12/12/17 09:00 Dose: 400 mg Metoprolol Tartrate (Lopressor) 5 mg IV Q6H PRN PRN Reason: for HR>130, hold for sbp<90 Metoprolol Tartrate (Lopressor) 50 mg PO BID [facility] Last Admin: 12/12/17 09:51 Dose: Not Given Oxycodone/Acetaminophen (Percocet 5/325 Mg Tab) 1 tab PO Q6H PRN PRN Reason: Pain, moderate (4-7) Stop: 12/13/17 16:03 Last Admin: 12/12/17 08:10 Dose: 1 tab Pantoprazole Sodium (Protonix Ec Tab) 40 mg PO 0600,1600 [facility] Last Admin: 12/12/17 06:59 Dose: 40 mg Sucralfate (Carafate Oral Susp) 1 gm PO 0600,1600 [facility] Last Admin: 12/12/17 06:59 Dose: 1 gm - Labs Labs: 12/12/17 06:00 12/12/17 06:00 PT 17.0 SECONDS (9.4-12.5) H 12/12/17 06:00 INR 1.47 (0.93-1.08) H 12/12/17 06:00 APTT 34.7 Seconds (25.1-36.5) 12/08/17 02:15
--- NOTE | 2017-12-12 11:14 | CP.PCM.PN ---
Subjective - Date & Time of Evaluation Date of Evaluation: 12/12/17 Time of Evaluation: 08:00 - Subjective Subjective: GI Progress Note for Daniel Correia PGY2 Patient seen and examined at bedside. There were no acute overnight events as per nursing staff. Patient states she feels much better today and is tolerating her diet. She denies chest pain, shortness of breath, nausea/vomiting/diarrhea, fever/chills, numbness or tingling. Her calf pain has resolved. Objective - Vital Signs/Intake and Output Vital Signs (last 24 hours): Temp Pulse Resp BP Pulse Ox 99.6 F 110 H 13 139/68 99 12/11/17 20:00 12/12/17 10:00 12/12/17 08:00 12/12/17 09:00 12/10/17 08:30 - Medications Medications: Current Medications Arformoterol Tartrate (Brovana) 15 mcg IH [id number] [facility] Last Admin: 12/12/17 09:17 Dose: 15 mcg Budesonide (Pulmicort Respules) 0.25 mg IH [id number] [facility] Last Admin: 12/12/17 09:17 Dose: 0.25 mg Diltiazem HCl (Cardizem) 5 mg IVP Q6 PRN PRN Reason: Heart rate Diltiazem HCl (Cardizem Cd) 120 mg PO DAILY [facility] Last Admin: 12/12/17 09:00 Dose: 120 mg Levalbuterol HCl (Xopenex) 0.63 mg IH [id number] PRN PRN Reason: Shortness of Breath Levofloxacin (Levaquin) 500 mg PO DAILY [facility] PRN Reason: Protocol Last Admin: 12/12/17 08:08 Dose: 500 mg Magnesium Oxide (Mag-Ox) 400 mg PO BID [facility] Last Admin: 12/12/17 09:00 Dose: 400 mg Metoprolol Tartrate (Lopressor) 5 mg IV Q6H PRN PRN Reason: for HR>130, hold for sbp<90 Metoprolol Tartrate (Lopressor) 50 mg PO BID [facility] Last Admin: 12/12/17 09:51 Dose: Not Given Oxycodone/Acetaminophen (Percocet 5/325 Mg Tab) 1 tab PO Q6H PRN PRN Reason: Pain, moderate (4-7) Stop: 12/13/17 16:03 Last Admin: 12/12/17 08:10 Dose: 1 tab Pantoprazole Sodium (Protonix Ec Tab) 40 mg PO 0600,1600 [facility] Last Admin: 12/12/17 06:59 Dose: 40 mg Sucralfate (Carafate Oral Susp) 1 gm PO 0600,1600 [facility] Last Admin: 12/12/17 06:59 Dose: 1 gm - Labs Labs: 12/12/17 06:00 12/12/17 06:00 PT 17.0 SECONDS (9.4-12.5) H 12/12/17 06:00 INR 1.47 (0.93-1.08) H 12/12/17 06:00 APTT 34.7 Seconds (25.1-36.5) 12/08/17 02:15 - Constitutional Appears: No Acute Distress - Head Exam Head Exam: ATRAUMATIC, NORMAL INSPECTION, NORMOCEPHALIC - Eye Exam Eye Exam: Normal appearance, PERRL Pupil Exam: NORMAL ACCOMODATION - ENT Exam ENT Exam: Mucous Membranes Moist - Respiratory Exam Respiratory Exam: Clear to Ausculation Bilateral, NORMAL BREATHING PATTERN. absent: Rales, Rhonchi, Wheezes - Cardiovascular Exam Cardiovascular Exam: REGULAR RHYTHM, +S1, +S2. absent: Gallop, Rubs, Murmur - GI/Abdominal Exam GI & Abdominal Exam: Soft, Normal Bowel Sounds. absent: Rigid, Tenderness, Mass , Rebound - Extremities Exam Extremities Exam: Normal Inspection. absent: Calf Tenderness, Pedal Edema - Neurological Exam Neurological Exam: Alert, Awake, CN II-XII Intact - Skin Skin Exam: Dry, Warm Assessment and Plan - Assessment and Plan (Free Text) Assessment: This is a 62yo AA female with past medical history of a.fib (was on Coumadin), MV repair, CAD who was admitted for 1. GI bleed - EGD showed 1cm non-bleeding ulcer ([place] Class III). 2. UTI 3. Diarrhea- resolved 4. A.fib (anticoagulation on hold) 5. CAD Plan: Hgb is stable. Continue high dose PPI and soft heart healthy diet. Extremity doppler negative for DVT. Calf pain resolved. Decision for re-starting anticoagulation will be decided by Cardiology. As per Dr. Beebe, he does not want patient to be on anti-coagulation due to high risk of bleeding. Hematology also is on consult for history of bleeding with anticoagulation. They recommend possible Continue antibiotics for UTI. Case seen, discussed and reviewed with Dr. Ramirez. Daniel Fragoso PGY2
--- NOTE | 2017-12-12 11:49 | PN ---
DATE: 12/12/2017 REASON FOR THE CONSULTATION AND FOLLOWUP: Cardiac evaluation; recurrent GI bleed; paroxysmal atrial fibrillation, was on anticoagulation prior to bleed this time; history of mitral valve replacement, bioprosthetic; nonobstructive coronary artery disease. SUBJECTIVE: The patient denies any chest pain, shortness of breath, any palpitations. OBJECTIVE: GENERAL: Not in any apparent distress. VITAL SIGNS: Temperature afebrile, heart rate 110, blood pressure 139/68. HEENT: PERRLA. Extraocular muscles intact. NECK: Supple. No carotid bruit. No thyromegaly. CHEST: Clear to auscultation. HEART: S1 and S2 regular. ABDOMEN: Soft. EXTREMITIES: Clubbing and cyanosis negative. LABORATORY DATA: Blood workup as follows; WBC 14.3, hemoglobin 8.6, hematocrit 27.1, platelet count 377. Chemistry shows sodium 130, potassium 4, chloride 102, carbon dioxide 29, anion gap of 11, BUN 8, creatinine 0.9, magnesium 1.6, phosphorus 3.1. IMPRESSION: A 62-year-old female with past medical history significant for nonobstructive coronary artery disease, status post catheterization twice, last catheterization in 04/2017 prior to mitral valve repair; nonobstructive coronary artery disease, 50% left anterior descending; history of severe mitral regurgitation; mitral valve prolapse, status post mitral valve replacement; history of recurrent gastrointestinal bleed, on anticoagulation because of paroxysmal atrial fibrillation. The patient bled twice in the hospital, off anticoagulation. RECOMMENDATIONS: Keep off anticoagulation. No further anticoagulation because the patient has more HAS-BLED score rather than ANGELA. Continue Cardizem CD 120 mg daily. Continue metoprolol, increase to 50 mg twice a day. Discuss with the resident. Discuss with Dr. Guerra. No anticoagulation. If the patient goes back into atrial fibrillation, we will consider EP evaluation and WATCHMAN device placement, but no anticoagulation because the patient bled multiple times. As mentioned above, has high HAS-BLED score. Also, avoid beta 2 agonist, dual nebulizer; if needed, we will route Xopenex 0.63 to prevent tachycardia. We will follow with you. The patient is also ____ because of the low potassium. Thank you, Dr. Guerra, for providing us the opportunity in taking care of the patient, Dariana Mcgregor. Brittany Beebe MD [facility] # [id number]
--- NOTE | 2017-12-12 12:27 | CP.PCM.PN ---
Subjective - Date & Time of Evaluation Date of Evaluation: 12/12/17 Time of Evaluation: 08:20 - Subjective Subjective: Patient comfortable in bed, no fevers, not in distress, no diarrhea. Objective - Vital Signs/Intake and Output Vital Signs (last 24 hours): Temp Pulse Resp BP Pulse Ox 99.6 F 112 H 20 123/57 L 99 12/11/17 20:00 12/11/17 20:00 12/11/17 20:00 12/11/17 18:00 12/10/17 08:30 - Medications Medications: Current Medications Arformoterol Tartrate (Brovana) 15 mcg IH [id number] [facility] Last Admin: 12/11/17 19:45 Dose: Not Given Budesonide (Pulmicort Respules) 0.25 mg IH [id number] [facility] Last Admin: 12/11/17 19:45 Dose: Not Given Diltiazem HCl (Cardizem) 5 mg IVP Q6 PRN PRN Reason: Heart rate Diltiazem HCl (Cardizem Cd) 120 mg PO DAILY [facility] Last Admin: 12/11/17 09:10 Dose: 120 mg Levalbuterol HCl (Xopenex) 0.63 mg IH [id number] PRN PRN Reason: Shortness of Breath Levofloxacin (Levaquin) 500 mg PO DAILY [facility] PRN Reason: Protocol Magnesium Oxide (Mag-Ox) 400 mg PO BID [facility] Last Admin: 12/11/17 17:00 Dose: 400 mg Metoprolol Tartrate (Lopressor) 25 mg PO BID [facility] Last Admin: 12/11/17 17:00 Dose: 25 mg Metoprolol Tartrate (Lopressor) 5 mg IV Q6H PRN PRN Reason: for HR>130, hold for sbp<90 Oxycodone/Acetaminophen (Percocet 5/325 Mg Tab) 1 tab PO Q6H PRN PRN Reason: Pain, moderate (4-7) Stop: 12/13/17 16:03 Last Admin: 12/11/17 21:14 Dose: 1 tab Pantoprazole Sodium (Protonix Ec Tab) 40 mg PO 0600,1600 [facility] Last Admin: 12/11/17 16:46 Dose: 40 mg Sucralfate (Carafate Oral Susp) 1 gm PO 0600,1600 [facility] - Labs Labs: 12/10/17 08:45 12/11/17 06:00 PT 18.2 SECONDS (9.4-12.5) H 12/10/17 07:00 INR 1.57 (0.93-1.08) H 12/10/17 07:00 APTT 34.7 Seconds (25.1-36.5) 12/08/17 02:15 - Constitutional Appears: Non-toxic, Chronically Ill - Head Exam Head Exam: NORMAL INSPECTION - Neck Exam Neck Exam: absent: Meningismus - Respiratory Exam Respiratory Exam: Decreased Breath Sounds - Cardiovascular Exam Cardiovascular Exam: +S1, +S2 - GI/Abdominal Exam GI & Abdominal Exam: Soft. absent: Tenderness Assessment and Plan - Assessment and Plan (Free Text) Plan: Assessment ESBL Klebsiella complicated UTI with Myers catheter - now the Klebsiella is sensitive to Quinolones GI bleeding chronic CHF severe mitral regurgitation S/P mitral valve replacement atrial fibrillation asthma HTN esophageal ulcers carpal tunnel syndrome COPD dyslipidemia atrial fibrillation S/P cholecystectomy S/P foot surgery Plan QTc is less than 500 ms - can switch to PO Levaquin (day 3 total) to complete 5- 7 days total antibiotics will continue to monitor clinically
--- NOTE | 2017-12-12 16:15 | PN ---
DATE: 12/11/2017 SUBJECTIVE: Patient is in the unit; she is sitting; very alert, awake, oriented x3. She has no chest pain, not short of breath. Patient has no other complaints. PHYSICAL EXAMINATION: VITAL SIGNS: Patient had a fever of 99, heart rate 114 and tachycardic, blood pressure is 130/70, respiratory rate 18, saturating 95% on room air. HEAD AND NECK: Normal. No JVD. No thyromegaly. CHEST: Clear bilaterally. CARDIAC: First sound and second sound normal. ABDOMEN: Soft, nontender. EXTREMITIES: No edema. NEUROLOGICAL: Normal. LABORATORY DATA: Patient has laboratory studies, which shows white count 13.7, hemoglobin 9, hematocrit 27.2, platelets 394. Chemistry: Sodium 136, potassium 3.7, chloride 101, bicarbonate 27, BUN 6, creatinine 0.9, magnesium is low at 1.5. Liver function test is normal. IMPRESSION AND PLAN: 1. Status post acute upper gastrointestinal bleed, status post transfusion 2 units packed red blood cells and fresh frozen plasma, hemoglobin running stable at 9. 2. Paroxysmal atrial fibrillation, discussed with Dr. Beebe. Currently, we will not give any anticoagulants because the patient is at risk of bleeding. We will continue to monitor lab. The patient atrial fibrillation, maybe we will take her to by cardiac specialist to take her to electrophysiology study and ablation therapy. We will continue to follow up with her cardiac specialist about that, discussed the risk of bleeding versus stroke or clot embolization. The decision was to hold off on any anticoagulation for now because of recurrent bleeding. Patient has atrial fibrillation, 62. No history of hypertension. She gave her medicine because of rapid atrial fibrillation. She had no diabetes. No other factors as discussed with the cardiac specialist. 3. Electrolyte abnormalities, hypomagnesemia, hypokalemia. Patient does not have IV access. We will get a PICC line. 4. Urinary tract infection, Klebsiella, resistant to multiple antibiotics. We will continue meropenem now. Patient needs to be treated for that infection; risk of sepsis increasing infection to pyelonephritis has to be advised to this patient. Patient wants to go home, but we explained to her that she needs to stay for treatment. 5. Status post mitral valve replacement, stable. 6. Hypercholesterolemia. 7. Peptic ulcer disease, stable. Try and continue current therapy for that. Continue sequential compression device for both lower extremities. CURRENT TREATMENTS: Brovana, Carafate, Cardizem 120 daily, Levaquin 500 p.o., metoprolol 25 p.o. b.i.d., magnesium oxide 400 b.i.d., oxycodone, Pepcid every 6 hour p.r.n., Protonix 40, Pulmicort 10, Xopenex. We will continue to follow up. Discussed with Dr. Valenzuela about whether the patient could be switched to p.o. antibiotic if with the patient according to the urine sensitivity. We will follow up on that. Baltazar Guerra MD
[2017-12-12] MEDS ORDERED: Magnesium Oxide 400 mg Tab UD PO SCH (18:00)
--- NOTE | 2017-12-14 04:51 | DS ---
HISTORY OF PRESENT ILLNESS: A 62-year-old female with recurrent GI bleed, was in TCU and discharged to the Emergency Room and admitted to ICU because of recurrent GI bleed and black tarry stools. The patient had an endoscopy 2-3 days after being in ICU, stabilized. She had blood transfusion. She has FFP, off Coumadin, and she was managed in the ICU. She had upper GI endoscopy, which shows ulcerations, gastric ulcer with no active bleeding. The patient was monitored. She seems stable. She had urinary tract infection, was given IV meropenem, due to IV access switch to either Cipro or Levaquin, which she is sensitive to. The patient seems stable. Otherwise, we want to monitor him more because of the recurrent risk of bleeding and discussed with the Cardiology about quitting anticoagulation. He recommends no anticoagulation at this time because risk of bleeding is too much. She no heparin, no Coumadin, no aspirin. The risk of bleeding is much higher than the risk of any embolization. At this time, the patient has a sinus rhythm, she has maintained in sinus rhythm, and she does not have any history of hypertension. She takes the blood pressure medicine that controls the heart rate as per doctors. So, we will discharge the patient to TCU to be followed, repeat lab in the morning, and we will monitor her case for the next few days. PHYSICAL EXAMINATION: VITAL SIGNS: Temperature 98, heart rate is 89, blood pressure 139/68, respirations 18, and saturation 97%. HEAD AND NECK: Normal. No JVD. No thyromegaly. CHEST: Clear bilaterally. CARDIAC: First sound and second sound normal. ABDOMEN: Soft, obese, nontender. EXTREMITIES: No edema. NEUROLOGIC: Normal. LABORATORY DATA: Shows white count 15.7, hemoglobin 9, hematocrit 27, platelets 394. Chemistry was noted for sodium 136, potassium 3.7, chloride 101, bicarb 27, BUN 6, creatinine 0.9. Liver function test is normal. Magnesium 1.5. DISCHARGE DIAGNOSES: 1. Recurrent upper gastrointestinal bleed. Monitor hemoglobin and hematocrit. 2. Generalized weakness, instability. We will monitor the patient in TCU for physical therapy and monitor hemoglobin and hematocrit. 3. History of paroxysmal atrial fibrillation. Currently, she is stable, in sinus rhythm, and no other symptoms. 4. Status post mitral valve replacement, biologic valve. 5. Hypercholesterolemia. 6. Pseudogouty arthritis. PLAN: Discharge the patient to U. Monitor H and H. We will follow up with the other consultants, GI and Cardiology. Baltazar Guerra MD
== END 2017-12-12 14:15 | DRG 378 ==
LOC: ED 21:42 → ERH 12-08 00:22 → ICU 12-08 02:57 → UNDODISIN 12-12 13:30
PROVIDERS: ADMIT Internal Medicine; ATTEND Internal Medicine
PROC: 30233K1 Transfusion of Nonautologous Frozen Plasma into Peripheral Vein, Percutaneous Approach (ICD-10-PCS; 2017-12-08)
PROC: 30233N1 Transfusion of Nonautologous Red Blood Cells into Peripheral Vein, Percutaneous Approach (ICD-10-PCS; 2017-12-08)
PROC: 0DJ08ZZ Inspection of Upper Intestinal Tract, Via Natural or Artificial Opening Endoscopic (ICD-10-PCS; principal; 2017-12-10 12:15)
DX: K25.4 Chronic or unspecified gastric ulcer with hemorrhage (principal); N39.0 Urinary tract infection, site not specified; D62 Acute posthemorrhagic anemia; K22.10 Ulcer of esophagus without bleeding; D68.9 Coagulation defect, unspecified; K44.9 Diaphragmatic hernia without obstruction or gangrene; E78.00 Pure hypercholesterolemia, unspecified; E83.42 Hypomagnesemia; E87.6 Hypokalemia; I48.0 Paroxysmal atrial fibrillation; I11.0 Hypertensive heart disease with heart failure; I50.9 Heart failure, unspecified; M10.9 Gout, unspecified; E78.5 Hyperlipidemia, unspecified; K27.4 Chronic or unspecified peptic ulcer, site unspecified, with hemorrhage; I48.2 Chronic atrial fibrillation; I25.10 Atherosclerotic heart disease of native coronary artery without angina pectoris; J44.9 Chronic obstructive pulmonary disease, unspecified; M54.9 Dorsalgia, unspecified; G89.29 Other chronic pain; M17.0 Bilateral primary osteoarthritis of knee; B96.1 Klebsiella pneumoniae [K. pneumoniae] as the cause of diseases classified elsewhere; Z16.12 Extended spectrum beta lactamase (ESBL) resistance; K29.70 Gastritis, unspecified, without bleeding; I73.9 Peripheral vascular disease, unspecified; I34.0 Nonrheumatic mitral (valve) insufficiency; Z79.01 Long term (current) use of anticoagulants; Z95.3 Presence of xenogenic heart valve; Z91.19 Patient's noncompliance with other medical treatment and regimen; Z91.14 Patient's other noncompliance with medication regimen; Z87.01 Personal history of pneumonia (recurrent)

== ENCOUNTER 2017-12-12 13:36 | Inpatient (IN) | payer OTHER ==
[2017-12-12] MEDS ORDERED: Levalbuterol 0.63 MG/3 ML Inhal Soln UD IH PRN (14:27)
[2017-12-12 16:52] VITALS: BMI 26.4
[2017-12-12] MEDS ORDERED: Pneumococcal 23-Valent Vaccine IM ONE (16:52)
[2017-12-12] MEDS: Sucralfate 1 gm/10 ml Oral Susp UD PO SCH (17:00)
[2017-12-12] MEDS: Pantoprazole 40 mg EC Tab PO SCH (17:00)
[2017-12-12] MEDS: Magnesium Oxide 400 mg Tab UD PO SCH (17:30)
[2017-12-12] MEDS: Oxycodone/Acetaminophen 5/325 mg Tab PO PRN (17:30)
[2017-12-12] MEDS ORDERED: Arformoterol 15 mcg/2 ml Inh Sol IH SCH (20:00)
[2017-12-12] MEDS: Budesonide 0.25 mg/2 ml Inhal Susp UD IH SCH (20:42)
[2017-12-12] MEDS: Arformoterol 15 mcg/2 ml Inh Sol IH SCH (20:42)
--- NOTE | 2017-12-13 00:50 | CON ---
DATE: 12/12/2017 PULMONARY CONSULT REFERRING PHYSICIAN: Dr. Guerra. REASON FOR CONSULT: Cough, shortness of breath, status post GI bleeding and sleep apnea syndrome, atrial fibrillation. HISTORY OF PRESENT ILLNESS: This is a 62-year-old female, known to me from previous admission and most recent admission from Intensive Care Unit, has a history of chronic lung disease secondary to passive smoking, suspected sleep apnea syndrome, atrial fibrillation, recurrent GI bleed, history of gastric ulcer, also has a history of coronary artery disease, history of mitral valve repair, who had been on anticoagulation, presented to emergency room with GI bleed, found to have a hemoglobin around 7 and INR was around 4. Received FFP packed cells and was admitted to Intensive Care Unit. She was resuscitated with the fluid, found to have a UTI, also treated for pneumonia. Has EKG done, which shows nonbleeding gastric ulcers. The patient seen by GI as well as from Cardiology. I believe there was advice not to anticoagulate the patient secondary to recurrent GI bleed. Plan is that somewhere along the line to do ablation therapy, presently sitting up on the side of the chair, has some cough. Admits to have loud snoring, daytime sleepy and tired. PAST MEDICAL HISTORY: As per history present illness. SOCIAL HISTORY: Positive history of passive smoking in the past. No history of alcohol abuse. ALLERGY: TO [place]. MEDICATIONS: She is on Brovana inhaled twice a day, Carafate 1 g twice a day, Cardizem CD 120 mg daily, Levaquin 500 mg daily, metoprolol tartrate 50 mg twice a day, mag oxide 400 mg twice a day, Percocet 5/325 one tab every 6 hours p.r.n., Protonix 40 mg twice a day, Pulmicort inhaled twice a day, Xopenex inhaled every 6 hours p.r.n. REVIEW OF SYSTEMS: No headache, no rhinitis. Has some cough, shortness of breath. No chest pain. No nausea, no vomiting, no diarrhea, no abdominal pain. Still has some trace blood in the stool. No leg pain. No leg swelling. PHYSICAL EXAMINATION: GENERAL: Sitting on side of the bed, no acute distress. VITAL SIGNS: Temperature is 98, heart rate 76, respiratory rate is 20, blood pressure 135/75. HEENT: Moist mucous membrane. Crowded airway. Mallampati score is 4. Neck: Supple. No JVD. LUNGS: Have scattered rhonchi. HEART: S1 and S2. ABDOMEN: Soft, nontender. No organomegaly. EXTREMITIES: There is not much edema. NEUROLOGICAL: Awake and alert. Follows simple commands. LABORATORY DATA: Shows hemoglobin 8.6, hematocrit 27.1, WBC 14.3, platelet count is 377. INR 1.47. Sodium 137, potassium 4, chloride 102, bicarbonate 29, BUN 8, creatinine 0.9, glucose 111, calcium 8.9, phosphorus 3.1, magnesium 1.6, AST 22, ALT 24, alk phos is 85. Albumin is 3.1. Stool occult blood had been negative. Microbiology: Blood culture has been negative. Urine culture: Klebsiella pneumoniae. IMPRESSION AND PLAN: Status post gastrointestinal bleed, found to have a gastric ulcer, which was not bleeding though at the time of diagnosis and scope, anemia requiring transfusion, coagulopathy requiring reversal with fresh-frozen plasma, has atrial fibrillation, coronary artery disease, chronic obstructive lung disease, suspected sleep apnea syndrome, being treated for urinary tract infection. Case discussed with the patient in detail. In the future, will have ablation therapy for atrial fibrillation. For now, off anticoagulation, gastric prophylaxis, sleep apnea precaution, bronchodilator. After discharge from Transitional Care Unit, will need pulmonary function test and attended sleep study. Thank you and we will follow with you. Brittany Arciniega MD
[2017-12-13] MEDS ORDERED: Aritificial Tears (15ml) OU PRN (03:55)
--- NOTE | 2017-12-13 04:42 | CP.PCM.PN ---
Subjective - Date & Time of Evaluation Date of Evaluation: 12/13/17 Time of Evaluation: 04:38 - Subjective Subjective: S:Requests artificial eye drops. Seen at bedside. States that she uses them at home. States that her eyes are sometimes watering. Has no other complaints. Medical record was reviewed. O:Alert ,awake. Last Vital Signs 3 Temp 98.2 F 12/12/17 16:26 Pulse 84 12/12/17 20:46 Resp 18 12/12/17 16:26 BP 135/75 12/12/17 17:21 Pulse Ox LUNGS: Normal breathing pattern. HEENT: Both eyes are wet. Pupils equal , round , regular, reactive to light. Conjunctiva: normal color. Sclera:White. A: History of dry eyes. P: Artificial tears as ordered. Objective - Vital Signs/Intake and Output Vital Signs (last 24 hours): Temp Pulse Resp BP Pulse Ox 98.2 F 84 18 135/75 12/12/17 16:26 12/12/17 20:46 12/12/17 16:26 12/12/17 17:21 - Medications Medications: Current Medications Arformoterol Tartrate (Brovana) 15 mcg IH [id number] [facility] Last Admin: 12/12/17 20:42 Dose: 15 mcg Artificial Tears (Artificial Tears) 0 ml OU BID PRN PRN Reason: Dry eyes Last Admin: 12/13/17 04:28 Dose: 1 drop Budesonide (Pulmicort Respules) 0.25 mg IH [id number] [facility] PRN Reason: Protocol Last Admin: 12/12/17 20:42 Dose: 0.25 mg Diltiazem HCl (Cardizem Cd) 120 mg PO DAILY [facility] PRN Reason: Protocol Levalbuterol HCl (Xopenex) 0.63 mg IH [id number] PRN; Protocol PRN Reason: Shortness of Breath Levofloxacin (Levaquin) 500 mg PO DAILY [facility] PRN Reason: Protocol Magnesium Oxide (Mag-Ox) 400 mg PO BID [facility] PRN Reason: Protocol Last Admin: 12/12/17 17:30 Dose: 400 mg Metoprolol Tartrate (Lopressor) 50 mg PO BID [facility] PRN Reason: Protocol Last Admin: 12/12/17 17:21 Dose: 50 mg Oxycodone/Acetaminophen (Percocet 5/325 Mg Tab) 1 tab PO Q6H PRN; Protocol PRN Reason: Pain, moderate (4-7) Stop: 12/15/17 14:28 Last Admin: 12/12/17 17:30 Dose: 1 tab Pantoprazole Sodium (Protonix Ec Tab) 40 mg PO 0600,1600 [facility] PRN Reason: Protocol Last Admin: 12/12/17 17:00 Dose: 40 mg Sucralfate (Carafate Oral Susp) 1 gm PO 0600,1600 [facility] Last Admin: 12/12/17 17:00 Dose: 1 gm
[2017-12-13] MEDS: Pantoprazole 40 mg EC Tab PO SCH ×2 (05:32→17:39)
[2017-12-13] MEDS: Sucralfate 1 gm/10 ml Oral Susp UD PO SCH ×2 (05:32→17:39)
[2017-12-13 07:19] LABS: BASO # 0.01 K/mm3 (0.0-2.0); BASO % 0.1 % (0.0-3.0); EOS # 0.5 (0.0-0.7); EOS % 3.4 % (1.5-5.0); GRAN # 10.62 (1.4-6.5); GRAN % 72.8 % (50.0-68.0); HEMOGLOBIN 8.6 g/dL (12.0-16.0); LYMPH # 1.6 (1.2-3.4); LYMPH % 11.3 % (22.0-35.0); MEAN CELL VOLUME 90.8 fl (80.0-105.0); MEAN CORPUSCULAR HEMOGLOBIN 29.5 pg (25.0-35.0); MEAN CORPUSCULAR HGB CONC 32.5 g/dl (31.0-37.0); MEAN PLATELET VOLUME 9.8 fl (7.0-11.0); MONO # 1.8 (0.1-0.6); MONO % 12.4 % (1.0-6.0); RBC 2.92 10^6/uL (3.5-6.1); WHITE BLOOD COUNT 14.6 10^3/ul (4.5-11.0)
[2017-12-13] MEDS: Arformoterol 15 mcg/2 ml Inh Sol IH SCH ×2 (07:21→20:22)
[2017-12-13] MEDS: Budesonide 0.25 mg/2 ml Inhal Susp UD IH SCH ×2 (07:21→20:22)
--- NOTE | 2017-12-13 07:57 | CP.PCM.PN ---
Subjective - Date & Time of Evaluation Date of Evaluation: 12/13/17 Time of Evaluation: 06:40 Objective - Vital Signs/Intake and Output Vital Signs (last 24 hours): Temp Pulse Resp BP Pulse Ox 98.2 F 96 H 18 152/86 H 95 12/13/17 05:47 12/13/17 05:47 12/13/17 05:47 12/13/17 05:47 12/13/17 05:47 - Medications Medications: Current Medications Arformoterol Tartrate (Brovana) 15 mcg IH [id number] [facility] Last Admin: 12/13/17 07:21 Dose: 15 mcg Artificial Tears (Artificial Tears) 0 ml OU BID PRN PRN Reason: Dry eyes Last Admin: 12/13/17 04:28 Dose: 1 drop Budesonide (Pulmicort Respules) 0.25 mg IH [id number] [facility] PRN Reason: Protocol Last Admin: 12/13/17 07:21 Dose: 0.25 mg Diltiazem HCl (Cardizem Cd) 120 mg PO DAILY [facility] PRN Reason: Protocol Levalbuterol HCl (Xopenex) 0.63 mg IH [id number] PRN; Protocol PRN Reason: Shortness of Breath Levofloxacin (Levaquin) 500 mg PO DAILY [facility] PRN Reason: Protocol Magnesium Oxide (Mag-Ox) 400 mg PO BID [facility] PRN Reason: Protocol Last Admin: 12/12/17 17:30 Dose: 400 mg Metoprolol Tartrate (Lopressor) 50 mg PO BID [facility] PRN Reason: Protocol Last Admin: 12/12/17 17:21 Dose: 50 mg Oxycodone/Acetaminophen (Percocet 5/325 Mg Tab) 1 tab PO Q6H PRN; Protocol PRN Reason: Pain, moderate (4-7) Stop: 12/15/17 14:28 Last Admin: 12/12/17 17:30 Dose: 1 tab Pantoprazole Sodium (Protonix Ec Tab) 40 mg PO 0600,1600 [facility] PRN Reason: Protocol Last Admin: 12/13/17 05:32 Dose: 40 mg Sucralfate (Carafate Oral Susp) 1 gm PO 0600,1600 [facility] Last Admin: 12/13/17 05:32 Dose: 1 gm - Labs Labs: 12/13/17 07:00
--- NOTE | 2017-12-13 08:01 | CP.PCM.CON ---
History of Present Illness - History of Present Illness History of Present Illness: Awake,alert, no distress, feels better Reason for consultation: Continuity of care in TCU, history of mitral valve repair, on atrial fibrillation and was on Eliquis, GI bleeding Brief history of present illness: A 62 year old female who initially came to ER due to tarry stools. Hemoglobin at that time was 6.7. She was transfused PRBC's and platelets. Endoscopy showed gastric peptic ulcer. Stabilized GI bleeding.Stabilized hemoglobin. She also had complaints of knee swelling which Dr. Vines was consulted and steroid injection to both knees were done with resolution (gout). Urinary tract infection and given antibiotics at that time. Eliquis was discontinued and started on Heparin drip for atrial fibrillation. She was transferred to TCU for reconditioning. At TCU, no further episodes of tarry stools and Heparin was transitioned to Coumadin. Coumadin as we can monitor INR however had another episode of GI bleeding thus was sent to ER and subsequently to ICU. Transfused PRBC's in ICU, stabilized hemoglobin and hematocrit. Transferred again to TCU for reconditioning. History of Mitral valve repair,hypertension,atrial fibrillation,CHF,COPD, hyperlipidemia,anemia, falls,cholecystectomy, ESBL in urine Seen and examined by me and Dr. Beebe Review of Systems - Constitutional Constitutional: As Per HPI - EENT Eyes: Dry Eye - Cardiovascular Cardiovascular: As Per HPI - Respiratory Respiratory: As Per HPI - Gastrointestinal Gastrointestinal: As Per HPI - Musculoskeletal Musculoskeletal: As Per HPI Past Patient History - Infectious Disease Hx of Infectious Diseases: None - Tetanus Immunizations Tetanus Immunization: Unknown - Past Social History Smoking Status: Never Smoked - CARDIAC Hx Cardiac Disorders: Yes (Mitral Valve Repair.) Hx Congestive Heart Failure: Yes Hx Hypercholesterolemia: Yes Hx Hypertension: Yes - PULMONARY Hx Chronic Obstructive Pulmonary Disease (COPD): Yes - NEUROLOGICAL Hx Neurological Disorder: Yes Hx Dizziness: Yes Hx Migraine: Yes - HEENT Hx HEENT Problems: No - RENAL Hx Chronic Kidney Disease: No - ENDOCRINE/METABOLIC Hx Endocrine Disorders: No - HEMATOLOGICAL/ONCOLOGICAL Hx Blood Disorders: Yes (H/o blood transfusions.) Hx Anemia: Yes - INTEGUMENTARY Hx Dermatological Problems: No - MUSCULOSKELETAL/RHEUMATOLOGICAL Hx Falls: Yes (past) - GASTROINTESTINAL Hx Gastrointestinal Disorders: Yes (gi bleed, black stools) - GENITOURINARY/GYNECOLOGICAL Hx Genitourinary Disorders: Yes (hx esbl urine 12/03/17) Hx Reproductive Disorders: No - PSYCHIATRIC Hx Substance Use: No (Denied by pt.) - SURGICAL HISTORY Hx Surgeries: Yes Hx Cardiac Catheterization: Yes Hx Cholecystectomy: Yes Hx Open Heart Surgery: Yes (Mitral Valve Repair.) Hx Orthopedic Surgery: Yes (B/L Bunion Sx; Left Carpal Tunnel Sx.) - ANESTHESIA Hx Anesthesia: No Hx Anesthesia Reactions: No Hx Malignant Hyperthermia: No Meds Allergies/Adverse Reactions: Allergies Allergy/AdvReac Type Severity Reaction Status Date / Time cinnamon Allergy Intermediate ANAPHYLAXIS Verified 12/07/17 21:48 - Medications Medications: Current Medications Arformoterol Tartrate (Brovana) 15 mcg IH [id number] [facility] Last Admin: 12/13/17 07:21 Dose: 15 mcg Artificial Tears (Artificial Tears) 0 ml OU BID PRN PRN Reason: Dry eyes Last Admin: 12/13/17 04:28 Dose: 1 drop Budesonide (Pulmicort Respules) 0.25 mg IH [id number] [facility] PRN Reason: Protocol Last Admin: 12/13/17 07:21 Dose: 0.25 mg Diltiazem HCl (Cardizem Cd) 120 mg PO DAILY [facility] PRN Reason: Protocol Levalbuterol HCl (Xopenex) 0.63 mg IH [id number] PRN; Protocol PRN Reason: Shortness of Breath Levofloxacin (Levaquin) 500 mg PO DAILY [facility] PRN Reason: Protocol Magnesium Oxide (Mag-Ox) 400 mg PO BID [facility] PRN Reason: Protocol Last Admin: 12/12/17 17:30 Dose: 400 mg Metoprolol Tartrate (Lopressor) 50 mg PO BID [facility] PRN Reason: Protocol Last Admin: 12/12/17 17:21 Dose: 50 mg Oxycodone/Acetaminophen (Percocet 5/325 Mg Tab) 1 tab PO Q6H PRN; Protocol PRN Reason: Pain, moderate (4-7) Stop: 12/15/17 14:28 Last Admin: 12/12/17 17:30 Dose: 1 tab Pantoprazole Sodium (Protonix Ec Tab) 40 mg PO 0600,1600 [facility] PRN Reason: Protocol Last Admin: 12/13/17 05:32 Dose: 40 mg Sucralfate (Carafate Oral Susp) 1 gm PO 0600,1600 [facility] Last Admin: 12/13/17 05:32 Dose: 1 gm Physical Exam - Constitutional Appears: No Acute Distress - Head Exam Head Exam: NORMOCEPHALIC - Eye Exam Additional comments: dry - ENT Exam ENT Exam: Mucous Membranes Moist - Respiratory Exam Respiratory Exam: Decreased Breath Sounds, NORMAL BREATHING PATTERN - Cardiovascular Exam Cardiovascular Exam: +S1, +S2 - GI/Abdominal Exam GI & Abdominal Exam: Normal Bowel Sounds, Soft - Extremities Exam Extremities exam: Positive for: normal capillary refill Additional comments: 1+ knee swelling - Neurological Exam Neurological exam: Alert, Oriented x3 - Psychiatric Exam Psychiatric exam: Normal Affect, Normal Mood - Skin Skin Exam: Intact, Normal Color, Warm Results - Vital Signs Recent Vital Signs: Last Vital Signs Temp 98.2 F 12/13/17 05:47 Pulse 96 H 12/13/17 05:47 Resp 18 12/13/17 05:47 BP 152/86 H 12/13/17 05:47 Pulse Ox 95 12/13/17 05:47 - Labs Result Diagrams: 12/13/17 07:00 Labs: Laboratory Results - last 24 hr 12/13/17 07:00 WBC 14.6 H RBC 2.92 L Hgb 8.6 L Hct 26.5 L MCV 90.8 MCH 29.5 MCHC 32.5 RDW 15.0 H Plt Count 397 MPV 9.8 Gran % 72.8 H Lymph % (Auto) 11.3 L Garland % (Auto) 12.4 H Eos % (Auto) 3.4 Baso % (Auto) 0.1 Gran # 10.62 H Lymph # (Auto) 1.6 Garland # (Auto) 1.8 H Eos # (Auto) 0.5 Baso # (Auto) 0.01 Assessment & Plan - Assessment and Plan (Free Text) Assessment: A 62 year old female who initially came to ER due to tarry stools. Hemoglobin at that time was 6.7. She was transfused PRBC's and platelets. Endoscopy showed gastric peptic ulcer. Stabilized GI bleeding.Stabilized hemoglobin. She also had complaints of knee swelling which Dr. Vines was consulted and steroid injection to both knees were done with resolution (gout). Urinary tract infection and given antibiotics at that time. Eliquis was discontinued and started on Heparin drip for atrial fibrillation. She was transferred to TCU for reconditioning. At TCU, no further episodes of tarry stools and Heparin was transitioned to Coumadin. Coumadin as we can monitor INR however had another episode of GI bleeding thus was sent to ER and subsequently to ICU. Transfused PRBC's in ICU, stabilized hemoglobin and hematocrit. Transferred again to TCU for reconditioning.History of Mitral valve repair,hypertension,atrial fibrillation,CHF,COPD,hyperlipidemia,anemia, falls,cholecystectomy, ESBL in urine. Plan: Transferred to TCU for reconditioning Physical therapy Hold any anticoagulation for now due to GI bleeding Last EKG normal sinus rhythm Recommend ablation if atrial fibrillation reoccurs Will follow up closely Continue current medications Continue current treatment Will follow up Plan and treatment discussed with Dr. Beebe Thank you Dr. Guerra for the opportunity of taking care of Ms. Dariana Mcgregor - Date & Time Date: 12/13/17 Time: 06:40
[2017-12-13 08:04] LABS: ALB/GLOB RATIO 1.1 (1.1-1.8); ALBUMIN 3.3 g/dL (3.0-4.8); ALT/SGPT 19 U/L (7-56); AST/SGOT 22 U/L (14-36); BLOOD UREA NITROGEN 7 mg/dL (7-21); GFR AFRICAN-AMERICAN > 60; GFR NON-AFRICAN AMERICAN > 60
[2017-12-13] MEDS: Oxycodone/Acetaminophen 5/325 mg Tab PO PRN (09:39)
[2017-12-13] MEDS: diltiaZEM 120 mg/24 Hours CD Cap PO SCH (09:40)
[2017-12-13] MEDS: levoFLOXacin 500 MG TAB PO SCH (09:40)
[2017-12-13] MEDS: Magnesium Oxide 400 mg Tab UD PO SCH ×2 (09:40→17:41)
--- NOTE | 2017-12-13 10:36 | CP.PCM.PN ---
Subjective - Date & Time of Evaluation Date of Evaluation: 12/13/17 Time of Evaluation: 09:00 - Subjective Subjective: Heme-Onc Progress note for Dr. Mcdaniel Patient seen and examined OOB to chair. Reported she felt much better today and having a fan in the room was helping her not feel as hot. Nursing reported no acute events overnight. Patient did complain of some epigastric abdominal pain and reflux especially when lying down flat. Denied acute complaints of fever, chills, headache, dizziness, chest pain, palpitations, SOB, cough, nausea, vomiting, bowel/bladder complaints, pain/swelling in her legs bilaterally. Patient is having regular BM and denied any blood/melena in her stool. Objective - Vital Signs/Intake and Output Vital Signs (last 24 hours): Temp Pulse Resp BP Pulse Ox 98.2 F 96 H 18 152/86 H 95 12/13/17 05:47 12/13/17 05:47 12/13/17 05:47 12/13/17 05:47 12/13/17 05:47 - Medications Medications: Current Medications Arformoterol Tartrate (Brovana) 15 mcg IH [id number] [facility] Last Admin: 12/13/17 07:21 Dose: 15 mcg Artificial Tears (Artificial Tears) 0 ml OU BID PRN PRN Reason: Dry eyes Last Admin: 12/13/17 04:28 Dose: 1 drop Budesonide (Pulmicort Respules) 0.25 mg IH [id number] [facility] PRN Reason: Protocol Last Admin: 12/13/17 07:21 Dose: 0.25 mg Diltiazem HCl (Cardizem Cd) 120 mg PO DAILY [facility] PRN Reason: Protocol Last Admin: 12/13/17 09:40 Dose: 120 mg Levalbuterol HCl (Xopenex) 0.63 mg IH [id number] PRN; Protocol PRN Reason: Shortness of Breath Levofloxacin (Levaquin) 500 mg PO DAILY [facility] PRN Reason: Protocol Last Admin: 12/13/17 09:40 Dose: 500 mg Magnesium Oxide (Mag-Ox) 400 mg PO BID [facility] PRN Reason: Protocol Last Admin: 12/13/17 09:40 Dose: 400 mg Metoprolol Tartrate (Lopressor) 50 mg PO BID [facility] PRN Reason: Protocol Last Admin: 12/13/17 09:40 Dose: 50 mg Oxycodone/Acetaminophen (Percocet 5/325 Mg Tab) 1 tab PO Q6H PRN; Protocol PRN Reason: Pain, moderate (4-7) Stop: 12/15/17 14:28 Last Admin: 12/13/17 09:39 Dose: 1 tab Pantoprazole Sodium (Protonix Ec Tab) 40 mg PO 0600,1600 [facility] PRN Reason: Protocol Last Admin: 12/13/17 05:32 Dose: 40 mg Sucralfate (Carafate Oral Susp) 1 gm PO 0600,1600 [facility] Last Admin: 12/13/17 05:32 Dose: 1 gm - Labs Labs: 12/13/17 07:00 12/13/17 07:00 - Constitutional Appears: Non-toxic, No Acute Distress - Head Exam Head Exam: ATRAUMATIC, NORMAL INSPECTION, NORMOCEPHALIC - Eye Exam Eye Exam: EOMI, Normal appearance, PERRL. absent: Conjunctival injection, Scleral icterus - ENT Exam ENT Exam: Mucous Membranes Moist - Neck Exam Neck Exam: Full ROM, Normal Inspection - Respiratory Exam Respiratory Exam: Clear to Ausculation Bilateral, NORMAL BREATHING PATTERN. absent: Accessory Muscle Use, Rales, Rhonchi, Wheezes, Respiratory Distress - Cardiovascular Exam Cardiovascular Exam: +S1, +S2 - GI/Abdominal Exam GI & Abdominal Exam: Soft, Normal Bowel Sounds. absent: Tenderness - Rectal Exam Rectal Exam: Deferred - Extremities Exam Extremities Exam: Normal Inspection. absent: Pedal Edema, Tenderness - Neurological Exam Neurological Exam: Alert, Awake, CN II-XII Intact, Oriented x3 - Psychiatric Exam Psychiatric exam: Normal Affect, Normal Mood - Skin Skin Exam: Dry, Intact, Normal Color, Warm Assessment and Plan - Assessment and Plan (Free Text) Assessment: 62yo female PMHx A-fib on coumadin, mitral valve repair (severe mitral regurgitation s/p open heart surgery and repair with MVR biprosthetic), CAD, COPD was transferred from TCU to MICU for rectal bleed on 12/07. Patient is s/p 2U PRBC, 1U FFP. s/p EGD showing 1cm nonbleeding ulcer ([employer] Class III). Patient currently seen back in TCU. H&H stable. Anticoag discontinued as per cardio and ASA on hold for 1 month. Recommend radiofrequency ablation at [facility]. GI Dr. Ramirez on board- appreciate reccs. Cardio Dr. Beebe on board- appreciate reccs. f/u iron panel. Continue PPI therapy. VS and Labs reviewed. Continue management as per primary. Discussed with attending Tonia Cedillo PGY2
[2017-12-13] MEDS ORDERED: Potassium Chloride 20 mEq ER Tab PO ONE ×2 (11:17→16:54)
--- NOTE | 2017-12-13 11:29 | RAD ---
HISTORY: SOB COMPARISON: 12/07/2017 FINDINGS: LUNGS: No active pulmonary disease. PLEURA: No significant pleural effusion identified, no pneumothorax apparent. CARDIOVASCULAR: Moderate cardiomegaly OSSEOUS STRUCTURES: Sternal wires VISUALIZED UPPER ABDOMEN: Normal. OTHER FINDINGS: None. IMPRESSION: No active disease.
--- NOTE | 2017-12-13 14:37 | CARD ---
APPROVED REPORT EKG Measurement Heart [id number] <Conclusion> Sinus rhythm with APCs Moderate voltage criteria for LVH LAD STTW changes c/w ischemia Prolonged QTc
--- NOTE | 2017-12-13 15:25 | CP.PCM.CON ---
History of Present Illness - History of Present Illness History of Present Illness: 62 year old female with PMH of atrial fibrillation, asthma, HTN, severe mitral regurgitation S/P mitral valve replacement, esophageal ulcers, carpal tunnel syndrome, COPD, dyslipidemia, S/P cholecystectomy, S/P foot surgery [place] [facility] [place]. She is also found to have UTI with Klebsiella and has improved with antibiotics. She is now transferred to [facility] for continued medical therapy and physical rehab. Infectious diseases consult is requested to continue her antibiotic therapy. She denies fever or chills, no nausea or vomiting, no chest pain, no SOB, no headache or dizziness, no abdominal pain, no diarrhea, no dysuria. Review of Systems - Review of Systems All systems: reviewed and no additional remarkable complaints except (as per HPI ) Past Patient History - Infectious Disease Hx of Infectious Diseases: None - Tetanus Immunizations Tetanus Immunization: Unknown - Past Social History Smoking Status: Never Smoked - CARDIAC Hx Cardiac Disorders: Yes (Mitral Valve Repair.) Hx Congestive Heart Failure: Yes Hx Hypercholesterolemia: Yes Hx Hypertension: Yes - PULMONARY Hx Chronic Obstructive Pulmonary Disease (COPD): Yes - NEUROLOGICAL Hx Neurological Disorder: Yes Hx Dizziness: Yes Hx Migraine: Yes - HEENT Hx HEENT Problems: No - RENAL Hx Chronic Kidney Disease: No - ENDOCRINE/METABOLIC Hx Endocrine Disorders: No - HEMATOLOGICAL/ONCOLOGICAL Hx Blood Disorders: Yes (H/o blood transfusions.) Hx Anemia: Yes - INTEGUMENTARY Hx Dermatological Problems: No - MUSCULOSKELETAL/RHEUMATOLOGICAL Hx Falls: Yes (past) - GASTROINTESTINAL Hx Gastrointestinal Disorders: Yes (gi bleed, black stools) - GENITOURINARY/GYNECOLOGICAL Hx Genitourinary Disorders: Yes (hx esbl urine 12/03/17) Hx Reproductive Disorders: No - PSYCHIATRIC Hx Substance Use: No (Denied by pt.) - SURGICAL HISTORY Hx Surgeries: Yes Hx Cardiac Catheterization: Yes Hx Cholecystectomy: Yes Hx Open Heart Surgery: Yes (Mitral Valve Repair.) Hx Orthopedic Surgery: Yes (B/L Bunion Sx; Left Carpal Tunnel Sx.) - ANESTHESIA Hx Anesthesia: No Hx Anesthesia Reactions: No Hx Malignant Hyperthermia: No Meds Allergies/Adverse Reactions: Allergies Allergy/AdvReac Type Severity Reaction Status Date / Time cinnamon Allergy Intermediate ANAPHYLAXIS Verified 12/07/17 21:48 - Medications Medications: Current Medications Arformoterol Tartrate (Brovana) 15 mcg IH [id number] [facility] Last Admin: 12/12/17 20:42 Dose: 15 mcg Budesonide (Pulmicort Respules) 0.25 mg IH [id number] [facility] PRN Reason: Protocol Last Admin: 12/12/17 20:42 Dose: 0.25 mg Diltiazem HCl (Cardizem Cd) 120 mg PO DAILY [facility] PRN Reason: Protocol Levalbuterol HCl (Xopenex) 0.63 mg IH [id number] PRN; Protocol PRN Reason: Shortness of Breath Levofloxacin (Levaquin) 500 mg PO DAILY [facility] PRN Reason: Protocol Magnesium Oxide (Mag-Ox) 400 mg PO BID [facility] PRN Reason: Protocol Last Admin: 12/12/17 17:30 Dose: 400 mg Metoprolol Tartrate (Lopressor) 50 mg PO BID [facility] PRN Reason: Protocol Last Admin: 12/12/17 17:21 Dose: 50 mg Oxycodone/Acetaminophen (Percocet 5/325 Mg Tab) 1 tab PO Q6H PRN; Protocol PRN Reason: Pain, moderate (4-7) Stop: 12/15/17 14:28 Last Admin: 12/12/17 17:30 Dose: 1 tab Pantoprazole Sodium (Protonix Ec Tab) 40 mg PO 0600,1600 [facility] PRN Reason: Protocol Last Admin: 12/12/17 17:00 Dose: 40 mg Sucralfate (Carafate Oral Susp) 1 gm PO 0600,1600 [facility] Last Admin: 12/12/17 17:00 Dose: 1 gm Physical Exam - Constitutional Appears: Non-toxic, Chronically Ill - Head Exam Head Exam: NORMAL INSPECTION - ENT Exam ENT Exam: Mucous Membranes Moist - Neck Exam Neck exam: Negative for: Meningismus - Respiratory Exam Respiratory Exam: Decreased Breath Sounds - Cardiovascular Exam Cardiovascular Exam: +S1, +S2 - GI/Abdominal Exam GI & Abdominal Exam: Soft. absent: Tenderness Results - Vital Signs Recent Vital Signs: Last Vital Signs Temp 98.2 F 12/12/17 16:26 Pulse 84 12/12/17 20:46 Resp 18 12/12/17 16:26 BP 135/75 12/12/17 17:21 Pulse Ox - Labs Result Diagrams: 12/13/17 07:00 12/13/17 07:00 Assessment & Plan - Assessment and Plan (Free Text) Plan: Assessment ESBL Klebsiella complicated UTI with Myers catheter - now the Klebsiella is sensitive to Quinolones GI bleeding chronic CHF severe mitral regurgitation S/P mitral valve replacement atrial fibrillation asthma HTN esophageal ulcers carpal tunnel syndrome COPD dyslipidemia atrial fibrillation S/P cholecystectomy S/P foot surgery Plan QTc is less than 500 ms - continue PO Levaquin (day 4 total) to complete 5-7 days total antibiotics will continue to monitor clinically
--- NOTE | 2017-12-13 17:16 | CP.PCM.PN ---
Subjective - Date & Time of Evaluation Date of Evaluation: 12/13/17 Time of Evaluation: 10:35 - Subjective Subjective: Seen and examined at the bedside earlier today, chart reviewed. Patient complained of having some shortness of breath, nasal cannula applied but also complained of some chest heaviness. Patient also return from PT. The patient also reporting that she was concerned about her anticoagulation. Patient status post GI bleed with gastric cratered ulcer. Patient denies nausea vomiting or abdominal pain. No reports of melena or bright red blood per rectum. Objective - Vital Signs/Intake and Output Vital Signs (last 24 hours): Temp Pulse Resp BP Pulse Ox 98.2 F 109 H 18 152/86 H 95 12/13/17 05:47 12/13/17 10:21 12/13/17 05:47 12/13/17 05:47 12/13/17 05:47 - Medications Medications: Current Medications Arformoterol Tartrate (Brovana) 15 mcg IH [id number] [facility] Last Admin: 12/13/17 07:21 Dose: 15 mcg Artificial Tears (Artificial Tears) 0 ml OU BID PRN PRN Reason: Dry eyes Last Admin: 12/13/17 04:28 Dose: 1 drop Budesonide (Pulmicort Respules) 0.25 mg IH [id number] [facility] PRN Reason: Protocol Last Admin: 12/13/17 07:21 Dose: 0.25 mg Clonazepam (Klonopin) 0.5 mg PO BID PRN; Protocol PRN Reason: Anxiety Stop: 12/19/17 11:18 Diltiazem HCl (Cardizem Cd) 120 mg PO DAILY [facility] PRN Reason: Protocol Last Admin: 12/13/17 09:40 Dose: 120 mg Furosemide (Lasix) 40 mg PO DAILY [facility] Levalbuterol HCl (Xopenex) 0.63 mg IH [id number] PRN; Protocol PRN Reason: Shortness of Breath Levofloxacin (Levaquin) 500 mg PO DAILY [facility] PRN Reason: Protocol Last Admin: 12/13/17 09:40 Dose: 500 mg Magnesium Oxide (Mag-Ox) 400 mg PO BID [facility] PRN Reason: Protocol Last Admin: 12/13/17 09:40 Dose: 400 mg Metoprolol Tartrate (Lopressor) 50 mg PO BID [facility] PRN Reason: Protocol Last Admin: 12/13/17 09:40 Dose: 50 mg Oxycodone/Acetaminophen (Percocet 5/325 Mg Tab) 1 tab PO Q6H PRN; Protocol PRN Reason: Pain, moderate (4-7) Stop: 12/15/17 14:28 Last Admin: 12/13/17 09:39 Dose: 1 tab Pantoprazole Sodium (Protonix Ec Tab) 40 mg PO 0600,1600 [facility] PRN Reason: Protocol Last Admin: 12/13/17 05:32 Dose: 40 mg Potassium Chloride (Klor-Con 10) 10 meq PO 0800 [facility] Sucralfate (Carafate Oral Susp) 1 gm PO 0600,1600 [facility] Last Admin: 12/13/17 05:32 Dose: 1 gm - Labs Labs: 12/13/17 07:00 12/13/17 07:00 - Constitutional Appears: No Acute Distress - Eye Exam Eye Exam: Normal appearance - ENT Exam ENT Exam: Mucous Membranes Moist - Neck Exam Neck Exam: Normal Inspection - Respiratory Exam Respiratory Exam: NORMAL BREATHING PATTERN. absent: Rales, Wheezes, Respiratory Distress - Cardiovascular Exam Cardiovascular Exam: +S1, +S2 - GI/Abdominal Exam GI & Abdominal Exam: Soft, Normal Bowel Sounds. absent: Guarding, Tenderness, Organomegaly, Rebound - Extremities Exam Extremities Exam: absent: Calf Tenderness - Neurological Exam Neurological Exam: Alert, Awake, Oriented x3 - Skin Skin Exam: Dry, Warm Assessment and Plan - Assessment and Plan (Free Text) Assessment: Assessment: Chest heaviness/SOB, CXR negative, EGK no acute changes, maybe secondary to anxiety GI bleed, s/p repeat EGD showed 1cm non-bleeding ulcer ([employer] Class III). UTI Diarrhea- resolved A.fib (anticoagulation on hold) CAD Mitral Valve repair Plan: Hgb is stable, continue to monitor Continue high dose PPI soft heart healthy diet. As per Dr. Beebe, he does not want patient to be on anti-coagulation due to high risk of bleeding Hematology also is on consult for history of bleeding with anticoagulation on antibiotics for UTI request stat EKG and CXR, spoke to nursing notify cardiology and PCP, as per nursing cardiology aware and given a dose of Klonopin prn for anxiety. Seen and discussed with Dr. Ramirez.
[2017-12-13 17:46] LABS: IRON 16 ug/dL (45-180)
[2017-12-13] MEDS ORDERED: Darbepoetin Alfa 100 mcg/ml Inj SC ONE (17:46)
[2017-12-13 17:56] LABS: % IRON SATURATION 7 % (20-55); TOTAL IRON BINDING CAPACITY 244 ug/dL (265-497)
--- NOTE | 2017-12-13 22:06 | PN ---
DATE: 12/13/2017 PULMONARY PROGRESS NOTE REFERRING PHYSICIAN: Baltazar Guerra MD SUBJECTIVE: She is out of bed to reclining chair. Night was unremarkable. 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 Presently feels better. No chest pain. No nausea, no vomiting, no diarrhea. No leg pain or leg swelling. OBJECTIVE: GENERAL: In no distress. VITAL SIGNS: Temperature is 98, heart rate 65, respiratory rate is 20, blood pressure 122/81, pulse ox 96% room air. HEENT: Moist mucous membranes. Crowded airway. Mallampati score is 4. NECK: Supple. No JVD. LUNGS: Have fair airflow with rhonchi. HEART: S1 and S2. ABDOMEN: Soft, nontender. No organomegaly. EXTREMITIES: No edema. NEUROLOGIC: Awake and alert. Follows simple command. MEDICATIONS: Shows she is on artificial tears both eyes twice a day p.r.n., Brovana inhaled twice a day, Carafate 1 g twice a day, Cardizem CD 120 mg daily, Klonopin 0.5 mg twice a day p.r.n., potassium 10 mEq daily, Lasix 40 mg daily, Levaquin 500 mg daily, metoprolol tartrate 50 mg twice a day, magnesium oxide 400 mg twice a day, Percocet 5/325 one tablet every 6 hours p.r.n., Protonix 40 mg daily, Pulmicort inhaled twice a day, also getting Xopenex inhaled every 6 hours p.r.n. LABORATORY DATA: Shows hemoglobin 8.6, hematocrit 26.5, WBC 14.6, platelet is 397. Sodium 137, potassium 3.6, chloride 100, bicarbonate 26, BUN 7, creatinine 0.9, calcium is 9, total bili 0.2, AST 22, ALT 19, albumin is 3.3. Has a chest x-ray done this morning, shows no active pulmonary infiltrate. IMPRESSION AND PLAN: Status post gastrointestinal bleed, had recurrent gastric ulcers, but at the time of esophagogastroduodenoscopy, there is no bleeding at that time requiring transfusion, history of coagulopathy requiring reversal of INR because of Coumadin, has atrial fibrillation, coronary artery disease, chronic obstructive lung disease, suspected sleep apnea syndrome, being treated for urinary tract infection at present time. Case discussed with nursing staff. Also spoke to nurse and the patient in detail. She understands the risk of thromboembolic disease and atrial fibrillation, and also understands risk of gastrointestinal bleed with anticoagulation. We will leave the decision for Cardiology to make. We will start the patient on supplemental iron and also give a bone marrow stimulant to effort to improve hemoglobin dropped to 10 or so. As outpatient, will need sleep study, also need pulmonary function tests. Try to keep heart rate below 80 if we can to decrease the risk of thromboembolic disease. Thank you and we will follow with you. Brittany Arciniega MD
[2017-12-14] MEDS: Oxycodone/Acetaminophen 5/325 mg Tab PO PRN ×2 (02:22→21:13)
[2017-12-14] MEDS: Sucralfate 1 gm/10 ml Oral Susp UD PO SCH ×2 (05:32→17:31)
[2017-12-14] MEDS: Pantoprazole 40 mg EC Tab PO SCH ×2 (06:48→17:31)
[2017-12-14] MEDS: Arformoterol 15 mcg/2 ml Inh Sol IH SCH ×2 (07:27→21:23)
[2017-12-14] MEDS: Budesonide 0.25 mg/2 ml Inhal Susp UD IH SCH ×2 (07:27→21:24)
[2017-12-14] MEDS: Potassium Chloride 10 mEq ER Tab PO SCH (08:08)
--- NOTE | 2017-12-14 09:38 | CP.PCM.PN ---
Subjective - Date & Time of Evaluation Date of Evaluation: 12/14/17 Time of Evaluation: 07:15 - Subjective Subjective: Out of bed to chair,awake,alert, no distress, feels better Reason for consultation and follow up: Continuity of care in TCU, history of mitral valve repair, on atrial fibrillation and was on Eliquis, GI bleeding, hypertension,CHF,COPD,hyperlipidemia,anemia, falls,cholecystectomy, ESBL in urine. Seen and examined by me and Dr. Beebe Objective - Vital Signs/Intake and Output Vital Signs (last 24 hours): Temp Pulse Resp BP Pulse Ox 98.7 F 65 20 122/81 96 12/13/17 16:00 12/13/17 17:40 12/13/17 16:00 12/13/17 17:40 12/13/17 16:00 - Medications Medications: Current Medications Arformoterol Tartrate (Brovana) 15 mcg IH [id number] [facility] Last Admin: 12/14/17 07:27 Dose: 15 mcg Artificial Tears (Artificial Tears) 0 ml OU BID PRN PRN Reason: Dry eyes Last Admin: 12/13/17 04:28 Dose: 1 drop Budesonide (Pulmicort Respules) 0.25 mg IH [id number] [facility] PRN Reason: Protocol Last Admin: 12/14/17 07:27 Dose: 0.25 mg Clonazepam (Klonopin) 0.5 mg PO BID PRN; Protocol PRN Reason: Anxiety Stop: 12/19/17 11:18 Diltiazem HCl (Cardizem Cd) 120 mg PO DAILY [facility] PRN Reason: Protocol Last Admin: 12/13/17 09:40 Dose: 120 mg Furosemide (Lasix) 40 mg PO DAILY [facility] Iron Sucrose 100 mg/ Sodium (Chloride) 105 mls @ 210 mls/hr IV DAILY [facility] Levalbuterol HCl (Xopenex) 0.63 mg IH [id number] PRN; Protocol PRN Reason: Shortness of Breath Levofloxacin (Levaquin) 500 mg PO DAILY [facility] PRN Reason: Protocol Last Admin: 12/13/17 09:40 Dose: 500 mg Magnesium Oxide (Mag-Ox) 400 mg PO BID [facility] PRN Reason: Protocol Last Admin: 12/13/17 17:41 Dose: 400 mg Metoprolol Tartrate (Lopressor) 50 mg PO BID [facility] PRN Reason: Protocol Last Admin: 12/13/17 17:40 Dose: 50 mg Oxycodone/Acetaminophen (Percocet 5/325 Mg Tab) 1 tab PO Q6H PRN; Protocol PRN Reason: Pain, moderate (4-7) Stop: 12/15/17 14:28 Last Admin: 12/14/17 02:22 Dose: 1 tab Pantoprazole Sodium (Protonix Ec Tab) 40 mg PO 0600,1600 [facility] PRN Reason: Protocol Last Admin: 12/14/17 06:48 Dose: 40 mg Potassium Chloride (Klor-Con 10) 10 meq PO 0800 [facility] Last Admin: 12/14/17 08:08 Dose: 10 meq Sucralfate (Carafate Oral Susp) 1 gm PO 0600,1600 [facility] Last Admin: 12/14/17 05:32 Dose: 1 gm - Labs Labs: 12/13/17 07:00 12/13/17 07:00 - Constitutional Appears: No Acute Distress - Head Exam Head Exam: NORMOCEPHALIC - Eye Exam Eye Exam: Normal appearance - Respiratory Exam Respiratory Exam: Decreased Breath Sounds, NORMAL BREATHING PATTERN - Cardiovascular Exam Cardiovascular Exam: +S1, +S2 - GI/Abdominal Exam GI & Abdominal Exam: Soft, Normal Bowel Sounds - Extremities Exam Extremities Exam: Normal Capillary Refill Additional comments: no knee swelling - Neurological Exam Neurological Exam: Alert, Awake, Oriented x3 - Psychiatric Exam Psychiatric exam: Normal Affect, Normal Mood - Skin Skin Exam: Intact, Normal Color, Warm Assessment and Plan - Assessment and Plan (Free Text) Assessment: A 62 year old female who initially came to ER due to tarry stools. Hemoglobin at that time was 6.7. She was transfused PRBC's and platelets. Endoscopy showed gastric peptic ulcer. Stabilized GI bleeding.Stabilized hemoglobin. She also had complaints of knee swelling which Dr. Vines was consulted and steroid injection to both knees were done with resolution (gout). Urinary tract infection and given antibiotics at that time. Eliquis was discontinued and started on Heparin drip for atrial fibrillation. She was transferred to TCU for reconditioning. At TCU, no further episodes of tarry stools and Heparin was transitioned to Coumadin. Coumadin as we can monitor INR however had another episode of GI bleeding thus was sent to ER and subsequently to ICU. Transfused PRBC's in ICU, stabilized hemoglobin and hematocrit. Transferred again to TCU for reconditioning.History of Mitral valve repair,hypertension,atrial fibrillation,CHF,COPD,hyperlipidemia,anemia, falls,cholecystectomy, ESBL in urine. Plan: OOB to chair Transferred to TCU for reconditioning Physical therapy Hold any anticoagulation for now due to GI bleeding Episode of chest heaviness and shortness of breath yesterday Chest x ray unremarkable EKG normal sinus rhythm with APC's Cardiac status stable, controlled heart and blood pressure Recommend ablation if atrial fibrillation reoccurs Will follow up closely Monitor for GI bleeding Continue current medications Continue current treatment Discharge planning Will follow up Plan and treatment discussed with Dr. Beebe
[2017-12-14] MEDS ORDERED: Iron Sucrose 100 mg/5 ml Inj IVP SCH (10:00)
[2017-12-14] MEDS: diltiaZEM 120 mg/24 Hours CD Cap PO SCH (10:18)
[2017-12-14] MEDS: levoFLOXacin 500 MG TAB PO SCH (10:19)
[2017-12-14] MEDS: Magnesium Oxide 400 mg Tab UD PO SCH ×2 (10:20→17:31)
[2017-12-14] MEDS ORDERED: Potassium Chloride 20 mEq ER Tab PO ONE (11:08)
[2017-12-14 12:45] LABS: HEMOGLOBIN 7.9 g/dL (12.0-16.0); MEAN CELL VOLUME 90.6 fl (80.0-105.0); MEAN CORPUSCULAR HEMOGLOBIN 29.7 pg (25.0-35.0); MEAN CORPUSCULAR HGB CONC 32.8 g/dl (31.0-37.0); MEAN PLATELET VOLUME 9.7 fl (7.0-11.0); RBC 2.66 10^6/uL (3.5-6.1); WHITE BLOOD COUNT 9.4 10^3/ul (4.5-11.0)
[2017-12-14 12:57] LABS: ALB/GLOB RATIO 1.1 (1.1-1.8); ALBUMIN 3.5 g/dL (3.0-4.8); ALT/SGPT 23 U/L (7-56); AST/SGOT 20 U/L (14-36); BLOOD UREA NITROGEN 7 mg/dL (7-21); CALCIUM 9.2 mg/dL (8.4-10.5); GFR AFRICAN-AMERICAN > 60; GFR NON-AFRICAN AMERICAN > 60
--- NOTE | 2017-12-14 14:47 | PN ---
DATE: 12/14/2017 This is [facility] visit on TCU. For, Dr. Jimenez. SUBJECTIVE: The patient is a 62-year-old female, seen lying awake in bed, having her lunch, with Dr. Ramirez having just seen the patient. The patient is in no acute distress and is participating with TCU protocols. She is status post transfusion of 5 units of packed red blood cells, 3 on previous admission and 2 after readmission to the intensive care unit for continued bleeding after ulcer was diagnosed on EGD by Dr. Ramirez with no active bleeding then. The patient needed to be restarted on low-flow heparin which was then transitioned to Coumadin with a supratherapeutic INR noted to be obtained with the patient then dropping her hemoglobin. At present, she is now recommended as per Dr. Beebe not to have any anticoagulation at all including aspirin, Eliquis, which she was on prior to admission. No Coumadin. No heparin with allowance for her GI bleed to heal with medications as per Dr. Ramirez with the risks and benefits outlined to the patient as per Dr. Beebe. The patient's hemoglobin now was checked this morning with a value of 7.9, with patient now having received Aranesp and IV iron as per Dr. Arciniega as the percent saturation of iron is now 7%. OBJECTIVE PHYSICAL EXAMINATION: VITAL SIGNS: Temperature is 97.8. pulse 98 respirations 20, blood pressure 100/61, pulse ox 95%. HEENT: Unremarkable. NECK: Supple. HEART: Irregularly irregular with controlled rate. LUNGS: Rare rhonchi. ABDOMEN: Soft. Nontender. EXTREMITIES: No edema. SKIN: Warm and dry. NEUROLOGIC: Awake and alert. LABORATORY DATA: The patient's labs were done this morning. White blood cell count of 9.4, hemoglobin 7.9, down from 8.6 yesterday. Hematocrit is 24.1, platelet count of 381,000 with a chem metabolic panel completely within normal range, however, her percent saturation of iron yesterday was 7%. Her most recent INR was 1.47 done 2 days prior. Her stool for occult blood was positive on 12/11/2017 when she was in the intensive care unit. It should be noted that the patient was transferred from the intensive care unit to transitional care, a fact which we were just made aware of rather in transition from the medical floor after being downgraded from the intensive care unit. ASSESSMENT AND PLAN: For this patient is that of symptomatic anemia, status post transfusion of 5 units of packed red blood cells, recently diagnosed antral ulcer, gastrointestinal bleed, paroxysmal atrial fibrillation, mitral valve regurgitation with bioprosthetic valve, coronary artery disease, chronic obstructive pulmonary disease, urinary tract infection history, deconditioning, degenerative joint disease of the knee , status post joint injection, gouty arthritis, hypertension. PLAN: The plan for this patient after conversation with Tony Rivera and Dr. Beebe, Dr. Ramirez, is to continue the present medical regimen which includes Carafate, Protonix, IV iron and Aranesp, which was given yesterday. Also, she is taking Brovana, Miralax, diltiazem CD, potassium, Klonopin, Lasix, Levaquin, Lopressor, magnesium oxide, Percocet, Pulmicort and Xopenex. The patient's labs will be checked again in the morning with consultants recommendations to be implanted including no anticoagulants for the time being with the patient being monitored clinically and with labs. This is a complex patient with comprehensive, medically necessary and appropriate visit carried out in excess of 30 minutes [id number] time with discussions held with doctors as listed above, along with nursing staff and the patient's questions were answered to her satisfaction. Larry Mcdaniel MD
--- NOTE | 2017-12-14 21:17 | PN ---
DATE: 12/14/2017 PULMONARY PROGRESS NOTE REFERRING PHYSICIAN: Baltazar Guerra MD SUBJECTIVE: The patient is sitting up in a reclining chair. Family is at bedside. Night was unremarkable. No headache. No rhinitis. Cough is better. No nausea. No vomiting. No melena. No leg pain or leg swelling. OBJECTIVE: GENERAL: In no acute distress. VITAL SIGNS: Temperature is 98, heart rate 83, respiratory rate is 20, blood pressure 134/83, pulse ox 95% on room air. HEENT: Moist mucous membranes. Crowded airway. NECK: Supple. No JVD. LUNGS: Have a fair airflow with few rhonchi. HEART: S1 and S2. ABDOMEN: Soft, nontender. No organomegaly. EXTREMITIES: There is no edema. NEUROLOGICAL: Awake and alert. Follows simple command. MEDICATIONS: She is on artificial tears to both eyes, Brovana inhaled twice a day, Carafate 1 g twice a day, Cardizem CD 120 mg daily, iron IV daily, Klonopin 0.5 mg twice a day p.r.n., potassium 10 mEq daily, Lasix 40 mg daily, Levaquin 500 mg daily, metoprolol tartrate 50 mg twice a day, mag oxide 400 mg twice a day, Percocet 5/325 one tablet every 6 hours p.r.n., Protonix 40 mg twice a day, Pulmicort inhaled twice a day, Xopenex inhaled every 6 hours p.r.n. LABORATORY DATA: Shows hemoglobin 7.9, hematocrit 24.1, WBC 9.4, platelet is 381. Sodium 137, potassium 4.2, chloride 100, bicarbonate is 27, BUN 7, creatinine 0.9, glucose 107, calcium 9.2, magnesium 1.7. Iron is 16, AST 20, ALT 23, alkaline phosphatase is 86. IMPRESSION AND PLAN: Status post gastrointestinal bleed. Has a recurrent gastric ulcer status post esophagogastroduodenoscopy showing nonbleeding gastric ulcer, atrial fibrillation, coronary artery disease, chronic obstructive lung disease, suspected sleep apnea syndrome, urinary tract infection, severe anemia. The patient is off all anticoagulation. Considering risk and benefit ratio of recurrent bleed and hemorrhagic shock, we will control the heart rate under 80, being followed by Hematology. Receiving IV iron and hopefully we will get Aranesp to improve some of the H and H. Keep head elevated at 45 degrees. Bronchodilator. Sleep apnea precaution. Fall precaution. Continue therapy. Thank you and we will follow with you. Brittany Arciniega MD
--- NOTE | 2017-12-15 01:22 | CON ---
DATE: HISTORY OF PRESENT ILLNESS: The patient is a 62-year-old female who is currently on for continued medical therapy and physical rehab. She was referred to medical consultation for the patient's medical history. Psychiatry was consulted for anxiety. I reviewed the patient's notes and met with the patient at bedside. The patient was not aware that psychiatric consultation was called. She denies any depression. She does indicate her mood has been up and down only because she is anxious to go home, as she feels like it has been a very long hospitalization. The patient reports that she is frustrated and patient leaves, but she does want to improve and she talks full about improvement in her medical status, the patient indicates plans to cooperative with medical staff in this regard. She denies any hopelessness. She denies any hallucination. She does not appear to be responding to internal stimuli. Affect is generally appropriately reactive. Delusions were not elicited. She denies having any panic attacks. Her speech is restless, but whether she is in the hospital or outside the hospital, and generally she is well oriented to circumstances, and can communicate and express her needs well. Insight and judgment considered to be fair. PSYCHIATRIC HISTORY: The patient denies any psychiatric history including psychiatric medication, suicide attempts, psychiatric outpatient followup or inpatient hospitalizations. SOCIAL HISTORY: The patient was born was raised in [place]. She is single. She has no children. She lives by herself. 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 She denies any drug or alcohol use. IMPRESSION: Adjustment disorder with anxiety, although the patient appears to be adjusting in the manner consistent with current circumstances. RECOMMENDATIONS: The patient generally feels like she feels as though she is doing well emotionally. She appears to be adjusting. The patient denies any major concerns psychiatrically. She does indicate that she is anxious, but only because she wants to be discharged, though she is going to work with medical team to optimize her physical health before discharge. She defers on any other psychiatric intervention including medications or voice therapy and this provider does not believe that she is a danger to herself or others, and does not require acute psychiatric interventions at this time against will. I will sign off at this time. Please consult p.r.n. if there are any new findings or indications for a psychiatric consultation. Pasquale Sena MD [facility] # [id number]
[2017-12-15] MEDS: Pantoprazole 40 mg EC Tab PO SCH ×2 (05:13→17:00)
[2017-12-15] MEDS: Sucralfate 1 gm/10 ml Oral Susp UD PO SCH ×2 (05:13→17:00)
[2017-12-15] MEDS: Budesonide 0.25 mg/2 ml Inhal Susp UD IH SCH ×2 (07:32→21:54)
[2017-12-15] MEDS: Arformoterol 15 mcg/2 ml Inh Sol IH SCH ×2 (07:32→21:54)
[2017-12-15] MEDS: Potassium Chloride 10 mEq ER Tab PO SCH (08:23)
--- NOTE | 2017-12-15 08:31 | CP.PCM.PN ---
Subjective - Date & Time of Evaluation Date of Evaluation: 12/15/17 Time of Evaluation: 06:45 - Subjective Subjective: Out of bed to chair,sleeping but easily awaken, no distress, feels better Reason for consultation and follow up: Continuity of care in TCU, history of mitral valve repair, on atrial fibrillation and was on Eliquis, GI bleeding, hypertension,CHF,COPD,hyperlipidemia,anemia, falls,cholecystectomy, ESBL in urine. Seen and examined by me and Dr. Beebe Objective - Vital Signs/Intake and Output Vital Signs (last 24 hours): Temp Pulse Resp BP Pulse Ox 98.2 F 86 18 120/82 95 12/15/17 06:00 12/15/17 06:00 12/15/17 06:00 12/15/17 06:00 12/15/17 06:00 - Medications Medications: Current Medications Arformoterol Tartrate (Brovana) 15 mcg [facility]H [id number] [facility] Last Admin: 12/15/17 07:32 Dose: 15 mcg Artificial Tears (Artificial Tears) 0 ml OU BID PRN PRN Reason: Dry eyes Last Admin: 12/13/17 04:28 Dose: 1 drop Budesonide (Pulmicort Respules) 0.25 mg IH [id number] [facility] PRN Reason: Protocol Last Admin: 12/15/17 07:32 Dose: 0.25 mg Clonazepam (Klonopin) 0.5 mg PO BID PRN; Protocol PRN Reason: Anxiety Stop: 12/19/17 11:18 Diltiazem HCl (Cardizem Cd) 120 mg PO DAILY [facility] PRN Reason: Protocol Last Admin: 12/14/17 10:18 Dose: Not Given Furosemide (Lasix) 40 mg PO DAILY [facility] Last Admin: 12/14/17 10:19 Dose: 40 mg Iron Sucrose 100 mg/ Sodium (Chloride) 105 mls @ 210 mls/hr IV 0600 [facility] Last Admin: 12/15/17 05:10 Dose: 210 mls/hr Levalbuterol HCl (Xopenex) 0.63 mg IH [id number] PRN; Protocol PRN Reason: Shortness of Breath Levofloxacin (Levaquin) 500 mg PO DAILY [facility] PRN Reason: Protocol Magnesium Oxide (Mag-Ox) 400 mg PO BID [facility] PRN Reason: Protocol Last Admin: 06/09/18 17:31 Dose: 400 mg Metoprolol Tartrate (Lopressor) 50 mg PO BID [facility] PRN Reason: Protocol Last Admin: 12/14/17 17:31 Dose: 50 mg Oxycodone/Acetaminophen (Percocet 5/325 Mg Tab) 1 tab PO Q6H PRN; Protocol PRN Reason: Pain, moderate (4-7) Stop: 12/15/17 14:28 Last Admin: 12/14/17 21:13 Dose: 1 tab Pantoprazole Sodium (Protonix Ec Tab) 40 mg PO 0600,1600 [facility] PRN Reason: Protocol Last Admin: 12/15/17 05:13 Dose: 40 mg Potassium Chloride (Klor-Con 10) 10 meq PO 0800 [facility] Last Admin: 12/14/17 08:08 Dose: 10 meq Sucralfate (Carafate Oral Susp) 1 gm PO 0600,1600 [facility] Last Admin: 12/15/17 05:13 Dose: 1 gm - Labs Labs: 12/14/17 12:30 12/14/17 12:30 - Constitutional Appears: No Acute Distress - Head Exam Head Exam: NORMOCEPHALIC - Eye Exam Eye Exam: Normal appearance - ENT Exam ENT Exam: Mucous Membranes Moist - Respiratory Exam Respiratory Exam: Clear to Ausculation Bilateral, NORMAL BREATHING PATTERN - Cardiovascular Exam Cardiovascular Exam: +S1, +S2 - GI/Abdominal Exam GI & Abdominal Exam: Soft, Normal Bowel Sounds - Extremities Exam Extremities Exam: Normal Capillary Refill Additional comments: denies knee pain, no swelling - Neurological Exam Neurological Exam: Alert, Awake, Oriented x3 - Psychiatric Exam Psychiatric exam: Normal Affect, Normal Mood - Skin Skin Exam: Intact, Normal Color, Warm Assessment and Plan - Assessment and Plan (Free Text) Assessment: A 62 year old female who initially came to ER due to tarry stools. Hemoglobin at that time was 6.7. She was transfused PRBC's and platelets. Endoscopy showed gastric peptic ulcer. Stabilized GI bleeding.Stabilized hemoglobin. She also had complaints of knee swelling which Dr. Vines was consulted and steroid injection to both knees were done with resolution (gout). Urinary tract infection and given antibiotics at that time. Eliquis was discontinued and started on Heparin drip for atrial fibrillation. She was transferred to TCU for reconditioning. At TCU, no further episodes of tarry stools and Heparin was transitioned to Coumadin. Coumadin as we can monitor INR however had another episode of GI bleeding thus was sent to ER and subsequently to ICU. Transfused PRBC's in ICU, stabilized hemoglobin and hematocrit. Transferred again to TCU for reconditioning.History of Mitral valve repair,hypertension,atrial fibrillation,CHF,COPD,hyperlipidemia,anemia, falls,cholecystectomy, ESBL in urine. Plan: Physical therapy in progress Out of bed to chair Cardiac status stable, Controlled heart and blood pressure Hold any anticoagulation for now due to GI bleeding Recommend ablation if atrial fibrillation reoccurs Will follow up closely Monitor for GI bleeding On Iron IV Continue current medications Continue current treatment Discharge planning Will follow up Plan and treatment discussed with Dr. Beebe
[2017-12-15 09:21] LABS: BASO # 0.04 K/mm3 (0.0-2.0); BASO % 0.4 % (0.0-3.0); EOS # 0.4 (0.0-0.7); EOS % 3.5 % (1.5-5.0); GRAN # 7.22 (1.4-6.5); GRAN % 71.2 % (50.0-68.0); HEMOGLOBIN 9.5 g/dL (12.0-16.0); LYMPH # 1.5 (1.2-3.4); LYMPH % 14.5 % (22.0-35.0); MEAN CELL VOLUME 91.5 fl (80.0-105.0); MEAN CORPUSCULAR HGB CONC 32.8 g/dl (31.0-37.0); MEAN PLATELET VOLUME 9.5 fl (7.0-11.0); MONO # 1.1 (0.1-0.6); MONO % 10.4 % (1.0-6.0); RBC 3.17 10^6/uL (3.5-6.1); WHITE BLOOD COUNT 10.2 10^3/ul (4.5-11.0)
[2017-12-15] MEDS: levoFLOXacin 500 MG TAB PO SCH (09:28)
[2017-12-15] MEDS: Magnesium Oxide 400 mg Tab UD PO SCH ×2 (09:28→17:00)
[2017-12-15] MEDS: diltiaZEM 120 mg/24 Hours CD Cap PO SCH (09:29)
[2017-12-15 09:31] LABS: ALB/GLOB RATIO 1.2 (1.1-1.8); ALBUMIN 3.5 g/dL (3.0-4.8); ALT/SGPT 19 U/L (7-56); AST/SGOT 20 U/L (14-36); BLOOD UREA NITROGEN 7 mg/dL (7-21); CALCIUM 9.7 mg/dL (8.4-10.5); GFR AFRICAN-AMERICAN > 60; GFR NON-AFRICAN AMERICAN 56
--- NOTE | 2017-12-15 10:48 | CARD ---
APPROVED REPORT EKG Measurement Heart [id number] <Conclusion> Sinus rhythm APCs NSSTW changes Prolonged QTc STTW changes c/w ischemia No change
[2017-12-15 13:28] VITALS: O2SAT 91
--- NOTE | 2017-12-15 14:12 | CP.PCM.PN ---
Subjective - Date & Time of Evaluation Date of Evaluation: 12/15/17 Time of Evaluation: 11:20 - Subjective Subjective: Comfortable, no dysuria, no nausea, no diarrhea. Objective - Vital Signs/Intake and Output Vital Signs (last 24 hours): Temp Pulse Resp BP Pulse Ox 98.2 F 86 18 120/82 95 12/15/17 06:00 12/15/17 06:00 12/15/17 06:00 12/15/17 06:00 12/15/17 06:00 - Medications Medications: Current Medications Arformoterol Tartrate (Brovana) 15 mcg IH [id number] [facility] Last Admin: 12/15/17 07:32 Dose: 15 mcg Artificial Tears (Artificial Tears) 0 ml OU BID PRN PRN Reason: Dry eyes Last Admin: 12/13/17 04:28 Dose: 1 drop Budesonide (Pulmicort Respules) 0.25 mg IH [id number] [facility] PRN Reason: Protocol Last Admin: 12/15/17 07:32 Dose: 0.25 mg Clonazepam (Klonopin) 0.5 mg PO BID PRN; Protocol PRN Reason: Anxiety Stop: 12/19/17 11:18 Diltiazem HCl (Cardizem Cd) 120 mg PO DAILY [facility] PRN Reason: Protocol Last Admin: 12/14/17 10:18 Dose: Not Given Furosemide (Lasix) 40 mg PO DAILY [facility] Last Admin: 12/14/17 10:19 Dose: 40 mg Iron Sucrose 100 mg/ Sodium (Chloride) 105 mls @ 210 mls/hr IV 0600 [facility] Last Admin: 12/15/17 05:10 Dose: 210 mls/hr Levalbuterol HCl (Xopenex) 0.63 mg IH [id number] PRN; Protocol PRN Reason: Shortness of Breath Levofloxacin (Levaquin) 500 mg PO DAILY [facility] PRN Reason: Protocol Magnesium Oxide (Mag-Ox) 400 mg PO BID [facility] PRN Reason: Protocol Last Admin: 12/14/17 17:31 Dose: 400 mg Metoprolol Tartrate (Lopressor) 50 mg PO BID [facility] PRN Reason: Protocol Last Admin: 12/14/17 17:31 Dose: 50 mg Oxycodone/Acetaminophen (Percocet 5/325 Mg Tab) 1 tab PO Q6H PRN; Protocol PRN Reason: Pain, moderate (4-7) Stop: 12/15/17 14:28 Last Admin: 12/14/17 21:13 Dose: 1 tab Pantoprazole Sodium (Protonix Ec Tab) 40 mg PO 0600,1600 [facility] PRN Reason: Protocol Last Admin: 12/15/17 05:13 Dose: 40 mg Potassium Chloride (Klor-Con 10) 10 meq PO 0800 [facility] Last Admin: 12/14/17 08:08 Dose: 10 meq Sucralfate (Carafate Oral Susp) 1 gm PO 0600,1600 [facility] Last Admin: 12/15/17 05:13 Dose: 1 gm - Labs Labs: 12/14/17 12:30 12/14/17 12:30 - Constitutional Appears: Chronically Ill - Head Exam Head Exam: NORMAL INSPECTION - Respiratory Exam Respiratory Exam: Decreased Breath Sounds - Cardiovascular Exam Cardiovascular Exam: +S1, +S2 - GI/Abdominal Exam GI & Abdominal Exam: Soft. absent: Tenderness Assessment and Plan - Assessment and Plan (Free Text) Plan: Assessment ESBL Klebsiella complicated UTI with Myers catheter - now the Klebsiella is sensitive to Quinolones GI bleeding chronic CHF severe mitral regurgitation S/P mitral valve replacement atrial fibrillation asthma HTN esophageal ulcers carpal tunnel syndrome COPD dyslipidemia atrial fibrillation S/P cholecystectomy S/P foot surgery Plan QTc is less than 500 ms - continue PO Levaquin (day 6 total) to complete 5-7 days total antibiotics - will d/c after today will continue to monitor clinically
--- NOTE | 2017-12-15 15:13 | PN ---
DATE: 12/14/2017 SUBJECTIVE: She is stable. No complaint. Her hemoglobin is stable. No nausea. No vomiting. No other complaint. We are still monitoring her labs. No rectal bleeding. No black stools at this time. PHYSICAL EXAMINATION: VITAL SIGNS: Temperature 98, heart rate is 65, blood pressure 122/81, respirations 18, sat 96% on room air. HEAD AND NECK: Normal. No JVD. No thyromegaly. CHEST: Clear. Good air entry. CARDIAC: First sound and second sound normal. ABDOMEN: Soft, nontender. EXTREMITIES: No edema. NEUROLOGICAL: Normal. LABORATORY STUDY: Sodium 137, potassium 4.2, chloride 100, bicarb 27, BUN 7, creatinine 0.9. Liver function test is normal. AST and ALT are normal. Alk phos is normal. CBC on 12/14/2017: White count 9.4, hemoglobin 7.9, hematocrit 24.1 and platelets are 381. IMPRESSION AND PLAN: 1. Acute gastrointestinal bleed, recurrent gastrointestinal bleed due to peptic ulcer disease. Continue Protonix 40 b.i.d. Monitor H&H. We will repeat labs in the morning. No active bleeding. Her stool is normal color, brown. No black stool. Continue monitor H&H. Repeat labs in the morning. 2. Chronic obstructive pulmonary disease, hypertension, hypercholesterolemia, paroxysmal atrial fibrillations. We will get an EKG, which shows sinus rhythm with premature atrial contractions. Continue monitoring. Continue physical therapy. Baltazar Guerra MD
[2017-12-15 16:25] VITALS: RESP 18; TEMP 98.4
--- NOTE | 2017-12-15 18:22 | PN ---
DATE: 12/15/2017 This is [facility] visit on TCU. For Dr. Jimenez. SUBJECTIVE: The patient is a 62-year-old female, now off all anticoagulants as per Dr. Beebe's recommendations, so that her ulcer will have time to heal as she is in a controlled environment, we are watching for untoward activity. The patient's EKG was recently done, read as normal sinus with APCs with the patient known to have an antral ulcer that was healing with initial GI bleed requiring 2 units of packed cells, then the patient again had to be readmitted to the intensive care unit for drop in her hemoglobin, two additional units of packed cells transfused. After low-flow heparin was discontinued in favor of p.o. Coumadin with the patient now resting comfortably with an improvement of her hemoglobin from 7.9 yesterday to 9.5 value today after Aranesp and IV iron on a daily basis were recommended by Dr. Arciniega with good effect. The patient is otherwise sitting up with the family at the bedside, feeling much betters she reports with her pain also improved. PHYSICAL EXAMINATION: VITAL SIGNS: Temperature 98.3, pulse 85, respirations 20, blood pressure 117/77, pulse ox 91%. HEENT: Unremarkable. Tongue is moist and midline. NECK: Supple. HEART: Regular rate. Occasional ectopic beat. LUNGS: Clear. ABDOMEN: Soft, nontender. EXTREMITIES: No edema. SKIN: Warm and dry. NEUROLOGIC: Awake, alert, and oriented x3. LABORATORY DATA: Patient's labs were done. White blood cell count of 10.2, hemoglobin of 9.5 up from 7.9 yesterday, hematocrit of 29, platelet count of 439,000 with a normal chem metabolic panel. Patient's EKG was done yesterday, it was read as sinus rhythm, APCs, nonspecific ST changes, prolonged QTc, ST-T wave changes consistent with ischemia with no change. ASSESSMENT: Gastrointestinal bleed; antral ulcer; status post symptomatic anemia with transfusion of 5 units of packed cells; history of paroxysmal atrial fibrillation, off Eliquis, off Coumadin, off aspirin for now; intractable pain of degenerative disk disease, bioprosthetic valve and mitral valve regurgitation, atherosclerotic cardiovascular disease, chronic obstructive pulmonary disease, gouty arthritis, hypertension, and deconditioning. PLAN: Continue present medical regimen with IV Venofer day #2 with monitoring clinically and with labs. The prognosis for this patient is guarded. This is a complex patient with a comprehensive medically necessary and appropriate visit carried out in excess of 20 minutes waxp-di-gibj time with patient, and her questions and questions of family member were answered to their satisfaction. Larry Mcdaniel MD
[2017-12-15] MEDS ORDERED: Oxycodone/Acetaminophen 5/325 mg Tab PO PRN (19:46)
--- NOTE | 2017-12-15 21:42 | PN ---
DATE: 12/15/2017 PULMONARY PROGRESS NOTE REFERRING PHYSICIAN: Baltazar Guerra MD SUBJECTIVE: The patient is out of bed to wheelchair, night was unremarkable. No headache, no rhinitis. No nausea, no vomiting, no diarrhea. No leg pain or leg swelling. No melena or hematochezia. OBJECTIVE: GENERAL: In no acute distress. VITAL SIGNS: Temperature is 98, heart rate 94, respiratory rate is 20, blood pressure 132/82, pulse ox 91% on room air. HEENT: Moist mucous membranes. Crowded airway. NECK: Supple. No JVD. LUNGS: Have a fair airflow with few rhonchi. HEART: S1 and S2. ABDOMEN: Soft, nontender. No organomegaly. EXTREMITIES: There is no edema. NEUROLOGICAL: Awake and alert. Follows simple command. MEDICATIONS: She is on artificial tears to both eyes, Brovana inhaled twice a day, Carafate 1 g twice a day, Cardizem 120 mg daily, iron sucrose daily, Clonazepam 0.5 mg twice a day p.r.n., potassium 10 mEq daily, Lasix 40 mg daily, Levaquin 500 mg started today, metoprolol tartrate 50 mg twice a day, mag oxide 400 mg twice a day, Protonix 40 mg daily, Pulmicort inhaled twice a day, Xopenex inhaled every 6 hours p.r.n. LABORATORY DATA: Shows hemoglobin 9.5, hematocrit 29, WBC 10.2 and platelet is 439. Sodium 139, potassium 4.5, chloride 101, bicarbonate is 26, BUN 7, creatinine 1, glucose 171, calcium 9.7. AST 20, ALT 19, alkaline phosphatase is 101. Albumin 3.5. IMPRESSION AND PLAN: Status post gastrointestinal bleeding, recurrent gastric ulcer status post esophagogastroduodenoscopy showing nonbleeding ulcers, atrial fibrillation, coronary artery disease, chronic obstructive lung disease, suspected sleep apnea syndrome, urinary tract infection and severe anemia. Pulmonary point of view, doing okay. Continue bronchodilator. Keep head at 45 degrees. Sleep apnea precaution. Started on antibiotics. Fall precaution. Follow patient . Thank you and we will follow with you. Brittany Arciniega MD
--- NOTE | 2017-12-15 23:00 | PN ---
DATE: 12/15/2017 SUBJECTIVE: This patient was seen and evaluated earlier today. Patient, on examination, is afebrile. Patient has no complaints of abdominal pain, tolerating the diet, has normal bowel movements, no bleeding. PHYSICAL EXAMINATION: VITAL SIGNS: Temperature is 98.4, blood pressure 132/82, pulse is 94, respirations 18. HEENT: Atraumatic and anicteric. NECK: Supple. HEART: S1 and S2 heard. LUNGS: Bilateral air entry present. ABDOMEN: Soft. There is no tenderness. NEUROLOGIC: Alert and oriented. LABORATORY DATA: Hemoglobin 9.5, hematocrit 29, WBC 10.2, platelets 459. Chemistry is essentially unremarkable. IMPRESSION AND PLAN: 1. Gastric ulcer, has had recurrent GI bleeding, now off the anticoagulation. Patient was admitted twice in the Intensive Care Unit with a significant bleed. Five units of packed red blood cells transfused and 3 units of fresh frozen plasma. The patient is concerned about recurrence of the bleeding on anticoagulation. 2. Atrial fibrillation, history of mitral valve replacement. 3. History of gouty arthritis. RECOMMENDATIONS: 1. The patient is on Protonix twice daily and Carafate. We will continue that with a close followup of the hemoglobin and hematocrit. 2. The patient will need a repeat endoscopy in about 2 months or 6 to 8 weeks' time. 3. Patient's anticoagulation - do not hold. Patient is being followed by Cardiology closely. Further intervention for AFib will be as per the Cardiology. 4. Patient had a ESBL UTI before, on and completed the antibiotic course as per ID. Continue to closely follow up her care and suggest further management based on the clinical course. The importance of the GI followup has been explained to the patient at length. Sun Ramirez MD
--- NOTE | 2017-12-16 01:19 | HP ---
DATE OF EXAM: 12/13/2017 The patient was admitted for medical management, monitoring her H and H, and physical therapy, status post acute GI bleed. HISTORY OF PRESENT ILLNESS: This is a 62-year-old female who has a large peptic ulcer. She was started on heparin and Coumadin while was in the previous admissions, developed bleeding and stayed in the unit and after the unit, the patient was re-scoped again. There was no active bleeding and monitored her H and H. Discussion with Dr. Beebe. We will hold off on any anticoagulation. She does have paroxysmal atrial fibrillation. We will hold off on aspirin and monitor her condition clinically. Risk of bleeding outweighs the risk of stroke and embolizations. We will keep monitoring her conditions. The patient has no other complaints. She is just anxious, worrying about that, otherwise, stable. PAST MEDICAL HISTORY: Mitral valve replacement, hypertension, COPD, peptic ulcer, anemia requiring transfusions, pseudogout arthritis, chronic osteoarthritis, and chronic back pain. ALLERGIES: CINNAMON. SOCIAL HISTORY: No smoking. No drinking. She lives by herself. FAMILY HISTORY: Noncontributory. REVIEW OF SYSTEMS: As in the present illness. She does complain always of joint pain, back pain, and pseudogout arthritis, otherwise negative. LABORATORY DATA: Her laboratory study shows the following: On 12/13/2017, white count 14.6, hemoglobin 8.6, hematocrit 26.5, platelets 397. Chemistry: Sodium 137, potassium 3.6, chloride 100, bicarbonate 26, BUN 7, creatinine 0.9. Liver function test is normal. IMPRESSION AND PLAN: A 62-year-old female status post gastrointestinal bleeding, transferred from the unit for medical management in TCU. We will admit the patient for medical management, monitoring her hemoglobin and hematocrit. We will also get physical therapy, resume her medications, and we will get the cardiology consult to evaluate her cardiac status and monitor her hemoglobin and hematocrit. We will continue and resume all her medications and we will follow up clinically. Baltazar Guerra MD
[2017-12-16] MEDS: Sucralfate 1 gm/10 ml Oral Susp UD PO SCH (05:10)
[2017-12-16] MEDS: Pantoprazole 40 mg EC Tab PO SCH (05:10)
--- NOTE | 2017-12-16 06:51 | CP.PCM.PN ---
Subjective - Date & Time of Evaluation Date of Evaluation: 12/16/17 Time of Evaluation: 06:35 - Subjective Subjective: Awake, denies chest pain or shortness of breath, no distress, feels better Reason for consultation and follow up: Continuity of care in TCU, history of mitral valve repair, on atrial fibrillation and was on Eliquis, GI bleeding, hypertension,CHF,COPD,hyperlipidemia,anemia, falls,cholecystectomy, ESBL in urine. Seen and examined by me and Dr. Beebe Objective - Vital Signs/Intake and Output Vital Signs (last 24 hours): Temp Pulse Resp BP Pulse Ox 98.4 F 94 H 18 132/82 91 L 12/15/17 16:25 12/15/17 17:00 12/15/17 16:25 12/15/17 17:00 12/15/17 13:28 - Medications Medications: Current Medications Arformoterol Tartrate (Brovana) 15 mcg IH [id number] [facility] Last Admin: 12/15/17 21:54 Dose: 15 mcg Artificial Tears (Artificial Tears) 0 ml OU BID PRN PRN Reason: Dry eyes Last Admin: 12/13/17 04:28 Dose: 1 drop Budesonide (Pulmicort Respules) 0.25 mg IH [id number] [facility] PRN Reason: Protocol Last Admin: 12/15/17 21:54 Dose: 0.25 mg Clonazepam (Klonopin) 0.5 mg PO BID PRN; Protocol PRN Reason: Anxiety Stop: 12/19/17 11:18 Diltiazem HCl (Cardizem Cd) 120 mg PO DAILY [facility] PRN Reason: Protocol Last Admin: 12/15/17 09:29 Dose: 120 mg Furosemide (Lasix) 40 mg PO DAILY [facility] Last Admin: 12/15/17 09:29 Dose: 40 mg Iron Sucrose 100 mg/ Sodium (Chloride) 105 mls @ 210 mls/hr IV 0600 [facility] Last Admin: 12/16/17 05:10 Dose: 210 mls/hr Levalbuterol HCl (Xopenex) 0.63 mg IH [id number] PRN; Protocol PRN Reason: Shortness of Breath Levofloxacin (Levaquin) 500 mg PO DAILY [facility] PRN Reason: Protocol Last Admin: 12/15/17 09:28 Dose: 500 mg Magnesium Oxide (Mag-Ox) 400 mg PO BID [facility] PRN Reason: Protocol Last Admin: 12/15/17 17:00 Dose: 400 mg Metoprolol Tartrate (Lopressor) 50 mg PO BID [facility] PRN Reason: Protocol Last Admin: 12/15/17 17:00 Dose: 50 mg Oxycodone/Acetaminophen (Percocet 5/325 Mg Tab) 1 tab PO Q6H PRN PRN Reason: moderate pain - 4-7 Stop: 12/18/17 19:47 Last Admin: 12/15/17 21:11 Dose: 1 tab Pantoprazole Sodium (Protonix Ec Tab) 40 mg PO 0600,1600 [facility] PRN Reason: Protocol Last Admin: 12/16/17 05:10 Dose: 40 mg Potassium Chloride (Klor-Con 10) 10 meq PO 0800 [facility] Last Admin: 12/15/17 08:23 Dose: 10 meq Sucralfate (Carafate Oral Susp) 1 gm PO 0600,1600 [facility] Last Admin: 12/16/17 05:10 Dose: 1 gm - Labs Labs: 12/15/17 09:11 12/15/17 09:11 - Constitutional Appears: No Acute Distress - Head Exam Head Exam: NORMOCEPHALIC - Eye Exam Eye Exam: Normal appearance - ENT Exam ENT Exam: Mucous Membranes Moist - Respiratory Exam Respiratory Exam: Decreased Breath Sounds, NORMAL BREATHING PATTERN - Cardiovascular Exam Cardiovascular Exam: +S1, +S2 - GI/Abdominal Exam GI & Abdominal Exam: Soft, Normal Bowel Sounds - Extremities Exam Extremities Exam: Normal Capillary Refill Additional comments: denies knee pain,no swelling - Neurological Exam Neurological Exam: Alert, Awake, Oriented x3 - Psychiatric Exam Psychiatric exam: Normal Affect, Normal Mood - Skin Skin Exam: Intact, Normal Color, Warm Assessment and Plan - Assessment and Plan (Free Text) Assessment: A 62 year old female who initially came to ER due to tarry stools. Hemoglobin at that time was 6.7. She was transfused PRBC's and platelets. Endoscopy showed gastric peptic ulcer. Stabilized GI bleeding.Stabilized hemoglobin. She also had complaints of knee swelling which Dr. Vines was consulted and steroid injection to both knees were done with resolution (gout). Urinary tract infection and given antibiotics at that time. Eliquis was discontinued and started on Heparin drip for atrial fibrillation. She was transferred to TCU for reconditioning. At TCU, no further episodes of tarry stools and Heparin was transitioned to Coumadin. Coumadin as we can monitor INR however had another episode of GI bleeding thus was sent to ER and subsequently to ICU. Transfused PRBC's in ICU, stabilized hemoglobin and hematocrit. Transferred again to TCU for reconditioning.History of Mitral valve repair,hypertension,atrial fibrillation,CHF,COPD,hyperlipidemia,anemia, falls,cholecystectomy, ESBL in urine (Levaquin) Plan: Cardiac status stable, Controlled heart and blood pressure Clinically improved Last dose of Levaquin today (UTI) Physical therapy in progress Hold any anticoagulation for now due to GI bleeding Recommend ablation if atrial fibrillation reoccurs Will follow up closely Monitor for GI bleeding On Iron IV Continue current medications Continue current treatment Discharge planning Follow up in office 2-3 in weeks Will follow up Plan and treatment discussed with Dr. Beebe
[2017-12-16 07:18] LABS: CALCIUM 9.4 mg/dL (8.4-10.5)
[2017-12-16] MEDS: Budesonide 0.25 mg/2 ml Inhal Susp UD IH SCH (07:31)
[2017-12-16] MEDS: Arformoterol 15 mcg/2 ml Inh Sol IH SCH (07:31)
[2017-12-16] MEDS: Potassium Chloride 10 mEq ER Tab PO SCH (07:54)
--- NOTE | 2017-12-16 08:11 | CP.PCM.PN ---
Subjective - Date & Time of Evaluation Date of Evaluation: 12/16/17 Time of Evaluation: 08:11 - Subjective Subjective: Hematology-Oncology Progress note for Dr. Jimenez Patient seen and examined at bedside talking on the phone. Nursing reports no acute events overnight. Patient had a BM yesterday with no dimitri blood/melena. Patient denied acute complaints of headache, chest pain, SOB, abd pain, pain in her legs. She is eager to be discharged home. Objective - Vital Signs/Intake and Output Vital Signs (last 24 hours): Temp Pulse Resp BP Pulse Ox 98.4 F 94 H 18 132/82 91 L 12/15/17 16:25 12/15/17 17:00 12/15/17 16:25 12/15/17 17:00 12/15/17 13:28 - Medications Medications: Current Medications Arformoterol Tartrate (Brovana) 15 mcg IH [id number] [facility] Last Admin: 12/16/17 07:31 Dose: 15 mcg Artificial Tears (Artificial Tears) 0 ml OU BID PRN PRN Reason: Dry eyes Last Admin: 12/13/17 04:28 Dose: 1 drop Budesonide (Pulmicort Respules) 0.25 mg IH [id number] [facility] PRN Reason: Protocol Last Admin: 12/16/17 07:31 Dose: 0.25 mg Clonazepam (Klonopin) 0.5 mg PO BID PRN; Protocol PRN Reason: Anxiety Stop: 18 11:18 Diltiazem HCl (Cardizem Cd) 120 mg PO DAILY [facility] PRN Reason: Protocol Last Admin: 12/15/17 09:29 Dose: 120 mg Furosemide (Lasix) 40 mg PO DAILY [facility] Last Admin: 12/15/17 09:29 Dose: 40 mg Iron Sucrose 100 mg/ Sodium (Chloride) 105 mls @ 210 mls/hr IV 0600 [facility] Last Admin: 12/16/17 05:10 Dose: 210 mls/hr Levalbuterol HCl (Xopenex) 0.63 mg IH [id number] PRN; Protocol PRN Reason: Shortness of Breath Levofloxacin (Levaquin) 500 mg PO DAILY [facility] PRN Reason: Protocol Last Admin: 12/15/17 09:28 Dose: 500 mg Magnesium Oxide (Mag-Ox) 400 mg PO BID [facility] PRN Reason: Protocol Last Admin: 12/15/17 17:00 Dose: 400 mg Metoprolol Tartrate (Lopressor) 50 mg PO BID [facility] PRN Reason: Protocol Last Admin: 12/15/17 17:00 Dose: 50 mg Oxycodone/Acetaminophen (Percocet 5/325 Mg Tab) 1 tab PO Q6H PRN PRN Reason: moderate pain - 4-7 Stop: 12/18/17 19:47 Last Admin: 12/15/17 21:11 Dose: 1 tab Pantoprazole Sodium (Protonix Ec Tab) 40 mg PO 0600,1600 [facility] PRN Reason: Protocol Last Admin: 12/16/17 05:10 Dose: 40 mg Potassium Chloride (Klor-Con 10) 10 meq PO 0800 [facility] Last Admin: 12/16/17 07:54 Dose: 10 meq Sucralfate (Carafate Oral Susp) 1 gm PO 0600,1600 [facility] Last Admin: 12/16/17 05:10 Dose: 1 gm - Labs Labs: 12/15/17 09:11 12/16/17 06:20 - Constitutional Appears: Non-toxic, No Acute Distress - Head Exam Head Exam: ATRAUMATIC, NORMAL INSPECTION, NORMOCEPHALIC - Eye Exam Eye Exam: EOMI, Normal appearance, PERRL. absent: Conjunctival injection, Scleral icterus Pupil Exam: NORMAL ACCOMODATION, PERRL - ENT Exam ENT Exam: Mucous Membranes Moist - Neck Exam Neck Exam: Full ROM, Normal Inspection - Respiratory Exam Respiratory Exam: Clear to Ausculation Bilateral. absent: Accessory Muscle Use , Rales, Rhonchi, Wheezes, Respiratory Distress - Cardiovascular Exam Cardiovascular Exam: +S1, +S2 - Rectal Exam Rectal Exam: Deferred - Extremities Exam Extremities Exam: Normal Inspection - Neurological Exam Neurological Exam: Alert, Awake, Oriented x3 - Psychiatric Exam Psychiatric exam: Normal Affect, Normal Mood - Skin Skin Exam: Dry, Intact Assessment and Plan - Assessment and Plan (Free Text) Assessment: 62yo female PMHx A-fib on coumadin, mitral valve repair (severe mitral regurgitation s/p open heart surgery and repair with MVR biprosthetic), CAD, COPD was transferred from TCU to MICU for rectal bleed on 12/07. Patient is s/p 2U PRBC, 1U FFP. s/p EGD showing 1cm nonbleeding ulcer (Mohave Class III). Patient currently seen back in TCU. H&H stable. Anticoag discontinued as per cardio and ASA on hold for 1 month. Patient is not a candidate for anticoagulation and recommended for radiofrequency ablation at [facility] if Afib reoccurs. GI Dr. Ramirez on board- appreciate reccs. Cardio Dr. Beebe on board- appreciate reccs. Iron panel low- continue IV iron. Continue PPI therapy. Continue PT. VS and Labs reviewed. Continue management as per primary. Discussed with Dr. Tony Cedillo PGY2
[2017-12-16 08:21] LABS: HEMOGLOBIN 8.9 g/dL (12.0-16.0); MEAN CELL VOLUME 91.4 fl (80.0-105.0); MEAN CORPUSCULAR HEMOGLOBIN 29.5 pg (25.0-35.0); MEAN CORPUSCULAR HGB CONC 32.2 g/dl (31.0-37.0); MEAN PLATELET VOLUME 9.8 fl (7.0-11.0); RBC 3.02 10^6/uL (3.5-6.1); RED CELL DISTRIBUTION WIDTH 15.2 % (11.5-14.5); WHITE BLOOD COUNT 10.4 10^3/ul (4.5-11.0)
--- NOTE | 2017-12-16 09:00 | PN ---
DATE: 12/14/2017 SUBJECTIVE: This patient was seen and evaluated earlier today. No bleeding per rectum. The patient is off the anticoagulation. any abdominal pain. PHYSICAL EXAMINATION VITAL SIGNS: Stable. ABDOMEN: Soft, but there is . HEART: S1 and S2 heard. LUNGS: Bilateral air entry present. LABORATORY DATA: Previous labs reviewed. IMPRESSION: 1. Status post gastrointestinal bleeding twice, the patient was in the ICU with gastrointestinal bleeding. The patient has large ulcer in the antrum. endoscopy showed . The patient is on high-dose proton pump inhibitors. 2. Atrial fibrillation. 3. Mitral valve replacement, bioprosthetic valve . 4. Gouty arthritis. RECOMMENDATION: The patient had twice significant bleeding. The patient needs to be readmitted to the ICU. Cardiology note was reviewed. The plan is for updation of therapy for AFib and also being considered for WATCHMAN procedure. At the present, the Cardiology and also the patient is reluctant to have renewed . Cardiology note reviewed. As per Cardiology, the patient first should be off the anticoagulation for a short period of time and . The patient is to follow up with the office. Sun Ramirez MD
[2017-12-16] MEDS: diltiaZEM 120 mg/24 Hours CD Cap PO SCH (09:18)
[2017-12-16] MEDS: levoFLOXacin 500 MG TAB PO SCH (09:18)
[2017-12-16] MEDS: Magnesium Oxide 400 mg Tab UD PO SCH (09:19)
[2017-12-16 09:20] VITALS: BP 125/70; PULSE 82
--- NOTE | 2017-12-16 15:14 | CP.PCM.PN ---
Subjective - Date & Time of Evaluation Date of Evaluation: 12/16/17 Time of Evaluation: 11:25 - Subjective Subjective: Comfortable, no fevers, no diarrhea. Objective - Vital Signs/Intake and Output Vital Signs (last 24 hours): Temp Pulse Resp BP Pulse Ox 98.4 F 82 18 125/70 91 L 12/15/17 16:25 12/16/17 09:18 12/15/17 16:25 12/16/17 09:18 12/15/17 13:28 - Medications Medications: Current Medications Arformoterol Tartrate (Brovana) [id number] [facility] Last Admin: 12/16/17 07:31 Dose: 15 mcg Artificial Tears (Artificial Tears) 0 ml OU BID PRN PRN Reason: Dry eyes Last Admin: 12/13/17 04:28 Dose: 1 drop Budesonide (Pulmicort Respules) 0.[id number] [facility] PRN Reason: Protocol Last Admin: 12/16/17 07:31 Dose: 0.25 mg Clonazepam (Klonopin) 0.5 mg PO BID PRN; Protocol PRN Reason: Anxiety Stop: 12/19/17 11:18 Diltiazem HCl (Cardizem Cd) [address] [facility] PRN Reason: Protocol Last Admin: 12/16/17 09:18 Dose: 120 mg Furosemide (Lasix) [address] [facility] Last Admin: 12/16/17 09:18 Dose: 40 mg Iron Sucrose 100 mg/ Sodium (Chloride) 105 mls @ 210 mls/hr IV 0600 [facility] Last Admin: 12/16/17 05:10 Dose: 210 mls/hr Levalbuterol HCl (Xopenex) 0.63 mg IH [id number] PRN; Protocol PRN Reason: Shortness of Breath Magnesium Oxide (Mag-Ox) [address] [facility] PRN Reason: Protocol Last Admin: 12/16/17 09:19 Dose: 400 mg Metoprolol Tartrate (Lopressor) [address] [facility] PRN Reason: Protocol Last Admin: 12/16/17 09:18 Dose: 50 mg Oxycodone/Acetaminophen (Percocet 5/325 Mg Tab) 1 tab PO Q6H PRN PRN Reason: moderate pain - 4-7 Stop: 12/18/17 19:47 Last Admin: 12/15/17 21:11 Dose: 1 tab Pantoprazole Sodium (Protonix Ec Tab) 40 mg PO 0600,1600 [facility] PRN Reason: Protocol Last Admin: 12/16/17 05:10 Dose: 40 mg Potassium Chloride (Klor-Con 10) 10 meq PO 0800 [facility] Last Admin: 12/16/17 07:54 Dose: 10 meq Sucralfate (Carafate Oral Susp) 1 gm PO 0600,1600 [facility] Last Admin: 12/16/17 05:10 Dose: 1 gm - Labs Labs: 12/16/17 08:34 12/16/17 06:20 - Constitutional Appears: Chronically Ill - Respiratory Exam Respiratory Exam: Decreased Breath Sounds - Cardiovascular Exam Cardiovascular Exam: +S1, +S2 - GI/Abdominal Exam GI & Abdominal Exam: Soft. absent: Tenderness Assessment and Plan - Assessment and Plan (Free Text) Plan: Assessment S/P ESBL Klebsiella complicated UTI with Myers catheter - now the Klebsiella is sensitive to Quinolones GI bleeding chronic CHF severe mitral regurgitation S/P mitral valve replacement atrial fibrillation asthma HTN esophageal ulcers carpal tunnel syndrome COPD dyslipidemia atrial fibrillation S/P cholecystectomy S/P foot surgery Plan completed 6 days of Levaquin and repeat urine cx are negative - will continue to monitor off antibiotics since she is at risk for nosocomial infections
--- NOTE | 2017-12-17 02:17 | PN ---
DATE: 12/16/2017 PULMONARY PROGRESS NOTE REFERRING PHYSICIAN: Baltazar Guerra MD. SUBJECTIVE: She is out of bed to chair. Night was unremarkable. Feels better. No headache. No rhinitis. Gets short of breath with exertion. No chest pain. No nausea. No vomiting. No diarrhea. No melena. OBJECTIVE: GENERAL: In no acute distress. VITAL SIGNS: Temp is 98, heart rate is 82, respiratory rate is 20, blood pressure 125/70. HEENT: Moist mucous membrane. Crowded airway. NECK: Supple. No JVD. LUNGS: Have a fair airflow with rhonchi. HEART: S1 and S2. ABDOMEN: Soft, nontender. No organomegaly. EXTREMITIES: No edema. NEUROLOGICAL: Awake and alert. Follows simple command. MEDICATIONS: Reviewed and noted. No new changes in medications reported since yesterday. LABORATORY DATA: Reviewed and shows hemoglobin 8.9, hematocrit 27.6, WBC 10.4, platelet is 420. Sodium 138, potassium 4, chloride 100, bicarbonate 28, BUN 9, creatinine 1.2, glucose 105, calcium is 9.5. IMPRESSION AND PLAN: Status post gastrointestinal bleed with recurrent gastric ulcer, status post EGD showing nonbleeding ulcers, atrial fibrillation, coronary artery disease, chronic obstructive lung disease, suspected sleep apnea syndrome, urinary tract infection, severe anemia. Pulmonary point of view, she is doing well. Continue therapy. Will need full pulmonary function test, attended sleep study upon discharge. Follow up H&H. Thank you and we will follow with you. Brittany Arciniega MD
== END 2017-12-16 15:42 | disposition home or self-care (01) | DRG 378 ==
LOC: UNDOADMIN 13:36 → TRCU 13:36
PROVIDERS: ADMIT Internal Medicine; ATTEND Internal Medicine
PROC: F07Z9ZZ Gait Training/Functional Ambulation Treatment (ICD-10-PCS; principal; 2017-12-13)
PROC: F08Z4ZZ Home Management Treatment (ICD-10-PCS; 2017-12-13)
DX: K25.4 Chronic or unspecified gastric ulcer with hemorrhage (principal); N39.0 Urinary tract infection, site not specified; K22.10 Ulcer of esophagus without bleeding; D64.9 Anemia, unspecified; I48.0 Paroxysmal atrial fibrillation; I25.10 Atherosclerotic heart disease of native coronary artery without angina pectoris; I50.9 Heart failure, unspecified; I11.0 Hypertensive heart disease with heart failure; B96.1 Klebsiella pneumoniae [K. pneumoniae] as the cause of diseases classified elsewhere; G56.00 Carpal tunnel syndrome, unspecified upper limb; F43.22 Adjustment disorder with anxiety; H04.123 Dry eye syndrome of bilateral lacrimal glands; M10.9 Gout, unspecified; E78.00 Pure hypercholesterolemia, unspecified; J44.9 Chronic obstructive pulmonary disease, unspecified; M17.10 Unilateral primary osteoarthritis, unspecified knee; Z95.2 Presence of prosthetic heart valve; Z87.891 Personal history of nicotine dependence

== ENCOUNTER 2017-12-27 12:31 | Emergency (ER) | payer MEDICARE ==
[2017-12-27 12:35] VITALS: BMI 25.3
[2017-12-27 12:37] VITALS: TEMP 98.2
--- NOTE | 2017-12-27 13:01 | ED PDOC ---
Arrival/HPI - General Chief Complaint: Upper Extremity Problem/Injury Time Seen by Provider: 12/27/17 12:41 Historian: Patient - History of Present Illness Narrative History of Present Illness (Text): 12/27/17 12:58 A 62 year old female, whose past medical history includes paroxysmal atrial fibrillation, hypertension, CAD, mitral valve repair, COPD, carpal tunnel syndrome, and bunion surgery, presents to the emergency department complaining of left hand and wrist pain for approximately 2 weeks. Patient reports she recently had open heart surgery and was admitted for 22 days (discharged ). Patient had been given Coumadin and Eliquis during s/p surgery. During admission, patient stated the IV in her left hand was painful and had asked a nurse to have it taken out but the request was denied. Patient believes this may have been what causing pain and swelling to left hand/wrist. Patient denies any trauma to hand, chest pain, shortness of breath, nausea, vomiting, fever, or any other complaints at this time. Also, patient denies any history of EtOH consumption or smoking. PMD: Dr. Guerra Past Medical History - Provider Review Nursing Documentation Reviewed: Yes - Infectious Disease Hx of Infectious Diseases: None - Tetanus Immunization Tetanus Immunization: Unknown - Past Medical History Past Medical History: No Previous - Cardiac Hx Cardiac Disorders: Yes (Mitral Valve Repair.) Hx Congestive Heart Failure: Yes Hx Hypertension: Yes - Pulmonary Hx Chronic Obstructive Pulmonary Disease (COPD): Yes - Neurological Hx Neurological Disorder: Yes Hx Dizziness: Yes Hx Migraine: Yes - HEENT Hx HEENT Disorder: No - Renal Hx Renal Disorder: No - Endocrine/Metabolic Hx Endocrine Disorders: No - Hematological/Oncological Hx Blood Disorders: Yes (H/o blood transfusions.) Hx Anemia: Yes - Integumentary Hx Dermatological Disorder: No - Musculoskeletal/Rheumatological Hx Falls: Yes (past) - Gastrointestinal Hx Gastrointestinal Disorders: Yes (gi bleed, black stools) - Genitourinary/Gynecological Hx Genitourinary Disorders: Yes (hx esbl urine 12/03/17) Hx Reproductive Disorders: No - Psychiatric Hx Psychophysiologic Disorder: Yes (Social drinker.) Hx Anxiety: Yes Hx Depression: Yes Hx Substance Use: No (Denied by pt.) - Surgical History Hx Cardiac Catheterization: Yes Hx Cholecystectomy: Yes Hx Open Heart Surgery: Yes (Mitral Valve Repair.) Hx Orthopedic Surgery: Yes (B/L Bunion Sx; Left Carpal Tunnel Sx.) - Anesthesia Hx Anesthesia: Yes Hx Anesthesia Reactions: No Hx Malignant Hyperthermia: No - Suicidal Assessment Feels Threatened In Home Enviroment: No Family/Social History - Physician Review Nursing Documentation Reviewed: Yes Family/Social History: No Known Family HX Smoking Status: Never Smoked Hx Alcohol Use: Yes (Social drinker.) Amount per day: 6 Hx Substance Use: No (Denied by pt.) Hx Substance Use Treatment: No Allergies/Home Meds Allergies/Adverse Reactions: Allergies cinnamon Allergy (Intermediate, Verified 12/07/17 21:48) ANAPHYLAXIS Home Medications: Home Meds Medication Instructions Recorded Confirmed Simvastatin [Zocor] 20 mg PO HS 08/20/17 12/27/17 Budesonide/Formoterol Fumarate 1 aer IH DAILY 11/26/17 12/27/17 [Symbicort 80-4.5 Mcg Inhaler] Cholecalciferol [Vitamin D 1000 IU] 50,000 iu PO QWK 11/26/17 12/27/17 Diltiazem HCl [Cartia Xt] 120 mg PO DAILY 11/26/17 12/27/17 Ferrous Sulfate [Feosol] 325 mg PO BID 11/26/17 12/27/17 Furosemide [Lasix] 20 mg PO DAILY 11/26/17 12/27/17 Loratadine [Claritin] 10 mg PO DAILY 11/26/17 12/27/17 Review of Systems - Physician Review All systems were reviewed & negative as marked: Yes - Review of Systems Constitutional: absent: Fevers, Other (no trauma to left hand) Respiratory: absent: SOB Cardiovascular: absent: Chest Pain Gastrointestinal: absent: Nausea, Vomiting Musculoskeletal: Joint Swelling (swelling to 3rd digit left hand), Other (left hand and wrist pain) Physical Exam Vital Signs Reviewed: Yes Vital Signs Temp Pulse Resp BP Pulse Ox 12/27/17 16:21 85 18 124/80 97 12/27/17 15:19 88 17 125/82 98 12/27/17 12:36 98.2 F 91 H 18 123/86 96 Temperature: Afebrile Blood Pressure: Normal Pulse: Regular Respiratory Rate: Normal Appearance: Positive for: Well-Appearing Pain Distress: None Mental Status: Positive for: Alert and Oriented X 3 - Systems Exam Respiratory/Chest: Present: Clear to Auscultation, Good Air Exchange. No: Respiratory Distress, Accessory Muscle Use Cardiovascular: Present: Regular Rate and Rhythm, Normal S1, S2. No: Murmurs Abdomen: No: Tenderness, Distention, Peritoneal Signs Upper Extremity: Present: Swelling (swelling to left hand (3rd digit and dorsal aspect of hand)), Other (2nd digit (index finger) left hand callus) Lower Extremity: Present: Normal Inspection. No: Edema Neurological: Present: GCS=15, CN II-XII Intact, Speech Normal Skin: Present: Warm, Dry, Normal Color. No: Rashes Psychiatric: Present: Alert, Oriented x 3, Normal Insight, Normal Concentration Medical Decision Making ED Course and Treatment: 12/27/17 13:02 Impression: 62 year old female with left hand and wrist pain. Physical exam shows left hand swelling (3rd digit and dorsal aspect of hand); and callus to 2nd digit of left hand (index finger). Plan: -- Upper Extremity Ultrasound -- Left Forearm X-Ray -- Left Hand X-Ray -- Labs -- Reassess and disposition Prior Visits: Notes and results from previous visits were reviewed. Patient was last seen in the emergency department on 12/07/2017 for rectal bleeding. Patient was admitted to ICU for GI bleed. Progress Notes: 12/27/2017 15:41 Left Forearm X-Ray IMPRESSION: Unremarkable radiographs of the left forearm. Dictator: Fabricio Dick MD 12/27/2017 15:41 Left Hand X-Ray IMPRESSION: No demonstrated fracture or dislocation. Dictator: Fabricio Dick MD 12/27/2017 16:17 Upper Extremity Ultrasound IMPRESSION: 1. No sonographic evidence for deep venous thrombosis in the visualized segments of the left upper extremity. Dictator: John Vera MD - Lab Interpretations Lab Results: 12/27/17 13:35 12/27/17 13:35 Lab Results 12/27/17 13:35: Sodium 139, Potassium 4.3, Chloride 102, Carbon Dioxide 23, Anion Gap 20, BUN 12, Creatinine 1.0, Est GFR ( Amer) > 60, Est GFR (Non- Af Amer) 56, Random Glucose 100, Calcium 9.2, Total Bilirubin 0.2, AST 23, ALT 18, Alkaline Phosphatase 132 H D, Total Protein 7.1, Albumin 3.8, Globulin 3.3, Albumin/Globulin Ratio 1.1 12/27/17 13:35: Uric Acid 9.3 H 12/27/17 13:35: PT 12.1, INR 1.06, APTT 31.3 12/27/17 13:35: WBC 8.3 D, RBC 3.51, Hgb 10.3 L, Hct 31.1 L, MCV 88.6, MCH 29.3 , MCHC 33.1, RDW 14.7 H, Plt Count 321, MPV 9.0, Gran % 54.0, Lymph % (Auto) 22.6, [place] % (Auto) 9.6 H, Eos % (Auto) 13.3 H, Baso % (Auto) 0.5, Gran # 4.47, Lymph # (Auto) 1.9, [place] # (Auto) 0.8 H, Eos # (Auto) 1.1 H, Baso # (Auto) 0.04 , ESR 96 H I have reviewed the lab results: Yes - RAD Interpretation Radiology Orders: 12/27/17 12:56 FOREARM LEFT [RAD] Stat HAND LEFT 3 VIEWS ROUTINE [RAD] Stat DUPLEX UPPER EXTRM VEIN LEFT [US] Stat - Scribe Statement The provider has reviewed the documentation as recorded by the Robert Zamudio Provider Scribe Attestation: All medical record entries made by the Scribe were at my direction and personally dictated by me. I have reviewed the chart and agree that the record accurately reflects my personal performance of the history, physical exam, medical decision making, and the department course for this patient. I have also personally directed, reviewed, and agree with the discharge instructions and disposition. Disposition/Present on Arrival - Present on Arrival Any Indicators Present on Arrival: No History of DVT/PE: No History of Uncontrolled Diabetes: No Urinary Catheter: No History of Decub. Ulcer: No History Surgical Site Infection Following: None - Disposition Have Diagnosis and Disposition been Completed?: Yes Diagnosis: Gout Disposition: HOME/ ROUTINE Disposition Time: 16:04 Patient Plan: Discharge Patient Problems: Current Active Problems Problem Status Onset Gout Acute Condition: GOOD Discharge Instructions (ExitCare): Lifestyle Changes to Manage Gout, Gout (DC) Additional Instructions: Please see a telephone cleaner for a second opinion and confirmation of gout as a diagnosis. Dr. Wilver Meeks, Music Librarian in [place]. [phone]. Referrals: Baltazar Guerra MD [Primary Care Provider] - Follow up with primary Forms: [employer] (Burmese)
[2017-12-27 13:48] LABS: BASO # 0.04 K/mm3 (0.0-2.0); BASO % 0.5 % (0.0-3.0); EOS # 1.1 (0.0-0.7); EOS % 13.3 % (1.5-5.0); GRAN # 4.47 (1.4-6.5); HEMOGLOBIN 10.3 g/dL (12.0-16.0); LYMPH # 1.9 (1.2-3.4); LYMPH % 22.6 % (22.0-35.0); MEAN CELL VOLUME 88.6 fl (80.0-105.0); MEAN CORPUSCULAR HEMOGLOBIN 29.3 pg (25.0-35.0); MEAN CORPUSCULAR HGB CONC 33.1 g/dl (31.0-37.0); MONO # 0.8 (0.1-0.6); MONO % 9.6 % (1.0-6.0); RBC 3.51 10^6/uL (3.5-6.1); RED CELL DISTRIBUTION WIDTH 14.7 % (11.5-14.5); WHITE BLOOD COUNT 8.3 10^3/ul (4.5-11.0)
[2017-12-27 13:59] LABS: INR 1.06 (0.93-1.08); PARTIAL THROMBOPLASTIN TIME 31.3 Seconds (25.1-36.5); PROTHROMBIN TIME 12.1 SECONDS (9.4-12.5)
[2017-12-27 15:02] LABS: ALB/GLOB RATIO 1.1 (1.1-1.8); ALBUMIN 3.8 g/dL (3.0-4.8); ALT/SGPT 18 U/L (7-56); AST/SGOT 23 U/L (14-36); BLOOD UREA NITROGEN 12 mg/dL (7-21); CALCIUM 9.2 mg/dL (8.4-10.5); GFR AFRICAN-AMERICAN > 60; GFR NON-AFRICAN AMERICAN 56
--- NOTE | 2017-12-27 15:42 | RAD ---
PROCEDURE: Left Hand Radiographs. HISTORY: Swelling Distal Tip #2// PIP, DIP #3//[place] COMPARISON: None. FINDINGS: BONES: No acute fracture. JOINTS: Joint space narrowing. SOFT TISSUES: Normal. OTHER FINDINGS: None. IMPRESSION: No demonstrated fracture or dislocation.
--- NOTE | 2017-12-27 15:43 | RAD ---
PROCEDURE: Radiographs of the Left Forearm HISTORY: Swelling COMPARISON: None available. TECHNIQUE: Frontal and lateral views obtained. FINDINGS: BONES: No fracture or destructive lesion. JOINT SPACES: Unremarkable. OTHER FINDINGS: None. IMPRESSION: Unremarkable radiographs of the left forearm.
--- NOTE | 2017-12-27 16:19 | US ---
PROCEDURE: Left upper extremity venous ultrasound HISTORY: Arm pain and swelling. Evaluate for deep venous thrombosis. PHYSICIAN(S): John Vera MD. FINDINGS: The visualized leftinternal jugular vein is small in caliber but otherwise sonographically normal and compressible. No evidence of obstruction or thrombus is seen. The visualized segments of the left subclavian vein are patent with normal waveforms. No sonographic evidence of obstruction or thrombosis is seen. The visualized deep venous system of the proximal leftupper extremity is sonographically normal and compressible. IMPRESSION: 1. No sonographic evidence for deep venous thrombosis in the visualized segments of the left upper extremity.
[2017-12-27 16:22] VITALS: BP 124/80; PULSE 85; RESP 18; O2SAT 97
== END 2017-12-27 16:22 | disposition home or self-care (01) ==
LOC: ED 12:31
DX: M10.9 Gout, unspecified (principal); I48.0 Paroxysmal atrial fibrillation; I10 Essential (primary) hypertension; I25.10 Atherosclerotic heart disease of native coronary artery without angina pectoris; I50.9 Heart failure, unspecified; J44.9 Chronic obstructive pulmonary disease, unspecified

== ENCOUNTER 2018-01-02 14:14 | Inpatient (IN) | payer OTHER, MEDICARE ==
[2018-01-02 14:15] VITALS: BMI 25.3
[2018-01-02] MEDS ORDERED: Sodium Chloride 0.9% 1,000 ML IV STA (14:24)
[2018-01-02] MEDS ORDERED: Morphine 4 mg/ml ISec IM STA (14:24)
[2018-01-02] MEDS ORDERED: TDAP Vaccine 0.5 mL Syr IM ONE (14:44)
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
[2018-01-02] MEDS ORDERED: Morphine 4 mg/ml ISec IVP STA (15:06)
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
--- NOTE | 2018-01-02 16:59 | RAD ---
PROCEDURE: CHEST RADIOGRAPH, 1 VIEW HISTORY: chest pain COMPARISON: Portable chest 12/13/2017 FINDINGS: LUNGS: No infiltrates bilaterally. Improved aeration noted bilaterally. PLEURA: No pneumothorax or pleural fluid seen. CARDIOVASCULAR: Stable cardiomegaly. No pulmonary vascular congestion. OSSEOUS STRUCTURES: Sternotomy hours again identified as well as mediastinal surgical clips status post CABG most likely. VISUALIZED UPPER ABDOMEN: Normal. OTHER FINDINGS: None. IMPRESSION: Stable cardiomegaly. No acute infiltrate or pleural effusion. No pulmonary vascular congestion. Improved aeration noted in the interval.
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
--- NOTE | 2018-01-02 17:49 | RAD ---
PROCEDURE: Left Knee Radiographs. HISTORY: Pain. COMPARISON: None. FINDINGS: BONES: There is an acute longitudinal intertrochanteric fracture in the lateral tibial plateau. JOINTS: Normal. No osteoarthritis. JOINT EFFUSION: There is a large suprapatellar effusion with fat fluid level. OTHER FINDINGS: There is prepatellar soft tissue swelling. IMPRESSION: Acute longitudinal intra-articular lateral tibial plateau fracture and fat fluid level in the suprapatellar joint most compatible with lipohemarthrosis.
[2018-01-02 18:11] LABS: ALBUMIN 3.3 g/dL (3.0-4.8); ALT/SGPT 29 U/L (7-56); AST/SGOT 33 U/L (14-36); BLOOD UREA NITROGEN 14 mg/dL (7-21); CALCIUM 8.7 mg/dL (8.4-10.5); GFR AFRICAN-AMERICAN > 60; GFR NON-AFRICAN AMERICAN > 60
[2018-01-02 18:16] LABS: BASO # 0.02 K/mm3 (0.0-2.0); BASO % 0.1 % (0.0-3.0); EOS # 0.2 (0.0-0.7); EOS % 1.2 % (1.5-5.0); GRAN # 11.35 (1.4-6.5); GRAN % 83.5 % (50.0-68.0); HEMOGLOBIN 9.3 g/dL (12.0-16.0); LYMPH % 7.1 % (22.0-35.0); MEAN CELL VOLUME 87.2 fl (80.0-105.0); MEAN CORPUSCULAR HGB CONC 33.2 g/dl (31.0-37.0); MEAN PLATELET VOLUME 9.4 fl (7.0-11.0); MONO # 1.1 (0.1-0.6); MONO % 8.1 % (1.0-6.0); RBC 3.21 10^6/uL (3.5-6.1); RED CELL DISTRIBUTION WIDTH 14.6 % (11.5-14.5); WHITE BLOOD COUNT 13.6 10^3/ul (4.5-11.0)
[2018-01-02 18:31] LABS: INR 1.03 (0.93-1.08); PARTIAL THROMBOPLASTIN TIME 25.5 Seconds (25.1-36.5); PROTHROMBIN TIME 11.8 SECONDS (9.4-12.5)
[2018-01-02 19:01] LABS: URINE BILIRUBIN NEGATIVE (NEGATIVE); URINE BLOOD NEGATIVE (NEGATIVE); URINE GLUCOSE (UA) NEGATIVE (NEGATIVE); URINE LEUKOCYTE ESTERASE NEGATIVE Leu/uL (NEGATIVE); URINE PROTEIN NEGATIVE mg/dL (<30 mg/dL); URINE UROBILINOGEN 0.2 E.U./dL (<1 E.U./dL)
[2018-01-02 19:02] LABS: URINE APPEARANCE CLEAR (CLEAR); URINE COLOR YELLOW (YELLOW)
[2018-01-02] MEDS: Sodium Chloride 0.9% 1,000 ML IV SCH (19:57)
[2018-01-02] MEDS: Morphine 4 mg/ml ISec IVP PRN ×2 (20:05→23:59)
--- NOTE | 2018-01-02 22:02 | CARD ---
APPROVED REPORT EKG Measurement Heart [id number] MD 140P [id number] <Conclusion> Ectopic atrial rhythm Minimal voltage criteria for LVH, may be normal variant Cannot rule out Anterior infarct, age undetermined Abnormal ECG
[2018-01-03] MEDS: Morphine 4 mg/ml ISec IVP PRN ×2 (04:11→08:05)
[2018-01-03] MEDS: Sodium Chloride 0.9% 1,000 ML IV SCH ×3 (04:11→19:44)
[2018-01-03 07:44] LABS: HEMOGLOBIN 8.6 g/dL (12.0-16.0); MEAN CELL VOLUME 88.2 fl (80.0-105.0); MEAN CORPUSCULAR HGB CONC 32.8 g/dl (31.0-37.0); MEAN PLATELET VOLUME 9.6 fl (7.0-11.0); RBC 2.97 10^6/uL (3.5-6.1); RED CELL DISTRIBUTION WIDTH 14.8 % (11.5-14.5); WHITE BLOOD COUNT 9.7 10^3/ul (4.5-11.0)
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
[2018-01-03] MEDS: Levalbuterol 1.25 MG/3 ML Inhal Soln UD IH SCH ×3 (08:35→20:47)
[2018-01-03] MEDS ORDERED: Metoprolol 1 mg/ml Inj IVP ONE (08:38)
[2018-01-03] MEDS ORDERED: diltiaZEM 180 mg/24 Hours CD Cap PO SCH (10:00)
[2018-01-03] MEDS ORDERED: Cholecalciferol 1,000 INTLU TAB PO SCH (10:00)
[2018-01-03] MEDS ORDERED: Non Formulary Medication (Ferrous Sulfate [Feosol] 325 MG) PO SCH (10:00)
[2018-01-03] MEDS ORDERED: Ergocalciferol 50,000 Intl Units Cap PO SCH (10:00)
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
[2018-01-03] MEDS ORDERED: Propofol 10 mg/ml Inj (20 ML) ONE (11:10)
[2018-01-03] MEDS ORDERED: Midazolam 2 MG/2 ML VIAL ONE (11:10)
[2018-01-03] MEDS ORDERED: Rocuronium 10 mg/ml (5 ml) ONE ×2 (11:13→14:46)
[2018-01-03] MEDS ORDERED: Lidocaine 2% Inj (20ml) ONE (11:13)
[2018-01-03] MEDS: Pantoprazole 40 mg EC Tab PO SCH (11:30)
[2018-01-03] MEDS: Magnesium Oxide 400 mg Tab UD PO SCH (11:32)
[2018-01-03] MEDS: diltiaZEM 120 mg/24 Hours CD Cap PO SCH (11:33)
[2018-01-03] MEDS ORDERED: Bupivacaine 0.5% Inj(30mL) ONE (11:45)
[2018-01-03] MEDS ORDERED: Vancomycin 500mg in NS 500 MG/100 ML BAG IVPB STA (12:24)
--- NOTE | 2018-01-03 13:11 | RAD ---
PROCEDURE: Left Femur Radiographs. HISTORY: fracture COMPARISON: None. TECHNIQUE: AP and Lateral Radiographs of the left femur. FINDINGS: FEMUR: Comminuted predominately diagonal fracture proximal shaft left femur. . . There appears to be lateral displacement of the proximal fragment SOFT TISSUES: Normal. OTHER FINDINGS: None. IMPRESSION: Comminuted predominant diagonal fracture traversing proximal left femur
[2018-01-03] MEDS ORDERED: Neostigmine Methylsulfate 3mg/3ml Syringe IV ONE (15:58)
[2018-01-03] MEDS ORDERED: Glycopyrrolate 0.2 mg/ml (2ml vial) ONE (15:59)
[2018-01-03] MEDS ORDERED: HYDROmorphone 0.5 mg/0.5 ml ISec IVP PRN (16:46)
--- NOTE | 2018-01-03 16:46 | CT ---
PROCEDURE: CT of the left knee dated 01/03/2018 HISTORY: LEFT KNEE: tibial plateau fracture. COMPARISON: Comparison made with radiographs of the left knee dated 12/25/2017 TECHNIQUE: Contiguous helical/transaxial images of the left hip were obtained. Coronal and sagittal reformats were generated. This CT exam was performed using one or more of the following dose reduction techniques: Automated exposure control, adjustment of the mA and/or kV according to patient size, and/or use of iterative reconstruction technique. Radiation dose. Total DLP = 272.53 mGy was FINDINGS: BONES: No evidence of acute displaced fracture nor dislocation. The osseous structures appear intact. Note is made of a vague lucency in the lateral margin of the tibial plateau which probably represents variation of trabeculation pattern. LEFT KNEE JOINT: There is [id number] joint space narrowing medial compartment with subchondral sclerosis of the medial tibial plateau and to a and medial femoral condyles. . SOFT TISSUES: Small to medium-sized incompletely visualized left-sided suprapatellar joint effusion. IMPRESSION: No evidence of acute displaced fracture or dislocation left knee. Small to medium-sized incompletely visualized suprapatellar joint effusion.
--- NOTE | 2018-01-03 16:58 | PCM.SURG1 ---
Surgeon's Initial Post Op Note - Surgeon's Notes Surgeon: Anahi Garza MD [employer] Programmer: Bradley Monae PA-C Type of Anesthesia: General Endo Anesthesia Administered By: Dr. Mota Pre-Operative Diagnosis: Left subtroch fx Operative Findings: same Post-Operative Diagnosis: same Operation Performed: ORIF left subtrochanteric hip fx Specimen/Specimens Removed: none Estimated Blood Loss: EBL {In ML}: 200 Blood Products Given: N/A Drains Used: No Drains Post-Op Condition: Fair Date of Surgery/Procedure: 01/03/18 Time of Surgery/Procedure: 16:58
[2018-01-03] MEDS ORDERED: Sodium Chloride 0.9% 1,000 ML IV SCH (17:00)
[2018-01-03] MEDS ORDERED: HYDROmorphone 0.5 mg/0.5 ml ISec IVP ONE (17:45)
[2018-01-03] MEDS ORDERED: HYDROmorphone 0.5 mg/0.5 ml ISec ONE (17:53)
--- NOTE | 2018-01-03 18:09 | RAD ---
PROCEDURE: Left femur x-rays HISTORY: pt in PACU, s/p ORIF left femur COMPARISON: Left femur x-rays 01/03/2018 at 10:39 a.m. TECHNIQUE: AP and lateral views of the left femur obtained. FINDINGS: Patient is status post intramedullary red and screw fixation of a proximal femur fracture. Fracture fragments are in near anatomic alignment. No dislocation is seen. No evidence of hardware failure. Subcutaneous emphysema and soft tissue swelling noted in the soft tissues of the lateral aspect of the hip and thigh. IMPRESSION: Status post intramedullary red and screw fixation of a left femur fracture.
--- NOTE | 2018-01-03 19:16 | RAD ---
PROCEDURE: Fluoroscopy up to 1 hr. HISTORY: O.R.I.F. LEFT FEMUR COMPARISON: None TECHNIQUE: Standard protocol for this study/examination. FINDINGS: Total fluoroscopic time (continuous mode) utilized during the procedure (seconds) 345.5 Total exam DLP: (mGy) 47.14. IMPRESSION: Less than 1 hr fluoroscopic time utilized during performance of the procedure.
[2018-01-03 20:26] LABS: HEMOGLOBIN 9.5 g/dL (12.0-16.0)
[2018-01-03] MEDS ORDERED: ceFAZolin 2 GM in Sodium Chloride 0.9% 100 ML IVPB SCH (21:00)
[2018-01-03] MEDS ORDERED: Non Formulary Medication (Simvastatin [Zocor] 20 MG) PO SCH (22:00)
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
[2018-01-04] MEDS: Vancomycin 1gm in NS 250ml 1 GM/250 ML BAG IVPB SCH ×3 (01:35→23:16)
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
[2018-01-04] MEDS: Morphine 4 mg/ml ISec IVP PRN ×3 (07:20→22:37)
[2018-01-04 07:45] LABS: MEAN CELL VOLUME 86.4 fl (80.0-105.0); MEAN CORPUSCULAR HEMOGLOBIN 29.3 pg (25.0-35.0); MEAN CORPUSCULAR HGB CONC 33.9 g/dl (31.0-37.0); MEAN PLATELET VOLUME 9.5 fl (7.0-11.0); RBC 2.73 10^6/uL (3.5-6.1); RED CELL DISTRIBUTION WIDTH 15.3 % (11.5-14.5); WHITE BLOOD COUNT 12.3 10^3/ul (4.5-11.0)
[2018-01-04 07:50] LABS: ALB/GLOB RATIO 0.9 (1.1-1.8); ALBUMIN 2.5 g/dL (3.0-4.8); ALT/SGPT 23 U/L (7-56); AST/SGOT 32 U/L (14-36); BLOOD UREA NITROGEN 14 mg/dL (7-21); CALCIUM 7.8 mg/dL (8.4-10.5); GFR AFRICAN-AMERICAN > 60; GFR NON-AFRICAN AMERICAN > 60
[2018-01-04] MEDS: diltiaZEM 120 mg/24 Hours CD Cap PO SCH (09:06)
[2018-01-04] MEDS: Pantoprazole 40 mg EC Tab PO SCH (09:07)
[2018-01-04] MEDS: Magnesium Oxide 400 mg Tab UD PO SCH (09:07)
[2018-01-04] MEDS: Sodium Chloride 0.9% 1,000 ML IV SCH ×2 (09:15→22:31)
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
--- NOTE | 2018-01-04 09:49 | CP.PCM.PN ---
Subjective - Date & Time of Evaluation Date of Evaluation: 01/04/18 Time of Evaluation: 09:47 - Subjective Subjective: Pt awake, alert. Adequate pain control. T 99.5 LLE: dressing clean and intact ROSA with good seal immobilizer in place NVI distally Hg 8.0 WBC 12.3 POD#1 D/c terrazas MRI L knee will discuss with medicine transfusion Objective - Vital Signs/Intake and Output Vital Signs (last 24 hours): Temp Pulse Resp BP Pulse Ox 97.9 F 107 H 15 130/94 H 97 01/03/18 16:45 01/04/18 09:06 01/03/18 18:00 01/03/18 18:00 01/03/18 18:00 Intake and Output: 01/04/18 01/04/18 06:59 18:59 Intake Total 2250 Output Total 2400 Balance -150 - Medications Medications: Current Medications Alprazolam (Xanax) 0.25 mg PO BID PRN; Protocol PRN Reason: Anxiety Stop: 01/10/18 10:01 Last Admin: 01/03/18 09:51 Dose: 0.25 mg Atorvastatin Calcium (Lipitor) 10 mg PO DIN [facility] Last Admin: 01/03/18 19:10 Dose: 10 mg Diltiazem HCl (Cardizem Cd) 120 mg PO DAILY [facility] Last Admin: 01/04/18 09:06 Dose: 120 mg Ergocalciferol (Drisdol 50,000 Intl Units Cap) 1 cap PO Q7D [facility] Last Admin: 01/03/18 11:33 Dose: 1 cap Famotidine (Pepcid) 40 mg PO HS [facility] Last Admin: 01/03/18 22:27 Dose: 40 mg Ferrous Sulfate (Feosol) 324 mg PO BID [facility] Last Admin: 01/04/18 09:06 Dose: 324 mg Furosemide (Lasix) 20 mg PO DAILY [facility] Last Admin: 01/03/18 11:30 Dose: 20 mg Vancomycin HCl (Vancomycin 1gm) 1 gm in 250 mls @ 167 mls/hr IVPB Q12H [facility] PRN Reason: Protocol Stop: 01/05/18 02:30 Last Admin: 01/04/18 01:35 Dose: 167 mls/hr Sodium Chloride (Sodium Chloride 0.9%) 1,000 mls @ 75 mls/hr IV .[id number] [facility] Last Admin: 01/04/18 09:15 Dose: 75 mls/hr Levalbuterol HCl (Xopenex) 1.25 mg IH TIDRESP [facility] Last Admin: 01/03/18 20:47 Dose: 1.25 mg Loratadine (Claritin) 10 mg PO DAILY [facility] Last Admin: 01/04/18 09:06 Dose: 10 mg Magnesium Oxide (Mag-Ox) 400 mg PO DAILY [facility] Last Admin: 01/04/18 09:07 Dose: 400 mg Metoprolol Tartrate (Lopressor) 50 mg PO BRKDIN [facility] Last Admin: 01/04/18 08:55 Dose: 50 mg Montelukast Sodium (Singulair) 10 mg PO HS [facility] Last Admin: 01/03/18 22:27 Dose: 10 mg Morphine Sulfate (Morphine) 4 mg IVP Q4H PRN PRN Reason: Pain, moderate (4-7) Last Admin: 01/04/18 07:20 Dose: 4 mg Pantoprazole Sodium (Protonix Ec Tab) 40 mg PO DAILY [facility] Last Admin: 01/04/18 09:07 Dose: 40 mg - Labs Labs: 01/04/18 07:00 01/04/18 07:00 PT 11.8 SECONDS (9.4-12.5) 01/02/18 17:10 INR 1.03 (0.93-1.08) 01/02/18 17:10 APTT 25.5 Seconds (25.1-36.5) 01/02/18 17:10
[2018-01-04] MEDS ORDERED: Enoxaparin 40 mg Syringe SC SCH ×2 (14:00→14:15)
[2018-01-04] MEDS: Levalbuterol 1.25 MG/3 ML Inhal Soln UD IH SCH ×2 (14:05→19:55)
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
[2018-01-05 07:25] LABS: HEMOGLOBIN 9.1 g/dL (12.0-16.0); MEAN CELL VOLUME 87.9 fl (80.0-105.0); MEAN CORPUSCULAR HEMOGLOBIN 29.7 pg (25.0-35.0); MEAN CORPUSCULAR HGB CONC 33.8 g/dl (31.0-37.0); RBC 3.06 10^6/uL (3.5-6.1); RED CELL DISTRIBUTION WIDTH 15.3 % (11.5-14.5); WHITE BLOOD COUNT 15.3 10^3/ul (4.5-11.0)
[2018-01-05] MEDS: Levalbuterol 1.25 MG/3 ML Inhal Soln UD IH SCH ×3 (07:35→19:29)
--- NOTE | 2018-01-05 07:41 | CP.PCM.PN ---
Subjective - Date & Time of Evaluation Date of Evaluation: 01/04/18 Time of Evaluation: 20:20 - Subjective Subjective: blood drwan. Objective - Vital Signs/Intake and Output Vital Signs (last 24 hours): Temp Pulse Resp BP Pulse Ox 98.7 F 87 19 110/74 97 01/04/18 18:00 01/04/18 22:00 01/04/18 18:00 01/04/18 18:00 01/03/18 18:00 Intake and Output: 01/05/18 01/05/18 06:59 18:59 Intake Total 480 Balance 480 - Medications Medications: Current Medications Alprazolam (Xanax) 0.25 mg PO BID PRN; Protocol PRN Reason: Anxiety Stop: 01/10/18 10:01 Last Admin: 01/03/18 09:51 Dose: 0.25 mg Atorvastatin Calcium (Lipitor) 10 mg PO DIN [facility] Last Admin: 01/04/18 17:30 Dose: 10 mg Diltiazem HCl (Cardizem Cd) 120 mg PO DAILY [facility] Last Admin: 01/04/18 09:06 Dose: 120 mg Enoxaparin Sodium (Lovenox) 40 mg SC DAILY [facility] PRN Reason: Protocol Ergocalciferol (Drisdol 50,000 Intl Units Cap) 1 cap PO Q7D [facility] Last Admin: 01/03/18 11:33 Dose: 1 cap Famotidine (Pepcid) 40 mg PO HS [facility] Last Admin: 01/04/18 22:31 Dose: 40 mg Ferrous Sulfate (Feosol) 324 mg PO BID [facility] Last Admin: 01/04/18 17:30 Dose: 324 mg Furosemide (Lasix) 20 mg PO DAILY [facility] Last Admin: 01/04/18 13:32 Dose: 20 mg Sodium Chloride (Sodium Chloride 0.9%) 1,000 mls @ 75 mls/hr IV .[id number] [facility] Last Admin: 01/04/18 22:31 Dose: 75 mls/hr Levalbuterol HCl (Xopenex) 1.25 mg IH TIDRESP [facility] Last Admin: 01/05/18 07:35 Dose: 1.25 mg Loratadine (Claritin) 10 mg PO DAILY [facility] Last Admin: 01/04/18 09:06 Dose: 10 mg Magnesium Oxide (Mag-Ox) 400 mg PO DAILY [facility] Last Admin: 01/04/18 09:07 Dose: 400 mg Metoprolol Tartrate (Lopressor) 50 mg PO BRKDIN [facility] Last Admin: 01/04/18 17:30 Dose: 50 mg Montelukast Sodium (Singulair) 10 mg PO HS [facility] Last Admin: 01/04/18 22:31 Dose: 10 mg Morphine Sulfate (Morphine) 4 mg IVP Q4H PRN PRN Reason: Pain, moderate (4-7) Last Admin: 01/04/18 22:37 Dose: 4 mg Pantoprazole Sodium (Protonix Ec Tab) 40 mg PO DAILY [facility] Last Admin: 01/04/18 09:07 Dose: 40 mg - Labs Labs: 01/04/18 07:00 01/04/18 07:00 PT 11.8 SECONDS (9.4-12.5) 01/02/18 17:10 INR 1.03 (0.93-1.08) 01/02/18 17:10 APTT 25.5 Seconds (25.1-36.5) 01/02/18 17:10
[2018-01-05 07:45] LABS: ALB/GLOB RATIO 0.9 (1.1-1.8); ALBUMIN 2.7 g/dL (3.0-4.8); ALT/SGPT 19 U/L (7-56); AST/SGOT 35 U/L (14-36); BLOOD UREA NITROGEN 15 mg/dL (7-21); CALCIUM 8.5 mg/dL (8.4-10.5); GFR AFRICAN-AMERICAN > 60; GFR NON-AFRICAN AMERICAN 56
[2018-01-05] MEDS: diltiaZEM 120 mg/24 Hours CD Cap PO SCH (09:59)
[2018-01-05] MEDS: Pantoprazole 40 mg EC Tab PO SCH (10:00)
[2018-01-05] MEDS: Magnesium Oxide 400 mg Tab UD PO SCH (10:00)
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
[2018-01-05] MEDS: Enoxaparin 40 mg Syringe SC SCH (14:27)
[2018-01-05] MEDS: Sodium Chloride 0.9% 1,000 ML IV SCH (14:35)
[2018-01-05] MEDS: Morphine 4 mg/ml ISec IVP PRN ×2 (14:56→23:29)
--- NOTE | 2018-01-05 16:11 | PN ---
DATE: 01/04/2018 SUBJECTIVE: The patient is comfortable. She does not complain of any left hip pain at this time. She is lying with her friends around. No respiratory distress. No nausea. No vomiting. PHYSICAL EXAMINATION: As follows; VITAL SIGNS: Temperature 98.2, heart rate 84, blood pressure 108/60, respirations 18. HEAD AND NECK: Normal. No JVD. No thyromegaly. CHEST: Clear bilaterally. CARDIAC: First sound and second sound normal. ABDOMEN: Soft, nontender. EXTREMITIES: No edema. SCD is on and the patient initially refused Lovenox, she is getting it now. LABORATORY STUDY: White count 12.3, hemoglobin 8, hematocrit 23.6, platelets 158. Chemistry: Sodium 137, potassium 3.8, chloride 105, bicarb 20, BUN 15, creatinine 1, blood sugar 127. Liver function test is normal except alkaline phos 134. IMPRESSION: 1. Status post left hip open reduction and internal fixation. Continue current therapy. Continue deep venous thrombosis, Lovenox, the patient agreed to take it. Continue sequential compression devices. 2. Chronic obstructive pulmonary disease, stable. 3. History of mitral valve biologic valve. Seen by Cardiology, Dr. Rouse. Metoprolol is increased from 25 to 50 mg b.i.d. 4. Paroxysmal atrial fibrillation, stable. Sinus, atrial premature complexes. Continue metoprolol plus Cardizem. 5. Anemia, stable. The patient will get transfusion 2 units. Continue that. Discuss with the Hematology/Oncology, Dr. Jimenez, he will take care of that. Continue Protonix and Pepcid IV. Continue current therapy. We will follow up clinically. Noted white count is elevated. We will repeat it and we may consider Infectious Disease consult as the patient has no fever really. We will monitor it and we will see. Baltazar Guerra MD
--- NOTE | 2018-01-05 20:28 | PN ---
DATE: 01/03/2018 SUBJECTIVE: Patient seems doing well postoperatively, has been seen by multiple specialists. She has mild pain, otherwise seems doing well. PHYSICAL EXAMINATION: On 01/03/2018, is as follows: VITAL SIGNS: Temperature is 97.9, heart rate 118, blood pressure 147/89, respirations 18, and saturation 98% on 2 L. HEAD AND NECK: Normal. No JVD. No thyromegaly. CHEST: Clear bilaterally. CARDIAC: First sound and second sound normal. ABDOMEN: Soft, nontender. EXTREMITIES: There is no edema in the right leg. Left leg is wrapped with and left hip has dressing postoperatively. NEUROLOGIC: Normal. LABORATORY STUDIES: White count 9.7, hemoglobin 8.6, hematocrit 26.2, platelets 243. IMPRESSION AND PLAN: 1. Left hip fracture, left knee fracture, plateau fracture, post required surgery at this time on the left hip was done open reduction and internal fixation with Dr. Vines whom I spoke with. Patient can have deep venous thrombosis prophylaxis, Lovenox 40 subcu. We will keep transfuse the patient as needed. Discussed with Dr. Jimenez for transfusions. Preferably, we will try to see if we can give. 2. Paroxysmal atrial fibrillation. Patient is stable. She has multiple , otherwise no atrial fibrillation noted. Continue current regimen. 3. Anemia, requiring transfusions. History of gastrointestinal bleed, stable. Continue IV Protonix. 4. Mitral valve biologic valve. She is stable. Continue current treatment. 5. Chronic obstructive pulmonary disease, stable. Continue nebulizer treatment. CURRENT MEDICATIONS: Cardizem CD 120 daily, Claritin 10, vitamin D, iron pills, Feosol, Lasix 20 p.o. daily, Lipitor 10 once a day, Lopressor 50 b.i.d., Lovenox 40 subcu, mag oxide b.i.d., morphine p.r.n., Pepcid 40 at bedtime, Protonix 40 once a day, Singulair, IV fluids, Tylenol p.r.n., Xanax 0.25 b.i.d. p.r.n. for anxiety, and Xopenex four times a day. Continue current regimen. Discussed with patient's old labs. Baltazar Guerra MD
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
[2018-01-05] MEDS: Meropenem IV 1 gm in NS 50 ML IVPB SCH (22:59)
[2018-01-05] MEDS: Linezolid 600 mg in D5W 300 ml 600 MG/300 ML BAG IVPB SCH (23:00)
[2018-01-06] MEDS: Meropenem IV 1 gm in NS 50 ML IVPB SCH ×3 (06:33→22:22)
[2018-01-06] MEDS: Sodium Chloride 0.9% 1,000 ML IV SCH ×2 (06:36→10:30)
[2018-01-06] MEDS: Morphine 4 mg/ml ISec IVP PRN ×3 (06:41→19:00)
[2018-01-06 07:25] LABS: ALB/GLOB RATIO 0.8 (1.1-1.8); ALBUMIN 2.6 g/dL (3.0-4.8); CALCIUM 8.5 mg/dL (8.4-10.5)
[2018-01-06 07:28] LABS: MEAN CELL VOLUME 86.9 fl (80.0-105.0); MEAN CORPUSCULAR HEMOGLOBIN 29.5 pg (25.0-35.0); MEAN PLATELET VOLUME 9.4 fl (7.0-11.0); RBC 3.05 10^6/uL (3.5-6.1); RED CELL DISTRIBUTION WIDTH 15.2 % (11.5-14.5); WHITE BLOOD COUNT 11.3 10^3/ul (4.5-11.0)
[2018-01-06] MEDS: Levalbuterol 1.25 MG/3 ML Inhal Soln UD IH SCH ×3 (07:35→19:56)
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
[2018-01-06] MEDS ORDERED: Potassium Chloride 20 mEq ER Tab PO ONE (08:44)
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
[2018-01-06] MEDS: Magnesium Oxide 400 mg Tab UD PO SCH (09:22)
[2018-01-06] MEDS: Enoxaparin 40 mg Syringe SC SCH (09:22)
[2018-01-06] MEDS: Pantoprazole 40 mg EC Tab PO SCH (09:23)
[2018-01-06] MEDS: diltiaZEM 120 mg/24 Hours CD Cap PO SCH (09:23)
[2018-01-06] MEDS: Linezolid 600 mg in D5W 300 ml 600 MG/300 ML BAG IVPB SCH ×2 (09:23→22:23)
--- NOTE | 2018-01-06 11:18 | RAD ---
HISTORY: inc wbc COMPARISON: No prior. FINDINGS: LUNGS: Poor inspiration with low lung volumes, crowded bronchovascular markings and suspected minor bibasilar atelectasis. There appears to be slightly improved pulmonary venous congestion. PLEURA: Questionable small left-sided effusion CARDIOVASCULAR: Sternotomy wires and prostatic valve replacements again noted. Heart remains enlarged OSSEOUS STRUCTURES: No significant abnormalities. VISUALIZED UPPER ABDOMEN: Normal. OTHER FINDINGS: None. IMPRESSION: Poor inspiration with low lung volumes, crowded bronchovascular markings and suspected minor bibasilar atelectasis. There appears to be slightly improved pulmonary venous congestion. . Questionable small left-sided effusion
--- NOTE | 2018-01-06 13:01 | CP.PCM.PN ---
Subjective - Date & Time of Evaluation Date of Evaluation: 01/06/18 Time of Evaluation: 08:35 - Subjective Subjective: Patient seen and examined at bedside. Patient alert and awake, sitting up in bed with knee immobilizer on. Patient states pain is controlled. MRI has not been completed, as patient been refusing. Patient agrees to MRI today. Afebrile WBC 11.3 Hgb 9.0 L hip: dressings and ROSA removed. Incision sites are clean, dry and intact. Incisions cleaned with NSS and new dry light dressings applied. +AROM foot and ankle. Sensation intact to light touch. Moderate knee effusion, diffuse tenderness to palpation. +DP pulse. Thigh and calf are soft and non-tender. NVI distally MRI today Cont NWB LLE Cont DVT prophylaxis Will follow up with MRI results Objective - Vital Signs/Intake and Output Vital Signs (last 24 hours): Temp Pulse Resp BP Pulse Ox 98.6 F 81 20 94/54 L 95 01/06/18 06:00 01/06/18 08:06 01/06/18 06:00 01/06/18 08:06 01/06/18 06:00 Intake and Output: 01/06/18 01/06/18 06:59 18:59 Intake Total 1320 Output Total 300 Balance 1020 - Medications Medications: Current Medications Acetaminophen (Tylenol 325mg Tab) 650 mg PO Q4H PRN PRN Reason: Pain, Mild (1-3) Alprazolam (Xanax) 0.25 mg PO BID PRN; Protocol PRN Reason: Anxiety Stop: 01/10/18 10:01 Last Admin: 01/03/18 09:51 Dose: 0.25 mg Atorvastatin Calcium (Lipitor) 10 mg PO DIN [facility] Last Admin: 01/05/18 17:23 Dose: 10 mg Diltiazem HCl (Cardizem Cd) 120 mg PO DAILY [facility] Last Admin: 01/05/18 09:59 Dose: 120 mg Enoxaparin Sodium (Lovenox) 40 mg SC DAILY [facility] PRN Reason: Protocol Last Admin: 01/05/18 14:27 Dose: 40 mg Ergocalciferol (Drisdol 50,000 Intl Units Cap) 1 cap PO Q7D [facility] Last Admin: 01/03/18 11:33 Dose: 1 cap Famotidine (Pepcid) 40 mg PO HS [facility] Last Admin: 01/05/18 23:01 Dose: 40 mg Ferrous Sulfate (Feosol) 324 mg PO BID [facility] Last Admin: 01/05/18 17:24 Dose: 324 mg Furosemide (Lasix) 20 mg PO DAILY [facility] Last Admin: 01/05/18 10:00 Dose: 20 mg Sodium Chloride (Sodium Chloride 0.9%) 1,000 mls @ 50 mls/hr IV .Q20H [facility] Last Admin: 01/06/18 06:36 Dose: 50 mls/hr Meropenem (Merrem Iv 1 Gm Premix) 50 mls @ 100 mls/hr IVPB Q8 [facility] PRN Reason: Protocol Stop: 01/14/18 22:16 Last Admin: 01/06/18 06:33 Dose: 100 mls/hr Linezolid (Zyvox 600mg/300ml D5w) 600 mg in 300 mls @ 200 mls/hr IVPB Q12 [facility] PRN Reason: Protocol Stop: 01/14/18 22:08 Last Admin: 01/05/18 23:00 Dose: 200 mls/hr Levalbuterol HCl (Xopenex) 1.25 mg IH TIDRESP [facility] Last Admin: 01/06/18 07:35 Dose: 1.25 mg Loratadine (Claritin) 10 mg PO DAILY [facility] Last Admin: 01/05/18 10:00 Dose: 10 mg Magnesium Oxide (Mag-Ox) 400 mg PO DAILY [facility] Last Admin: 01/05/18 10:00 Dose: 400 mg Metoprolol Tartrate (Lopressor) 50 mg PO BRKDIN [facility] Last Admin: 01/06/18 08:06 Dose: Not Given Montelukast Sodium (Singulair) 10 mg PO HS [facility] Last Admin: 01/05/18 23:01 Dose: 10 mg Morphine Sulfate (Morphine) 4 mg IVP Q4H PRN PRN Reason: Pain, moderate (4-7) Last Admin: 01/06/18 06:41 Dose: 4 mg Pantoprazole Sodium (Protonix Ec Tab) 40 mg PO DAILY [facility] Last Admin: 01/05/18 10:00 Dose: 40 mg - Labs Labs: 01/06/18 06:50 01/06/18 06:50 PT 11.8 SECONDS (9.4-12.5) 01/02/18 17:10 INR 1.03 (0.93-1.08) 01/02/18 17:10 APTT 25.5 Seconds (25.1-36.5) 01/02/18 17:10
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
[2018-01-06] MEDS ORDERED: Potassium Chloride 20 mEq ER Tab PO STA (13:40)
--- NOTE | 2018-01-06 15:15 | CARD ---
APPROVED REPORT EKG Measurement Heart [id number] <Conclusion> Sinus rhythm with APCs LAD
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
[2018-01-07] MEDS: Meropenem IV 1 gm in NS 50 ML IVPB SCH ×3 (06:49→21:37)
[2018-01-07] MEDS: Sodium Chloride 0.9% 1,000 ML IV SCH (06:54)
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
[2018-01-07 07:36] LABS: BASO # 0.01 K/mm3 (0.0-2.0); BASO % 0.1 % (0.0-3.0); EOS # 0.7 (0.0-0.7); EOS % 7.4 % (1.5-5.0); GRAN # 7.02 (1.4-6.5); GRAN % 72.7 % (50.0-68.0); HEMOGLOBIN 8.8 g/dL (12.0-16.0); LYMPH # 0.6 (1.2-3.4); LYMPH % 6.4 % (22.0-35.0); MEAN CELL VOLUME 86.7 fl (80.0-105.0); MEAN CORPUSCULAR HEMOGLOBIN 29.2 pg (25.0-35.0); MEAN CORPUSCULAR HGB CONC 33.7 g/dl (31.0-37.0); MONO # 1.3 (0.1-0.6); MONO % 13.4 % (1.0-6.0); RBC 3.01 10^6/uL (3.5-6.1); RED CELL DISTRIBUTION WIDTH 15.1 % (11.5-14.5); WHITE BLOOD COUNT 9.7 10^3/ul (4.5-11.0)
[2018-01-07 07:45] LABS: BLOOD UREA NITROGEN 18 mg/dL (7-21); CALCIUM 8.7 mg/dL (8.4-10.5); GFR AFRICAN-AMERICAN > 60; GFR NON-AFRICAN AMERICAN 50
[2018-01-07] MEDS: Levalbuterol 1.25 MG/3 ML Inhal Soln UD IH SCH ×3 (08:41→21:12)
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
--- NOTE | 2018-01-07 09:17 | PN ---
DATE: 01/06/2018 SUBJECTIVE: The patient is status post internal fixations, left hip and femur. The patient is doing better, less pain, no distress, no chest pain. Planning to go for MRI of her knee. PHYSICAL EXAMINATION: VITAL SIGNS: Temperature is 97.1, heart rate 91, blood pressure 114/68, respirations 19. HEAD AND NECK: Normal. No JVD. No thyromegaly. CHEST: Clear bilaterally. CARDIAC: First sound and second sound normal, regular. ABDOMEN: Soft, nontender. EXTREMITIES: No edema. Left hip and femur covered with two separate gauzes postoperatively. SCD is on. NEUROLOGIC: Normal. LABORATORY DATA: Her laboratory studies is as follow: White count 11.3, hemoglobin 9, hematocrit 26.5, platelets 184. Chemistry shows sodium 138, potassium 3.2, chloride 106, bicarb 23, BUN 20, creatinine 1.2, blood sugar 113. Liver function test is normal. Procalcitonin 0.67, which is elevated. Troponin was negative. IMPRESSION: 1. Leukocytosis, etiology could be postoperatively. We will concern about any postoperative infection. Get Dr. Valenzuela, Infectious Disease consult. Repeat CBC in the morning. 2. Left knee fracture, will need MRI. No contraindications for MRI of the left knee. Spoke with Dr. Beebe. The patient has biological valve. 3. History of paroxysmal atrial fibrillation and premature atrial contractions. Since came in, she is in sinus rhythm with premature atrial contractions. No atrial fibrillation. Continue current therapy. Continue Lovenox 40 subcu daily for deep venous thrombosis prophylaxis. 4. History of peptic ulcer disease, anemia. No anticoagulation. No Coumadin, no aspirin. Seems doing well. Postoperative anemia, transfused and doing better. 5. Status post biological valve replacement of mitral valve, seems doing well. PLAN: Continue current therapy. Continue current medications include Cardizem 120, Claritin 10, vitamin D, iron pills, Lasix 20 by mouth daily, Lipitor 10 at bedtime, Lopressor 50 b.i.d., Lovenox 40 subcu daily, mag oxide b.i.d., Merrem every 8 hours 1 g and Zyvox 1 g every 12, Singulair 10, IV fluids 50 mL/hour, Tylenol p.r.n., Xanax b.i.d. p.r.n. and Xopenex four times a day. Continue current therapy. Follow up clinically. The patient will need another surgery for her knee and rehabilitation at least for 4 weeks. Baltazar Guerra MD
--- NOTE | 2018-01-07 09:30 | CP.PCM.PN ---
Subjective - Date & Time of Evaluation Date of Evaluation: 01/07/18 Time of Evaluation: 09:27 - Subjective Subjective: Patient seen and examined at bedside.Sitting up in bed with knee immobilizer on. MRI has not been completed yet. Spoke with Dr. Beebe and confirmed patient has a bioprosthetic Mitral valve, ok to proceed with MRI. Afebrile WBC 9.7 Hgb 8.8 L hip: dressings removed. Incisions cleaned with NSS and new dry light dressings applied. +AROM foot and ankle. Calf and thigh are soft and nontender. NVI distally MRI today Cont NWB LLE Cont DVT prophylaxis Will follow up with MRI results Objective - Vital Signs/Intake and Output Vital Signs (last 24 hours): Temp Pulse Resp BP Pulse Ox 97.5 F L 95 H 20 120/76 100 01/07/18 06:00 01/07/18 08:29 01/07/18 06:00 01/07/18 08:29 01/07/18 06:00 Intake and Output: 01/07/18 01/07/18 06:59 18:59 Intake Total 1960 Balance 1960 - Medications Medications: Current Medications Acetaminophen (Tylenol 325mg Tab) 650 mg PO Q4H PRN PRN Reason: Pain, Mild (1-3) Alprazolam (Xanax) 0.25 mg PO BID PRN; Protocol PRN Reason: Anxiety Stop: 01/10/18 10:01 Last Admin: 01/03/18 09:51 Dose: 0.25 mg Atorvastatin Calcium (Lipitor) 10 mg PO DIN [facility] Last Admin: 01/06/18 17:24 Dose: 10 mg Diltiazem HCl (Cardizem Cd) 120 mg PO DAILY [facility] Last Admin: 01/06/18 09:23 Dose: 120 mg Enoxaparin Sodium (Lovenox) 40 mg SC DAILY [facility] PRN Reason: Protocol Last Admin: 01/06/18 09:22 Dose: 40 mg Ergocalciferol (Drisdol 50,000 Intl Units Cap) 1 cap PO Q7D [facility] Last Admin: 01/03/18 11:33 Dose: 1 cap Famotidine (Pepcid) 40 mg PO HS [facility] Last Admin: 01/06/18 22:23 Dose: 40 mg Ferrous Sulfate (Feosol) 324 mg PO BID [facility] Last Admin: 01/06/18 17:24 Dose: 324 mg Furosemide (Lasix) 20 mg PO DAILY [facility] Last Admin: 01/06/18 09:22 Dose: 20 mg Sodium Chloride (Sodium Chloride 0.9%) 1,000 mls @ 50 mls/hr IV .Q20H [facility] Last Admin: 01/07/18 06:54 Dose: 50 mls/hr Meropenem (Merrem Iv 1 Gm Premix) 50 mls @ 100 mls/hr IVPB Q8 [facility] PRN Reason: Protocol Stop: 01/14/18 22:16 Last Admin: 01/07/18 06:49 Dose: 100 mls/hr Linezolid (Zyvox 600mg/300ml D5w) 600 mg in 300 mls @ 200 mls/hr IVPB Q12 [facility] PRN Reason: Protocol Stop: 01/14/18 22:08 Last Admin: 01/06/18 22:23 Dose: 200 mls/hr Levalbuterol HCl (Xopenex) 1.25 mg IH TIDRESP [facility] Last Admin: 01/07/18 08:41 Dose: Not Given Loratadine (Claritin) 10 mg PO DAILY [facility] Last Admin: 01/06/18 09:22 Dose: 10 mg Magnesium Oxide (Mag-Ox) 400 mg PO DAILY [facility] Last Admin: 01/06/18 09:22 Dose: 400 mg Metoprolol Tartrate (Lopressor) 50 mg PO BRKDIN [facility] Last Admin: 01/07/18 08:29 Dose: 50 mg Montelukast Sodium (Singulair) 10 mg PO HS [facility] Last Admin: 01/06/18 22:24 Dose: 10 mg Pantoprazole Sodium (Protonix Ec Tab) 40 mg PO DAILY [facility] Last Admin: 01/06/18 09:23 Dose: 40 mg - Labs Labs: 01/07/18 07:10 01/07/18 07:10 PT 11.8 SECONDS (9.4-12.5) 01/02/18 17:10 INR 1.03 (0.93-1.08) 01/02/18 17:10 APTT 25.5 Seconds (25.1-36.5) 01/02/18 17:10
[2018-01-07] MEDS ORDERED: Potassium Chloride 20 mEq ER Tab PO ONE (10:07)
[2018-01-07] MEDS: Pantoprazole 40 mg EC Tab PO SCH (10:47)
[2018-01-07] MEDS: diltiaZEM 120 mg/24 Hours CD Cap PO SCH (10:47)
[2018-01-07] MEDS: Linezolid 600 mg in D5W 300 ml 600 MG/300 ML BAG IVPB SCH ×2 (10:47→21:41)
[2018-01-07] MEDS: Magnesium Oxide 400 mg Tab UD PO SCH (10:47)
[2018-01-07] MEDS: Enoxaparin 40 mg Syringe SC SCH (10:48)
[2018-01-07] MEDS: Morphine 4 mg/ml ISec IVP PRN ×2 (15:40→21:46)
--- NOTE | 2018-01-07 15:49 | PN ---
DATE: 01/07/2018 REASON FOR CONSULTATION AND FOLLOWUP: Cardiac evaluation, admitted with chest pain, history of mitral valve replacement, nonobstructive coronary artery disease, clearance for MRI of the hip for hip pain. SUBJECTIVE: The patient denies any chest pain, shortness of breath, or any palpitations. PHYSICAL EXAMINATION: GENERAL: Not in apparent distress. VITAL SIGNS: Temperature afebrile, heart rate 95, blood pressure 120/76. HEENT: PERRLA. Extraocular muscles are intact. NECK: Supple. No carotid bruits. No thyromegaly. CHEST: Clear to auscultation. HEART: S1 and S2, regular. ABDOMEN: Soft. EXTREMITIES: Clubbing and cyanosis negative. LABORATORY DATA: Blood workup as follows: WBC 9.7, hemoglobin 8.8, hematocrit 26.1, platelet count 192. Chemistry showed sodium , potassium 3.8, chloride 107, carbon dioxide 21, anion gap of 12, BUN 18, creatinine 1.1. IMPRESSION: Status post mitral valve replacement, bioprosthetic; history of paroxysmal atrial fibrillation; history of multiple gastrointestinal bleeds; off anticoagulation because of gastrointestinal bleed. No further episode of arrhythmia noted. EKG is normal sinus as of yesterday also. History of open heart surgery, history of mitral valve replacement by bioprosthetic mechanical valve in 10/2017. History of cardiac catheterization twice, nonobstructive coronary artery disease. Mostly seen just preop before the cardiac catheterization with atypical chest pain. Most recent echo on 11/27/2017 showed ejection fraction of 77%, normal bioprosthetic mitral valve. RECOMMENDATIONS: Continue Cardizem CD 120 mg daily. Continue ferrous sulfate. Continue to supplement potassium. Continue gentle diet. Continue atorvastatin. Continue metoprolol. Continue DVT prophylaxis. Discontinue telemetry. The patient is cleared to go for MRI because of bioprosthetic valve, not mechanical valve in the mitral valve position, it is bioprosthetic. We will follow with you. Supplement electrolytes as needed and we will discontinue telemetry. We will supplement potassium 20 mEq today. No further episode of arrhythmia noted. No anticoagulation at this time because of recurrent GI bleed. Thank you, Dr. Guerra, for providing us the opportunity in taking care of the patient, Dariana Mcgregor. Brittany Beebe MD [facility] # [id number]
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
[2018-01-08] MEDS: Sodium Chloride 0.9% 1,000 ML IV SCH ×2 (02:03→21:44)
[2018-01-08 02:38] LABS: URINE APPEARANCE CLEAR (CLEAR); URINE BILIRUBIN NEGATIVE (NEGATIVE); URINE BLOOD NEGATIVE (NEGATIVE); URINE COLOR YELLOW (YELLOW); URINE GLUCOSE (UA) NEGATIVE (NEGATIVE); URINE LEUKOCYTE ESTERASE NEGATIVE Leu/uL (NEGATIVE); URINE PROTEIN NEGATIVE mg/dL (<30 mg/dL); URINE UROBILINOGEN 0.2 E.U./dL (<1 E.U./dL)
[2018-01-08] MEDS: Meropenem IV 1 gm in NS 50 ML IVPB SCH (05:09)
[2018-01-08] MEDS: Morphine 4 mg/ml ISec IVP PRN ×2 (06:17→20:10)
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
[2018-01-08] MEDS: Levalbuterol 1.25 MG/3 ML Inhal Soln UD IH SCH ×3 (08:08→21:18)
[2018-01-08] MEDS: Enoxaparin 40 mg Syringe SC SCH (09:34)
[2018-01-08] MEDS: diltiaZEM 120 mg/24 Hours CD Cap PO SCH (09:34)
[2018-01-08] MEDS: Pantoprazole 40 mg EC Tab PO SCH (09:34)
[2018-01-08] MEDS: Magnesium Oxide 400 mg Tab UD PO SCH (09:34)
[2018-01-08] MEDS: Linezolid 600 mg in D5W 300 ml 600 MG/300 ML BAG IVPB SCH (09:35)
[2018-01-08 10:29] LABS: BASO # 0.01 K/mm3 (0.0-2.0); BASO % 0.1 % (0.0-3.0); EOS # 0.7 (0.0-0.7); EOS % 8.1 % (1.5-5.0); GRAN # 6.33 (1.4-6.5); GRAN % 69.2 % (50.0-68.0); HEMOGLOBIN 9.2 g/dL (12.0-16.0); LYMPH # 1.1 (1.2-3.4); LYMPH % 12.2 % (22.0-35.0); MEAN CELL VOLUME 87.1 fl (80.0-105.0); MEAN CORPUSCULAR HGB CONC 33.3 g/dl (31.0-37.0); MEAN PLATELET VOLUME 8.8 fl (7.0-11.0); MONO % 10.4 % (1.0-6.0); RBC 3.17 10^6/uL (3.5-6.1); RED CELL DISTRIBUTION WIDTH 14.6 % (11.5-14.5); WHITE BLOOD COUNT 9.2 10^3/ul (4.5-11.0)
[2018-01-08] MEDS: Cefpodoxime (Vantin) 200 mg Tab PO SCH ×2 (10:48→21:43)
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
--- NOTE | 2018-01-08 13:10 | PN ---
DATE: 01/08/2018 REASON FOR CONSULTATION AND FOLLOWUP: Cardiac evaluation admitted with chest pain, history of mitral valve replacement, nonobstructive coronary artery disease, status post cardiac catheterization tomorrow, clearance for MRI for the hip. SUBJECTIVE: The patient denies any chest pain, shortness of breath, or any palpitations. OBJECTIVE: GENERAL: Not in apparent distress, lying flat in the bed. VITAL SIGNS: Temperature afebrile, heart rate 91, blood pressure 127/57. HEENT: PERRLA. Extraocular muscles intact. NECK: Supple. No carotid bruit or thyromegaly. CHEST: Clear to auscultation. HEART: S1, S2 regular. ABDOMEN: Soft. EXTREMITIES: Clubbing and cyanosis negative. LABORATORY DATA: Blood workup as follows: WBC 9.7, hemoglobin 8.8, hematocrit of 26.1, platelet count of 192. Chemistry shows sodium 137, potassium 3.8, chloride 106, carbon dioxide 21, anion gap of 12, BUN 18, creatinine 1.1. Glucose 107, phosphorus 3.8, magnesium 1.8. IMPRESSION: The patient is a 62-year-old female with past medical history significant for severe mitral valve regurgitation and mitral valve prolapse, status post mitral valve repair in 10/1999, and status post mitral valve replacement, bioprosthetic in October 2017 at [facility] and status post cardiac catheterization twice because of complaint of recurrent chest pain one just before the mitral valve replacement; mild coronary artery disease, nonobstructive; history of paroxysmal atrial fibrillation. The patient with multiple times on anticoagulation, but massive gastrointestinal bleed multiple times, off anticoagulation, now is in normal sinus. The patient is complaining of hip pain, a scheduled MRI could not be done because of concern of mitral valve prosthesis. RECOMMENDATIONS: The patient is cleared from the Cardiology point of view to go for MRI, no contraindication. It is not a mechanical process, it is bioprosthetic mitral position. No evidence of arrhythmia. We will keep her off anticoagulation. Continue Cardizem 120 mg and beta-jasmyn, gentle diuretics. Should the patient become in AFib again, which is unlikely, then we will consider radiofrequency ablation or occluder device for now. Continue current treatment. No further cardiac arrhythmia workup is planned or warranted. We will discontinue Telemetry. Okay to discharge from Cardiology point of view. We will repeat SMA7 blood in the morning. Brittany Beebe MD
[2018-01-08 18:24] VITALS: RESP 20
[2018-01-09 05:55] VITALS: O2SAT 100
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
[2018-01-09 07:42] LABS: BASO # 0.02 K/mm3 (0.0-2.0); BASO % 0.2 % (0.0-3.0); EOS # 0.6 (0.0-0.7); EOS % 6.6 % (1.5-5.0); GRAN # 6.39 (1.4-6.5); HEMOGLOBIN 8.9 g/dL (12.0-16.0); LYMPH # 1.3 (1.2-3.4); LYMPH % 13.6 % (22.0-35.0); MEAN CORPUSCULAR HGB CONC 33.7 g/dl (31.0-37.0); MEAN PLATELET VOLUME 8.7 fl (7.0-11.0); MONO # 1.1 (0.1-0.6); MONO % 11.6 % (1.0-6.0); RBC 3.07 10^6/uL (3.5-6.1); RED CELL DISTRIBUTION WIDTH 14.7 % (11.5-14.5); WHITE BLOOD COUNT 9.4 10^3/ul (4.5-11.0)
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
[2018-01-09] MEDS: Levalbuterol 1.25 MG/3 ML Inhal Soln UD IH SCH ×2 (08:04→14:15)
[2018-01-09 08:20] LABS: BLOOD UREA NITROGEN 10 mg/dL (7-21); CALCIUM 8.5 mg/dL (8.4-10.5); GFR AFRICAN-AMERICAN > 60; GFR NON-AFRICAN AMERICAN > 60
--- NOTE | 2018-01-09 08:27 | CP.PCM.PN ---
Subjective - Date & Time of Evaluation Date of Evaluation: 01/09/18 Time of Evaluation: 08:23 - Subjective Subjective: Patient seen and examined. Patient alert and awake, laying in bed with knee immobilizer on. Denies any significant pain. afebrile VSS WBC 9.4 Hgb 8.9 L hip: dressings changed. Incision sites are clean and intact. No erythema or drainage. +AROM foot and ankle. Sensation intact to light touch. Examination of the left knee, mild effusion. Joint line tenderness to palpation.Thigh and calf are soft and non-tender. NVI distally Reviewed MRI findings with patient Cont DVT prophylaxis Cont PT with WBAT now Will continue knee immobilizer Will follow up with patient next week in Dr. Vines's office Discussed above with Dr. Vines, he agrees. Objective - Vital Signs/Intake and Output Vital Signs (last 24 hours): Temp Pulse Resp BP Pulse Ox 98.2 F 89 20 139/77 100 01/09/18 05:54 01/09/18 05:54 01/09/18 05:54 01/09/18 05:54 01/09/18 05:54 Intake and Output: 01/09/18 01/09/18 06:59 18:59 Intake Total 960 Output Total 200 Balance 760 - Medications Medications: Current Medications Acetaminophen (Tylenol 325mg Tab) 650 mg PO Q4H PRN PRN Reason: Pain, Mild (1-3) Alprazolam (Xanax) 0.25 mg PO BID PRN; Protocol PRN Reason: Anxiety Stop: 01/10/18 10:01 Last Admin: 01/08/18 21:43 Dose: 0.25 mg Atorvastatin Calcium (Lipitor) 10 mg PO DIN [facility] Last Admin: 01/08/18 17:39 Dose: 10 mg Cefpodoxime Proxetil (Vantin) 200 mg PO Q12 [facility] PRN Reason: Protocol Stop: 01/11/18 10:11 Last Admin: 01/08/18 21:43 Dose: 200 mg Diltiazem HCl (Cardizem Cd) 120 mg PO DAILY [facility] Last Admin: 01/08/18 09:34 Dose: 120 mg Diphenhydramine HCl (Benadryl) 25 mg PO Q6 PRN PRN Reason: Itching / Pruritus Last Admin: 01/08/18 02:03 Dose: 25 mg Doxycycline Hyclate (Doryx) 100 mg PO Q12 [facility] PRN Reason: Protocol Stop: 01/11/18 10:11 Last Admin: 01/08/18 21:43 Dose: 100 mg Enoxaparin Sodium (Lovenox) 40 mg SC DAILY [facility] PRN Reason: Protocol Last Admin: 01/08/18 09:34 Dose: 40 mg Ergocalciferol (Drisdol 50,000 Intl Units Cap) 1 cap PO Q7D [facility] Last Admin: 01/03/18 11:33 Dose: 1 cap Famotidine (Pepcid) 40 mg PO HS [facility] Last Admin: 01/08/18 21:43 Dose: 40 mg Ferrous Sulfate (Feosol) 324 mg PO BID [facility] Last Admin: 01/08/18 17:40 Dose: 324 mg Furosemide (Lasix) 20 mg PO DAILY [facility] Last Admin: 01/08/18 09:34 Dose: 20 mg Sodium Chloride (Sodium Chloride 0.9%) 1,000 mls @ 50 mls/hr IV .Q20H [facility] Last Admin: 01/08/18 21:44 Dose: 50 mls/hr Levalbuterol HCl (Xopenex) 1.25 mg IH TIDRESP [facility] Last Admin: 01/09/18 08:04 Dose: 1.25 mg Loratadine (Claritin) 10 mg PO DAILY [facility] Last Admin: 01/08/18 09:34 Dose: 10 mg Magnesium Oxide (Mag-Ox) 400 mg PO DAILY [facility] Last Admin: 01/08/18 09:34 Dose: 400 mg Metoprolol Tartrate (Lopressor) 50 mg PO BRKDIN [facility] Last Admin: 01/08/18 17:39 Dose: 50 mg Montelukast Sodium (Singulair) 10 mg PO HS [facility] Last Admin: 01/08/18 21:43 Dose: 10 mg Morphine Sulfate (Morphine) 4 mg IVP Q4H PRN PRN Reason: Pain, moderate (4-7) Last Admin: 01/08/18 20:10 Dose: 4 mg Pantoprazole Sodium (Protonix Ec Tab) 40 mg PO DAILY [facility] Last Admin: 01/08/18 09:34 Dose: 40 mg - Labs Labs: 01/09/18 07:15 01/09/18 07:15 PT 11.8 SECONDS (9.4-12.5) 01/02/18 17:10 INR 1.03 (0.93-1.08) 01/02/18 17:10 APTT 25.5 Seconds (25.1-36.5) 01/02/18 17:10
[2018-01-09] MEDS: Pantoprazole 40 mg EC Tab PO SCH (09:10)
[2018-01-09] MEDS: Cefpodoxime (Vantin) 200 mg Tab PO SCH (09:10)
[2018-01-09] MEDS: Enoxaparin 40 mg Syringe SC SCH (09:10)
[2018-01-09] MEDS: Magnesium Oxide 400 mg Tab UD PO SCH (09:10)
[2018-01-09] MEDS: diltiaZEM 120 mg/24 Hours CD Cap PO SCH (09:10)
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
[2018-01-09] MEDS ORDERED: Magnesium 2 gm/50 ml NS 2 GM/50 ML BAG IVPB ONE (12:52)
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
[2018-01-09] MEDS ORDERED: Potassium Chloride 20 mEq ER Tab PO ONE ×2 (15:08)
[2018-01-09] MEDS: Morphine 4 mg/ml ISec IVP PRN (15:37)
[2018-01-09 17:07] VITALS: BP 136/79
[2018-01-09 17:40] VITALS: PULSE 66; TEMP 99
--- NOTE | 2018-01-09 17:56 | PN ---
DATE: 01/09/2018 REASON FOR CONSULTATION AND FOLLOWUP: Cardiac evaluation, admitted with chest pain, history of mitral valve replacement, nonobstructive coronary artery disease, status post cardiac catheterization twice, clearance for MRI for the hip. SUBJECTIVE: The patient denies any chest pain, shortness of breath, or any palpitations. OBJECTIVE: GENERAL: Not in apparent distress, lying flat in the bed. VITAL SIGNS: Temperature afebrile, heart rate 89, and blood pressure 139/72. HEENT: PERRLA. Extraocular muscles intact. NECK: Supple. No carotid bruit or thyromegaly. CHEST: Clear to auscultation. HEART: S1 and S2, regular. ABDOMEN: Soft. EXTREMITIES: Clubbing and cyanosis negative. LABORATORY DATA: Blood workup as follows: WBC 9.4, hemoglobin 8.9, hematocrit of 26.4, and platelet count of 267. Chemistry shows sodium 130, potassium 3.1, chloride 104, carbon dioxide 25, anion gap of 11. BUN 10, creatinine 0.8. Magnesium 1.4. IMPRESSION: This is a 62-year-old female with past medical history significant for mitral valve prolapse, severe mitral valve regurgitation, status post mitral valve replacement bioprosthetic, multiple admissions with chest pain post coronary artery bypass grafting, nonischemic cardiomyopathy. Pre coronary artery bypass grafting status post cardiac catheterization twice, one just before, because patient is complaining of chest pain while at the [facility] for evaluation for valve replacement. Prior to that, a year and half ago, the patient had catheterization done, had mild nonobstructive coronary artery disease. The chest pain is nonischemic. History of paroxysmal atrial fibrillation, was on anticoagulation; history of multiple gastrointestinal bleed, off anticoagulation; complaining of hip pain, being evaluated by MRI. RECOMMENDATIONS: 1. The patient is okay to go for MRI. No absolute contraindication. The patient has mitral valve bioprosthetic more than 3 months ago. 2. Nonischemic chest pain. We will discontinue telemetry. Aggressive medical treatment. We will put some hematinic multivitamin for anemia. Continue Cardizem CD 120 mg daily, continue metoprolol 50 twice a day. We will discontinue telemetry. Cardiology point of view, the patient is okay to be discharged when okay from medical point of view. No further cardiac invasive or noninvasive workup is warranted at this time or planned. We will repeat the blood workup in the morning and aggressively supplement potassium and magnesium. Brittany Beebe MD
== END 2018-01-09 19:52 | DRG 480 ==
LOC: ED 14:14 → ERH 18:25 → 2RSO 21:23
PROVIDERS: ADMIT Internal Medicine; ATTEND Internal Medicine
PROC: 30233N1 Transfusion of Nonautologous Red Blood Cells into Peripheral Vein, Percutaneous Approach (ICD-10-PCS; 2018-01-03)
PROC: 0QS706Z Reposition Left Upper Femur with Intramedullary Internal Fixation Device, Open Approach (ICD-10-PCS; principal; 2018-01-03 12:30)
PROC: 3E03328 Introduction of Oxazolidinones into Peripheral Vein, Percutaneous Approach (ICD-10-PCS; 2018-01-05)
DX: S72.22XA Displaced subtrochanteric fracture of left femur, initial encounter for closed fracture (principal); A41.9 Sepsis, unspecified organism; J18.9 Pneumonia, unspecified organism; D62 Acute posthemorrhagic anemia; I42.9 Cardiomyopathy, unspecified; J44.0 Chronic obstructive pulmonary disease with (acute) lower respiratory infection; K22.10 Ulcer of esophagus without bleeding; I25.10 Atherosclerotic heart disease of native coronary artery without angina pectoris; I48.0 Paroxysmal atrial fibrillation; E78.00 Pure hypercholesterolemia, unspecified; K25.7 Chronic gastric ulcer without hemorrhage or perforation; M10.9 Gout, unspecified; K59.00 Constipation, unspecified; F41.9 Anxiety disorder, unspecified; I11.0 Hypertensive heart disease with heart failure; I50.9 Heart failure, unspecified; G56.00 Carpal tunnel syndrome, unspecified upper limb; E66.9 Obesity, unspecified; Z68.26 Body mass index [BMI] 26.0-26.9, adult; Y95 Nosocomial condition; V03.10XA Pedestrian on foot injured in collision with car, pick-up truck or van in traffic accident, initial encounter; Y92.410 Unspecified street and highway as the place of occurrence of the external cause; Z87.440 Personal history of urinary (tract) infections; Z95.3 Presence of xenogenic heart valve; Z95.1 Presence of aortocoronary bypass graft

== ENCOUNTER 2018-01-17 21:54 | Observation (INO) | payer MEDICARE, OTHER ==
[2018-01-17 22:01] VITALS: BMI 25.0
--- NOTE | 2018-01-17 22:21 | ED PDOC ---
Arrival/HPI - General Time Seen by Provider: 01/17/18 22:01 Historian: Patient - History of Present Illness Narrative History of Present Illness (Text): 01/17/18 22:12 62 y/o female, pmh including MVP/anemia/pud/gout/copd/hld, nkda, biba c/o low potassium level to 2.8. Pt. is chronically on the potassium supplement, stated that she didn't take it at the [facility] home, stated that she has no fever or chills, no chest pain or shortness of breath, no palpitation, no numbness or tingling, no other medical or psychological complaints. Past Medical History - Provider Review Nursing Documentation Reviewed: Yes - Infectious Disease Hx of Infectious Diseases: None - Tetanus Immunization Tetanus Immunization: Unknown - Past Medical History Past Medical History: No Previous - Cardiac Hx Cardiac Disorders: Yes (CAD) - Pulmonary Hx Chronic Obstructive Pulmonary Disease (COPD): Yes - Neurological Hx Neurological Disorder: Yes Hx Dizziness: Yes Hx Migraine: Yes - HEENT Hx HEENT Disorder: No - Renal Hx Renal Disorder: No Hx Dialysis: No Hx Kidney Stones: No Hx Neurogenic Bladder: No Hx Pyelonephritis: No Hx Renal Cancer: No Hx Renal Failure: No - Endocrine/Metabolic Hx Endocrine Disorders: No - Hematological/Oncological Hx Blood Transfusions: Yes Hx Blood Transfusion Reaction: No - Integumentary Hx Dermatological Disorder: No - Musculoskeletal/Rheumatological Hx Arthritis: Yes Hx Falls: Yes - Gastrointestinal Hx Gastrointestinal Disorders: Yes (gi bleed, black stools) - Genitourinary/Gynecological Hx Urinary Tract Infection: Yes - Psychiatric Hx Anxiety: Yes Hx Substance Use: No (Denied by pt.) - Surgical History Hx Cardiac Catheterization: Yes Hx Cholecystectomy: Yes Hx Open Heart Surgery: Yes Hx Valve Replacement: Yes - Anesthesia Hx Anesthesia Reactions: No Hx Malignant Hyperthermia: No - Suicidal Assessment Feels Threatened In Home Enviroment: No Family/Social History - Physician Review Nursing Documentation Reviewed: Yes Family/Social History: Unknown Family HX Smoking Status: Never Smoked Hx Alcohol Use: Yes (Social drinker.) Amount per day: 6 Hx Substance Use: No (Denied by pt.) Hx Substance Use Treatment: No Allergies/Home Meds Allergies/Adverse Reactions: Allergies cinnamon Allergy (Intermediate, Verified 01/17/18 22:02) ANAPHYLAXIS Home Medications: Home Meds Medication Instructions Recorded Confirmed Simvastatin [Zocor] 20 mg PO HS 08/20/17 01/09/18 Budesonide/Formoterol Fumarate 1 aer IH DAILY 11/26/17 01/09/18 [Symbicort 80-4.5 Mcg Inhaler] Cholecalciferol [Vitamin D 1000 IU] 50,000 iu PO QWK 11/26/17 01/09/18 Diltiazem HCl [Cartia Xt] 120 mg PO DAILY 11/26/17 01/09/18 Ferrous Sulfate [Feosol] 325 mg PO BID 11/26/17 01/09/18 Furosemide [Lasix] 20 mg PO DAILY 11/26/17 01/09/18 Loratadine [Claritin] 10 mg PO DAILY 11/26/17 01/09/18 Review of Systems - Review of Systems Constitutional: absent: Fatigue, Fevers Eyes: absent: Vision Changes ENT: absent: Hearing Changes Respiratory: absent: SOB, Cough Cardiovascular: absent: Chest Pain Gastrointestinal: absent: Abdominal Pain, Diarrhea, Nausea, Vomiting Skin: absent: Rash, Pruritis Neurological: absent: Headache, Dizziness Psychiatric: absent: Anxiety, Depression, Suicidal Ideation Physical Exam Vital Signs Reviewed: Yes Vital Signs Temp Pulse Resp BP Pulse Ox 01/17/18 22:10 98.2 F 88 18 110/66 98 Temperature: Afebrile Blood Pressure: Normal Pulse: Regular Respiratory Rate: Normal Appearance: Positive for: Well-Appearing, Non-Toxic, Comfortable Pain Distress: None Mental Status: Positive for: Alert and Oriented X 3 - Systems Exam Head: Present: Atraumatic, Normocephalic Pupils: Present: PERRL Extroacular Muscles: Present: EOMI Conjunctiva: Present: Normal Mouth: Present: Moist Mucous Membranes Neck: Present: Normal Range of Motion Respiratory/Chest: Present: Clear to Auscultation, Good Air Exchange. No: Respiratory Distress, Accessory Muscle Use Cardiovascular: Present: Regular Rate and Rhythm, Normal S1, S2. No: Murmurs Abdomen: No: Tenderness, Distention, Peritoneal Signs Back: Present: Normal Inspection Upper Extremity: Present: Normal Inspection. No: Cyanosis, Edema Lower Extremity: Present: Normal Inspection. No: Edema Neurological: Present: GCS=15, CN II-XII Intact, Speech Normal, Motor Func Grossly Intact, Memory Normal Skin: Present: Warm, Dry, Normal Color. No: Rashes Psychiatric: Present: Alert, Oriented x 3, Normal Insight, Normal Concentration Medical Decision Making ED Course and Treatment: 01/17/18 22:24 differential: hypokalemia vs. electrolyte imbalance vs dehydration -labs/ua -ekg -observe and reassess 01/17/18 23:47 -SR @ 84 BPM with PAC, No ST elevation or depression, T wave inversion on lead III and aVF with flattened t waves generally -Chest xray show RIGHT lower lobe interstitial congestion. Sternotomy -Labs show no acute findings except mg 1.5 and potassium 2.9, Potassium chloride 20meq po with IV potassium 10meq ordered, Mg 2gm IV ordered. -I spoke to Dr. Guerra about this case/labs, request to admit the patient for [facility]. -ER attending Dr. Ibarra is busy, will put in the admission for her -I discussed all labs with the patient and she agreed to be admitted for observation - Lab Interpretations Lab Results: 01/17/18 22:56 01/17/18 22:56 Lab Results 01/17/18 22:56: WBC 11.2 H, RBC 3.23 L, Hgb 9.3 L, Hct 28.0 L, MCV 86.7, MCH 28.8, MCHC 33.2, RDW 15.5 H, Plt Count 548 H, MPV 9.6, Gran % 67.7, Lymph % ( Auto) 17.4 L, Wallace % (Auto) 9.1 H, Eos % (Auto) 5.5 H, Baso % (Auto) 0.3, Gran # 7.56 H, Lymph # (Auto) 2.0, Wallace # (Auto) 1.0 H, Eos # (Auto) 0.6, Baso # ( Auto) 0.03 01/17/18 22:56: Sodium 140, Potassium 2.9 L*, Chloride 102, Carbon Dioxide 28, Anion Gap 13, BUN 11, Creatinine 0.8, Est GFR ( Amer) > 60, Est GFR (Non- Af Amer) > 60, Random Glucose 117 H, Calcium 9.0, Magnesium 1.5 L, Total Bilirubin 0.5, AST 22, ALT 26, Alkaline Phosphatase 161 H D, Total Protein 7.0, Albumin 3.2, Globulin 3.7, Albumin/Globulin Ratio 0.9 L - RAD Interpretation Radiology Orders: 01/17/18 22:27 CHEST PORTABLE [RAD] Stat FINDINGS: Lungs: RIGHT lower lobe interstitial congestion is seen. No consolidation. Pleural space: Unremarkable. No pneumothorax. Heart: Unremarkable. No cardiomegaly. Mediastinum: Unremarkable. Bones/joints: Sternotomy changes are seen. IMPRESSION: 1. RIGHT lower lobe interstitial congestion. 2. Sternotomy Thank you for allowing us to participate in the care of your patient. Dictated and Authenticated by: Alexander Maldonado MD 01/17/2018 11:25 PM Eastern Time ([place] & [place]) Director Drug: Radiologist - EKG Interpretation EKG Interpretation (Text): 01/17/18 22:25 SR @ 84 BPM with PAC, No ST elevation or depression, T wave inversion on lead III and aVF with flattened t waves generally Interpreted by ED Physician: Yes Type: 12 lead EKG - PA / [employer] MENDER / Resident Statement MD/DO has reviewed & agrees with the documentation as recorded. Disposition/Present on Arrival - Present on Arrival Any Indicators Present on Arrival: No History of DVT/PE: No History of Uncontrolled Diabetes: No Urinary Catheter: Yes History of Decub. Ulcer: No History Surgical Site Infection Following: None - Disposition Have Diagnosis and Disposition been Completed?: Yes Diagnosis: Abnormal EKG, Hypokalemia, Hypomagnesemia Disposition: HOSPITALIZED Disposition Time: 22:26 Patient Plan: Admission, Observation, Telemetry Referrals: Baltazar Guerra MD [Primary Care Provider] - Follow up with primary
[2018-01-17 23:16] LABS: BASO # 0.03 K/mm3 (0.0-2.0); BASO % 0.3 % (0.0-3.0); EOS # 0.6 (0.0-0.7); EOS % 5.5 % (1.5-5.0); GRAN # 7.56 (1.4-6.5); GRAN % 67.7 % (50.0-68.0); HEMOGLOBIN 9.3 g/dL (12.0-16.0); LYMPH % 17.4 % (22.0-35.0); MEAN CELL VOLUME 86.7 fl (80.0-105.0); MEAN CORPUSCULAR HEMOGLOBIN 28.8 pg (25.0-35.0); MEAN CORPUSCULAR HGB CONC 33.2 g/dl (31.0-37.0); MEAN PLATELET VOLUME 9.6 fl (7.0-11.0); MONO % 9.1 % (1.0-6.0); RBC 3.23 10^6/uL (3.5-6.1); RED CELL DISTRIBUTION WIDTH 15.5 % (11.5-14.5); WHITE BLOOD COUNT 11.2 10^3/ul (4.5-11.0)
[2018-01-17 23:26] LABS: ALB/GLOB RATIO 0.9 (1.1-1.8); ALBUMIN 3.2 g/dL (3.0-4.8); ALT/SGPT 26 U/L (7-56); AST/SGOT 22 U/L (14-36); BLOOD UREA NITROGEN 11 mg/dL (7-21); GFR AFRICAN-AMERICAN > 60; GFR NON-AFRICAN AMERICAN > 60
[2018-01-17] MEDS ORDERED: Potassium Chloride 20 mEq ER Tab PO STA ×2 (23:37→23:42)
[2018-01-18] MEDS: Magnesium 2 gm/50 ml NS 2 GM/50 ML BAG IVPB ONE ×2 (00:26→01:00)
[2018-01-18] MEDS: Potassium Chloride 40 mEq/30 ml LIQ UD PO SCH ×3 (07:49→14:54)
[2018-01-18 08:14] LABS: ALB/GLOB RATIO 0.8 (1.1-1.8); ALBUMIN 2.7 g/dL (3.0-4.8); ALT/SGPT 24 U/L (7-56); AST/SGOT 20 U/L (14-36); BLOOD UREA NITROGEN 8 mg/dL (7-21); CALCIUM 8.4 mg/dL (8.4-10.5); GFR AFRICAN-AMERICAN > 60; GFR NON-AFRICAN AMERICAN > 60
[2018-01-18 08:20] LABS: BASO # 0.04 K/mm3 (0.0-2.0); BASO % 0.5 % (0.0-3.0); EOS # 0.6 (0.0-0.7); EOS % 7.4 % (1.5-5.0); GRAN # 4.79 (1.4-6.5); GRAN % 57.8 % (50.0-68.0); HEMOGLOBIN 8.5 g/dL (12.0-16.0); LYMPH % 23.6 % (22.0-35.0); MEAN CELL VOLUME 86.5 fl (80.0-105.0); MEAN CORPUSCULAR HEMOGLOBIN 28.1 pg (25.0-35.0); MEAN CORPUSCULAR HGB CONC 32.4 g/dl (31.0-37.0); MEAN PLATELET VOLUME 9.7 fl (7.0-11.0); MONO # 0.9 (0.1-0.6); MONO % 10.7 % (1.0-6.0); RBC 3.03 10^6/uL (3.5-6.1); RED CELL DISTRIBUTION WIDTH 15.4 % (11.5-14.5); WHITE BLOOD COUNT 8.3 10^3/ul (4.5-11.0)
--- NOTE | 2018-01-18 08:34 | RAD ---
Date of service: 01/17/2018 HISTORY: medical clearance COMPARISON: 01/06/2018 FINDINGS: LUNGS: No active pulmonary disease. PLEURA: No significant pleural effusion identified, no pneumothorax apparent. CARDIOVASCULAR: Mild cardiomegaly OSSEOUS STRUCTURES: Sternal wires VISUALIZED UPPER ABDOMEN: Normal. OTHER FINDINGS: None. IMPRESSION: No active disease.
[2018-01-18] MEDS ORDERED: Ergocalciferol 50,000 Intl Units Cap PO SCH (10:00)
[2018-01-18] MEDS: diltiaZEM 120 mg/24 Hours CD Cap PO SCH (10:11)
[2018-01-18] MEDS: Magnesium Oxide 400 mg Tab UD PO SCH ×2 (10:11→17:24)
[2018-01-18] MEDS: Pantoprazole 40 mg EC Tab PO SCH (10:12)
[2018-01-18] MEDS: Ciprofloxacin 0.3% OPTH SOLN OS SCH (17:53)
[2018-01-18] MEDS: Budesonide 0.25 mg/2 ml Inhal Susp UD IH SCH (19:29)
[2018-01-18] MEDS: Arformoterol 15 mcg/2 ml Inh Sol IH SCH (19:29)
--- NOTE | 2018-01-18 21:02 | CARD ---
APPROVED REPORT Date of service: 01/17/2018 EKG Measurement Heart [id number] <Conclusion> Sinus rhythm with premature atrial complexes with aberrant conduction Nonspecific ST and T wave abnormality Abnormal ECG
[2018-01-18] MEDS ORDERED: Oxycodone/Acetaminophen 2.5/325 mg Tab PO ONE (23:37)
[2018-01-19] MEDS: Budesonide 0.25 mg/2 ml Inhal Susp UD IH SCH ×2 (07:27→19:21)
[2018-01-19] MEDS: Arformoterol 15 mcg/2 ml Inh Sol IH SCH ×2 (07:27→19:21)
[2018-01-19 08:04] LABS: BLOOD UREA NITROGEN 6 mg/dL (7-21); CALCIUM 9.1 mg/dL (8.4-10.5); GFR AFRICAN-AMERICAN > 60; GFR NON-AFRICAN AMERICAN > 60
[2018-01-19] MEDS: Magnesium Oxide 400 mg Tab UD PO SCH ×2 (10:35→17:52)
[2018-01-19] MEDS: diltiaZEM 120 mg/24 Hours CD Cap PO SCH (10:35)
[2018-01-19] MEDS: Pantoprazole 40 mg EC Tab PO SCH (10:36)
[2018-01-19] MEDS: Ciprofloxacin 0.3% OPTH SOLN OS SCH ×2 (10:36→17:55)
[2018-01-20 00:33] VITALS: RESP 20
[2018-01-20] MEDS ORDERED: Oxycodone/Acetaminophen 5/325 mg Tab PO STA ×2 (03:14→06:11)
[2018-01-20 06:56] VITALS: O2SAT 94
[2018-01-20] MEDS: Budesonide 0.25 mg/2 ml Inhal Susp UD IH SCH (07:42)
[2018-01-20] MEDS: Arformoterol 15 mcg/2 ml Inh Sol IH SCH (07:42)
--- NOTE | 2018-01-20 08:16 | HP ---
HISTORY OF PRESENT ILLNESS: A 62-year-old female came in, brought in from [facility] because of very low potassium on blood work. Patient, otherwise, has no complaints. This is a 62-year-old female who came in from [facility]. She was there for rehabilitation because of left femur fracture;, left trochanteric fracture, status post insertion of pins and plates and she seems doing okay, getting physical therapy on daily basis. She was currently taking Lasix 20 mg once a day; however, her repeat blood work shows potassium was 2.9, which was asymptomatic. She has no chest pain, no shortness of breath. She came in for replacement and observations. MEDICATIONS: She was getting over there is Zocor 20 at bedtime, Protonix 40 p.o. daily, Singulair 10 at bedtime, Lopressor 25 mg b.i.d., magnesium oxide 400 daily, Claritin 10 daily, Lasix 20 p.o. daily, iron pills 325 b.i.d., Pepcid 40 at bedtime, Cartia XL 120 p.o. daily, vitamin D 07070 p.o. daily and she is getting Symbicort. She is getting also Lovenox 40 subcu daily plus Percocet p.r.n. for pain. Patient had immunization. She had influenza and Tdap vaccinations. PAST SURGICAL HISTORY: As I mentioned, 1. She has recently on previous admission left trochanteric fracture, left femur fracture with status post open reduction and internal fixation. 2. She has history of GI bleed with peptic ulcer disease and currently due to ulcer bleeding, has admission to ICU. 3. Paroxysmal tachycardia. She is off any anticoagulation at this time. 4. Patient had history of gouty arthritis. She also has a history of cardiac arrhythmia and tachycardia. She is on Cardizem and metoprolol. 5. She also has history of mitral valve replacement, biological valve with normal coronary, nonocclusive coronary. 6. She has osteoarthritis, chronic back pain, chronic knee osteoarthritis. 7. Chronic anxiety. FAMILY HISTORY: Noncontributory. SOCIAL HISTORY: She lives by herself. She is not , no children. She does not smoke and does not drink. REVIEW OF SYSTEMS: Chronic back pain, arthritis, wheezing, coughing, anxiety, joint pain, palpitations. Otherwise, rest of the review of systems is negative. PHYSICAL EXAMINATION: VITAL SIGNS: Her temperature is 97.8, heart rate 76, blood pressure 145/86, respirations 18 and saturation 98% on room air. HEAD AND NECK: Normal. No JVD. No thyromegaly. CHEST: Clear bilaterally. CARDIAC: First sound and second sound normal. ABDOMEN: Soft, nontender. EXTREMITIES: Left hip, there is a scar from bandage from the left hip surgery and the femur surgery and there is a cast on the left knee. NEUROLOGIC: Normal. Right eye improved, however, left eye is still some red. Patient does use contact lens. LABORATORY DATA: On 01/17/2018, white count 11.2, hemoglobin 9.3, hematocrit 28, platelets 548. Chemistry: Sodium 140, potassium 2.9, chloride 102, bicarbonate 28, BUN 11, creatinine 0.8. Blood glucose 117. Calcium is 9, magnesium 1.5. Liver function test is normal. Alkaline phosphatase 161. DIAGNOSTIC DATA: Patient also had a chest x-ray done, which was read as no active lung disease. Electrocardiogram shows sinus rhythm with premature atrial complexes with aberrant conduction, nonspecific ST-T changes. IMPRESSION AND PLAN: This is a 62-year-old female who came in with abnormal laboratory study for severe hypokalemia, also noted her magnesium is low. We will admit the patient. She got magnesium intravenously and potassium intravenously. We will put her in Telemetry unit. Continue intravenous infusion of potassium and magnesium and will monitor her case closely. Continue current therapy. Follow up clinically. Resume all other medications. Resume pain medicines, cardiac medications and continue all previous medications. Current medications she will be on are Brovana b.i.d., Cardizem CD 120, Claritin, vitamin D, iron pills, heparin subcu, Lipitor 10 mg at bedtime, Lopressor 25 daily, magnesium oxide p.o. 400 b.i.d., Pepcid 40 at bedtime, Protonix 40 once a day, Pulmicort 0.25 b.i.d. and Singulair 10 mg and continue current therapy. We will observe and we will see how the patient do. Repeat labs in the morning. Baltazar Guerra MD
[2018-01-20 09:37] LABS: BLOOD UREA NITROGEN 3 mg/dL (7-21); CALCIUM 9.2 mg/dL (8.4-10.5); GFR AFRICAN-AMERICAN > 60; GFR NON-AFRICAN AMERICAN > 60
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
[2018-01-20] MEDS: Ciprofloxacin 0.3% OPTH SOLN OS SCH ×2 (11:48→17:08)
[2018-01-20] MEDS: Pantoprazole 40 mg EC Tab PO SCH (11:49)
[2018-01-20] MEDS: Magnesium Oxide 400 mg Tab UD PO SCH (11:50)
[2018-01-20] MEDS: diltiaZEM 120 mg/24 Hours CD Cap PO SCH (11:50)
[2018-01-20 12:49] VITALS: TEMP 98.1
[2018-01-20] MEDS ORDERED: Potassium Chloride 20 mEq ER Tab PO ONE (16:29)
[2018-01-20 17:09] VITALS: BP 138/87; PULSE 87
[2018-01-20] MEDS ORDERED: Magnesium Oxide 400 mg Tab UD PO SCH (18:00)
--- NOTE | 2018-01-20 18:02 | CARD ---
APPROVED REPORT Date of service: 01/18/2018 EKG Measurement Heart [id number] <Conclusion> Normal sinus rhythm Minimal voltage criteria for LVH, may be normal variant Consider inferior ischemia Borderline ECG
--- NOTE | 2018-01-21 01:52 | CON ---
DATE: 01/20/2018 SERVICE: Cardiology. PHYSICIAN: Brittany Beebe MD. REASON FOR THE CONSULTATION: Electrolyte imbalance, abnormal EKG, status post open heart surgery. BRIEF CLINICAL HISTORY: This is a 62-year-old female with past medical history significant for severe mitral regurgitation secondary to mitral valve prolapse, status post MVR, multiple admissions with chest pain since then. Admitted yesterday, not feeling good with abnormal electrolytes imbalance. PAST MEDICAL HISTORY: Past history significant for pneumonia, COPD, CHF, severe mitral regurgitation secondary to mitral valve prolapse, status post ____ history of multiple GI bleed. Off anticoagulation. Status post cardiac catheterization twice and found to have nonobstructive coronary artery disease, one just before surgery because the patient has chest pain. Status post MV bioprosthetic replacement in 04/2017. Hypertension, noncompliance with the medication. PAST SURGICAL HISTORY: Significant for cholecystectomy, carpal tunnel syndrome, bunionectomy, removal of bunion from the toe and foot. Most recently, the patient's MVR, bioprosthetic MV replacement in [facility] in 04/2017. History of cardiac catheterization twice, one just before the surgery because the patient is complaining of chest pain, so the patient just before open heart surgery had another cardiac catheterization. Nonobstructive coronary artery disease. That catheterization was done on 04/23/2017 at [facility]. History of paroxysmal atrial fibrillation. Multiple admissions with paroxysmal atrial fibrillation and GI bleed also. Now, the patient is off Coumadin because of recurrent GI bleed. SOCIAL HISTORY: Denies any history of alcohol abuse. CURRENT MEDICATIONS: The patient is taking at home Zocor, Protonix, metoprolol 25 twice a day, Lasix 20 mg daily, Cardizem 120 mg daily. REVIEW OF SYSTEMS: As per HPI. PHYSICAL EXAMINATION: VITAL SIGNS: Height of the patient 5 feet, 7 inches. Weight of the patient 165. Body mass index 25.8 kg/m2. Temperature afebrile, heart rate 90, blood pressure 132/71. HEENT: PERRLA, intact. NECK: Supple. No carotid bruit. No thyromegaly. CHEST: Clear to auscultation. HEART: S1 and S2 regular. ABDOMEN: Soft. EXTREMITIES: Clubbing and cyanosis negative. LABORATORY DATA: EKG shows normal sinus. No acute ST-T changes noted. Heart rate 62. Occasional APCs noted. Blood workup; WBC 8.3, hemoglobin 8.5, hematocrit 26.2, platelet count 525. Chemistry shows sodium 141, potassium 3.7, chloride 103, carbon dioxide 29, anion gap of 12, BUN 3, creatinine 0.7, magnesium 1.5. IMPRESSION: Multiple electrolyte imbalances. The patient admitted with potassium 2.9 and magnesium low. A 62-year-old female, obese with past medical history significant for severe mitral regurgitation, status post mitral valve replacement, bioprosthetic; history paroxysmal atrial fibrillation with GI bleed; history of multiple electrolytes abnormality. Admitted with weakness, and multiple electrolytes abnormalities including severe hypokalemia, hypomagnesemia. Denies any chest pain. History of paroxysmal atrial fibrillation, off anticoagulation because of GI bleed, history of anemia. RECOMMENDATIONS: guaiac positive. Supplement aggressively electrolytes. Resume back Cardizem. Resume Lopressor. Further recommendations will be made according to hospital course. We will follow with you. Thank you, Dr. Guerra for providing us the opportunity in taking care of the patient, Dariana Mcgregor. Brittany Beebe MD
--- NOTE | 2018-01-21 14:09 | DS ---
HISTORY OF PRESENT ILLNESS: The patient came in because of electrolyte abnormalities; severe hypokalemia, she was given potassium IV times three 20 mEq, p.o. potassium, takes a couple of days, her potassium gets better. The patient also has hypomagnesemia, was replaced and she also has anemia, hemoglobin 9 to 8.5, seen by Dr. Jimenez, for any transfusions, no acute blood loss, hemodynamically stable. Her left eye was red, was given ciprofloxacin, advised not to use the contact lens that she has and because of reinfection and overmonitor her eye. If the patient is not better, will get Ophthalmology consult to see her. The patient was feeling better, improved. PHYSICAL EXAMINATION: VITAL SIGNS: Her temperature 98.1, heart rate 87, blood pressure 128/87 and respirations 20. HEAD AND NECK: Normal. No JVD. No thyromegaly. CHEST: Clear bilaterally. CARDIAC: First sound and second sound normal. ABDOMEN: Soft, nontender. EXTREMITIES: No edema. NEUROLOGIC: Normal. The patient has been doing well and will be monitored. DISCHARGE DIAGNOSES: 1. Acute electrolyte abnormalities. 2. Hypokalemia. 3. Hypomagnesemia. 4. Anemia. 5. Status post left hip and left femur open reduction and internal fixation. 6. Generalized weakness and deconditioning. 7. History of mitral valve replacement. 8. Nonobstructive coronary artery disease. 9. History of gouty arthritis. PLAN: Send the patient to a different [facility] [place]. Continue current medications, nebulizer treatment, DVT and GI prophylaxis. Continue iron, Colace and all other medications. Baltazar Guerra MD
== END 2018-01-20 18:40 ==
LOC: ED 21:54 → ERH 23:39 → 2RNO 01-18 01:39
PROVIDERS: ADMIT Internal Medicine; ATTEND Internal Medicine
DX: E87.6 Hypokalemia (principal); E83.42 Hypomagnesemia; J44.9 Chronic obstructive pulmonary disease, unspecified; E78.5 Hyperlipidemia, unspecified; D64.9 Anemia, unspecified; I47.9 Paroxysmal tachycardia, unspecified; M10.9 Gout, unspecified; F41.9 Anxiety disorder, unspecified; I25.10 Atherosclerotic heart disease of native coronary artery without angina pectoris; R53.1 Weakness; I48.0 Paroxysmal atrial fibrillation; I50.9 Heart failure, unspecified; I11.0 Hypertensive heart disease with heart failure; E66.9 Obesity, unspecified; Z91.14 Patient's other noncompliance with medication regimen; Z90.49 Acquired absence of other specified parts of digestive tract; Z95.3 Presence of xenogenic heart valve
CPT/HCPCS: 36415; 71045; 80048; 80053; 83735; 84100; 85025; 93005; 94640; 97163; 97530; 99281; G0378; G8978; G8979; J1644; J3475; J3480

== ENCOUNTER 2018-03-26 14:10 | Inpatient (IN) | payer MEDICARE, OTHER ==
[2018-03-26 14:38] VITALS: BMI 23.5
--- NOTE | 2018-03-26 15:12 | ED PDOC ---
Arrival/HPI <David Long - Last Filed: 03/26/18 17:56> - General Historian: Patient - History of Present Illness Time/Duration: < week (2 days) Symptom Onset: Gradual Symptom Course: Worsening Quality: Stabbing <Wilver Hankins - Last Filed: 03/26/18 19:12> - General Chief Complaint: Chest Pain Time Seen by Provider: 03/26/18 14:18 - History of Present Illness Narrative History of Present Illness (Text): 03/26/18 15:15 Patient is a 63 year old female with a past medical history of Atrial Fibrillation (not on anticoag - h/o GI bleed), Mitral Valve Repair, gastric ulcer, CAD, anemia and COPD presenting to the emergency room with complaint of chest pain and shortness of breath. Patient was leaving her emergency care tech's office, Dr. Beebe, when she realized that she forgot to tell him that she has been feeling short breath and experiencing left sided chest pain for the last two days. The chest pain is sharp and located under her left breast. It does not radiate. She has felt similar pains in the past, most recently 2 months ago. She has a productive cough with white sputum since saturday. She has been experiencing subjective fevers. Denies nausea, vomiting, diarrhea, constipation , bloody stool, melena, abdominal pain, headaches, vision changes, numbness or tingling. PMD: Dr. Quintero Quarryman: Dr. Beebe (Wilver Hankins) Past Medical History - Provider Review Nursing Documentation Reviewed: Yes - Infectious Disease Hx of Infectious Diseases: None - Tetanus Immunization Tetanus Immunization: Unknown - Past Medical History Past Medical History: No Previous - Cardiac Hx Cardiac Disorders: Yes (CAD) - Pulmonary Hx Respiratory Disorders: Yes Hx Chronic Obstructive Pulmonary Disease (COPD): Yes - Neurological Hx Neurological Disorder: Yes Hx Dizziness: Yes Hx Migraine: Yes - HEENT Hx HEENT Disorder: No - Renal Hx Renal Disorder: No - Endocrine/Metabolic Hx Endocrine Disorders: No - Hematological/Oncological Hx Blood Disorders: Yes Hx Blood Transfusions: Yes - Integumentary Hx Dermatological Disorder: No - Musculoskeletal/Rheumatological Hx Musculoskeletal Disorders: Yes Hx Arthritis: Yes Hx Falls: Yes - Gastrointestinal Hx Gastrointestinal Disorders: Yes (gi bleed) - Genitourinary/Gynecological Hx Genitourinary Disorders: Yes Hx Urinary Tract Infection: Yes - Psychiatric Hx Psychophysiologic Disorder: Yes Hx Anxiety: Yes Hx Substance Use: No (Denied by pt.) - Surgical History Hx Cardiac Catheterization: Yes Hx Cholecystectomy: Yes Hx Open Heart Surgery: Yes Hx Valve Replacement: Yes - Anesthesia Hx Anesthesia: Yes - Suicidal Assessment Feels Threatened In Home Enviroment: No <Wilver Hankins - Last Filed: 03/26/18 19:12> Family/Social History - Physician Review Nursing Documentation Reviewed: Yes Family/Social History: Unknown Family HX Smoking Status: Never Smoked Hx Alcohol Use: Yes (Social drinker.) Amount per day: 6 Hx Substance Use: No (Denied by pt.) Hx Substance Use Treatment: No <Wilver Hankins - Last Filed: 03/26/18 19:12> Allergies/Home Meds <David Long - Last Filed: 03/26/18 17:56> <Wilver Hankins - Last Filed: 03/26/18 19:12> Allergies/Adverse Reactions: Allergies cinnamon Allergy (Intermediate, Verified 03/26/18 14:57) ANAPHYLAXIS Home Medications: Home Meds Medication Instructions Recorded Confirmed Simvastatin [Zocor] 20 mg PO HS 08/20/17 01/18/18 Budesonide/Formoterol Fumarate 1 aer IH DAILY 11/26/17 01/18/18 [Symbicort 80-4.5 Mcg Inhaler] Cholecalciferol [Vitamin D 1000 IU] 50,000 iu PO QWK 11/26/17 01/18/18 Diltiazem HCl [Cartia Xt] 120 mg PO DAILY 11/26/17 01/18/18 Ferrous Sulfate [Feosol] 325 mg PO BID 11/26/17 01/18/18 Furosemide [Lasix] 20 mg PO DAILY 11/26/17 01/18/18 Loratadine [Claritin] 10 mg PO DAILY 11/26/17 01/18/18 Review of Systems - Physician Review All systems were reviewed & negative as marked: Yes - Review of Systems Constitutional: Normal. absent: Fatigue, Fevers Eyes: Normal. absent: Vision Changes ENT: Normal. absent: Sore Throat, Rhinorrhea Respiratory: SOB. absent: Cough, Sputum, Wheezing Cardiovascular: Chest Pain (left sided), AVELAR, Orthopnea, Other (lightheadedness) . absent: Palpitations, Edema, Calf Pain, Syncope (l) Gastrointestinal: Normal, Other (reports dark stool - but is baseline for her as she takes iron supplements). absent: Abdominal Pain, Constipation, Diarrhea , Nausea, Vomiting, Appetite Changes Musculoskeletal: Normal. absent: Back Pain, Neck Pain Skin: Normal. absent: Rash Neurological: Other (lightheadedness). absent: Headache, Dizziness Endocrine: Normal Hemo/Lymphatic: Normal. absent: Adenopathy Psychiatric: Normal. absent: Anxiety, Depression <Wilver Hankins - Last Filed: 03/26/18 19:12> Physical Exam Vital Signs Reviewed: Yes Temperature: Afebrile Blood Pressure: Normal Pulse: Regular Respiratory Rate: Normal Appearance: Positive for: Well-Appearing, Non-Toxic, Comfortable Pain Distress: None Mental Status: Positive for: Alert and Oriented X 3 - Systems Exam Head: Present: Atraumatic, Normocephalic Pupils: Present: PERRL Extroacular Muscles: Present: EOMI Conjunctiva: Present: Normal Mouth: Present: Moist Mucous Membranes Neck: Present: Normal Range of Motion Respiratory/Chest: Present: Clear to Auscultation, Good Air Exchange. No: Respiratory Distress, Accessory Muscle Use Cardiovascular: Present: Regular Rate and Rhythm, Normal S1, S2. No: Murmurs Abdomen: No: Tenderness, Distention, Peritoneal Signs Back: Present: Normal Inspection Upper Extremity: Present: Normal Inspection. No: Cyanosis, Edema Lower Extremity: Present: Normal Inspection. No: Edema Neurological: Present: GCS=15, CN II-XII Intact, Speech Normal Skin: Present: Warm, Dry, Normal Color. No: Rashes Psychiatric: Present: Alert, Oriented x 3, Normal Insight, Normal Concentration <Wilver Hankins - Last Filed: 03/26/18 19:12> Vital Signs Temp Pulse Pulse Resp BP BP Pulse Ox 03/26/18 18:17 92 H 17 136/84 100 03/26/18 17:47 90 18 118/76 100 03/26/18 15:57 90 16 108/72 100 03/26/18 15:17 90 110/61 03/26/18 14:57 99.9 F H 86 16 108/55 L 98 Medical Decision Making <David Long - Last Filed: 03/26/18 17:56> Re-evaluation Time: 17:29 Reassessment Condition: Re-examined, Improving,but remains with symptoms - Lab Interpretations I have reviewed the lab results: Yes - RAD Interpretation Manufacturing Test Engineer: ED Physician, Radiologist - EKG Interpretation Interpreted by ED Physician: Yes <Wilver Hankins - Last Filed: 03/26/18 19:12> ED Course and Treatment: 03/26/18 17:57 Patient Seen with Resident: In agreement with resident note which contains more details about the patient. Patient seen and evaluated with resident. Came up with plan and treatment together. (David Long) 03/26/18 17:15 Patient is a 63 year old female with a past medical history of Atrial Fibrillation (not on anticoag - h/o GI bleed), Mitral Valve Repair, gastric ulcer, CAD, anemia and COPD complaining of chest pain and worsening shortness of breath. Labs, CXR and EKG Patient is not actively SOB, lung exam unremarkable, saturating 95% on RA. No breathing treatments indicated at this time. Patient is refusing aspirin as she was told by her emergency care tech that she is not allowed to take it due to her history of GI bleeding. 03/26/18 17:34 Discussed results of normal labs and unchanged EKG with patient. CXR shows possible RLL infiltrate - suspected community acquired pneumonia - will treat with Rocephin and Azithromycin. Called and discussed case with patient's PMD, Dr. Guerra. He states that he is not seeing patient's in the hospital this month and requests hospitalist service to admit patient. Called and discussed case with Dr. Casas (hospitalist). Dr. Casas has accepted patient for chest pain r/o, pre-syncope and possible CAP. Will admit to hospitalist service for full admission to telemetry. (Wilver Hankins) - Lab Interpretations Lab Results: 03/26/18 15:20 03/26/18 15:20 Lab Results 03/26/18 15:20: Sodium 138, Potassium 5.4 H, Chloride 107, Carbon Dioxide 22, Anion Gap 14, BUN 23 H, Creatinine 1.6 H, Est GFR ( Amer) 39, Est GFR ( Non-Af Amer) 32, Random Glucose 109, Calcium 9.9, Magnesium 1.8, Total Bilirubin 0.6, AST 25, ALT 13, Alkaline Phosphatase 210 H D, Troponin I < 0.01, NT-Pro-B Natriuret Pep 802 H, Total Protein 7.5, Albumin 4.0, Globulin 3.5, Albumin/Globulin Ratio 1.1 03/26/18 15:20: PT 11.9, INR 1.04, APTT 29.4 03/26/18 15:20: WBC 9.0, RBC 3.66, Hgb 10.2 L, Hct 31.5 L, MCV 86.1, MCH 27.9, MCHC 32.4, RDW 17.6 H, Plt Count 216, MPV 9.8, Gran % 56.0, Lymph % (Auto) 25.7 , [place] % (Auto) 11.0 H, Eos % (Auto) 7.0 H, Baso % (Auto) 0.3, Gran # 5.03, Lymph # (Auto) 2.3, [place] # (Auto) 1.0 H, Eos # (Auto) 0.6, Baso # (Auto) 0.03 - RAD Interpretation Narrative RAD Interpretations (Text): 03/26/18 17:38 CXR - RLL infiltrate - awaiting official radiologist read. 03/26/18 19:11 CXR - Hyperinflation of the lungs. Possible small infiltrate at the right lower lung. Correlate clinically for pneumonia. (Wilver Hankins) Radiology Orders: 03/26/18 14:38 CHEST PORTABLE [RAD] Stat - EKG Interpretation EKG Interpretation (Text): 03/26/18 17:39 EKG - NSR @ 83bpm, left axis deviation, no acute ST segment elevations/ depressions. - similar to EKG from 01/18/2018 (Wilver Hankins) - Medication Orders Current Medication Orders: Albuterol/Ipratropium (Duoneb 3 Mg/0.5 Mg (3 Ml) Ud) 3 ml IH [id number] GUALBERTO Aspirin (Ecotrin) 81 mg PO DAILY GUALBERTO Piperacillin Sod/Tazobactam Sod (Zosyn 3.375 In Ns 100ml) 100 mls @ 200 mls/hr IVPB Q6 GUALBERTO PRN Reason: Protocol Stop: 03/27/18 06:29 Discontinued Medications Ceftriaxone Sodium (Rocephin 1 Gram Ivpb) 1 gm in 100 mls @ 100 mls/hr IVPB STAT STA PRN Reason: Protocol Stop: 03/26/18 18:15 Last Admin: 03/26/18 17:44 Dose: 100 mls/hr eMAR Start Stop Document 03/26/18 17:44 BOBBY (Rec: 03/26/18 17:44 BOBBY [id number]) Intravenous Solution Start Date 03/26/18 Start Time 17:44 End Date 03/26/18 End time 18:14 Total Infusion Time 30 Azithromycin (Zithromax 500mg In Ns) 500 mg in 250 mls @ 167 mls/hr IVPB STAT STA PRN Reason: Protocol Stop: 03/26/18 18:45 Last Admin: 03/26/18 18:10 Dose: 167 mls/hr eMAR Start Stop Document 03/26/18 18:10 BOBBY (Rec: 03/26/18 18:10 BOBBY [id number]) Intravenous Solution Start Date 03/26/18 Start Time 18:10 - Scribe Statement The provider has reviewed the documentation as recorded by the Scribe <David Long - Last Filed: 03/26/18 17:56> <Wilver Hankins - Last Filed: 03/26/18 19:12> - Scribe Statement Obi Sims Provider Scribe Attestation: All medical record entries made by the Scribe were at my direction and personally dictated by me. I have reviewed the chart and agree that the record accurately reflects my personal performance of the history, physical exam, medical decision making, and the department course for this patient. I have also personally directed, reviewed, and agree with the discharge instructions and disposition. (David Long) Disposition/Present on Arrival <David Long - Last Filed: 03/26/18 17:56> - Present on Arrival Any Indicators Present on Arrival: Yes History of DVT/PE: No History of Uncontrolled Diabetes: No Urinary Catheter: Yes History of Decub. Ulcer: No History Surgical Site Infection Following: None - Disposition Have Diagnosis and Disposition been Completed?: Yes Disposition Time: 17:30 Patient Plan: Admission, Telemetry <Wilver Hankins - Last Filed: 03/26/18 19:12> - Disposition Diagnosis: Chest pain, Pneumonia, Pre-syncope Disposition: HOSPITALIZED Patient Problems: Current Active Problems Problem Status Onset Chest pain Acute Pneumonia Acute Pre-syncope Acute Condition: GUARDED
[2018-03-26 15:34] LABS: BASO # 0.03 K/mm3 (0.0-2.0); BASO % 0.3 % (0.0-3.0); EOS # 0.6 (0.0-0.7); GRAN # 5.03 (1.4-6.5); HEMOGLOBIN 10.2 g/dL (12.0-16.0); LYMPH # 2.3 (1.2-3.4); LYMPH % 25.7 % (22.0-35.0); MEAN CELL VOLUME 86.1 fl (80.0-105.0); MEAN CORPUSCULAR HEMOGLOBIN 27.9 pg (25.0-35.0); MEAN CORPUSCULAR HGB CONC 32.4 g/dl (31.0-37.0); MEAN PLATELET VOLUME 9.8 fl (7.0-11.0); RBC 3.66 10^6/uL (3.5-6.1); RED CELL DISTRIBUTION WIDTH 17.6 % (11.5-14.5)
[2018-03-26 15:40] LABS: INR 1.04; PARTIAL THROMBOPLASTIN TIME 29.4 Seconds (25.1-36.5); PROTHROMBIN TIME 11.9 SECONDS (9.4-12.5)
[2018-03-26 15:43] LABS: ALB/GLOB RATIO 1.1 (1.1-1.8); ALT/SGPT 13 U/L (7-56); AST/SGOT 25 U/L (14-36); BLOOD UREA NITROGEN 23 mg/dL (7-21); CALCIUM 9.9 mg/dL (8.4-10.5); GFR NON-AFRICAN AMERICAN 32
[2018-03-26 15:53] LABS: B-TYPE NATRIURETIC PEPTIDE 802 pg/mL (0-450); TROPONIN I < 0.01 ng/mL
[2018-03-26] MEDS ORDERED: Azithromycin 500MG/NS 250ml 500 MG/250 ML BAG IVPB STA (17:16)
[2018-03-26] MEDS ORDERED: cefTRIAXone 1 gm 1 GM/100 ML BAG IVPB STA (17:16)
--- NOTE | 2018-03-26 17:49 | RAD ---
Date of service: 03/26/2018 HISTORY: sob COMPARISON: Comparison is made with 01/17/2018 FINDINGS: LUNGS: Hyperinflation of the lungs is again noted. There are reticular opacity seen at the right lower lung may represent small infiltrate. Otherwise no significant interval change. PLEURA: No significant pleural effusion identified, no pneumothorax apparent. CARDIOVASCULAR: Normal. OSSEOUS STRUCTURES: No significant abnormalities. VISUALIZED UPPER ABDOMEN: Normal. OTHER FINDINGS: None. IMPRESSION: Hyperinflation of the lungs. Possible small infiltrate at the right lower lung. Correlate clinically for pneumonia.
[2018-03-26 18:10] LABS: VENOUS BLOOD GAS BASE EXCESS -1.1 mmol/L (0.0-2.0); VENOUS BLOOD GAS PO2 89 mm/Hg (30-55); VENOUS BLOOD PH 7.35 (7.32-7.43)
--- NOTE | 2018-03-26 18:31 | CP.PCM.HP ---
<Krishna Whyte - Last Filed: 03/26/18 19:49> History of Present Illness - History of Present Illness History of Present Illness: 62 y/o female with PMH of paroxysmal AFib, bioprosthetic mitral valve,CAD, COPD , GI bleed presents to ED with SOB with chest pain since this weekend. She gets dyspnea when she walks and stops by rest. It's associated with sharp left sided chest pain below costal margin and does not radiate. She reported heart palpitations during these episodes that disappear with rest. She repotes mild cough with white sputum. She uses bronchodialtors daily for her COPD. She denied hemoptysis, hematemesis, fever, chills, headache, blurry vision, change of bowel movement, muscle weakness, urinary symptoms. Patient's brother has been sick with pneumonia 2 weeks ago that was treated. Patient was at [facility] office today before coming to ED. 12 point ROS reviewed with pertinent positive stated above. PMH: paroxysmal AFib, CAD, GI bleed, COPD PSH: mitral valve replacement, carpal tunnel, cholecystectomy, ORIF Family History: heart disease SocHx: denies EtOH, tobacco, drug use. Allergies: NKDA PMD: Dr Guerra Embalmer/Funeral Director: Dr. Beebe Present on Admission - Present on Admission Any Indicators Present on Admission: No Past Patient History - Infectious Disease Hx of Infectious Diseases: None - Tetanus Immunizations Tetanus Immunization: Unknown - Past Social History Smoking Status: Never Smoked - CARDIAC Hx Cardiac Disorders: Yes (CAD) - PULMONARY Hx Respiratory Disorders: Yes Hx Chronic Obstructive Pulmonary Disease (COPD): Yes - NEUROLOGICAL Hx Neurological Disorder: Yes Hx Dizziness: Yes Hx Migraine: Yes - HEENT Hx HEENT Problems: No - RENAL Hx Chronic Kidney Disease: No - ENDOCRINE/METABOLIC Hx Endocrine Disorders: No - HEMATOLOGICAL/ONCOLOGICAL Hx Blood Disorders: Yes Hx Blood Transfusions: Yes - INTEGUMENTARY Hx Dermatological Problems: No - MUSCULOSKELETAL/RHEUMATOLOGICAL Hx Musculoskeletal Disorders: Yes Hx Arthritis: Yes Hx Falls: Yes - GASTROINTESTINAL Hx Gastrointestinal Disorders: Yes (gi bleed) - GENITOURINARY/GYNECOLOGICAL Hx Genitourinary Disorders: Yes Hx Urinary Tract Infection: Yes - PSYCHIATRIC Hx Psychophysiologic Disorder: Yes Hx Anxiety: Yes Hx Substance Use: No (Denied by pt.) - SURGICAL HISTORY Hx Cardiac Catheterization: Yes Hx Cholecystectomy: Yes Hx Open Heart Surgery: Yes Hx Valve Replacement: Yes - ANESTHESIA Hx Anesthesia: Yes Meds Allergies/Adverse Reactions: Allergies Allergy/AdvReac Type Severity Reaction Status Date / Time cinnamon Allergy Intermediate ANAPHYLAXIS Verified 03/26/18 14:57 Physical Exam - Constitutional Appears: Well, No Acute Distress - Head Exam Head Exam: ATRAUMATIC, NORMAL INSPECTION, NORMOCEPHALIC - Eye Exam Eye Exam: EOMI, Normal appearance, PERRL Pupil Exam: NORMAL ACCOMODATION, PERRL - ENT Exam ENT Exam: Mucous Membranes Moist, Normal Exam - Neck Exam Neck exam: Positive for: Normal Inspection - Respiratory Exam Respiratory Exam: Decreased Breath Sounds (at lung bases b/l), NORMAL BREATHING PATTERN - Cardiovascular Exam Cardiovascular Exam: REGULAR RHYTHM, +S1, +S2, Systolic Murmur - GI/Abdominal Exam GI & Abdominal Exam: Normal Bowel Sounds, Soft. absent: Mass, Tenderness - Extremities Exam Extremities exam: Positive for: normal capillary refill, normal inspection, pedal pulses present. Negative for: pedal edema - Back Exam Back exam: NORMAL INSPECTION - Neurological Exam Neurological exam: Alert, CN II-XII Intact, Oriented x3, Reflexes Normal - Psychiatric Exam Psychiatric exam: Normal Affect, Normal Mood - Skin Skin Exam: Dry, Intact, Normal Color, Warm Results - Vital Signs Recent Vital Signs: Last Vital Signs Temp 99.9 F H 03/26/18 14:57 Pulse 92 H 03/26/18 18:17 Resp 17 03/26/18 18:17 BP 136/84 03/26/18 18:17 Pulse Ox 100 03/26/18 18:17 - Labs Result Diagrams: 03/26/18 15:20 03/26/18 15:20 Labs: Laboratory Results - last 24 hr 03/26/18 18:04 pO2 89 H VBG pH 7.35 VBG pCO2 45.0 VBG HCO3 24.8 VBG Total CO2 26.2 VBG O2 Sat (Calc) 99.3 H VBG Base Excess -1.1 L VBG Potassium 4.7 Sodium 137.0 Chloride 107.0 Glucose 128 H Lactate 1.7 FiO2 21.0 Venous Blood Potassium 4.7 Assessment & Plan - Assessment and Plan (Free Text) Assessment: 62 y/o female with PMH of paroxysmal AFib, bioprosthetic mitral valve,CAD, COPD , GI bleed presents to ED with extensional dyspnea associated with sharp chest pain since this weekend. CXR showed right lower lung reticular opacity and b/l lung hyperinflation, trop (-)x1, EKG: NSR @83 with left axis. Patient admitted for dyspnea work up given her cardiac history Plan: Exertional dyspnea with chest pain likely due to peumonia or cardiac ischemia unlikely due to CHF exacerbation. no LE edema, not volume overloaded CXR showed right lower lung reticular opacity and b/l lung hyperinflation EKG: NSR @83 with left axis trop (-)x1 continue to trend cardiology consulted Dr Beebe continue home med asa, simvastatin procal ordered urine streptococcal antigen ordered urine legionella antigen ordered blood cx ordered d/c zithromax and rocephin started zosyn O2 NC prn duoneb q6 dane, q2 prn started symbicort vitals q4h ABG: pH 7.35. pCO2 45, pO2 89 H/O Parxoysmal AFib continue with home med cardizem and metoprolol H/O CHF no clinical signs of CHF exacerbation echo (November 2017) showed EF 65% hold lasix for now. Cr 1.6 baseline 0.7 BNP 802 Hyperkalemia K 5.4 15 mg kayxalate monitor k at AM H/O vitamen D deficiency continue home med Ergocalciferol Prophylaxis DVT ppx SCD GI ppx pepcid Heart healthy diet Case reviewed and plan discussed with attending Dr Casas <Brittany Casas - Last Filed: 03/27/18 17:26> Results - Vital Signs Recent Vital Signs: Last Vital Signs Temp 98 F 03/27/18 12:00 Pulse 102 H 03/27/18 14:00 Resp 18 03/27/18 12:00 BP 127/68 03/27/18 15:44 Pulse Ox 100 03/26/18 18:17 - Labs Result Diagrams: 03/27/18 02:30 03/27/18 02:30 Labs: Laboratory Results - last 24 hr 03/26/18 03/27/18 03/27/18 18:04 02:30 02:30 WBC RBC Hgb Hct MCV MCH MCHC RDW Plt Count MPV Gran % Lymph % (Auto) [place] % (Auto) Eos % (Auto) Baso % (Auto) Gran # Lymph # (Auto) [place] # (Auto) Eos # (Auto) Baso # (Auto) pO2 89 H VBG pH 7.35 VBG pCO2 45.0 VBG HCO3 24.8 VBG Total CO2 26.2 VBG O2 Sat (Calc) 99.3 H VBG Base Excess -1.1 L VBG Potassium 4.7 Sodium 137.0 139 Chloride 107.0 109 H Glucose 128 H Lactate 1.7 FiO2 21.0 Potassium 4.6 Carbon Dioxide 22 Anion Gap 13 BUN 23 H Creatinine 1.7 H Est GFR ( Amer) 37 Est GFR (Non-Af Amer) 30 Random Glucose 117 H Calcium 9.3 Total Bilirubin 0.4 AST 24 ALT 10 Alkaline Phosphatase 191 H Troponin I < 0.01 Total Protein 6.9 Albumin 3.6 Globulin 3.4 Albumin/Globulin Ratio 1.1 Procalcitonin 0.05 L Venous Blood Potassium 4.7 Urine Color Urine Appearance Urine pH Ur Specific [place] Urine Protein Urine Glucose (UA) Urine Ketones Urine Blood Urine Nitrate Urine Bilirubin Urine Urobilinogen Ur Leukocyte Esterase Urine RBC Urine WBC Ur Epithelial Cells Urine Bacteria 03/27/18 03/27/18 03/27/18 02:30 09:10 15:00 WBC 6.6 D RBC 3.33 L Hgb 9.4 L Hct 28.4 L MCV 85.3 MCH 28.2 MCHC 33.1 RDW 17.8 H Plt Count 217 MPV 10.2 Gran % 49.1 L Lymph % (Auto) 28.2 [place] % (Auto) 13.7 H Eos % (Auto) 8.5 H Baso % (Auto) 0.5 Gran # 3.21 Lymph # (Auto) 1.9 [place] # (Auto) 0.9 H Eos # (Auto) 0.6 Baso # (Auto) 0.03 pO2 VBG pH VBG pCO2 VBG HCO3 VBG Total CO2 VBG O2 Sat (Calc) VBG Base Excess VBG Potassium Sodium Chloride Glucose Lactate FiO2 Potassium Carbon Dioxide Anion Gap BUN Creatinine Est GFR ( Amer) Est GFR (Non-Af Amer) Random Glucose Calcium Total Bilirubin AST ALT Alkaline Phosphatase Troponin I < 0.01 Total Protein Albumin Globulin Albumin/Globulin Ratio Procalcitonin Venous Blood Potassium Urine Color Yellow Urine Appearance Clear Urine pH 5.5 Ur Specific [place] 1.015 Urine Protein Negative Urine Glucose (UA) Negative Urine Ketones Negative Urine Blood Negative Urine Nitrate Negative Urine Bilirubin Negative Urine Urobilinogen 0.2 Ur Leukocyte Esterase Small H Urine RBC Negative Urine WBC 1 - 3 Ur Epithelial Cells 0 - 2 Urine Bacteria Small Attending/Attestation - Attestation I have personally seen and examined this patient.: Yes I have fully participated in the care of the patient.: Yes I have reviewed all pertinent clinical information: Yes Notes (Text): 03/27/18 17:21 63 yrs old female with PMH of paroxysmal AFib not on oral anticoagulation due to H/O GI bleeding, MR, SP bioprosthetic mitral valve,CAD, COPD, and chronic anemia presents to ED with SOB with chest pain EKG is negative for ischemic changes. Patient is not wheezing. There is no sign of fluid overload. Patient is afebrile, We will admit patient in telemetry, will get serial troponin. We will get cardiology consult. Possible Pneumonia , will start on antibiotic, will get check Procalcitionin level and urinary antigen for streptocoal Pneumonia urinary antigen and legionella antigen.
--- NOTE | 2018-03-26 20:48 | CARD ---
APPROVED REPORT Date of service: 03/26/2018 EKG Measurement Heart [id number] <Conclusion> Normal sinus rhythm Left axis deviation Minimal voltage criteria for LVH, may be normal variant Abnormal ECG
[2018-03-26] MEDS ORDERED: Oxycodone/Acetaminophen 5/325 mg Tab PO STA ×2 (20:59→23:12)
[2018-03-26] MEDS: Albuterol-Ipratrop 3 mg / 0.5 (3 ml) UD IH SCH (21:05)
[2018-03-26] MEDS: Piperacillin/Tazobact 3.375 gm 100 ML IVPB SCH (23:22)
[2018-03-27] MEDS: Albuterol-Ipratrop 3 mg / 0.5 (3 ml) UD IH SCH ×4 (01:23→19:27)
[2018-03-27 03:00] LABS: BASO # 0.03 K/mm3 (0.0-2.0); BASO % 0.5 % (0.0-3.0); EOS # 0.6 (0.0-0.7); EOS % 8.5 % (1.5-5.0); GRAN # 3.21 (1.4-6.5); GRAN % 49.1 % (50.0-68.0); HEMOGLOBIN 9.4 g/dL (12.0-16.0); LYMPH # 1.9 (1.2-3.4); LYMPH % 28.2 % (22.0-35.0); MEAN CELL VOLUME 85.3 fl (80.0-105.0); MEAN CORPUSCULAR HEMOGLOBIN 28.2 pg (25.0-35.0); MEAN CORPUSCULAR HGB CONC 33.1 g/dl (31.0-37.0); MEAN PLATELET VOLUME 10.2 fl (7.0-11.0); MONO # 0.9 (0.1-0.6); MONO % 13.7 % (1.0-6.0); RBC 3.33 10^6/uL (3.5-6.1); RED CELL DISTRIBUTION WIDTH 17.8 % (11.5-14.5); WHITE BLOOD COUNT 6.6 10^3/ul (4.5-11.0)
[2018-03-27 03:28] LABS: TROPONIN I < 0.01 ng/mL
[2018-03-27 03:58] LABS: ALB/GLOB RATIO 1.1 (1.1-1.8); ALBUMIN 3.6 g/dL (3.0-4.8); ALT/SGPT 10 U/L (7-56); AST/SGOT 24 U/L (14-36); BLOOD UREA NITROGEN 23 mg/dL (7-21); CALCIUM 9.3 mg/dL (8.4-10.5); GFR NON-AFRICAN AMERICAN 30
[2018-03-27] MEDS: Piperacillin/Tazobact 3.375 gm 100 ML IVPB SCH (05:45)
[2018-03-27] MEDS ORDERED: Sodium Chloride 0.9% 1,000 ML IV SCH (09:45)
[2018-03-27] MEDS: Magnesium Oxide 400 mg Tab UD PO SCH (09:59)
[2018-03-27] MEDS: diltiaZEM 120 mg/24 Hours CD Cap PO SCH (09:59)
[2018-03-27] MEDS: Pantoprazole 40 mg EC Tab PO SCH (09:59)
[2018-03-27] MEDS ORDERED: Oxycodone/Acetaminophen 5/325 mg Tab PO ONE (10:12)
--- NOTE | 2018-03-27 12:42 | CP.PCM.PN ---
<Krishna Whyte - Last Filed: 03/27/18 12:39> Subjective - Date & Time of Evaluation Date of Evaluation: 03/27/18 Time of Evaluation: 06:01 - Subjective Subjective: Krishna Whyte DO PGY-1, Internal Medicine Resident. Hospitalist Progress Note Patient seen and examined at bedside. Patient is resting in bed, awake and oriented. No acute events overnight. Tolerating her diet with regular bowel movements. Her CP and SOB are getting better Patient denied palpitations, headache, fever. Objective - Vital Signs/Intake and Output Vital Signs (last 24 hours): Temp Pulse Resp BP Pulse Ox 98.0 F 103 H 19 140/68 100 03/27/18 06:00 03/27/18 10:00 03/27/18 06:00 03/27/18 10:00 03/26/18 18:17 Intake and Output: 03/27/18 03/27/18 06:59 18:59 Intake Total 400 Output Total 0 Balance 400 - Medications Medications: Current Medications Albuterol/Ipratropium (Duoneb 3 Mg/0.5 Mg (3 Ml) Ud) 3 ml IH [id number] [facility] Last Admin: 03/27/18 07:52 Dose: Not Given Aspirin (Ecotrin) 81 mg PO DAILY [facility] Last Admin: 03/27/18 09:58 Dose: 81 mg Atorvastatin Calcium (Lipitor) 10 mg PO HS [facility] Last Admin: 03/26/18 21:31 Dose: 10 mg Diltiazem HCl (Cardizem Cd) 120 mg PO DAILY [facility] Last Admin: 03/27/18 09:59 Dose: 120 mg Ergocalciferol (Drisdol 50,000 Intl Units Cap) 1 cap PO QWK [facility] Famotidine (Pepcid) 40 mg PO HS [facility] Last Admin: 03/26/18 21:31 Dose: 40 mg Ferrous Sulfate (Feosol) 324 mg PO BID [facility] Last Admin: 03/27/18 09:59 Dose: 324 mg Loratadine (Claritin) 10 mg PO DAILY [facility] Last Admin: 03/27/18 09:59 Dose: 10 mg Magnesium Oxide (Mag-Ox) 400 mg PO DAILY [facility] Last Admin: 03/27/18 09:59 Dose: 400 mg Metoprolol Tartrate (Lopressor) 25 mg PO BID [facility] Last Admin: 03/27/18 10:00 Dose: 25 mg Montelukast Sodium (Singulair) 10 mg PO HS [facility] Last Admin: 03/26/18 21:31 Dose: 10 mg Non-Formulary Medication (Budesonide/Formoterol Fumarate [Symbicort 80-4.5 Mcg Inhaler]) 1 aer IH DAILY [facility] Last Admin: 03/27/18 12:37 Dose: Not Given Pantoprazole Sodium (Protonix Ec Tab) 40 mg PO DAILY [facility] Last Admin: 03/27/18 09:59 Dose: 40 mg - Labs Labs: 03/27/18 02:30 03/27/18 02:30 PT 11.9 SECONDS (9.4-12.5) 03/26/18 15:20 INR 1.04 03/26/18 15:20 APTT 29.4 Seconds (25.1-36.5) 03/26/18 15:20 - Additional Findings Additional findings: - Constitutional Appears: Well, No Acute Distress - Head Exam Head Exam: ATRAUMATIC, NORMAL INSPECTION, NORMOCEPHALIC - Eye Exam Eye Exam: EOMI, Normal appearance, PERRL Pupil Exam: NORMAL ACCOMODATION, PERRL - ENT Exam ENT Exam: Mucous Membranes Moist, Normal Exam - Neck Exam Neck exam: Positive for: Normal Inspection - Respiratory Exam Respiratory Exam: Decreased Breath Sounds (at lung bases b/l), NORMAL BREATHING PATTERN - Cardiovascular Exam Cardiovascular Exam: REGULAR RHYTHM, +S1, +S2, Systolic Murmur - GI/Abdominal Exam GI & Abdominal Exam: Normal Bowel Sounds, Soft. absent: Mass, Tenderness - Extremities Exam Extremities exam: Positive for: normal capillary refill, normal inspection, pedal pulses present. Negative for: pedal edema - Back Exam Back exam: NORMAL INSPECTION - Neurological Exam Neurological exam: Alert, CN II-XII Intact, Oriented x3, Reflexes Normal - Psychiatric Exam Psychiatric exam: Normal Affect, Normal Mood - Skin Skin Exam: Dry, Intact, Normal Color, Warm Assessment and Plan - Assessment and Plan (Free Text) Assessment: 62 y/o female with PMH of paroxysmal AFib, bioprosthetic mitral valve,CAD, COPD , GI bleed presents to ED with extensional dyspnea associated with sharp chest pain since this weekend. CXR showed right lower lung reticular opacity and b/l lung hyperinflation, trop (-)x1, EKG: NSR @83 with left axis. Patient admitted for dyspnea work up given her cardiac history Plan: Exertional dyspnea with chest pain likely due to peumonia or cardiac ischemia unlikely due to CHF exacerbation. no LE edema, not volume overloaded CXR showed right lower lung reticular opacity and b/l lung hyperinflation EKG: NSR @83 with left axis trop (-)x1 continue to trend cardiology consulted Dr Beebe continue home med asa, simvastatin procal ordered urine streptococcal antigen ordered urine legionella antigen ordered blood cx ordered d/c zithromax and rocephin started zosyn O2 NC prn duoneb q6 dane, q2 prn started symbicort vitals q4h ABG: pH 7.35. pCO2 45, pO2 89 repear CXR ordered d/c IVF H/O Parxoysmal AFib continue with home med cardizem and metoprolol H/O CHF no clinical signs of CHF exacerbation echo (November 2017) showed EF 65% hold lasix for now. Cr 1.6 baseline 0.7 BNP 802 Hyperkalemia K 5.4 15 mg kayxalate monitor k at AM H/O vitamen D deficiency continue home med Ergocalciferol Prophylaxis DVT ppx SCD GI ppx pepcid Heart healthy diet Case reviewed and plan discussed with attending Dr Casas <Brittany Casas - Last Filed: 03/28/18 17:35> Objective - Vital Signs/Intake and Output Vital Signs (last 24 hours): Temp Pulse Resp BP Pulse Ox 97.8 F 74 18 114/67 100 03/28/18 12:00 03/28/18 12:00 03/28/18 12:00 03/28/18 12:00 03/28/18 06:00 Intake and Output: 03/28/18 03/28/18 06:59 18:59 Intake Total 960 Balance 960 - Labs Labs: 03/28/18 06:45 03/28/18 06:45 PT 11.9 SECONDS (9.4-12.5) 03/26/18 15:20 INR 1.04 03/26/18 15:20 APTT 29.4 Seconds (25.1-36.5) 03/26/18 15:20 Attending/Attestation - Attestation I have personally seen and examined this patient.: Yes I have fully participated in the care of the patient.: Yes I have reviewed all pertinent clinical information, including history, physical exam and plan: Yes Notes (Text): 03/28/18 17:29 Medical record note made by the resident after discussion with my direction and input after the patient was personally seen and examined by me. I have reviewed the chart and agree that the record accurately reflects by personal performance of the history, physical exam, data review, and medical decision-making, in the course for the patient. I have also personally directed the plan of care. 63 yrs old female with PMH of paroxysmal AFib not on oral anticoagulation due to H/O GI bleeding, MR, SP bioprosthetic mitral valve,CAD, COPD, and chronic anemia presents to ED with SOB with chest pain.EKG is negative for ischemic changes.Serial troponins are normal. Patient is not wheezing.There is no sign of fluid overload. Patient was evaluated by cardiology, no further work up is needed. Possible Pneumonia ,Procalcitonin level is normal.We will stop IV antibiotics and will start patient on oral antibiotics. Creatinin is 1.7, will gently hydrate patient and will monitor creatinin.
--- NOTE | 2018-03-27 13:50 | RAD ---
Date of service: 03/27/2018 HISTORY: rule out pneumonia COMPARISON: 03/26/2018 TECHNIQUE: Chest PA and lateral FINDINGS: LUNGS: Linear atelectasis in the right lung PLEURA: No significant pleural effusion identified. No pneumothorax apparent. CARDIOVASCULAR: Moderate cardiomegaly and aortic tortuosity OSSEOUS STRUCTURES: Sternal wires VISUALIZED UPPER ABDOMEN: Normal. OTHER FINDINGS: None. IMPRESSION: No active disease. No evidence of pneumonia
[2018-03-27 16:05] LABS: PH,URINE 5.5 (4.7-8.0); URINE BILIRUBIN NEGATIVE (NEGATIVE); URINE BLOOD NEGATIVE (NEGATIVE); URINE GLUCOSE (UA) NEGATIVE (NEGATIVE); URINE LEUKOCYTE ESTERASE SMALL Leu/uL (NEGATIVE); URINE PROTEIN NEGATIVE mg/dL (<30 mg/dL); URINE UROBILINOGEN 0.2 E.U./dL (<1 E.U./dL)
[2018-03-27 16:15] LABS: URINE APPEARANCE CLEAR (CLEAR); URINE COLOR YELLOW (YELLOW)
[2018-03-27 16:31] LABS: URINE BACTERIA SMALL (NEG); URINE EPITHELIAL CELLS 0 - 2 /hpf (0-5); URINE RBC NEGATIVE /hpf (0-2)
[2018-03-27 18:41] VITALS: RESP 18
[2018-03-27] MEDS ORDERED: Oxycodone/Acetaminophen 5/325 mg Tab PO STA (20:36)
[2018-03-28] MEDS: Albuterol-Ipratrop 3 mg / 0.5 (3 ml) UD IH SCH ×3 (02:00→13:52)
--- NOTE | 2018-03-28 02:12 | CON ---
DATE: 03/27/2018 REASON FOR CONSULTATION: Shortness of breath, history of fall, paroxysmal atrial fibrillation, mitral valve repair. BRIEF CLINICAL HISTORY: This is a 63-year-old female with past medical history significant for severe mitral valve prolapse status post MV replacement bioprosthetic, yesterday saw in office, was okay. Then she said after the office, she went to the [facility], was shortness of breath and came to emergency room and admitted with possible pneumonia. Denies any chest pain, shortness of breath, or any palpitation now. PAST MEDICAL HISTORY: Significant for pneumonia, COPD, CHF, severe mitral regurgitation, severe mitral valve prolapse status post mitral valve replacement, history of GI bleed, off anticoagulation because the patient was postop remain in possible atrial fibrillation, anticoagulation will be started though it was very difficult to control because of the noncompliance with outpatient, patient admitted with multiple times with GI bleed, off anticoagulation, since then the patient in normal sinus. PAST SURGICAL HISTORY: Significant for cholecystectomy, carpal tunnel syndrome, bunionectomy, removal of bunion from the toe of the foot, most recently the patient has a mitral valve replacement, bioprosthetic, replacement in [facility] on 04/16/2017, history of cardiac catheterization twice just before the valve surgery and one is 2 years before nonobstructive coronary artery disease, history of massive multiple GI bleeds, history of paroxysmal atrial fibrillation and since then patient normally is fairly stable, off anticoagulation. SOCIAL HISTORY: The patient denies any history of alcohol abuse. Denies any history of smoking. CURRENT MEDICATIONS: The patient is taking at home simvastatin, Singulair, Protonix, metoprolol 25, magnesium, losartan, furosemide, Cardizem CD 120 mg daily, inhaler, and aspirin. REVIEW OF SYSTEMS: As per HPI. PHYSICAL EXAMINATION VITAL SIGNS: Temperature afebrile, heart rate 60, blood pressure 130/80. HEENT: PERRLA. Extraocular muscles intact. NECK: Supple. No carotid bruit or thyromegaly. CHEST: Clear to auscultation. HEART: S1 and S2, regular. ABDOMEN: Soft. EXTREMITIES: Clubbing and cyanosis negative. LABORATORY DATA: Blood workup as follows: WBC 6.6, hemoglobin 9.2, hematocrit of 28.4, and platelet count of 217. Chemistry shows sodium 139, potassium 4.6, chloride 109, carbon dioxide 22, anion gap of 13. BUN 13, creatinine 1.7. History of anemia. IMPRESSION: This is a 63-year-old female with past medical history significant for nonobstructive coronary artery disease, severe mitral valve prolapse status post mitral valve replacement with bioprosthetic in 04/2017, history of paroxysmal atrial fibrillation, was on anticoagulation, massive gastrointestinal multiple bleed, off anticoagulation. RECOMMENDATIONS: Repeat chest x-ray PA and lateral, as admitting x-ray shows pneumonia. If it is negative, clinically the patient does not sound pneumonic and no leukocytosis. If remains, we will possibly discharge her on Zithromax. Continue diuretics. Continue Cardizem CD 120 mg daily, continue baby aspirin, and continue metoprolol twice a day. Thank you, Dr. Casas for providing us the opportunity in taking care of the patient, Dariana Mcgregor. Brittany Beebe MD
[2018-03-28] MEDS ORDERED: Oxycodone/Acetaminophen 5/325 mg Tab PO STA (05:33)
[2018-03-28 06:50] VITALS: O2SAT 100
--- NOTE | 2018-03-28 06:50 | CP.PCM.PN ---
Subjective - Date & Time of Evaluation Date of Evaluation: 03/28/18 Time of Evaluation: 06:10 - Subjective Subjective: Awake, alert, no distress Reason for consultation and follow up: Cardiac evaluation of shortness of breath , history of Afib, history of mitral valve repair, Seen and examined by me and Dr. Beebe Objective - Vital Signs/Intake and Output Vital Signs (last 24 hours): Temp Pulse Resp BP Pulse Ox 99.3 F 99 H 18 110/66 97 03/28/18 00:01 03/28/18 02:00 03/28/18 00:01 03/28/18 00:01 03/28/18 00:01 Intake and Output: 03/27/18 03/28/18 18:59 06:59 Intake Total 540 Output Total 300 Balance 240 - Medications Medications: Current Medications Albuterol/Ipratropium (Duoneb 3 Mg/0.5 Mg (3 Ml) Ud) 3 ml [facility]H [id number] Last Admin: 03/27/18 19:27 Dose: Not Given Aspirin (Ecotrin) 81 mg PO DAILY [facility] Last Admin: 03/27/18 09:58 Dose: 81 mg Atorvastatin Calcium (Lipitor) 10 mg PO [facility] Last Admin: 03/27/18 21:20 Dose: 10 mg Diltiazem HCl (Cardizem Cd) 120 mg PO DAILY [facility] Last Admin: 03/27/18 09:59 Dose: 120 mg Ergocalciferol (Drisdol 50,000 Intl Units Cap) 1 cap PO QWK [facility] Famotidine (Pepcid) 40 mg PO HS [facility] Last Admin: 03/27/18 21:21 Dose: Not Given Ferrous Sulfate (Feosol) 324 mg PO BID [facility] Last Admin: 03/27/18 18:20 Dose: 324 mg Loratadine (Claritin) 10 mg PO DAILY [facility] Last Admin: 03/27/18 09:59 Dose: 10 mg Magnesium Oxide (Mag-Ox) 400 mg PO DAILY [facility] Last Admin: 03/27/18 09:59 Dose: 400 mg Metoprolol Tartrate (Lopressor) 25 mg PO BID [facility] Last Admin: 03/27/18 18:20 Dose: 25 mg Montelukast Sodium (Singulair) 10 mg PO [facility] Last Admin: 03/27/18 21:20 Dose: 10 mg Non-Formulary Medication (Budesonide/Formoterol Fumarate [Symbicort 80-4.5 Mcg Inhaler]) 1 aer IH DAILY [facility] Last Admin: 03/27/18 12:37 Dose: Not Given Pantoprazole Sodium (Protonix Ec Tab) 40 mg PO DAILY [facility] Last Admin: 03/27/18 09:59 Dose: 40 mg - Labs Labs: 03/27/18 02:30 03/27/18 02:30 PT 11.9 SECONDS (9.4-12.5) 03/26/18 15:20 INR 1.04 03/26/18 15:20 APTT 29.4 Seconds (25.1-36.5) 03/26/18 15:20 - Constitutional Appears: No Acute Distress - Eye Exam Eye Exam: Normal appearance - ENT Exam ENT Exam: Mucous Membranes Moist - Respiratory Exam Respiratory Exam: Decreased Breath Sounds, Clear to Ausculation Bilateral, NORMAL BREATHING PATTERN - Cardiovascular Exam Cardiovascular Exam: +S1, +S2 - GI/Abdominal Exam GI & Abdominal Exam: Soft, Normal Bowel Sounds - Extremities Exam Extremities Exam: Normal Capillary Refill - Neurological Exam Neurological Exam: Alert, Awake, Oriented x3 - Psychiatric Exam Psychiatric exam: Normal Affect - Skin Skin Exam: Intact, Warm Assessment and Plan - Assessment and Plan (Free Text) Assessment: A 63 year old female who came in to the ER due to shortness of breath. History of mitral valve prolapse MV replacement at [facility] 04/16/2017. Atrial fibrillation ,history of fall, pneumonia, CHF, Gi bleeding requiring blood transfusion, cholecystectomy, carpal tunnel syndrome, removal of bunion from toe,non obstructuve coronary artery disease. Telemetry shows NSR. no anticoagulation due to massive history of GI bleeding. Chest Xray showed questionable pneumonia , repeat PA/LAT chest X ray showed negative for pneumonia and some atelectasis on the right lung. Plan: No distress, wanted to go home Chest PA/Lat- negative for pneumonia Heart rate and blood pressure controlled Stable cardiac status Remained on Normal sinus rhythm, no anticoagulation Discontinue telemetry May discharge from cardiac standpoint Continue current treatment Continue current medications Will follow up Plan and treatment discussed with Dr. Beebe
[2018-03-28 06:57] LABS: BASO # 0.02 K/mm3 (0.0-2.0); BASO % 0.3 % (0.0-3.0); EOS # 0.5 (0.0-0.7); EOS % 7.2 % (1.5-5.0); GRAN # 3.78 (1.4-6.5); GRAN % 55.1 % (50.0-68.0); HEMOGLOBIN 9.1 g/dL (12.0-16.0); LYMPH # 1.6 (1.2-3.4); LYMPH % 22.9 % (22.0-35.0); MEAN CELL VOLUME 85.2 fl (80.0-105.0); MEAN CORPUSCULAR HEMOGLOBIN 28.7 pg (25.0-35.0); MEAN CORPUSCULAR HGB CONC 33.7 g/dl (31.0-37.0); MEAN PLATELET VOLUME 9.1 fl (7.0-11.0); MONO % 14.5 % (1.0-6.0); RBC 3.17 10^6/uL (3.5-6.1); RED CELL DISTRIBUTION WIDTH 17.6 % (11.5-14.5); WHITE BLOOD COUNT 6.9 10^3/ul (4.5-11.0)
[2018-03-28 07:14] LABS: ALB/GLOB RATIO 1.1 (1.1-1.8); ALBUMIN 3.6 g/dL (3.0-4.8); CALCIUM 9.5 mg/dL (8.4-10.5)
[2018-03-28] MEDS: diltiaZEM 120 mg/24 Hours CD Cap PO SCH (10:25)
[2018-03-28] MEDS: Pantoprazole 40 mg EC Tab PO SCH (10:26)
[2018-03-28] MEDS: Magnesium Oxide 400 mg Tab UD PO SCH (10:26)
[2018-03-28] MEDS ORDERED: Pneumococcal 23-Valent Vaccine IM ONE (10:42)
--- NOTE | 2018-03-28 12:03 | CP.PCM.DIS ---
<IsabellKrishna - Last Filed: 03/28/18 12:43> Provider - Provider Date of Admission: 03/26/18 17:19 Attending physician: Brittany Casas MD Primary care physician: Baltazar Guerra MD Consults: cardiology Time Spent in preparation of Discharge (in minutes): 45 Hospital Course - Lab Results Lab Results: Micro Results 03/27/18 15:00 Urine Urine Culture - Final No Growth (<1,000 CFU/ML) 03/26/18 17:35 Blood-Venous Blood Culture - Preliminary NO GROWTH AFTER 24 HOURS Most Recent Lab Values WBC 6.9 10^3/ul (4.5-11.0) 03/28/18 06:45 RBC 3.17 10^6/uL (3.5-6.1) L 03/28/18 06:45 Hgb 9.1 g/dL (12.0-16.0) L 03/28/18 06:45 Hct 27.0 % (36.0-48.0) L 03/28/18 06:45 MCV 85.2 fl (80.0-105.0) 03/28/18 06:45 MCH 28.7 pg (25.0-35.0) 03/28/18 06:45 MCHC 33.7 g/dl (31.0-37.0) 03/28/18 06:45 RDW 17.6 % (11.5-14.5) H 03/28/18 06:45 Plt Count 219 10^3/uL (120.0-450.0) 03/28/18 06:45 MPV 9.1 fl (7.0-11.0) 03/28/18 06:45 Gran % 55.1 % (50.0-68.0) 03/28/18 06:45 Lymph % (Auto) 22.9 % (22.0-35.0) 03/28/18 06:45 Collier % (Auto) 14.5 % (1.0-6.0) H 03/28/18 06:45 Eos % (Auto) 7.2 % (1.5-5.0) H 03/28/18 06:45 Baso % (Auto) 0.3 % (0.0-3.0) 03/28/18 06:45 Gran # 3.78 (1.4-6.5) 03/28/18 06:45 Lymph # (Auto) 1.6 (1.2-3.4) 03/28/18 06:45 Collier # (Auto) 1.0 (0.1-0.6) H 03/28/18 06:45 Eos # (Auto) 0.5 (0.0-0.7) 03/28/18 06:45 Baso # (Auto) 0.02 K/mm3 (0.0-2.0) 03/28/18 06:45 PT 11.9 SECONDS (9.4-12.5) 03/26/18 15:20 INR 1.04 03/26/18 15:20 APTT 29.4 Seconds (25.1-36.5) 03/26/18 15:20 pO2 89 mm/Hg (30-55) H 03/26/18 18:04 VBG pH 7.35 (7.32-7.43) 03/26/18 18:04 VBG pCO2 45.0 (40-60) 03/26/18 18:04 VBG HCO3 24.8 mmol/l (21-28) 03/26/18 18:04 VBG Total CO2 26.2 mmol.L (22-28) 03/26/18 18:04 VBG O2 Sat (Calc) 99.3 % (40-65) H 03/26/18 18:04 VBG Base Excess -1.1 mmol/L (0.0-2.0) L 03/26/18 18:04 VBG Potassium 4.7 mmol/L (3.6-5.2) 03/26/18 18:04 Sodium 137.0 mmol/L (132-148) 03/26/18 18:04 Chloride 107.0 mmol/L (98-107) 03/26/18 18:04 Glucose 128 mg/dl (65-105) H 03/26/18 18:04 Lactate 1.7 mmol/L (0.7-2.1) 03/26/18 18:04 FiO2 21.0 % 03/26/18 18:04 Sodium 137 mmol/L (132-148) 03/28/18 06:45 Potassium 4.1 mmol/L (3.6-5.0) 03/28/18 06:45 Chloride 104 mmol/L (98-107) 03/28/18 06:45 Carbon Dioxide 22 mmol/L (21-33) 03/28/18 06:45 Anion Gap 15 (10-20) 03/28/18 06:45 BUN 26 mg/dL (7-21) H 03/28/18 06:45 Creatinine 1.5 mg/dl (0.7-1.2) H 03/28/18 06:45 Est GFR ( Amer) 42 03/28/18 06:45 Est GFR (Non-Af Amer) 35 03/28/18 06:45 Random Glucose 96 mg/dL (70-110) 03/28/18 06:45 Calcium 9.5 mg/dL (8.4-10.5) 03/28/18 06:45 Magnesium 1.8 mg/dL (1.7-2.2) 03/26/18 15:20 Total Bilirubin 0.5 mg/dL (0.2-1.3) 03/28/18 06:45 AST 25 U/L (14-36) 03/28/18 06:45 ALT 13 U/L (7-56) 03/28/18 06:45 Alkaline Phosphatase 180 U/L (38-126) H 03/28/18 06:45 Troponin I < 0.01 ng/mL 03/27/18 09:10 NT-Pro-B Natriuret Pep 802 pg/mL (0-450) H 03/26/18 15:20 Total Protein 7.0 g/dL (5.8-8.3) 03/28/18 06:45 Albumin 3.6 g/dL (3.0-4.8) 03/28/18 06:45 Globulin 3.4 gm/dL 03/28/18 06:45 Albumin/Globulin Ratio 1.1 (1.1-1.8) 03/28/18 06:45 Procalcitonin 0.05 NG/ML (0.19-0.49) L 03/27/18 02:30 Venous Blood Potassium 4.7 mmol/L (3.6-5.2) 03/26/18 18:04 Urine Color Yellow (YELLOW) 03/27/18 15:00 Urine Appearance Clear (CLEAR) 03/27/18 15:00 Urine pH 5.5 (4.7-8.0) 03/27/18 15:00 Ur Specific Cookson 1.015 (1.005-1.035) 03/27/18 15:00 Urine Protein Negative mg/dL (<30 mg/dL) 03/27/18 15:00 Urine Glucose (UA) Negative mg/dL (NEGATIVE) 03/27/18 15:00 Urine Ketones Negative mg/dL (NEGATIVE) 03/27/18 15:00 Urine Blood Negative (NEGATIVE) 03/27/18 15:00 Urine Nitrate Negative (NEGATIVE) 03/27/18 15:00 Urine Bilirubin Negative (NEGATIVE) 03/27/18 15:00 Urine Urobilinogen 0.2 E.U./dL (<1 E.U./dL) 03/27/18 15:00 Ur Leukocyte Esterase Small Miguel/uL (NEGATIVE) H 03/27/18 15:00 Urine RBC Negative /hpf (0-2) 03/27/18 15:00 Urine WBC 1 - 3 /hpf (0-6) 03/27/18 15:00 Ur Epithelial Cells 0 - 2 /hpf (0-5) 03/27/18 15:00 Urine Bacteria Small (NEG) 03/27/18 15:00 Ur L.pneumophila Ag Negative (NEGATIVE) 03/27/18 15:00 - Hospital Course Hospital Course: 62 y/o female with PMH of paroxysmal AFib, bioprosthetic mitral valve,CAD, COPD , GI bleed presents to ED with extensional dyspnea associated with sharp chest pain since this weekend. CXR showed right lower lung reticular opacity and b/l lung hyperinflation, trop (-)x1, EKG: NSR @83 with left axis. Patient was admitted for dyspnea work up given her cardiac history. ACS ruled out. Patient was seen by cardiology who recommended to continue home medications with no further cardiac workup. Patient was treated for pneumonia with IV antibiotic, fluids and bronchodilators and steroids for her COPD and electrolytes repleted as well. Patient has a history of parxoysmal AFib for which, home medications cardizem and metoprolol continued. Patient creatinine was mildly elevated, lasix held and was given fluids. Patient breathing improved and chest pain resolved and was clinically optimized to be discharged home. She was given a prescription of Levaquin for 5 days and to repeat BMP in one week and follow up with her PMD Dr Guerra. On discharge: 1.) Please follow up with your PMD with one week of discharge 2.) Please follow up with your qa automation engineer within one week 3.) Please take your meds as prescribed, including your new antibiotic (5 days) 4.) Please make sure to get blood work done within one week - a prescription for a Basal Metabolic Panel (BMP) has been included If your symptoms persist or worsen please return to nearest emergency room Diet : Heart Healthy diet Patient requested pneumocccal vaccine prior to discharge to home and will receive flu vaccine from Dr. Guerra's office next month. Discharge Exam - Head Exam Head Exam: ATRAUMATIC, NORMAL INSPECTION, NORMOCEPHALIC - Eye Exam Eye Exam: EOMI, Normal appearance, PERRL Pupil Exam: NORMAL ACCOMODATION, PERRL - ENT Exam ENT Exam: Normal Exam - Respiratory Exam Respiratory Exam: NORMAL BREATHING PATTERN - Cardiovascular Exam Cardiovascular Exam: REGULAR RHYTHM, +S1, +S2 - GI/Abdominal Exam GI & Abdominal Exam: Normal Bowel Sounds, Soft - Extremities Exam Extremities exam: full ROM, normal capillary refill, normal inspection - Back Exam Back exam: NORMAL INSPECTION - Neurological Exam Neurological exam: Alert, CN II-XII Intact, Normal Gait, Oriented x3, Reflexes Normal - Psychiatric Exam Psychiatric exam: Normal Affect, Normal Mood - Skin Skin Exam: Dry, Intact, Normal Color, Warm Discharge Plan - Discharge Medications Prescriptions: Aspirin [Ecotrin] 81 mg PO DAILY #30 tabec Levofloxacin [Levaquin] 500 mg PO DAILY #5 tablet - Follow Up Plan Condition: GUARDED Disposition: HOME/ ROUTINE Instructions: Chest Pain (DC), Chest Pain (GEN) Additional Instructions: 1.) Please follow up with your PMD with one week of discharge 2.) Please follow up with your qa automation engineer within one week 3.) Please take your meds as prescribed, including your new antibiotic (5 days) 4.) Please make sure to get blood work done within one week - a prescription for a Basal Metabolic Panel (BMP) has been included If your symptoms persist or worsen please return to nearest emergency room Diet : Heart Healthy diet Patient requested pneumocccal vaccine prior to discharge to home and will receive flu vaccine from Dr. Guerra's office next month. Referrals: Baltazar Guerra MD [Primary Care Provider] - <Brittany Casas - Last Filed: 03/28/18 17:39> Provider - Provider Date of Admission: 03/26/18 17:19 Attending physician: Brittany Casas MD Primary care physician: Baltazar Guerra MD Hospital Course - Lab Results Lab Results: Micro Results 03/27/18 15:00 Urine Urine Culture - Final No Growth (<1,000 CFU/ML) 03/26/18 17:35 Blood-Venous Blood Culture - Preliminary NO GROWTH AFTER 24 HOURS Most Recent Lab Values WBC 6.9 10^3/ul (4.5-11.0) 03/28/18 06:45 RBC 3.17 10^6/uL (3.5-6.1) L 03/28/18 06:45 Hgb 9.1 g/dL (12.0-16.0) L 03/28/18 06:45 Hct 27.0 % (36.0-48.0) L 03/28/18 06:45 MCV 85.2 fl (80.0-105.0) 03/28/18 06:45 MCH 28.7 pg (25.0-35.0) 03/28/18 06:45 MCHC 33.7 g/dl (31.0-37.0) 03/28/18 06:45 RDW 17.6 % (11.5-14.5) H 03/28/18 06:45 Plt Count 219 10^3/uL (120.0-450.0) 03/28/18 06:45 MPV 9.1 fl (7.0-11.0) 03/28/18 06:45 Gran % 55.1 % (50.0-68.0) 03/28/18 06:45 Lymph % (Auto) 22.9 % (22.0-35.0) 03/28/18 06:45 Collier % (Auto) 14.5 % (1.0-6.0) H 03/28/18 06:45 Eos % (Auto) 7.2 % (1.5-5.0) H 03/28/18 06:45 Baso % (Auto) 0.3 % (0.0-3.0) 03/28/18 06:45 Gran # 3.78 (1.4-6.5) 03/28/18 06:45 Lymph # (Auto) 1.6 (1.2-3.4) 03/28/18 06:45 Collier # (Auto) 1.0 (0.1-0.6) H 03/28/18 06:45 Eos # (Auto) 0.5 (0.0-0.7) 03/28/18 06:45 Baso # (Auto) 0.02 K/mm3 (0.0-2.0) 03/28/18 06:45 PT 11.9 SECONDS (9.4-12.5) 03/26/18 15:20 INR 1.04 03/26/18 15:20 APTT 29.4 Seconds (25.1-36.5) 03/26/18 15:20 pO2 89 mm/Hg (30-55) H 03/26/18 18:04 VBG pH 7.35 (7.32-7.43) 03/26/18 18:04 VBG pCO2 45.0 (40-60) 03/26/18 18:04 VBG HCO3 24.8 mmol/l (21-28) 03/26/18 18:04 VBG Total CO2 26.2 mmol.L (22-28) 03/26/18 18:04 VBG O2 Sat (Calc) 99.3 % (40-65) H 03/26/18 18:04 VBG Base Excess -1.1 mmol/L (0.0-2.0) L 03/26/18 18:04 VBG Potassium 4.7 mmol/L (3.6-5.2) 03/26/18 18:04 Sodium 137.0 mmol/L (132-148) 03/26/18 18:04 Chloride 107.0 mmol/L (98-107) 03/26/18 18:04 Glucose 128 mg/dl (65-105) H 03/26/18 18:04 Lactate 1.7 mmol/L (0.7-2.1) 03/26/18 18:04 FiO2 21.0 % 03/26/18 18:04 Sodium 137 mmol/L (132-148) 03/28/18 06:45 Potassium 4.1 mmol/L (3.6-5.0) 03/28/18 06:45 Chloride 104 mmol/L (98-107) 03/28/18 06:45 Carbon Dioxide 22 mmol/L (21-33) 03/28/18 06:45 Anion Gap 15 (10-20) 03/28/18 06:45 BUN 26 mg/dL (7-21) H 03/28/18 06:45 Creatinine 1.5 mg/dl (0.7-1.2) H 03/28/18 06:45 Est GFR ( Amer) 42 03/28/18 06:45 Est GFR (Non-Af Amer) 35 03/28/18 06:45 Random Glucose 96 mg/dL (70-110) 03/28/18 06:45 Calcium 9.5 mg/dL (8.4-10.5) 03/28/18 06:45 Magnesium 1.8 mg/dL (1.7-2.2) 03/26/18 15:20 Total Bilirubin 0.5 mg/dL (0.2-1.3) 03/28/18 06:45 AST 25 U/L (14-36) 03/28/18 06:45 ALT 13 U/L (7-56) 03/28/18 06:45 Alkaline Phosphatase 180 U/L (38-126) H 03/28/18 06:45 Troponin I < 0.01 ng/mL 03/27/18 09:10 NT-Pro-B Natriuret Pep 802 pg/mL (0-450) H 03/26/18 15:20 Total Protein 7.0 g/dL (5.8-8.3) 03/28/18 06:45 Albumin 3.6 g/dL (3.0-4.8) 03/28/18 06:45 Globulin 3.4 gm/dL 03/28/18 06:45 Albumin/Globulin Ratio 1.1 (1.1-1.8) 03/28/18 06:45 Procalcitonin 0.05 NG/ML (0.19-0.49) L 03/27/18 02:30 Venous Blood Potassium 4.7 mmol/L (3.6-5.2) 03/26/18 18:04 Urine Color Yellow (YELLOW) 03/27/18 15:00 Urine Appearance Clear (CLEAR) 03/27/18 15:00 Urine pH 5.5 (4.7-8.0) 03/27/18 15:00 Ur Specific Cookson 1.015 (1.005-1.035) 03/27/18 15:00 Urine Protein Negative mg/dL (<30 mg/dL) 03/27/18 15:00 Urine Glucose (UA) Negative mg/dL (NEGATIVE) 03/27/18 15:00 Urine Ketones Negative mg/dL (NEGATIVE) 03/27/18 15:00 Urine Blood Negative (NEGATIVE) 03/27/18 15:00 Urine Nitrate Negative (NEGATIVE) 03/27/18 15:00 Urine Bilirubin Negative (NEGATIVE) 03/27/18 15:00 Urine Urobilinogen 0.2 E.U./dL (<1 E.U./dL) 03/27/18 15:00 Ur Leukocyte Esterase Small Miguel/uL (NEGATIVE) H 03/27/18 15:00 Urine RBC Negative /hpf (0-2) 03/27/18 15:00 Urine WBC 1 - 3 /hpf (0-6) 03/27/18 15:00 Ur Epithelial Cells 0 - 2 /hpf (0-5) 03/27/18 15:00 Urine Bacteria Small (NEG) 03/27/18 15:00 Ur L.pneumophila Ag Negative (NEGATIVE) 03/27/18 15:00 Attending/Attestation - Attestation I have personally seen and examined this patient.: Yes I have fully participated in the care of the patient.: Yes I have reviewed all pertinent clinical information, including history, physical exam and plan: Yes Notes (Text): 03/28/18 17:36 Medical record note made by the resident after discussion with my direction and input after the patient was personally seen and examined by me. I have reviewed the chart and agree that the record accurately reflects by personal performance of the history, physical exam, data review, and medical decision-making, in the course for the patient. I have also personally directed the plan of care. 63 yrs old female with PMH of paroxysmal AFib not on oral anticoagulation due to H/O GI bleeding, MR, SP bioprosthetic mitral valve,CAD, COPD, and chronic anemia was admitted SOB with chest pain.EKG is negative for ischemic changes.Serial troponins are normal. Patient is not wheezing.There is no sign of fluid overload.Patient is pain free.She is on room air.There is no evidence of Pneumonia.Procalcitonin level is normal.Patient is feeling at her base line.She is ambulatory. Patient was evaluated by cardiology, no further work up is needed. Creatinin has come down to 1.5, will need follow up BMP in one week.This issue was discussed with patient in detail. Patient will follow up with PCP and her qa automation engineer. Management plan was discussed in detail with patient. Education was provided.
[2018-03-28 12:32] VITALS: BP 114/67; PULSE 74; TEMP 97.8
--- NOTE | 2018-03-28 14:58 | PN ---
DATE: 03/28/2018 TYPE OF DICTATION: Addendum to initial progress note dictated by the nurse practitioner. REASON FOR ADDENDUM: The patient was seen, looks okay. Repeat chest x-ray did not show any evidence of infiltrate. We will restart gentle diuretics and we will discontinue telemetry. Okay to be discharged. Discussed with Brittany Casas MD, attending. Continue Cardizem CD 120 mg daily, Lasix 20 mg daily. Continue baby aspirin 81 mg, continue metoprolol. Brittany Beebe MD
[2018-04-02] MEDS ORDERED: Ergocalciferol 50,000 Intl Units Cap PO SCH (10:00)
--- NOTE | 2018-04-07 08:01 | PQF ---
PROVIDER RESPONSE TEXT: Patient has Diastolic CHF,EF 11/27/17 was 65%. Patient did not show any sign of exacerbation of diast olic CHF at the time of admission. She was euvolemic. REVIEWER QUERY TEXT: CHF Acuity and Type Congestive Heart Failure is documented in the Medical Record. Please document the type and acuity (in cludes probable or suspected) Such as: Type: -- Systolic -- Diastolic -- Combined -- Other, please specify Acuity: -- Acute -- Chronic -- Acute on chronic -- Other, please specify Also please document the underlying cause of the CHF (includes probable or suspected) The patient's Clinical Indicators include: Patient with h/o CHF but no exacerbation on lasix 40 mg with elevated BNP =802. Please document the t ype and acuity. Thank you. Query created by: Drea Dee on 03/31/2018 10:09 AM Electronically signed by: Brittany Casas MD 04/07/2018 7:59 AM
== END 2018-03-28 13:51 | disposition home or self-care (01) | DRG 190 ==
LOC: ED 14:10 → ERH 17:19 → 2RNO 20:14
PROVIDERS: ADMIT Internal Medicine; ATTEND Internal Medicine
PROC: 3E0234Z Introduction of Serum, Toxoid and Vaccine into Muscle, Percutaneous Approach (ICD-10-PCS; principal; 2018-03-28)
DX: J44.0 Chronic obstructive pulmonary disease with (acute) lower respiratory infection (principal); J18.9 Pneumonia, unspecified organism; I50.30 Unspecified diastolic (congestive) heart failure; I48.0 Paroxysmal atrial fibrillation; I25.10 Atherosclerotic heart disease of native coronary artery without angina pectoris; E87.5 Hyperkalemia; D64.9 Anemia, unspecified; I34.0 Nonrheumatic mitral (valve) insufficiency; I34.1 Nonrheumatic mitral (valve) prolapse; Z95.3 Presence of xenogenic heart valve; Z23 Encounter for immunization; Z87.440 Personal history of urinary (tract) infections; Z91.19 Patient's noncompliance with other medical treatment and regimen

== ENCOUNTER 2018-07-21 11:37 | Outpatient (CLI) | payer MEDICARE | END 2018-07-21 11:38 | disposition home or self-care (01) | LOC: LAB 11:37 | DX: J44.1 Chronic obstructive pulmonary disease with (acute) exacerbation (principal); I50.32 Chronic diastolic (congestive) heart failure; I11.9 Hypertensive heart disease without heart failure; E78.00 Pure hypercholesterolemia, unspecified; I48.0 Paroxysmal atrial fibrillation; J45.998 Other asthma ==

== ENCOUNTER 2018-08-22 12:01 | Emergency (ER) | payer MEDICARE ==
[2018-08-22 12:19] VITALS: BMI 25.0
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
[2018-08-22 12:20] VITALS: TEMP 97.7; O2SAT 98
--- NOTE | 2018-08-22 13:02 | CT ---
Date of service: 08/22/2018 PROCEDURE: CT MAXILLOFACIAL BONES WITHOUT CONTRAST HISTORY: trauma COMPARISON: None available. TECHNIQUE: Contiguous axial CT images of the maxillofacial bones were obtained. Coronal and sagittal reformats were generated. Radiation dose: Total exam DLP = 831.34 mGy-cm. This CT exam was performed using one or more of the following dose reduction techniques: Automated exposure control, adjustment of the mA and/or kV according to patient size, and/or use of iterative reconstruction technique. FINDINGS: NASAL BONES: Unremarkable. ORBITS: Unremarkable. PARANASAL SINUSES/ MASTOIDS: Mild mucosal thickening of the right maxillary sinus is noted. The patient is likely status post prior left maxillary sinus surgery. MAXILLA: Unremarkable. MANDIBLE/ TEMPOROMANDIBULAR JOINTS: Unremarkable. SKULL BASE: Unremarkable. TEMPORAL BONES: Middle ears and mastoid grossly unremarkable. OTHER FINDINGS: None. IMPRESSION: No definite evidence of acute fracture. Right periorbital soft tissue swelling.
--- NOTE | 2018-08-22 13:09 | CT ---
Date of service: 08/22/2018 PROCEDURE: CT HEAD WITHOUT CONTRAST. HISTORY: trauma COMPARISON: Comparison is made with 01/02/2018 TECHNIQUE: Axial computed tomography images were obtained through the head/brain without intravenous contrast. Radiation dose: Total exam DLP = 826.02 mGy-cm. This CT exam was performed using one or more of the following dose reduction techniques: Automated exposure control, adjustment of the mA and/or kV according to patient size, and/or use of iterative reconstruction technique. FINDINGS: HEMORRHAGE: No intracranial hemorrhage. BRAIN: No mass effect or edema. Mild atrophy and chronic microvascular white matter ischemic disease are again VENTRICLES: Unremarkable. No hydrocephalus. CALVARIUM: Unremarkable. PARANASAL SINUSES: Unremarkable as visualized. No significant inflammatory changes. MASTOID AIR CELLS: Unremarkable as visualized. No inflammatory changes. OTHER FINDINGS: None. IMPRESSION: No evidence of acute intracranial hemorrhage intracranial collection mass effect or midline shift. The atrophy and chronic microvascular white matter ischemic disease.
[2018-08-22] MEDS ORDERED: TDAP Vaccine 0.5 mL Syr IM ONE (13:53)
[2018-08-22 14:42] VITALS: BP 140/63; PULSE 107
[2018-08-22 16:19] VITALS: RESP 18
== END 2018-08-22 14:52 | disposition home or self-care (01) ==
LOC: ED 12:01
DX: S01.81XA Laceration without foreign body of other part of head, initial encounter (principal); W18.2XXA Fall in (into) shower or empty bathtub, initial encounter; Y93.E1 Activity, personal bathing and showering; I48.91 Unspecified atrial fibrillation; J44.9 Chronic obstructive pulmonary disease, unspecified; I25.10 Atherosclerotic heart disease of native coronary artery without angina pectoris; I50.9 Heart failure, unspecified; I10 Essential (primary) hypertension; Z23 Encounter for immunization